=== PATIENT | male | born 1940 | race Caucasian/White ===

== ENCOUNTER → 2017-07-14 10:45 | Outpatient (CLI) | payer MEDICARE, OTHER, SELFPAY ==
--- NOTE | 2017-07-19 18:49 | LEAS_ITS ---
Arterial Study - Arterial Study Arterial Study: This is a 76-year-old male with a history of diabetes mellitus and coronary artery disease. The patient is suspected of having peripheral arterial occlusive disease, and is brought to the noninvasive vascular laboratory at this time for the purpose of bilateral noninvasive lower extremity arterial assessment. Doppler signal assessment was used to evaluate the pulses at ankle level bilaterally. On the right, the posterior tibial and dorsalis pedis pulses were triphasic. On the left, the posterior tibial and dorsalis pedis pulses were biphasic. Segmental limb pressures were obtained bilaterally. The right low thigh pressure and the right calf pressure were not obtained. The right ankle pressure, as determined by posterior tibial and dorsalis pedis pulses, could not be obtained due to the noncompressibility of the vasculature. The right digital pressure was measured at 126 mmHg. The left low thigh pressure was measured at 210 mmHg. The left calf pressure was measured at 205 mmHg. The left ankle pressure, as determined by posterior tibial pulse, was measured at 101 mmHg. The left ankle pressure, as determined by dorsalis pedis pulse, was measured at 116 mmHg. The left digital pressure was measured at 75 mmHg. Pulse-volume recordings were obtained bilaterally and segmentally. Waveform amplitudes appeared to be satisfactory at all levels bilaterally, but for the left ankle and left digital levels, which were diminished. The resting right ankle-brachial index could not be determined due to the noncompressibility of the vasculature. The resting left ankle-brachial index was calculated to be 0.77. Digital-brachial indices were calculated bilaterally. The right digital- brachial index was calculated to be 0.84. The left digital-brachial index was calculated to be 0.50. Impression: Based upon the findings of this resting noninvasive lower extremity arterial study, there is evidence of arterial calcification at ankle level in the right lower extremity. This precludes determination of an ankle-brachial index in the right lower extremity. However, triphasic waveforms are noted at ankle level in the right lower extremity, and the right digital-brachial index is normal. These findings are suggestive of relatively normal arterial flow in the right lower extremity. In the left lower extremity, biphasic waveforms were noted at ankle level, and the resting left ankle-brachial index and the left digital-brachial index are moderately diminished. 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 Clinical correlation is advised.
== END ==
PROVIDERS: Family Provider Family Medicine; PCP Family Medicine; Visit Provider Family Medicine
DX: I73.9 Peripheral vascular disease, unspecified (principal)
CPT/HCPCS: 93923

== ENCOUNTER 2017-09-02 16:15 | Emergency (ER) | payer MEDICARE, OTHER, SELFPAY ==
[2017-09-02 16:15] VITALS: BP 152/86; PULSE 109; RESP 16; TEMP 37.2; O2SAT 93; BMI 31.7
--- NOTE | 2017-09-02 16:31 | CT_ITS ---
STUDY: CT BRAIN WITHOUT CONTRAST REASON FOR EXAM: Male, 76 years old. Trauma. RADIATION DOSAGE (If Supplied By Facility): CTDIvol = ( 60.81 ) mGy, DLP = ( 1135.50 ) mGycm TECHNIQUE: Transaxial CT imaging of the brain was performed without administration of intravenous contrast material. Individualized dose optimization techniques were used for this CT. COMPARISON: 12/12/2016 FINDINGS: There is a stable partially calcified mass in the right cerebellopontine angle which likely represents a meningioma. There is no acute bleed or infarct. There are stable chronic ischemic and atrophic changes. The ventricles are normal in configuration. There is no hydrocephalus. The visualized paranasal sinuses are clear. The mastoid air cells are well aerated. There is no skull fracture. There is soft tissue swelling overlying the forehead. CT/Brain/Head without Contrast IMPRESSION: Stable chronic ischemic and atrophic changes. No acute intracranial abnormality. Stable partially calcified mass in the right cerebellopontine angle which likely represents a meningioma. Soft tissue swelling overlying the forehead. Electronically Signed: Leonard Harmon, at 17:05 EDT Tel , Service support ,
--- NOTE | 2017-09-02 16:31 | RAD_ITS ---
STUDY: X-RAY - LEFT WRIST REASON FOR EXAM: Male, 76 years old. Fall TECHNIQUE: 3 view(s) of the wrist were obtained. COMPARISON: None. FINDINGS: There is an impacted fracture of the distal radius. There is a lucency in the ulnar styloid which likely represents a nondisplaced fracture. There are moderate to severe degenerative changes in the carpal bones. There are no radiodense foreign bodies. RAD/Wrist min 3 Views IMPRESSION: Impacted fracture of the distal radius. Lucency in the ulnar styloid which likely represents a nondisplaced fracture. Degenerative change. Electronically Signed: Leonard Harmon, at 16:59 EDT Tel , Service support ,
--- NOTE | 2017-09-02 17:29 | ED.DCSUM_ITS ---
- ER Visit Summary Date of Service: 09/02/17 Chief Complaint: Fall History of Present Illness: The patient is a [address] Funes. He reports that he was laying down to put a call in on a bird feeder and lost his balance and fell forward. He tried to catch himself. He did hit his head. No loss of consciousness. No pain. He is right-hand dominant. He reports his left wrist pain that is 10 out of 10 with movement 8 out of 10 at rest. He denies any paresthesias. Is unsure when his last tetanus was. Physical Examination: Vitals: Stable. Afebrile. Head: Her centimeter hematoma to the left side of his forehead with a central abrasion. There is no laceration. Neck: No vertebral tenderness. Full ROM without difficulty. Cleared by NEXUS criteria. Back: No vertebral tenderness. General: A&O x 3. NAD. Cardiovascular exam: Regular rate and rhythm, no murmur, rub or gallop. Respiratory exam: Chest nontender. No crepitus. Clear to auscultation bilaterally. No wheezes or stridor. Abdominal exam: Soft, nontender, nondistended, normal bowel sounds. No pain in RUQ or LUQ specifically. No peritoneal signs. Extremity: Moderate tenderness palpation of the distal left radius. There is an obvious deformity. He is neurovascular intact distally.. Test Results: CT brain shows no acute disease. Does show a partially calcified mass in the right cerebellarpontine angle which is likely meningioma. Left wrist x-ray shows an impacted distal radius fracture with intra-articular extension. Emergency Department Course and Treatment: Patient was treated with oxycodone p.o. He had his tetanus updated. He was placed in an AP Ortho-Glass splint. Treatment Plan: Patient be discharged instructions from Dr. Ramirez in 1 week for another exam. Return to the emergency department for any worsening symptoms. Disposition: To home in improved and stable condition. Impression: 1. Fall. 2. Left distal radius fracture. 3. Left forearm AP splint, fabricated. This note was generated with [employer] software. It may contain incorrect words, spelling, and punctuation that were not noted in review of the chart prior to signing ED Disposition - Plan for ED Patient: Disposition: Home or Assisted Living Chief Complaint: Fall Instructions: ED Fx Colles Wrist No Redu Requ Prescriptions: Oxycodone HCl/Acetaminophen [Percocet 5/325] 1 tablet PO Q6H PRN PRN 5 Days #20 tablet PRN Reason: Pain Docusate Sodium [Colace] 100 mg PO DAILY #20 capsule Referrals: Leonard Ramirez MD [STAFF PHYSICIAN] - 1 Week
[2017-09-02] MEDS: Diphth,Pertuss(Acell),Tet Vac 0.5 ML Vial IM (17:40)
[2017-09-02] MEDS: oxyCODONE 5 MG Tablet PO (17:40)
[2017-09-02 18:14] VITALS: BP 148/82; PULSE 92; RESP 16; O2SAT 93
== END 2017-09-02 18:15 | disposition home or self-care (01) ==
PROVIDERS: Emergency Provider Emergency Medicine; Family Provider Family Medicine; PCP Family Medicine
DX: S52.572A Other intraarticular fracture of lower end of left radius, initial encounter for closed fracture (principal); S00.83XA Contusion of other part of head, initial encounter; E11.9 Type 2 diabetes mellitus without complications; I73.9 Peripheral vascular disease, unspecified; G62.9 Polyneuropathy, unspecified; Z79.82 Long term (current) use of aspirin; Z79.84 Long term (current) use of oral hypoglycemic drugs; Z79.899 Other long term (current) drug therapy; W17.89XA Other fall from one level to another, initial encounter; Y93.89 Activity, other specified; Y92.007 Garden or yard of unspecified non-institutional (private) residence as the place of occurrence of the external cause; Y99.8 Other external cause status
CPT/HCPCS: 29125; 70450; 73110; 90715; 99282

== ENCOUNTER → 2017-09-29 13:16 | Outpatient (CLI) | payer MEDICARE, OTHER, SELFPAY ==
[2017-09-29 16:18] LABS: PSA,Total- Diagnostic 1.77 ng/mL (0.0-4.0)
== END ==
PROVIDERS: Family Provider Family Medicine; PCP Family Medicine; Visit Provider Urology
DX: R97.20 Elevated prostate specific antigen [PSA] (principal)
CPT/HCPCS: 36415; 84153

== ENCOUNTER → 2017-10-27 07:51 | Outpatient (CLI) | payer MEDICARE, OTHER, SELFPAY ==
[2017-10-27 10:37] LABS: Hemoglobin A1c 8.2 % (4.2-6.3)
[2017-10-27 11:09] LABS: Microalbumin:Creatinine Ratio 345.7 mg/g CRE (<30 mg/g CRE)
[2017-10-27 11:10] LABS: ALB/GLOB Ratio 1.1 RATIO (0.9-2.4); AST(SGOT) 23 U/L (15-37); Alanine Aminotransfer ALT/SGPT 45 U/L (16-61); Albumin, Serum 3.9 g/dL (3.2-5.0); Alkaline Phosphatase 86 U/L (45-117); Anion Gap 12 (5-15); BUN 23 mg/dL (7-18); BUN/Creat Ratio 20.7 RATIO (10-20); Bilirubin, Direct 0.22 mg/dL (0.00-0.30); Calcium,Total 9.2 mg/dL (8.5-10.1); Chloride 105 mmol/L (98-107); Cholesterol 109 mg/dL (200); Creatinine, Serum 1.11 mg/dL (0.70-1.30); EST Glomerular Filtration Rate 69 mL/min (>60); Est Glom Filt Rate - Afr Amer 83 mL/min (>60); Globulin 3.6 g/dL (2.2-4.2); Glucose 110 mg/dL (74-106); High Density Lipoprotein 40 mg/dL; Potassium 3.9 mmol/L (3.5-5.1); Protein, Total 7.5 g/dL (6.4-8.2); Sodium Level 141 mmol/L (136-145); Triglycerides 51 mg/dL; Very Low Density Lipoprotein 10 mg/dL (5-40)
[2017-10-28 14:04] LABS: Hep C Antibodies 0.1 s/co ratio (0.0-0.9)
== END ==
PROVIDERS: Family Provider Family Medicine; PCP Family Medicine; Visit Provider Nurse Practitioner Family
DX: E11.40 Type 2 diabetes mellitus with diabetic neuropathy, unspecified (principal); E78.5 Hyperlipidemia, unspecified; R53.83 Other fatigue; Z79.899 Other long term (current) drug therapy
CPT/HCPCS: 36415; 80053; 80061; 82043; 82248; 82570; 83036; 86803

== ENCOUNTER 2017-12-07 18:23 | Inpatient (IN) | payer MEDICARE, OTHER, SELFPAY ==
[2017-12-07] VITALS (7 sets, daily range): BP systolic 112–157; BP diastolic 77–109; PULSE 94–116; RESP 20–26; TEMP 36.3–36.7; O2SAT 87–98; BMI 29.8; BMI 32.8
--- NOTE | 2017-12-07 18:45 | ED.VISSUMM ---
- ER Visit Summary Date of Service: 12/07/17 Chief Complaint: Cough History of Present Illness: The patient is a [address] Ayoub, Dr. Phillips, and Dr. Funes. He reports he has a cough began approximately 2 weeks ago. Is nonproductive. He has had chills without fever. Reports he has had shortness of breath over the same timeframe, but it is gotten much worse the past 2 days. States that his shortness of breath is severe at this time. He denies any chest pain or abdominal pain. He has been nauseated and having the dry heaves. He has vomited once. No blood in his emesis. His last bowel was today. No melena or hematochezia. No other complaints. Physical Examination: Vitals: 97.3, 112/77, 116, 24, 87% on room air which is hypoxic General: Well-nourished and well-developed. Head: Normocephalic atraumatic. Neck: Supple, no lymphadenopathy. No JVD. Nontender. Cardiovascular: Tachycardic irregular rhythm with a 2 out of 6 systolic murmur. Respiratory: No respiratory distress. Rhonchi at the left base. Abdominal: Soft, nontender, nondistended, normal bowel sounds. No guarding, rebound, or peritoneal signs. Back: Nontender. Extremities: Nontender, 1+ pitting edema over his lower extremities bilaterally. Skin: Normal color, no rash. Neurologic: Alert and oriented ?3. Cranial nerves II through XII are intact. Normal strength and sensation. Psych: Normal affect. Test Results: EKG is sinus tach at 108 with PACs, PVCs, right bundle branch block. Chem-7 is more for chloride 109, BUN 25, glucose 190. Initial troponin 0 0.041. CBC is marked for an H&H 12.0, 38.7. Segment neutrophils 81 lymphs lites of 9. Lactic acid is 3.8. Chest x-ray read by the radiologist is mild pulmonary valve venous congestion. I do not feel that this explains patient's degree of hypoxia therefore a CTA of the chest was performed. It showed no PE. However, he did have groundglass opacity in the left upper lobe with which is consistent with an interstitial pneumonia. Does have small pleural effusions. Emergency Department Course and Treatment: Patient had an IV placed. He was given Cardizem IV. Patient's blood pressure remained stable while in the emergency department. He was given Levaquin and Zosyn IV. Treatment Plan: Patient was discussed with Dr. Read. He will be admitted to the hospital for further evaluation and treatment. Disposition: Admitted in serious condition. Impression: 1. Atrial fibrillation with RVR. 2. Pneumonia, community-acquired. 3. Severe sepsis. 4. Critical care time 30 minutes. This note was generated with [email or web address] dictation software. It may contain incorrect words, spelling, and punctuation that were not noted in review of the chart prior to signing ED Disposition - Plan for ED Patient: Chief Complaint: Shortness of Breath
[2017-12-07] MEDS: 0.9% Normal Saline 1,000 ML 150 ML IV (18:58)
[2017-12-07] MEDS: dilTIAZem 25 MG/5 ML Vial 20 MG IV BOLUS (18:58)
[2017-12-07 19:12] LABS: Absolute Lymphocyte Count 0.59 X10^3/ul (0.83-4.51); Absolute Neutrophil Count 5.1 X10^3/uL (2.0-7.7); Basophil# 0.02 X10^3/uL; Basophil% 0.3 % (0-1); Eosinophil# 0.06 X10^3/uL; Eosinophils% 0.9 % (0-5); Hematocrit 38.7 % (40-54); Lymphocyte # 0.59 X10^3/ul (4.0); Lymphocyte % 9.3 % (19-41); Mean Corpuscular Hgb 27.6 pg (27.0-32.0); Mean Platelet Vol. 10.2 fl (6.2-12.0); Monocyte# 0.49 X10^3/uL; Monocyte% 7.8 % (0-10); Neutrophil # 5.12 X10^3/uL (2.7-7.7); Neutrophil % 81.1 % (47-70); Platelet Count 202 K/mm3 (150-450); RBC Distribution Width CV 16.4 % (11.6-14.6); RBC Distribution Width SD 53.1 fl (35.1-43.9); Red Blood Count 4.35 M/mm3 (4.6-6.2); White Blood Count 6.3 K/mm3 (4.4-11.0)
[2017-12-07 19:14] LABS: Differential Indicated SCAN CRITERIA MET; POSITIVE COUNT NO; POSITIVE DIFFERENTIAL YES; POSITIVE MORPHOLOGY NO
[2017-12-07 19:33] LABS: BUN 25 mg/dL (7-18); Estimated Creatinine Clearance 48.96 ml/min; Glucose 190 mg/dL (74-106)
[2017-12-07 19:34] LABS: Anion Gap 13 (5-15); BUN/Creat Ratio 20.8 RATIO (10-20); Calcium,Total 9.1 mg/dL (8.5-10.1); Chloride 109 mmol/L (98-107); EST Glomerular Filtration Rate 63 mL/min (>60); Est Glom Filt Rate - Afr Amer 76 mL/min (>60); Sodium Level 143 mmol/L (136-145)
[2017-12-07 19:38] LABS: Platelet Estimate ADEQUATE (ADEQ)
[2017-12-07 19:39] LABS: Red Cell Morphology NORM C+C NORMAL (NORM C&C)
[2017-12-07 19:43] LABS: Lactic Acid 3.8 mmol/L (0.4-2.0)
--- NOTE | 2017-12-07 19:52 | ED.RN ---
lactic of 3.8 reported to . verbalized understanding
--- NOTE | 2017-12-07 21:12 | PCM.HP.STD ---
Problem List (1) Severe sepsis Status: Acute (2) Pneumonia Status: Acute Qualifiers: Pneumonia type: due to unspecified organism Laterality: left Lung location: upper lobe of lung Qualified Code(s): J18.1 - Lobar pneumonia, unspecified organism (3) Sick sinus syndrome Status: Chronic (4) CLEMENT (obstructive sleep apnea) Status: Chronic (5) Congestive heart failure, unspecified Status: Chronic Qualifiers: Heart failure type: unspecified Heart failure chronicity: unspecified Qualified Code(s): I50.9 - Heart failure, unspecified (6) Carotid artery stenosis Status: Chronic Qualifiers: Laterality: unspecified laterality Qualified Code(s): I65.29 - Occlusion and stenosis of unspecified carotid artery (7) Chronic atrial fibrillation Status: Chronic (8) Atherosclerotic heart disease of robinson coronary artery without angina pectoris Status: Chronic Qualifiers: [place] vs. transplanted heart: unspecified whether robinson or transplanted heart Qualified Code(s): I25.10 - Atherosclerotic heart disease of robinson coronary artery without angina pectoris (9) History of maze procedure Status: Chronic Comment: mitral valve repair and MAZE procedure 01/24/[address] Tolliver @ [facility] (10) Duodenal ulcer Status: Chronic (11) Hyperlipidemia Status: Chronic Qualifiers: Hyperlipidemia type: pure hypercholesterolemia Qualified Code(s): E78.00 - Pure hypercholesterolemia, unspecified; E78.0 - Pure hypercholesterolemia (12) Status post placement of cardiac pacemaker Status: Chronic Comment: Permanent pacemaker placement 02/02/16 @ [facility] (13) Status post mitral valve repair Status: Chronic Comment: mitral valve repair and MAZE procedure 01/24/[address] Tolliver @ [facility] (14) Status post aortic valve replacement with bioprosthetic valve Status: Chronic Comment: Aortic Valve Replacement w/ 23-mm Jay-Aragon pericardial valve (15) DM2 (diabetes mellitus, type 2) Status: Chronic Qualifiers: Diabetes mellitus senior living insulin use: without senior living use Diabetes mellitus complication status: with unspecified complications Qualified Code(s): E11.8 - Type 2 diabetes mellitus with unspecified complications History of Present Illness Date of Admission: 12/07/17 Chief Complaint: Cough, Dyspnea, Weakness The patient is a 77 y/o M w/ PMHx: PAF s/p MAZE, Diabetes mellitus type II, GERD w/ Hx duodenal Ulcer, 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 CHF history, PAD/Carotid Disease, CLEMENT, HTN, HLD, s/p pacemaker status, Osteoarthritis, Anxiety and Depression who presents to the [facility] ED on 12/07/17 with history of ongoing progressively worsening dyspnea, not markedly productive cough, debilitating weakness x 2 weeks but worsened over the last 2 days. and patient note that he was seen this past year by Dr. Phillips and treated for fungal infection but improved following. In the ED work-up included T 97.3, heart rate 116, BP 112/77, respiratory rate 24 with 87% on room air--> 95% on 2 L nasal cannula, CBC with WBC 6.3, hemoglobin 12, platelet 202, BMP with chloride 109, BUN/creatinine 25/1.20, glucose 190, lactic acid 3.8, troponin 0 0.041, chest x-ray with cardiac enlargement and mild congestion, CTPA with no evidence of acute PE, mild mediastinal adenopathy, groundglass opacity left upper lobe suspicious for pneumonia, small pleural effusions, mild ascites. In the ED patient administered Cardizem 20 mg IV ?1 bolus, normal saline 1 L, Levaquin, Rocephin IV. Past Medical History Past Medical History (Chronic Problems): Chronic Problems (Last Updated 09/16/17 @ 19:52 by Gilma Phelps) Sick sinus syndrome (Chronic) CLEMENT (obstructive sleep apnea) (Chronic) Congestive heart failure, unspecified (Chronic) Other secondary pulmonary hypertension (Chronic) Nonrheumatic mitral valve regurgitation (Chronic) Nonrheumatic aortic (valve) stenosis (Chronic) Nonrheumatic aortic (valve) insufficiency (Chronic) Carotid artery stenosis (Chronic) Chronic atrial fibrillation (Chronic) Atherosclerotic heart disease of robinson coronary artery without angina pectoris (Chronic) History of maze procedure (Chronic) mitral valve repair and MAZE procedure 01/24/[address] Tolliver @ [facility] UGIB (upper gastrointestinal bleed) (Chronic) Duodenal ulcer (Chronic) Physical debility (Chronic) Supratherapeutic INR (Chronic) Hypokalemia (Chronic) Pancytopenia (Chronic) Symptomatic anemia (Chronic) Sepsis (Chronic) Hyperlipidemia (Chronic) Status post placement of cardiac pacemaker (Chronic) Permanent pacemaker placement 02/02/16 @ [facility] Status post mitral valve repair (Chronic) mitral valve repair and MAZE procedure 01/24/[address] Tolliver @ [facility] 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) Aortic Valve Replacement w/ 23-mm Jay-Aragon pericardial valve Atrial fibrillation (Chronic) DM2 (diabetes mellitus, type 2) (Chronic) Medical History: Medical History (Last Updated 09/16/17 @ 19:52 by Gilma Phelps) Sick sinus syndrome (Chronic) I49.5 CLEMENT (obstructive sleep apnea) (Chronic) G47.33 Congestive heart failure, unspecified (Chronic) I50.9 Other secondary pulmonary hypertension (Chronic) I27.29 Nonrheumatic mitral valve regurgitation (Chronic) I34.0 Nonrheumatic aortic (valve) stenosis (Chronic) I35.0 Nonrheumatic aortic (valve) insufficiency (Chronic) I35.1 Carotid artery stenosis (Chronic) I65.29 Chronic atrial fibrillation (Chronic) I48.2 Atherosclerotic heart disease of robinson coronary artery without angina pectoris (Chronic) I25.10 Hyperlipidemia (Chronic) E78.5 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) Z95.3 Aortic Valve Replacement w/ 23-mm Jay-Aragon pericardial valve DM2 (diabetes mellitus, type 2) (Chronic) E11.9 Hypothyroidism E03.9 Allergies No Known Allergies Allergy (Verified 12/07/17 18:24) Home Medications: Ambulatory Orders Medication Instructions Recorded Glimepiride [Amaryl] 4 mg PO DAILY@0800 #30 tab 02/25/17 Metformin HCl [Glucophage] 500 mg PO BIDCM #30 tab 02/25/17 Pioglitazone [Actos] 30 mg PO DAILY@0800 #30 tab 02/25/17 aspirin 81 mg tablet,delayed 81 mg PO QDAY 07/24/17 release sertraline 100 mg tablet 100 mg PO QDAY 30 Days #30 tab 07/24/17 Cilostazol [Pletal] 100 mg PO DAILY 12/07/17 Surgical History: Surgical History (Last Reviewed 07/24/17 @ 09:26 by Abhishek Ayoub MD) History of maze procedure (Chronic) Z98.890 mitral valve repair and MAZE procedure 01/24/[address] Tolliver @ [facility] Status post placement of cardiac pacemaker (Chronic) Z95.0 Permanent pacemaker placement 02/02/16 @ [facility] Status post mitral valve repair (Chronic) Z98.890 mitral valve repair and MAZE procedure 01/24/[address] 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 Psychiatric History: No pertinent psych hx Lives: Spouse/ Significant Other Smoking Status: Former smoker Tobacco Use: Non-smoker Alcohol: None Drugs: None - *Family History Maternal Family History: Family History (Last Reviewed 07/24/17 @ 09:26 by Abhishek Ayoub MD) Mother Myocardial infarction CAD (coronary artery disease) Hypertension Sister Hypertension CVA (cerebral vascular accident) Son Diabetes History Items: Heart Disease, Hypertension Paternal Family History: Family History (Last Reviewed 07/24/17 @ 09:26 by Abhishek Ayoub MD) Mother Myocardial infarction CAD (coronary artery disease) Hypertension Sister Hypertension CVA (cerebral vascular accident) Son Diabetes History Items: No pertinent history Sibling Family History: Family History (Last Reviewed 07/24/17 @ 09:26 by Abhishek Ayoub MD) Mother Myocardial infarction CAD (coronary artery disease) Hypertension Sister Hypertension CVA (cerebral vascular accident) Son Diabetes History Items: Hypertension, Stroke Offspring Family History: Family History (Last Reviewed 07/24/17 @ 09:26 by Abhishek Ayoub MD) Mother Myocardial infarction CAD (coronary artery disease) Hypertension Sister Hypertension CVA (cerebral vascular accident) Son Diabetes History Items: Diabetes Review of Systems Constitutional: Reports: Anorexia, Malaise, Weakness, Fatigue. Denies: Chills, Fever, Weight Change HEENT: Denies: Head Aches, Sinus Congestion, Sinus Drainage Cardiovascular: Denies: Chest Pain, Palpitations Respiratory: Reports: Cough, Shortness of Breath, Shortness of breath at rest, Shortness of breath upon exertion, Wheezing. Denies: Sputum production Gastrointestinal: Denies: Abdominal Pain, Nausea, Vomiting Genitourinary: Denies: Dysuria Musculoskeletal: Reports: Back Pain. Denies: Joint Pain, Joint Tenderness Skin: Denies: Rash, Wounds Neurological: Denies: Numbness, Tingling, Focal weakness Psychiatric: Reports: Anxiety, Depression. Denies: Homicidal Ideations, Suicidal Ideations Hematologic/ Lymphatic: Reports: Anemia, Easy Bruising, Easy Bleeding VTE Information - Inpt Only VTE Present on Admission: No VTE Mechan Device Prophylaxis: SCD's VTE Pharm Prophylaxis ordered?: Yes Patient Problems: Active and Suspected Problems (Last Updated 09/16/17 @ 19:52 by Gilma Phelps) Severe sepsis (Acute) Pneumonia (Acute) Subjective: Seated upright in the ED bed, fatigued appearing, increased respiratory rate, accessory muscle usage, intermittent desaturations noted. Objective: Physical Examination: General: awake, alert, oriented x 3 and cooperative, seated upright in the ED bed, increased work of breathing, accessory muscle usage, intermittent desaturations, fatigued appearing. Skin: normal color, turgor, no icterus, cyanosis. HEENT: AT/NC, EOMI, PERRLA, dry MM, no carotid bruits or JVD noted. Lungs: Severely diffusely diminished breath sounds, greater bases, occasional expiratory wheeze, rales, increased work of breathing, accessory muscle usage. Heart: Tachycardic with regular rhythm; no gallop, rub audible, SM. Abdomen: soft, NTTP, ND, normal BS, no HSM. Extremities: no cyanosis, clubbing, BL ankle edema. Neurological: patient awake, alert, oriented x 3; cognitive function intact; pupils equally reactive to light and accomodation; cranial nerves II-XII grossly normal, moving all 4 extremities, no focal deficits, strength severely globally decreased secondary to acute presentation. Psychiatric: affect appears fatigued, no acute evidence of depressive or anxiety feelings. - Physical Exam Vital Signs Temp Pulse Resp BP Pulse Ox 97.3 F L 97 26 H 150/100 H 95 12/07/17 18:23 12/07/17 20:19 12/07/17 20:19 12/07/17 20:19 12/07/17 20:19 Oxygen Flow Rate (L/min) 2 Oxygen Delivery Method Nasal Cannula Weight: 190 lb 11.198 oz Body Mass Index (BMI) 29.8 Finger Stick Blood Glucose 235 Laboratory Tests Past 24 Hrs 12/07/17 12/07/17 12/07/17 18:45 18:45 18:45 WBC 6.3 RBC 4.35 L Hgb 12.0 L Hct 38.7 L MCV 89.0 MCH 27.6 MCHC 31.0 L RDW 16.4 H RDW Differential 53.1 H Plt Count 202 MPV 10.2 Immature Gran % (Auto) 0.600 Neut % (Auto) 81.1 H Lymph % (Auto) 9.3 L [place] % (Auto) 7.8 Eos % (Auto) 0.9 Baso % (Auto) 0.3 Absolute Neuts (auto) 5.1 Absolute Lymphs (auto) 0.59 L Total Counted Not Reportable Differential Comment SEE COMMENT Platelet Estimate ADEQUATE RBC Morphology NORM C+C Sodium 143 Potassium 4.0 Chloride 109 H Carbon Dioxide 21.0 Anion Gap 13 BUN 25 H Creatinine 1.20 Estim Creat Clear Calc 48.96 Est GFR (MDRD) Af Amer 76 Est GFR (MDRD) Non-Af 63 BUN/Creatinine Ratio 20.8 H Glucose 190 H Lactic Acid 3.8 H Calcium 9.1 Troponin I 0.041 Assessment/Plan All Active Problems (Last Updated 09/16/17 @ 19:52 by Gilma Phelps) Severe sepsis (Acute) Pneumonia (Acute) Aortic stenosis, severe (Resolved) The patient is a 77 y/o M w/ PMHx: PAF s/p MAZE, Diabetes mellitus type II, GERD w/ Hx duodenal Ulcer, 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 CHF history, PAD/Carotid Disease, CLEMENT, HTN, HLD, s/p pacemaker status, Osteoarthritis, Anxiety and Depression who presents to the [facility] ED on 12/07/17 with history of ongoing progressively worsening dyspnea, not markedly productive cough, debilitating weakness x 2 weeks but worsened over the last 2 days. (1) Severe Sepsis secondary to Acute Hypoxic Respiratory Failure secondary to Community Acquired Pneumonia, Possible Gram Negative Organism: ED work-up included T 97.3, heart rate 116, BP 112/77, respiratory rate 24 with 87% on room air--> 95% on 2 L nasal cannula, CBC with WBC 6.3, hemoglobin 12, platelet 202, BMP with chloride 109, BUN/creatinine 25/1.20, glucose 190, lactic acid 3.8, troponin 0 0.041, chest x-ray with cardiac enlargement and mild congestion, CTPA with no evidence of acute PE, mild mediastinal adenopathy, groundglass opacity left upper lobe suspicious for pneumonia, small pleural effusions, mild ascites. Notable increased work of breathing, accessory muscle usage and hypoxia as noted upon presentation to the ED. Will admit to PCU given his severity, maintain on oxygen with wean as tolerated to room air, continue ATC duonebs, PRN albuterol, maintained on IV Levaquin and Rocephin given severity, HOB, IS parameters w/ pending sputum cultures and urine antigens as well as viral respiratory panel. Bld cx x 2 obtained in the ED. Lactic acid repeat trending per facility protocol. PT, OT, CM for discharge planning. ABG pending. (2) Valvular Heart Disease s/p MV Repair and AVR w/ bovine bioprosthetic valve, 11/15/16 ECHO w/ moderate concentric LVH, EF 65%, moderately dilated RV, severely enlarged LA, severe enlarged RA, moderate diffuse MV thickening, moderate MV stenosis, moderately severe TV insufficiency, moderate pulmonary hypertension, RVSP 49 mmHg. (3) ? CHF history: Not previously noted, not in recent 07/2017 Cardiology office visit, maintain on regimen asa, pletal, not on statin or BB nor ACEI. (4) PAF s/p MAZE: Sinus tachycardia with PAC, PVC w/ administration cardizem bolus in the ED with improvement. 11/15/16 ECHO w/ moderate concentric LVH, EF 65%, moderately dilated RV, severely enlarged LA, severe enlarged RA, moderate diffuse MV thickening, moderate MV stenosis, moderately severe TV insufficiency, moderate pulmonary hypertension, RVSP 49 mmHg. Maintained on asa, pletal as noted. (5) Diabetes mellitus type II: Hold oral home regimen, ADA diet, accu checks w/ ISS. (6) GERD w/ Hx duodenal Ulcer: Famotidine. (7) PAD/Carotid Disease: Maintain on home asa, pletal. (8) Anxiety and Depression: Maintain on home sertraline regimen. (9) CLEMENT: CPAP q HS. (10) Hx Sick Sinus Syndrome: s/p pacemaker placement. (11) DVT prophylaxis: SCDs, lovenox. (12) CODE status: Patient does have living will in place. is HCPOA and present during discussions. Discussed CODE status at length including difference between FULL code, DNR-CCA and DNR-CC status. Following discussions about the differences in these status, confirmed with and patient DNR-CCA, no intubation status. Advanced Care Planning Face to Face Time: 18 minutes. Code Visit Inpatient E&M: 35998 Init Hosp L3 Procedures: 63683 Advncd Care Plan 30 Min
[2017-12-07] MEDS: levoFLOXacin IV 750 MG/150 ML BAG 150 MG IV (21:28)
--- NOTE | 2017-12-07 21:55 | NURSING ---
Called [facility] ED charge nurse, tita to send patient to the floor.
[2017-12-07 22:55] LABS: Reflex Lactate? Y
[2017-12-07] MEDS: 0.9% Normal Saline 1,000 ML 125 ML IV (23:45)
[2017-12-07 23:57] LABS: Magnesium 2.1 mg/dL (1.6-2.6)
[2017-12-08] VITALS (19 sets, daily range): BP systolic 115–142; BP diastolic 71–98; PULSE 96–139; RESP 12–34; TEMP 36.1–37.1; O2SAT 88–98
[2017-12-08] LABS: Lactic Acid 2.2 mmol/L (0.4-2.0)
[2017-12-08] MEDS: Famotidine 20 MG Tablet PO ×3 (00:05→22:06)
[2017-12-08] MEDS: guaiFENesin 1,200 MG Tablet 1200 MG PO ×3 (00:10→22:06)
[2017-12-08 00:11] LABS: Bedside Glucose 119 mg/dL (70-110)
[2017-12-08 01:01] LABS: Allen Test POS; Base Excess -4 mmol/L (-2 to +2); Bicarbonate 19.1 mmol/L (22-26); Blood Gas Specimen Type ART; EPAP 10; FI02 30; PO2 102 mmHG (75-100); RR 28; SITE R Radial; SO2 98 % (95-99); Time Given 45; Total Carbon Dioxide 20 mmol/L; pCO2 25.7 mmHg (35-45); pH 7.48 (7.35-7.45)
[2017-12-08] MEDS: 0.9% Normal Saline 1,000 ML 125 ML IV (03:43)
[2017-12-08 05:54] LABS: Lactic Acid 1.4 mmol/L (0.4-2.0)
[2017-12-08] MEDS: Ipratropium/Albuterol Sulfate 3 ML AMPUL.NEB INHALATION ×4 (07:41→19:07)
[2017-12-08 07:46] LABS: Bedside Glucose 93 mg/dL (70-110)
--- NOTE | 2017-12-08 07:47 | NURSING ---
Per Eliana RN pt's blood sugar in the 50's at 0700. Eliana RN gave patient 2 orange juices and peanut butter crackers. This nurse rechecked blood sugar at 0715 and it was 66. Blood sugar recheck at 0740 was 93. Pt. was asymptomatic.
[2017-12-08] MEDS: Ceftriaxone 1 GM/50 ML BAG IV (09:15)
[2017-12-08] MEDS: Enoxaparin 40 MG/0.4 ML Syringe SC (09:30)
[2017-12-08] MEDS: Aspirin E.C. 81 MG Tablet PO (09:30)
[2017-12-08] MEDS: Sertraline 100 MG Tablet PO (09:30)
[2017-12-08] MEDS: Cilostazol 50 MG Tablet 100 MG PO (09:30)
[2017-12-08] MEDS: levoFLOXacin IV 750 MG/150 ML BAG 100 MG IV (10:13)
[2017-12-08] MEDS: Insulin Lispro 100 UNIT/ML INSULN.PEN SC ×2 (11:24→22:06)
[2017-12-08 11:36] LABS: Bedside Glucose 224 mg/dL (70-110)
--- NOTE | 2017-12-08 12:51 | PCM.PN.HOSP ---
Patient Problems: Active and Suspected Problems (Last Updated 09/16/17 @ 19:52 by Gilma Phelps) Severe sepsis (Acute) Pneumonia (Acute) Subjective: Breathing better. Coughing with some productive phlegm, unknown color. Vitals/I&O's: Vital Signs Temp Pulse Resp BP Pulse Ox 36.8 C 108 H 18 115/71 94 12/08/17 09:40 12/08/17 11:08 12/08/17 09:40 12/08/17 09:40 12/08/17 09:40 Oxygen Flow Rate (L/min) 2 Oxygen Delivery Method Nasal Cannula Weight: 95 kg Body Mass Index (BMI) 32.8 Intake and Output for Last 24 Hours 12/06/17 12/07/17 12/08/17 23:59 23:59 23:59 Intake Total 65 65 2905 / 2905 Balance 65 2905 / 2905 General: Alert, Cooperative, No apparent distress HEENT: Atraumatic, Normocephalic Oral: Moist Mucosa, No Gingival or Mucosal Lesions/ Ulcerations Neck: No Nodes, Thyroid Normal Size and Texture Lungs: No rhonchi, No wheeze, Diminished Cardiovascular: Regular rate, Regular Rhythm, Normal S1, Normal S2, No murmurs Abdomen: Bowel Sounds Present, Soft, Non Tender, Non-Distended, No Hepato-splenomegaly Extremities: No edema, No Calf Tenderness Skin: No rashes, No breakdown Psych/Mental Status: Normal Affect, Appropriate Microbiology Past 72 Hours 12/07/17 23:34 Mucosa - Nasopharyngeal Respiratory Panel (PCR) - Final 12/08/17 07:53 Urine, Clean Catch Streptococcus pneumoniae Antigen (M - Final 12/08/17 07:53 Urine, Clean Catch Legionella Antigen - Final Laboratory Results 12/07/17 23:25: Lactic Acid 2.2 H 12/07/17 23:25: Magnesium 2.1, Troponin I 0.048 H 12/08/17 00:02: POC Glucose 119 H 12/08/17 00:56: Specimen Type ART, Sample Site R Radial, pH 7.48 H, Bicarbonate Actual 19.1 L, POC Total CO2 20, Base Excess -4 L, O2 Saturation 98, O2 % 30, ABG pCO2 25.7 L, ABG pO2 102 H, Jayson Test POS, Respiration Rate 28, O2 Delivery Device Bi / C PAP, EPAP 10, Blood Gas Notified Whom TORIE GUERRERO, Blood Gas Notified Time 45 12/08/17 01:44: Troponin I 0.056 H 12/08/17 05:18: Troponin I 0.050 H 12/08/17 05:18: Lactic Acid 1.4 12/08/17 07:41: POC Glucose 93 12/08/17 11:21: POC Glucose 224 H Current Medications Acetaminophen (Tylenol) 650 mg PO Q4H PRN PRN PRN Reason: FEVER Acetaminophen (Tylenol) 650 mg PO Q6H PRN PRN PRN Reason: Mild Pain (scale 0-3)/T>100.7 Al Hydroxide/Mg Hydroxide (Mylanta Ii) 30 ml PO Q6H PRN PRN PRN Reason: Gastric burning Albuterol Sulfate (Ventolin Aerosols) 2.5 mg INHALATION Q2H PRN PRN PRN Reason: SHORTNESS OF BREATH Albuterol/Ipratropium (Duoneb) 3 ml INHALATION Q4HWA.RT [facility] Last Admin: 12/08/17 07:41 Dose: 3 ml Aspirin (Ecotrin) 81 mg PO DAILYCM [facility] Last Admin: 12/08/17 09:30 Dose: 81 mg Cilostazol (Pletal) 100 mg PO DAILY [facility] Last Admin: 12/08/17 09:30 Dose: 100 mg Enoxaparin Sodium (Lovenox) 40 mg SC DAILY@1000 [facility] Last Admin: 12/08/17 09:30 Dose: 40 mg Famotidine (Pepcid) 20 mg PO BID [facility] Last Admin: 12/08/17 09:30 Dose: 20 mg Guaifenesin (Mucinex) 1,200 mg PO BID [facility] Last Admin: 12/08/17 09:30 Dose: 1,200 mg Sodium Chloride () 1,000 mls @ 125 mls/hr IV .Q8H [facility] Last Admin: 12/08/17 03:43 Dose: 125 mls/hr Ceftriaxone Sodium (Rocephin) 1 gm in 50 mls @ 100 mls/hr IV Q12 [facility] Last Admin: 12/08/17 09:15 Dose: 100 mls/hr Levofloxacin (Levaquin Iv) 750 mg in 150 mls @ 100 mls/hr IV Q24 [facility] Last Admin: 12/08/17 10:13 Dose: 100 mls/hr Insulin Human Lispro (Humalog Kwikpen (Bkc)) 0 unit SC ACHS SILVA PRN Reason: Protocol Last Admin: 12/08/17 11:24 Dose: 2 u Magnesium Hydroxide (Milk Of Magnesia) 30 ml PO DAILY PRN PRN Reason: Constipation Ondansetron HCl (Zofran) 4 mg IV Q8H PRN PRN PRN Reason: NAUSEA Promethazine HCl (Phenergan) 12.5 mg IV Q6H PRN PRN PRN Reason: NAUSEA/VOMITING Sertraline HCl (Zoloft) 100 mg PO DAILY [facility] Last Admin: 12/08/17 09:30 Dose: 100 mg Sodium Chloride () 5 - 30 ml IV UD PRN PRN Reason: SALINE FLUSH Medical Necessity - Tobacco Use Smoking Status: Former smoker Tobacco Use: Non-smoker Assessment/Plan All Active Problems (Last Updated 09/16/17 @ 19:52 by Gilma Phelps) Severe sepsis (Acute) Pneumonia (Acute) Aortic stenosis, severe (Resolved) 1. Acute hypoxic and hypercapnic respiratory failure Secondary to possible pneumonia, pleural effusions, sleep apnea. Wean oxygen as tolerated Pulmonary toilet Pulmonary consult 2. Suspected pneumococcal pneumonia Continue with Levaquin. DC Rocephin Strep and Legionella antigens were negative 3. Severe sepsis Present on admission Secondary to pneumonia Of the possibilities could be related with the hypoxia as to the etiology of lactic acidosis 4. Pleural effusions Bibasilar Check echocardiogram 5. Paroxysmal atrial fibrillation Stable at this time On aspirin 6. DVT prophylaxis with Lovenox Discussed with family at bedside Code Visit Inpatient E&M: 15852 Subs Hosp L2
--- NOTE | 2017-12-08 13:00 | PN_ITS ---
Patient Problems: Active and Suspected Problems (Last Updated 09/16/17 @ 19:52 by Gilma Phelps) Severe sepsis (Acute) Pneumonia (Acute) Subjective: Breathing better. Coughing with some productive phlegm, unknown color. Vitals/I&O's: Vital Signs Temp Pulse Resp BP Pulse Ox 36.8 C 108 H 18 115/71 94 12/08/17 09:40 12/08/17 11:08 12/08/17 09:40 12/08/17 09:40 12/08/17 09:40 Oxygen Flow Rate (L/min) 2 Oxygen Delivery Method Nasal Cannula Weight: 95 kg Body Mass Index (BMI) 32.8 Intake and Output for Last 24 Hours 12/06/17 12/07/17 12/08/17 23:59 23:59 23:59 Intake Total 65 65 2905 / 2905 Balance 65 2905 / 2905 General: Alert, Cooperative, No apparent distress HEENT: Atraumatic, Normocephalic Oral: Moist Mucosa, No Gingival or Mucosal Lesions/ Ulcerations Neck: No Nodes, Thyroid Normal Size and Texture Lungs: No rhonchi, No wheeze, Diminished Cardiovascular: Regular rate, Regular Rhythm, Normal S1, Normal S2, No murmurs Abdomen: Bowel Sounds Present, Soft, Non Tender, Non-Distended, No Hepato- splenomegaly Extremities: No edema, No Calf Tenderness Skin: No rashes, No breakdown Psych/Mental Status: Normal Affect, Appropriate Microbiology Past 72 Hours 12/07/17 23:34 Mucosa - Nasopharyngeal Respiratory Panel (PCR) - Final 12/08/17 07:53 Urine, Clean Catch Streptococcus pneumoniae Antigen (M - Final 12/08/17 07:53 Urine, Clean Catch Legionella Antigen - Final Laboratory Results 12/07/17 23:25: Lactic Acid 2.2 H 12/07/17 23:25: Magnesium 2.1, Troponin I 0.048 H 12/08/17 00:02: POC Glucose 119 H 12/08/17 00:56: Specimen Type ART, Sample Site R Radial, pH 7.48 H, Bicarbonate Actual 19.1 L, POC Total CO2 20, Base Excess -4 L, O2 Saturation 98, O2 % 30, ABG pCO2 25.7 L, ABG pO2 102 H, Jayson Test POS, Respiration Rate 28, O2 Delivery Device Bi / C PAP, EPAP 10, Blood Gas Notified Whom TORIE GUERRERO, Blood Gas Notified Time 45 12/08/17 01:44: Troponin I 0.056 H 12/08/17 05:18: Troponin I 0.050 H 12/08/17 05:18: Lactic Acid 1.4 12/08/17 07:41: POC Glucose 93 12/08/17 11:21: POC Glucose 224 H Current Medications Acetaminophen (Tylenol) 650 mg PO Q4H PRN PRN PRN Reason: FEVER Acetaminophen (Tylenol) 650 mg PO Q6H PRN PRN PRN Reason: Mild Pain (scale 0-3)/T>100.7 Al Hydroxide/Mg Hydroxide (Mylanta Ii) 30 ml PO Q6H PRN PRN PRN Reason: Gastric burning Albuterol Sulfate (Ventolin Aerosols) 2.5 mg INHALATION Q2H PRN PRN PRN Reason: SHORTNESS OF BREATH Albuterol/Ipratropium (Duoneb) 3 ml INHALATION Q4HWA.RT [facility] Last Admin: 12/08/17 07:41 Dose: 3 ml Aspirin (Ecotrin) 81 mg PO DAILYCM [facility] Last Admin: 12/08/17 09:30 Dose: 81 mg Cilostazol (Pletal) 100 mg PO DAILY [facility] Last Admin: 12/08/17 09:30 Dose: 100 mg Enoxaparin Sodium (Lovenox) 40 mg SC DAILY@1000 [facility] Last Admin: 12/08/17 09:30 Dose: 40 mg Famotidine (Pepcid) 20 mg PO BID [facility] Last Admin: 12/08/17 09:30 Dose: 20 mg Guaifenesin (Mucinex) 1,200 mg PO BID [facility] Last Admin: 12/08/17 09:30 Dose: 1,200 mg Sodium Chloride () 1,000 mls @ 125 mls/hr IV .Q8H [facility] Last Admin: 12/08/17 03:43 Dose: 125 mls/hr Ceftriaxone Sodium (Rocephin) 1 gm in 50 mls @ 100 mls/hr IV Q12 [facility] Last Admin: 12/08/17 09:15 Dose: 100 mls/hr Levofloxacin (Levaquin Iv) 750 mg in 150 mls @ 100 mls/hr IV Q24 [facility] Last Admin: 12/08/17 10:13 Dose: 100 mls/hr Insulin Human Lispro (Humalog Kwikpen (Bkc)) 0 unit SC ACHS SILVA PRN Reason: Protocol Last Admin: 12/08/17 11:24 Dose: 2 u Magnesium Hydroxide (Milk Of Magnesia) 30 ml PO DAILY PRN PRN Reason: Constipation Ondansetron HCl (Zofran) 4 mg IV Q8H PRN PRN PRN Reason: NAUSEA Promethazine HCl (Phenergan) 12.5 mg IV Q6H PRN PRN PRN Reason: NAUSEA/VOMITING Sertraline HCl (Zoloft) 100 mg PO DAILY [facility] Last Admin: 12/08/17 09:30 Dose: 100 mg Sodium Chloride () 5 - 30 ml IV UD PRN PRN Reason: SALINE FLUSH Medical Necessity - Tobacco Use Smoking Status: Former smoker Tobacco Use: Non-smoker Assessment/Plan All Active Problems (Last Updated 09/16/17 @ 19:52 by Gilma Phelps) Severe sepsis (Acute) Pneumonia (Acute) Aortic stenosis, severe (Resolved) 1. Acute hypoxic and hypercapnic respiratory failure * Secondary to possible pneumonia, pleural effusions, sleep apnea. * Wean oxygen as tolerated * Pulmonary toilet * Pulmonary consult 2. Suspected pneumococcal pneumonia * Continue with Levaquin. DC Rocephin * Strep and Legionella antigens were negative 3. Severe sepsis * Present on admission * Secondary to pneumonia * Of the possibilities could be related with the hypoxia as to the etiology of lactic acidosis 4. Pleural effusions * Bibasilar * Check echocardiogram 5. Paroxysmal atrial fibrillation * Stable at this time * On aspirin 6. DVT prophylaxis with Lovenox Discussed with family at bedside Code Visit Inpatient E&M: [id number] Subs Hosp L2
[2017-12-08 16:36] LABS: Bedside Glucose 110 mg/dL (70-110)
[2017-12-08 23:10] LABS: Bedside Glucose 177 mg/dL (70-110)
[2017-12-09] VITALS (16 sets, daily range): BP systolic 129–150; BP diastolic 75–99; PULSE 99–109; RESP 12–26; TEMP 36.4–36.9; O2SAT 92–99
[2017-12-09 06:55] LABS: Bedside Glucose 67 mg/dL (70-110)
[2017-12-09] MEDS: Ipratropium/Albuterol Sulfate 3 ML AMPUL.NEB INHALATION ×4 (06:55→19:45)
[2017-12-09 07:23] LABS: Absolute Lymphocyte Count 0.52 X10^3/ul (0.83-4.51); Absolute Neutrophil Count 3.8 X10^3/uL (2.0-7.7); Basophil# 0.01 X10^3/uL; Basophil% 0.2 % (0-1); Eosinophil# 0.09 X10^3/uL; Eosinophils% 1.8 % (0-5); Hematocrit 33.7 % (40-54); Hemoglobin 10.6 g/dl (13.0-16.5); Lymphocyte # 0.52 X10^3/ul (4.0); Lymphocyte % 10.6 % (19-41); Mean Corp Hgb Conc 31.5 g/gl (32-36); Mean Corpuscular Hgb 28.3 pg (27.0-32.0); Mean Corpuscular Volume 90.1 fL (80-94); Mean Platelet Vol. 10.5 fl (6.2-12.0); Monocyte# 0.49 X10^3/uL; Neutrophil # 3.77 X10^3/uL (2.7-7.7); Neutrophil % 76.8 % (47-70); Platelet Count 150 K/mm3 (150-450); RBC Distribution Width CV 16.4 % (11.6-14.6); RBC Distribution Width SD 52.2 fl (35.1-43.9); Red Blood Count 3.74 M/mm3 (4.6-6.2); White Blood Count 4.9 K/mm3 (4.4-11.0)
[2017-12-09 07:24] LABS: POSITIVE COUNT NO; POSITIVE DIFFERENTIAL YES; POSITIVE MORPHOLOGY NO
[2017-12-09 07:25] LABS: Differential Indicated SCAN CRITERIA MET
[2017-12-09 07:34] LABS: Anion Gap 11 (5-15); BUN 25 mg/dL (7-18); Calcium,Total 8.2 mg/dL (8.5-10.1); Chloride 107 mmol/L (98-107); EST Glomerular Filtration Rate 77 mL/min (>60); Est Glom Filt Rate - Afr Amer 94 mL/min (>60); Estimated Creatinine Clearance 56.71 ml/min; Glucose 62 mg/dL (74-106); Sodium Level 143 mmol/L (136-145)
[2017-12-09 07:40] LABS: Bedside Glucose 100 mg/dL (70-110)
[2017-12-09] MEDS: levoFLOXacin IV 750 MG/150 ML BAG 100 MG IV (10:11)
[2017-12-09] MEDS: guaiFENesin 1,200 MG Tablet 1200 MG PO ×2 (10:12→22:13)
[2017-12-09] MEDS: Famotidine 20 MG Tablet PO ×2 (10:12→22:13)
[2017-12-09] MEDS: Enoxaparin 40 MG/0.4 ML Syringe SC (10:12)
[2017-12-09] MEDS: Cilostazol 50 MG Tablet 100 MG PO (10:12)
[2017-12-09] MEDS: Sertraline 100 MG Tablet PO (10:12)
[2017-12-09] MEDS: Aspirin E.C. 81 MG Tablet PO (10:12)
[2017-12-09] MEDS: 0.9% NaCl Peripheral Flush Adult/Peds IV (11:12)
[2017-12-09] MEDS: Insulin Lispro 100 UNIT/ML INSULN.PEN SC ×3 (11:12→22:12)
[2017-12-09 11:21] LABS: Bedside Glucose 150 mg/dL (70-110)
--- NOTE | 2017-12-09 11:22 | PCM.PN.HOSP ---
Patient Problems: Active and Suspected Problems (Last Updated 09/16/17 @ 19:52 by Gilma Phelps) Severe sepsis (Acute) Pneumonia (Acute) Subjective: coughing, non productive. Vitals/I&O's: Vital Signs Temp Pulse Resp BP Pulse Ox 36.9 C 99 20 H 129/75 H 95 12/09/17 10:00 12/09/17 10:00 12/09/17 10:00 12/09/17 10:00 12/09/17 10:00 Oxygen Flow Rate (L/min) 2 Oxygen Delivery Method Nasal Cannula Weight: 97.1 kg Body Mass Index (BMI) 32.8 Intake and Output for Last 24 Hours 12/07/17 12/08/17 12/09/17 23:59 23:59 23:59 Intake Total 3760 / 3760 457.8 / 457.8 Balance 3760 / 3760 457.8 / 457.8 General: Alert, No apparent distress HEENT: Atraumatic, Normocephalic Neck: No Nodes, Thyroid Normal Size and Texture Lungs: Diminished, - - bibasilar crackles. Cardiovascular: Regular rate, Regular Rhythm, Normal S1, Normal S2, No murmurs Abdomen: Bowel Sounds Present, Soft, Non Tender, Non-Distended, No Hepato-splenomegaly Extremities: No edema, No Calf Tenderness Skin: No rashes, No breakdown Psych/Mental Status: Normal Affect, Appropriate Microbiology Past 72 Hours 12/08/17 07:53 Sputum, Expectorated/Coughed Respiratory Culture - Preliminary 12/07/17 23:34 Mucosa - Nasopharyngeal Respiratory Panel (PCR) - Final 12/08/17 07:53 Urine, Clean Catch Streptococcus pneumoniae Antigen (M - Final 12/08/17 07:53 Urine, Clean Catch Legionella Antigen - Final Laboratory Results 12/08/17 11:21: POC Glucose 224 H 12/08/17 16:33: POC Glucose 110 12/08/17 22:05: POC Glucose 177 H 12/09/17 06:14: WBC 4.9, RBC 3.74 L, Hgb 10.6 L, Hct 33.7 L, MCV 90.1, MCH 28.3, MCHC 31.5 L, RDW 16.4 H, RDW Differential 52.2 H, Plt Count 150, MPV 10.5, Immature Gran % (Auto) 0.600, Neut % (Auto) 76.8 H, Lymph % (Auto) 10.6 L, [place] % (Auto) 10.0, Eos % (Auto) 1.8, Baso % (Auto) 0.2, Absolute Neuts (auto) 3.8, Absolute Lymphs (auto) 0.52 L, Total Counted Pending, Differential Comment COMMENT 12/09/17 06:14: Sodium 143, Potassium 4.0, Chloride 107, Carbon Dioxide 25.0, Anion Gap 11, BUN 25 H, Creatinine 1.00, Estim Creat Clear Calc 56.71, Est GFR (MDRD) Af Amer 94, Est GFR (MDRD) Non-Af 77, BUN/Creatinine Ratio 25.0 H, Glucose 62 L, Calcium 8.2 L 12/09/17 06:49: POC Glucose 67 L 12/09/17 07:34: POC Glucose 100 12/09/17 11:07: POC Glucose 150 H Current Medications Acetaminophen (Tylenol) 650 mg PO Q4H PRN PRN PRN Reason: FEVER Acetaminophen (Tylenol) 650 mg PO Q6H PRN PRN PRN Reason: Mild Pain (scale 0-3)/T>100.7 Al Hydroxide/Mg Hydroxide (Mylanta Ii) 30 ml PO Q6H PRN PRN PRN Reason: Gastric burning Albuterol Sulfate (Ventolin Aerosols) 2.5 mg INHALATION Q2H PRN PRN PRN Reason: SHORTNESS OF BREATH Albuterol/Ipratropium (Duoneb) 3 ml INHALATION Q4HWA.RT [facility] Last Admin: 12/09/17 10:26 Dose: 3 ml [facility] ([facility]) [facility] Last Admin: 12/09/17 10:12 Dose: 81 mg Cilostazol (Pletal) 100 mg PO DAILY [facility] Last Admin: 12/09/17 10:12 Dose: 100 mg Enoxaparin Sodium (Lovenox) 40 mg SC DAILY@1000 [facility] Last Admin: 12/09/17 10:12 Dose: 40 mg Famotidine (Pepcid) 20 mg PO BID [facility] Last Admin: 12/09/17 10:12 Dose: 20 mg Guaifenesin (Mucinex) 1,200 mg PO BID [facility] Last Admin: 12/09/17 10:12 Dose: 1,200 mg Levofloxacin (Levaquin Iv) 750 mg in 150 mls @ 100 mls/hr IV Q24 [facility] Last Admin: 12/09/17 10:11 Dose: 100 mls/hr Insulin Human Lispro (Humalog Kwikpen (Bkc)) 0 unit SC ACHS SILVA PRN Reason: Protocol Last Admin: 12/09/17 11:12 Dose: 1 u Magnesium Hydroxide (Milk Of Magnesia) 30 ml PO DAILY PRN PRN Reason: Constipation Methylprednisolone (Solu-Medrol) 40 mg IV Q8 [facility] Last Admin: 12/09/17 11:12 Dose: 40 mg Ondansetron HCl (Zofran) 4 mg IV Q8H PRN PRN PRN Reason: NAUSEA Promethazine HCl (Phenergan) 12.5 mg IV Q6H PRN PRN PRN Reason: NAUSEA/VOMITING Sertraline HCl (Zoloft) 100 mg PO DAILY [facility] Last Admin: 12/09/17 10:12 Dose: 100 mg Sodium Chloride () 5 - 30 ml IV UD PRN PRN Reason: SALINE FLUSH Last Admin: 12/09/17 11:12 Dose: 10 ml Medical Necessity - Tobacco Use Smoking Status: Former smoker Tobacco Use: Non-smoker Assessment/Plan All Active Problems (Last Updated 09/16/17 @ 19:52 by Gilma Phelps) Severe sepsis (Acute) Pneumonia (Acute) Aortic stenosis, severe (Resolved) 1. Acute hypoxic and hypercapnic respiratory failure Secondary to possible pneumonia, pleural effusions, sleep apnea. Wean oxygen as tolerated Pulmonary toilet Pulmonary consult started on methylprednisolone 2. Suspected pneumococcal pneumonia Continue with Levaquin. DC Rocephin Strep and Legionella antigens were negative sputum culture negative so far. 3. Severe sepsis Present on admission Secondary to pneumonia Of the possibilities could be related with the hypoxia as to the etiology of lactic acidosis 4. Pleural effusions Bibasilar Check echocardiogram 5. Paroxysmal atrial fibrillation Stable at this time On aspirin 6. DVT prophylaxis with Lovenox Discussed with at bedside Code Visit Inpatient E&M: [id number] [facility] Hosp L2
--- NOTE | 2017-12-09 11:46 | PCM.CONS.GEN ---
Problem List (1) Severe sepsis Status: Acute (2) Pneumonia Status: Acute Qualifiers: Pneumonia type: due to unspecified organism Laterality: left Lung location: upper lobe of lung Qualified Code(s): J18.1 - Lobar pneumonia, unspecified organism (3) Sick sinus syndrome Status: Chronic (4) CLEMENT (obstructive sleep apnea) Status: Chronic (5) Other secondary pulmonary hypertension Status: Chronic (6) Nonrheumatic mitral valve regurgitation Status: Chronic (7) Nonrheumatic aortic (valve) stenosis Status: Chronic (8) Nonrheumatic aortic (valve) insufficiency Status: Chronic (9) Carotid artery stenosis Status: Chronic Qualifiers: Laterality: unspecified laterality Qualified Code(s): I65.29 - Occlusion and stenosis of unspecified carotid artery (10) Chronic atrial fibrillation Status: Chronic (11) Atherosclerotic heart disease of [place] coronary artery without angina pectoris Status: Chronic Qualifiers: [place] vs. transplanted heart: unspecified whether [place] or transplanted heart Qualified Code(s): I25.10 - Atherosclerotic heart disease of [place] coronary artery without angina pectoris (12) History of maze procedure Status: Chronic Comment: mitral valve repair and MAZE procedure 01/24/[address] Tolliver @ [facility] (13) Physical debility Status: Chronic (14) Hypokalemia Status: Chronic (15) Pancytopenia Status: Chronic (16) Status post mitral valve repair Status: Chronic Comment: mitral valve repair and MAZE procedure 01/24/[address] 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 Patient had reported shortness of breath over the previous 3 weeks, but had significant worsening over the 2 days prior to admission. On presentation to the emergency room, patient was noted to be 87% on room air with an elevated lactate at 3.8 and mild congestion on chest x-ray. CT angiogram showed no evidence of PE, but groundglass opacity of the left upper lobe suspicious for pneumonia, bilateral pleural effusions and mild ascites. Patient was found to be in A. fib with RVR and was given Cardizem, normal saline and antibiotics. Patient admitted to the general medical floor for further evaluation. While on the floor, patient did require BiPAP overnight. Patient did report subjective improvement in overall condition, but was requiring supplemental oxygen to maintain appropriate saturations. Patient reports cough without production. No fevers have been noted overnight, but patient did have some hypoglycemia this morning that was treated empirically. Patient did have a similar type presentation in November 2016 and recovered well without the need for supplemental oxygen. Patient did have pulmonary function test completed at her office in December 2016 showing no large airways obstructive ventilatory defect, but lung volumes at the lower limit of normal. (FVC 91%, FEV1 101%, TLC 88%, DLCO 77%). Unfortunately, patient was lost to follow-up and has not been seen since. Patient does have an extensive heart history and states that he follows with Dr. Ayoub. Patient denies any recent dietary indiscretions. Patient reports he has been compliant with his therapy as ordered. Review of systems otherwise negative ?10 systems. Past Medical History Past Medical History (Chronic Problems): Chronic Problems (Last Updated 09/16/17 @ 19:52 by Gilma Phelps) Sick sinus syndrome (Chronic) CLEMENT (obstructive sleep apnea) (Chronic) Congestive heart failure, unspecified (Chronic) Other secondary pulmonary hypertension (Chronic) Nonrheumatic mitral valve regurgitation (Chronic) Nonrheumatic aortic (valve) stenosis (Chronic) Nonrheumatic aortic (valve) insufficiency (Chronic) Carotid artery stenosis (Chronic) Chronic atrial fibrillation (Chronic) Atherosclerotic heart disease of [place] coronary artery without angina pectoris (Chronic) History of maze procedure (Chronic) mitral valve repair and MAZE procedure 01/24/[address] Tolliver @ [facility] UGIB (upper gastrointestinal bleed) (Chronic) Duodenal ulcer (Chronic) Physical debility (Chronic) Supratherapeutic INR (Chronic) Hypokalemia (Chronic) Pancytopenia (Chronic) Symptomatic anemia (Chronic) Sepsis (Chronic) Hyperlipidemia (Chronic) Status post placement of cardiac pacemaker (Chronic) Permanent pacemaker placement 02/02/16 @ [facility] Status post mitral valve repair (Chronic) mitral valve repair and MAZE procedure 01/24/[address] Tolliver @ [facility] 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) Aortic Valve Replacement w/ 23-mm Jay-Aragon pericardial valve Atrial fibrillation (Chronic) DM2 (diabetes mellitus, type 2) (Chronic) Medical History: Medical History (Last Updated 09/16/17 @ 19:52 by Gilma Phelps) Sick sinus syndrome (Chronic) I49.5 CLEMENT (obstructive sleep apnea) (Chronic) G47.33 Congestive heart failure, unspecified (Chronic) I50.9 Other secondary pulmonary hypertension (Chronic) I27.29 Nonrheumatic mitral valve regurgitation (Chronic) I34.0 Nonrheumatic aortic (valve) stenosis (Chronic) I35.0 Nonrheumatic aortic (valve) insufficiency (Chronic) I35.1 Carotid artery stenosis (Chronic) I65.29 Chronic atrial fibrillation (Chronic) I48.2 Atherosclerotic heart disease of [place] coronary artery without angina pectoris (Chronic) I25.10 Hyperlipidemia (Chronic) E78.5 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) Z95.3 Aortic Valve Replacement w/ 23-mm Jay-Aragon pericardial valve DM2 (diabetes mellitus, type 2) (Chronic) E11.9 Hypothyroidism E03.9 Allergies No Known Allergies Allergy (Verified 12/07/17 18:24) Home Medications: Ambulatory Orders Medication Instructions Recorded Glimepiride [Amaryl] 4 mg PO DAILY@0800 #30 tab 02/25/17 Metformin HCl [Glucophage] 500 mg PO BIDCM #30 tab 02/25/17 Pioglitazone [Actos] 30 mg PO DAILY@0800 #30 tab 02/25/17 aspirin 81 mg tablet,delayed 81 mg PO QDAY 07/24/17 release sertraline 100 mg tablet 100 mg PO QDAY 30 Days #30 tab 07/24/17 Cilostazol [Pletal] 100 mg PO DAILY 12/07/17 Surgical History: Surgical History (Last Reviewed 07/24/17 @ 09:26 by Abhishek Ayoub MD) History of maze procedure (Chronic) Z98.890 mitral valve repair and MAZE procedure 01/24/[address] Tolliver @ [facility] Status post placement of cardiac pacemaker (Chronic) Z95.0 Permanent pacemaker placement 02/02/16 @ [facility] Status post mitral valve repair (Chronic) Z98.890 mitral valve repair and MAZE procedure 01/24/[address] 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 Psychiatric History: No pertinent psych hx Lives: Spouse/ Significant Other Smoking Status: Former smoker Tobacco Use: Non-smoker Alcohol: None Drugs: None - *Family History Maternal Family History: Family History (Last Reviewed 07/24/17 @ 09:26 by Abhishek Ayoub MD) Mother Myocardial infarction CAD (coronary artery disease) Hypertension Sister Hypertension CVA (cerebral vascular accident) Son Diabetes History Items: Heart Disease, Hypertension Paternal Family History: Family History (Last Reviewed 07/24/17 @ 09:26 by Abhishek Ayoub MD) Mother Myocardial infarction CAD (coronary artery disease) Hypertension Sister Hypertension CVA (cerebral vascular accident) Son Diabetes History Items: No pertinent history Sibling Family History: Family History (Last Reviewed 07/24/17 @ 09:26 by Abhishek Ayoub MD) Mother Myocardial infarction CAD (coronary artery disease) Hypertension Sister Hypertension CVA (cerebral vascular accident) Son Diabetes History Items: Hypertension, Stroke Offspring Family History: Family History (Last Reviewed 07/24/17 @ 09:26 by Abhishek Ayoub MD) Mother Myocardial infarction CAD (coronary artery disease) Hypertension Sister Hypertension CVA (cerebral vascular accident) Son Diabetes History Items: Diabetes Review of Systems Comment: See HPI, otherwise negative ?10 systems. Patient Problems: Active and Suspected Problems (Last Updated 09/16/17 @ 19:52 by Gilma Phelps) Severe sepsis (Acute) Pneumonia (Acute) Objective: All imaging was personally reviewed. CT scan of the chest shows bilateral pleural effusions with groundglass opacities, particularly of the left upper lobe. Pulmonary function test was described in HPI. - Physical Exam General: Alert, Oriented x3, Cooperative, No apparent distress, - - Speaking in full sentences. HEENT: Atraumatic, PERRLA, EOMI, Normocephalic, - - No scleral icterus or injection noted. Oral: Moist Mucosa, No Gingival or Mucosal Lesions/ Ulcerations Neck: Supple, No JVD, No Nodes, Trachea Midline Lungs: No rhonchi, Rales - Left upper lobe, Wheezes - Sporadic, - - Increased AP diameter. Cardiovascular: Normal S1, Normal S2, No murmurs, Irregular Rate, No rub noted, No Gallop Abdomen: Bowel Sounds Present, Soft, Non Tender, Non-Distended, Obese Extremities: No clubbing, No cyanosis, Edema Skin: No rashes, No breakdown Musculoskeletal: No Tenderness to Palpation of Joints or Extremities Lymphatic: No Cervical, Supraclavicular, or Inguinal Adenopathy Neurological: Cranial nerves II-XII grossly intact, Neuro grossly intact, Motor Exam 5/5 strength throughout Psych/Mental Status: Alert and oriented to time, place, person, mood and affect Vital Signs Temp Pulse Resp BP Pulse Ox 36.9 C 108 H 20 H 129/75 H 95 12/09/17 10:00 12/09/17 11:04 12/09/17 10:00 12/09/17 10:00 12/09/17 10:00 Oxygen Flow Rate (L/min) 2 Oxygen Delivery Method Nasal Cannula Weight: 97.1 kg Body Mass Index (BMI) 32.8 Intake and Output for Last 24 Hours 12/07/17 12/08/17 12/09/17 23:59 23:59 23:59 Intake Total 65 / 65 3760 / 3760 457.8 / 457.8 Balance 65 / 65 3760 / 3760 457.8 / 457.8 Microbiology Past 72 Hours 12/08/17 07:53 Respiratory Culture - Preliminary Sputum, Expectorated/Coughed 12/07/17 23:34 Respiratory Panel (PCR) - Final Mucosa - Nasopharyngeal 12/08/17 07:53 Streptococcus pneumoniae Antigen (M - Final Urine, Clean Catch 12/08/17 07:53 Legionella Antigen - Final Urine, Clean Catch Laboratory Tests Past 24 Hrs 12/09/17 12/09/17 06:14 06:14 WBC 4.9 RBC 3.74 L Hgb 10.6 L Hct 33.7 L MCV 90.1 MCH 28.3 MCHC 31.5 L RDW 16.4 H RDW Differential 52.2 H Plt Count 150 MPV 10.5 Immature Gran % (Auto) 0.600 Neut % (Auto) 76.8 H Lymph % (Auto) 10.6 L [place] % (Auto) 10.0 Eos % (Auto) 1.8 Baso % (Auto) 0.2 Absolute Neuts (auto) 3.8 Absolute Lymphs (auto) 0.52 L Total Counted Pending Differential Comment COMMENT Sodium 143 Potassium 4.0 Chloride 107 Carbon Dioxide 25.0 Anion Gap 11 BUN 25 H Creatinine 1.00 Estim Creat Clear Calc 56.71 Est GFR (MDRD) Af Amer 94 Est GFR (MDRD) Non-Af 77 BUN/Creatinine Ratio 25.0 H Glucose 62 L Calcium 8.2 L POC Glucose 12/09/17 12/09/17 12/09/17 11:07 07:34 06:49 POC Glucose 150 H 100 67 L 12/08/17 12/08/17 22:05 16:33 POC Glucose 177 H 110 Assessment/Plan All Active Problems (Last Updated 09/16/17 @ 19:52 by Gilma Phelps) Severe sepsis (Acute) Pneumonia (Acute) Aortic stenosis, severe (Resolved) RECOMMENDATIONS: 1. Initiate steroid therapy empirically 2. Continue with antibiotics and bronchodilators 3. Wean oxygen as tolerated 4. Will need outpatient repeat CT scan to ensure resolution 5. Cannot exclude the need for bronchoscopy as an outpatient IMPRESSIONS: 1. Acute combined respiratory failure Likely multifactorial. Patient does have groundglass opacities noted of the left upper lobe. No environmental exposures are reported. This can be seen in hypersensitivity pneumonitis. Patient may also have acute pneumonia. Agree with antibiotics for 24-48 hours. Patient will also be complicated by significant cardiac history. Continue with pulmonary toileting. Patient will need a walking oximetry prior to discharge. Continue with BiPAP rescue as necessary during the day. 2. Lactic acidosis secondary to hypoxemia Patient with significant improvement following supplemental oxygen therapy. Patient does have an echocardiogram pending at this time. Patient did have some lower blood sugars this morning, but incremented appropriately. 3. Bilateral pleural effusion secondary to acute on chronic congestive heart failure/paroxysmal A. fib Patient to have an echocardiogram later today for quantification and clarification of heart function. Patient does have a history of aortic valve and mitral valve disease. Clinical suspicion for secondary pulmonary hypertension. Continue to wean oxygen as tolerated. Would not be opposed to mild diuretic therapy, but defer to hospitalist. Rate is relatively controlled at this time. 4. Diabetes mellitus type 2/hyperlipidemia/hypothyroidism/carotid artery stenosis/history of CVA/sick sinus syndrome/advanced age Complicates care, management, recovery and prognosis. Okay to continue with baseline medications. May require supplemental insulin therapy given the need for steroids. Code Visit Inpatient E&M: 79514 Init Hosp L3
--- NOTE | 2017-12-09 11:54 | CON.PCM_ITS ---
Problem List (1) Severe sepsis Status: Acute (2) Pneumonia Status: Acute Qualifiers: Pneumonia type: due to unspecified organism Laterality: left Lung location: upper lobe of lung Qualified Code(s): J18.1 - Lobar pneumonia, unspecified organism (3) Sick sinus syndrome Status: Chronic (4) CLEMENT (obstructive sleep apnea) Status: Chronic (5) Other secondary pulmonary hypertension Status: Chronic (6) Nonrheumatic mitral valve regurgitation Status: Chronic (7) Nonrheumatic aortic (valve) stenosis Status: Chronic (8) Nonrheumatic aortic (valve) insufficiency Status: Chronic (9) Carotid artery stenosis Status: Chronic Qualifiers: Laterality: unspecified laterality Qualified Code(s): I65.29 - Occlusion and stenosis of unspecified carotid artery (10) Chronic atrial fibrillation Status: Chronic (11) Atherosclerotic heart disease of [place] coronary artery without angina pectoris Status: Chronic Qualifiers: [place] vs. transplanted heart: unspecified whether [place] or transplanted heart Qualified Code(s): I25.10 - Atherosclerotic heart disease of [place] coronary artery without angina pectoris (12) History of maze procedure Status: Chronic Comment: mitral valve repair and MAZE procedure 01/24/[address] Tolliver @ [facility] (13) Physical debility Status: Chronic (14) Hypokalemia Status: Chronic (15) Pancytopenia Status: Chronic (16) Status post mitral valve repair Status: Chronic Comment: mitral valve repair and MAZE procedure 01/24/[address] 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 on December 07, 2017 secondary to progressive shortness of breath. Patient had reported shortness of breath over the previous 3 weeks, but had significant worsening over the 2 days prior to admission. On presentation to the emergency room, patient was noted to be 87% on room air with an elevated lactate at 3.8 and mild congestion on chest x-ray. CT angiogram showed no evidence of PE, but groundglass opacity of the left upper lobe suspicious for pneumonia, bilateral pleural effusions and mild ascites. Patient was found to be in A. fib with RVR and was given Cardizem, normal saline and antibiotics. Patient admitted to the general medical floor for further evaluation. While on the floor, patient did require BiPAP overnight. Patient did report subjective improvement in overall condition, but was requiring supplemental oxygen to maintain appropriate saturations. Patient reports cough without production. No fevers have been noted overnight, but patient did have some hypoglycemia this morning that was treated empirically. Patient did have a similar type presentation in November 2016 and recovered well without the need for supplemental oxygen. Patient did have pulmonary function test completed at her office in December 2016 showing no large airways obstructive ventilatory defect, but lung volumes at the lower limit of normal. (FVC 91%, FEV1 101%, TLC 88%, DLCO 77%). Unfortunately, patient was lost to follow-up and has not been seen since. Patient does have an extensive heart history and states that he follows with Dr. Ayoub. Patient denies any recent dietary indiscretions. Patient reports he has been compliant with his therapy as ordered. Review of systems otherwise negative ?10 systems. Past Medical History Past Medical History (Chronic Problems): Chronic Problems (Last Updated 09/16/17 @ 19:52 by Gilma Phelps) Sick sinus syndrome (Chronic) CLEMNET (obstructive sleep apnea) (Chronic) Congestive heart failure, unspecified (Chronic) Other secondary pulmonary hypertension (Chronic) Nonrheumatic mitral valve regurgitation (Chronic) Nonrheumatic aortic (valve) stenosis (Chronic) Nonrheumatic aortic (valve) insufficiency (Chronic) Carotid artery stenosis (Chronic) Chronic atrial fibrillation (Chronic) Atherosclerotic heart disease of [place] coronary artery without angina pectoris (Chronic) History of maze procedure (Chronic) mitral valve repair and MAZE procedure 01/24/[address] Tolliver @ [facility] UGIB (upper gastrointestinal bleed) (Chronic) Duodenal ulcer (Chronic) Physical debility (Chronic) Supratherapeutic INR (Chronic) Hypokalemia (Chronic) Pancytopenia (Chronic) Symptomatic anemia (Chronic) Sepsis (Chronic) Hyperlipidemia (Chronic) Status post placement of cardiac pacemaker (Chronic) Permanent pacemaker placement 02/02/16 @ [facility] Status post mitral valve repair (Chronic) mitral valve repair and MAZE procedure 01/24/[address] Tolliver @ [facility] 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) Aortic Valve Replacement w/ 23-mm Jay-Aragon pericardial valve Atrial fibrillation (Chronic) DM2 (diabetes mellitus, type 2) (Chronic) Medical History: Medical History (Last Updated 09/16/17 @ 19:52 by Gilma Phelps) Sick sinus syndrome (Chronic) I49.5 CLEMENT (obstructive sleep apnea) (Chronic) G47.33 Congestive heart failure, unspecified (Chronic) I50.9 Other secondary pulmonary hypertension (Chronic) I27.29 Nonrheumatic mitral valve regurgitation (Chronic) I34.0 Nonrheumatic aortic (valve) stenosis (Chronic) I35.0 Nonrheumatic aortic (valve) insufficiency (Chronic) I35.1 Carotid artery stenosis (Chronic) I65.29 Chronic atrial fibrillation (Chronic) I48.2 Atherosclerotic heart disease of [place] coronary artery without angina pectoris (Chronic) I25.10 Hyperlipidemia (Chronic) E78.5 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) Z95.3 Aortic Valve Replacement w/ 23-mm Jay-Aragon pericardial valve DM2 (diabetes mellitus, type 2) (Chronic) E11.9 Hypothyroidism E03.9 Allergies No Known Allergies Allergy (Verified 12/07/17 18:24) Home Medications: Ambulatory Orders Medication Instructions Recorded Glimepiride [Amaryl] 4 mg PO DAILY@0800 #30 tab 02/25/17 Metformin HCl [Glucophage] 500 mg PO BIDCM #30 tab 02/25/17 Pioglitazone [Actos] 30 mg PO DAILY@0800 #30 tab 02/25/17 aspirin 81 mg tablet,delayed 81 mg PO QDAY 07/24/17 release sertraline 100 mg tablet 100 mg PO QDAY 30 Days #30 tab 07/24/17 Cilostazol [Pletal] 100 mg PO DAILY 12/07/17 Surgical History: Surgical History (Last Reviewed 07/24/17 @ 09:26 by Abhishek Ayoub MD) History of maze procedure (Chronic) Z98.890 mitral valve repair and MAZE procedure 01/24/[address] Tolliver @ [facility] Status post placement of cardiac pacemaker (Chronic) Z95.0 Permanent pacemaker placement 02/02/16 @ [facility] Status post mitral valve repair (Chronic) Z98.890 mitral valve repair and MAZE procedure 01/24/[address] 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 Psychiatric History: No pertinent psych hx Lives: Spouse/ Significant Other Smoking Status: Former smoker Tobacco Use: Non-smoker Alcohol: None Drugs: None - *Family History Maternal Family History: Family History (Last Reviewed 07/24/17 @ 09:26 by Abhishek Ayoub MD) Mother Myocardial infarction CAD (coronary artery disease) Hypertension Sister Hypertension CVA (cerebral vascular accident) Son Diabetes History Items: Heart Disease, Hypertension Paternal Family History: Family History (Last Reviewed 07/24/17 @ 09:26 by Abhishek Ayoub MD) Mother Myocardial infarction CAD (coronary artery disease) Hypertension Sister Hypertension CVA (cerebral vascular accident) Son Diabetes History Items: No pertinent history Sibling Family History: Family History (Last Reviewed 07/24/17 @ 09:26 by Abhishek Ayoub MD) Mother Myocardial infarction CAD (coronary artery disease) Hypertension Sister Hypertension CVA (cerebral vascular accident) Son Diabetes History Items: Hypertension, Stroke Offspring Family History: Family History (Last Reviewed 07/24/17 @ 09:26 by Abhishek Ayoub MD) Mother Myocardial infarction CAD (coronary artery disease) Hypertension Sister Hypertension CVA (cerebral vascular accident) Son Diabetes History Items: Diabetes Review of Systems Comment: See HPI, otherwise negative ?10 systems. Patient Problems: Active and Suspected Problems (Last Updated 09/16/17 @ 19:52 by Gilma Phelps) Severe sepsis (Acute) Pneumonia (Acute) Objective: All imaging was personally reviewed. CT scan of the chest shows bilateral pleural effusions with groundglass opacities, particularly of the left upper lobe. Pulmonary function test was described in HPI. - Physical Exam General: Alert, Oriented x3, Cooperative, No apparent distress, - - Speaking in full sentences. HEENT: Atraumatic, PERRLA, EOMI, Normocephalic, - - No scleral icterus or injection noted. Oral: Moist Mucosa, No Gingival or Mucosal Lesions/ Ulcerations Neck: Supple, No JVD, No Nodes, Trachea Midline Lungs: No rhonchi, Rales - Left upper lobe, Wheezes - Sporadic, - - Increased AP diameter. Cardiovascular: Normal S1, Normal S2, No murmurs, Irregular Rate, No rub noted, No Gallop Abdomen: Bowel Sounds Present, Soft, Non Tender, Non-Distended, Obese Extremities: No clubbing, No cyanosis, Edema Skin: No rashes, No breakdown Musculoskeletal: No Tenderness to Palpation of Joints or Extremities Lymphatic: No Cervical, Supraclavicular, or Inguinal Adenopathy Neurological: Cranial nerves II-XII grossly intact, Neuro grossly intact, Motor Exam 5/5 strength throughout Psych/Mental Status: Alert and oriented to time, place, person, mood and affect Vital Signs Temp Pulse Resp BP Pulse Ox 36.9 C 108 H 20 H 129/75 H 95 12/09/17 10:00 12/09/17 11:04 12/09/17 10:00 12/09/17 10:00 12/09/17 10:00 Oxygen Flow Rate (L/min) 2 Oxygen Delivery Method Nasal Cannula Weight: 97.1 kg Body Mass Index (BMI) 32.8 Intake and Output for Last 24 Hours 12/07/17 12/08/17 12/09/17 23:59 23:59 23:59 Intake Total 65 / 65 3760 / 3760 457.8 / 457.8 Balance 65 / 65 3760 / 3760 457.8 / 457.8 Microbiology Past 72 Hours 12/08/17 07:53 Respiratory Culture - Preliminary Sputum, Expectorated/Coughed 12/07/17 23:34 Respiratory Panel (PCR) - Final Mucosa - Nasopharyngeal 12/08/17 07:53 Streptococcus pneumoniae Antigen (M - Final Urine, Clean Catch 12/08/17 07:53 Legionella Antigen - Final Urine, Clean Catch Laboratory Tests Past 24 Hrs 12/09/17 12/09/17 06:14 06:14 WBC 4.9 RBC 3.74 L Hgb 10.6 L Hct 33.7 L MCV 90.1 MCH 28.3 MCHC 31.5 L RDW 16.4 H RDW Differential 52.2 H Plt Count 150 MPV 10.5 Immature Gran % (Auto) 0.600 Neut % (Auto) 76.8 H Lymph % (Auto) 10.6 L [place] % (Auto) 10.0 Eos % (Auto) 1.8 Baso % (Auto) 0.2 Absolute Neuts (auto) 3.8 Absolute Lymphs (auto) 0.52 L Total Counted Pending Differential Comment COMMENT Sodium 143 Potassium 4.0 Chloride 107 Carbon Dioxide 25.0 Anion Gap 11 BUN 25 H Creatinine 1.00 Estim Creat Clear Calc 56.71 Est GFR (MDRD) Af Amer 94 Est GFR (MDRD) Non-Af 77 BUN/Creatinine Ratio 25.0 H Glucose 62 L Calcium 8.2 L POC Glucose 12/09/17 12/09/17 12/09/17 11:07 07:34 06:49 POC Glucose 150 H 100 67 L 12/08/17 12/08/17 22:05 16:33 POC Glucose 177 H 110 Assessment/Plan All Active Problems (Last Updated 09/16/17 @ 19:52 by Gilma Phelps) Severe sepsis (Acute) Pneumonia (Acute) Aortic stenosis, severe (Resolved) RECOMMENDATIONS: 1. Initiate steroid therapy empirically 2. Continue with antibiotics and bronchodilators 3. Wean oxygen as tolerated 4. Will need outpatient repeat CT scan to ensure resolution 5. Cannot exclude the need for bronchoscopy as an outpatient IMPRESSIONS: 1. Acute combined respiratory failure Likely multifactorial. Patient does have groundglass opacities noted of the left upper lobe. No environmental exposures are reported. This can be seen in hypersensitivity pneumonitis. Patient may also have acute pneumonia. Agree with antibiotics for 24-48 hours. Patient will also be complicated by significant cardiac history. Continue with pulmonary toileting. Patient will need a walking oximetry prior to discharge. Continue with BiPAP rescue as necessary during the day. 2. Lactic acidosis secondary to hypoxemia Patient with significant improvement following supplemental oxygen therapy. Patient does have an echocardiogram pending at this time. Patient did have some lower blood sugars this morning, but incremented appropriately. 3. Bilateral pleural effusion secondary to acute on chronic congestive heart failure/paroxysmal A. fib Patient to have an echocardiogram later today for quantification and clarification of heart function. Patient does have a history of aortic valve and mitral valve disease. Clinical suspicion for secondary pulmonary hypertension. Continue to wean oxygen as tolerated. Would not be opposed to mild diuretic therapy, but defer to hospitalist. Rate is relatively controlled at this time. 4. Diabetes mellitus type 2/hyperlipidemia/hypothyroidism/carotid artery stenosis/history of CVA/sick sinus syndrome/advanced age Complicates care, management, recovery and prognosis. Okay to continue with baseline medications. May require supplemental insulin therapy given the need for steroids. Code Visit Inpatient E&M: 42393 Init Hosp L3
[2017-12-09 16:21] LABS: Bedside Glucose 290 mg/dL (70-110)
[2017-12-09] MEDS: Furosemide 40 MG Tablet PO (17:35)
[2017-12-09 22:21] LABS: Bedside Glucose 268 mg/dL (70-110)
[2017-12-10] VITALS (20 sets, daily range): BP systolic 118–158; BP diastolic 77–117; PULSE 74–114; RESP 12–24; TEMP 36–36.9; O2SAT 92–96
--- NOTE | 2017-12-10 00:51 | NURSING ---
At this time (0015) this RN is taking over patient care
[2017-12-10] MEDS: 0.9% NaCl Peripheral Flush Adult/Peds IV (05:45)
[2017-12-10 06:56] LABS: Bedside Glucose 240 mg/dL (70-110)
[2017-12-10 07:02] LABS: Anion Gap 10 (5-15); BUN 24 mg/dL (7-18); BUN/Creat Ratio 25.7 RATIO (10-20); Calcium,Total 8.5 mg/dL (8.5-10.1); Chloride 104 mmol/L (98-107); Creatinine, Serum 0.93 mg/dL (0.70-1.30); EST Glomerular Filtration Rate 84 mL/min (>60); Est Glom Filt Rate - Afr Amer 101 mL/min (>60); Estimated Creatinine Clearance 60.98 ml/min; Glucose 240 mg/dL (74-106); Potassium 4.7 mmol/L (3.5-5.1); Sodium Level 138 mmol/L (136-145)
[2017-12-10] MEDS: Ipratropium/Albuterol Sulfate 3 ML AMPUL.NEB INHALATION ×4 (07:06→18:57)
[2017-12-10 07:35] LABS: Bedside Glucose 58 mg/dL (70-110)
[2017-12-10 07:35] LABS: Bedside Glucose 66 mg/dL (70-110)
[2017-12-10] MEDS: Insulin Lispro 100 UNIT/ML INSULN.PEN SC ×4 (08:24→22:10)
--- NOTE | 2017-12-10 08:27 | PCM.PROGNOTE ---
Patient Problems: Active and Suspected Problems (Last Updated 09/16/17 @ 19:52 by Gilma Phelps) Severe sepsis (Acute) Pneumonia (Acute) Subjective: Patient feels subjectively improved compared to previous. No fever was reported overnight. Patient did use his CPAP with sleep and has been on 2 L nasal cannula during the day. Patient's blood sugars have trended up. - Physical Exam General: Alert, Oriented x3, Cooperative, No apparent distress, - - Speaking in full sentences. HEENT: Atraumatic, PERRLA, EOMI, Normocephalic, - - No scleral icterus or injection noted. Oral: Moist Mucosa, No Gingival or Mucosal Lesions/ Ulcerations Neck: Supple, No JVD, No Nodes, Trachea Midline Lungs: No rhonchi, No rales, Diminished, Wheezes - Improved from previous, - - Symmetric expansion. Cardiovascular: Normal S1, Normal S2, No murmurs, Irregular Rate, No rub noted, No Gallop Abdomen: Bowel Sounds Present, Soft, Non Tender, Non-Distended Extremities: No clubbing, No cyanosis, Capillary Refill Less than 3 Seconds, Edema - 1-2+ lower extremity Skin: No rashes, No breakdown Musculoskeletal: No Tenderness to Palpation of Joints or Extremities Lymphatic: No Cervical, Supraclavicular, or Inguinal Adenopathy Neurological: Cranial nerves II-XII grossly intact, Neuro grossly intact, Motor Exam 5/5 strength throughout Psych/Mental Status: Alert and oriented to time, place, person, mood and affect Vital Signs Temp Pulse Resp BP Pulse Ox 36.9 C 99 18 158/117 H 92 12/10/17 03:53 12/10/17 07:06 12/10/17 07:06 12/10/17 03:53 12/10/17 07:06 Oxygen Flow Rate (L/min) 2 Oxygen Delivery Method Nasal Cannula Weight: 97.3 kg Body Mass Index (BMI) 32.8 Intake and Output for Last 24 Hours 12/08/17 12/09/17 12/10/17 23:59 23:59 23:59 Intake Total 3760 / 3760 789.3 / 789.3 Output Total 500 / 500 Balance 3760 / 3760 289.3 / 289.3 Microbiology Past 72 Hours 12/08/17 07:53 Gram Stain - Final Sputum, Expectorated/Coughed Respiratory Culture - Final 12/07/17 23:34 Respiratory Panel (PCR) - Final Mucosa - Nasopharyngeal 12/08/17 07:53 Streptococcus pneumoniae Antigen (M - Final Urine, Clean Catch 12/08/17 07:53 Legionella Antigen - Final Urine, Clean Catch Laboratory Tests Past 24 Hrs 12/09/17 12/10/17 06:14 05:50 Total Counted Not Reportable Differential Comment COMMENT Sodium 138 Potassium 4.7 Chloride 104 Carbon Dioxide 24.0 Anion Gap 10 BUN 24 H Creatinine 0.93 Estim Creat Clear Calc 60.98 Est GFR (MDRD) Af Amer 101 Est GFR (MDRD) Non-Af 84 BUN/Creatinine Ratio 25.7 H Glucose 240 H Calcium 8.5 POC Glucose 12/10/17 12/09/17 12/09/17 06:48 22:10 15:58 POC Glucose 240 H 268 H 290 H 12/09/17 12/08/17 12/08/17 11:07 07:14 06:59 POC Glucose 150 H 66 L 58 L Medical Necessity - Tobacco Use Smoking Status: Former smoker Tobacco Use: Non-smoker Assessment/Plan All Active Problems (Last Updated 09/16/17 @ 19:52 by Gilma Phelps) Severe sepsis (Acute) Pneumonia (Acute) Aortic stenosis, severe (Resolved) RECOMMENDATIONS: 1. Transition to prednisone and complete a 5 day burst 2. Continue with antibiotics and bronchodilators 3. Wean oxygen as tolerated 4. Will need outpatient repeat CT scan to ensure resolution 5. Cannot exclude the need for bronchoscopy as an outpatient IMPRESSIONS: 1. Acute combined respiratory failure Likely multifactorial. Patient does have groundglass opacities noted of the left upper lobe. No environmental exposures are reported. This can be seen in hypersensitivity pneumonitis. Patient may also have acute pneumonia. Agree with antibiotics for 24-48 hours. Patient will also be complicated by significant cardiac history. Continue with pulmonary toileting. Patient will need a walking oximetry prior to discharge. Continue CPAP overnight with sleep. Patient will be transition to prednisone therapy to complete a 5 day course. 2. Lactic acidosis secondary to hypoxemia Patient with significant improvement following supplemental oxygen therapy. Patient did have some elevated blood sugars this morning, likely secondary to steroids. Patient will be initiated on Lantus therapy while on prednisone. 3. Bilateral pleural effusion secondary to acute on chronic systolic congestive heart failure/paroxysmal A. fib Cardiogram shows an EF of 40% with elevated RVSP of 45 mmHg. Patient does have a history of aortic valve and mitral valve disease. Clinical suspicion for secondary pulmonary hypertension. Continue to wean oxygen as tolerated. Would not be opposed to mild diuretic therapy, but defer to hospitalist. Rate is relatively controlled at this time. 4. Diabetes mellitus type 2/hyperlipidemia/hypothyroidism/carotid artery stenosis/history of CVA/sick sinus syndrome/advanced age Complicates care, management, recovery and prognosis. Okay to continue with baseline medications. May require supplemental insulin therapy given the need for steroids. Code Visit Inpatient E&M: 01129 Subs Hosp L2
[2017-12-10] MEDS: Aspirin E.C. 81 MG Tablet PO (10:58)
[2017-12-10] MEDS: levoFLOXacin IV 750 MG/150 ML BAG 100 MG IV (10:58)
[2017-12-10] MEDS: Furosemide 40 MG Tablet PO ×2 (10:58→17:59)
[2017-12-10] MEDS: Sertraline 100 MG Tablet PO (10:59)
[2017-12-10] MEDS: Cilostazol 50 MG Tablet 100 MG PO (10:59)
[2017-12-10] MEDS: Enoxaparin 40 MG/0.4 ML Syringe SC (10:59)
[2017-12-10] MEDS: guaiFENesin 1,200 MG Tablet 1200 MG PO ×2 (10:59→22:10)
[2017-12-10] MEDS: Famotidine 20 MG Tablet PO ×2 (10:59→22:10)
[2017-12-10] MEDS: predniSONE 20 MG Tablet 40 MG PO (11:00)
[2017-12-10 11:20] LABS: Bedside Glucose 358 mg/dL (70-110)
--- NOTE | 2017-12-10 14:24 | NURSING ---
Read and Reviewed SN documentation
--- NOTE | 2017-12-10 15:35 | PCM.PN.HOSP ---
Patient Problems: Active and Suspected Problems (Last Updated 09/16/17 @ 19:52 by Gilma Phelps) Severe sepsis (Acute) Pneumonia (Acute) Subjective: breathing better overall. Vitals/I&O's: Vital Signs Temp Pulse Resp BP Pulse Ox 36.0 C L 102 H 24 H 131/79 H 92 12/10/17 13:15 12/10/17 14:55 12/10/17 14:55 12/10/17 13:15 12/10/17 13:26 Oxygen Flow Rate (L/min) 2 Oxygen Delivery Method Room Air Weight: 97.3 kg Body Mass Index (BMI) 32.8 Intake and Output for Last 24 Hours 12/08/17 12/09/17 12/10/17 23:59 23:59 23:59 Intake Total 3760 / 3760 789.3 / 789.3 1407 / 1407 Output Total 500 / 500 525 / 525 Balance 3760 / 3760 289.3 / 289.3 882 / 882 General: Alert, No apparent distress HEENT: Atraumatic, Normocephalic Oral: Moist Mucosa, No Gingival or Mucosal Lesions/ Ulcerations Neck: No Nodes, Thyroid Normal Size and Texture Lungs: Diminished, - - bibasilar crackles. Cardiovascular: Regular rate, Regular Rhythm, Normal S1, Normal S2 Abdomen: Bowel Sounds Present, Soft, Non Tender, Non-Distended, No Hepato-splenomegaly Extremities: No Calf Tenderness, Edema Skin: No rashes, No breakdown Musculoskeletal: No Tenderness to Palpation of Joints or Extremities, No Muscle Wasting Psych/Mental Status: Normal Affect, Appropriate Microbiology Past 72 Hours 12/08/17 07:53 Sputum, Expectorated/Coughed Gram Stain - Final 12/08/17 07:53 Sputum, Expectorated/Coughed Respiratory Culture - Final 12/07/17 23:34 Mucosa - Nasopharyngeal Respiratory Panel (PCR) - Final 12/08/17 07:53 Urine, Clean Catch Streptococcus pneumoniae Antigen (M - Final 12/08/17 07:53 Urine, Clean Catch Legionella Antigen - Final Laboratory Results 12/08/17 06:59: POC Glucose 58 L 12/08/17 07:14: POC Glucose 66 L 12/09/17 15:58: POC Glucose 290 H 12/09/17 22:10: POC Glucose 268 H 12/10/17 05:50: Sodium 138, Potassium 4.7, Chloride 104, Carbon Dioxide 24.0, Anion Gap 10, BUN 24 H, Creatinine 0.93, Estim Creat Clear Calc 60.98, Est GFR (MDRD) Af Amer 101, Est GFR (MDRD) Non-Af 84, BUN/Creatinine Ratio 25.7 H, Glucose 240 H, Calcium 8.5 12/10/17 06:48: POC Glucose 240 H 12/10/17 11:17: POC Glucose 358 H Current Medications Acetaminophen (Tylenol) 650 mg PO Q4H PRN PRN PRN Reason: FEVER Acetaminophen (Tylenol) 650 mg PO Q6H PRN PRN PRN Reason: Mild Pain (scale 0-3)/T>100.7 Al Hydroxide/Mg Hydroxide (Mylanta Ii) 30 ml PO Q6H PRN PRN PRN Reason: Gastric burning Albuterol Sulfate (Ventolin Aerosols) 2.5 mg INHALATION Q2H PRN PRN PRN Reason: SHORTNESS OF BREATH Albuterol/Ipratropium (Duoneb) 3 ml INHALATION Q4HWA.RT [facility] Last Admin: 12/10/17 14:54 Dose: 3 ml Aspirin (Ecotrin) 81 mg PO DAILYCM [facility] Last Admin: 12/10/17 10:58 Dose: 81 mg Cilostazol (Pletal) 100 mg PO DAILY [facility] Last Admin: 12/10/17 10:59 Dose: 100 mg Enoxaparin Sodium (Lovenox) 40 mg SC DAILY@1000 [facility] Last Admin: 12/10/17 10:59 Dose: 40 mg Famotidine (Pepcid) 20 mg PO BID [facility] Last Admin: 12/10/17 10:59 Dose: 20 mg Furosemide (Lasix) 40 mg PO BID@1000,1800 [facility] Last Admin: 12/10/17 10:58 Dose: 40 mg Guaifenesin (Mucinex) 1,200 mg PO BID [facility] Last Admin: 12/10/17 10:59 Dose: 1,200 mg Levofloxacin (Levaquin Iv) 750 mg in 150 mls @ 100 mls/hr IV Q24 [facility] Last Admin: 12/10/17 10:58 Dose: 100 mls/hr Insulin Glargine (Lantus (Bkc)) 10 units SC DAILY [facility] Last Admin: 12/10/17 12:27 Dose: 10 u Insulin Human Lispro (Humalog Kwikpen (Bkc)) 0 unit SC ACHS [facility] PRN Reason: Protocol Last Admin: 12/10/17 11:17 Dose: 6 u Magnesium Hydroxide (Milk Of Magnesia) 30 ml PO DAILY PRN PRN Reason: Constipation Ondansetron HCl (Zofran) 4 mg IV Q8H PRN PRN PRN Reason: NAUSEA Prednisone () 40 mg PO DAILY@0800 [facility] Stop: 12/13/17 08:01 Last Admin: 12/10/17 11:00 Dose: 40 mg Promethazine HCl (Phenergan) 12.5 mg IV Q6H PRN PRN PRN Reason: NAUSEA/VOMITING Sertraline HCl (Zoloft) 100 mg PO DAILY [facility] Last Admin: 12/10/17 10:59 Dose: 100 mg Sodium Chloride () 5 - 30 ml IV UD PRN PRN Reason: SALINE FLUSH Last Admin: 12/10/17 05:45 Dose: 10 ml Medical Necessity - Tobacco Use Smoking Status: Former smoker Tobacco Use: Non-smoker Assessment/Plan All Active Problems (Last Updated 09/16/17 @ 19:52 by Gilma Phelps) Severe sepsis (Acute) Pneumonia (Acute) Aortic stenosis, severe (Resolved) 1. Acute hypoxic and hypercapnic respiratory failure Secondary to possible pneumonia, pleural effusions, sleep apnea and CHF Wean oxygen as tolerated Pulmonary toilet Pulmonary consult transitioned to prednisone 2. Suspected pneumococcal pneumonia Continue with Levaquin. DC Rocephin Strep and Legionella antigens were negative sputum culture negative so far. outpt CT eval for resolution. 3. Severe sepsis Present on admission Secondary to pneumonia Of the possibilities could be related with the hypoxia as to the etiology of lactic acidosis 4. Acute HFrEF EF 40%, down from 50% from 2016 continue IV lasix add ACEi follow up with Dr. Ayoub 5. Pleural effusions Bibasilar Likely due to CHF follow up CXR as outpt to eval for resolution 6. Paroxysmal atrial fibrillation Stable at this time On aspirin 7. DVT prophylaxis with Lovenox Discussed with at bedside Code Visit Inpatient E&M: 72366 Subs Hosp L2
[2017-12-10] MEDS: Lisinopril 10 MG Tablet PO (16:12)
[2017-12-10 18:11] LABS: Bedside Glucose 382 mg/dL (70-110)
[2017-12-10 22:20] LABS: Bedside Glucose 370 mg/dL (70-110)
[2017-12-11] VITALS (10 sets, daily range): BP systolic 117–145; BP diastolic 77–86; PULSE 85–107; RESP 12–20; TEMP 36.4–36.8; O2SAT 93–99
[2017-12-11] MEDS: Ipratropium/Albuterol Sulfate 3 ML AMPUL.NEB INHALATION ×2 (06:35→11:03)
[2017-12-11 06:42] LABS: Anion Gap 10 (5-15); BUN 25 mg/dL (7-18); BUN/Creat Ratio 27.8 RATIO (10-20); Calcium,Total 8.2 mg/dL (8.5-10.1); Chloride 104 mmol/L (98-107); EST Glomerular Filtration Rate 87 mL/min (>60); Est Glom Filt Rate - Afr Amer 106 mL/min (>60); Estimated Creatinine Clearance 63.01 ml/min; Glucose 182 mg/dL (74-106); Potassium 3.7 mmol/L (3.5-5.1); Sodium Level 138 mmol/L (136-145)
[2017-12-11 06:44] LABS: Absolute Lymphocyte Count 0.54 X10^3/ul (0.83-4.51); Absolute Neutrophil Count 5.4 X10^3/uL (2.0-7.7); Eosinophil# 0.01 X10^3/uL; Eosinophils% 0.2 % (0-5); Hematocrit 34.1 % (40-54); Lymphocyte # 0.54 X10^3/ul (4.0); Lymphocyte % 8.4 % (19-41); Mean Corp Hgb Conc 32.3 g/gl (32-36); Mean Corpuscular Hgb 28.5 pg (27.0-32.0); Mean Corpuscular Volume 88.3 fL (80-94); Monocyte# 0.47 X10^3/uL; Monocyte% 7.3 % (0-10); Neutrophil # 5.37 X10^3/uL (2.7-7.7); Neutrophil % 83.6 % (47-70); Platelet Count 158 K/mm3 (150-450); RBC Distribution Width SD 50.2 fl (35.1-43.9); Red Blood Count 3.86 M/mm3 (4.6-6.2); White Blood Count 6.4 K/mm3 (4.4-11.0)
[2017-12-11 06:49] LABS: Differential Indicated SCAN CRITERIA MET; POSITIVE COUNT NO; POSITIVE DIFFERENTIAL YES; POSITIVE MORPHOLOGY NO
[2017-12-11 07:00] LABS: Bedside Glucose 159 mg/dL (70-110)
[2017-12-11] MEDS: Aspirin E.C. 81 MG Tablet PO (07:59)
[2017-12-11] MEDS: Insulin Lispro 100 UNIT/ML INSULN.PEN SC ×2 (07:59→11:15)
[2017-12-11] MEDS: predniSONE 20 MG Tablet 40 MG PO (07:59)
[2017-12-11 08:10] LABS: Differential Comment SCANNED
[2017-12-11] MEDS: Lisinopril 10 MG Tablet PO (10:09)
[2017-12-11] MEDS: Famotidine 20 MG Tablet PO (10:09)
[2017-12-11] MEDS: Sertraline 100 MG Tablet PO (10:10)
[2017-12-11] MEDS: guaiFENesin 1,200 MG Tablet 1200 MG PO (10:10)
[2017-12-11] MEDS: Furosemide 40 MG Tablet PO (10:10)
[2017-12-11] MEDS: Cilostazol 50 MG Tablet 100 MG PO (10:10)
[2017-12-11] MEDS: Enoxaparin 40 MG/0.4 ML Syringe SC (10:11)
[2017-12-11] MEDS: levoFLOXacin IV 750 MG/150 ML BAG 100 MG IV (10:12)
--- NOTE | 2017-12-11 11:50 | PN_ITS ---
Patient Problems: Active and Suspected Problems (Last Updated 09/16/17 @ 19:52 by Gilma Phelps) Severe sepsis (Acute) Pneumonia (Acute) Subjective: Patient feels subjectively improved compared to previous. Patient reports little to no coughing. Patient was able to be weaned to room air this morning. Blood sugars have been high, but no fevers were noted overnight. Patient does report ability to ambulate to the bathroom without difficulty on room air. - Physical Exam General: Alert, Oriented x3, Cooperative, No apparent distress, - - Speaking in full sentences. HEENT: Atraumatic, PERRLA, EOMI, Normocephalic, - - No scleral icterus or injection noted. Oral: Moist Mucosa, No Gingival or Mucosal Lesions/ Ulcerations Neck: Supple, No JVD, No Nodes, Trachea Midline Lungs: No rhonchi, No wheeze, No rales, Diminished, - - Symmetric expansion. No dullness to percussion. Cardiovascular: Regular rate, Regular Rhythm, Normal S1, Normal S2, No murmurs, No rub noted, No Gallop Abdomen: Bowel Sounds Present, Soft, Non Tender, Non-Distended, Obese Extremities: No clubbing, No cyanosis, Capillary Refill Less than 3 Seconds, Edema - 2+ lower extremity Skin: No rashes, - - No change compared to previous Musculoskeletal: No Tenderness to Palpation of Joints or Extremities Lymphatic: No Cervical, Supraclavicular, or Inguinal Adenopathy Neurological: Cranial nerves II-XII grossly intact, Neuro grossly intact, Motor Exam 5/5 strength throughout Psych/Mental Status: Alert and oriented to time, place, person, mood and affect Vital Signs Temp Pulse Resp BP Pulse Ox 36.8 C 98 16 117/77 93 12/11/17 10:10 12/11/17 11:03 12/11/17 11:03 12/11/17 10:10 12/11/17 10:10 Oxygen Flow Rate (L/min) 2 Oxygen Delivery Method Room Air Weight: 97.8 kg Body Mass Index (BMI) 32.8 Intake and Output for Last 24 Hours 12/09/17 12/10/17 12/11/17 23:59 23:59 23:59 Intake Total 789.3 / 789.3 1407 / 1407 120 / 120 Output Total 500 / 500 1325 / 1325 500 / 500 Balance 289.3 / 289.3 82 / 82 -380 / -380 Microbiology Past 72 Hours 12/08/17 07:53 Gram Stain - Final Sputum, Expectorated/Coughed Respiratory Culture - Final 12/07/17 23:34 Respiratory Panel (PCR) - Final Mucosa - Nasopharyngeal 12/08/17 07:53 Streptococcus pneumoniae Antigen (M - Final Urine, Clean Catch 12/08/17 07:53 Legionella Antigen - Final Urine, Clean Catch Laboratory Tests Past 24 Hrs 12/11/17 12/11/17 05:40 05:40 WBC 6.4 RBC 3.86 L Hgb 11.0 L Hct 34.1 L MCV 88.3 MCH 28.5 MCHC 32.3 RDW 16.0 H RDW Differential 50.2 H Plt Count 158 MPV 11.0 Immature Gran % (Auto) 0.500 Neut % (Auto) 83.6 H Lymph % (Auto) 8.4 L [place] % (Auto) 7.3 Eos % (Auto) 0.2 Baso % (Auto) 0.0 Absolute Neuts (auto) 5.4 Absolute Lymphs (auto) 0.54 L Total Counted Not Reportable Differential Comment SCANNED Sodium 138 Potassium 3.7 Chloride 104 Carbon Dioxide 24.0 Anion Gap 10 BUN 25 H Creatinine 0.90 Estim Creat Clear Calc 63.01 Est GFR (MDRD) Af Amer 106 Est GFR (MDRD) Non-Af 87 BUN/Creatinine Ratio 27.8 H Glucose 182 H Calcium 8.2 L POC Glucose 12/11/17 12/10/17 12/10/17 06:57 22:08 17:56 POC Glucose 159 H 370 H 382 H Medical Necessity - Tobacco Use Smoking Status: Former smoker Tobacco Use: Non-smoker Assessment/Plan All Active Problems (Last Updated 09/16/17 @ 19:52 by Gilma Phelps) Severe sepsis (Acute) Pneumonia (Acute) Aortic stenosis, severe (Resolved) RECOMMENDATIONS: 1. Complete a 5 day burst of prednisone 2. Okay to transition to Levaquin p.o. and complete a seven-day course 3. Wean oxygen as tolerated 4. Will need outpatient repeat CT scan to ensure resolution 5. Cannot exclude the need for bronchoscopy as an outpatient 6. Okay to discharge if able to tolerate room air ambulation 7. 2-week follow-up with nurse practitioner in our office IMPRESSIONS: 1. Acute combined respiratory failure Likely multifactorial. Patient does have groundglass opacities noted of the left upper lobe. No environmental exposures are reported. This can be seen in hypersensitivity pneumonitis. Patient may also have acute pneumonia. Patient appears to be improving on current therapy. Will complete a 5-day burst of prednisone therapy for an asthma exacerbation. Patient can continue with Levaquin by mouth to complete a 7-day course. If patient is able to ambulate on room air without significant desaturation, patient can be discharged with follow-up in our office in 2 weeks. 2. Lactic acidosis secondary to hypoxemia Patient with significant improvement following supplemental oxygen therapy. Patient did have some elevated blood sugars this morning, likely secondary to steroids. Patient will be initiated on Lantus therapy while on prednisone. Patient may require discharge on subcutaneous insulin for the remaining prednisone course. 3. Bilateral pleural effusion secondary to acute on chronic systolic congestive heart failure/paroxysmal A. fib Cardiogram shows an EF of 40% with elevated RVSP of 45 mmHg. Patient does have a history of aortic valve and mitral valve disease. Clinical suspicion for secondary pulmonary hypertension. Continue to wean oxygen as tolerated. Would not be opposed to mild diuretic therapy, but defer to hospitalist. Rate is relatively controlled at this time. 4. Diabetes mellitus type 2/hyperlipidemia/hypothyroidism/carotid artery stenosis/history of CVA/sick sinus syndrome/advanced age Complicates care, management, recovery and prognosis. Okay to continue with baseline medications. May require supplemental insulin therapy given the need for steroids. Code Visit Inpatient E&M: 83647 Subs Hosp L2
--- NOTE | 2017-12-11 13:24 | PCM.PN.HOSP ---
Patient Problems: Active and Suspected Problems (Last Updated 09/16/17 @ 19:52 by Gilma Phelps) Severe sepsis (Acute) Pneumonia (Acute) Heart failure with reduced ejection fraction (Acute) Subjective: breathing better. Vitals/I&O's: Vital Signs Temp Pulse Resp BP Pulse Ox 36.8 C 98 16 117/77 93 12/11/17 10:10 12/11/17 11:03 12/11/17 11:03 12/11/17 10:10 12/11/17 12:57 Oxygen Flow Rate (L/min) 2 Oxygen Delivery Method Room Air Weight: 97.8 kg Body Mass Index (BMI) 32.8 Intake and Output for Last 24 Hours 12/09/17 12/10/17 12/11/17 23:59 23:59 23:59 Intake Total 789.3 / 789.3 1407 / 1407 752 / 752 Output Total 500 / 500 1325 / 1325 1800 / 1800 Balance 289.3 / 289.3 82 / 82 -1048 / -1048 General: Alert, No apparent distress HEENT: Atraumatic, Normocephalic Neck: No Nodes, Thyroid Normal Size and Texture Lungs: Clear to auscultation, Normal air movement, No rhonchi, No wheeze Cardiovascular: Regular rate, Regular Rhythm, Normal S1, Normal S2, No murmurs Abdomen: Bowel Sounds Present, Soft, Non Tender, Non-Distended, No Hepato-splenomegaly Extremities: No Calf Tenderness, Edema - 2+ Microbiology Past 72 Hours 12/08/17 07:53 Sputum, Expectorated/Coughed Gram Stain - Final 12/08/17 07:53 Sputum, Expectorated/Coughed Respiratory Culture - Final 12/07/17 23:34 Mucosa - Nasopharyngeal Respiratory Panel (PCR) - Final Laboratory Results 12/10/17 17:56: POC Glucose 382 H 12/10/17 22:08: POC Glucose 370 H 12/11/17 05:40: WBC 6.4, RBC 3.86 L, Hgb 11.0 L, Hct 34.1 L, MCV 88.3, MCH 28.5, MCHC 32.3, RDW 16.0 H, RDW Differential 50.2 H, Plt Count 158, MPV 11.0, Immature Gran % (Auto) 0.500, Neut % (Auto) 83.6 H, Lymph % (Auto) 8.4 L, [place] % (Auto) 7.3, Eos % (Auto) 0.2, Baso % (Auto) 0.0, Absolute Neuts (auto) 5.4, Absolute Lymphs (auto) 0.54 L, Total Counted Not Reportable, Differential Comment SCANNED 12/11/17 05:40: Sodium 138, Potassium 3.7, Chloride 104, Carbon Dioxide 24.0, Anion Gap 10, BUN 25 H, Creatinine 0.90, Estim Creat Clear Calc 63.01, Est GFR (MDRD) Af Amer 106, Est GFR (MDRD) Non-Af 87, BUN/Creatinine Ratio 27.8 H, Glucose 182 H, Calcium 8.2 L 12/11/17 06:57: POC Glucose 159 H Current Medications Acetaminophen (Tylenol) 650 mg PO Q4H PRN PRN PRN Reason: FEVER Acetaminophen (Tylenol) 650 mg PO Q6H PRN PRN PRN Reason: Mild Pain (scale 0-3)/T>100.7 Al Hydroxide/Mg Hydroxide (Mylanta Ii) 30 ml PO Q6H PRN PRN PRN Reason: Gastric burning Albuterol Sulfate (Ventolin Aerosols) 2.5 mg INHALATION Q2H PRN PRN PRN Reason: SHORTNESS OF BREATH Albuterol/Ipratropium (Duoneb) 3 ml INHALATION Q4HWA.RT [facility] Last Admin: 12/11/17 11:03 Dose: 3 ml [facility] Last Admin: 12/11/17 07:59 Dose: 81 mg Cilostazol (Pletal) 100 mg PO DAILY [facility] Last Admin: 12/11/17 10:10 Dose: 100 mg Enoxaparin Sodium (Lovenox) 40 mg SC DAILY@1000 [facility] Last Admin: 12/11/17 10:11 Dose: 40 mg Famotidine (Pepcid) 20 mg PO BID [facility] Last Admin: 12/11/17 10:09 Dose: 20 mg Furosemide (Lasix) 40 mg PO BID@1000,1800 [facility] Last Admin: 12/11/17 10:10 Dose: 40 mg Guaifenesin (Mucinex) 1,200 mg PO BID [facility] Last Admin: 12/11/17 10:10 Dose: 1,200 mg Levofloxacin (Levaquin Iv) 750 mg in 150 mls @ 100 mls/hr IV Q24 [facility] Last Admin: 12/11/17 10:12 Dose: 100 mls/hr Insulin Glargine (Lantus (Bk)) 10 units SC DAILY [facility] Last Admin: 12/11/17 10:11 Dose: 10 u Insulin Human Lispro (Humalog Kwikpen (Bk)) 0 unit SC ACHS [facility] PRN Reason: Protocol Last Admin: 12/11/17 11:15 Dose: 3 u Lisinopril (Zestril) 10 mg PO DAILY [facility] Last Admin: 12/11/17 10:09 Dose: 10 mg Magnesium Hydroxide (Milk Of Magnesia) 30 ml PO DAILY PRN PRN Reason: Constipation Ondansetron HCl (Zofran) 4 mg IV Q8H PRN PRN PRN Reason: NAUSEA Prednisone () 40 mg PO DAILY@0800 [facility] Stop: 12/13/17 08:01 Last Admin: 12/11/17 07:59 Dose: 40 mg Promethazine HCl (Phenergan) 12.5 mg IV Q6H PRN PRN PRN Reason: NAUSEA/VOMITING Sertraline HCl (Zoloft) 100 mg PO DAILY [facility] Last Admin: 12/11/17 10:10 Dose: 100 mg Sodium Chloride () 5 - 30 ml IV UD PRN PRN Reason: SALINE FLUSH Last Admin: 12/10/17 05:45 Dose: 10 ml Medical Necessity - Tobacco Use Smoking Status: Former smoker Tobacco Use: Non-smoker Assessment/Plan All Active Problems (Last Updated 09/16/17 @ 19:52 by Gilma Phelps) Severe sepsis (Acute) Pneumonia (Acute) Heart failure with reduced ejection fraction (Acute) Aortic stenosis, severe (Resolved) 1. Acute hypoxic and hypercapnic respiratory failure improved Secondary to possible pneumonia, pleural effusions, sleep apnea and CHF Wean oxygen as tolerated Pulmonary toilet Pulmonary consult transitioned to prednisone 2. Suspected pneumococcal pneumonia Continue with Levaquin. DC Rocephin Strep and Legionella antigens were negative sputum culture negative so far. outpt CT eval for resolution. 3. Severe sepsis Present on admission Secondary to pneumonia Of the possibilities could be related with the hypoxia as to the etiology of lactic acidosis 4. Acute HFrEF EF 40%, down from 50% from 2016 change lasix to PO continue ACEi start coreg follow up with Dr. Ayoub 5. Pleural effusions Bibasilar Likely due to CHF follow up as outpt to eval for resolution 6. Paroxysmal atrial fibrillation Stable at this time On aspirin 7. DVT prophylaxis with Lovenox DC home Discussed with at bedside
--- NOTE | 2017-12-11 13:32 | PCM.DC ---
- Discharge Diagnoses Current Active Problems: Current Active and Chronic Problems (Last Updated 09/16/17 @ 19:52 by Gilma Phelps) Severe sepsis (Acute) Pneumonia (Acute) Heart failure with reduced ejection fraction (Acute) You will use the following diet at home:: Calorie/Carbohydrate Controlled (specify 1200, 1400, etc) - 1800 kcal/day, Fluid restricted (specify 2000 mls, 1500 mls) - 1500 cc/day Your food should be the consistency of: Regular Your liquids should be the consistency of: Regular/Thin Discharge Activity: Return to Normal Activity Call your doctor if you observe: Fever of 101 or Higher, Shortness of breath Additional Instructions: Daily weights. Notify physician if greater than 2 pounds in 1 day, or 3 pounds in 1 week. Allergies/Adverse Reactions: Allergies No Known Allergies Allergy (Verified 12/07/17 18:24) Medications to take at Discharge Glimepiride [Amaryl] 4 mg PO DAILY@0800 #30 tab 02/25/17 Metformin HCl [Glucophage] 500 mg PO BIDCM #30 tab 02/25/17 Pioglitazone [Actos] 30 mg PO DAILY@0800 #30 tab 02/25/17 aspirin 81 mg tablet,delayed release 81 mg PO QDAY 07/24/17 sertraline 100 mg tablet 100 mg PO QDAY 30 Days #30 tab 07/24/17 Cilostazol [Pletal] 100 mg PO DAILY 12/07/17 Albuterol Inhaler [Ventolin Hfa] 1 - 2 puff INHALATION Q4H PRN PRN #1 inhaler 12/11/17 Carvedilol [Coreg] 6.25 mg PO BID #60 tab 12/11/17 Furosemide [Lasix] 40 mg PO BID@1000,1800 #60 tab 12/11/17 Guaifenesin [Mucinex] 1,200 mg PO BID #10 tab 12/11/17 Lisinopril [Zestril] 10 mg PO DAILY #30 tab 12/11/17 Potassium Chloride [K-Dur] 10 meq PO DAILY #30 tab 12/11/17 Prednisone 4 tab PO DAILY #8 tab 12/11/17 levoFLOXacin tablet [Levaquin tablet] 750 mg PO DAILY #3 tab 12/11/17 The following prescriptions were given: Albuterol Inhaler [Ventolin Hfa] 1 - 2 puff INHALATION Q4H PRN PRN #1 inhaler PRN Reason: Shortness Of Breath Furosemide [Lasix] 40 mg PO BID@1000,1800 #60 tab levoFLOXacin tablet [Levaquin tablet] 750 mg PO DAILY #3 tab Lisinopril [Zestril] 10 mg PO DAILY #30 tab Potassium Chloride [K-Dur] 10 meq PO DAILY #30 tab Prednisone 4 tab PO DAILY #8 tab Carvedilol [Coreg] 6.25 mg PO BID #60 tab Guaifenesin [Mucinex] 1,200 mg PO BID #10 tab Orders to be completed after discharge: Basic Metabolic Profile (BMP) Location: Laboratory Primary Care Physician: Lei Funes DO [Primary Care Provider] - Test Results: Test results from this visit will be discussed in further detail at your follow-up appointment, if applicable. Please Follow Up With: Lei Funes DO Please Follow Up With: Abhishek Ayoub MD When: 12/17/17 Please Follow Up With: Daniel Phillips MD When: 2 weeks Proposed Discharge Date: 12/11/17
--- NOTE | 2017-12-11 13:35 | PCM.DC.SUM ---
Discharge Date and Diagnosis - Problem List Patient Problems: Active and Suspected Problems (Last Updated 09/16/17 @ 19:52 by Gilma Phelps) Heart failure with reduced ejection fraction (Acute) Severe sepsis (Acute) Pneumonia (Acute) Date of Admission: 12/07/17 Date of Discharge: 12/11/17 - Primary Discharge Diagnosis Active and Suspected Problems (Last Updated 09/16/17 @ 19:52 by Gilma Phelps) Heart failure with reduced ejection fraction (Acute) Severe sepsis (Acute) Pneumonia (Acute) - Secondary Discharge Diagnosis Chronic Problems (Last Updated 09/16/17 @ 19:52 by Gilma Phelps) Sick sinus syndrome (Chronic) CLEMENT (obstructive sleep apnea) (Chronic) Congestive heart failure, unspecified (Chronic) Other secondary pulmonary hypertension (Chronic) Nonrheumatic mitral valve regurgitation (Chronic) Nonrheumatic aortic (valve) stenosis (Chronic) Nonrheumatic aortic (valve) insufficiency (Chronic) Carotid artery stenosis (Chronic) Chronic atrial fibrillation (Chronic) 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 Tolliver @ [facility] UGIB (upper gastrointestinal bleed) (Chronic) Duodenal ulcer (Chronic) Physical debility (Chronic) Supratherapeutic INR (Chronic) Hypokalemia (Chronic) Pancytopenia (Chronic) Symptomatic anemia (Chronic) Sepsis (Chronic) Hyperlipidemia (Chronic) Status post placement of cardiac pacemaker (Chronic) Permanent pacemaker placement 02/02/16 @ [facility] Status post mitral valve repair (Chronic) mitral valve repair and MAZE procedure 01/24/[address] 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 Cardiac enlargement. Electronically Signed: Carmencita Le MD at 19:20 EDT Tel , Service support , Chest CTA 12/07/17 19:47 IMPRESSION: 1. No evidence of pulmonary embolus. 2. Mild mediastinal adenopathy, mildly increased. 3. Groundglass opacity in the left upper lobe. This may represent infection, interstitial pneumonia, less likely malignancy. Follow-up is advised. 4. Small pleural effusions. 5. Mild ascites. Electronically Signed: Carmencita Le MD at 20:52 EDT Tel , Service support , Operations: None Procedures: None Summary of Care Provided: The patient is a 77 year old M presents with shortness of breath. 1. Acute hypoxic and hypercapnic respiratory failure improved Secondary to possible pneumonia, pleural effusions, sleep apnea and CHF Wean oxygen as tolerated Pulmonary toilet Pulmonary consult transitioned to prednisone 2. Suspected pneumococcal pneumonia Continue with Levaquin. DC Rocephin Strep and Legionella antigens were negative sputum culture negative so far. outpt CT eval for resolution. 3. Severe sepsis Present on admission Secondary to pneumonia Of the possibilities could be related with the hypoxia as to the etiology of lactic acidosis 4. Acute HFrEF EF 40%, down from 50% from 2016 change lasix to PO continue ACEi start coreg follow up with Dr. Ayoub 5. Pleural effusions Bibasilar Likely due to CHF follow up as outpt to eval for resolution 6. Paroxysmal atrial fibrillation Stable at this time On aspirin [] Discharge Diet: 1800 Calorie Control Diet, 6 Cup Fluid Restriction, 2000 mg Sodium Diet Discharge Activity: Return to Normal Activity Call your doctor if you observe: Fever of 101 or Higher, Shortness of breath Home Medications: Medications to take at Discharge Glimepiride [Amaryl] 4 mg PO DAILY@0800 #30 tab 02/25/17 Metformin HCl [Glucophage] 500 mg PO BIDCM #30 tab 02/25/17 Pioglitazone [Actos] 30 mg PO DAILY@0800 #30 tab 02/25/17 aspirin 81 mg tablet,delayed release 81 mg PO QDAY 07/24/17 sertraline 100 mg tablet 100 mg PO QDAY 30 Days #30 tab 07/24/17 Cilostazol [Pletal] 100 mg PO DAILY 12/07/17 Albuterol Inhaler [Ventolin Hfa] 1 - 2 puff INHALATION Q4H PRN PRN #1 inhaler 12/11/17 Carvedilol [Coreg] 6.25 mg PO BID #60 tab 12/11/17 Furosemide [Lasix] 40 mg PO BID@1000,1800 #60 tab 12/11/17 Guaifenesin [Mucinex] 1,200 mg PO BID #10 tab 12/11/17 Lisinopril [Zestril] 10 mg PO DAILY #30 tab 12/11/17 Potassium Chloride [K-Dur] 10 meq PO DAILY #30 tab 12/11/17 Prednisone 4 tab PO DAILY #8 tab 12/11/17 levoFLOXacin tablet [Levaquin tablet] 750 mg PO DAILY #3 tab 12/11/17 Following Prescrptions Were Given to Patient: Albuterol Inhaler [Ventolin Hfa] 1 - 2 puff INHALATION Q4H PRN PRN #1 inhaler PRN Reason: Shortness Of Breath Furosemide [Lasix] 40 mg PO BID@1000,1800 #60 tab levoFLOXacin tablet [Levaquin tablet] 750 mg PO DAILY #3 tab Lisinopril [Zestril] 10 mg PO DAILY #30 tab Potassium Chloride [K-Dur] 10 meq PO DAILY #30 tab Prednisone 4 tab PO DAILY #8 tab Carvedilol [Coreg] 6.25 mg PO BID #60 tab Guaifenesin [Mucinex] 1,200 mg PO BID #10 tab Other Amb Orders: Basic Metabolic Profile (BMP) Location: Laboratory Primary Care Physician: Lei Funes DO [Primary Care Provider] - Please Follow Up With: Lei Funes DO Please Follow Up With: Abhishek Ayoub MD When: 12/17/17 Please Follow Up With: Daniel Phillips MD When: 2 weeks Disposition: Home Minutes spent on discharge:: 35 Patient Condition:: Fair Medical Necessity - Tobacco Use Smoking Status: Former smoker Tobacco Use: Non-smoker Meaningful Use Info Meaningful Use Diagnoses (Choose all that apply): CHF - CHF CLAUDIA/ARB ordered at discharge?: Yes Documented LVEF (%): 45 Code Visit Inpatient E&M: 27665 Disch Hosp
--- NOTE | 2017-12-11 13:39 | DS.PCM_ITS ---
Discharge Date and Diagnosis - Problem List Patient Problems: Active and Suspected Problems (Last Updated 09/16/17 @ 19:52 by Gilma Phelps) Heart failure with reduced ejection fraction (Acute) Severe sepsis (Acute) Pneumonia (Acute) Date of Admission: 12/07/17 Date of Discharge: 12/11/17 - Primary Discharge Diagnosis Active and Suspected Problems (Last Updated 09/16/17 @ 19:52 by Gilma Phelps) Heart failure with reduced ejection fraction (Acute) Severe sepsis (Acute) Pneumonia (Acute) - Secondary Discharge Diagnosis Chronic Problems (Last Updated 09/16/17 @ 19:52 by Gilma Phelps) Sick sinus syndrome (Chronic) CLEMENT (obstructive sleep apnea) (Chronic) Congestive heart failure, unspecified (Chronic) Other secondary pulmonary hypertension (Chronic) Nonrheumatic mitral valve regurgitation (Chronic) Nonrheumatic aortic (valve) stenosis (Chronic) Nonrheumatic aortic (valve) insufficiency (Chronic) Carotid artery stenosis (Chronic) Chronic atrial fibrillation (Chronic) 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 Tolliver @ [facility] UGIB (upper gastrointestinal bleed) (Chronic) Duodenal ulcer (Chronic) Physical debility (Chronic) Supratherapeutic INR (Chronic) Hypokalemia (Chronic) Pancytopenia (Chronic) Symptomatic anemia (Chronic) Sepsis (Chronic) Hyperlipidemia (Chronic) Status post placement of cardiac pacemaker (Chronic) Permanent pacemaker placement 02/02/16 @ [facility] Status post mitral valve repair (Chronic) mitral valve repair and MAZE procedure 01/24/[address] 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 Cardiac enlargement. Electronically Signed: Carmencita Le MD at 19:20 EDT Tel , Service support , Chest CTA 12/07/17 19:47 IMPRESSION: 1. No evidence of pulmonary embolus. 2. Mild mediastinal adenopathy, mildly increased. 3. Groundglass opacity in the left upper lobe. This may represent infection, interstitial pneumonia, less likely malignancy. Follow-up is advised. 4. Small pleural effusions. 5. Mild ascites. Electronically Signed: Carmencita Le MD at 20:52 EDT Tel , Service support , Operations: None Procedures: None Summary of Care Provided: The patient is a 77 year old M presents with shortness of breath. 1. Acute hypoxic and hypercapnic respiratory failure * improved * Secondary to possible pneumonia, pleural effusions, sleep apnea and CHF * Wean oxygen as tolerated * Pulmonary toilet * Pulmonary consult * transitioned to prednisone 2. Suspected pneumococcal pneumonia * Continue with Levaquin. DC Rocephin * Strep and Legionella antigens were negative * sputum culture negative so far. * outpt CT eval for resolution. 3. Severe sepsis * Present on admission * Secondary to pneumonia * Of the possibilities could be related with the hypoxia as to the etiology of lactic acidosis 4. Acute HFrEF * EF 40%, down from 50% from 2016 * change lasix to PO * continue ACEi * start coreg * follow up with Dr. Ayoub 5. Pleural effusions * Bibasilar * Likely due to CHF * follow up as outpt to eval for resolution 6. Paroxysmal atrial fibrillation * Stable at this time * On aspirin [] Discharge Diet: 1800 Calorie Control Diet, 6 Cup Fluid Restriction, 2000 mg Sodium Diet Discharge Activity: Return to Normal Activity Call your doctor if you observe: Fever of 101 or Higher, Shortness of breath Home Medications: Medications to take at Discharge Glimepiride [Amaryl] 4 mg PO DAILY@0800 #30 tab 02/25/17 Metformin HCl [Glucophage] 500 mg PO BIDCM #30 tab 02/25/17 Pioglitazone [Actos] 30 mg PO DAILY@0800 #30 tab 02/25/17 aspirin 81 mg tablet,delayed release 81 mg PO QDAY 07/24/17 sertraline 100 mg tablet 100 mg PO QDAY 30 Days #30 tab 07/24/17 Cilostazol [Pletal] 100 mg PO DAILY 12/07/17 Albuterol Inhaler [Ventolin Hfa] 1 - 2 puff INHALATION Q4H PRN PRN #1 inhaler Carvedilol [Coreg] 6.25 mg PO BID #60 tab 12/11/17 Furosemide [Lasix] 40 mg PO BID@1000,1800 #60 tab 12/11/17 Guaifenesin [Mucinex] 1,200 mg PO BID #10 tab 12/11/17 Lisinopril [Zestril] 10 mg PO DAILY #30 tab 12/11/17 Potassium Chloride [K-Dur] 10 meq PO DAILY #30 tab 12/11/17 Prednisone 4 tab PO DAILY #8 tab 12/11/17 levoFLOXacin tablet [Levaquin tablet] 750 mg PO DAILY #3 tab 12/11/17 Following Prescrptions Were Given to Patient: Albuterol Inhaler [Ventolin Hfa] 1 - 2 puff INHALATION Q4H PRN PRN #1 inhaler PRN Reason: Shortness Of Breath Furosemide [Lasix] 40 mg PO BID@1000,1800 #60 tab levoFLOXacin tablet [Levaquin tablet] 750 mg PO DAILY #3 tab Lisinopril [Zestril] 10 mg PO DAILY #30 tab Potassium Chloride [K-Dur] 10 meq PO DAILY #30 tab Prednisone 4 tab PO DAILY #8 tab Carvedilol [Coreg] 6.25 mg PO BID #60 tab Guaifenesin [Mucinex] 1,200 mg PO BID #10 tab Other Amb Orders: Basic Metabolic Profile (BMP) Location: Laboratory Primary Care Physician: Lei Funes DO [Primary Care Provider] - Please Follow Up With: Lei Funes DO Please Follow Up With: Abhishek Ayoub MD When: 12/17/17 Please Follow Up With: Daniel Phillips MD When: 2 weeks Disposition: Home Minutes spent on discharge:: 35 Patient Condition:: Fair Medical Necessity - Tobacco Use Smoking Status: Former smoker Tobacco Use: Non-smoker Meaningful Use Info Meaningful Use Diagnoses (Choose all that apply): CHF - CHF CLAUDIA/ARB ordered at discharge?: Yes Documented LVEF (%): 45 Code Visit Inpatient E&M: 67649 Disch Hosp
--- NOTE | 2017-12-11 14:11 | CASEMGMT ---
This RN MARISELA to room check in with pt/family prior to discharge and per pt/family, pt has no homegoing needs at this time. Pt/family aware that if they feel pt needs anything once home that they can call pt's PCP for outpt or C therapy, voice understanding. Pt/family voice no further questions/concerns/needs at this time. [place] WILLEM ANTONIO
[2017-12-11 15:58] LABS: International Normalized Ratio 1.6; Prothrombin Time (Protime)PT. 18.7 SECONDS (11.7-14.9)
[2017-12-12 00:45] LABS: Bedside Glucose 238 mg/dL (70-110)
--- NOTE | 2017-12-12 14:47 | CASEMGMT ---
RN CM DC PHONE CALL Discharge Date 12/11/17 LACE 13/STRATA 3 Disposition: Home Intro role of CM to via phone. She stated pt is doing well, no questions re: dc instructions, medications or f/u. No concerns voiced. stated nurses were very thorough in reviewing dc instructions with both of them prior to dc. Fabricio MCDONOUGHN RN ACM
== END 2017-12-11 16:19 | disposition home or self-care (01) | DRG 871 ==
LOC: ED 19:31 → PCU 22:06
PROVIDERS: Admitting Provider Family Medicine; Emergency Provider Emergency Medicine; Family Provider Family Medicine; PCP Family Medicine
DX: A41.9 Sepsis, unspecified organism (principal); J96.01 Acute respiratory failure with hypoxia; I50.21 Acute systolic (congestive) heart failure; J18.9 Pneumonia, unspecified organism; I48.1 Persistent atrial fibrillation; J91.8 Pleural effusion in other conditions classified elsewhere; R65.20 Severe sepsis without septic shock; Z95.3 Presence of xenogenic heart valve; Z79.84 Long term (current) use of oral hypoglycemic drugs; K21.9 Gastro-esophageal reflux disease without esophagitis; G47.33 Obstructive sleep apnea (adult) (pediatric); I27.29 Other secondary pulmonary hypertension; I25.10 Atherosclerotic heart disease of native coronary artery without angina pectoris; E78.5 Hyperlipidemia, unspecified; Z95.0 Presence of cardiac pacemaker; Z87.891 Personal history of nicotine dependence; E11.9 Type 2 diabetes mellitus without complications
CPT/HCPCS: 36415; 36600; 71046; 71275; 80048; 82803; 82962; 83605; 83735; 84484; 85025; 85610; 87040; 87070; 87205; 87449; 87633; 93005; 93306; 94002; 94003; 94640; 94667; 94668; 97110; 97116; 97162; 97166; 97530; 99282; J7030; Q9967; A4216; J0696

== ENCOUNTER → 2017-12-17 09:28 | Outpatient (CLI) | payer MEDICARE, OTHER, SELFPAY ==
[2017-12-17 10:12] LABS: Absolute Lymphocyte Count 0.57 X10^3/ul (0.83-4.51); Absolute Neutrophil Count 5.9 X10^3/uL (2.0-7.7); Basophil# 0.02 X10^3/uL; Basophil% 0.3 % (0-1); Eosinophil# 0.05 X10^3/uL; Eosinophils% 0.7 % (0-5); Hematocrit 39.4 % (40-54); Hemoglobin 12.2 g/dl (13.0-16.5); Lymphocyte # 0.57 X10^3/ul (4.0); Mean Corpuscular Hgb 27.1 pg (27.0-32.0); Mean Corpuscular Volume 87.6 fL (80-94); Mean Platelet Vol. 10.6 fl (6.2-12.0); Monocyte# 0.51 X10^3/uL; Monocyte% 7.2 % (0-10); Neutrophil # 5.93 X10^3/uL (2.7-7.7); Neutrophil % 83.5 % (47-70); Platelet Count 193 K/mm3 (150-450); RBC Distribution Width CV 16.2 % (11.6-14.6); RBC Distribution Width SD 51.6 fl (35.1-43.9); White Blood Count 7.1 K/mm3 (4.4-11.0)
[2017-12-17 10:13] LABS: Differential Indicated SCAN CRITERIA MET; POSITIVE COUNT NO; POSITIVE DIFFERENTIAL YES; POSITIVE MORPHOLOGY NO
[2017-12-17 10:16] LABS: International Normalized Ratio 1.5; Prothrombin Time (Protime)PT. 17.8 SECONDS (11.7-14.9)
== END ==
PROVIDERS: Family Provider Family Medicine; PCP Family Medicine; Visit Provider Nurse Practitioner Family
DX: I50.20 Unspecified systolic (congestive) heart failure (principal)
CPT/HCPCS: 36415; 85025; 85610

== ENCOUNTER → 2017-12-24 11:04 | Outpatient (CLI) | payer MEDICARE, OTHER, SELFPAY ==
[2017-12-24 12:14] LABS: International Normalized Ratio 1.5; Prothrombin Time (Protime)PT. 17.7 SECONDS (11.7-14.9)
== END ==
PROVIDERS: Family Provider Family Medicine; PCP Family Medicine; Visit Provider Internal Medicine Cardiovascular Disease
DX: I48.2 Chronic atrial fibrillation (principal); Z79.01 Long term (current) use of anticoagulants
CPT/HCPCS: 36415; 85610

== ENCOUNTER → 2017-12-30 07:42 | Outpatient (CLI) | payer MEDICARE, OTHER, SELFPAY ==
--- NOTE | 2017-12-30 07:44 | AAVD_ITS ---
Reason For Study: Atherosclerosis Aorta Measurements Aorta Doppler Measurements Proximal aorta measures2.01 x 2.03cm. in cross- Peak systolic flow velocities within the proximal sectional axis. aorta measure 72 cm/sec. Proximal aorta measures2.06cm. in longitudinal Peak systolic flow velocities within the mid axis. aorta measure 75.7 cm/sec. Mid aorta measures1.99 x 1.93cm. in cross- Peak systolic flow velocities within the distal sectional axis. aorta measure 79.3 cm/sec. Mid aorta measures1.95cm. in longitudinal axis. Distal aorta measures1.68 x 1.63cm. in cross- sectional axis. Distal aorta measures1.65cm. in longitudinal axis. Left Iliac Artery Left iliac artery measures 1.11 cm. in the longitudinal axis. Left iliac artery measures 0.98 x 0.91 cm. in the cross-sectional axis. Peak systolic velocity in the left iliac artery measures 125 cm/sec. Right Iliac Artery Right iliac artery measures 0.95 cm. in the longitudinal axis. Right iliac artery measures 0.92 x 0.94 cm. in the cross-sectional axis. Peak systolic velocity in the right iliac artery measures 119 cm/sec. Procedure Aorta IVC Iliac vasculature or bypass grafts [id number]. Exam performed in department. Interpretation Summary 1. No aortoiliac stenosis. Ordering Physician: Deven Ramirez Referring Physician: Lei Funes Performed By: Anum Fuchs RVT and Student
--- NOTE | 2017-12-30 07:45 | ADUL_ITS ---
Reason For Study: Atherosclerosis w claudication Left Velocities Ext Iliac Artery, dist = 74.7 cm./sec. Common Femoral Artery, prox = 101.0 cm./sec. Supf. Femoral Artery, prox = 53.9 cm./sec. Supf. Femoral Artery, mid = 55.7 cm./sec. Supf. Femoral Artery, dist = 44.0 cm./sec. Profunda Femoral Artery = 49.8 cm./sec. Popliteal Artery, proximal, = 436.0 cm./sec. Popliteal Artery, mid = 34.2 cm./sec. Popliteal Artery, distal = 23.6 cm./sec. Post. Tibial Artery, prox = 37.7 cm./sec. Post Tibial Artery, mid = 24.0 cm./sec. Peroneal Artery, prox = 41.2 cm./sec. Peroneal Artery, mid = 40.9 cm./sec. Peroneal Artery,dist. = 38.9 cm./sec. Ant.Tibial Artery, prox = 40.1 cm./sec. Ant Tibial Artery, mid = 39.7 cm./sec. Ant. Tibial Artery, distal = 52.2 cm./sec. Procedure Exam performed in department. Interpretation Summary 1. Severe stenosis with left popliteal stenosis. Ordering Physician: Deven Ramirez Referring Physician: Lei Funes Performed By: Anum Fuchs RVT
--- NOTE | 2017-12-31 08:39 | LEAS ---
Arterial Study - Arterial Study Arterial Study: Date scan 12/30/2017 Trip and position of the bladder Interpretation: Right lower extremity with fairly normal flow down at the right lower extremity mostly of a biphasic waveform of the PT with an CHU 1.17 the DP near triphasic but noncompressible. Digit brachial index 0.68. Next Left lower extremity with monophasic waveform noted at the ankle the knee by 0.66 at the PT 0.82 with a DP. Digital brachial index 0.35. Impression: 1. Right lower extremity with no evidence of significant arterial occlusive disease at rest with an CHU of 1.17. 2. Left lower extremity with moderate arterial occlusive disease with an CHU of 0.82 with a DP that may be falsely elevated. PT at 0.66. 3. Small vessel disease left lower extremity with TBI 0.35
== END ==
PROVIDERS: Family Provider Family Medicine; PCP Family Medicine; Visit Provider Surgery Vascular Surgery
DX: I70.213 Atherosclerosis of native arteries of extremities with intermittent claudication, bilateral legs (principal); I74.09 Other arterial embolism and thrombosis of abdominal aorta; E11.9 Type 2 diabetes mellitus without complications; Z85.46 Personal history of malignant neoplasm of prostate
CPT/HCPCS: 93922; 93926; 93978

== ENCOUNTER → 2018-01-01 14:16 | Outpatient (CLI) | payer MEDICARE, OTHER, SELFPAY ==
[2018-01-01 16:04] LABS: International Normalized Ratio 1.5; Prothrombin Time (Protime)PT. 17.8 SECONDS (11.7-14.9)
== END ==
PROVIDERS: Family Provider Family Medicine; PCP Family Medicine; Referring Provider Internal Medicine Cardiovascular Disease; Visit Provider Internal Medicine Cardiovascular Disease
DX: I48.0 Paroxysmal atrial fibrillation (principal); Z79.01 Long term (current) use of anticoagulants
CPT/HCPCS: 36415; 85610

== ENCOUNTER → 2018-01-05 08:42 | Outpatient (CLI) | payer MEDICARE, OTHER, SELFPAY ==
[2018-01-05 09:42] VITALS: PULSE 103; PULSE 104; PULSE 107; PULSE 90; PULSE 91; PULSE 94; PULSE 96; O2SAT 89; O2SAT 90; O2SAT 91; O2SAT 92
--- NOTE | 2018-01-05 15:05 | PCM.PSN.6M ---
PSN 6 Minute Walk Test - 6 Minute Walk Test 6 Minute Walk Test: 6 Minute Walk Test PSN:6-Minute Walk Test Start: 01/05/18 09:42 Freq: Status: Active Protocol: [id number] Document 01/05/18 09:42 MIHAI (Rec: 01/05/18 09:47 MIHAI [id number]) 6 Minute Walk Test Date Performed 01/05/18 Time Performed 09:00 Height 5 ft 7.5 in Weight: 87.997 kg Weight in Pounds 194.[address]: Daniel Phillips Assistive device used: None Pre-test Oxygen Delivery Method Room Air Pulse Ox (%) 91 Pulse Rate (60-100 beats/min) 90 Dyspnea Anjel Scale (0-10) 0 Exertion Anjel Scale (6-20) 6 1st minute Oxygen Delivery Method Room Air Pulse Ox (%) 91 Pulse Rate (60-100 beats/min) 91 2nd minute Oxygen Delivery Method Room Air Pulse Ox (%) 90 Pulse Rate (60-100 beats/min) 96 3rd minute Oxygen Delivery Method Room Air Pulse Ox (%) 90 Pulse Rate (60-100 beats/min) 103 H 4th minute Oxygen Delivery Method Room Air Pulse Ox (%) 90 Pulse Rate (60-100 beats/min) 104 H 5th minute Oxygen Delivery Method Room Air Pulse Ox (%) 89 Pulse Rate (60-100 beats/min) 104 H 6th minute Oxygen Delivery Method Room Air Pulse Ox (%) 90 Pulse Rate (60-100 beats/min) 107 H Dyspnea Anjel Scale (0-10) 0 Exertion Anjel Scale (6-20) 12 Post-test Oxygen Delivery Method Room Air Pulse Ox (%) 92 Pulse Rate (60-100 beats/min) 94 Full Laps Walked 10 Partial Lap, Number of Tiles Walked 40 Total Distance Walked (ft) 630 - Interpretation Interpretation: The patient was able to ambulate 630 feet over the course of 6 minutes on room air with no assistive devices or breaks. The patient was noted to have a lower baseline saturation of 91%, but lowest documented saturation with ambulation was 89%. Patient did have mild tachycardia associated with ambulation. These findings are consistent with a respiratory limitation exercise tolerance. - Recommendations Recommendations: Supplemental oxygen is indicated at this time. However, patient will need to be followed closely given level of desaturation.
== END ==
PROVIDERS: Family Provider Family Medicine; PCP Family Medicine; Visit Provider Nurse Practitioner Acute Care
DX: R06.02 Shortness of breath (principal)
CPT/HCPCS: 94618

== ENCOUNTER 2018-01-07 07:58 | Inpatient (IN) | payer MEDICARE, OTHER, SELFPAY ==
[2018-01-07 08:01] VITALS: BP 111/63; PULSE 86; RESP 18; TEMP 36.6; O2SAT 94; BMI 29.0
--- NOTE | 2018-01-07 08:16 | CT_ITS ---
STUDY: CT CHEST WITHOUT CONTRAST REASON FOR EXAM: Male, 77 years old. Fall with left rib pain RADIATION DOSAGE (If Supplied By Facility): CTDIvol = ( 16.30 ) mGy, DLP = ( 288.49 ) mGycm TECHNIQUE: Transaxial imaging was performed without the administration of intravenous contrast material. Individualized dose optimization techniques were used for this CT. COMPARISON: 12/07/17 and 03/01/2015 FINDINGS: Lungs are adequately inflated without acute airspace disease. No pneumothorax. There is a spiculated soft tissue nodule in the inferior aspect of the right middle lobe measuring 10 x 7 mm. There is no demonstrated pleural abnormality. Moderate to severe cardiomegaly is noted. Left chest wall pacing device. Decreased size of mediastinal lymphadenopathy as compared to the exam from December. Normal hilar regions. Normal unenhanced pulmonary arteries. There is atherosclerotic calcification of the aortic arch with tortuosity and elongation of the aortic arch and descending thoracic aorta. Barely visible nondisplaced left-sided lateral fourth, fifth, sixth rib fractures. No other rib fractures are noted. No evidence of thoracic spine compression fracture. There is no demonstrated abnormality of the visualized upper abdomen. CT/Chest without Contrast IMPRESSION: 1. Nondisplaced and subtle left-sided lateral fourth, fifth, sixth rib fractures. No pneumothorax. 2. Lungs are adequately inflated and clear 3. Spiculated soft tissue nodule in the right middle lobe. This appears somewhat more spiculated than the exam in 2015. Malignancy is not fully excluded; consider PET/CT to further evaluate. 4. Decreased mediastinal lymphadenopathy Electronically Signed: Jasiel Olvera DO at 9:30 EDT Tel , Service support ,
--- NOTE | 2018-01-07 08:16 | RAD_ITS ---
STUDY: X-RAY - PELVIS AND LEFT HIP REASON FOR EXAM: Male, 77 years old. Left hip pain after fall TECHNIQUE: Radiological exam, hip, unilateral, with pelvis when performed; 2 or 3 views. COMPARISON: None. FINDINGS: Mildly comminuted medial left pubic ramus fracture. No significant displacement. No evidence of left femoral neck fracture. RAD/HIP, UNI W/ Pelvis 2-3 Views IMPRESSION: Left-sided pubic ramus fracture. No evidence of femoral neck fracture. Electronically Signed: Jasiel Olvera DO at 9:31 EDT Tel , Service support ,
--- NOTE | 2018-01-07 08:16 | CT_ITS ---
STUDY: CT BRAIN WITHOUT CONTRAST REASON FOR EXAM: Male, 77 years old. Fall last night with head and rib pain RADIATION DOSAGE (If Supplied By Facility): CTDIvol = ( 44.99 ) mGy, DLP = ( 815.79 ) mGycm TECHNIQUE: Transaxial CT imaging of the brain was performed without administration of intravenous contrast material. Individualized dose optimization techniques were used for this CT. COMPARISON: 09/02/2017 FINDINGS: Normal soft tissue structures. Normal calvarium. There is mild cerebral atrophy with widening of the extra-axial spaces and ventricular dilatation. There are areas of decreased attenuation within the white matter tracts of the supratentorial brain, consistent with microvascular disease changes. Normal basal ganglia and thalami. Normal brainstem. There is mild cerebellar atrophy. There is no intracranial hemorrhage. There are no findings of an acute ischemic infarction. Normal visualized paranasal sinuses. 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 Electronically Signed: Jasiel Olvera DO at 9:21 EDT Tel , Service support ,
--- NOTE | 2018-01-07 08:33 | ED.VISSUMM ---
- ER Visit Summary Date of Service: 01/07/18 Chief Complaint: [Fall] History of Present Illness: The patient is a 77 M [presents the emergency department with complaint of a fall that occurred approximately 7:30 PM last evening. Patient apparently was taking his trash out to the curb when he turned and tripped over the curb falling to the ground on the concrete. Patient does not believe he struck his head. There is no loss of consciousness. Patient had a hard time getting up in 1 of the neighbors came over to let the know that the patient had fallen in the street. Another individual stopped and help get the patient up on his feet and he was able to carefully walk into the house. Patient now complaining of pain in his left ribs as well as the left hip with ambulation. Patient having a hard time bearing weight on the left hip. Patient denies any chest pain or shortness of breath. He denies any neck pain. He denies any paresthesias. Patient is on Coumadin due to history of A. fib.] Physical Examination: [HEENT-PERRLA, EOMI. Cranial nerves II through XII grossly intact. TMs clear. Mucous membranes moist. No adenopathy. C-spine tenderness on palpation and he has normal active range of motion is painless. Cardiovascular-regular rate and rhythm without murmur or ectopy Lungs-clear to auscultation, chest wall stable without crepitus or subcu emphysema. Patient does have tenderness palpation over the left anterior chest wall and to the mid axillary line. Abdomen-normoactive bowel sounds, soft, nontender, no rebound or rigidity, no peritoneal signs. Back exam-patient has no tenderness over the thoracic or lumbar spine. Extremities-intact ?4, normal range of motion, normal pulses, atraumatic. There is no obvious external rotation or shortening of the left lower extremity. Patient has mild discomfort on palpation of the left hip. Patient has some discomfort with logrolling. He is neurovascular intact distally. There is no ecchymosis or bruising noted over the hip.] Test Results: [EKG obtained arrival showed a sinus rhythm with a ventricular rate of 75 bpm with a right bundle branch block and wide QRS criteria. CBC with differential showed a white count of 5.9, hemoglobin 10.9, hematocrit 38, platelets 189. Chemistries unremarkable. INR was 1.4. Troponin was less than 0.015. CT scan of the brain showed chronic involutional changes. CT of the chest showed left fifth, sixth, and seventh rib fractures. X-rays of the left hip and pelvis showed a fracture of the superior pubic ramus but no definitive hip fracture.] Emergency Department Course and Treatment: [Patient refused pain medication in the emergency department] Treatment Plan: [Admit] Disposition: Admit for pain control and possible physical therapy and rehab [] Impression: [Mechanical fall Left superior pubic ramus fracture Left rib fractures Coumadin coagulopathy] This note was generated with [employer] dictation software. It may contain incorrect words, spelling, and punctuation that were not noted in review of the chart prior to signing ED Disposition - Plan for ED Patient: Disposition: Acute Care Hospital [facility] Chief Complaint: Fall Referrals: Lei Funes DO [Primary Care Provider] -
--- NOTE | 2018-01-07 08:36 | ED.DCSUM_ITS ---
- ER Visit Summary Date of Service: 01/07/18 Chief Complaint: [Fall] History of Present Illness: The patient is a 77 M [presents the emergency department with complaint of a fall that occurred approximately 7:30 PM last evening. Patient apparently was taking his trash out to the curb when he turned and tripped over the curb falling to the ground on the concrete. Patient does not believe he struck his head. There is no loss of consciousness. Patient had a hard time getting up in 1 of the neighbors came over to let the know that the patient had fallen in the street. Another individual stopped and help get the patient up on his feet and he was able to carefully walk into the house. Patient now complaining of pain in his left ribs as well as the left hip with ambulation. Patient having a hard time bearing weight on the left hip. Patient denies any chest pain or shortness of breath. He denies any neck pain. He denies any paresthesias. Patient is on Coumadin due to history of A. fib.] Physical Examination: [HEENT-PERRLA, EOMI. Cranial nerves II through XII gr ossly intact. TMs clear. Mucous membranes moist. No adenopathy. C-spine tenderness on palpation and he has normal active range of motion is painless. Cardiovascular-regular rate and rhythm without murmur or ectopy Lungs-clear to auscultation, chest wall stable without crepitus or subcu emphysema. Patient does have tenderness palpation over the left anterior chest wall and to the mid axillary line. Abdomen-normoactive bowel sounds, soft, nontender, no rebound or rigidity, no peritoneal signs. Back exam-patient has no tenderness over the thoracic or lumbar spine. Extremities-intact ?4, normal range of motion, normal pulses, atraumatic. There is no obvious external rotation or shortening of the left lower extremity. Patient has mild discomfort on palpation of the left hip. Patient has some discomfort with logrolling. He is neurovascular intact distally. There is no ecchymosis or bruising noted over the hip.] Test Results: [EKG obtained arrival showed a sinus rhythm with a ventricular rate of 75 bpm with a right bundle branch block and wide QRS criteria. CBC with differential showed a white count of 5.9, hemoglobin 10.9, hematocrit 38, platelets 189. Chemistries unremarkable. INR was 1.4. Troponin was less than 0.015. CT scan of the brain showed chronic involutional changes. CT of the chest showed left fifth, sixth, and seventh rib fractures. X-rays of the left hip and pelvis showed a fracture of the superior pubic ramus but no definitive hip fracture.] Emergency Department Course and Treatment: [Patient refused pain medication in the emergency department] Treatment Plan: [Admit] Disposition: Admit for pain control and possible physical therapy and rehab [] Impression: [Mechanical fall Left superior pubic ramus fracture Left rib fractures Coumadin coagulopathy] This note was generated with [employer] dictation software. It may contain incorrect words, spelling, and punctuation that were not noted in review of the chart prior to signing ED Disposition - Plan for ED Patient: Disposition: Acute Care Hospital [facility] Chief Complaint: Fall Referrals: Lei Funes DO [Primary Care Provider] -
[2018-01-07 08:42] LABS: International Normalized Ratio 1.4; Prothrombin Time (Protime)PT. 17.4 SECONDS (11.7-14.9)
--- NOTE | 2018-01-07 08:55 | EKG12_ITS ---
Test Reason : FALL Blood Pressure : / mmHG Vent. Rate : 075 BPM Atrial Rate : 081 BPM P-R Int : 000 ms QRS Dur : 128 ms QT Int : 484 ms P-R-T Axes : 000 -24 074 degrees QTc Int : 540 ms Junctional rhythm Right bundle branch block Minimal voltage criteria for LVH, may be normal variant Abnormal ECG Confirmed by TERRY GUERRERO, KAMRAN ([id number]), food editor IZZY SNYDER ([id number]) on 01/14/2018 3:34:37 PM Referred By: Brissa Santoro Confirmed By:KAMRAN STEWART MD
[2018-01-07 09:07] LABS: Absolute Lymphocyte Count 0.64 X10^3/ul (0.83-4.51); Absolute Neutrophil Count 4.4 X10^3/uL (2.0-7.7); Basophil# 0.01 X10^3/uL; Basophil% 0.2 % (0-1); Eosinophil# 0.06 X10^3/uL; Hematocrit 34.2 % (40-54); Hemoglobin 10.9 g/dl (13.0-16.5); Lymphocyte # 0.64 X10^3/ul (4.0); Lymphocyte % 10.9 % (19-41); Mean Corp Hgb Conc 31.9 g/gl (32-36); Mean Corpuscular Hgb 27.7 pg (27.0-32.0); Mean Corpuscular Volume 86.8 fL (80-94); Mean Platelet Vol. 10.2 fl (6.2-12.0); Monocyte# 0.69 X10^3/uL; Monocyte% 11.8 % (0-10); Neutrophil # 4.44 X10^3/uL (2.7-7.7); Neutrophil % 75.9 % (47-70); POSITIVE COUNT NO; POSITIVE DIFFERENTIAL NO; POSITIVE MORPHOLOGY NO; Platelet Count 189 K/mm3 (150-450); RBC Distribution Width CV 16.8 % (11.6-14.6); RBC Distribution Width SD 53.5 fl (35.1-43.9); Red Blood Count 3.94 M/mm3 (4.6-6.2); White Blood Count 5.9 K/mm3 (4.4-11.0)
[2018-01-07 09:26] LABS: Anion Gap 9 (5-15); BUN 24 mg/dL (7-18); BUN/Creat Ratio 20.3 RATIO (10-20); Chloride 104 mmol/L (98-107); Creatinine, Serum 1.18 mg/dL (0.70-1.30); EST Glomerular Filtration Rate 64 mL/min (>60); Est Glom Filt Rate - Afr Amer 77 mL/min (>60); Estimated Creatinine Clearance 49.79 ml/min; Glucose 184 mg/dL (74-106); Potassium 4.5 mmol/L (3.5-5.1); Sodium Level 136 mmol/L (136-145)
[2018-01-07 10:05] VITALS: BP 139/76; PULSE 81; RESP 16; O2SAT 96
[2018-01-07 10:50] VITALS: BP 123/67; PULSE 85; RESP 18; TEMP 36.5; O2SAT 93
[2018-01-07 10:51] VITALS: BMI 28.9
[2018-01-07 11:05] VITALS: BMI 28.9
--- NOTE | 2018-01-07 12:12 | PCM.HP.STD ---
History of Present Illness Date of Admission: 01/07/18 Chief Complaint: Patient had fall on left side of chest and hip. The patient is a 77 year old M with multiple comorbidities including recent admission in December 2017 for acute hypoxic and hypercarbic respiratory failure secondary to pneumonia and acute heart failure with reduced ejection fraction was brought into ER after he fell down yesterday night when he tripped and fell on the concrete while trying to pull trash can. Patient denies loss of consciousness or hitting her head. Patient complain of pain over left chest and left hip. EKG shows normal sinus rhythm with wide QRS with right bundle branch block. Patient has left subclavicular pacemaker. In ED, chest CT scan was done and shows nondisplaced and short of left-sided lateral fourth fifth and sixth rib fractures. No pneumothorax. Lungs are adequately inflated and clear. There was also mention of a spiculated soft tissue nodule in the right middle lobe and appears more spiculated than previous 2015. Left hip/pelvis x-ray shows fracture of superior ramus of left pelvis CT head does not show acute change. Patient is on Coumadin for A. fib and INR is 1.4. [] Past Medical History Past Medical History (Chronic Problems): Chronic Problems (Last Reviewed 12/22/17 @ 16:05 by Brissa Santoro NP-C) Paroxysmal atrial fibrillation (Chronic) S/P MAZE procedure in 2016; Sick sinus syndrome (Chronic) CLEMENT (obstructive sleep apnea) (Chronic) Congestive heart failure, unspecified (Chronic) Other secondary pulmonary hypertension (Chronic) Nonrheumatic mitral valve regurgitation (Chronic) Nonrheumatic aortic (valve) stenosis (Chronic) Nonrheumatic aortic (valve) insufficiency (Chronic) Carotid artery stenosis (Chronic) Chronic atrial fibrillation (Chronic) Atherosclerotic heart disease of [place] coronary artery without angina pectoris (Chronic) History of maze procedure (Chronic) mitral valve repair and MAZE procedure 01/24/[address] Tolliver @ [facility] UGIB (upper gastrointestinal bleed) (Chronic) Duodenal ulcer (Chronic) Physical debility (Chronic) Supratherapeutic INR (Chronic) Hypokalemia (Chronic) Pancytopenia (Chronic) Symptomatic anemia (Chronic) Sepsis (Chronic) Hyperlipidemia (Chronic) Status post placement of cardiac pacemaker (Chronic) Permanent pacemaker placement 02/02/16 @ [facility] Status post mitral valve repair (Chronic) mitral valve repair and MAZE procedure 01/24/[address] 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) Aortic Valve Replacement w/ 23-mm Jay-Aragon pericardial valve Atrial fibrillation (Chronic) DM2 (diabetes mellitus, type 2) (Chronic) Medical History: Medical History (Last Reviewed 12/22/17 @ 16:05 by Brissa Santoro, WEB SERVICES MANAGER-C) Sick sinus syndrome (Chronic) I49.5 CLEMENT (obstructive sleep apnea) (Chronic) G47.33 Congestive heart failure, unspecified (Chronic) I50.9 Other secondary pulmonary hypertension (Chronic) I27.29 Nonrheumatic mitral valve regurgitation (Chronic) I34.0 Nonrheumatic aortic (valve) stenosis (Chronic) I35.0 Nonrheumatic aortic (valve) insufficiency (Chronic) I35.1 Carotid artery stenosis (Chronic) I65.29 Chronic atrial fibrillation (Chronic) I48.2 Atherosclerotic heart disease of [place] coronary artery without angina pectoris (Chronic) I25.10 Hyperlipidemia (Chronic) E78.5 DM2 (diabetes mellitus, type 2) (Chronic) E11.9 Hypothyroidism E03.9 Allergies No Known Allergies Allergy (Verified 01/07/18 07:59) Home Medications: Ambulatory Orders Medication Instructions Recorded aspirin 81 mg tablet,delayed 81 mg PO QDAY 07/24/17 release sertraline 100 mg tablet 100 mg PO QDAY 30 Days #30 tab 07/24/17 Cilostazol [Pletal] 100 mg PO DAILY 12/07/17 Albuterol Inhaler [Ventolin Hfa] 1 - 2 puff INHALATION Q4H PRN PRN 12/11/17 #1 inhaler furosemide 40 mg tablet 40 mg PO DAILY 12/22/17 Carvedilol [Coreg] 6.25 mg PO BID 01/07/18 Glimepiride [Amaryl] 4 mg PO DAILY@0800 01/07/18 Lisinopril [Zestril] 10 mg PO DAILY 01/07/18 Metformin HCl [Glucophage] 500 mg PO BIDCM 01/07/18 Pioglitazone [Actos] 30 mg PO DAILY@0800 01/07/18 Potassium Chloride [K-Dur] 10 meq PO DAILY 01/07/18 Warfarin [Coumadin (PBKC)] 7.5 mg PO WETHFR 01/07/18 Warfarin [Coumadin] 5 mg PO SUMOTUSA 01/07/18 Surgical History: Surgical History (Last Reviewed 12/22/17 @ 16:05 by ALEX Huber) History of maze procedure (Chronic) Z98.890 mitral valve repair and MAZE procedure 01/24/[address] Tolliver @ [facility] Status post placement of cardiac pacemaker (Chronic) Z95.0 Permanent pacemaker placement 02/02/16 @ [facility] Status post mitral valve repair (Chronic) Z98.890 mitral valve repair and MAZE procedure 01/24/[address] 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 Psychiatric History: No pertinent psych hx Smoking Status: Former smoker - *Family History Maternal Family History: Family History (Last Reviewed 12/22/17 @ 16:05 by ALEX Huber) Mother Myocardial infarction CAD (coronary artery disease) Hypertension Sister Hypertension CVA (cerebral vascular accident) Son Diabetes History Items: Heart Disease, Hypertension Paternal Family History: Family History (Last Reviewed 12/22/17 @ 16:05 by ALEX Huber) Mother Myocardial infarction CAD (coronary artery disease) Hypertension Sister Hypertension CVA (cerebral vascular accident) Son Diabetes History Items: No pertinent history Sibling Family History: Family History (Last Reviewed 12/22/17 @ 16:05 by ALEX Huber) Mother Myocardial infarction CAD (coronary artery disease) Hypertension Sister Hypertension CVA (cerebral vascular accident) Son Diabetes History Items: Hypertension, Stroke Offspring Family History: Family History (Last Reviewed 12/22/17 @ 16:05 by ALEX Huber) Mother Myocardial infarction CAD (coronary artery disease) Hypertension Sister Hypertension CVA (cerebral vascular accident) Son Diabetes History Items: Diabetes Review of Systems Constitutional: Denies: Chills, Fever, Weight Change HEENT: Denies: Head Aches, Sinus Congestion, Sinus Drainage Cardiovascular: Reports: Chest Pain. Denies: Palpitations Respiratory: Reports: Shortness of breath upon exertion. Denies: Cough, Shortness of breath at rest, Sputum production Gastrointestinal: Denies: Abdominal Pain, Nausea, Vomiting Genitourinary: Denies: Dysuria Musculoskeletal: Reports: Joint Pain, Joint Tenderness Skin: Denies: Rash, Wounds Neurological: Denies: Numbness, Tingling, Focal weakness Psychiatric: Denies: Anxiety, Depression, Homicidal Ideations, Suicidal Ideations Hematologic/ Lymphatic: Denies: Easy Bruising, Easy Bleeding VTE Information - Inpt Only VTE Present on Admission: No VTE Mechan Device Prophylaxis: None VTE Pharm Prophylaxis ordered?: Yes - Physical Exam General: Alert, Oriented x3, Cooperative HEENT: Atraumatic, PERRLA, EOMI, Normocephalic Neck: Supple, No JVD, Negative Carotid Bruits Lungs: Clear to auscultation, Normal air movement Cardiovascular: Regular rate, Normal S1, Normal S2, No murmurs, - - Left subclavicular pacemaker Abdomen: Bowel Sounds Present, Soft, Non Tender Extremities: Capillary Refill Less than 3 Seconds, Edema Skin: No rashes, No breakdown Musculoskeletal: Arthritic Changes, Tenderness - Tenderness over left lateral rib cage. No subcutaneous emphysema palpated. Neurological: Cranial nerves II-XII grossly intact, Neuro grossly intact Psych/Mental Status: Normal Affect, Appropriate Vital Signs Temp Pulse Resp BP Pulse Ox 97.7 F L 85 18 123/67 H 93 01/07/18 10:50 01/07/18 10:50 01/07/18 10:50 01/07/18 10:50 01/07/18 10:50 Oxygen Delivery Method Room Air Weight: 184 lb 8 oz Body Mass Index (BMI) 28.9 Finger Stick Blood Glucose 235 Laboratory Tests Past 24 Hrs 01/07/18 01/07/18 01/07/18 08:20 08:40 08:40 WBC 5.9 RBC 3.94 L Hgb 10.9 L Hct 34.2 L MCV 86.8 MCH 27.7 MCHC 31.9 L RDW 16.8 H RDW Differential 53.5 H Plt Count 189 MPV 10.2 Immature Gran % (Auto) 0.200 Neut % (Auto) 75.9 H Lymph % (Auto) 10.9 L [place] % (Auto) 11.8 H Eos % (Auto) 1.0 Baso % (Auto) 0.2 Absolute Neuts (auto) 4.4 Absolute Lymphs (auto) 0.64 L Total Counted Not Reportable PT 17.4 H INR 1.4 Sodium 136 Potassium 4.5 Chloride 104 Carbon Dioxide 23.0 Anion Gap 9 BUN 24 H Creatinine 1.18 Estim Creat Clear Calc 49.79 Est GFR (MDRD) Af Amer 77 Est GFR (MDRD) Non-Af 64 BUN/Creatinine Ratio 20.3 H Glucose 184 H Calcium 9.0 Troponin I < 0.015 Assessment/Plan All Active Problems (Last Reviewed 12/22/17 @ 16:05 by Brissa Santoro, PAULETTE-C) Shortness of breath (Acute) senior care (current) use of anticoagulants (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 Patient denies loss of consciousness or hitting her head. Patient complain of pain over left chest and left hip. EKG shows normal sinus rhythm with wide QRS with right bundle branch block. Patient has left subclavicular pacemaker. In ED, chest CT scan was done and shows nondisplaced and short of left-sided lateral fourth fifth and sixth rib fractures. No pneumothorax. Lungs are adequately inflated and clear. There was also mention of a spiculated soft tissue nodule in the right middle lobe and appears more spiculated than previous 2015. Left hip/pelvis x-ray shows fracture of superior ramus of left pelvis CT head does not show acute change. Patient is on Coumadin for A. fib and INR is 1.4. 1. Left sided lateral fourth, fifth and sixth rib fractures: Patient is being admitted to regular MedSurg floor. Incentive spirometry. Pain control. We will repeat chest x-ray PA and lateral tomorrow. 2. Left pubic superior ramus fracture: Left pelvis/hip x-ray also reported as no hip fracture but hard to determine on imaging. Discussed with the orthopedic surgeon, Dr. Eb Kemp and he suggested MRI left pelvis and hip but could not be done as patient has pacemaker and difficulty in laying down with ribs fracture. CT left pelvis and left hip without contrast ordered. If it is pubic fracture, Dr. Kemp said he does not have to see while inpatient but if hip fracture he will see him. PT and OT ordered. Pain control. 3. Recent admission with acute combined hypoxic and hypercarbic respiratory leave secondary to pneumonia and acute heart failure with reduced ejection fraction:: Patient had recent echo which shows EF 40% with moderate concentric LVH, mild global left ventricular systolic dysfunction which was tolerated from previous EF 50% in 2016. Patient also has moderately dilated right ventricle, LA severely enlarged, right atrium severely enlarged. Mild to moderate MS with mild MR. Moderate pulmonary hypertension, RVSP 45 mmHg with severe 3+ TR we will continue his cardiac medications. 4. Cardiac conditions: Coronary atherosclerosis, paroxysmal A. 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 We will continue Coumadin and monitor INR daily. 5. Diabetes mellitus type 2: Accu-Chek before meals and at bedtime cover with NovoLog sliding scale. 6. Other comorbidities include history of duodenal ulcer, dyslipidemia, and obstructive sleep apnea: Positive pressure ventilation is contraindicated and therefore Do not put on CPAP. Home medication consideration. Multiple comorbidities complicates the present care and expect difficult and delay recovery DVT prophylaxis: On Coumadin Laboratory Results 01/07/18 08:20: PT 17.4 H, INR 1.4 01/07/18 08:40: WBC 5.9, RBC 3.94 L, Hgb 10.9 L, Hct 34.2 L, MCV 86.8, MCH 27.7, MCHC 31.9 L, RDW 16.8 H, RDW Differential 53.5 H, Plt Count 189, MPV 10.2, Immature Gran % (Auto) 0.200, Neut % (Auto) 75.9 H, Lymph % (Auto) 10.9 L, [place] % (Auto) 11.8 H, Eos % (Auto) 1.0, Baso % (Auto) 0.2, Absolute Neuts (auto) 4.4, Absolute Lymphs (auto) 0.64 L, Total Counted Not Reportable 01/07/18 08:40: Sodium 136, Potassium 4.5, Chloride 104, Carbon Dioxide 23.0, Anion Gap 9, BUN 24 H, Creatinine 1.18, Estim Creat Clear Calc 49.79, Est GFR (MDRD) Af Amer 77, Est GFR (MDRD) Non-Af 64, BUN/Creatinine Ratio 20.3 H, Glucose 184 H, Calcium 9.0, Troponin I < 0.015 Clinical Impression(s) from Imaging Studies Brain CT 01/07/18 08:16 IMPRESSION: Chronic involutional changes of the brain. Chest CT 01/07/18 08:16 IMPRESSION: 1. Nondisplaced and subtle left-sided lateral fourth, fifth, sixth rib fractures. No pneumothorax. 2. Lungs are adequately inflated and clear 3. Spiculated soft tissue nodule in the right middle lobe. This appears somewhat more spiculated than the exam in 2015. Malignancy is not fully excluded; consider PET/CT to further evaluate. 4. Decreased mediastinal lymphadenopathy Hip/Pelvis X-Ray 01/07/18 08:16 IMPRESSION: Left-sided pubic ramus fracture. No evidence of femoral neck fracture. Code Visit Inpatient E&M: 10169 Subs Hosp L3
[2018-01-07] MEDS: oxyCODONE 5 MG Tablet PO ×2 (12:52→22:16)
[2018-01-07] MEDS: 0.9% Normal Saline 1,000 ML 75 ML IV (12:53)
--- NOTE | 2018-01-07 13:27 | CT_ITS ---
STUDY: CT PELVIS WITHOUT CONTRAST REASON FOR EXAM: Male, 77 years old. Left hip fracture. RADIATION DOSAGE (If Supplied By Facility): CTDIvol = ( 24.54 ) mGy, DLP = ( 1410.48 ) mGycm TECHNIQUE: Transaxial imaging of the pelvis was performed with oral contrast, and without intravenous administration of contrast material. Individualized dose optimization techniques were used for this CT. COMPARISON: Radiographs of the same day which showed left pubic rami fractures.. FINDINGS: Comminuted fractures are seen of the distal left superior pubic ramus extending into the right side of the pubis. Comminuted fractures are seen of the left inferior pubic ramus. No other acute fractures are seen. No dislocations. Intact symphysis pubis. 2 cm cyst seen in the right head of the femur. Normal urinary bladder. Normal visualized small intestine. Normal visualized colon. There is no pelvic fluid. There is no pelvic mass lesion or lymphadenopathy. There is enlargement of the prostate gland. There are radiotherapy seeds in the prostate. There is diffuse atherosclerotic calcification of the pelvic arteries with elongation and tortuosity. Normal abdominal wall. CT/Pelvis without IV Contrast IMPRESSION: Comminuted fractures are seen of the distal left superior pubic ramus extending into the right side of the pubis. Comminuted fractures are seen of the left inferior pubic ramus. No other acute abnormalities. Electronically Signed: Oscar Diaz MD at 16:04 EDT , Service support ,
--- NOTE | 2018-01-07 13:27 | CT_ITS ---
Exam: CT of the left lower extremity. HISTORY: Fracture. Fall. COMPARISON: CT of the pelvis from the same day. Radiographs of the same day which already diagnosed left pubic rami fractures. FINDINGS: The CT scan confirms the previously seen fractures of the left superior pubic rami extending into and involving the left side of the pubis. There is also nondisplaced fracture of the distal inferior pubic ramus, and additional comminuted mildly displaced and angulated fractures of the more proximal left inferior pubic ramus. Normal appearance of the acetabulum and visualized left femur. Soft tissue images show minimal hemorrhage related to the pubic rami fractures. Radiotherapy seeds are seen in the prostate. CT/Extremity Lower without Contra IMPRESSION: Confirmation of fractures of the superior and inferior left pubic rami. Electronically Signed: Oscar Diaz MD at 15:50 EDT , Service support ,
[2018-01-07] MEDS: Polyethylene Glycol 3350 17 GM PACKET PO (13:32)
--- NOTE | 2018-01-07 15:17 | CASEMGMT ---
WILLEM ANTONIO Assessment: Visited with pt and pt's at the beside. Pt alert and willing to participate. Pt's assisted with questions as well. Demographics and insurance confirmed. Pt states he has been independent with ADLs prior to admission. Was ambulating without assistive devices and driving. Pt lives in a one story story home with one entry step from the garage. Laundry and all needs are available on the main level. relays that their bathroom was recently renovated to include a walk in shower, higher toilet (also have an elevated seat), and grab bars. Pt's is able to drive pt to appointments as needed. Pt's son Momo also lives close by and can assist as needed. Pt reports he had been doing well at home since his previous admission. [facility] will and HPOA: Pt's will bring these in to be scanned. CT imaging pending at this time. Plan of care yet to be determined based on imaging findings. WILLEM ANTONIO will continue to follow for determination of DC needs. Romi Rider RN
[2018-01-07 15:48] VITALS: BP 120/72; PULSE 89; RESP 18; TEMP 37.4; O2SAT 91
--- NOTE | 2018-01-07 17:15 | CHAPLAIN ---
Type of Pastoral Visit _x__ Initial Visit ___ Follow-up Visit ___ On-call Visit ___ General Patient Visit ___ Spiritual Assessment ___ Family Conference ___ Bereavement ___ Rapid Response ___ Code Blue ___ Other (describe below) Pastoral Care Referral From _x__ Patient ___ Family ___ Nurse ___ Physician ___ Campground Manager ___ Licensing Specialist ___ Other (describe below) Sacrament/Intervention _x__ Active listening ___ Anointing ___ Mu-Ism ___ Bereavement ___ Communion ___ Verna exploration ___ ___ Life review _x__ Prayer ___ Reconciliation ___ Sacrament of Sick ___ Supportive presence ___ Wedding ___ Other (describe below) Pastoral Comments
[2018-01-07 17:28] VITALS: BP 138/69; PULSE 98; RESP 18; TEMP 36.9; O2SAT 92
[2018-01-07] MEDS: Heparin Injection (Vial) 5,000 UNIT/ML VIAL 5000 UNIT SC (22:07)
[2018-01-07] MEDS: Acetaminophen 325 MG Tablet 650 MG PO (22:17)
[2018-01-07 23:25] VITALS: BP 133/77; PULSE 97; RESP 18; TEMP 36.6; O2SAT 94
[2018-01-08] MEDS: oxyCODONE 5 MG Tablet PO ×4 (04:53→21:55)
[2018-01-08] MEDS: 0.9% Normal Saline 1,000 ML 75 ML IV ×2 (04:55→15:56)
[2018-01-08 05:19] LABS: Absolute Lymphocyte Count 0.72 X10^3/ul (0.83-4.51); Absolute Neutrophil Count 2.8 X10^3/uL (2.0-7.7); Basophil# 0.02 X10^3/uL; Basophil% 0.5 % (0-1); Eosinophil# 0.07 X10^3/uL; Eosinophils% 1.6 % (0-5); Hematocrit 32.3 % (40-54); Hemoglobin 10.5 g/dl (13.0-16.5); Lymphocyte # 0.72 X10^3/ul (4.0); Lymphocyte % 16.7 % (19-41); Mean Corp Hgb Conc 32.5 g/gl (32-36); Mean Corpuscular Hgb 28.5 pg (27.0-32.0); Mean Corpuscular Volume 87.5 fL (80-94); Mean Platelet Vol. 10.1 fl (6.2-12.0); Monocyte# 0.64 X10^3/uL; Monocyte% 14.8 % (0-10); Neutrophil # 2.84 X10^3/uL (2.7-7.7); Neutrophil % 65.7 % (47-70); Platelet Count 153 K/mm3 (150-450); RBC Distribution Width CV 16.8 % (11.6-14.6); RBC Distribution Width SD 52.6 fl (35.1-43.9); Red Blood Count 3.69 M/mm3 (4.6-6.2); White Blood Count 4.3 K/mm3 (4.4-11.0)
[2018-01-08 05:25] VITALS: BP 135/80; PULSE 92; RESP 16; TEMP 37; O2SAT 94
[2018-01-08 05:31] LABS: Anion Gap 8 (5-15); BUN 22 mg/dL (7-18); BUN/Creat Ratio 23.1 RATIO (10-20); Calcium,Total 8.8 mg/dL (8.5-10.1); Chloride 104 mmol/L (98-107); Creatinine, Serum 0.95 mg/dL (0.70-1.30); EST Glomerular Filtration Rate 82 mL/min (>60); Est Glom Filt Rate - Afr Amer 99 mL/min (>60); Estimated Creatinine Clearance 61.85 ml/min; Glucose 99 mg/dL (74-106); Potassium 4.4 mmol/L (3.5-5.1); Sodium Level 138 mmol/L (136-145)
[2018-01-08 05:36] LABS: POSITIVE COUNT NO; POSITIVE DIFFERENTIAL NO; POSITIVE MORPHOLOGY NO
[2018-01-08 07:21] VITALS: O2SAT 94
[2018-01-08 09:01] VITALS: BP 114/65; PULSE 103; RESP 18; TEMP 36.9; O2SAT 96
[2018-01-08] MEDS: Heparin Injection (Vial) 5,000 UNIT/ML VIAL 5000 UNIT SC ×2 (09:05→21:54)
[2018-01-08] MEDS: Polyethylene Glycol 3350 17 GM PACKET PO (09:05)
--- NOTE | 2018-01-08 09:23 | PCA ---
Pt brought this secretary administrative assistant copies of pt living will and power of insurance defense attorney paperwork. Placed copies on pt chart.
--- NOTE | 2018-01-08 10:28 | RAD_ITS ---
STUDY: X-RAY CHEST REASON FOR EXAM: Male, 77 years old. Fall with left rib fracture, rule out pneumothorax TECHNIQUE: PA and lateral views of the chest. COMPARISON: December 07, 2017 FINDINGS: No evidence of pneumothorax. Lungs are adequately inflated without acute airspace disease. Stable mild chronic interstitial changes are noted. There is no demonstrated pleural abnormality. Sternal cerclage wires are present from a prior sternotomy. Stable cardiomegaly. Stable left chest wall pacing device. Normal mediastinum and jerrica. Normal visualized pulmonary arteries. Normal visualized aortic arch and descending thoracic aorta. Normal visualized thoracic spine. No definite evidence of rib fracture on today's exam There is no demonstrated abnormality of the visualized soft tissue structures of the upper abdomen. RAD/Chest PA and Lateral IMPRESSION: No pneumothorax. No acute cardiopulmonary disease. Stable chronic findings Electronically Signed: Jasiel Olvera DO at 12:10 EDT Tel , Service support ,
--- NOTE | 2018-01-08 14:18 | CASEMGMT ---
Social Work Note SW in to confirm discharge plans. Pt's present in room. Pt and pt's agreeable to SNF at discharge and agreeable to referral being sent to [facility]. SW explained referral process and Medicare requirements for SNF. Pt would need to be at [facility] until Friday to meet three midnight requirements for SNF pending medically necessary. Pt and pt's state understanding. SW faxed referral to Jessica at [facility]. Plan: [facility] pending acceptance and three midnight stay if medically necessary Sarah Oconnell TECHNICIAN TERMINAL AND REPEATER, PHOTOGRAPHER
[2018-01-08 15:50] VITALS: BP 140/92; PULSE 103; RESP 18; TEMP 36.9; O2SAT 98
--- NOTE | 2018-01-08 15:52 | PCM.PN.HOSP ---
Subjective: Patient denies tachypnea, shortness of breath or respiratory distress. Mild pain at left lateral chest. CT pelvis and lower extremity reviewed. Imaging findings discussed with the patient. No fever. Pulse ox 98% on room air. Vitals/I&O's: Vital Signs Temp Pulse Resp BP Pulse Ox 98.4 F 103 H 18 140/92 H 98 01/08/18 15:50 01/08/18 15:50 01/08/18 15:50 01/08/18 15:50 01/08/18 15:50 Oxygen Delivery Method Room Air Weight: 184 lb 8 oz Body Mass Index (BMI) 28.9 Finger Stick Blood Glucose 235 Intake and Output for Last 24 Hours 01/06/18 01/07/18 01/08/18 23:59 23:59 23:59 Intake Total 2247 / 2247 Output Total 550 / 550 Balance 1697 / 1697 General: Alert, Oriented x3, Cooperative HEENT: Atraumatic, PERRLA, EOMI, Normocephalic Neck: Supple, No JVD, Negative Carotid Bruits Lungs: No rhonchi, No wheeze, No rales, Diminished - Bilaterally Cardiovascular: Regular rate, Regular Rhythm, Normal S1, Normal S2, No murmurs Abdomen: Bowel Sounds Present, Soft, Non Tender, Non-Distended Extremities: No edema, Capillary Refill Less than 3 Seconds Skin: No rashes, No breakdown Musculoskeletal: Arthritic Changes - Mainly at hip joints. Patient had right TKR, Tenderness - Mild deep tenderness present at the left pubic ramus. Neurological: Cranial nerves II-XII grossly intact Psych/Mental Status: Normal Affect, Appropriate Laboratory Results 01/08/18 04:55: WBC 4.3 L, RBC 3.69 L, Hgb 10.5 L, Hct 32.3 L, MCV 87.5, MCH 28.5, MCHC 32.5, RDW 16.8 H, RDW Differential 52.6 H, Plt Count 153, MPV 10.1, Immature Gran % (Auto) 0.700, Neut % (Auto) 65.7, Lymph % (Auto) 16.7 L, Mills % (Auto) 14.8 H, Eos % (Auto) 1.6, Baso % (Auto) 0.5, Absolute Neuts (auto) 2.8, Absolute Lymphs (auto) 0.72 L, Total Counted Not Reportable 01/08/18 04:55: Sodium 138, Potassium 4.4, Chloride 104, Carbon Dioxide 26.0, Anion Gap 8, BUN 22 H, Creatinine 0.95, Estim Creat Clear Calc 61.85, Est GFR (MDRD) Af Amer 99, Est GFR (MDRD) Non-Af 82, BUN/Creatinine Ratio 23.1 H, Glucose 99, Calcium 8.8 Current Medications Acetaminophen (Tylenol) 650 mg PO Q6H PRN PRN PRN Reason: Mild Pain (scale 0-3)/T>100.7 Last Admin: 01/07/18 22:17 Dose: 650 mg Al Hydroxide/Mg Hydroxide (Mylanta Ii) 30 ml PO Q6H PRN PRN PRN Reason: Gastric burning Bisacodyl (Dulcolax) 10 mg RECTAL DAILY PRN PRN PRN Reason: Constipation Docusate Sodium (Colace) 200 mg PO BID PRN PRN PRN Reason: Constipation Heparin Sodium (Porcine) (Heparin Na) 5,000 unit SC Q12 [facility] Last Admin: 01/08/18 09:05 Dose: 5,000 unit Sodium Chloride () 1,000 mls @ 75 mls/hr IV .[id number] [facility] Last Admin: 01/08/18 04:55 Dose: 75 mls/hr Morphine Sulfate () 2 - 4 mg IV Q4H PRN PRN PRN Reason: Severe Pain (pain scale 6-10) Morphine Sulfate () 2 - 4 mg IV Q4H PRN PRN PRN Reason: Severe Pain (pain scale 6-10) Ondansetron HCl (Zofran) 4 mg IV Q6H PRN PRN PRN Reason: NAUSEA Oxycodone HCl (Oxyir) 5 mg PO Q4H PRN PRN PRN Reason: Moderate Pain (pain scale 4-5) Last Admin: 01/08/18 10:52 Dose: 5 mg Polyethylene Glycol (Miralax) 17 gm PO DAILY [facility] Last Admin: 01/08/18 09:05 Dose: 17 gm Promethazine HCl (Phenergan) 12.5 mg IV Q6H PRN PRN PRN Reason: NAUSEA/VOMITING Sodium Chloride () 5 - 30 ml IV UD PRN PRN Reason: SALINE FLUSH Medical Necessity - Tobacco Use Smoking Status: Former smoker Assessment/Plan All Active Problems (Last Reviewed 12/22/17 @ 16:05 by ALEX Huber) Shortness of breath (Acute) detention (current) use of anticoagulants (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 Patient denies loss of consciousness or hitting her head. Patient complain of pain over left chest and left hip. EKG shows normal sinus rhythm with wide QRS with right bundle branch block. Patient has left subclavicular pacemaker. In ED, chest CT scan was done and shows nondisplaced and short of left-sided lateral fourth fifth and sixth rib fractures. No pneumothorax. Lungs are adequately inflated and clear. There was also mention of a spiculated soft tissue nodule in the right middle lobe and appears more spiculated than previous 2015. Left hip/pelvis x-ray shows fracture of superior ramus of left pelvis CT head does not show acute change. Patient is on Coumadin for A. fib and INR is 1.4. 1. Left sided lateral fourth, fifth and sixth rib fractures: Patient is being admitted to regular MedSurg floor. Incentive spirometry. Pain control. We will repeat chest x-ray PA and lateral was done on 01/08 and shows no pneumothorax, no acute cardiopulmonary disease. 2. Left pubic superior ramus and inferior ramus comminuted fracture extending into the right side of the pubis: Left pelvis/hip x-ray also reported as no hip fracture but hard to determine on imaging. Discussed with the orthopedic surgeon, Dr. Eb Kemp and he suggested MRI left pelvis and hip but could not be done as patient has pacemaker and difficulty in laying down with ribs fracture. CT left pelvis and left hip without contrast was done and reported as comminuted fracture in distal left superior pubic ramus extending into the right side of the pubis. Comminuted fracture of the left inferior pubic ramus. No other fractures seen. Intact symphysis pubis. No dislocation. PT and OT ordered. Pain control. Patient will need SNF placement. Follow-up with orthopedic surgeon, Dr. Eb Kemp as an outpatient. 3. Recent admission with acute combined hypoxic and hypercarbic respiratory leave secondary to pneumonia and acute heart failure with reduced ejection fraction:: Patient had recent echo which shows EF 40% with moderate concentric LVH, mild global left ventricular systolic dysfunction which was tolerated from previous EF 50% in 2016. Patient also has moderately dilated right ventricle, LA severely enlarged, right atrium severely enlarged. Mild to moderate MS with mild MR. Moderate pulmonary hypertension, RVSP 45 mmHg with severe 3+ TR we will continue his cardiac medications. 4. Cardiac conditions: Coronary atherosclerosis, paroxysmal A. 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 We will continue Coumadin and monitor INR daily. 5. Diabetes mellitus type 2: Accu-Chek before meals and at bedtime cover with NovoLog sliding scale. 6. Other comorbidities include history of duodenal ulcer, dyslipidemia, and obstructive sleep apnea: Positive pressure ventilation is contraindicated and therefore Do not put on CPAP. Home medication consideration. Multiple comorbidities complicates the present care and expect difficult and delay recovery DVT prophylaxis: On Coumadin. PT/INR today and adjust dose of Coumadin accordingly Home medication reconciliation done. Laboratory Results 01/07/18 08:20: PT 17.4 H, INR 1.4 01/07/18 08:40: WBC 5.9, RBC 3.94 L, Hgb 10.9 L, Hct 34.2 L, MCV 86.8, MCH 27.7, MCHC 31.9 L, RDW 16.8 H, RDW Differential 53.5 H, Plt Count 189, MPV 10.2, Immature Gran % (Auto) 0.200, Neut % (Auto) 75.9 H, Lymph % (Auto) 10.9 L, Mills % (Auto) 11.8 H, Eos % (Auto) 1.0, Baso % (Auto) 0.2, Absolute Neuts (auto) 4.4, Absolute Lymphs (auto) 0.64 L, Total Counted Not Reportable 01/07/18 08:40: Sodium 136, Potassium 4.5, Chloride 104, Carbon Dioxide 23.0, Anion Gap 9, BUN 24 H, Creatinine 1.18, Estim Creat Clear Calc 49.79, Est GFR (MDRD) Af Amer 77, Est GFR (MDRD) Non-Af 64, BUN/Creatinine Ratio 20.3 H, Glucose 184 H, Calcium 9.0, Troponin I < 0.015 Clinical Impression(s) from Imaging Studies Brain CT 01/07/18 08:16 IMPRESSION: Chronic involutional changes of the brain. Chest CT 01/07/18 08:16 IMPRESSION: 1. Nondisplaced and subtle left-sided lateral fourth, fifth, sixth rib fractures. No pneumothorax. 2. Lungs are adequately inflated and clear 3. Spiculated soft tissue nodule in the right middle lobe. This appears somewhat more spiculated than the exam in 2015. Malignancy is not fully excluded; consider PET/CT to further evaluate. 4. Decreased mediastinal lymphadenopathy Hip/Pelvis X-Ray 01/07/18 08:16 IMPRESSION: Left-sided pubic ramus fracture. No evidence of femoral neck fracture. Lower Extremity CT 01/07/18 13:27 IMPRESSION: Confirmation of fractures of the superior and inferior left pubic rami. Pelvis CT 01/07/18 13:27 IMPRESSION: Comminuted fractures are seen of the distal left superior pubic ramus extending into the right side of the pubis. Comminuted fractures are seen of the left inferior pubic ramus. No other acute abnormalities. Chest X-Ray 01/08/18 10:28 IMPRESSION: No pneumothorax. No acute cardiopulmonary disease. Stable chronic findings Code Visit Inpatient E&M: 57684 Subs Hosp L3
--- NOTE | 2018-01-08 16:18 | CASEMGMT ---
Social Work Note SW received call from Jessica at [facility] stating she is able to accept pt. Plan: [facility] Friday Sarah Oconnell INSECTICIDE SPRAYER, PLANT SUPERVISOR
[2018-01-08 18:23] LABS: International Normalized Ratio 1.4; Prothrombin Time (Protime)PT. 17.1 SECONDS (11.7-14.9)
[2018-01-08 21:45] VITALS: BP 143/90; PULSE 105; RESP 18; TEMP 37.4; O2SAT 94
[2018-01-08] MEDS: Acetaminophen 325 MG Tablet 650 MG PO (21:55)
[2018-01-08] MEDS: Carvedilol 6.25 MG Tablet PO (21:56)
[2018-01-09 03:00] VITALS: BP 118/75; PULSE 88; RESP 18; RESP 20; TEMP 36.9; O2SAT 95
[2018-01-09] MEDS: Acetaminophen 325 MG Tablet 650 MG PO ×2 (05:10→12:59)
[2018-01-09] MEDS: 0.9% Normal Saline 1,000 ML 75 ML IV ×2 (05:10→17:47)
[2018-01-09] MEDS: oxyCODONE 5 MG Tablet PO (05:10)
[2018-01-09 07:16] VITALS: BP 127/70; PULSE 84; RESP 22; TEMP 36.8; O2SAT 92
[2018-01-09 07:59] LABS: International Normalized Ratio 1.3; Prothrombin Time (Protime)PT. 16.6 SECONDS (11.7-14.9)
[2018-01-09] MEDS: Aspirin E.C. 81 MG Tablet PO (08:26)
[2018-01-09] MEDS: Cilostazol 50 MG Tablet 100 MG PO ×2 (08:26→16:08)
[2018-01-09] MEDS: Glimepiride 4 MG Tablet PO (08:26)
[2018-01-09] MEDS: Furosemide 40 MG Tablet PO (08:27)
[2018-01-09] MEDS: Polyethylene Glycol 3350 17 GM PACKET PO (08:27)
[2018-01-09] MEDS: Sertraline 100 MG Tablet PO (08:28)
[2018-01-09 09:52] VITALS: BP 117/69; PULSE 92; RESP 18; TEMP 37; O2SAT 92
[2018-01-09] MEDS: Heparin Injection (Vial) 5,000 UNIT/ML VIAL 5000 UNIT SC ×2 (10:02→21:29)
[2018-01-09] MEDS: Carvedilol 6.25 MG Tablet PO ×2 (10:02→21:29)
[2018-01-09] MEDS: Lisinopril 10 MG Tablet PO (10:02)
--- NOTE | 2018-01-09 11:22 | CASEMGMT ---
Social Work Note Per physician pt will be medically stable for discharge to [facility] tomorrow 01/10/2018. SW in to update pt and pt's Jessi present in room. Pt gave this worker permission to speak to his guest. SW informed pt and Jessi that [facility] has accepted and pt will be medically stable for discharge tomorrow. Jessi states that she will be out of town in the morning and their son Momo will be meeting pt at [facility] once pt discharges. Jessi states that Momo doesn't feel comfortable providing transportation for pt and is requesting for transportation to be set up in the morning. Jessi states that she prefer pt to be transported via cot. SW explained that typically transportation won't be set up until the doctor has completed discharge paperwork. SW explained that this worker can speak to physician and see if transportation can be arranged for tomorrow. SW spoke with Physician who states he will have discharge paperwork completed for pt tomorrow morning by transportation time. SW set up transportation through [facility] via cot for 10:00am on Friday01/10/2018 to [facility]. SW updated pt and pt's Jessi on this. Jessi states that she will call pt's son Momo to update him on transportation time. Jessi provided Momo's number [phone]. Transportation form on chart. Green sheet on chart. Physician updated on transportation time tomorrow. [facility] completed in [place]. Original on pt's chart. Plan: Pt to discharge to [facility] tomorrow with [facility] transporting at 10:00am. Sarah Oconnell VETERANS SERVICE OFFICER, AGENTS' RECORDS CLERK
[2018-01-09 12:49] VITALS: BP 127/81; PULSE 91; RESP 22; TEMP 36.4; O2SAT 94
--- NOTE | 2018-01-09 15:02 | PCM.PN.HOSP ---
Subjective: Patient denies shortness of breath, left-sided chest pain or pubic pain. Vitals/I&O's: Vital Signs Temp Pulse Resp BP Pulse Ox 97.6 F L 91 22 H 127/81 H 94 01/09/18 12:49 01/09/18 12:49 01/09/18 12:49 01/09/18 12:49 01/09/18 12:49 Oxygen Flow Rate (L/min) 2 Oxygen Delivery Method Room Air Weight: 184 lb 8 oz Body Mass Index (BMI) 28.9 Finger Stick Blood Glucose 235 Intake and Output for Last 24 Hours 01/07/18 01/08/18 01/09/18 23:59 23:59 23:59 Intake Total 3402 / 3402 909 / 909 Output Total 1300 / 1300 300 / 300 Balance 2102 / 2102 609 / 609 General: Alert, Oriented x3, Cooperative HEENT: Atraumatic, PERRLA, EOMI, Normocephalic Neck: Supple, No JVD, Negative Carotid Bruits Lungs: Clear to auscultation, No rhonchi, No wheeze, No rales, Diminished - On left side Cardiovascular: Regular rate, Regular Rhythm, Normal S1, Normal S2, No murmurs Abdomen: Bowel Sounds Present, Soft, Non Tender, Non-Distended Extremities: No edema, Capillary Refill Less than 3 Seconds Skin: No rashes, No breakdown Musculoskeletal: No Tenderness to Palpation of Joints or Extremities Neurological: Cranial nerves II-XII grossly intact Psych/Mental Status: Normal Affect, Appropriate Laboratory Results 01/08/18 17:31: PT 17.1 H, INR 1.4 01/09/18 07:18: PT 16.6 H, INR 1.3 Current Medications Acetaminophen (Tylenol) 650 mg PO Q6H PRN PRN PRN Reason: Mild Pain (scale 0-3)/T>100.7 Last Admin: 01/09/18 12:59 Dose: 650 mg Al Hydroxide/Mg Hydroxide (Mylanta Ii) 30 ml PO Q6H PRN PRN PRN Reason: Gastric burning Albuterol Sulfate (Ventolin Aerosols) 2.5 mg INHALATION Q4H PRN PRN PRN Reason: SHORTNESS OF BREATH [facility] ([facility]) [facility] Last Admin: 01/09/18 08:26 Dose: 81 mg Bisacodyl (Dulcolax) 10 mg RECTAL DAILY PRN PRN PRN Reason: Constipation Carvedilol (Coreg) 6.25 mg PO BID [facility] Last Admin: 01/09/18 10:02 Dose: 6.25 mg Cilostazol (Pletal) 100 mg PO BIDAC [facility] Last Admin: 01/09/18 08:26 Dose: 100 mg Docusate Sodium (Colace) 200 mg PO BID PRN PRN PRN Reason: Constipation Furosemide (Lasix) 40 mg PO DAILY [facility] Last Admin: 01/09/18 08:27 Dose: 40 mg Glimepiride (Amaryl) 4 mg PO DAILY@0800 [facility] Last Admin: 01/09/18 08:26 Dose: 4 mg Heparin Sodium (Porcine) (Heparin Na) 5,000 unit SC Q12 [facility] Last Admin: 01/09/18 10:02 Dose: 5,000 unit Sodium Chloride () 1,000 mls @ 75 mls/hr IV .[id number] [facility] Last Admin: 01/09/18 05:10 Dose: 75 mls/hr Lisinopril (Zestril) 10 mg PO DAILY [facility] Last Admin: 01/09/18 10:02 Dose: 10 mg Morphine Sulfate () 2 - 4 mg IV Q4H PRN PRN PRN Reason: Severe Pain (pain scale 6-10) Morphine Sulfate () 2 - 4 mg IV Q4H PRN PRN PRN Reason: Severe Pain (pain scale 6-10) Ondansetron HCl (Zofran) 4 mg IV Q6H PRN PRN PRN Reason: NAUSEA Oxycodone HCl (Oxyir) 5 mg PO Q4H PRN PRN PRN Reason: Moderate Pain (pain scale 4-5) Last Admin: 01/09/18 05:10 Dose: 5 mg Polyethylene Glycol (Miralax) 17 gm PO DAILY [facility] Last Admin: 01/09/18 08:27 Dose: 17 gm Potassium Chloride (K-Dur) 10 meq PO DAILY [facility] Last Admin: 01/09/18 08:26 Dose: 10 meq Promethazine HCl (Phenergan) 12.5 mg IV Q6H PRN PRN PRN Reason: NAUSEA/VOMITING Sertraline HCl (Zoloft) 100 mg PO DAILY [facility] Last Admin: 10/05/18 08:28 Dose: 100 mg Sodium Chloride () 5 - 30 ml IV UD PRN PRN Reason: SALINE FLUSH Warfarin Sodium (Coumadin (Pbkc)) 5 mg PO SuMoTuSa@1700 SILVA; Protocol Warfarin Sodium (Coumadin (Pbkc)) 7.5 mg PO WeThFr@1700 [facility] Medical Necessity - Tobacco Use Smoking Status: Former smoker Assessment/Plan All Active Problems (Last Reviewed 12/22/17 @ 16:05 by Brissa Santoro NP-C) 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 Patient denies loss of consciousness or hitting her head. Patient complain of pain over left chest and left hip. EKG shows normal sinus rhythm with wide QRS with right bundle branch block. Patient has left subclavicular pacemaker. In ED, chest CT scan was done and shows nondisplaced and short of left-sided lateral fourth fifth and sixth rib fractures. No pneumothorax. Lungs are adequately inflated and clear. There was also mention of a spiculated soft tissue nodule in the right middle lobe and appears more spiculated than previous 2015. Left hip/pelvis x-ray shows fracture of superior ramus of left pelvis CT head does not show acute change. Patient is on Coumadin for A. fib and INR is 1.4. 1. Left sided lateral fourth, fifth and sixth rib fractures: Patient is being admitted to regular MedSurg floor. Incentive spirometry. Pain control. Repeat chest x-ray PA and lateral was done on 01/08 and shows no pneumothorax, no acute cardiopulmonary disease. 2. Left pubic superior ramus and inferior ramus comminuted fracture extending into the right side of the pubis: Left pelvis/hip x-ray also reported as no hip fracture but hard to determine on x-ray imaging. Discussed with the orthopedic surgeon, Dr. Eb Kemp and he suggested MRI left pelvis and hip but could not be done as patient has pacemaker and difficulty in laying down with ribs fracture. CT left pelvis and left hip without contrast was done and reported as comminuted fracture in distal left superior pubic ramus extending into the right side of the pubis. Comminuted fracture of the left inferior pubic ramus. No other fractures seen. Intact symphysis pubis. No dislocation. PT and OT ordered. Pain control. Patient will need SNF placement. Follow-up with orthopedic surgeon, Dr. Eb Kemp as an outpatient. 3. Recent admission with acute combined hypoxic and hypercarbic respiratory leave secondary to pneumonia and acute heart failure with reduced ejection fraction:: Patient had recent echo which shows EF 40% with moderate concentric LVH, mild global left ventricular systolic dysfunction which was tolerated from previous EF 50% in 2016. Patient also has moderately dilated right ventricle, LA severely enlarged, right atrium severely enlarged. Mild to moderate MS with mild MR. Moderate pulmonary hypertension, RVSP 45 mmHg with severe 3+ TR we will continue his cardiac medications. 4. Cardiac conditions: Coronary atherosclerosis, paroxysmal A. 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 We will continue Coumadin and INR 1.3. 5. Diabetes mellitus type 2: Accu-Chek before meals and at bedtime cover with NovoLog sliding scale. 6. Other comorbidities include history of duodenal ulcer, dyslipidemia, and obstructive sleep apnea: Positive pressure ventilation is contraindicated and therefore Do not put on CPAP. Home medication consideration. Multiple comorbidities complicates the present care and expect difficult and delay recovery DVT prophylaxis: On Coumadin. PT/INR today and adjust dose of Coumadin accordingly Home medication reconciliation done. Laboratory Results 01/08/18 17:31: PT 17.1 H, INR 1.4 01/09/18 07:18: PT 16.6 H, INR 1.3 Clinical Impression(s) from Imaging Studies Brain CT 01/07/18 08:16 IMPRESSION: Chronic involutional changes of the brain. Chest CT 01/07/18 08:16 IMPRESSION: 1. Nondisplaced and subtle left-sided lateral fourth, fifth, sixth rib fractures. No pneumothorax. 2. Lungs are adequately inflated and clear 3. Spiculated soft tissue nodule in the right middle lobe. This appears somewhat more spiculated than the exam in 2015. Malignancy is not fully excluded; consider PET/CT to further evaluate. 4. Decreased mediastinal lymphadenopathy Hip/Pelvis X-Ray 01/07/18 08:16 IMPRESSION: Left-sided pubic ramus fracture. No evidence of femoral neck fracture. Lower Extremity CT 01/07/18 13:27 IMPRESSION: Confirmation of fractures of the superior and inferior left pubic rami. Pelvis CT 01/07/18 13:27 IMPRESSION: Comminuted fractures are seen of the distal left superior pubic ramus extending into the right side of the pubis. Comminuted fractures are seen of the left inferior pubic ramus. No other acute abnormalities. Chest X-Ray 01/08/18 10:28 IMPRESSION: No pneumothorax. No acute cardiopulmonary disease. Stable chronic findings Code Visit Inpatient E&M: 10119 Subs Hosp L3
--- NOTE | 2018-01-09 15:16 | PN_ITS ---
Subjective: Patient denies shortness of breath, left-sided chest pain or pubic pain. Vitals/I&O's: Vital Signs Temp Pulse Resp BP Pulse Ox 97.6 F L 91 22 H 127/81 H 94 01/09/18 12:49 01/09/18 12:49 01/09/18 12:49 01/09/18 12:49 01/09/18 12:49 Oxygen Flow Rate (L/min) 2 Oxygen Delivery Method Room Air Weight: 184 lb 8 oz Body Mass Index (BMI) 28.9 Finger Stick Blood Glucose 235 Intake and Output for Last 24 Hours 01/07/18 01/08/18 01/09/18 23:59 23:59 23:59 Intake Total 3402 / 3402 909 / 909 Output Total 1300 / 1300 300 / 300 Balance 2102 / 2102 609 / 609 General: Alert, Oriented x3, Cooperative HEENT: Atraumatic, PERRLA, EOMI, Normocephalic Neck: Supple, No JVD, Negative Carotid Bruits Lungs: Clear to auscultation, No rhonchi, No wheeze, No rales, Diminished - On left side Cardiovascular: Regular rate, Regular Rhythm, Normal S1, Normal S2, No murmurs Abdomen: Bowel Sounds Present, Soft, Non Tender, Non-Distended Extremities: No edema, Capillary Refill Less than 3 Seconds Skin: No rashes, No breakdown Musculoskeletal: No Tenderness to Palpation of Joints or Extremities Neurological: Cranial nerves II-XII grossly intact Psych/Mental Status: Normal Affect, Appropriate Laboratory Results 01/08/18 17:31: PT 17.1 H, INR 1.4 01/09/18 07:18: PT 16.6 H, INR 1.3 Current Medications Acetaminophen (Tylenol) 650 mg PO Q6H PRN PRN PRN Reason: Mild Pain (scale 0-3)/T>100.7 Last Admin: 01/09/18 12:59 Dose: 650 mg Al Hydroxide/Mg Hydroxide (Mylanta Ii) 30 ml PO Q6H PRN PRN PRN Reason: Gastric burning Albuterol Sulfate (Ventolin Aerosols) 2.5 mg INHALATION Q4H PRN PRN PRN Reason: SHORTNESS OF BREATH [facility]) [facility] Last Admin: 01/09/18 08:26 Dose: 81 mg Bisacodyl (Dulcolax) 10 mg RECTAL DAILY PRN PRN PRN Reason: Constipation Carvedilol (Coreg) 6.25 mg PO BID [facility] Last Admin: 01/09/18 10:02 Dose: 6.25 mg Cilostazol (Pletal) 100 mg PO BIDAC [facility] Last Admin: 01/09/18 08:26 Dose: 100 mg Docusate Sodium (Colace) 200 mg PO BID PRN PRN PRN Reason: Constipation Furosemide (Lasix) 40 mg PO DAILY [facility] Last Admin: 01/09/18 08:27 Dose: 40 mg Glimepiride (Amaryl) 4 mg PO DAILY@0800 [facility] Last Admin: 01/09/18 08:26 Dose: 4 mg Heparin Sodium (Porcine) (Heparin Na) 5,000 unit SC Q12 [facility] Last Admin: 01/09/18 10:02 Dose: 5,000 unit Sodium Chloride () 1,000 mls @ 75 mls/hr IV .[id number] [facility] Last Admin: 01/09/18 05:10 Dose: 75 mls/hr Lisinopril (Zestril) 10 mg PO DAILY [facility] Last Admin: 01/09/18 10:02 Dose: 10 mg Morphine Sulfate () 2 - 4 mg IV Q4H PRN PRN PRN Reason: Severe Pain (pain scale 6-10) Morphine Sulfate () 2 - 4 mg IV Q4H PRN PRN PRN Reason: Severe Pain (pain scale 6-10) Ondansetron HCl (Zofran) 4 mg IV Q6H PRN PRN PRN Reason: NAUSEA Oxycodone HCl (Oxyir) 5 mg PO Q4H PRN PRN PRN Reason: Moderate Pain (pain scale 4-5) Last Admin: 01/09/18 05:10 Dose: 5 mg Polyethylene Glycol (Miralax) 17 gm PO DAILY [facility] Last Admin: 01/09/18 08:27 Dose: 17 gm Potassium Chloride (K-Dur) 10 meq PO DAILY [facility] Last Admin: 01/09/18 08:26 Dose: 10 meq Promethazine HCl (Phenergan) 12.5 mg IV Q6H PRN PRN PRN Reason: NAUSEA/VOMITING Sertraline HCl (Zoloft) 100 mg PO DAILY [facility] Last Admin: 10/05/18 08:28 Dose: 100 mg Sodium Chloride () 5 - 30 ml IV UD PRN PRN Reason: SALINE FLUSH Warfarin Sodium (Coumadin (Pbkc)) 5 mg PO SuMoTuSa@1700 SILVA; Protocol Warfarin Sodium (Coumadin (Pbkc)) 7.5 mg PO WeThFr@1700 [facility] Medical Necessity - Tobacco Use Smoking Status: Former smoker Assessment/Plan All Active Problems (Last Reviewed 12/22/17 @ 16:05 by Brissa Santoro NP-C) 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 Patient denies loss of consciousness or hitting her head. Patient complain of pain over left chest and left hip. EKG shows normal sinus rhythm with wide QRS with right bundle branch block. Patient has left subclavicular pacemaker. In ED, chest CT scan was done and shows nondisplaced and short of left-sided lateral fourth fifth and sixth rib fractures. No pneumothorax. Lungs are adequately inflated and clear. There was also mention of a spiculated soft tissue nodule in the right middle lobe and appears more spiculated than previous 2015. Left hip/pelvis x-ray shows fracture of superior ramus of left pelvis CT head does not show acute change. Patient is on Coumadin for A. fib and INR is 1.4. 1. Left sided lateral fourth, fifth and sixth rib fractures: Patient is being admitted to regular MedSurg floor. Incentive spirometry. Pain control. Repeat chest x-ray PA and lateral was done on 01/08 and shows no pneumothorax, no acute cardiopulmonary disease. 2. Left pubic superior ramus and inferior ramus comminuted fracture extending into the right side of the pubis: Left pelvis/hip x-ray also reported as no hip fracture but hard to determine on x-ray imaging. Discussed with the orthopedic surgeon, Dr. Eb Kemp and he suggested MRI left pelvis and hip but could not be done as patient has pacemaker and difficulty in laying down with ribs fracture. CT left pelvis and left hip without contrast was done and reported as comminuted fracture in distal left superior pubic ramus extending into the right side of the pubis. Comminuted fracture of the left inferior pubic ramus. No other fractures seen. Intact symphysis pubis. No dislocation. PT and OT ordered. Pain control. Patient will need SNF placement. Follow-up with orthopedic surgeon, Dr. Eb Kemp as an outpatient. 3. Recent admission with acute combined hypoxic and hypercarbic respiratory leave secondary to pneumonia and acute heart failure with reduced ejection fraction:: Patient had recent echo which shows EF 40% with moderate concentric LVH, mild global left ventricular systolic dysfunction which was tolerated from previous EF 50% in 2016. Patient also has moderately dilated right ventricle, LA severely enlarged, right atrium severely enlarged. Mild to moderate MS with mild MR. Moderate pulmonary hypertension, RVSP 45 mmHg with severe 3+ TR we will continue his cardiac medications. 4. Cardiac conditions: Coronary atherosclerosis, paroxysmal A. 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 We will continue Coumadin and INR 1.3. 5. Diabetes mellitus type 2: Accu-Chek before meals and at bedtime cover with NovoLog sliding scale. 6. Other comorbidities include history of duodenal ulcer, dyslipidemia, and obstructive sleep apnea: Positive pressure ventilation is contraindicated and therefore Do not put on CPAP. Home medication consideration. Multiple comorbidities complicates the present care and expect difficult and delay recovery DVT prophylaxis: On Coumadin. PT/INR today and adjust dose of Coumadin accordingly Home medication reconciliation done. Laboratory Results 01/08/18 17:31: PT 17.1 H, INR 1.4 01/09/18 07:18: PT 16.6 H, INR 1.3 Clinical Impression(s) from Imaging Studies Brain CT 01/07/18 08:16 IMPRESSION: Chronic involutional changes of the brain. Chest CT 01/07/18 08:16 IMPRESSION: 1. Nondisplaced and subtle left-sided lateral fourth, fifth, sixth rib fractures. No pneumothorax. 2. Lungs are adequately inflated and clear 3. Spiculated soft tissue nodule in the right middle lobe. This appears somewhat more spiculated than the exam in 2015. Malignancy is not fully excluded; consider PET/CT to further evaluate. 4. Decreased mediastinal lymphadenopathy Hip/Pelvis X-Ray 01/07/18 08:16 IMPRESSION: Left-sided pubic ramus fracture. No evidence of femoral neck fracture. Lower Extremity CT 01/07/18 13:27 IMPRESSION: Confirmation of fractures of the superior and inferior left pubic rami. Pelvis CT 01/07/18 13:27 IMPRESSION: Comminuted fractures are seen of the distal left superior pubic ramus extending into the right side of the pubis. Comminuted fractures are seen of the left inferior pubic ramus. No other acute abnormalities. Chest X-Ray 01/08/18 10:28 IMPRESSION: No pneumothorax. No acute cardiopulmonary disease. Stable chronic findings Code Visit Inpatient E&M: 77545 Subs Hosp L3
[2018-01-09 16:16] LABS: Bedside Glucose 319 mg/dL (70-110)
[2018-01-09 17:15] VITALS: BP 139/72; PULSE 94; RESP 16; TEMP 36.4; O2SAT 95
[2018-01-09] MEDS: Insulin Lispro 100 UNIT/ML INSULN.PEN 8 UNIT SC (18:28)
[2018-01-09 21:23] VITALS: BP 141/81; PULSE 102; RESP 16; TEMP 37.1; O2SAT 92
[2018-01-09] MEDS: Insulin Lispro 100 UNIT/ML INSULN.PEN SQ (21:29)
[2018-01-09 22:25] LABS: Bedside Glucose 262 mg/dL (70-110)
[2018-01-10] MEDS: oxyCODONE 5 MG Tablet PO (02:39)
[2018-01-10 02:47] VITALS: BP 112/71; PULSE 89; RESP 16; TEMP 37.1; O2SAT 95
[2018-01-10] MEDS: 0.9% Normal Saline 1,000 ML 75 ML IV (05:39)
[2018-01-10] MEDS: Acetaminophen 325 MG Tablet 650 MG PO (05:44)
[2018-01-10 06:45] LABS: Bedside Glucose 84 mg/dL (70-110)
[2018-01-10 07:05] VITALS: O2SAT 92
[2018-01-10] MEDS: Glimepiride 4 MG Tablet PO (07:54)
[2018-01-10] MEDS: Cilostazol 50 MG Tablet 100 MG PO (07:54)
[2018-01-10] MEDS: Aspirin E.C. 81 MG Tablet PO (07:55)
[2018-01-10 08:05] LABS: International Normalized Ratio 1.3
[2018-01-10 08:08] LABS: Absolute Lymphocyte Count 0.62 X10^3/ul (0.83-4.51); Absolute Neutrophil Count 3.6 X10^3/uL (2.0-7.7); Basophil# 0.01 X10^3/uL; Basophil% 0.2 % (0-1); Eosinophil# 0.06 X10^3/uL; Eosinophils% 1.3 % (0-5); Hemoglobin 10.1 g/dl (13.0-16.5); Lymphocyte # 0.62 X10^3/ul (4.0); Mean Corp Hgb Conc 32.6 g/gl (32-36); Mean Corpuscular Hgb 28.2 pg (27.0-32.0); Mean Corpuscular Volume 86.6 fL (80-94); Mean Platelet Vol. 10.8 fl (6.2-12.0); Monocyte# 0.46 X10^3/uL; Monocyte% 9.6 % (0-10); Neutrophil # 3.61 X10^3/uL (2.7-7.7); Neutrophil % 75.5 % (47-70); Platelet Count 165 K/mm3 (150-450); RBC Distribution Width CV 16.6 % (11.6-14.6); RBC Distribution Width SD 51.1 fl (35.1-43.9); Red Blood Count 3.58 M/mm3 (4.6-6.2); White Blood Count 4.8 K/mm3 (4.4-11.0)
[2018-01-10 08:27] LABS: POSITIVE COUNT NO; POSITIVE DIFFERENTIAL NO; POSITIVE MORPHOLOGY NO
--- NOTE | 2018-01-10 09:10 | PCM.TXEXTCAR ---
- Diet 01/07/18 12:22 Diet: Cardiac/Low Cholesterol Type of Dietary Supplement:: Ensure Complete Is pt able to select menu?: Yes - Routine Orders/Code Status Suppository Type: Dulcolax 10mg Suppository Frequency: Daily PRN Routine Lab Work: CBC - Weekly, BMP - Weekly on diuretics and lisinopril, INR - daily until INR therapeutic. Adjust the dose of Coumadin with PCP. - Therapies Extremity Affected:: Bilateral Lower Physical Therapy: Eval and Treat Occupational Therapy: Eval and Treat Speech Therapy: Eval and Treat - Allergies/Procedures Done in Hospital Allergies/Adverse Reactions: Allergies No Known Allergies Allergy (Verified 01/07/18 07:59) - Type of Care/Length of Stay Estimated LOS: Convalescent Care Less Than 30 days Type of Care Needed: Skilled Rehab Potential: Good Prognosis: Good - Additional Orders/Day of Discharge Day of Discharge: 01/10/18 - Follow Up Care Primary Care Physician: Lei Funes DO [Primary Care Provider] - Please follow up with your Primary Care Physician in: in 1-2 weeks Please Follow Up With: Eb Kemp MD When: in 2 Weeks for pubic bones fracture
--- NOTE | 2018-01-10 09:10 | DS.PCM_ITS ---
Discharge Date and Diagnosis Date of Admission: 01/07/18 Date of Discharge: 01/10/18 - Primary Discharge Diagnosis 1. Left sided lateral fourth, fifth and sixth rib fractures; no pneumothorax: 2. Left pubic superior ramus and inferior ramus comminuted fracture extending into the right side of the pubis; due to fall complicated with underlying osteoporosis. - Secondary Discharge Diagnosis Chronic Problems (Last Reviewed 12/22/17 @ 16:05 by Brissa Santoro NP-C) Paroxysmal atrial fibrillation (Chronic) S/P MAZE procedure in 2016; Sick sinus syndrome (Chronic) CLEMENT (obstructive sleep apnea) (Chronic) Congestive heart failure, unspecified (Chronic) Other secondary pulmonary hypertension (Chronic) Nonrheumatic mitral valve regurgitation (Chronic) Nonrheumatic aortic (valve) stenosis (Chronic) Nonrheumatic aortic (valve) insufficiency (Chronic) Carotid artery stenosis (Chronic) Chronic atrial fibrillation (Chronic) Atherosclerotic heart disease of [place] coronary artery without angina pectoris (Chronic) History of maze procedure (Chronic) mitral valve repair and MAZE procedure 01/24/[address] Tolliver @ [facility] UGIB (upper gastrointestinal bleed) (Chronic) Duodenal ulcer (Chronic) Physical debility (Chronic) Supratherapeutic INR (Chronic) Hypokalemia (Chronic) Pancytopenia (Chronic) Symptomatic anemia (Chronic) Sepsis (Chronic) Hyperlipidemia (Chronic) Status post placement of cardiac pacemaker (Chronic) Permanent pacemaker placement 02/02/16 @ [facility] Status post mitral valve repair (Chronic) mitral valve repair and MAZE procedure 01/24/[address] Tolliver @ [facility] 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) Aortic Valve Replacement w/ 23-mm Jay-Aragon pericardial valve Atrial fibrillation (Chronic) DM2 (diabetes mellitus, type 2) (Chronic) Hospital Course and Treatment Operations: None Summary of Care Provided: [] The patient is a 77 year old M with multiple comorbidities including heart failure with reduced ejection fraction was brought into ER after he fell down yesterday night when he tripped and fell on the concrete while trying to pull trash can. Patient denies loss of consciousness or hitting her head. Patient complain of pain over left chest and left hip. EKG shows normal sinus rhythm with wide QRS with right bundle branch block. Patient has left subclavicular pacemaker. In ED, chest CT scan was done and shows nondisplaced and short of left-sided lateral fourth fifth and sixth rib fractures. No pneumothorax. Lungs are adequately inflated and clear. There was also mention of a spiculated soft tissue nodule in the right middle lobe and appears more spiculated than previous 2015. Left hip/pelvis x-ray shows fracture of superior ramus of left pelvis CT head does not show acute change. Patient is on Coumadin for A. fib and INR is 1.4. [facility] Patient was seen and examined today. No chest pain/shortness of breath. No fever or chills. Patient sitting on the recliner. General: Alert, Oriented x3, Cooperative HEENT: Atraumatic, PERRLA, EOMI, Normocephalic Neck: Supple, No JVD, Negative Carotid Bruits Lungs: Clear to auscultation, No rhonchi, No wheeze, No rales, air entry equal bilaterally. No superficial tenderness on ribs, on left side. Cardiovascular: Regular rate, Regular Rhythm, Normal S1, Normal S2, No murmurs Abdomen: Bowel Sounds Present, Soft, Non Tender, Non-Distended Extremities: No edema, Capillary Refill Less than 3 Seconds Skin: No rashes, No breakdown Musculoskeletal: No Tenderness to Palpation of Joints or Extremities Neurological: Cranial nerves II-XII grossly intact Psych/Mental Status: Normal Affect, Appropriate 1. Left sided lateral fourth, fifth and sixth rib fractures; no pneumothorax: [facility]. Incentive spirometry. Pain control. Repeat chest x-ray PA and lateral was done on 01/08 and shows no pneumothorax, no acute cardiopulmonary disease. Can continue CPAP at night. 2. Left pubic superior ramus and inferior ramus comminuted fracture extending into the right side of the pubis: Left pelvis/hip x-ray also reported as no hip fracture but hard to determine on x-ray imaging. Discussed with the orthopedic surgeon, Dr. Eb Kemp and he suggested MRI left pelvis and hip but could not be done as patient has pacemaker and difficulty in laying down with ribs fracture. CT left pelvis and left hip without contrast was done and reported as comminuted fracture in distal left superior pubic ramus extending into the right side of the pubis. Comminuted fracture of the left inferior pubic ramus. No other fractures seen. Intact symphysis pubis. No dislocation. PT and OT was evaluated. Pain control. Follow-up with orthopedic surgeon, Dr. Eb Kemp as an outpatient. 3. Recent admission with acute combined hypoxic and hypercarbic respiratory leave secondary to pneumonia and acute heart failure with reduced ejection fraction:: Patient had recent echo which shows EF 40% with moderate concentric LVH, mild global left ventricular systolic dysfunction which was tolerated from previous EF 50% in 2016. Patient also has moderately dilated right ventricle, LA severely enlarged, right atrium severely enlarged. Mild to moderate MS with mild MR. Moderate pulmonary hypertension, RVSP 45 mmHg with severe 3+ TR. continue his cardiac medications. 4. Cardiac conditions: Coronary atherosclerosis, paroxysmal A. 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 PT/INR continue to be low even on 10 mg Coumadin. Again increased to 7.5 mg daily. Follow-up INR daily. Follow with PCP to adjust the dose of Coumadin accordingly. 5. Diabetes mellitus type 2: Accu-Chek before meals and at bedtime cover with NovoLog sliding scale. On glimepiride 4 mg daily. If blood sugar remains high in the evening or dinnertime can put on glimepiride 2 mg with dinner. 6. Other comorbidities include history of duodenal ulcer, dyslipidemia, and obstructive sleep apnea: Positive pressure ventilation is contraindicated and therefore Discharge medication reconciliation done. Discharge follow-up instructions completed. Patient is being discharged to SNF Discharge medications discussed with the patient. Follow-up labs discussed with the patient. Total time spent, exact 35 minutes on discharge meds reconciliation, examination, review of imaging and blood test and discussion with the patient on follow-up instructions. Home Medications: Medications to take at Discharge aspirin 81 mg tablet,delayed release 81 mg PO QDAY 07/24/17 sertraline 100 mg tablet 100 mg PO QDAY 30 Days #30 tab 07/24/17 Cilostazol [Pletal] 100 mg PO BID 12/07/17 Albuterol Inhaler [Ventolin Hfa] 1 - 2 puff INHALATION Q4H PRN PRN #1 inhaler 12/11/17 furosemide 40 mg tablet 40 mg PO DAILY 12/22/17 Carvedilol [Coreg] 6.25 mg PO BID 01/07/18 Glimepiride [Amaryl] 4 mg PO DAILY@0800 01/07/18 Lisinopril [Zestril] 10 mg PO DAILY 01/07/18 Metformin HCl [Glucophage] 500 mg PO BIDCM 01/07/18 Pioglitazone [Actos] 30 mg PO DAILY@0800 01/07/18 Potassium Chloride [K-Dur] 10 meq PO DAILY 01/07/18 Warfarin [Coumadin] 7.5 mg PO WETHFR 01/07/18 Acetaminophen [Tylenol Tablet] 650 mg PO Q6H PRN PRN tablet 01/09/18 Docusate Sodium [Colace] 200 mg PO BID PRN PRN capsule 01/09/18 Polyethylene Glycol 3350 [Miralax] 17 gm PO DAILY PRN PRN packet 01/09/18 traMADol [Ultram] 50 mg PO Q6H PRN PRN #7 tab 01/09/18 Insulin Lispro [Humalog KwikPen] See Protocol SQ ACHS insuln.pen 01/10/18 Warfarin [Coumadin] 7.5 mg PO [place]OT[place] #0 01/10/18 Following Prescrptions Were Given to Patient: traMADol [Ultram] 50 mg PO Q6H PRN PRN #7 tab PRN Reason: Severe Pain (-01/14) Other Amb Orders: Prothrombin Time w/INR Time Frame: 01/11/18, Location: Laboratory Primary Care Physician: Lei Funes DO [Primary Care Provider] - Please follow up with your Primary Care Physician in: in 1-2 weeks Please Follow Up With: Eb Kemp MD When: in 2 Weeks for pubic bones fracture Medical Necessity - Tobacco Use Smoking Status: Former smoker Meaningful Use Info Meaningful Use Diagnoses (Choose all that apply): None applicable Code Visit Inpatient E&M: 90308 Disch Hosp
--- NOTE | 2018-01-10 09:14 | PCA ---
This departmental secretary faxed transfer to extended care form, RX's and updated med list to [facility] ([phone])
[2018-01-10] MEDS: Lisinopril 10 MG Tablet PO (09:16)
[2018-01-10] MEDS: Polyethylene Glycol 3350 17 GM PACKET PO (09:17)
[2018-01-10] MEDS: Carvedilol 6.25 MG Tablet PO (09:17)
[2018-01-10] MEDS: Furosemide 40 MG Tablet PO (09:17)
[2018-01-10] MEDS: Heparin Injection (Vial) 5,000 UNIT/ML VIAL 5000 UNIT SC (09:17)
[2018-01-10] MEDS: Sertraline 100 MG Tablet PO (09:18)
[2018-01-10 09:45] VITALS: BP 121/71; PULSE 90; RESP 18; TEMP 37.2; O2SAT 98
[2018-01-10 09:57] LABS: Hemoglobin A1c 7.5 % (4.2-6.3)
--- NOTE | 2018-01-10 10:07 | CASEMGMT ---
Social Work Note WILLEM Marcos updated this worker that pt's son is going to transport pt to [facility]. SW placed a call to [facility] and cancelled transportation. Sarah Oconnell SLUDGE FILTRATION ATTENDANT, SUPERVISOR RECEIVING AND PROCESSING
[2018-01-10 10:25] VITALS: BP 128/70; PULSE 70; RESP 18; TEMP 36.8; O2SAT 98
== END 2018-01-10 10:26 | disposition skilled nursing facility (03) | DRG 184 ==
LOC: ED 08:36 → MS3 10:24
PROVIDERS: Admitting Provider Internal Medicine; Emergency Provider Emergency Medicine; Family Provider Family Medicine; PCP Family Medicine; Visit Provider Internal Medicine
DX: S22.42XA Multiple fractures of ribs, left side, initial encounter for closed fracture (principal); S32.512A Fracture of superior rim of left pubis, initial encounter for closed fracture; I50.22 Chronic systolic (congestive) heart failure; S32.592A Other specified fracture of left pubis, initial encounter for closed fracture; W10.1XXA Fall (on)(from) sidewalk curb, initial encounter; Y92.018 Other place in single-family (private) house as the place of occurrence of the external cause; E11.9 Type 2 diabetes mellitus without complications; I25.10 Atherosclerotic heart disease of native coronary artery without angina pectoris; I48.0 Paroxysmal atrial fibrillation; E78.5 Hyperlipidemia, unspecified; G47.33 Obstructive sleep apnea (adult) (pediatric); M81.0 Age-related osteoporosis without current pathological fracture; Z95.3 Presence of xenogenic heart valve; I27.20 Pulmonary hypertension, unspecified; Z87.891 Personal history of nicotine dependence; I45.10 Unspecified right bundle-branch block; Z95.0 Presence of cardiac pacemaker; Z79.01 Long term (current) use of anticoagulants; Z79.84 Long term (current) use of oral hypoglycemic drugs; Z87.11 Personal history of peptic ulcer disease
CPT/HCPCS: 36415; 70450; 71046; 71250; 72192; 73502; 73700; 80048; 82962; 83036; 84484; 85025; 85610; 93005; 94618; 97110; 97162; 97165; 97530; 99282; J7030; A4216

== ENCOUNTER → 2018-01-22 15:53 | Outpatient (CLI) | payer MEDICARE, OTHER, SELFPAY ==
[2018-01-22 17:29] LABS: International Normalized Ratio 1.9; Prothrombin Time (Protime)PT. 21.9 SECONDS (11.7-14.9)
== END ==
PROVIDERS: Family Provider Family Medicine; PCP Family Medicine; Referring Provider Internal Medicine Cardiovascular Disease; Visit Provider Internal Medicine Cardiovascular Disease
DX: I25.10 Atherosclerotic heart disease of native coronary artery without angina pectoris (principal); Z95.3 Presence of xenogenic heart valve; Z95.0 Presence of cardiac pacemaker; Z98.890 Other specified postprocedural states
CPT/HCPCS: 36415; 85610

== ENCOUNTER → 2018-01-29 13:08 | Outpatient (CLI) | payer MEDICARE, OTHER, SELFPAY ==
[2018-01-29 14:25] LABS: International Normalized Ratio 1.7; Prothrombin Time (Protime)PT. 19.7 SECONDS (11.7-14.9)
== END ==
PROVIDERS: Internal Medicine; Family Provider Family Medicine; PCP Family Medicine; Referring Provider Internal Medicine Cardiovascular Disease; Visit Provider Internal Medicine Cardiovascular Disease
DX: I48.0 Paroxysmal atrial fibrillation (principal); Z79.01 Long term (current) use of anticoagulants
CPT/HCPCS: 36415; 85610

== ENCOUNTER → 2018-02-02 11:48 | Outpatient (CLI) | payer MEDICARE, OTHER, SELFPAY ==
--- NOTE | 2018-02-02 12:33 | CT_ITS ---
STUDY: CT CHEST WITH CONTRAST REASON FOR EXAM: Male, 77 years old. Mediastinal adenopathy. Follow-up pneumonia. RADIATION DOSAGE (If Supplied By Facility): CTDIvol = ( 11.62 ) mGy, DLP = ( 608.74 ) mGycm TECHNIQUE: Transaxial imaging was performed following intravenous administration of 100cc ml of Isovue 300 contrast material. Individualized dose optimization techniques were used for this CT. COMPARISON: November 15, 2016, December 07, 2017 and January 07, 2018. FINDINGS: Within the right middle lobe there is a stable 8.1 x 9 mm pulmonary nodule that contains punctate calcifications. There is stable minimal dependent atelectasis within the lower lobes. There is no new focal consolidation. There are calcifications of the coronary arteries. Sternal cerclage wires are present from a prior sternotomy. There is an atrial appendage clip in place. There is stable cardiomegaly. There are stable prominent mediastinal and hilar lymph nodes that are likely reactive. Normal enhanced pulmonary arteries. There is atherosclerotic calcification of the aortic arch and descending thoracic aorta. There are multi-level degenerative changes of the thoracic spine. There are healing left lateral rib fractures. There is no demonstrated abnormality of the visualized upper abdomen. CT/Chest WITH Contrast IMPRESSION: Stable prominent mediastinal and hilar lymph nodes, likely reactive. Stable right middle lobe nodule November 2016. Minimal stable dependent atelectasis within the lower lobes. Atherosclerosis. Electronically Signed: Lili Lopez MD at 18:53 EDT Tel , Service support ,
[2018-02-02 12:57] LABS: Creatinine, Serum 1.23 mg/dL (0.70-1.30); EST Glomerular Filtration Rate 61 mL/min (>60); Est Glom Filt Rate - Afr Amer 74 mL/min (>60)
== END ==
PROVIDERS: Family Provider Family Medicine; PCP Family Medicine; Referring Provider Nurse Practitioner Acute Care; Visit Provider Nurse Practitioner Acute Care
DX: J18.1 Lobar pneumonia, unspecified organism (principal)
CPT/HCPCS: 36415; 71260; 82565; Q9967

== ENCOUNTER → 2018-02-04 07:45 | Outpatient (CLI) | payer MEDICARE, OTHER, SELFPAY ==
--- NOTE | 2018-02-04 15:10 | PFTCOMP_ITS ---
COMPLETE PULMONARY FUNCTION TEST INTERPRETATION Brief HPI: Patient is a 77 year old male, currently under the care of myself, who presents to [facility] for complete pulmonary function tests secondary to diagnosis of dyspnea. Respiratory therapist reports good effort and reproducible results. Interpretation: Forced expiration spirometry shows no large airways obstructive ventilatory defect with an FEV1 of 85% predicted. There is no significant bronchodilator response by strict ATS criteria. Spirograms are of good quality and plateau slowly, indicating slowly emptying areas of the lungs. The respiratory flow volume loop shows decreased expiratory flow rates at high lung volumes consistent with small airways obstruction. Lung volumes by body plethysmography show a decreased total lung capacity at 4.5 L, 77% predicted. All other lung volumes are within normal limits. Diffusion capacity by carbon monoxide is at the lower limit of normal at 64% predicted. The airway resistance is normal. No previous pulmonary function tests were available for review. Impression: Mild restrictive ventilatory defect with subtle changes consistent with small airways disease. No previous studies available for review.
== END ==
PROVIDERS: Family Provider Family Medicine; PCP Family Medicine; Visit Provider Nurse Practitioner Acute Care
DX: R06.02 Shortness of breath (principal)
CPT/HCPCS: 94060; 94726; 94729

== ENCOUNTER → 2018-02-16 08:46 | Outpatient (CLI) | payer MEDICARE, OTHER, SELFPAY ==
[2018-02-16 10:39] LABS: International Normalized Ratio 1.6; Prothrombin Time (Protime)PT. 18.9 SECONDS (11.7-14.9)
== END ==
PROVIDERS: Family Provider Family Medicine; PCP Family Medicine; Referring Provider Internal Medicine Cardiovascular Disease; Visit Provider Internal Medicine Cardiovascular Disease
DX: I48.0 Paroxysmal atrial fibrillation (principal); Z79.01 Long term (current) use of anticoagulants
CPT/HCPCS: 36415; 85610

== ENCOUNTER → 2018-02-20 10:19 | Outpatient (CLI) | payer MEDICARE, OTHER, SELFPAY ==
--- NOTE | 2018-02-20 10:30 | RAD_ITS ---
STUDY: X-RAY CHEST REASON FOR EXAM: Male, 77 years old. Cough x1 day TECHNIQUE: PA and lateral views of the chest. COMPARISON: 01/08/2018 FINDINGS: Stable appearance of a left subclavian pacemaker There are interstitial fibrotic changes of the lungs. There is no demonstrated pleural abnormality. Sternal cerclage wires are present from a prior sternotomy. Normal mediastinum and jerrica. Normal visualized pulmonary arteries. There is atherosclerotic calcification of the aortic arch with tortuosity. There are diffuse degenerative changes of the visualized thoracic spine. Normal visualized ribs, clavicles, and shoulders. There is no demonstrated abnormality of the visualized soft tissue structures of the upper abdomen. RAD/Chest PA and Lateral IMPRESSION: Chronic interstitial changes, no acute pulmonary process Electronically Signed: Jean Carlos Quiles MD at 9:08 EST , Service support ,
== END ==
PROVIDERS: Family Provider Family Medicine; PCP Family Medicine; Referring Provider Family Medicine; Visit Provider Family Medicine
DX: R05 Cough (principal)
CPT/HCPCS: 71046

== ENCOUNTER → 2018-02-23 08:32 | Outpatient (CLI) | payer MEDICARE, OTHER, SELFPAY ==
[2018-02-23 10:30] LABS: Prothrombin Time (Protime)PT. 22.3 SECONDS (11.7-14.9)
== END ==
PROVIDERS: Family Provider Family Medicine; PCP Family Medicine; Referring Provider Internal Medicine Cardiovascular Disease; Visit Provider Internal Medicine Cardiovascular Disease
DX: I48.0 Paroxysmal atrial fibrillation (principal); Z79.01 Long term (current) use of anticoagulants
CPT/HCPCS: 36415; 85610

== ENCOUNTER 2018-03-09 08:01 | Outpatient (RCR) | payer MEDICARE, OTHER, SELFPAY ==
[2018-03-05 10:42] VITALS: BMI 28.5
[2018-03-09 10:17] LABS: International Normalized Ratio 1.9
--- OUTSIDE RECORDS SUMMARY | 2018-05-02 07:51 | XMS RPT_ITS ---
:1940 Author Organization [place] Support Name Relationship Address Phone R Unavailable Unavailable Unavailable BENNETT, JESSI Unavailable [address] + [place] [address] BENNETT, MOMO Unavailable Unavailable + R Unavailable Unavailable Unavailable BENNETT, JESSI Unavailable [address] + [place] [address] BENNETT, MOMO Unavailable Unavailable + [place] [address] R Unavailable Unavailable Unavailable BENNETT, JESSI Unavailable [address] + [place] [address] BENNETT, MOMO Unavailable Unavailable + [place] [address] R Unavailable Unavailable Unavailable BENNETT, JESSI Unavailable [address] + [place] [address] BENNETT, MOMO Unavailable Unavailable + [place] [address] R Unavailable Unavailable Unavailable BENNETT, JESSI Unavailable [address] + [place] [address] BENNETT, MOMO Unavailable Unavailable + [place] [address] R Unavailable Unavailable Unavailable BENNETT, JESSI Unavailable [address] + [place] [address] BENNETT, MOMO Unavailable Unavailable + [place] [address] R Unavailable Unavailable Unavailable BENNETT, JESSI Unavailable [address] + [place] [address] BENNETT, MOMO Unavailable Unavailable + [place] [address] R Unavailable Unavailable Unavailable BENNETT, JESSI Unavailable [address] + [place] [address] BENNETT, MOMO Unavailable Unavailable + [place] [address] R Unavailable Unavailable Unavailable BENNETT, JESSI Unavailable [address] + [place] [address] BENNETT, MOMO Unavailable Unavailable + [place] [address] R Unavailable Unavailable Unavailable BENNETT, JESSI Unavailable [address] + [place] [address] BENNETT, MOMO Unavailable Unavailable + [place] [address] R Unavailable Unavailable Unavailable BENNETT, JESSI Unavailable [address] + [place] [address] BENNETT, MOMO Unavailable Unavailable + [place] [address] R Unavailable Unavailable Unavailable BENNETT, JESSI Unavailable [address] + [place] [address] BENNETT, MOMO Unavailable Unavailable + [place] [address] R Unavailable Unavailable Unavailable Bennett, Jessi Unavailable [address] + [place] [address] Bennett, Momo Unavailable Unavailable + [place] [address] R Unavailable Unavailable Unavailable BENNETT, JESSI Unavailable [address] + [place] [address] BENNETT, MOMO Unavailable Unavailable + [place] [address] R Unavailable Unavailable Unavailable Bennett, Jessi Unavailable [address] + [place] [address] Bennett, Momo Unavailable Unavailable + [place] [address] R Unavailable Unavailable Unavailable BENNETT, JESSI Unavailable [address] + [place] [address] BENNETT, MOMO Unavailable Unavailable + [place] [address] R Unavailable Unavailable Unavailable BENNETT, JESSI Unavailable [address] + [place] [address] BENNETT, MOMO Unavailable Unavailable + [place] [address] R Unavailable Unavailable Unavailable BENNETT, JESSI Unavailable [address] + [place] [address] BENNETT, MOMO Unavailable Unavailable + [place] [address] R Unavailable Unavailable Unavailable BENNETT, JESSI Unavailable [address] + [place] [address] BENNETT, MOMO Unavailable Unavailable + [place] [address] R Unavailable Unavailable Unavailable BENNETT, JESSI Unavailable [address] + [place] [address] BENNETT, MOMO Unavailable Unavailable + [place] [address] R Unavailable Unavailable Unavailable BENNETT, JESSI Unavailable [address] + [place] [address] BENNETT, MOMO Unavailable Unavailable + [place] [address] R Unavailable Unavailable Unavailable BENNETT, JESSI Unavailable [address] + [place] [address] BENNETT, MOMO Unavailable Unavailable + [place] [address] R Unavailable Unavailable Unavailable BENNETT, JESSI Unavailable [address] + [place] [address] BENNETT, MOMO Unavailable Unavailable + [place] [address] R Unavailable Unavailable Unavailable BENNETT, JESSI Unavailable [address] + [place] [address] BENNETT, MOMO Unavailable Unavailable + [place] [address] R Unavailable Unavailable Unavailable BENNETT, JESSI Unavailable [address] + [place] [address] BENNETT, MOMO Unavailable Unavailable + [place] [address] R Unavailable Unavailable Unavailable BENNETT, JESSI Unavailable [address] + [place] [address] BENNETT, MOMO Unavailable . + [place] [address] R Unavailable Unavailable Unavailable BENNETT, JESSI Unavailable [address] + [place] [address] BENNETT, MOMO Unavailable Unavailable + [place] [address] R Unavailable Unavailable Unavailable BENNETT, JESSI Unavailable [address] + [place] [address] BENNETT, MOMO Unavailable . + [place] [address] R Unavailable Unavailable Unavailable BENNETT, JESSI Unavailable [address] + [place] [address] BENNETT, MOMO Unavailable Unavailable + [place] [address] R Unavailable Unavailable Unavailable BENNETT, JESSI Unavailable [address] + [place] [address] BENNETT, MOMO Unavailable . + [place] [address] R Unavailable Unavailable Unavailable BENNETT, JESSI Unavailable [address] + [place] [address] BENNETT, OMMO Unavailable . + [place] [address] R Unavailable Unavailable Unavailable BENNETT, JESSI Unavailable [address] + [place] [address] BENNETT, MOMO Unavailable Unavailable + [place] [address] R Unavailable Unavailable Unavailable BENNETT, JESSI Unavailable [address] + [place] [address] BENNETT, MOMO Unavailable Unavailable + [place] [address] R Unavailable Unavailable Unavailable BENNETT, JESSI Unavailable [address] + [place] [address] BENNETT, MOMO Unavailable Unavailable + [place] [address] R Unavailable Unavailable Unavailable BENNETT, JESSI Unavailable [address] + [place] [address] BENNETT, MOMO Unavailable Unavailable + [place] [address] R Unavailable Unavailable Unavailable BENNETT, JESSI Unavailable [address] + [place] [address] BENNETT, MOMO Unavailable Unavailable + [place] [address] R Unavailable Unavailable Unavailable BENNETT, JESSI Unavailable [address] + [place] [address] BENNETT, MOMO Unavailable . + [place] [address] R Unavailable Unavailable Unavailable BENNETT, JESSI Unavailable [address] + [place] [address] BENNETT, MOMO Unavailable . + [place] [address] R Unavailable Unavailable Unavailable R Unavailable Unavailable Unavailable R Unavailable Unavailable Unavailable R Unavailable Unavailable Unavailable R Unavailable Unavailable Unavailable R Unavailable Unavailable Unavailable Care Team Providers Name Role Phone Gilma Phelps Attending Unavailable Daniel Phillips Attending Unavailable Brissa Santoro Referring Unavailable AnitraAbhishek tomas Attending Unavailable Anitra, Abhishek Referring Unavailable Marin, Lei Primary Care Unavailable Roof, Danial H Attending Unavailable Roof, Danial H Referring Unavailable Marin, Lei Primary Care Unavailable Marin, Lei Attending Unavailable Marin, Lei Referring Unavailable Marin, Lei Primary Care Unavailable Anitra, Dolton Attending Unavailable Marin, Lei Referring Unavailable Marin, Lei Primary Care Unavailable Marin, Lei Primary Care Unavailable Haile Quiles Attending Unavailable Gilma Phelps Attending Unavailable Marin, Lei Referring Unavailable AdelsoSedrick Attending Unavailable Marin, Lei Primary Care Unavailable AdelsoSedrick Referring Unavailable Roof, Danial H Attending Unavailable Roof, Danial H Referring Unavailable Marin, Lei Primary Care Unavailable Marin, Lei Primary Care Unavailable White, Rica Admitting Unavailable Julypperi, [place] Attending Unavailable Alan, Daniel Consulting Unavailable White, Rica Attending Unavailable Marin, Lei Primary Care Unavailable White, Rica Admitting Unavailable Jopperi, [place] Attending Unavailable Marin, Lei Primary Care Unavailable Jopperi, [place] Consulting Unavailable White, Rica Admitting Unavailable Jopperi, [place] Attending Unavailable Marin, Eli Primary Care Unavailable Alan, Daniel Consulting Unavailable Jopperi, [place] Consulting Unavailable White, Rica Admitting Unavailable Jopperi, [place] Attending Unavailable Marin, Lei Primary Care Unavailable Alan, Daniel Consulting Unavailable Jopperi, [place] Consulting Unavailable White, Rica Admitting Unavailable Jopperi, [place] Attending Unavailable Marin, Lei Primary Care Unavailable Alan, Daniel Consulting Unavailable Jopperi, [place] Consulting Unavailable Roof, Danial H Attending Unavailable Marin, Lei Referring Unavailable Marin, Lei Primary Care Unavailable Roof, Danial H Attending Unavailable Roof, Danial H Referring Unavailable Marin, Lei Primary Care Unavailable SantoroBrissa Attending Unavailable Marin, Lei Referring Unavailable Marin, Lei Primary Care Unavailable Anitra, Dolton Attending Unavailable Marin, Lei Primary Care Unavailable Alan, Danile Attending Unavailable White, Rica Referring Unavailable Alan, Daniel Attending Unavailable White, Rica Referring Unavailable Deven Ramirez Attending Unavailable RamirezDeven garcia Referring Unavailable Marin, Lei Primary Care Unavailable SantoroBrissa Attending Unavailable Santoro, Brissa Referring Unavailable Marin, Lei Primary Care Unavailable Santoro, Brissa Attending Unavailable Santoro, Brissa Referring Unavailable Marin, Lei Primary Care Unavailable Anitra, Dolton Attending Unavailable Anitra, Abhishek Referring Unavailable Marin, Lei Primary Care Unavailable Marin, Lei Primary Care Unavailable Joseph, Carlos Admitting Unavailable Joseph, Carlos Attending Unavailable Snyder, Eb Consulting Unavailable Marcos Tucker Attending Unavailable White, Rica Referring Unavailable Joseph, Carlos Admitting Unavailable Joseph, Carlos Attending Unavailable Marin, Lei Primary Care Unavailable Snyder, Eb Consulting Unavailable Joseph, Carlos Consulting Unavailable Joseph, Carlos Admitting Unavailable Joseph, Carlos Attending Unavailable Marin, Lei Primary Care Unavailable Snyder, Eb Consulting Unavailable Joseph, Carlos Consulting Unavailable Joseph, Carlos Admitting Unavailable Joseph, Carlos Attending Unavailable Marin, Lei Primary Care Unavailable Snyder, Eb Consulting Unavailable Joseph, Carlos Consulting Unavailable Joseph, Carlos Admitting Unavailable Joseph, Carlos Attending Unavailable Marin, Lei Primary Care Unavailable Snyder, Eb Consulting Unavailable Joseph, Carlos Consulting Unavailable Justo Danial Attending Unavailable Danial Snyder Attending Unavailable Anitra, Abhishek Attending Unavailable Marin, Lei Referring Unavailable Anitra, Abhishek Attending Unavailable Anitra, Dolton Referring Unavailable Marin, Lei Primary Care Unavailable SantoroBrissa Attending Unavailable Santoro, Brissa Referring Unavailable Marin, Lei Primary Care Unavailable Anitra, Dolton Attending Unavailable Anitra, Dolton Referring Unavailable Marin, Lei Primary Care Unavailable Carlos Ruiz Consulting Unavailable Daniel Phillips Attending Unavailable Brissa Santoro Referring Unavailable Anitra, Dolton Attending Unavailable Anitra, Abhishek Referring Unavailable Marin, Lei Primary Care Unavailable Marin, Lei Attending Unavailable Marin, Lei Referring Unavailable Marin, Lei Primary Care Unavailable Anitra, Abhishek Attending Unavailable Anitra, Dolton Referring Unavailable Marin, Lei Primary Care Unavailable Yesi Lo.Sussy. Attending Unavailable Marin, Lei Referring Unavailable Anitra, Abhishek Attending Unavailable Anitra, Abhishek Referring Unavailable Marin, Lei Primary Care Unavailable PROBLEMS PROBLEMS DATE TYPE CONDITION / CODE ATTENDING STATUS SOURCE 03/09/2018 Unknown I48.0 - Paroxysmal Anitra, Dolton Active [place] atrial fibrillation / Community I48.0(ICD-10) Hospital Repository 03/10/2018 Unknown G47.33 - Obstructive Gurjit Love, Active [place] sleep apnea (adult) D.O. Community (pediatric) / Hospital G47.33(ICD-10) Repository 03/10/2018 Unknown I50.9 - Heart Gurjit Love, Active [place] failure, unspecified D.O. Community / I50.9(ICD-10) Hospital Repository 03/10/2018 Unknown R06.02 - Shortness of Gurjit Love, Active [place] breath / D.O. Community R06.02(ICD-10) Hospital Repository 03/10/2018 Unknown R91.1 - Solitary Gurjit Love, Active [place] pulmonary nodule / D.O. 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 Community / Z95.3(ICD-10) Hospital Repository 01/22/2018 Unknown Z98.890 - Other Anitra, Dolton Active [place] specified Community postprocedural states Hospital / Z98.890(ICD-10) Repository 01/22/2018 Unknown E78.00 - Pure Anitra, Dolton Active [place] hypercholesterolemia, Community unspecified / Hospital E78.00(ICD-10) Repository 12/17/2017 Unknown I50.20 - Unspecified Danial Mcdaniel Active [place] systolic (congestive) Community heart failure / Hospital I50.20(ICD-10) Repository 12/25/2017 Unknown E78.5 - Alan, Daniel Active [place] Hyperlipidemia, Community unspecified / Hospital E78.5(ICD-10) Repository 12/25/2017 Unknown J96.01 - Acute Alan, Daniel Active [place] respiratory failure Community with hypoxia / Hospital J96.01(ICD-10) Repository 12/25/2017 Unknown R09.02 - Hypoxemia / Alan, Daniel Active [place] R09.02(ICD-10) [facility] Repository 12/25/2017 Unknown E87.2 - Acidosis / Alan, Daniel Active [place] E87.2(ICD-10) [facility] Repository 12/25/2017 Unknown I50.21 - Acute Alan, Daniel Active [place] systolic (congestive) [facility] heart failure / Hospital I50.21(ICD-10) Repository 12/25/2017 Unknown J91.8 - Pleural Alan, Daniel Active [place] effusion in other Community conditions classified Hospital elsewhere / Repository J91.8(ICD-10) 12/25/2017 Unknown E11.9 - Type 2 Alan, Daniel Active [place] diabetes mellitus Community without complications Hospital / E11.9(ICD-10) Repository 12/25/2017 Unknown E03.9 - Alan, Daniel Active [place] Hypothyroidism, Community unspecified / Hospital E03.9(ICD-10) Repository 09/02/2017 Unknown S62.102A - Fracture Haile Quiles Active [place] of unspecified carpal Community bone, left wrist, Hospital initial encounter for Repository closed fracture / S62.102A(ICD-10) 07/14/2017 Unknown I73.9 - Peripheral MarinLei jaramillo Active [place] vascular disease, Community unspecified / Hospital I73.9(ICD-10) Repository 04/22/2017 Unknown Z95.2 - Presence of Roof, Danial [place] prosthetic heart [facility] valve / Z95.2(ICD-10) Hospital Repository 04/22/2017 Unknown I34.0 - Nonrheumatic Roof, Danial Kaiser Active [place] mitral (valve) [facility] insufficiency / Hospital I34.0(ICD-10) Repository 04/22/2017 Unknown I35.0 - Nonrheumatic Roof, Danial Kaiser Active [place] aortic (valve) [facility] stenosis / Hospital I35.0(ICD-10) Repository 04/22/2017 Unknown I35.1 - Nonrheumatic Roof, Danial Kaiser Active [place] aortic (valve) [facility] insufficiency / Hospital I35.1(ICD-10) Repository 04/22/2017 Unknown I48.2 - Chronic Roof, Danial [place] atrial fibrillation / [facility] I48.2(ICD-10) Hospital Repository PROCEDURES PROCEDURES No Procedure Records FoundRESULTS RESULTS PROTHROMBIN TIME W/INR Collected: 03/23/2018 Status: F Source: [place] 9:14 AM [facility] REPOSITORY TYPE CODE TESTS RESULT OUT OF RANGE REFERENCE UNITS LAB L300.4150 11.7-14.9 SECONDS High PROTIME 23.2 LAB L300.4200 Normal INR 2.1 Performed By: #### L300.3900 #### [facility] [place], [address] PACEMAKER CHECK Observed: 03/19/2018 Status: F Source: [place] 11:15 AM [facility] REPOSITORY [facility] [address] [place] [address] [address] [place] [address] Pacemaker Check Date of Service: 03/19/18 1010 MR#: [id number] Acct: [id number] Name: MIKALA WILSON Rep #: [id number] : 1940 From: Gilma Phelps Age/Sex: 77/M [place] [facility] [place]: Signed Billing Codes PM Device Codes: PM Dev Prog Eval, Dual 03/19/18 1011 <Electronically signed by Gilma Phelps > Date Gilma Phelps 03/19/18 1115<Electronically signed by Abhishek Ayoub MD> Benjy Signature: Date (if applicable) Abhishek Ayoub MD CC: PROTHROMBIN TIME W/INR Collected: 03/09/2018 Status: F Source: [place] 8:08 AM [facility] REPOSITORY TYPE CODE TESTS RESULT OUT OF RANGE REFERENCE UNITS LAB L300.4150 11.7-14.9 SECONDS High PROTIME 22.0 LAB L300.4200 Normal INR 1.9 Performed By: #### L300.3900 #### [facility] [address] [place], [place], [address] PULMONARY VISIT REPORT Observed: 03/05/2018 Status: F Source: [place] 11:27 AM [facility] REPOSITORY [facility] [address] [place] [address] OFFICE VISIT Date of Service: 03/05/18 MR#: [id number] Acct: [id number] Name: MIKALA WILSON Rep #: [id number] : 1940 Provider: Gurjit Love D.O. Age/Sex: 77/M Location: [facility] [place].[facility] Status: Signed Assessment AND Plan 1. Shortness of breath R06.02 Plan The patient shortness of breath has significantly improved following optimization of his cardiac regimen and in light of recent weight loss. The patient's pulmonary function testing only showed evidence of a mild restrictive ventilatory impairment. Patient does not currently utilize any inhalers at his baseline. He is oxygenating well at today's office visit. He reports no significant shortness of breath at this time. 2. CLEMENT (obstructive sleep apnea) G47.33 Plan The patient reports compliance with the use of nocturnal CPAP therapy. He appears to be benefiting clinically from its use. This will be continued without change. Plan to obtain a compliance report to be reviewed at the patient's next office visit. 3. CHF (congestive heart failure) I50.9 Plan Continue current medical management and follow-up with cardiology as scheduled. 4. Lung nodule R91.1 Plan The patient's most recent CT chest revealed a stable appearing right middle lobe lung nodule, which is grossly unchanged in appearance since 2017. We will continue to monitor accordingly. Plan Detail Follow Up 6 Months (CSM) HPI HPI Comments Details: The patient is a 77-year-old male who presents to the clinic today for a routine scheduled follow-up office visit. His is present at today's office visit. The patient initially presented to our office in December 2017 in follow-up from a hospitalization. A CT chest obtained during the patient's hospitalization in December 2017 revealed mild mediastinal adenopathy, a groundglass opacity in the left upper lobe and a pulmonary nodule right middle lobe. There was no evidence for PE. Surface echocardiogram completed at that time revealed ejection fraction of 40% with an elevated RVSP of 45 mmHg. He does have a known history of obstructive sleep apnea, for which he utilizes nocturnal CPAP therapy. Pulmonary function testing completed at the beginning of February 2018 revealed evidence of a mild restrictive ventilatory impairment with subtle findings of possible small airways disease. A 6-minute walk test was also completed at that time and revealed a enrrique oxygen saturation of 89% with ambulation. Repeat CT chest with contrast dated February 02, 2018 revealed evidence of a right middle lobe pulmonary nodule measuring 8.1 x 9 mm. There was evidence of both mediastinal and hilar lymph nodes. Today, the patient denies any significant shortness of breath, chest tightness or wheezing. He does not currently utilize any inhalers at his baseline. He is oxygenating well at today's office visit. He states that he has lost some weight after instituting some dietary modifications. He is now watching what he eats and is becoming more active. He states that he has been compliant with the use of nocturnal CPAP therapy and denies any issues related to its use. He denies fevers, chills or night sweats. He additionally denies the presence of chest pain, dizziness or lightheadedness. 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 Accompanied by: Is patient in pain?: No Allergies No Known Allergies Allergy (Verified 03/05/18 10:42) Medications aspirin 81 mg tablet,delayed release 81 mg PO QDAY 07/24/17 [History Confirmed 03/05/18] Cilostazol [Pletal] 100 mg PO BID 12/07/17 [History Confirmed 03/05/18] Albuterol Inhaler [Ventolin Hfa] 1 - 2 puff INHALATION Q4H PRN PRN #1 inhaler 12/11/17 [Rx Confirmed 03/05/18] Potassium Chloride [K-Dur] 10 meq PO DAILY 01/07/18 [History Confirmed 03/05/18] Warfarin [Coumadin] 7.5 mg PO WETHFR 01/07/18 [History Confirmed 03/05/18] glimepiride 4 mg tablet 2 mg PO DAILY@0800 tab 01/22/18 [History Confirmed 03/05/18] lisinopril 5 mg tablet 5 mg PO DAILY #90 tab 01/22/18 [Rx Confirmed 03/05/18] metformin 500 mg tablet 1,000 mg PO BIDCM tab 01/22/18 [History Confirmed 03/05/18] furosemide 40 mg tablet 40 mg PO DAILY #90 tab 02/03/18 [Rx Confirmed 03/05/18] warfarin 5 mg tablet 7.5 mg PO SUMOTUSA #90 tab 02/03/18 [Rx Confirmed 03/05/18] carvedilol 6.25 mg tablet 6.25 mg PO BID #180 tab 02/16/18 [Rx Confirmed 03/05/18] pioglitazone 30 mg tablet 45 mg PO DAILY@0800 tab 03/05/18 [History Confirmed 03/05/18] sertraline 100 mg tablet 50 mg PO QDAY 30 Days #15 tab 03/05/18 [History Confirmed 03/05/18] [facility] Medical History Sick sinus syndrome (Chronic) Chronic systolic (congestive) heart failure (Chronic) Paroxysmal atrial fibrillation (Chronic) Other secondary pulmonary hypertension (Chronic) Nonrheumatic mitral valve regurgitation (Chronic) Nonrheumatic aortic (valve) stenosis (Chronic) Nonrheumatic aortic (valve) insufficiency (Chronic) Carotid artery stenosis (Chronic) Atherosclerotic heart disease of [place] coronary artery without angina pectoris (Chronic) Hyperlipidemia (Chronic) Anemia (Chronic) Duodenal ulcer (Chronic) Fracture of right pubis (Chronic) GI bleed (Chronic) Hypothyroidism (Chronic) Obstructive sleep apnea (Chronic) Osteoporosis (Chronic) Pancytopenia (Chronic) Rib fracture (Chronic) Type 2 diabetes mellitus (Chronic) Surgical History History of maze procedure (Chronic) Status post placement of cardiac pacemaker (Chronic) Status post mitral valve repair (Chronic) 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) H/O left knee surgery (Chronic) Hx gamma knife procedure (Chronic) Family History Mother Myocardial infarction CAD (coronary artery disease) Hypertension Sister Hypertension CVA (cerebral vascular accident) Son Diabetes Social History Smoking Status: Former smoker alcohol intake: former substance use type: does not use caffeine: Yes Type: coffee what type of physical activity do you participate in: none seatbelt use: always do you feel safe at home: Yes Review of Systems Const CONSTITUTIONAL: Negative anorexia, body ache, chills, daytime sleepiness, fever(s), night sweats, oral thrush, stops breathing during sleep, weight loss, sleeping in chair, fatigue, weight loss, weight gain, frequent colds, seasonal allergies, other, headache(s) or orthopnea EETM Ear Nose Throat Mouth: Positive hearing normal; negative hard of hearing, hoarseness, dry mouth in morning, change in vision, itchy eyes, eye pain, swallowing Difficulty, ear pain, nose bleed, headache(s), mouth pain, nasal congestion, nasal discharge, post nasal drip, sinus pain, sinus pressure, sore throat or other Cardio Cardiovascular: Positive murmur; negative chest pain, chest pain at rest, chest pain with activity, irregular heart rhythm, edema, shortness of breath when lying down, palpitations or other Resp Respiratory: Positive as per HPI, cough cough: Positive non- productive and inhalers; negative shortness of breath, pain with cough, wheezing, chest congestion, chest tightness, pain on inspiration, increase use of rescue inhalers, snoring, apnea or other Gastro Gastrointestional: Negative bloody stools, change in appetite, difficulty swallowing, reflux, hematemesis, melena stool, loose stool, constipation or other Genitourinary: Negative blood in urine, nocturia, pain with urination or other Musc Musculoskeletal: Negative body pain, back pain, neck pain or other Skin/Breast Skin/Breast: Negative dry skin, itching, rash, unusual bruising, breast lump or other Neuro Neurological: Negative restless legs, confusion, weakness or other Psych Psychocological: Negative abnormal sleep pattern, anxiety, thoughts of hurting self/others, hopelessness or other Lymph Lymphatic: Negative easy bleeding, easy bruising, swollen lymph nodes or other Exam Const Constitutional: Positive conversant, cooperative, in no acute respiratory distress, well developed, well nourished and good hygiene Head Head: Positive normocephalic and atraumatic; negative cyanosis of lips/distal nose Eyes Eye: Positive clear conjunctiva; negative nystagmus or scleral abnormality Ears Ear: Positive hearing normal and external ears normal; negative hard of hearing Nose Nose: Positive external nose normal; negative epistaxis Mouth Mouth: Positive oral mucosae normal and posterior oropharynx is adequate; negative no lesions or post nasal drip Mallampati Score: II: Mallampati Score Neck Neck: Positive normal visual inspection and trachea midline; negative lymphadenopathy Chest Wall Chest: Positive symmetric chest movement Normal AP diameter. Resp lung sounds: Positive clear to auscultation and good air exchange; negative wheezes, rhonchi or rales Cardio Cardiac: Positive regular rate, regular rhythm, S1 normal, S2 normal and murmur; negative rub or gallop GI GI: Positive normal bowel sounds Soft without distention Genitourinary: Positive deferred Musc Musculoskeletal: Positive steady gait Skin Pulmonary Skin Exam: Positive intact; negative lesion, ulcers, dermal atrophy or rash Pulses Pulse: Yes Pedal pulses present: Extremities Extremities: No clubbing, No cyanosis, No edema Neuro Neurologic: Yes conversant, Yes no focal neuro deficits, Yes cooperative Lymph Lymphatic: No lymphadenopathy Psych Appearance: Positive grossly normal Mental Status: Positive mental status grossly normal Mood: Positive congruent mood Affect: Positive normal affect Coding Level of Care Code Off vis,est,level 3 Diagnoses Shortness of breath R06.02 CLEMENT (obstructive sleep apnea) G47.33 CHF (congestive heart failure) I50.9 Lung nodule R91.1 03/05/18 1127 <Electronically signed by Gurjit Love DO> Date Gurjit Marmolejo Signature: Date (if applicable) CC: Lei Funes DO 6 MINUTE WALK TEST Observed: 02/24/2018 Status: F Source: [place] 12:39 PM [facility] RE[facility]IT[facility] Pulmonary Services/Neurology [address] [place] [address] MR#: [id number] Acct: [id number] Name: MIKALA WILSON Rep #: [id number] : 1940 77 From: Daniel Phillips MD Referring Dr: Brissa Santoro NP Date: Ordering Dr: Sex: M C Location: PSN PSN 6 Minute Walk Test - 6 Minute Walk Test 6 Minute Walk Test: 6 Minute Walk Test PSN:6-Minute Walk Test Start: 01/05/18 09:42 Freq: Status: Active Protocol: RESP.6MINW Document 01/05/18 09:42 SFENTON (Rec: 01/05/18 09:47 SFENTON [id number]) 6 Minute Walk Test Date Performed 01/05/18 Time Performed 09:00 Height 5 ft 7.5 in Weight: 87.997 kg Weight in Pounds 194.[address]: Daniel Phillips Assistive device used: None Pre-test Oxygen Delivery Method Room Air Pulse Ox (%) 91 Pulse Rate (60-100 beats/min) 90 Dyspnea Anjel Scale (0-10) 0 Exertion Anjel Scale (6-20) 6 1st minute Oxygen Delivery Method Room Air Pulse Ox (%) 91 Pulse Rate (60-100 beats/min) 91 2nd minute Oxygen Delivery Method Room Air Pulse Ox (%) 90 Pulse Rate (60-100 beats/min) 96 3rd minute Oxygen Delivery Method Room Air Pulse Ox (%) 90 Pulse Rate (60-100 beats/min) 103 H 4th minute Oxygen Delivery Method Room Air Pulse Ox (%) 90 Pulse Rate (60-100 beats/min) 104 H 5th minute Oxygen Delivery Method Room Air Pulse Ox (%) 89 Pulse Rate (60-100 beats/min) 104 H 6th minute Oxygen Delivery Method Room Air Pulse Ox (%) 90 Pulse Rate (60-100 beats/min) 107 H Dyspnea Anjel Scale (0-10) 0 Exertion Anjel Scale (6-20) 12 Post-test Oxygen Delivery Method Room Air Pulse Ox (%) 92 Pulse Rate (60-100 beats/min) 94 Full Laps Walked 10 Partial Lap, Number of Tiles Walked 40 Total Distance Walked (ft) 630 - Interpretation Interpretation: The patient was able to ambulate 630 feet over the course of 6 minutes on room air with no assistive devices or breaks. The patient was noted to have a lower baseline saturation of 91%, but lowest documented saturation with ambulation was 89%. Patient did have mild tachycardia associated with ambulation. These findings are consistent with a respiratory limitation exercise tolerance. - Recommendations Recommendations: Supplemental oxygen is indicated at this time. However, patient will need to be followed closely given level of desaturation. 02/24/18 1239 <Electronically signed by Daniel Phillips MD> Date Daniel Phillips MD CC: Date Dictated: 01/05/18 1505 Date Transcribed: 01/05/181504 Geosciences Professor: Daniel Phillips Signed PROTHROMBIN TIME W/INR Collected: 02/23/2018 Status: F Source: [place] 8:36 AM [facility] REPOSITORY TYPE CODE TESTS RESULT OUT OF RANGE REFERENCE UNITS LAB L300.4150 11.7-14.9 SECONDS High PROTIME 22.3 LAB L300.4200 Normal INR 2.0 Performed By: #### L300.3900 #### [facility] Laboratory [address] [facility], [address] CHEST PA AND LATERAL Observed: 02/20/2018 Status: F Source: [place] 3:43 PM [facility] RE[facility] Imaging Services [address] [place] [address] Chest PA and Lateral MR#: [id number] Acct: [id number] Name: ADOLFO WILSONCirilo Kaiser Rep #: [id number] : 1940 M 77 From: Tres Quiles MD PCP: Lei Funes DO Status: REG CLI Study: Chest PA and Lateral Date of Exam: 02/20/18 Exam# [id number] Ordering Dr: Lei Funes DO STUDY: X-RAY CHEST REASON FOR EXAM: Male, 77 years old. Cough x1 day TECHNIQUE: PA and lateral views of the chest. COMPARISON: 01/08/2018 FINDINGS: Stable appearance of a left subclavian pacemaker There are interstitial fibrotic changes of the lungs. There is no demonstrated pleural abnormality. Sternal cerclage wires are present from a prior sternotomy. Normal mediastinum and jerrica. Normal visualized pulmonary arteries. There is atherosclerotic calcification of the aortic arch with tortuosity. There are diffuse degenerative changes of the visualized thoracic spine. Normal visualized ribs, clavicles, and shoulders. There is no demonstrated abnormality of the visualized soft tissue structures of the upper abdomen. RAD/Chest PA and Lateral IMPRESSION: Chronic interstitial changes, no acute pulmonary process Electronically Signed: Jean Carlos Quiles MD at 9:08 EST , Service support , CC: Lei Funes DO Geosciences Professor: Signed PROTHROMBIN TIME W/INR Collected: 02/16/2018 Status: F Source: [place] 8:52 AM [facility] TYPE CODE TESTS RESULT OUT OF RANGE REFERENCE UNITS LAB L300.4150 11.7-14.9 SECONDS High PROTIME 18.9 LAB L300.4200 Normal INR 1.6 Performed By: #### L300.3900 #### [facility] [address] [place] [address]. [place], [address] PULMONARY FUNCTION Observed: 02/05/2018 Status: F Source: [place] REPORT COMP 5:37 AM [facility] RE[facility] Pulmonary Services/Neurology [facility] [place] [address] MR#: [id number] Acct: [id number] Name: MIKALA WILSON Rep #: [id number] : 1940 77 From: Daniel Phillips MD Referring Dr: Brissa Santoro NP Status: REG CLI Ordering Dr: Date: Location: [facility] Sex: M C COMPLETE PULMONARY FUNCTION TEST INTERPRETATION Brief HPI: Patient is a 77 year old male, currently under the care of myself, who presents to [facility] for complete pulmonary function tests secondary to diagnosis of dyspnea. Respiratory therapist reports good effort and reproducible results. Interpretation: Forced expiration spirometry shows no large airways obstructive ventilatory defect with an FEV1 of 85% predicted. There is no significant bronchodilator response by strict ATS criteria. Spirograms are of good quality and plateau slowly, indicating slowly emptying areas of the lungs. The respiratory flow volume loop shows decreased expiratory flow rates at high lung volumes consistent with small airways obstruction. Lung volumes by body plethysmography show a decreased total lung capacity at 4.5 L, 77% predicted. All other lung volumes are within normal limits. Diffusion capacity by carbon monoxide is at the lower limit of normal at 64% predicted. The airway resistance is normal. No previous pulmonary function tests were available for review. Impression: Mild restrictive ventilatory defect with subtle changes consistent with small airways disease. No previous studies available for review. 02/05/18 0537 <Electronically signed by Daniel Phillips MD> Date Daniel Phillips MD CC: Daniel Phillips MD; Brissa Funes DO Date Dictated: 02/04/18 1508 Date Transcribed: 02/04/18 1508 Geosciences Professor: NATALIIA Signed CHEST WITH CONTRAST Observed: 02/02/2018 Status: F Source: [place] 12:33 PM [facility] REPOSITORY [facility] Imaging Services [address] [place] [address] Chest WITH Contrast MR#: [id number] Acct: [id number] Name: IMKALA WILSON Rep #: [id number] : 1940 M 77 From: Lili Lopez MD PCP: Lei Funes DO Status: REG CLI Study: Chest WITH Contrast Date of Exam: 02/02/18 Exam# [id number] Ordering Dr: Brissa Santoro STUDY: CT CHEST WITH CONTRAST REASON FOR EXAM: Male, 77 years old. Mediastinal adenopathy. Follow-up pneumonia. RADIATION DOSAGE (If Supplied By Facility): CTDIvol = ( 11.62 ) mGy, DLP = ( 608.74 ) mGycm TECHNIQUE: Transaxial imaging was performed following intravenous administration of 100cc ml of Isovue 300 contrast material. Individualized dose optimization techniques were used for this CT. COMPARISON: November 15, 2016, December 07, 2017 and January 07, 2018. FINDINGS: Within the right middle lobe there is a stable 8.1 x 9 mm pulmonary nodule that contains punctate calcifications. There is stable minimal dependent atelectasis within the lower lobes. There is no new focal consolidation. There are calcifications of the coronary arteries. Sternal cerclage wires are present from a prior sternotomy. There is an atrial appendage clip in place. There is stable cardiomegaly. There are stable prominent mediastinal and hilar lymph nodes that are likely reactive. Normal enhanced pulmonary arteries. There is atherosclerotic calcification of the aortic arch and descending thoracic aorta. There are multi-level degenerative changes of the thoracic spine. There are healing left lateral rib fractures. There is no demonstrated abnormality of the visualized upper abdomen. CT/Chest WITH Contrast IMPRESSION: Stable prominent mediastinal and hilar lymph nodes, likely reactive. Stable right middle lobe nodule November 2016. Minimal stable dependent atelectasis within the lower lobes. Atherosclerosis. Electronically Signed: Lili Lopze MD at 18:53 EDT Tel , Service support , CC: Brissa Santoro; Lei Funes DO Geosciences Professor: Signed SERUM CREATININE AND Collected: 02/02/2018 Status: F Source: [place] GFR 11:58 AM [facility] RE[facility] TYPE CODE TESTS RESULT OUT OF RANGE REFERENCE UNITS LAB L501.1100 0.70-1.30 mg/dL Normal 1.23 CREAT,SERUM Result Comment: The validity of the calculated GFR AND GFRAA in patients over 70 years has not been determined. Clinical correlation is essential. LAB L501.1110 >60 mL/min Normal EST GFR 61 Result Comment: Non- GFR Calc LAB L501.1115 >60 mL/min Normal EST GFR - AA 74 Result Comment: GFR Calc Performed By: #### L501.1105 #### [facility] [address] [place], [address] PROTHROMBIN TIME W/INR Collected: 01/29/2018 Status: F Source: [place] 1:14 PM [facility] RE[facility]ITORY Order Comment: Send Results To: PCP to adjust dose of coumadin Reason for Laboratory Test On comadin TYPE CODE TESTS RESULT OUT OF RANGE REFERENCE UNITS LAB L300.4150 11.7-14.9 SECONDS High PROTIME 19.7 LAB L300.4200 Normal INR 1.7 Performed By: #### L300.3900 #### [facility] [address] [place], [place], [address] PROTHROMBIN TIME W/INR Collected: 01/22/2018 Status: F Source: [place] 3:59 PM [facility] TYPE CODE TESTS RESULT OUT OF RANGE REFERENCE UNITS LAB L300.4150 11.7-14.9 SECONDS High PROTIME 21.9 LAB L300.4200 Normal INR 1.9 Performed By: #### L300.3900 #### [facility] [address] [place], [address] CARDIOLOGY VISIT Observed: 01/22/2018 Status: F Source: [place] REPORT 3:37 PM [facility] RE[facility] [address] [place], [place] [address] OFFICE VISIT Date of Service: 01/22/18 MR#: [id number] Acct: [id number] Name: MIKALA WILSON Rep #: [id number] : 1940 Provider: Abhishek Ayoub MD Age/Sex: 77/M Location: [facility] Status: Signed HPI HPI Chief Complaint: Follow up Details: MIKALA WILSON, is a 77 M who presents to the office today for a cardiovascular outpatient follow-up. 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 In December 2016 he had an upper GI bleed that required 6 units of PRBCs. Patient presented to [facility] in December 2017 for worsening shortness of breath. His EKG showed sinus tachycardia at a rate of 108 bpm with PACs, PVCs, and right bundle branch block. His chest x-ray showed mild pulmonary venous congestion. His CT scan showed findings consistent with interstitial pneumonia. He underwent an echocardiogram that showed ejection fraction 40%, moderate concentric LVH, mildly dilated right ventricle, severely enlarged left atrium, severely enlarged right atrium, mild to moderate mitral valve stenosis, mild transvalvular insufficiency of mitral valve, moderately severe tricuspid valve insufficiency, stable bioprosthetic aortic valve apparatus, and RVSP of 45 mmHg. He was treated for pneumonia and symptoms improved. Per progress note it appears the patient developed paroxysmal atrial fibrillation, though no 12-lead ECG confirms this. He was started on Coumadin therapy. He was ultimately discharged home. Pt. denies chest, arm, jaw, or neck discomfort. His exercise tolerance is stable. Pt. denies symptoms of CHF, palpitations, lightheadedness, dizziness, near syncope, or syncopal episodes. Pt. denies edema or claudication issues. Pt. denies orthopnea, PND, fever, chills, blood in urine, blood in stool, myalgia, or unexplainable fatigue. Family state his gait is unsteady. He did unfortunately sustain a fall in January of this year and was admitted to the hospital and evaluated. Since then he has been doing well. He was placed on a higher dose of Lasix which he appears to have tolerated he does not have any pedal edema any longer. He is returning today for follow-up visit. His physical exam demonstrates clear lung hoang regular rate and rhythm and no pedal edema. Intake Vital Signs01/22/18 Height 5 ft 8 in 01/22/18 Weight: 191 lb 01/22/18 Body Mass Index (BMI) 29.0 01/22/18 Blood Pressure 122/68 H H 01/22/18 Blood Pressure Location Lt brachial Intake Visit Reasons: DC 10-6 (2-4 wks) Grinder Tender Required: No Accompanied by: Is patient in pain?: No Allergies No Known Allergies Allergy (Verified 01/22/18 15:17) Medications aspirin 81 mg tablet,delayed release 81 mg PO QDAY 07/24/17 [History Confirmed 01/22/18] sertraline 100 mg tablet 100 mg PO QDAY 30 Days #30 tab 07/24/17 [History Confirmed 01/22/18] Cilostazol [Pletal] 100 mg PO BID 12/07/17 [History Confirmed 01/22/18] Albuterol Inhaler [Ventolin Hfa] 1 - 2 puff INHALATION Q4H PRN PRN #1 inhaler 12/11/17 [Rx Confirmed 01/22/18] furosemide 40 mg tablet 40 mg PO DAILY 12/22/17 [History Confirmed 01/22/18] Carvedilol [Coreg] 6.25 mg PO BID 01/07/18 [History Confirmed 01/22/18] Pioglitazone [Actos] 30 mg PO DAILY@0800 01/07/18 [History Confirmed 01/07/18] Potassium Chloride [K-Dur] 10 meq PO DAILY 01/07/18 [History Confirmed 01/22/18] Warfarin [Coumadin] 7.5 mg PO WETHFR 01/07/18 [History Confirmed 01/22/18] Warfarin [Coumadin] 7.5 mg PO SUMOTUSA #0 01/10/18 [Rx Confirmed 01/22/18] glimepiride 4 mg tablet 2 mg PO DAILY@0800 tab 01/22/18 [History Confirmed 01/22/18] lisinopril 5 mg tablet 5 mg PO DAILY #90 tab 01/22/18 [Rx Confirmed 01/22/18] metformin 500 mg tablet 1,000 mg PO BIDCM tab 01/22/18 [History Confirmed 01/22/18] PFSH Medical History Sick sinus syndrome (Chronic) Chronic systolic (congestive) heart failure (Chronic) Paroxysmal atrial fibrillation (Chronic) Other secondary pulmonary hypertension (Chronic) Nonrheumatic mitral valve regurgitation (Chronic) Nonrheumatic aortic (valve) stenosis (Chronic) Nonrheumatic aortic (valve) insufficiency (Chronic) Carotid artery stenosis (Chronic) Atherosclerotic heart disease of [place] coronary artery without angina pectoris (Chronic) Hyperlipidemia (Chronic) Anemia (Chronic) Duodenal ulcer (Chronic) Fracture of right pubis (Chronic) GI bleed (Chronic) Obstructive sleep apnea (Chronic) Osteoporosis (Chronic) Pancytopenia (Chronic) Rib fracture (Chronic) Type 2 diabetes mellitus (Chronic) Hypothyroidism (Chronic) Surgical History History of maze procedure (Chronic) Status post placement of cardiac pacemaker (Chronic) Status post mitral valve repair (Chronic) 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) H/O left knee surgery (Chronic) Hx gamma knife procedure (Chronic) Family History Mother Myocardial infarction CAD (coronary artery disease) Hypertension Sister Hypertension CVA (cerebral vascular accident) Son Diabetes Social History Smoking Status: Former smoker alcohol intake: former substance use type: does not use caffeine: Yes Type: coffee what type of physical activity do you participate in: none seatbelt use: always do you feel safe at home: Yes ROS Const Const: Negative for fatigue, weakness, night sweats, excessive sweating, frequent falls, headache(s) or daytime sleepiness Eyes Eyes: Negative for loss of peripheral vision, transient loss of vision, blind spots, double vision or blurry vision ENT ENT: Negative for headache(s), dizziness, balance problems, Nosebleed/epistaxis, tongue swelling or lip swelling Cardio Chest Pain: No Palpitations: No Edema: None Muscle aches with walking: None Resp Respiratory: Negative for SOB at rest, SOB orthopnea\SOB lying down, Cough, paroxysmal nocturnal dyspnea or SOB with activity GI GI: Negative nausea, vomiting, heartburn, black,tarry stools or bright, red blood in stools : Negative for hematuria Musc Musc: Negative for balance problems, muscle aches/ myalgia, muscle weakness or joint pain Skin Skin: Negative non-healing lesions, unusual bruising or rash Neuro Neuro: Negative for weakness, frequent falls, headache(s), double vision, dizziness, lightheadedness, orthostatic symptoms, blurry vision or lack of coordination Jonh Hematologic/Lymphatic: Negative for easy bruising or easy bleeding Endo Endo: Negative for fatigue, excessive sweating, cold intolerance, heat intolerance, increased thirst/drinking or hair loss Psych Psych: Negative for anxiety or depression Allergy Allergy/Immunology: Negative for throat swelling, Negative for tongue swelling, Negative for hives, Negative for rash, Negative for lip swelling Cardiology Exam Const Appearance: cooperative, healthy appearing, well developed, well groomed and no acute distress Nutritional Appearance: well nourished and average body habitus Orientation: alert, awake and oriented x3 Head Head: normal to inspection, normocephalic and atraumatic Ears: hearing grossly normal bilaterally and external ears normal Nose: external nose normal, nasal mucous membranes and turbinates normal, nares normal, septum normal, no nasal discharge Face and Sinus: face symmetric Mouth: oral mucosae normal, tongue normal, oropharynx normal and moist mucous membranes Teeth and gingiva: dentition normal Throat: posterior oropharynx normal, tonsils normal and uvula midline Eyes General: appearance normal, both eyes and all related structures Eyelids: eyelids normal Conjunctivae: conjunctivae normal Pupils: PERRL, normal by confrontation and accommodation normal EOM: EOM intact bilaterally Neck Neck: normal visual inspection, trachea midline and no JVD JVD: +5 Carotids: normal carotid upstroke and bounding pulses Chest Chest inspection: normal inspection of the chest, symmetric chest movement and normal respiratory effort Auscultation: Bilateral: Clear to Auscultation Cardio Palpation: normal PMI Rhythm: irregular rhythm Heart sounds: S1 normal and S2 normal GI GI: normal to inspection, soft, no hepatosplenomegaly and bowel sounds present Neuro General: alert, awake, oriented x3, no focal sensory deficit, gait normal and moves all extremities Skin Skin: no rashes or lesions noted Extremities Pulses: Normal: Right Femoral Pulse, Left Femoral Pulse, Right Dorsalis Pedis Pulse, Left Dorsalis Pedis Pulse, Right Posterior Tibial Pulse, Left Posterior Tibial Pulse, Right Radial Pulse, Left Radial Pulse Lower Extremity Edema: None: Bilateral Musculoskel Musculoskeletal: No joint tenderness Psych Psychological: normal affect Assessment AND Plan 1. Status post aortic valve replacement with bioprosthetic valve Z95.3 Aortic Valve Replacement w/ 23-mm Jay-Aragon pericardial valve Plan He is status post aortic valve replacement with a bioprosthetic valve. He appears to be doing well with regard to the above. His most recent echocardiogram in December 2017 demonstrated a stable appearing bioprosthetic aortic valve with a max gradient of 13 mmHg and a mean gradient of 8 mmHg. No changes will be made with regard to the above. I will recommend reducing his lisinopril to 5 mg a day. He would also continue his carvedilol. 2. Status post mitral valve repair Z98.890 mitral valve repair and MAZE procedure 01/24/[address] Tolliver @ [facility] Plan He is status post mitral valve repair once again the recent echocardiogram demonstrated an annuloplasty ring present and mild mitral regurgitation. His pulmonary artery systolic pressures however were noted to be elevated with right ventricular systolic pressure estimated to be 45 mmHg. I would recommend that he remain on the Lasix 40 mg a day. 3. Status post placement of cardiac pacemaker Z95.0 Permanent pacemaker placement 02/02/16 @ [facility] Plan He is status post permanent pacemaker implantation. This appears to be functioning quite well his last pacemaker interrogation demonstrated adequate functioning. He has had some mode switch episodes noted. 4. Pure hypercholesterolemia E78.00 Plan He does have a history of hyperlipidemia and remains on lipid- lowering medication for the above no changes will be made with regard to this. 5. Atherosclerosis of [place] coronary artery without angina pectoris, unspecified whether [place] or transplanted heart I25.10 Plan His last catheterization in 2015 demonstrated normal left main coronary artery, left circumflex artery with no significant stenosis, LAD with no high-grade stenosis in a dominant right coronary artery with mid segment moderate disease noted. He will continue with aggressive risk factor modification. Plan Detail Other Medications New: Discontinued: Follow Up 4 Months (r) Coding Level of Care Code Off vis,est,level 4 Diagnoses Status post aortic valve replacement with bioprosthetic valve Z95.3 Status post mitral valve repair Z98.890 Status post placement of cardiac pacemaker Z95.0 Pure hypercholesterolemia E78.00 Hyperlipidemia type: pure hypercholesterolemia Atherosclerosis of cold [place] coronary artery without angina pectoris, unspecified whether [place] or transplanted heart I25.10 [place] vs. transplanted heart: unspecified whether [place] or transplanted heart Coding Level of Care Code Off vis,est,level 4 Diagnoses Status post aortic valve replacement with bioprosthetic valve Z95.3 Status post mitral valve repair Z98.890 Status post placement of cardiac pacemaker Z95.0 Pure hypercholesterolemia E78.00 Hyperlipidemia type: pure hypercholesterolemia Atherosclerosis of [place] coronary artery without angina pectoris, unspecified whether [place] or transplanted heart I25.10 [place] vs. transplanted heart: unspecified whether [place] or transplanted heart 01/22/18 1537 <Electronically signed by Abhishek Ayoub MD> Date Abhishek Ayoub MD Cosigner Signature: Date (if applicable) CC: Lei Funes DO CBC-COMPLETE BLOOD CNT Collected: 01/19/2018 Status: F Source: [place] NO DIFF 6:05 AM [facility] REPOSITORY Order Comment: ROOM 401 TYPE CODE TESTS RESULT OUT OF RANGE REFERENCE UNITS LAB L100.1000 4.4-11.0 K/mm3 Normal WBC 6.4 LAB L100.1200 4.6-6.2 M/mm3 Low RBC 3.36 LAB L100.1300 13.0-16.5 g/dl Low HGB 9.5 LAB L100.1400 40-54 % Low HCT 30.0 LAB L100.1500 80-94 fL Normal MCV 89.3 LAB L100.1600 27.0-32.0 pg Normal MCH 28.3 LAB L100.1700 32-36 g/gl Low MCHC 31.7 LAB L100.1810 11.6-14.6 % High RDW CV 17.3 LAB L100.1820 35.1-43.9 fl High RDW SD 54.5 LAB L100.1900 150-450 K/mm3 Normal PLT 193 LAB L100.2000 6.2-12.0 fl Normal MPV 10.5 Performed By: #### L100.0500 #### [facility] [address] [place], [address] BASIC METABOLIC Collected: 01/19/2018 Status: F Source: [place] PROFILE (BMP) 6:05 AM [facility] REPOSITORY Order Comment: ROOM 401 TYPE CODE TESTS RESULT OUT OF RANGE REFERENCE UNITS LAB L501.0100 74-106 mg/dL Normal GLU 74 Result Comment: Please note revised GLUCOSE reference range effective 2017. LAB L501.1000 7-18 mg/dL High BUN 21 LAB L501.1100 0.70-1.30 mg/dL Normal CREAT,SERUM 0.90 Result Comment: The validity of the calculated GFR AND GFRAA in patients over 70 years has not been determined. Clinical correlation is essential. LAB L501.1110 >60 mL/min Normal EST GFR 87 Result Comment: Non- GFR Calc LAB L501.1115 >60 mL/min Normal EST GFR - AA 105 Result Comment: GFR Calc LAB L501.1300 10-20 RATIO High BUN/CRE 23.3 LAB L501.2200 8.5-10.1 mg/dL CA Normal 8.7 LAB L501.5300 136-145 mmol/L NA Normal 140 LAB L501.5600 3.5-5.1 mmol/L Low K 3.4 LAB L501.5900 98-107 mmol/L CL Normal 106 LAB L501.6100 21.0-32.0 mmol/L Normal CO2 25.0 LAB L501.6200 5-15 Normal GAP 9 Performed By: #### L500.2500 #### [facility] [address] [facility], [address] 12 LEAD ELECTROCARDIOGRAM Observed: 01/14/2018 Status: F Source: [place] 3:34 PM [facility] REPOSITORY [facility] Cardiovascular Services [address] [place] [id number] 12 Lead EKG 01/07/18 0922 MR#: [id number] Acct: [id number] Name: MIKALA WILSON Rep #: [id number] : 1940 77 From: Abhishek Ayoub MD Attending Dr: Carlos Ruiz MD Status: DIS IN Ordering Dr: Attila Pinon DO Date: 01/07/18 Location: 3 Sex: M C Admitted: 01/07/18 Test Reason : FALL Blood Pressure : / mmHG Vent. Rate : 075 BPM Atrial Rate : 081 BPM P-R Int : 000 ms QRS Dur : 128 ms QT Int : 484 ms P-R-T Axes : 000 -24 074 degrees QTc Int : 540 ms Junctional rhythm Right bundle branch block Minimal voltage criteria for LVH, may be normal variant Abnormal ECG Confirmed by ABHISHEK AYOUB MD ([id number]), multimedia editor IZZY SNYDER ([id number]) on 01/14/2018 3:34:37 PM Referred By: Brissa Santoro Confirmed By:ABHISHEK AYOUB MD 01/14/18 1534 Date Abhishek Ayoub MD CC: Lei Funes DO; Carlos Ruiz MD; Attila Pinon DO Signed BASIC METABOLIC Collected: 01/12/2018 Status: F Source: [place] PROFILE (BMP) 4:55 AM [facility] REPOSITORY TYPE CODE TESTS RESULT OUT OF RANGE REFERENCE UNITS LAB L501.0100 74-106 mg/dL Normal GLU 80 Result Comment: Please note revised GLUCOSE reference range effective 2017. LAB L501.1000 7-18 mg/dL High BUN 19 LAB L501.1100 0.70-1.30 mg/dL Normal CREAT,SERUM 0.97 Result Comment: The validity of the calculated GFR AND GFRAA in patients over 70 years has not been determined. Clinical correlation is essential. LAB L501.1110 >60 mL/min Normal EST GFR 80 Result Comment: Non- GFR Calc LAB L501.1115 >60 mL/min Normal EST GFR - AA 96 Result Comment: GFR Calc LAB L501.1300 10-20 RATIO Normal BUN/CRE 19.5 LAB L501.2200 8.5-10.1 mg/dL CA Normal 8.6 LAB L501.5300 136-145 mmol/L NA Normal 138 LAB L501.5600 3.5-5.1 mmol/L K Normal 3.8 LAB L501.5900 98-107 mmol/L CL Normal 104 LAB L501.6100 21.0-32.0 mmol/L Normal CO2 23.0 LAB L501.6200 5-15 Normal GAP 11 Performed By: #### L500.2500 #### [facility] [address] [place], [address] CBC-COMPLETE BLOOD CNT Collected: 01/12/2018 Status: F Source: [place] NO DIFF 4:55 AM [facility] REPOSITORY TYPE CODE TESTS RESULT OUT OF RANGE REFERENCE UNITS LAB L100.1000 4.4-11.0 K/mm3 Low WBC 4.3 LAB L100.1200 4.6-6.2 M/mm3 Low RBC 3.42 LAB L100.1300 13.0-16.5 g/dl Low HGB 9.8 LAB L100.1400 40-54 % Low HCT 30.2 LAB L100.1500 80-94 fL Normal MCV 88.3 LAB L100.1600 27.0-32.0 pg Normal MCH 28.7 LAB L100.1700 32-36 g/gl Normal MCHC 32.5 LAB L100.1810 11.6-14.6 % High RDW CV 17.1 LAB L100.1820 35.1-43.9 fl High RDW SD 53.4 LAB L100.1900 150-450 K/mm3 Normal PLT 169 LAB L100.2000 6.2-12.0 fl Normal MPV 11.1 Performed By: #### L100.0500 #### [facility] [address] [place], [address] DISCHARGE SUMMARY Observed: 01/10/2018 Status: F Source: [place] 12:32 PM [facility] REPOSITORY [facility] Medical Records Department [address] [place] [address] Discharge Summary 01/10/18 0910 MR#: [id number] Acct: [id number] Name: MIKALA WILSON Rep #: [id number] : 1940 77 From: Carlos Ruiz MD PCP: Lei Funes DO Status: DIS IN Y Location: VT3 KL314-3 Discharge Date and Diagnosis Date of Admission: 01/07/18 Date of Discharge: 01/10/18 - Primary Discharge Diagnosis 1. Left sided lateral fourth, fifth and sixth rib fractures; no pneumothorax: 2. Left pubic superior ramus and inferior ramus comminuted fracture extending into the right side of the pubis; due to fall complicated with underlying osteoporosis. - Secondary Discharge Diagnosis Chronic Problems (Last Reviewed 12/22/17 @ 16:05 by Brissa Santoro NP-C) Paroxysmal atrial fibrillation (Chronic) S/P MAZE procedure in 2016; Sick sinus syndrome (Chronic) CLEMENT (obstructive sleep apnea) (Chronic) Congestive heart failure, unspecified (Chronic) Other secondary pulmonary hypertension (Chronic) Nonrheumatic mitral valve regurgitation (Chronic) Nonrheumatic aortic (valve) stenosis (Chronic) Nonrheumatic aortic (valve) insufficiency (Chronic) Carotid artery stenosis (Chronic) Chronic atrial fibrillation (Chronic) Atherosclerotic heart disease of [place] coronary artery without angina pectoris (Chronic) History of maze procedure (Chronic) mitral valve repair and MAZE procedure 01/24/[address] Tolliver @ [facility] UGIB (upper gastrointestinal bleed) (Chronic) Duodenal ulcer (Chronic) Physical debility (Chronic) Supratherapeutic INR (Chronic) Hypokalemia (Chronic) Pancytopenia (Chronic) Symptomatic anemia (Chronic) Sepsis (Chronic) Hyperlipidemia (Chronic) Status post placement of cardiac pacemaker (Chronic) Permanent pacemaker placement 02/02/16 @ [facility] Status post mitral valve repair (Chronic) mitral valve repair and MAZE procedure 01/24/[address] 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 Patient denies loss of consciousness or hitting her head. Patient complain of pain over left chest and left hip. EKG shows normal sinus rhythm with wide QRS with right bundle branch block. Patient has left subclavicular pacemaker. In ED, chest CT scan was done and shows nondisplaced and short of left-sided lateral fourth fifth and sixth rib fractures. No pneumothorax. Lungs are adequately inflated and clear. There was also mention of a spiculated soft tissue nodule in the right middle lobe and appears more spiculated than previous 2015. Left hip/pelvis x-ray shows fracture of superior ramus of left pelvis CT head does not show acute change. Patient is on Coumadin for A. fib and INR is 1.4. Patient was further [facility]. Patient was seen and examined today. No chest pain/shortness of breath. No fever or chills. Patient sitting on the recliner. General: Alert, Oriented x3, Cooperative HEENT: Atraumatic, PERRLA, EOMI, Normocephalic Neck: Supple, No JVD, Negative Carotid Bruits Lungs: Clear to auscultation, No rhonchi, No wheeze, No rales, air entry equal bilaterally. No superficial tenderness on ribs, on left side. Cardiovascular: Regular rate, Regular Rhythm, Normal S1, Normal S2, No murmurs Abdomen: Bowel Sounds Present, Soft, Non Tender, Non-Distended Extremities: No edema, Capillary Refill Less than 3 Seconds Skin: No rashes, No breakdown Musculoskeletal: No Tenderness to Palpation of Joints or Extremities Neurological: Cranial nerves II-XII grossly intact Psych/Mental Status: Normal Affect, Appropriate 1. Left sided lateral fourth, fifth and sixth rib fractures; no pneumothorax: [facility] Incentive spirometry. Pain control. Repeat chest x-ray PA and lateral was done on 01/08 and shows no pneumothorax, no acute cardiopulmonary disease. Can continue CPAP at night. 2. Left pubic superior ramus and inferior ramus comminuted fracture extending into the right side of the pubis: Left pelvis/hip x-ray also reported as no hip fracture but hard to determine on x-ray imaging. Discussed with the orthopedic surgeon, Dr. Eb Snyder and he suggested MRI left pelvis and hip but could not be done as patient has pacemaker and difficulty in laying down with ribs fracture. CT left pelvis and left hip without contrast was done and reported as comminuted fracture in distal left superior pubic ramus extending into the right side of the pubis. Comminuted fracture of the left inferior pubic ramus. No other fractures seen. Intact symphysis pubis. No dislocation. PT and OT was evaluated. Pain control. Follow-up with orthopedic surgeon, Dr. Eb Snyder as an outpatient. 3. Recent admission with acute combined hypoxic and hypercarbic respiratory leave secondary to pneumonia and acute heart failure with reduced ejection fraction:: Patient had recent echo which shows EF 40% with moderate concentric LVH, mild global left ventricular systolic dysfunction which was tolerated from previous EF 50% in 2016. Patient also has moderately dilated right ventricle, LA severely enlarged, right atrium severely enlarged. Mild to moderate MS with mild MR. Moderate pulmonary hypertension, RVSP 45 mmHg with severe 3+ TR. continue his cardiac medications. 4. Cardiac conditions: Coronary atherosclerosis, paroxysmal A. 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 PT/INR continue to be low even on 10 mg Coumadin. Again increased to 7.5 mg daily. Follow-up INR daily. Follow with PCP to adjust the dose of Coumadin accordingly. 5. Diabetes mellitus type 2: Accu-Chek before meals and at bedtime cover with NovoLog sliding scale. On glimepiride 4 mg daily. If blood sugar remains high in the evening or dinnertime can put on glimepiride 2 mg with dinner. 6. Other comorbidities include history of duodenal ulcer, dyslipidemia, and obstructive sleep apnea: Positive pressure ventilation is contraindicated and therefore Discharge medication reconciliation done. Discharge follow- up instructions completed. Patient is being discharged to SNF Discharge medications discussed with the patient. Follow- up labs discussed with the patient. Total time spent, exact 35 minutes on discharge meds reconciliation, examination, review of imaging and blood test and discussion with the patient on follow-up instructions. Home Medications: Medications to take at Discharge aspirin 81 mg tablet,delayed release 81 mg PO QDAY 07/24/17 sertraline 100 mg tablet 100 mg PO QDAY 30 Days #30 tab 07/24/17 Cilostazol [Pletal] 100 mg PO BID 12/07/17 Albuterol Inhaler [Ventolin Hfa] 1 - 2 puff INHALATION Q4H PRN PRN #1 inhaler 12/11/17 furosemide 40 mg tablet 40 mg PO DAILY 12/22/17 Carvedilol [Coreg] 6.25 mg PO BID 01/07/18 Glimepiride [Amaryl] 4 mg PO DAILY@0800 01/07/18 Lisinopril [Zestril] 10 mg PO DAILY 01/07/18 Metformin HCl [Glucophage] 500 mg PO BIDCM 01/07/18 Pioglitazone [Actos] 30 mg PO DAILY@0800 01/07/18 Potassium Chloride [K-Dur] 10 meq PO DAILY 01/07/18 Warfarin [Coumadin] 7.5 mg PO WETHFR 01/07/18 Acetaminophen [Tylenol Tablet] 650 mg PO Q6H PRN PRN tablet 01/09/18 Docusate Sodium [Colace] 200 mg PO BID PRN PRN capsule 01/09/18 Polyethylene Glycol 3350 [Miralax] 17 gm PO DAILY PRN PRN packet 01/09/18 traMADol [Ultram] 50 mg PO Q6H PRN PRN #7 tab 01/09/18 Insulin Lispro [Humalog KwikPen] See Protocol SQ ACHS insuln.pen 01/10/18 Warfarin [Coumadin] 7.5 mg PO SUMOTUSA #0 01/10/18 Following Prescrptions Were Given to Patient: traMADol [Ultram] 50 mg PO Q6H PRN PRN #7 tab PRN Reason: Severe Pain (-01/14) Other Amb Orders: Prothrombin Time w/INR Time Frame: 01/11/18, Location: Laboratory Primary Care Physician: Lei Funes DO [Primary Care Provider] - Please follow up with your Primary Care Physician in: in 1- 2 weeks Please Follow Up With: Eb Snyder MD When: in 2 Weeks for pubic bones fracture Medical Necessity - Tobacco Use Smoking Status: Former smoker Meaningful Use Info Meaningful Use Diagnoses (Choose all that apply): None applicable Code Visit Inpatient E AND M: 85623 Disch Hosp 01/10/18 1232 <Electronically signed by Carlos Ruiz MD> Date Carlos Ruiz MD Cosigner Signature (if applicable): Date CC: Lei Funes DO; Carlos Ruiz MD Signed [facility] Observed: 01/10/2018 Status: F [facility] 9[facility] Medical Records Department [address] [place] [address] Transfer to [facility] Care MR#: [id number] Acct: [id number] Name: MIKALA WILSON Rep #: [id number] : 1940 77 From: Carlos Ruiz MD PCP: Lei Funes DO Status: ADM IN MIKALA WILSON (Patient) (Health Ins. Claim No.) (Day of Discharge to Facility) Certification of patient admission REQUIRED AT TIME OF ADMISSION. I CERTIFY THAT POST-HOSPITAL ECF SERVICES ARE REQUIRED TO BE GIVEN ON AN IN-PATIENT BASIS BECAUSE OF THE ABOVE NAMED PATIENT'S NEED FOR DETENTION CARE ON A CONTINUING BASIS FOR THE CONDITION(S) FOR WHICH HE/SHE WAS RECEIVING IN-PATIENT HOSPITAL SERVICES PRIOR TO HIS/HER TRANSFER TO THE F. 01/10/18 0910 <Electronically signed by Carlos Ruiz MD> Date Carlos Ruiz MD - Diet 01/07/18 12:22 Diet: Cardiac/Low Cholesterol Type of Dietary Supplement:: Ensure Complete Is pt able to select menu?: Yes - Routine Orders/Code Status Suppository Type: Dulcolax 10mg Suppository Frequency: Daily PRN Routine Lab Work: CBC - Weekly, BMP - Weekly on diuretics and lisinopril, INR - daily until INR therapeutic. Adjust the dose of Coumadin with PCP. - Therapies Extremity Affected:: Bilateral Lower Physical Therapy: Eval and Treat Occupational Therapy: Eval and Treat Speech Therapy: Eval and Treat - Allergies/Procedures Done in Hospital Allergies/Adverse Reactions: Allergies No Known Allergies Allergy (Verified 01/07/18 07:59) - Type of Care/Length of Stay Estimated LOS: Convalescent Care Less Than 30 days Type of Care Needed: Skilled Rehab Potential: Good Prognosis: Good - Additional Orders/Day of Discharge Day of Discharge: 01/10/18 - Follow Up Care Primary Care Physician: Lei Funes DO [Primary Care Provider] - Please follow up with your Primary Care Physician in: in 1- 2 weeks Please Follow Up With: Eb Snyder MD When: in 2 Weeks for pubic bones fracture 01/10/18 0910 <Electronically signed by Carlos Ruiz MD> Date Carlos Ruiz MD CC: Lei Funes DO; Eb Snyder MD Signed PROTHROMBIN TIME W/INR Collected: 01/10/2018 Status: F Source: [place] 7:25 AM [facility] REPOSITORY TYPE CODE TESTS RESULT OUT OF RANGE REFERENCE UNITS LAB L300.4150 11.7-14.9 SECONDS High PROTIME 16.0 LAB L300.4200 Normal INR 1.3 Performed By: #### L300.3900 #### [facility] [address] [place], [address] CBC W/DIFF, AUTOMATED Collected: 01/10/2018 Status: F Source: [place] 7:25 AM [facility] REPOSITORY TYPE CODE TESTS RESULT OUT OF RANGE REFERENCE UNITS LAB L100.1000 4.4-11.0 K/mm3 Normal WBC 4.8 LAB L100.1200 4.6-6.2 M/mm3 Low RBC 3.58 LAB L100.1300 13.0-16.5 g/dl Low HGB 10.1 LAB L100.1400 40-54 % Low HCT 31.0 LAB L100.1500 80-94 fL Normal MCV 86.6 LAB L100.1600 27.0-32.0 pg Normal MCH 28.2 LAB L100.1700 32-36 g/gl Normal MCHC 32.6 LAB L100.1810 11.6-14.6 % High RDW CV 16.6 LAB L100.1820 35.1-43.9 fl High RDW SD 51.1 LAB L100.1900 150-450 K/mm3 Normal PLT 165 LAB L100.2000 6.2-12.0 fl Normal MPV 10.8 LAB L100.2100 47-70 % High NEUT% 75.5 LAB L100.2200 19-41 % Low LY% 13.0 LAB L100.2300 0-10 % Normal MONO% 9.6 LAB L100.2400 0-5 % Normal EO% 1.3 LAB L100.2500 0-1 % Normal BASO% 0.2 LAB L100.2550 0.0-0.9 % Normal IM GRAN % 0.400 Result Comment: IG% - Immature Granulocytes (promyelocytes, myelocytes and metamyelocytes) > 1% indicates that a LEFT SHIFT is Present. LAB L100.2620 2.0-7.7 X10 3/uL Normal Absolute Neut 3.6 LAB L100.2720 0.83-4.51 X10 3/ul Low Absolute Lymph 0.62 Performed By: #### L100.0100 #### [facility] [address] [facility] [address] HEMOGLOBIN A1C Collected: 01/10/2018 Status: F Source: [place] 7:25 AM [facility]POS[facility] TYPE CODE TESTS RESULT OUT OF RANGE REFERENCE UNITS LAB L501.9985 4.2-6.3 % High HGB A1C 7.5 Performed By: #### L501.9985 #### [facility] [address] [place], [address] BEDSIDE GLUCOSE Collected: 01/10/2018 Status: F Source: [place] 6:40 AM [facility] REPOSITORY TYPE CODE TESTS RESULT OUT OF RANGE REFERENCE UNITS LAB L501.080 70-110 mg/dL Normal BEDSIDE GLU 84 Result Comment: MANAGEMENT OF PATIENT CARE PER NURSING PROTOCOL Performed By: #### L501.080 #### [facility] Point of Care [address] [place] [address] BEDSIDE GLUCOSE Collected: 01/09/2018 Status: F Source: [place] 9:28 PM [facility] REPOSITORY TYPE CODE TESTS RESULT OUT OF REFERENCE UNITS RANGE LAB L501.080 70-110 mg/dL High BEDSIDE GLU 262 Result Comment: MANAGEMENT OF PATIENT CARE PER NURSING PROTOCOL Performed By: #### L501.080 #### [facility] Point of Care [address] [place] [address] BEDSIDE GLUCOSE Collected: 01/09/2018 Status: F Source: OLMAN 4:04 PM [facility] TYPE CODE TESTS RESULT OUT OF REFERENCE UNITS RANGE LAB L501.080 70-110 mg/dL High BEDSIDE GLU 319 Result Comment: MANAGEMENT OF PATIENT CARE PER NURSING PROTOCOL Performed By: #### L501.080 #### [facility] Point of Care [address] [place] [address] PROTHROMBIN TIME W/INR Collected: 01/09/2018 Status: F Source: [place] 7:18 AM [facility] REPOSITORY TYPE CODE TESTS RESULT OUT OF RANGE REFERENCE UNITS LAB L300.4150 11.7-14.9 SECONDS High PROTIME 16.6 LAB L300.4200 Normal INR 1.3 Performed By: #### L300.3900 #### [facility] [address] [facility] [place], [address] PROTHROMBIN TIME W/INR Collected: 01/08/2018 Status: F Source: [place] 5:31 PM [facility] REPOSITORY TYPE CODE TESTS RESULT OUT OF RANGE REFERENCE UNITS LAB L300.4150 11.7-14.9 SECONDS High PROTIME 17.1 LAB L300.4200 Normal INR 1.4 Performed By: #### L300.3900 #### [facility] [address] [facility] [place], [address] EMERGENCY DEPARTMENT Observed: 01/08/2018 Status: F Source: [place] SUMMARY 4:21 PM [facility] REPOSITORY [facility] Medical Records Department [address] [place] [address] [place] [address] Emergency Department Summary 01/07/18 0833 MR#: [id number] Acct: [id number] Name: MIKALA WILSON Rep #: [id number] : 1940 77 From: Attila Pinon DO PCP: Lei Funes DO Status: ADM IN - ER Visit Summary Date of Service: 01/07/18 Chief Complaint: [Fall] History of Present Illness: The patient is a 77 M [presents the emergency department with complaint of a fall that occurred approximately 7:30 PM last evening. Patient apparently was taking his trash out to the curb when he turned and tripped over the curb falling to the ground on the concrete. Patient does not believe he struck his head. There is no loss of consciousness. Patient had a hard time getting up in 1 of the neighbors came over to let the know that the patient had fallen in the street. Another individual stopped and help get the patient up on his feet and he was able to carefully walk into the house. Patient now complaining of pain in his left ribs as well as the left hip with ambulation. Patient having a hard time bearing weight on the left hip. Patient denies any chest pain or shortness of breath. He denies any neck pain. He denies any paresthesias. Patient is on Coumadin due to history of A. fib.] Physical Examination: [HEENT-PERRLA, EOMI. Cranial nerves II through XII grossly intact. TMs clear. Mucous membranes moist. No adenopathy. C-spine tenderness on palpation and he has normal active range of motion is painless. Cardiovascular-regular rate and rhythm without murmur or ectopy Lungs-clear to auscultation, chest wall stable without crepitus or subcu emphysema. Patient does have tenderness palpation over the left anterior chest wall and to the mid axillary line. Abdomen-normoactive bowel sounds, soft, nontender, no rebound or rigidity, no peritoneal signs. Back exam-patient has no tenderness over the thoracic or lumbar spine. Extremities-intact 4, normal range of motion, normal pulses, atraumatic. There is no obvious external rotation or shortening of the left lower extremity. Patient has mild discomfort on palpation of the left hip. Patient has some discomfort with logrolling. He is neurovascular intact distally. There is no ecchymosis or bruising noted over the hip.] Test Results: [EKG obtained arrival showed a sinus rhythm with a ventricular rate of 75 bpm with a right bundle branch block and wide QRS criteria. CBC with differential showed a white count of 5.9, hemoglobin 10.9, hematocrit 38, platelets 189. Chemistries unremarkable. INR was 1.4. Troponin was less than 0.015. CT scan of the brain showed chronic involutional changes. CT of the chest showed left fifth, sixth, and seventh rib fractures. X-rays of the left hip and pelvis showed a fracture of the superior pubic ramus but no definitive hip fracture.] Emergency Department Course and Treatment: [Patient refused pain medication in the emergency department] Treatment Plan: [Admit] Disposition: Admit for pain control and possible physical therapy and rehab [] Impression: [Mechanical fall Left superior pubic ramus fracture Left rib fractures Coumadin coagulopathy] This note was generated with [employer] dictation software. It may contain incorrect words, spelling, and punctuation that were not noted in review of the chart prior to signing ED Disposition - Plan for ED Patient: Disposition: Acute Care Hospital [facility] Chief Complaint: Fall Referrals: Lei Funes DO [Primary Care Provider] - What to do if you have Problems For any increased pain, shortness of breath, bleeding, nausea or vomiting, chest pain, or any unexpected problems, contact your Primary Care Provider. Call [facility] ([phone]) or report to the closest Emergency Room. Call 911 if necessary. 01/08/18 1621 <Electronically signed by Attila Pinon DO> Date Attila Pinon DO Cosigner Signature (If Indicated): Date CC: Lei Funes DO CHEST PA AND LATERAL Observed: 01/08/2018 Status: F Source: [place] 9:02 AM [facility] Imaging Services [address] [place] [address] Chest PA and Lateral MR#: [id number] Acct: [id number] Name: MIKALA WILSON Rep #: [id number] : 1940 M 77 From: Jasiel Olvera DO PCP: Lei Funes DO Status: ADM IN Study: Chest PA and Lateral Date of Exam: 01/08/18 Exam# [id number] Ordering Dr: Carlos Ruiz MD STUDY: X-RAY CHEST REASON FOR EXAM: Male, 77 years old. Fall with left rib fracture, rule out pneumothorax TECHNIQUE: PA and lateral views of the chest. COMPARISON: December 07, 2017 FINDINGS: No evidence of pneumothorax. Lungs are adequately inflated without acute airspace disease. Stable mild chronic interstitial changes are noted. There is no demonstrated pleural abnormality. Sternal cerclage wires are present from a prior sternotomy. Stable cardiomegaly. Stable left chest wall pacing device. Normal mediastinum and jerrica. Normal visualized pulmonary arteries. Normal visualized aortic arch and descending thoracic aorta. Normal visualized thoracic spine. No definite evidence of rib fracture on today's exam There is no demonstrated abnormality of the visualized soft tissue structures of the upper abdomen. RAD/Chest PA and Lateral IMPRESSION: No pneumothorax. No acute cardiopulmonary disease. Stable chronic findings Electronically Signed: Jasiel Olvera DO at 12:10 EDT Tel , Service support , CC: Lei Funes DO; Carlos Ruiz MD Geosciences Professor: Signed BASIC METABOLIC Collected: 01/08/2018 Status: F Source: [place] PROFILE (BMP) 4:55 AM [facility] TYPE CODE TESTS RESULT OUT OF RANGE REFERENCE UNITS LAB L501.0100 74-106 mg/dL Normal GLU 99 Result Comment: Please note revised GLUCOSE reference range effective 2017. LAB L501.1000 7-18 mg/dL High BUN 22 LAB L501.1100 0.70-1.30 mg/dL Normal CREAT,SERUM 0.95 Result Comment: The validity of the calculated GFR AND GFRAA in patients over 70 years has not been determined. Clinical correlation is essential. LAB L501.1110 >60 mL/min Normal EST GFR 82 Result Comment: Non- GFR Calc LAB L501.1115 >60 mL/min Normal EST GFR - AA 99 Result Comment: GFR Calc LAB L501.1255 ml/min Normal Estimated CRCL 61.85 LAB L501.1300 10-20 RATIO High BUN/CRE 23.1 LAB L501.2200 8.5-10 mg/dL Normal .1 CA 8.8 LAB L501.5300 136-14 mmol/L Normal 5 NA 138 LAB L501.5600 3.5-5. mmol/L Normal 1 K 4.4 LAB L501.5900 98-107 mmol/L Normal CL 104 LAB L501.6100 21.0-3 mmol/L Normal 2.0 CO2 26.0 LAB L501.6200 5-15 Normal GAP 8 Performed By: #### L500.2500 #### [facility] [place], [address] CBC W/DIFF, AUTOMATED Collected: 01/08/2018 Status: F Source: [place] 4:55 AM [facility] TYPE CODE TESTS RESULT OUT OF RANGE REFERENCE UNITS LAB L100.1000 4.4-11.0 K/mm3 Low WBC 4.3 LAB L100.1200 4.6-6.2 M/mm3 Low RBC 3.69 LAB L100.1300 13.0-16.5 g/dl Low HGB 10.5 LAB L100.1400 40-54 % Low HCT 32.3 LAB L100.1500 80-94 fL Normal MCV 87.5 LAB L100.1600 27.0-32.0 pg Normal MCH 28.5 LAB L100.1700 32-36 g/gl Normal MCHC 32.5 LAB L100.1810 11.6-14.6 % High RDW CV 16.8 LAB L100.1820 35.1-43.9 fl High RDW SD 52.6 LAB L100.1900 150-450 K/mm3 Normal PLT 153 LAB L100.2000 6.2-12.0 fl Normal MPV 10.1 LAB L100.2100 47-70 % Normal NEUT% 65.7 LAB L100.2200 19-41 % Low LY% 16.7 LAB L100.2300 0-10 % High MONO% 14.8 LAB L100.2400 0-5 % Normal EO% 1.6 LAB L100.2500 0-1 % Normal BASO% 0.5 LAB L100.2550 0.0-0.9 % Normal IM GRAN % 0.700 Result Comment: IG% - Immature Granulocytes (promyelocytes, myelocytes and metamyelocytes) > 1% indicates that a LEFT SHIFT is Present. LAB L100.2620 2.0-7.7 X10 3/uL Normal Absolute Neut 2.8 LAB L100.2720 0.83-4.51 X10 3/ul Low Absolute Lymph 0.72 Performed By: #### L100.0100 #### [facility] [address] [place], [address] HISTORY AND PHYSICAL Observed: 01/07/2018 Status: F Source: [place] EXAM 5:07 PM [facility] Medical Records Department [address] [place] [address] History and Physical 01/07/18 1212 MR#: [id number] Acct: [id number] Name: MIKALA WILSON Rep #: [id number] : 1940 77 From: Carlos Ruiz MD PCP: Lei Funes DO Status: ADM IN Y Location: [place] [address] ADDENDUM by Carlos Ruiz MD on 01/07/18 at [address] of pelvis and left lower extremity reviewed. Clinical Impression(s) from Imaging Studies Lower Extremity CT 01/07/18 13:27 IMPRESSION: Confirmation of fractures of the superior and inferior left pubic rami. Pelvis CT 01/07/18 13:27 IMPRESSION: Comminuted fractures are seen of the distal left superior pubic ramus extending into the right side of the pubis. Comminuted fractures are seen of the left inferior pubic ramus. No other acute abnormalities. 01/07/18 1707 <Electronically signed by Carlos Ruiz MD> Date Carlos Ruiz MD cc: Lei Funes DO; Carlos Ruiz MD * Signed History of Present Illness Date of Admission: 01/07/18 Chief Complaint: Patient had fall on left side of chest and hip. The patient is a 77 year old M with multiple comorbidities including recent admission in December 2017 for acute hypoxic and hypercarbic respiratory failure secondary to pneumonia and acute heart failure with reduced ejection fraction was brought into ER after he fell down yesterday night when he tripped and fell on the concrete while trying to pull trash can. Patient denies loss of consciousness or hitting her head. Patient complain of pain over left chest and left hip. EKG shows normal sinus rhythm with wide QRS with right bundle branch block. Patient has left subclavicular pacemaker. In ED, chest CT scan was done and shows nondisplaced and short of left-sided lateral fourth fifth and sixth rib fractures. No pneumothorax. Lungs are adequately inflated and clear. There was also mention of a spiculated soft tissue nodule in the right middle lobe and appears more spiculated than previous 2015. Left hip/pelvis x-ray shows fracture of superior ramus of left pelvis CT head does not show acute change. Patient is on Coumadin for A. fib and INR is 1.4. [] Past Medical History Past Medical History (Chronic Problems): Chronic Problems (Last Reviewed 12/22/17 @ 16:05 by Brissa Santoro GASTROENTEROLOGY MANAGER-C) Paroxysmal atrial fibrillation (Chronic) S/P MAZE procedure in 2016; Sick sinus syndrome (Chronic) CLEMENT (obstructive sleep apnea) (Chronic) Congestive heart failure, unspecified (Chronic) Other secondary pulmonary hypertension (Chronic) Nonrheumatic mitral valve regurgitation (Chronic) Nonrheumatic aortic (valve) stenosis (Chronic) Nonrheumatic aortic (valve) insufficiency (Chronic) Carotid artery stenosis (Chronic) Chronic atrial fibrillation (Chronic) Atherosclerotic heart disease of [place] coronary artery without angina pectoris (Chronic) History of maze procedure (Chronic) mitral valve repair and MAZE procedure 01/24/[address] Tolliver @ [facility] UGIB (upper gastrointestinal bleed) (Chronic) Duodenal ulcer (Chronic) Physical debility (Chronic) Supratherapeutic INR (Chronic) Hypokalemia (Chronic) Pancytopenia (Chronic) Symptomatic anemia (Chronic) Sepsis (Chronic) Hyperlipidemia (Chronic) Status post placement of cardiac pacemaker (Chronic) Permanent pacemaker placement 02/02/16 @ [facility] Status post mitral valve repair (Chronic) mitral valve repair and MAZE procedure 01/24/[address] Tolliver @ [facility] 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) Aortic Valve Replacement w/ 23-mm Jay-Aragon pericardial valve Atrial fibrillation (Chronic) DM2 (diabetes mellitus, type 2) (Chronic) Medical History: Medical History (Last Reviewed 12/22/17 @ 16:05 by Brissa Santoro NP-C) Sick sinus syndrome (Chronic) I49.5 CLEMENT (obstructive sleep apnea) (Chronic) G47.33 Congestive heart failure, unspecified (Chronic) I50.9 Other secondary pulmonary hypertension (Chronic) I27.29 Nonrheumatic mitral valve regurgitation (Chronic) I34.0 Nonrheumatic aortic (valve) stenosis (Chronic) I35.0 Nonrheumatic aortic (valve) insufficiency (Chronic) I35.1 Carotid artery stenosis (Chronic) I65.29 Chronic atrial fibrillation (Chronic) I48.2 Atherosclerotic heart disease of [place] coronary artery without angina pectoris (Chronic) I25.10 Hyperlipidemia (Chronic) E78.5 DM2 (diabetes mellitus, type 2) (Chronic) E11.9 Hypothyroidism E03.9 Allergies No Known Allergies Allergy (Verified 01/07/18 07:59) Home Medications: Ambulatory Orders Medication Instructions Recorded aspirin 81 mg tablet,delayed 81 mg PO QDAY 07/24/17 release sertraline 100 mg tablet 100 mg PO QDAY 30 Days #30 tab 07/24/17 Surgical History: Surgical History (Last Reviewed 12/22/17 @ 16:05 by Brissa Santoro GASTROENTEROLOGY MANAGER-C) History of maze procedure (Chronic) Z98.890 mitral valve repair and MAZE procedure 01/24/[address] Tolliver @ [facility] Status post placement of cardiac pacemaker (Chronic) Z95.0 Permanent pacemaker placement 02/02/16 @ [facility] Status post mitral valve repair (Chronic) Z98.890 mitral valve repair and MAZE procedure 01/24/[address] 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 Psychiatric History: No pertinent psych hx Smoking Status: Former smoker - *Family History Maternal Family History: Family History (Last Reviewed 12/22/17 @ 16:05 by Brissa Santoro NP-C) Mother Myocardial infarction CAD (coronary artery disease) Hypertension Sister Hypertension CVA (cerebral vascular accident) Son Diabetes History Items: Heart Disease, Hypertension Paternal Family History: Family History (Last Reviewed 12/22/17 @ 16:05 by ALEX Huber) Mother Myocardial infarction CAD (coronary artery disease) Hypertension Sister Hypertension CVA (cerebral vascular accident) Son Diabetes History Items: No pertinent history Sibling Family History: Family History (Last Reviewed 12/22/17 @ 16:05 by ALEX Huber) Mother Myocardial infarction CAD (coronary artery disease) Hypertension Sister Hypertension CVA (cerebral vascular accident) Son Diabetes History Items: Hypertension, Stroke Offspring Family History: Family History (Last Reviewed 12/22/17 @ 16:05 by ALEX Huber) Mother Myocardial infarction CAD (coronary artery disease) Hypertension Sister Hypertension CVA (cerebral vascular accident) Son Diabetes History Items: Diabetes Review of Systems Constitutional: Denies: Chills, Fever, Weight Change HEENT: Denies: Head Aches, Sinus Congestion, Sinus Drainage Cardiovascular: Reports: Chest Pain. Denies: Palpitations Respiratory: Reports: Shortness of breath upon exertion. Denies: Cough, Shortness of breath at rest, Sputum production Gastrointestinal: Denies: Abdominal Pain, Nausea, Vomiting Genitourinary: Denies: Dysuria Musculoskeletal: Reports: Joint Pain, Joint Tenderness Skin: Denies: Rash, Wounds Neurological: Denies: Numbness, Tingling, Focal weakness Psychiatric: Denies: Anxiety, Depression, Homicidal Ideations, Suicidal Ideations Hematologic/ Lymphatic: Denies: Easy Bruising, Easy Bleeding VTE Information - Inpt Only VTE Present on Admission: No VTE Mechan Device Prophylaxis: None VTE Pharm Prophylaxis ordered?: Yes - Physical Exam General: Alert, Oriented x3, Cooperative HEENT: Atraumatic, PERRLA, EOMI, Normocephalic Neck: Supple, No JVD, Negative Carotid Bruits Lungs: Clear to auscultation, Normal air movement Cardiovascular: Regular rate, Normal S1, Normal S2, No murmurs, - - Left subclavicular pacemaker Abdomen: Bowel Sounds Present, Soft, Non Tender Extremities: Capillary Refill Less than 3 Seconds, Edema Skin: No rashes, No breakdown Musculoskeletal: Arthritic Changes, Tenderness - Tenderness over left lateral rib cage. No subcutaneous emphysema palpated. Neurological: Cranial nerves II-XII grossly intact, Neuro grossly intact Psych/Mental Status: Normal Affect, Appropriate Vital Signs Temp Pulse Resp BP Pulse Ox 97.7 F L 85 18 123/67 H 93 01/07/18 10:50 01/07/18 10:50 01/07/18 10:50 01/07/18 10:50 01/07/18 10:50 Oxygen Delivery Method Room Air Weight: 184 lb 8 oz Body Mass Index (BMI) 28.9 Finger Stick Blood Glucose 235 Laboratory Tests Past 24 Hrs Assessment/Plan All Active Problems (Last Reviewed 12/22/17 @ 16:05 by Brissa Santoro NP-C) Shortness of breath (Acute) retirement (current) use of anticoagulants (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 Patient denies loss of consciousness or hitting her head. Patient complain of pain over left chest and left hip. EKG shows normal sinus rhythm with wide QRS with right bundle branch block. Patient has left subclavicular pacemaker. In ED, chest CT scan was done and shows nondisplaced and short of left-sided lateral fourth fifth and sixth rib fractures. No pneumothorax. Lungs are adequately inflated and clear. There was also mention of a spiculated soft tissue nodule in the right middle lobe and appears more spiculated than previous 2015. Left hip/pelvis x-ray shows fracture of superior ramus of left pelvis CT head does not show acute change. Patient is on Coumadin for A. fib and INR is 1.4. 1. Left sided lateral fourth, fifth and sixth rib fractures: Patient is being admitted to regular MedSurg floor. Incentive spirometry. Pain control. We will repeat chest x-ray PA and lateral tomorrow. 2. Left pubic superior ramus fracture: Left pelvis/hip x- ray also reported as no hip fracture but hard to determine on imaging. Discussed with the orthopedic surgeon, Dr. Eb Snyder and he suggested MRI left pelvis and hip but could not be done as patient has pacemaker and difficulty in laying down with ribs fracture. CT left pelvis and left hip without contrast ordered. If it is pubic fracture, Dr. Snyder said he does not have to see while inpatient but if hip fracture he will see him. PT and OT ordered. Pain control. 3. Recent admission with acute combined hypoxic and hypercarbic respiratory leave secondary to pneumonia and acute heart failure with reduced ejection fraction:: Patient had recent echo which shows EF 40% with moderate concentric LVH, mild global left ventricular systolic dysfunction which was tolerated from previous EF 50% in 2016. Patient also has moderately dilated right ventricle, LA severely enlarged, right atrium severely enlarged. Mild to moderate MS with mild MR. Moderate pulmonary hypertension, RVSP 45 mmHg with severe 3+ TR we will continue his cardiac medications. 4. Cardiac conditions: Coronary atherosclerosis, paroxysmal A. 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 We will continue Coumadin and monitor INR daily. 5. Diabetes mellitus type 2: Accu-Chek before meals and at bedtime cover with NovoLog sliding scale. 6. Other comorbidities include history of duodenal ulcer, dyslipidemia, and obstructive sleep apnea: Positive pressure ventilation is contraindicated and therefore Do not put on CPAP. Home medication consideration. Multiple comorbidities complicates the present care and expect difficult and delay recovery DVT prophylaxis: On Coumadin Laboratory Results 01/07/18 08:20: PT 17.4 H, INR 1.4 01/07/18 08:40: WBC 5.9, RBC 3.94 L, Hgb 10.9 L, Hct 34.2 L, MCV 86.8, MCH 27.7, MCHC 31.9 L, RDW 16.8 H, RDW Differential 53.5 H, Plt Count 189, MPV 10.2, Immature Gran % (Auto) 0.200, Neut % (Auto) 75.9 H, Lymph % (Auto) 10.9 L, [place] % (Auto) 11.8 H, Eos % (Auto) 1.0, Baso % (Auto) 0.2, Absolute Neuts (auto) 4.4, Absolute Lymphs (auto) 0.64 L, Total Counted Not Reportable 01/07/18 08:40: Sodium 136, Potassium 4.5, Chloride 104, Carbon Dioxide 23.0, Anion Gap 9, BUN 24 H, Creatinine 1.18, Estim Creat Clear Calc 49.79, Est GFR (MDRD) Af Amer 77, Est GFR (MDRD) Non-Af 64, BUN/Creatinine Ratio 20.3 H, Glucose 184 H, Calcium 9.0, Troponin I < 0.015 Clinical Impression(s) from Imaging Studies Brain CT 01/07/18 08:16 IMPRESSION: Chronic involutional changes of the brain. Chest CT 01/07/18 08:16 IMPRESSION: 1. Nondisplaced and subtle left-sided lateral fourth, fifth, sixth rib fractures. No pneumothorax. 2. Lungs are adequately inflated and clear 3. Spiculated soft tissue nodule in the right middle lobe. This appears somewhat more spiculated than the exam in 2015. Malignancy is not fully excluded; consider PET/CT to further evaluate. 4. Decreased mediastinal lymphadenopathy Hip/Pelvis X-Ray 01/07/18 08:16 IMPRESSION: Left-sided pubic ramus fracture. No evidence of femoral neck fracture. Code Visit Inpatient E AND M: 95108 Subs Hosp L3 01/07/18 1406 <Electronically signed by Carlos Ruiz MD> Date Carlos Ruiz MD Cosigner Signature: Date (if applicable) CC: Lei Funes DO; Carlos Ruiz MD Signed EXTREMITY LOWER Observed: 01/07/2018 Status: F Source: [place] WITHOUT CONTRA 1:29 PM [facility] Imaging Services [address] [place] [address] Extremity Lower without Contra MR#: [id number] Acct: [id number] Name: MIKALA WILSON Rep #: [id number] : 1940 M 77 From: Oscar Diaz MD PCP: Lei Funes DO Status: ADM IN Study: Extremity Lower without Contra Date of Exam: 01/07/18 Exam# [id number] Ordering Dr: Carlos Ruiz MD Exam: CT of the left lower extremity. HISTORY: Fracture. Fall. COMPARISON: CT of the pelvis from the same day. Radiographs of the same day which already diagnosed left pubic rami fractures. FINDINGS: The CT scan confirms the previously seen fractures of the left superior pubic rami extending into and involving the left side of the pubis. There is also nondisplaced fracture of the distal inferior pubic ramus, and additional comminuted mildly displaced and angulated fractures of the more proximal left inferior pubic ramus. Normal appearance of the acetabulum and visualized left femur. Soft tissue images show minimal hemorrhage related to the pubic rami fractures. Radiotherapy seeds are seen in the prostate. CT/Extremity Lower without Contra IMPRESSION: Confirmation of fractures of the superior and inferior left pubic rami. Electronically Signed: Oscar Diaz MD at 15:50 EDT , Service support , CC: Lei Funes DO; Carlos Ruiz MD Geosciences Professor: Signed PELVIS WITHOUT IV Observed: 01/07/2018 Status: F Source: [place] CONTRAST 1:29 PM [facility] Imaging Services [address] [place] [address] Pelvis without IV Contrast MR#: [id number] Acct: [id number] Name: MIKALA WILSON Rep #: [id number] : 1940 M 77 From: Oscar Diaz MD PCP: Lei Funes DO Status: ADM IN Study: Pelvis without IV Contrast Date of Exam: 01/07/18 Exam# [id number] Ordering Dr: Carlos Ruiz MD STUDY: CT PELVIS WITHOUT CONTRAST REASON FOR EXAM: Male, 77 years old. Left hip fracture. RADIATION DOSAGE (If Supplied By Facility): CTDIvol = ( 24.54 ) mGy, DLP = ( 1410.48 ) mGycm TECHNIQUE: Transaxial imaging of the pelvis was performed with oral contrast, and without intravenous administration of contrast material. Individualized dose optimization techniques were used for this CT. COMPARISON: Radiographs of the same day which showed left pubic rami fractures.. FINDINGS: Comminuted fractures are seen of the distal left superior pubic ramus extending into the right side of the pubis. Comminuted fractures are seen of the left inferior pubic ramus. No other acute fractures are seen. No dislocations. Intact symphysis pubis. 2 cm cyst seen in the right head of the femur. Normal urinary bladder. Normal visualized small intestine. Normal visualized colon. There is no pelvic fluid. There is no pelvic mass lesion or lymphadenopathy. There is enlargement of the prostate gland. There are radiotherapy seeds in the prostate. There is diffuse atherosclerotic calcification of the pelvic arteries with elongation and tortuosity. Normal abdominal wall. CT/Pelvis without IV Contrast IMPRESSION: Comminuted fractures are seen of the distal left superior pubic ramus extending into the right side of the pubis. Comminuted fractures are seen of the left inferior pubic ramus. No other acute abnormalities. Electronically Signed: Oscar Diaz MD at 16:04 EDT , Service support , CC: Lei Funes DO; Carlos Ruiz MD Geosciences Professor: Signed CBC W/DIFF, AUTOMATED Collected: 01/07/2018 Status: F Source: [place] 8:40 AM [facility] TYPE CODE TESTS RESULT OUT OF RANGE REFERENCE UNITS LAB L100.1000 4.4-11.0 K/mm3 Normal WBC 5.9 LAB L100.1200 4.6-6.2 M/mm3 Low RBC 3.94 LAB L100.1300 13.0-16.5 g/dl Low HGB 10.9 LAB L100.1400 40-54 % Low HCT 34.2 LAB L100.1500 80-94 fL Normal MCV 86.8 LAB L100.1600 27.0-32.0 pg Normal MCH 27.7 LAB L100.1700 32-36 g/gl Low MCHC 31.9 LAB L100.1810 11.6-14.6 % High RDW CV 16.8 LAB L100.1820 35.1-43.9 fl High RDW SD 53.5 LAB L100.1900 150-450 K/mm3 Normal PLT 189 LAB L100.2000 6.2-12.0 fl Normal MPV 10.2 LAB L100.2100 47-70 % High NEUT% 75.9 LAB L100.2200 19-41 % Low LY% 10.9 LAB L100.2300 0-10 % High MONO% 11.8 LAB L100.2400 0-5 % Normal EO% 1.0 LAB L100.2500 0-1 % Normal BASO% 0.2 LAB L100.2550 0.0-0.9 % Normal IM GRAN % 0.200 Result Comment: IG% - Immature Granulocytes (promyelocytes, myelocytes and metamyelocytes) > 1% indicates that a LEFT SHIFT is Present. LAB L100.2620 2.0-7.7 X10 3/uL Normal Absolute Neut 4.4 LAB L100.2720 0.83-4.51 X10 3/ul Low Absolute Lymph 0.64 Performed By: #### L100.0100 #### [facility] [address] [place], [place], [address] BASIC METABOLIC Collected: 01/07/2018 Status: F Source: [place] PROFILE (BMP) 8:40 AM [facility] TYPE CODE TESTS RESULT OUT OF RANGE REFERENCE UNITS LAB L501.0100 74-106 mg/dL High GLU 184 Result Comment: Fasting Glucose result greater than or equal to 126 mg/dL suggests DIABETES MELLITUS per A.D.A. criteria. Please note revised GLUCOSE reference range effective 2017. LAB L501.1000 7-18 mg/dL High BUN 24 LAB L501.1100 0.70-1.30 mg/dL Normal CREAT,SERUM 1.18 Result Comment: The validity of the calculated GFR AND GFRAA in patients over 70 years has not been determined. Clinical correlation is essential. LAB L501.1110 >60 mL/min Normal EST GFR 64 Result Comment: Non- GFR Calc LAB L501.1115 >60 mL/min Normal EST GFR - AA 77 Result Comment: GFR Calc LAB L501.1255 ml/min Normal Estimated CRCL 49.79 LAB L501.1300 10-20 RATIO High BUN/CRE 20.3 LAB L501.2200 8.5-10 mg/dL Normal .1 CA 9.0 LAB L501.5300 136-14 mmol/L Normal 5 NA 136 LAB L501.5600 3.5-5. mmol/L Normal 1 K 4.5 LAB L501.5900 98-107 mmol/L Normal CL 104 LAB L501.6100 21.0-3 mmol/L Normal 2.0 CO2 23.0 LAB L501.6200 5-15 Normal GAP 9 Performed By: #### L500.2500, L501.4010 #### [facility] [address] [facility]. [place], [place], [address] TROPONIN-I Collected: 01/07/2018 Status: F Source: [place] 8:40 AM [facility] REPOSITORY TYPE CODE TESTS RESULT OUT OF RANGE REFERENCE UNITS LAB L501.4010 <0.045 ng/mL Normal < 0.015 TROPONIN-I Result Comment: TROPONIN-I EXPECTED VALUES <0.045 Negative 0.045 - 0.590 Consistent with Cardiac Damage > OR = 0.600 Critical Value Not every elevated troponin is indicative of LA. These values should be used with clinical judgement in examining the patient's clinical picture for diagnosis. To establish a diagnosis of LA versus myocardial injury, there must be a demonstrated rise and/or fall in the troponin values, in addition to ischemic symptoms, EKG changes, new regional wall motion abnormality, and/or angiographical evidence. PLEASE NOTE: REFERENCE RANGES EDITED 17 Performed By: #### L500.2500, L501.4010 #### [facility] [address] [place], [place], [address] PROTHROMBIN TIME W/INR Collected: 01/07/2018 Status: F Source: [place] 8:20 AM [facility] REPOSITORY TYPE CODE TESTS RESULT OUT OF RANGE REFERENCE UNITS LAB L300.4150 11.7-14.9 SECONDS High PROTIME 17.4 LAB L300.4200 Normal INR 1.4 Performed By: #### L300.3900 #### [facility] [address] [place], [address] BRAIN/HEAD WITHOUT Observed: 01/07/2018 Status: F Source: [place] CONTRAST 8:17 AM [facility] REPOSITORY [facility] [place] [address] Brain/Head without Contrast MR#: [id number] Acct: [id number] Name: MIKALA WILSON Rep #: [id number] : 1940 M 77 From: Jasiel Olvera DO PCP: Lei Funes DO Status: REG ER Study: Brain/Head without Contrast Date of Exam: 01/07/18 Exam# [id number] Ordering Dr: Attila Pinon DO STUDY: CT BRAIN WITHOUT CONTRAST REASON FOR EXAM: Male, 77 years old. Fall last night with head and rib pain RADIATION DOSAGE (If Supplied By Facility): CTDIvol = ( 44.99 ) mGy, DLP = ( 815.79 ) mGycm TECHNIQUE: Transaxial CT imaging of the brain was performed without administration of intravenous contrast material. Individualized dose optimization techniques were used for this CT. COMPARISON: 09/02/2017 FINDINGS: Normal soft tissue structures. Normal calvarium. There is mild cerebral atrophy with widening of the extra- axial spaces and ventricular dilatation. There are areas of decreased attenuation within the white matter tracts of the supratentorial brain, consistent with microvascular disease changes. Normal basal ganglia and thalami. Normal brainstem. There is mild cerebellar atrophy. There is no intracranial hemorrhage. There are no findings of an acute ischemic infarction. Normal visualized paranasal sinuses. 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 Electronically Signed: Jasiel Olvera DO at 9:21 EDT Tel , Service support , CC: Lei Funes DO; Attila Pinon DO Geosciences Professor: Signed CHEST WITHOUT Observed: 01/07/2018 Status: F Source: [place] CONTRAST 8:17 AM [facility] REPOSITORY [facility] Imaging Services [address] [place] [address] Chest without Contrast MR#: [id number] Acct: [id number] Name: MIKALA WILSON Rep #: [id number] : 1940 M 77 From: Jasiel Olvera DO PCP: Lei Funes DO Status: REG ER Study: Chest without Contrast Date of Exam: 01/07/18 Exam# [id number] Ordering Dr: Attila Pinon DO STUDY: CT CHEST WITHOUT CONTRAST REASON FOR EXAM: Male, 77 years old. Fall with left rib pain RADIATION DOSAGE (If Supplied By Facility): CTDIvol = ( 16.30 ) mGy, DLP = ( 288.49 ) mGycm TECHNIQUE: Transaxial imaging was performed without the administration of intravenous contrast material. Individualized dose optimization techniques were used for this CT. COMPARISON: 12/07/17 and 03/01/2015 FINDINGS: Lungs are adequately inflated without acute airspace disease. No pneumothorax. There is a spiculated soft tissue nodule in the inferior aspect of the right middle lobe measuring 10 x 7 mm. There is no demonstrated pleural abnormality. Moderate to severe cardiomegaly is noted. Left chest wall pacing device. Decreased size of mediastinal lymphadenopathy as compared to the exam from December. Normal hilar regions. Normal unenhanced pulmonary arteries. There is atherosclerotic calcification of the aortic arch with tortuosity and elongation of the aortic arch and descending thoracic aorta. Barely visible nondisplaced left-sided lateral fourth, fifth, sixth rib fractures. No other rib fractures are noted. No evidence of thoracic spine compression fracture. There is no demonstrated abnormality of the visualized upper abdomen. CT/Chest without Contrast IMPRESSION: 1. Nondisplaced and subtle left-sided lateral fourth, fifth, sixth rib fractures. No pneumothorax. 2. Lungs are adequately inflated and clear 3. Spiculated soft tissue nodule in the right middle lobe. This appears somewhat more spiculated than the exam in 2015. Malignancy is not fully excluded; consider PET/CT to further evaluate. 4. Decreased mediastinal lymphadenopathy Electronically Signed: Jasiel Olvera DO at 9:30 EDT Tel , Service support , CC: Lei Funes DO; Attila Pinon DO Geosciences Professor: Signed HIP, UNI W/ PELVIS Observed: 01/07/2018 Status: F Source: [place] 2-3 VIEWS 8:17 AM [facility] REPOSITORY [facility] Imaging Services [address] [place] [address] HIP, UNI W/ Pelvis 2-3 Views MR#: [id number] Acct: [id number] Name: MIKALA WILSON Rep #: [id number] : 1940 77 From: Jasiel Olvera DO PCP: Lei Funes DO Status: REG ER Study: HIP, UNI W/ Pelvis 2-3 Views Date of Exam: 01/07/18 Exam# [id number] Ordering Dr: Attila Pinon DO STUDY: X-RAY - PELVIS AND LEFT HIP REASON FOR EXAM: Male, 77 years old. Left hip pain after fall TECHNIQUE: Radiological exam, hip, unilateral, with pelvis when performed; 2 or 3 views. COMPARISON: None. FINDINGS: Mildly comminuted medial left pubic ramus fracture. No significant displacement. No evidence of left femoral neck fracture. RAD/HIP, UNI W/ Pelvis 2-3 Views IMPRESSION: Left-sided pubic ramus fracture. No evidence of femoral neck fracture. Electronically Signed: Jasile Olvera DO at 9:31 EDT Tel , Service support , CC: Lei Funes DO; Attila Pinon DO Geosciences Professor: Signed PROTHROMBIN TIME W/INR Collected: 01/01/2018 Status: F Source: [place] 2:27 PM [facility] REPOSITORY Order Comment: Send Results To: Abhishek Ayoub Reason for Laboratory Test coumadin monitoring TYPE CODE TESTS RESULT OUT OF RANGE REFERENCE UNITS LAB L300.4150 11.7-14.9 SECONDS High PROTIME 17.8 LAB L300.4200 Normal INR 1.5 Performed By: #### L300.3900 #### [facility] [address], [address] LOWER EXT ARTERIAL Observed: 12/31/2017 Status: F Source: [place] STUDY 8:41 AM [facility] REPOSITORY [facility] Cardiovascular Services [address] [place] [address] 12/31/17 0839 MR#: [id number] Acct: [id number] Name: MIKALA WILSON Rep #: [id number] : 1940 77 From: Deven Ramirez MD Attending Dr: Deven Ramirez MD Status: REG CLI Ordering Dr: Date: 12/31/17 Location: [facility] Sex: M C Admitted: Arterial Study - Arterial Study Arterial Study: Date scan 12/30/2017 Trip and position of the bladder Interpretation: Right lower extremity with fairly normal flow down at the right lower extremity mostly of a biphasic waveform of the PT with an CHU 1.17 the DP near triphasic but noncompressible. Digit brachial index 0.68. Next Left lower extremity with monophasic waveform noted at the ankle the knee by 0.66 at the PT 0.82 with a DP. Digital brachial index 0.35. Impression: 1. Right lower extremity with no evidence of significant arterial occlusive disease at rest with an CHU of 1.17. 2. Left lower extremity with moderate arterial occlusive disease with an CHU of 0.82 with a DP that may be falsely elevated. PT at 0.66. 3. Small vessel disease left lower extremity with TBI 0.35 12/31/17 0841 <Electronically signed by Deven Ramirez MD> Date Deven Ramirez MD CC: Deven Ramirez MD; Lei Funes DO Date Dictated: 12/31/1739 Date Transcribed: 12/31/17838 Geosciences Professor: WILBER Lawrence ABD AORTIC/IVC DUPLEX Observed: 12/31/2017 Status: F Source: [place] SCAN 8:22 AM [facility] REPOSITORY [facility] Cardiovascular Services [address] [place] [address] Abd Aortic/IVC Duplex scan 12/30/17 0754 MR#: [id number] Acct: [id number] Name: MIKALA WILSON Rep #: [id number] : 1940 77 From: Deven Ramirez MD Attending Dr: Deven Ramirez MD Status: REG CLI Ordering Dr: Deven Ramirez MD Date: 12/30/17 Location: [facility] Sex: M C Admitted: Reason For Study: Atherosclerosis Aorta Measurements Aorta Doppler Measurements Proximal aorta measures2.01 x 2.03cm. in cross- Peak systolic flow velocities within the proximal sectional axis. aorta measure 72 cm/sec. Proximal aorta measures2.06cm. in longitudinal Peak systolic flow velocities within the mid axis. aorta measure 75.7 cm/sec. Mid aorta measures1.99 x 1.93cm. in cross- Peak systolic flow velocities within the distal sectional axis. aorta measure 79.3 cm/sec. Mid aorta measures1.95cm. in longitudinal axis. Distal aorta measures1.68 x 1.63cm. in cross- sectional axis. Distal aorta measures1.65cm. in longitudinal axis. Left Iliac Artery Left iliac artery measures 1.11 cm. in the longitudinal axis. Left iliac artery measures 0.98 x 0.91 cm. in the cross-sectional axis. Peak systolic velocity in the left iliac artery measures 125 cm/sec. Right Iliac Artery Right iliac artery measures 0.95 cm. in the longitudinal axis. Right iliac artery measures 0.92 x 0.94 cm. in the cross-sectional axis. Peak systolic velocity in the right iliac artery measures 119 cm/sec. Procedure Aorta IVC Iliac vasculature or bypass grafts 49254. Exam performed in department. Interpretation Summary 1. No aortoiliac stenosis. Ordering Physician: Deven Ramirez Referring Physician: Lei Funes Performed By: Anum Fuchs RVT and Student 12/31/17821 Date Deven Ramirez MD CC: Deven Ramirez MD; Lei Funes DO Date Dictated: 12/30/17 0754 Date Transcribed: 12/31/17821 Geosciences Professor: Signed ARTERIAL DUPLEX US, Observed: 12/31/2017 Status: F Source: [facility] 8:21 AM [facility] REPOSITORY [facility] Cardiovascular Services [address] [place] [address] Art Duplex US Unilat Lower Ext 12/30/17815 MR#: [id number] Acct: [id number] Name: MIKALA WILSON Rep #: [id number] : 1940 77 From: Deven Ramirez MD Attending Dr: Deven Ramirez MD Status: REG CLI Ordering Dr: Deven Ramirez MD Date: 12/30/17 Location: [facility] Sex: M C Admitted: Reason For Study: Atherosclerosis w claudication Left Velocities Ext Iliac Artery, dist = 74.7 cm./sec. Common Femoral Artery, prox = 101.0 cm./sec. Supf. Femoral Artery, prox = 53.9 cm./sec. Supf. Femoral Artery, mid = 55.7 cm./sec. Supf. Femoral Artery, dist = 44.0 cm./sec. Profunda Femoral Artery = 49.8 cm./sec. Popliteal Artery, proximal, = 436.0 cm./sec. Popliteal Artery, mid = 34.2 cm./sec. Popliteal Artery, distal = 23.6 cm./sec. Post. Tibial Artery, prox = 37.7 cm./sec. Post Tibial Artery, mid = 24.0 cm./sec. Peroneal Artery, prox = 41.2 cm./sec. Peroneal Artery, mid = 40.9 cm./sec. Peroneal Artery,dist. = 38.9 cm./sec. Ant.Tibial Artery, prox = 40.1 cm./sec. Ant Tibial Artery, mid = 39.7 cm./sec. Ant. Tibial Artery, distal = 52.2 cm./sec. Procedure Exam performed in department. Interpretation Summary 1. Severe stenosis with left popliteal stenosis. Ordering Physician: Deven Ramirez Referring Physician: Lei Funes Performed By: Anum Fuchs RVT 12/31/17819 Date Deven Ramirez MD CC: Deven Ramirez MD; Lei Funes DO Date Dictated: 12/30/17815 Date Transcribed: 12/31/17819 Geosciences Professor: Signed PROTHROMBIN TIME W/INR Collected: 12/24/2017 Status: F Source: [place] 11:09 AM [facility] REPOSITORY Order Comment: Comments: STANDING ORDER Comments: STANDING ORDER TYPE CODE TESTS RESULT OUT OF RANGE REFERENCE UNITS LAB L300.4150 11.7-14.9 SECONDS High PROTIME 17.7 LAB L300.4200 Normal INR 1.5 Performed By: #### L300.3900 #### [facility] [address] [place], [address] PULMONARY VISIT REPORT Observed: 12/22/2017 Status: F Source: [place] 4:26 PM [facility] REPOSITORY [facility] [address] [place] [address] OFFICE VISIT Date of Service: 12/22/17 MR#: [id number] Acct: [id number] Name: MIKALA WILSON Rep #: [id number] : 1940 Provider: Brissa Santoro Age/Sex: 77/M Location: [facility] Status: Signed Assessment AND Plan 1. Shortness of breath R06.02 Plan Plan to evaluate for possible exertional hypoxia with a pulmonary stress test. If identified, the patient will be set up with supplemental oxygen. Repeat pulmonary function test, as it has been 1 year since the patient previously completed them. Given that he has had recurrent pneumonia, it is quite possible that he has seen a decline in his pulmonary function. Defer any medication changes, additional inhalers, to Dr. Love at the follow-up visit. Orders Orders: 2. Pneumonia of left upper lobe due to infectious organism J18.[address] of the chest to evaluate mediastinal lymphadenopathy seen during his hospitalization. It is quite possible that it is from the acute illness. Plan to follow-up with Dr. Love in 6 weeks, at which time they can discuss the results of the CT and continue to develop a plan. Ordering creatinine and GFR prior to the CT with contrast to evaluate that the patient's kidney function will tolerate IV contrast. Orders Orders: 3. CLEMENT (obstructive sleep apnea) G47.33 Plan Patient is using and benefiting from Pap therapy. No indication for titration study at this time. Continue to encourage weight loss. Contact the office for any new or worsening symptoms in the meantime. Follow-up in 6 weeks. Plan Detail Other Medications New: Discontinued: Follow Up 2 Months (DMB) [facility] Hospital FU: Chief Complaint: Shortness of breath on exertion HPI Comments Details: This is a 77 year old M, currently under the care of Lei Funes DO, here to follow up after a recent hospitalization at [facility], from December 07 - December 11, 2017 for sepsis secondary to pneumonia, acute heart failure with reduced ejection fraction. The hospital stay was relatively uncomplicated. 12 pages of hospital documentation was reviewed, and found to be significant for CT of the chest that was completed on December 07 showing mild mediastinal adenopathy, mildly increased. Negative for PE. Groundglass opacity in the left upper lobe which may represent infection, interstitial pneumonia or less likely malignancy. Small pleural effusions and mild ascites noted. Echocardiogram showed an EF of 40% with an elevated RVSP of 45 mmHg. Upon discharge, the patient completed a 5 day course of prednisone and a 7 day course of Levaquin. He is also being treated with 40 mg of Lasix twice daily (this has been reduced to 40 mg once daily) as well as Mucinex extra strength twice daily. Today, he presents the office ambulatory and currently in room air. He is accompanied by his . He reports that he has returned to baseline, with regards to his respiratory status. He only experiences shortness of breath on exertion, denies any conversational dyspnea or dyspnea at rest. He denies any cough, sputum production or hemoptysis. He has not experienced any fever, chills or body aches. He denies any wheezing, chest tightness, chest pain or palpitations. He reports that his lower extremity edema has improved. He is compliant with CPAP. He denies any episodes of nocturia. He does report feeling rested in the morning. His denies that he snores through the mask. He denies any difficulties with mask leak or dry mouth in the morning. Intake Vital Signs12/22/17 Height 5 ft 7 in 12/22/17 Weight: 187 lb Intake Visit Reasons: Hospital FU [facility] Vendor: [employer] Accompanied by: Family / Other Allergies No Known Allergies Allergy (Verified 12/22/17 10:09) Medications Glimepiride [Amaryl] 4 mg PO DAILY@0800 #30 tab 02/25/17 [Rx Confirmed 12/22/17] Metformin HCl [Glucophage] 500 mg PO BIDCM #30 tab 02/25/17 [Rx Confirmed 12/22/17] Pioglitazone [Actos] 30 mg PO DAILY@0800 #30 tab 02/25/17 [Rx Confirmed 12/22/17] aspirin 81 mg tablet,delayed release 81 mg PO QDAY 07/24/17 [History Confirmed 12/22/17] sertraline 100 mg tablet 100 mg PO QDAY 30 Days #30 tab 07/24/17 [History Confirmed 12/22/17] Cilostazol [Pletal] 100 mg PO DAILY 12/07/17 [History Confirmed 12/22/17] Albuterol Inhaler [Ventolin Hfa] 1 - 2 puff INHALATION Q4H PRN PRN #1 inhaler 12/11/17 [Rx Confirmed 12/22/17] Carvedilol [Coreg] 6.25 mg PO BID #60 tab 12/11/17 [Rx Confirmed 12/22/17] Lisinopril [Zestril] 10 mg PO DAILY #30 tab 12/11/17 [Rx Confirmed 12/22/17] Potassium Chloride [K-Dur] 10 meq PO DAILY #30 tab 12/11/17 [Rx Confirmed 12/22/17] Warfarin [Coumadin] 5 mg PO DAILY #30 tab 12/11/17 [Rx Confirmed 12/22/17] furosemide 40 mg tablet 40 mg PO DAILY 12/22/17 [History Confirmed 12/22/17] PFSH Medical History Sick sinus syndrome (Chronic) CLEMENT (obstructive sleep apnea) (Chronic) Congestive heart failure, unspecified (Chronic) Other secondary pulmonary hypertension (Chronic) Nonrheumatic mitral valve regurgitation (Chronic) Nonrheumatic aortic (valve) stenosis (Chronic) Nonrheumatic aortic (valve) insufficiency (Chronic) Carotid artery stenosis (Chronic) Chronic atrial fibrillation (Chronic) Atherosclerotic heart disease of [place] coronary artery without angina pectoris (Chronic) Hyperlipidemia (Chronic) 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) DM2 (diabetes mellitus, type 2) (Chronic) Hypothyroidism (Chronic) Surgical History History of maze procedure (Chronic) Status post placement of cardiac pacemaker (Chronic) Status post mitral valve repair (Chronic) H/O left knee surgery (Chronic) Hx gamma knife procedure (Chronic) Family History Mother Myocardial infarction CAD (coronary artery disease) Hypertension Sister Hypertension CVA (cerebral vascular accident) Son Diabetes Social History Smoking Status: Former smoker alcohol intake: former substance use type: does not use caffeine: Yes Type: coffee what type of physical activity do you participate in: none seatbelt use: always do you feel safe at home: Yes Review of Systems Const CONSTITUTIONAL: Positive fatigue; negative anorexia, body ache, chills, daytime sleepiness, fever(s), night sweats, oral thrush, stops breathing during sleep, weight loss, sleeping in chair, weight loss, weight gain, frequent colds, seasonal allergies, other, orthopnea or headache(s) EETM Ear Nose Throat Mouth: Positive hard of hearing; negative hearing normal, hoarseness, dry mouth in morning, change in vision, itchy eyes, eye pain, swallowing Difficulty, ear pain, nose bleed, headache(s), mouth pain, nasal congestion, nasal discharge, post nasal drip, sinus pain, sinus pressure, sore throat or other Cardio Cardiovascular: Positive murmur; negative chest pain, chest pain at rest, chest pain with activity, irregular heart rhythm, edema, shortness of breath when lying down, palpitations or other Resp Respiratory: Positive as per HPI; negative shortness of breath, pain with cough, wheezing, chest congestion, cough, chest tightness, pain on inspiration, inhalers, increase use of rescue inhalers, snoring, apnea or other Gastro Gastrointestional: Negative bloody stools, change in appetite, difficulty swallowing, reflux, hematemesis, melena stool, loose stool, constipation or other Genitourinary: Negative blood in urine, nocturia, pain with urination or other Musc Musculoskeletal: Negative body pain, back pain, neck pain or other Skin/Breast Skin/Breast: Negative dry skin, itching, rash, unusual bruising, breast lump or other Neuro Neurological: Negative restless legs, confusion, weakness or other Psych Psychocological: Negative abnormal sleep pattern, anxiety, thoughts of hurting self/others, hopelessness or other Lymph Lymphatic: Negative easy bleeding, easy bruising, swollen lymph nodes or other Exam Const Constitutional: Positive conversant, cooperative, in no acute respiratory distress, healthy appearing, well developed, well nourished and good hygiene Head Head: Positive normocephalic and atraumatic; negative cyanosis of lips/distal nose Eyes Eye: Positive clear conjunctiva; negative nystagmus or scleral abnormality Ears Ear: Positive hard of hearing and external ears normal; negative hearing normal Nose Nose: Positive external nose normal and no nasal discharge; negative epistaxis Mouth Mouth: Positive oral mucosae normal, no lesions, dentures and crowded posterior oropharynx; negative post nasal drip, malodorous breath or oral thrush present Mallampati Score: III: Mallampati Score Neck Neck: Positive normal visual inspection, full ROM and trachea midline; negative lymphadenopathy, JVD or tender Chest Wall Chest: Positive normal inspection of the chest and symmetric chest movement Resp lung sounds: Positive clear to auscultation, diminished, normal expiratory time and normal respiratory effort; negative wheezes, rhonchi, rales, dullness to percussion or wheeze present on forced exhalation Cardio Cardiac: Positive murmur murmur: Positive systolic and RUSB, regular rate and regular rhythm GI GI: Positive normal to inspection; negative distended Genitourinary: Positive deferred Musc Musculoskeletal: Positive steady gait, ROM normal and using an assistive device for ambulation; negative kyphosis or scoliosis Skin Pulmonary Skin Exam: Positive intact; negative rash, lesion or ulcers Pulses Pulse: Yes pulses normal x4 extremities Extremities Extremities: Yes capillary refill normal, No clubbing, No cyanosis, No edema Neuro Neurologic: Yes conversant, Yes no focal neuro deficits, Yes normal concentration, Yes understands questions, Yes cooperative, Yes normal cognition, Yes normal coordination Lymph Lymphatic: No lymphadenopathy, No tenderness, No cervical adenopathy Psych Appearance: Positive grossly normal, eye contact and well kempt Mental Status: Positive mental status grossly normal Mood: Positive congruent mood Affect: Positive normal affect Coding Level of Care Code Off vis,est,level 4 Diagnoses Shortness of breath R06.02 Pneumonia of left upper lobe due to infectious organism J18.1 Laterality: left Lung location: upper lobe of lung Pneumonia type: due to unspecified organism CLEMENT (obstructive sleep apnea) G47.33 12/22/17 1626 <Electronically signed by Brissa LEIGHC> Date Brissa LEIGHC Cosigner Signature: Date (if applicable) CC: Lei Funes DO CARDIOLOGY VISIT Observed: 12/18/2017 Status: F Source: [place] REPORT 10:25 AM [facility] REPOSITORY [facility] [address] [place] [address] OFFICE VISIT Date of Service: 12/17/17 MR#: [id number] Acct: [id number] Name: MIKALA WILSON Rep #: [id number] : 1940 Provider: PAULETTE Mcdaniel Age/Sex: 77/M Location: [facility] Status: Signed HPI HPI Details: MIKALA WILSON, is a 77 M who presents to the office today for a cardiovascular outpatient follow-up. 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 In December 2016 he had an upper GI bleed that required 6 units of PRBCs. Patient presented to [facility] in December 2017 for worsening shortness of breath. His EKG showed sinus tachycardia at a rate of 108 bpm with PACs, PVCs, and right bundle branch block. His chest x-ray showed mild pulmonary venous congestion. His CT scan showed findings consistent with interstitial pneumonia. He underwent an echocardiogram that showed ejection fraction 40%, moderate concentric LVH, mildly dilated right ventricle, severely enlarged left atrium, severely enlarged right atrium, mild to moderate mitral valve stenosis, mild transvalvular insufficiency of mitral valve, moderately severe tricuspid valve insufficiency, stable bioprosthetic aortic valve apparatus, and RVSP of 45 mmHg. He was treated for pneumonia and symptoms improved. Per progress note it appears the patient developed paroxysmal atrial fibrillation, though no 12-lead ECG confirms this. He was started on Coumadin therapy. He was ultimately discharged home. Pt. denies chest, arm, jaw, or neck discomfort. His exercise tolerance is stable. Pt. denies symptoms of CHF, palpitations, lightheadedness, dizziness, near syncope, or syncopal episodes. Pt. denies edema or claudication issues. Pt. denies orthopnea, PND, fever, chills, blood in urine, blood in stool, myalgia, or unexplainable fatigue. Family state his gait is unsteady. Intake Vital Signs12/17/17 Height 5 ft 7 in 12/17/17 Weight: 187 lb 12/17/17 Body Mass Index (BMI) 29.2 12/17/17 Blood Pressure 78/40 12/17/17 Respiratory Rate 22 12/17/17 Pulse Rate 94 Intake Visit Reasons: S/P [facility] Allergies No Known Allergies Allergy (Verified 12/17/17 08:34) Medications Glimepiride [Amaryl] 4 mg PO DAILY@0800 #30 tab 02/25/17 [Rx Confirmed 12/07/17] Metformin HCl [Glucophage] 500 mg PO BIDCM #30 tab 02/25/17 [Rx Confirmed 12/17/17] Pioglitazone [Actos] 30 mg PO DAILY@0800 #30 tab 02/25/17 [Rx Confirmed 12/17/17] aspirin 81 mg tablet,delayed release 81 mg PO QDAY 07/24/17 [History Confirmed 12/17/17] sertraline 100 mg tablet 100 mg PO QDAY 30 Days #30 tab 07/24/17 [History Confirmed 12/17/17] Cilostazol [Pletal] 100 mg PO DAILY 12/07/17 [History Confirmed 12/17/17] Albuterol Inhaler [Ventolin Hfa] 1 - 2 puff INHALATION Q4H PRN PRN #1 inhaler 12/11/17 [Rx Confirmed 12/17/17] Carvedilol [Coreg] 6.25 mg PO BID #60 tab 12/11/17 [Rx Confirmed 12/17/17] Furosemide [Lasix] 40 mg PO BID@1000,1800 #60 tab 12/11/17 [Rx Confirmed 12/17/17] Lisinopril [Zestril] 10 mg PO DAILY #30 tab 12/11/17 [Rx Confirmed 12/17/17] Potassium Chloride [K-Dur] 10 meq PO DAILY #30 tab 12/11/17 [Rx Confirmed 12/17/17] Warfarin [Coumadin] 5 mg PO DAILY #30 tab 12/11/17 [Rx Confirmed 12/17/17] PFSH Medical History Sick sinus syndrome (Chronic) CLEMENT (obstructive sleep apnea) (Chronic) Congestive heart failure, unspecified (Chronic) Other secondary pulmonary hypertension (Chronic) Nonrheumatic mitral valve regurgitation (Chronic) Nonrheumatic aortic (valve) stenosis (Chronic) Nonrheumatic aortic (valve) insufficiency (Chronic) Carotid artery stenosis (Chronic) Chronic atrial fibrillation (Chronic) Atherosclerotic heart disease of [place] coronary artery without angina pectoris (Chronic) Hyperlipidemia (Chronic) 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) DM2 (diabetes mellitus, type 2) (Chronic) Hypothyroidism (Chronic) Surgical History History of maze procedure (Chronic) Status post placement of cardiac pacemaker (Chronic) Status post mitral valve repair (Chronic) H/O left knee surgery (Chronic) Hx gamma knife procedure (Chronic) Family History Mother Myocardial infarction CAD (coronary artery disease) Hypertension Sister Hypertension CVA (cerebral vascular accident) Son Diabetes Social History Smoking Status: Former smoker alcohol intake: former substance use type: does not use caffeine: Yes Type: coffee what type of physical activity do you participate in: none seatbelt use: always do you feel safe at home: Yes ROS Const Const: Negative for fatigue, weakness, difficulty sleeping, frequent falls, excessive sweating or headache(s) Eyes Eyes: Negative for loss of peripheral vision, transient loss of vision, blurry vision, tunnel vision or double vision ENT ENT: Negative for headache(s), dizziness, Nosebleed/epistaxis or balance problems Cardio Chest Pain: No Palpitations: No Edema: None Muscle aches with walking: None Resp Respiratory: Negative for SOB with activity, SOB at rest, SOB orthopnea\SOB lying down, paroxysmal nocturnal dyspnea or Cough GI GI: Negative nausea, heartburn, black,tarry stools or vomiting : Negative for hematuria Musc Musc: Negative for balance problems, muscle aches/ myalgia, muscle weakness or joint pain Skin Skin: Negative non-healing lesions, unusual bruising or rash Neuro Neuro: Negative for weakness, frequent falls, headache(s), blurry vision, double vision, dizziness, lightheadedness, orthostatic symptoms, near syncope, syncope or lack of coordination Jonh Hematologic/Lymphatic: Negative for easy bruising or easy bleeding Endo Endo: Negative for fatigue, excessive sweating or increased thirst/drinking Psych Psych: Negative for anxiety or depression Allergy Allergy/Immunology: Negative for hives, Negative for rash Cardiology Exam Const Appearance: cooperative, healthy appearing, well developed, well groomed and no acute distress Nutritional Appearance: well nourished and average body habitus Orientation: alert, awake and oriented x3 Head Head: normal to inspection, normocephalic and atraumatic Ears: hearing grossly normal bilaterally and external ears normal Nose: external nose normal, nares normal Face and Sinus: face symmetric Mouth: oral mucosae normal, tongue normal and moist mucous membranes Eyes General: appearance normal, both eyes and all related structures Eyelids: eyelids normal Conjunctivae: conjunctivae normal Pupils: PERRL and normal by confrontation EOM: EOM intact bilaterally Neck Neck: normal visual inspection, trachea midline and no JVD JVD: +5 Carotids: normal carotid upstroke and bounding pulses Chest Chest inspection: normal inspection of the chest, symmetric chest movement and normal respiratory effort Auscultation: Bilateral: Diminished Base Cardio Palpation: normal PMI Rate: regular rate Rhythm: regular rhythm Heart sounds: S1 normal, S2 normal and normal, physiologic split S2; negative rub, gallop or murmur GI GI: normal to inspection and soft Neuro General: alert, awake, oriented x3, no focal sensory deficit, moves all extremities and other (slow gait) Skin Skin: no rashes or lesions noted Extremities Pulses: Diminished: Right Posterior Tibial Pulse, Left Posterior Tibial Pulse, Right Radial Pulse, Left Radial Pulse Upper Extremity: White/pale nail beds Lower Extremity Edema: None: Bilateral Musculoskel Musculoskeletal: No joint tenderness Psych Psychological: normal affect Supplemental Info Echocardiogram from December 2017 showed mild global left ventricular systolic dysfunction, estimated ejection fraction 40%, moderate concentric LVH, mildly dilated right ventricle, severely enlarged left atrium, severely enlarged right atrium, angioplasty ring is noted in the mitral position, mild to moderate mitral valve stenosis, mild transvalvular insufficiency mitral valve, moderately severe tricuspid valve insufficiency, stable appearing bioprosthetic aortic valve apparatus, trivial pulmonic valve insufficiency, RVSP of 45 mmHg, and unable to assess diastolic dysfunction. Pacemaker check from September 2017 showed 125 MS episodes, 0.4% and 6 VHR episodes since 03/18/17. Longest MS episode 08/20/17 for approx 3 hrs 41 mins, last VHR episode 09/08/17 for approx 4 secs. AV dissociated with ventricular rate 200 bpm. MS episode markers show what appears to be SVT vs ST with 1:1 conduction. Left pectoral pocket/incision w/o s/s of infection or erosion. Presenting rhythm shows Sinus Tachycardia @106 bpm. CULTURE MANAGER=0.6%. Battery longevity approx 13.5 yrs. Lead impedances, sensing and pace/sense thresholds remain stable. No parameter changes. Right and left heart catheterization from November 2015 showed borderline left ventricular systolic function, normal left main coronary artery, LCx with no significant stenosis, LAD with no high-grade stenosis, RCA which is dominant with mild proximal and mid segment and moderate mid segment disease, mild aortic stenosis by peak to peak gradient, mild mitral stenosis, moderately severe mitral regurgitation, and upper normal pulmonary pressures. Assessment AND Plan 1. 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 He will continue current medications and we will continue to monitor. He will continue with antibiotic prophylaxis. 2. Status post mitral valve repair Z98.890 mitral valve repair and MAZE procedure 01/24/[address] Tolliver @ [facility] [place] His echocardiogram in December 2017 showed mild to moderate mitral valve stenosis and mild transvalvular insufficiency mitral valve. He will continue current medications and we will continue to monitor. 3. Paroxysmal atrial fibrillation I48.0 S/P MAZE procedure in 2015; [place] His echocardiogram in December 2017 showed severely enlarged left atrium and severely enlarged right atrium. Patient's media monitor strips during his recent hospitalization showed episodes of paroxysmal atrial fibrillation. His Coumadin was reinitiated. His heart rate is well-controlled, but on the upper limits. He will continue with his current beta-travis and Coumadin therapy. 4. Acute systolic heart failure I50.21 [place] His most recent echocardiogram in December 2017 showed ejection fraction of 40%. His echocardiograms in the past had showed a normal ejection fraction. His shortness of breath and lower extremity edema is greatly improved. Due to hypotension his diuretic and CLAUDIA inhibitor is being adjusted. We will consider repeating his echocardiogram once he is recovered from his illness to see for any improvement. 5. Hypotension, unspecified hypotension type I95.9 Plan - [place] Patient denies any symptoms with low blood pressure. He will decrease his lisinopril to 5 mg p.o. daily and his Lasix to 40 mg p.o. daily. His Coreg is not being adjusted at this time due to rate being on the upper limits. He has a follow-up appointment with primary care physician tomorrow and with hat ironer next week in which his BP will be rechecked. We will see the patient back in approximately 4 weeks to evaluate symptoms and blood pressure. He will also undergo a CBC to evaluate for any progressing anemic component since reinitiating Coumadin therapy. 6. Status post placement of cardiac pacemaker Z95.0 Permanent pacemaker placement 02/02/16 @ [facility] Plan - [place] Arroyo Patient's pacemaker/ICD appears to be functioning appropriately. We will continue to monitor this with routine/scheduled follow-ups. Plan Detail Other Orders Orders: Other Medications Discontinued: levofloxacin Discontinued Reason: Discontinued by PCP/o750 mg PO DAILY [facility] ther physicians prednisone Discontinued Reason: Discontinued by PCP/oth4 tabs PO DAILY K[facility] er physicians Additional Comments - [place] Discussed the above patient with Dr. Ayoub, he agrees with the plan of care. Thank you for allowing us to participate in the patients plan of care, if you have any questions please do not hesitate to call. This note was generated using a voice recognition system and there may be incorrect words, spelling or punctuation that were not noted when reviewing the office note prior to saving. Follow Up 4 Weeks ([facility]) Coding Level of Care Code Off vis,est,level 4 Diagnoses Status post aortic valve replacement with bioprosthetic valve Z95.3 Status post mitral valve repair Z98.890 Paroxysmal atrial fibrillation I48.0 Acute systolic heart failure I50.21 Heart failure chronicity: acute Hypotension, unspecified hypotension type I95.9 Hypotension type: unspecified hypotension type Status post placement of cardiac pacemaker Z95.0 Coding Level of Care Code Off vis,est,level 4 Diagnoses Status post aortic valve replacement with bioprosthetic valve Z95.3 Status post mitral valve repair Z98.890 Paroxysmal atrial fibrillation I48.0 Acute systolic heart failure I50.21 Heart failure chronicity: acute Hypotension, unspecified hypotension type I95.9 Hypotension type: unspecified hypotension type Status post placement of cardiac pacemaker Z95.0 12/17/17 0952 <Electronically signed by Danial Mcdaniel GASTROENTEROLOGY MANAGER-C> Date Danial Mcdaniel GASTROENTEROLOGY MANAGER-C 12/18/17 1025<Electronically signed by Abhishek Ayoub MD> Cosigner Signature: Date (if applicable) Abhishek Ayoub MD CC: Lei Funes DO CBC W/DIFF, AUTOMATED Collected: 12/17/2017 Status: F Source: [place] 9:33 AM [facility] REPOSITORY TYPE CODE TESTS RESULT OUT OF RANGE REFERENCE UNITS LAB L100.1000 4.4-11.0 K/mm3 Normal WBC 7.1 LAB L100.1200 4.6-6.2 M/mm3 Low RBC 4.50 LAB L100.1300 13.0-16.5 g/dl Low HGB 12.2 LAB L100.1400 40-54 % Low HCT 39.4 LAB L100.1500 80-94 fL Normal MCV 87.6 LAB L100.1600 27.0-32.0 pg Normal MCH 27.1 LAB L100.1700 32-36 g/gl Low MCHC 31.0 LAB L100.1810 11.6-14.6 % High RDW CV 16.2 LAB L100.1820 35.1-43.9 fl High RDW SD 51.6 LAB L100.1900 150-450 K/mm3 Normal PLT 193 LAB L100.2000 6.2-12.0 fl Normal MPV 10.6 LAB L100.2100 47-70 % High NEUT% 83.5 LAB L100.2200 19-41 % Low LY% 8.0 LAB L100.2300 0-10 % Normal MONO% 7.2 LAB L100.2400 0-5 % Normal EO% 0.7 LAB L100.2500 0-1 % Normal BASO% 0.3 LAB L100.2550 0.0-0.9 % Normal IM GRAN % 0.300 Result Comment: IG% - Immature Granulocytes (promyelocytes, myelocytes and metamyelocytes) > 1% indicates that a LEFT SHIFT is Present. LAB L100.2620 2.0-7.7 X10 3/uL Normal Absolute Neut 5.9 LAB L100.2720 0.83-4.51 X10 3/ul Low Absolute Lymph 0.57 LAB L100.4500 Normal SMEAR COMMENT COMMENT Result Comment: SLIDE SCANNED - LYMPHOPENIA NOTED. Performed By: #### L100.0100 #### [facility] [place], [place], [address] PROTHROMBIN TIME W/INR Collected: 12/17/2017 Status: F Source: [place] 9:32 AM [facility] REPOSITORY Order Comment: Send Results To: Abhishek Ayoub Reason for Laboratory Test coumadin monitoring TYPE CODE TESTS RESULT OUT OF RANGE REFERENCE UNITS LAB L300.4150 11.7-14.9 SECONDS High PROTIME 17.8 LAB L300.4200 Normal INR 1.5 Performed By: #### L300.3900 #### [facility] [address] [place], [place], [address] PROTHROMBIN TIME W/INR Collected: 12/11/2017 Status: F Source: [place] 3:10 PM [facility] REPOSITORY TYPE CODE TESTS RESULT OUT OF RANGE REFERENCE UNITS LAB L300.4150 11.7-14.9 SECONDS High PROTIME 18.7 LAB L300.4200 Normal INR 1.6 Performed By: #### L300.3900 #### [facility] [place], [address] DISCHARGE SUMMARY Observed: 12/11/2017 Status: F Source: [place] 2:54 PM [facility] REPOSITORY [facility] Medical Records Department [address] [place] [id number] Discharge Summary 12/11/17 1335 MR#: [id number] Acct: [id number] Name: MIKALA WILSON Rep #: [id number] : 1940 77 From: Usman Matos DO PCP: Lei Funes DO Status: ADM IN Y Location: [place] [address] ADDENDUM by Usman Matos DO on 12/11/17 at 1453 Code Visit Correction: Patient with persistent atrial fibrillation. Patient had been on Coumadin in the past for about 20 years for atrial fibrillation and then he had a valvular replacement and then his atrial for ablation had resolved and was subsequently taken off of Coumadin. But the patient has maintained atrial fibrillation while he has been here. As this may be correlated with valvular abnormality, patient will resume Coumadin. Patient's states that Dr. Ayoub was managing his INR previously. 12/11/17 1454 <Electronically signed by Usman Matos DO> Date Usman Matos DO cc: Daniel Phillips MD; Abhishek Ayoub MD; Usman Matos DO; Lei Funes DO * Signed Discharge Date and Diagnosis - Problem List Patient Problems: Active and Suspected Problems (Last Updated 09/16/17 @ 19:52 by Gilma Phelps) Heart failure with reduced ejection fraction (Acute) Severe sepsis (Acute) Pneumonia (Acute) Date of Admission: 12/07/17 Date of Discharge: 12/11/17 - Primary Discharge Diagnosis Active and Suspected Problems (Last Updated 09/16/17 @ 19:52 by Gilma Phelps) Heart failure with reduced ejection fraction (Acute) Severe sepsis (Acute) Pneumonia (Acute) - Secondary Discharge Diagnosis Chronic Problems (Last Updated 09/16/17 @ 19:52 by Gilma Phelps) Sick sinus syndrome (Chronic) CLEMENT (obstructive sleep apnea) (Chronic) Congestive heart failure, unspecified (Chronic) Other secondary pulmonary hypertension (Chronic) Nonrheumatic mitral valve regurgitation (Chronic) Nonrheumatic aortic (valve) stenosis (Chronic) Nonrheumatic aortic (valve) insufficiency (Chronic) Carotid artery stenosis (Chronic) Chronic atrial fibrillation (Chronic) Atherosclerotic heart disease of [place] coronary artery without angina pectoris (Chronic) History of maze procedure (Chronic) mitral valve repair and MAZE procedure 01/24/[address] Tolliver @ [facility] UGIB (upper gastrointestinal bleed) (Chronic) Duodenal ulcer (Chronic) Physical debility (Chronic) Supratherapeutic INR (Chronic) Hypokalemia (Chronic) Pancytopenia (Chronic) Symptomatic anemia (Chronic) Sepsis (Chronic) Hyperlipidemia (Chronic) Status post placement of cardiac pacemaker (Chronic) Permanent pacemaker placement 02/02/16 @ [facility] Status post mitral valve repair (Chronic) mitral valve repair and MAZE procedure 01/24/[address] Tolliver @ [facility] 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) Aortic Valve Replacement w/ 23-mm Jay-Aragon pericardial valve Atrial fibrillation (Chronic) DM2 (diabetes mellitus, type 2) (Chronic) Hospital Course and Treatment Imaging Results: Clinical Impression(s) from Imaging Studies Chest X-Ray 12/07/17 18:54 IMPRESSION: Mild pulmonary venous congestion. Cardiac enlargement. Electronically Signed: Carmencita Le MD at 19:20 EDT Tel , Service support , Chest CTA 12/07/17 19:47 IMPRESSION: 1. No evidence of pulmonary embolus. 2. Mild mediastinal adenopathy, mildly increased. 3. Groundglass opacity in the left upper lobe. This may represent infection, interstitial pneumonia, less likely malignancy. Follow-up is advised. 4. Small pleural effusions. 5. Mild ascites. Electronically Signed: Carmencita Le MD at 20:52 EDT Tel , Service support , Operations: None Procedures: None Summary of Care Provided: The patient is a 77 year old M presents with shortness of breath. 1. Acute hypoxic and hypercapnic respiratory failure * improved * Secondary to possible pneumonia, pleural effusions, sleep apnea and CHF * Wean oxygen as tolerated * Pulmonary toilet * Pulmonary consult * transitioned to prednisone 2. Suspected pneumococcal pneumonia * Continue with Levaquin. DC Rocephin * Strep and Legionella antigens were negative * sputum culture negative so far. * outpt CT eval for resolution. 3. Severe sepsis * Present on admission * Secondary to pneumonia * Of the possibilities could be related with the hypoxia as to the etiology of lactic acidosis 4. Acute HFrEF * EF 40%, down from 50% from 2016 * change lasix to PO * continue ACEi * start coreg * follow up with Dr. Ayoub 5. Pleural effusions * Bibasilar * Likely due to CHF * follow up as outpt to eval for resolution 6. Paroxysmal atrial fibrillation * Stable at this time * On aspirin [] Discharge Diet: 1800 Calorie Control Diet, 6 Cup Fluid Restriction, 2000 mg Sodium Diet Discharge Activity: Return to Normal Activity Call your doctor if you observe: Fever of 101 or Higher, Shortness of breath Home Medications: Medications to take at Discharge Glimepiride [Amaryl] 4 mg PO DAILY@0800 #30 tab 02/25/17 Metformin HCl [Glucophage] 500 mg PO BIDCM #30 tab 02/25/17 Pioglitazone [Actos] 30 mg PO DAILY@0800 #30 tab 02/25/17 aspirin 81 mg tablet,delayed release 81 mg PO QDAY 07/24/17 sertraline 100 mg tablet 100 mg PO QDAY 30 Days #30 tab 07/24/17 Cilostazol [Pletal] 100 mg PO DAILY 12/07/17 Albuterol Inhaler [Ventolin Hfa] 1 - 2 puff INHALATION Q4H PRN PRN #1 inhaler 12/11/17 Carvedilol [Coreg] 6.25 mg PO BID #60 tab 12/11/17 Furosemide [Lasix] 40 mg PO BID@1000,1800 #60 tab 12/11/17 Guaifenesin [Mucinex] 1,200 mg PO BID #10 tab 12/11/17 Lisinopril [Zestril] 10 mg PO DAILY #30 tab 12/11/17 Potassium Chloride [K-Dur] 10 meq PO DAILY #30 tab 12/11/17 Prednisone 4 tab PO DAILY #8 tab 12/11/17 levoFLOXacin tablet [Levaquin tablet] 750 mg PO DAILY #3 tab 12/11/17 Following Prescrptions Were Given to Patient: Albuterol Inhaler [Ventolin Hfa] 1 - 2 puff INHALATION Q4H PRN PRN #1 inhaler PRN Reason: Shortness Of Breath Furosemide [Lasix] 40 mg PO BID@1000,1800 #60 tab levoFLOXacin tablet [Levaquin tablet] 750 mg PO DAILY #3 tab Lisinopril [Zestril] 10 mg PO DAILY #30 tab Potassium Chloride [K-Dur] 10 meq PO DAILY #30 tab Prednisone 4 tab PO DAILY #8 tab Carvedilol [Coreg] 6.25 mg PO BID #60 tab Guaifenesin [Mucinex] 1,200 mg PO BID #10 tab Other Amb Orders: Basic Metabolic Profile (BMP) Location: Laboratory Primary Care Physician: Lei Funes DO [Primary Care Provider] - Please Follow Up With: Lei Funes DO Please Follow Up With: Abhishek Ayoub MD When: 12/17/17 Please Follow Up With: Daniel Phillips MD When: 2 weeks Disposition: Home Minutes spent on discharge:: 35 Patient Condition:: Fair Medical Necessity - Tobacco Use Smoking Status: Former smoker Tobacco Use: Non-smoker Meaningful Use Info Meaningful Use Diagnoses (Choose all that apply): CHF - CHF CLAUDIA/ARB ordered at discharge?: Yes Documented LVEF (%): 45 Code Visit Inpatient E AND M: 45098 Disch Hosp 12/11/17 1341 <Electronically signed by Usman Matos DO> Date Usman Matos DO Cosigner Signature (if applicable): Date CC: Daniel Phillips MD; Abhishek Ayoub MD; Usman Matos DO; Lei Funes DO Signed DISCHARGE INSTRUCTION Observed: 12/11/2017 Status: F Source: [place] 1:35 PM [facility] REPOSITORY [facility] Medical Records Department [address] [place] [address] Instructions for Home/Discharge Instructions 12/11/17 1332 MR#: [id number] Acct: [id number] Name: MIKALA WILSON Rep #: [id number] : 1940 77 From: Usman Matos DO PCP: Lei Funes DO Status: ADM IN - Discharge Diagnoses Current Active Problems: Current Active and Chronic Problems (Last Updated 09/16/17 @ 19:52 by Gilma Phelps) Severe sepsis (Acute) Pneumonia (Acute) Heart failure with reduced ejection fraction (Acute) You will use the following diet at home:: Calorie/Carbohydrate Controlled (specify 1200, 1400, etc) - 1800 kcal/day, Fluid restricted (specify 2000 mls, 1500 mls) - 1500 cc/day Your food should be the consistency of: Regular Your liquids should be the consistency of: Regular/Thin Discharge Activity: Return to Normal Activity Call your doctor if you observe: Fever of 101 or Higher, Shortness of breath Additional Instructions: Daily weights. Notify physician if greater than 2 pounds in 1 day, or 3 pounds in 1 week. Allergies/Adverse Reactions: Allergies No Known Allergies Allergy (Verified 12/07/17 18:24) Medications to take at Discharge Glimepiride [Amaryl] 4 mg PO DAILY@0800 #30 tab 02/25/17 Metformin HCl [Glucophage] 500 mg PO BIDCM #30 tab 02/25/17 Pioglitazone [Actos] 30 mg PO DAILY@0800 #30 tab 02/25/17 aspirin 81 mg tablet,delayed release 81 mg PO QDAY 07/24/17 sertraline 100 mg tablet 100 mg PO QDAY 30 Days #30 tab 07/24/17 Cilostazol [Pletal] 100 mg PO DAILY 12/07/17 Albuterol Inhaler [Ventolin Hfa] 1 - 2 puff INHALATION Q4H PRN PRN #1 inhaler 12/11/17 Carvedilol [Coreg] 6.25 mg PO BID #60 tab 12/11/17 Furosemide [Lasix] 40 mg PO BID@1000,1800 #60 tab 12/11/17 Guaifenesin [Mucinex] 1,200 mg PO BID #10 tab 12/11/17 Lisinopril [Zestril] 10 mg PO DAILY #30 tab 12/11/17 Potassium Chloride [K-Dur] 10 meq PO DAILY #30 tab 12/11/17 Prednisone 4 tab PO DAILY #8 tab 12/11/17 levoFLOXacin tablet [Levaquin tablet] 750 mg PO DAILY #3 tab 12/11/17 The following prescriptions were given: Albuterol Inhaler [Ventolin Hfa] 1 - 2 puff INHALATION Q4H PRN PRN #1 inhaler PRN Reason: Shortness Of Breath Furosemide [Lasix] 40 mg PO BID@1000,1800 #60 tab levoFLOXacin tablet [Levaquin tablet] 750 mg PO DAILY #3 tab Lisinopril [Zestril] 10 mg PO DAILY #30 tab Potassium Chloride [K-Dur] 10 meq PO DAILY #30 tab Prednisone 4 tab PO DAILY #8 tab Carvedilol [Coreg] 6.25 mg PO BID #60 tab Guaifenesin [Mucinex] 1,200 mg PO BID #10 tab Orders to be completed after discharge: Basic Metabolic Profile (BMP) Location: Laboratory Primary Care Physician: Lei Funes DO [Primary Care Provider] - Test Results: Test results from this visit will be discussed in further detail at your follow-up appointment, if applicable. Please Follow Up With: Lei Funes DO Please Follow Up With: Abhishek Ayoub MD When: 12/17/17 Please Follow Up With: Daniel Phillips MD When: 2 weeks Proposed Discharge Date: 12/11/17 12/11/17 1335 <Electronically signed by Usman Matos DO> Date Usman Matos DO CC: Daniel Phillips MD; Lei Funes DO BEDSIDE GLUCOSE Collected: 12/11/2017 Status: F Source: [place] 11:13 AM [facility] REPOSITORY TYPE CODE TESTS RESULT OUT OF REFERENCE UNITS RANGE LAB L501.080 70-110 mg/dL High BEDSIDE GLU 238 Result Comment: MANAGEMENT OF PATIENT CARE PER NURSING PROTOCOL Performed By: #### L501.080 #### [facility] Laboratory Point of [place] [address] BEDSIDE GLUCOSE Collected: 12/11/2017 Status: F Source: [place] 6:57 AM [facility] REPOSITORY TYPE CODE TESTS RESULT OUT OF REFERENCE UNITS RANGE LAB L501.080 70-110 mg/dL High BEDSIDE GLU 159 Result Comment: MANAGEMENT OF PATIENT CARE PER NURSING PROTOCOL Performed By: #### L501.080 #### [facility] Laboratory Point of Care [address] [place] [address] BASIC METABOLIC Collected: 12/11/2017 Status: F Source: [place] PROFILE (BMP) 5:40 AM [facility] REPOSITORY TYPE CODE TESTS RESULT OUT OF RANGE REFERENCE UNITS LAB L501.0100 74-106 mg/dL High GLU 182 Result Comment: Fasting Glucose result greater than or equal to 126 mg/dL suggests DIABETES MELLITUS per A.D.A. criteria. Please note revised GLUCOSE reference range effective 2017. LAB L501.1000 7-18 mg/dL High BUN 25 LAB L501.1100 0.70-1.30 mg/dL Normal CREAT,SERUM 0.90 Result Comment: The validity of the calculated GFR AND GFRAA in patients over 70 years has not been determined. Clinical correlation is essential. LAB L501.1110 >60 mL/min Normal EST GFR 87 Result Comment: Non- GFR Calc LAB L501.1115 >60 mL/min Normal EST GFR - AA 106 Result Comment: GFR Calc LAB L501.1255 ml/min Normal Estimated CRCL 63.01 LAB L501.1300 10-20 RATIO High BUN/CRE 27.8 LAB L501.2200 8.5-10 mg/dL Low .1 CA 8.2 LAB L501.5300 136-14 mmol/L Normal 5 NA 138 LAB L501.5600 3.5-5. mmol/L Normal 1 K 3.7 LAB L501.5900 98-107 mmol/L Normal CL 104 LAB L501.6100 21.0-3 mmol/L Normal 2.0 CO2 24.0 LAB L501.6200 5-15 Normal GAP 10 Performed By: #### L500.2500 #### [facility] [address] [place], [place], [address] CBC W/DIFF, AUTOMATED Collected: 12/11/2017 Status: F Source: [place] 5:40 AM [facility] REPOSITORY TYPE CODE TESTS RESULT OUT OF RANGE REFERENCE UNITS LAB L100.1000 4.4-11.0 K/mm3 Normal WBC 6.4 LAB L100.1200 4.6-6.2 M/mm3 Low RBC 3.86 LAB L100.1300 13.0-16.5 g/dl Low HGB 11.0 LAB L100.1400 40-54 % Low HCT 34.1 LAB L100.1500 80-94 fL Normal MCV 88.3 LAB L100.1600 27.0-32.0 pg Normal MCH 28.5 LAB L100.1700 32-36 g/gl Normal MCHC 32.3 LAB L100.1810 11.6-14.6 % High RDW CV 16.0 LAB L100.1820 35.1-43.9 fl High RDW SD 50.2 LAB L100.1900 150-450 K/mm3 Normal PLT 158 LAB L100.2000 6.2-12.0 fl Normal MPV 11.0 LAB L100.2100 47-70 % High NEUT% 83.6 LAB L100.2200 19-41 % Low LY% 8.4 LAB L100.2300 0-10 % Normal MONO% 7.3 LAB L100.2400 0-5 % Normal EO% 0.2 LAB L100.2500 0-1 % Normal BASO% 0.0 LAB L100.2550 0.0-0.9 % Normal IM GRAN % 0.500 Result Comment: IG% - Immature Granulocytes (promyelocytes, myelocytes and metamyelocytes) > 1% indicates that a LEFT SHIFT is Present. LAB L100.2620 2.0-7.7 X10 3/uL Normal Absolute Neut 5.4 LAB L100.2720 0.83-4.51 X10 3/ul Low Absolute Lymph 0.54 LAB L100.4500 Normal SMEAR COMMENT SCANNED Performed By: #### L100.0100 #### [facility] [address] [place], [place], [id number] BEDSIDE GLUCOSE Collected: 12/10/2017 Status: F Source: [place] 10:08 PM [facility] REPOSITORY TYPE CODE TESTS RESULT OUT OF REFERENCE UNITS RANGE LAB L501.080 70-110 mg/dL High BEDSIDE GLU 370 Result Comment: MANAGEMENT OF PATIENT CARE PER NURSING PROTOCOL Performed By: #### L501.080 #### [facility] Point of Care [address] [place] [address] BEDSIDE GLUCOSE Collected: 12/10/2017 Status: F Source: [place] 5:56 PM [facility] REPOSITORY TYPE CODE TESTS RESULT OUT OF REFERENCE UNITS RANGE LAB L501.080 70-110 mg/dL High BEDSIDE GLU 382 Result Comment: MANAGEMENT OF PATIENT CARE PER NURSING PROTOCOL Performed By: #### L501.080 #### [facility] Point of Care [address] [place] [address] BEDSIDE GLUCOSE Collected: 12/10/2017 Status: F Source: [place] 11:17 AM [facility] REPOSITORY TYPE CODE TESTS RESULT OUT OF REFERENCE UNITS RANGE LAB L501.080 70-110 mg/dL High BEDSIDE GLU 358 Result Comment: MANAGEMENT OF PATIENT CARE PER NURSING PROTOCOL Performed By: #### L501.080 #### [facility] Point of Care [address] [place] [address] BEDSIDE GLUCOSE Collected: 12/10/2017 Status: F Source: [place] 6:48 AM [facility] REPOSITORY TYPE CODE TESTS RESULT OUT OF REFERENCE UNITS RANGE LAB L501.080 70-110 mg/dL High BEDSIDE GLU 240 Result Comment: MANAGEMENT OF PATIENT CARE PER NURSING PROTOCOL Performed By: #### L501.080 #### [facility] Point of Care [address] [place] [address] BASIC METABOLIC Collected: 12/10/2017 Status: F Source: [place] PROFILE (BMP) 5:50 AM [facility] REPOSITORY TYPE CODE TESTS RESULT OUT OF RANGE REFERENCE UNITS LAB L501.0100 74-106 mg/dL High GLU 240 Result Comment: Glucose result greater than or equal to 200 mg/dL suggests DIABETES MELLITUS per A.D.A. criteria. Please note revised GLUCOSE reference range effective 2017. LAB L501.1000 7-18 mg/dL High BUN 24 LAB L501.1100 0.70-1.30 mg/dL Normal CREAT,SERUM 0.93 Result Comment: The validity of the calculated GFR AND GFRAA in patients over 70 years has not been determined. Clinical correlation is essential. LAB L501.1110 >60 mL/min Normal EST GFR 84 Result Comment: Non- GFR Calc LAB L501.1115 >60 mL/min Normal EST GFR - AA 101 Result Comment: GFR Calc LAB L501.1255 ml/min Normal Estimated CRCL 60.98 LAB L501.1300 10-20 RATIO High BUN/CRE 25.7 LAB L501.2200 8.5-10 mg/dL Normal .1 CA 8.5 LAB L501.5300 136-14 mmol/L Normal 5 NA 138 LAB L501.5600 3.5-5. mmol/L Normal 1 K 4.7 LAB L501.5900 98-107 mmol/L Normal CL 104 LAB L501.6100 21.0-3 mmol/L Normal 2.0 CO2 24.0 LAB L501.6200 5-15 Normal GAP 10 Performed By: #### L500.2500 #### [facility] [address] [facility] [place], [address] CONSULTATION Observed: 12/10/2017 Status: F Source: [place] 5:29 AM [facility] REPOSITORY [facility] Medical Records Department [address] [place] [address] Consultation 12/09/17 1146 MR#: [id number] Acct: [id number] Name: MIKALA WILSON Rep #: [id number] : 1940 77 From: Daniel Phillips MD PCP: Lei Funes DO Status: ADM IN Location: [place] [address] Problem List (1) Severe sepsis Status: Acute (2) Pneumonia Status: Acute Qualifiers: Pneumonia type: due to unspecified organism Laterality: left Lung location: upper lobe of lung Qualified Code(s): J18.1 - Lobar pneumonia, unspecified organism (3) Sick sinus syndrome Status: Chronic (4) CLEMENT (obstructive sleep apnea) Status: Chronic (5) Other secondary pulmonary hypertension Status: Chronic (6) Nonrheumatic mitral valve regurgitation Status: Chronic (7) Nonrheumatic aortic (valve) stenosis Status: Chronic (8) Nonrheumatic aortic (valve) insufficiency Status: Chronic (9) Carotid artery stenosis Status: Chronic Qualifiers: Laterality: unspecified laterality Qualified Code(s): I65.29 - Occlusion and stenosis of unspecified carotid artery (10) Chronic atrial fibrillation Status: Chronic (11) Atherosclerotic heart disease of [place] coronary artery without angina pectoris Status: Chronic Qualifiers: [place] vs. transplanted heart: unspecified whether [place] or transplanted heart Qualified Code(s): I25.10 - Atherosclerotic heart disease of [place] coronary artery without angina pectoris (12) History of maze procedure Status: Chronic Comment: mitral valve repair and MAZE procedure 01/24/[address] Tolliver @ [facility] (13) Physical debility Status: Chronic (14) Hypokalemia Status: Chronic (15) Pancytopenia Status: Chronic (16) Status post mitral valve repair Status: Chronic Comment: mitral valve repair and MAZE procedure 01/24/[address] Tolliver @ [facility] (17) Status post aortic valve replacement with bioprosthetic valve Status: Chronic Comment: Aortic Valve Replacement w/ 23- mm Jay-Aragon pericardial valve (18) DM2 (diabetes mellitus, type 2) Status: Chronic Qualifiers: Diabetes mellitus long-term insulin use: without exterminator helper termite use Diabetes mellitus complication status: with unspecified complications Qualified Code(s): E11.8 - Type 2 diabetes mellitus with unspecified complications Reason for Consult Date of Consultation: 12/09/17 Reason for Consultation: Pneumonia History of Present Illness: The patient is a 77 year old M, with past medical history listed below, who presented to [facility] on December 07, 2017 secondary to progressive shortness of breath. Patient had reported shortness of breath over the previous 3 weeks, but had significant worsening over the 2 days prior to admission. On presentation to the emergency room, patient was noted to be 87% on room air with an elevated lactate at 3.8 and mild congestion on chest x-ray. CT angiogram showed no evidence of PE, but groundglass opacity of the left upper lobe suspicious for pneumonia, bilateral pleural effusions and mild ascites. Patient was found to be in A. fib with RVR and was given Cardizem, normal saline and antibiotics. Patient admitted to the general medical floor for further evaluation. While on the floor, patient did require BiPAP overnight. Patient did report subjective improvement in overall condition, but was requiring supplemental oxygen to maintain appropriate saturations. Patient reports cough without production. No fevers have been noted overnight, but patient did have some hypoglycemia this morning that was treated empirically. Patient did have a similar type presentation in November 2016 and recovered well without the need for supplemental oxygen. Patient did have pulmonary function test completed at her office in December 2016 showing no large airways obstructive ventilatory defect, but lung volumes at the lower limit of normal. (FVC 91%, FEV1 101%, TLC 88%, DLCO 77%). Unfortunately, patient was lost to follow-up and has not been seen since. Patient does have an extensive heart history and states that he follows with Dr. Ayoub. Patient denies any recent dietary indiscretions. Patient reports he has been compliant with his therapy as ordered. Review of systems otherwise negative 10 systems. Past Medical History Past Medical History (Chronic Problems): Chronic Problems (Last Updated 09/16/17 @ 19:52 by Gilma Phelps) Sick sinus syndrome (Chronic) CLEMENT (obstructive sleep apnea) (Chronic) Congestive heart failure, unspecified (Chronic) Other secondary pulmonary hypertension (Chronic) Nonrheumatic mitral valve regurgitation (Chronic) Nonrheumatic aortic (valve) stenosis (Chronic) Nonrheumatic aortic (valve) insufficiency (Chronic) Carotid artery stenosis (Chronic) Chronic atrial fibrillation (Chronic) Atherosclerotic heart disease of [place] coronary artery without angina pectoris (Chronic) History of maze procedure (Chronic) mitral valve repair and MAZE procedure 01/24/[address] Tollvier @ [facility] UGIB (upper gastrointestinal bleed) (Chronic) Duodenal ulcer (Chronic) Physical debility (Chronic) Supratherapeutic INR (Chronic) Hypokalemia (Chronic) Pancytopenia (Chronic) Symptomatic anemia (Chronic) Sepsis (Chronic) Hyperlipidemia (Chronic) Status post placement of cardiac pacemaker (Chronic) Permanent pacemaker placement 02/02/16 @ [facility] Status post mitral valve repair (Chronic) mitral valve repair and MAZE procedure 01/24/[address] Tolliver @ [facility] 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) Aortic Valve Replacement w/ 23-mm Jay-Aragon pericardial valve Atrial fibrillation (Chronic) DM2 (diabetes mellitus, type 2) (Chronic) Medical History: Medical History (Last Updated 09/16/17 @ 19:52 by Gilma Phelps) Sick sinus syndrome (Chronic) I49.5 CLEMENT (obstructive sleep apnea) (Chronic) G47.33 Congestive heart failure, unspecified (Chronic) I50.9 Other secondary pulmonary hypertension (Chronic) I27.29 Nonrheumatic mitral valve regurgitation (Chronic) I34.0 Nonrheumatic aortic (valve) stenosis (Chronic) I35.0 Nonrheumatic aortic (valve) insufficiency (Chronic) I35.1 Carotid artery stenosis (Chronic) I65.29 Chronic atrial fibrillation (Chronic) I48.2 Atherosclerotic heart disease of [place] coronary artery without angina pectoris (Chronic) I25.10 Hyperlipidemia (Chronic) E78.5 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) Z95.3 Aortic Valve Replacement w/ 23-mm Jay-Aragon pericardial valve DM2 (diabetes mellitus, type 2) (Chronic) E11.9 Hypothyroidism E03.9 Allergies No Known Allergies Allergy (Verified 12/07/17 18:24) Home Medications: Ambulatory Orders Medication Instructions Recorded Glimepiride [Amaryl] 4 mg PO DAILY@0800 #30 tab 02/25/17 Metformin HCl [Glucophage] 500 mg PO BIDCM #30 tab 02/25/17 Pioglitazone [Actos] 30 mg PO DAILY@0800 #30 tab 02/25/17 Surgical History: Surgical History (Last Reviewed 07/24/17 @ 09:26 by Abhishek Ayoub MD) History of maze procedure (Chronic) Z98.890 mitral valve repair and MAZE procedure 01/24/[address] Tolliver @ [facility] Status post placement of cardiac pacemaker (Chronic) Z95.0 Permanent pacemaker placement 02/02/16 @ [facility] Status post mitral valve repair (Chronic) Z98.890 mitral valve repair and MAZE procedure 01/24/[address] 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 Psychiatric History: No pertinent psych hx Lives: Spouse/ Significant Other Smoking Status: Former smoker Tobacco Use: Non-smoker Alcohol: None Drugs: None - *Family History Maternal Family History: Family History (Last Reviewed 07/24/17 @ 09:26 by Abhishek Ayoub MD) Mother Myocardial infarction CAD (coronary artery disease) Hypertension Sister Hypertension CVA (cerebral vascular accident) Son Diabetes History Items: Heart Disease, Hypertension Paternal Family History: Family History (Last Reviewed 07/24/17 @ 09:26 by Abhishek Ayoub MD) Mother Myocardial infarction CAD (coronary artery disease) Hypertension Sister Hypertension CVA (cerebral vascular accident) Son Diabetes History Items: No pertinent history Sibling Family History: Family History (Last Reviewed 07/24/17 @ 09:26 by Abhishek Ayoub MD) Mother Myocardial infarction CAD (coronary artery disease) Hypertension Sister Hypertension CVA (cerebral vascular accident) Son Diabetes History Items: Hypertension, Stroke Offspring Family History: Family History (Last Reviewed 07/24/17 @ 09:26 by Abhishek Ayoub MD) Mother Myocardial infarction CAD (coronary artery disease) Hypertension Sister Hypertension CVA (cerebral vascular accident) Son Diabetes History Items: Diabetes Review of Systems Comment: See HPI, otherwise negative 10 systems. Patient Problems: Active and Suspected Problems (Last Updated 09/16/17 @ 19:52 by Gilma Phelps) Severe sepsis (Acute) Pneumonia (Acute) Objective: All imaging was personally reviewed. CT scan of the chest shows bilateral pleural effusions with groundglass opacities, particularly of the left upper lobe. Pulmonary function test was described in HPI. - Physical Exam General: Alert, Oriented x3, Cooperative, No apparent distress, - - Speaking in full sentences. HEENT: Atraumatic, PERRLA, EOMI, Normocephalic, - - No scleral icterus or injection noted. Oral: Moist Mucosa, No Gingival or Mucosal Lesions/ Ulcerations Neck: Supple, No JVD, No Nodes, Trachea Midline Lungs: No rhonchi, Rales - Left upper lobe, Wheezes - Sporadic, - - Increased AP diameter. Cardiovascular: Normal S1, Normal S2, No murmurs, Irregular Rate, No rub noted, No Gallop Abdomen: Bowel Sounds Present, Soft, Non Tender, Non-Distended, Obese Extremities: No clubbing, No cyanosis, Edema Skin: No rashes, No breakdown Musculoskeletal: No Tenderness to Palpation of Joints or Extremities Lymphatic: No Cervical, Supraclavicular, or Inguinal Adenopathy Neurological: Cranial nerves II-XII grossly intact, Neuro grossly intact, Motor Exam 5/5 strength throughout Psych/Mental Status: Alert and oriented to time, place, person, mood and affect Vital Signs Temp Pulse Resp BP Pulse Ox 36.9 C 108 H 20 H 129/75 H 95 12/09/17 10:00 12/09/17 11:04 12/09/17 10:00 12/09/17 10:00 12/09/17 10:00 Oxygen Flow Rate (L/min) 2 Oxygen Delivery Method Nasal Cannula Weight: 97.1 kg Body Mass Index (BMI) 32.8 Intake and Output for Last 24 Hours Intake Total 65 65 3760 / 3760 457.8 / 457.8 Balance 65 65 3760 / 3760 457.8 / 457.8 Microbiology Past 72 Hours 12/08/17 07:53 Respiratory Culture - Preliminary Sputum, Expectorated/Coughed 12/07/17 23:34 Respiratory Panel (PCR) - Final Laboratory Tests Past 24 Hrs WBC 4.9 RBC 3.74 L Hgb 10.6 L Hct 33.7 L MCV 90.1 MCH 28.3 MCHC 31.5 L RDW 16.4 H RDW Differential 52.2 H POC Glucose POC Glucose 150 H 100 67 L POC Glucose 177 H 110 Assessment/Plan All Active Problems (Last Updated 09/16/17 @ 19:52 by Gilma Phelps) Severe sepsis (Acute) Pneumonia (Acute) Aortic stenosis, severe (Resolved) RECOMMENDATIONS: 1. Initiate steroid therapy empirically 2. Continue with antibiotics and bronchodilators 3. Wean oxygen as tolerated 4. Will need outpatient repeat CT scan to ensure resolution 5. Cannot exclude the need for bronchoscopy as an outpatient IMPRESSIONS: 1. Acute combined respiratory failure Likely multifactorial. Patient does have groundglass opacities noted of the left upper lobe. No environmental exposures are reported. This can be seen in hypersensitivity pneumonitis. Patient may also have acute pneumonia. Agree with antibiotics for 24-48 hours. Patient will also be complicated by significant cardiac history. Continue with pulmonary toileting. Patient will need a walking oximetry prior to discharge. Continue with BiPAP rescue as necessary during the day. 2. Lactic acidosis secondary to hypoxemia Patient with significant improvement following supplemental oxygen therapy. Patient does have an echocardiogram pending at this time. Patient did have some lower blood sugars this morning, but incremented appropriately. 3. Bilateral pleural effusion secondary to acute on chronic congestive heart failure/paroxysmal A. fib Patient to have an echocardiogram later today for quantification and clarification of heart function. Patient does have a history of aortic valve and mitral valve disease. Clinical suspicion for secondary pulmonary hypertension. Continue to wean oxygen as tolerated. Would not be opposed to mild diuretic therapy, but defer to hospitalist. Rate is relatively controlled at this time. 4. Diabetes mellitus type 2/hyperlipidemia/hypothyroidism/carotid artery stenosis/history of CVA/sick sinus syndrome/advanced age Complicates care, management, recovery and prognosis. Okay to continue with baseline medications. May require supplemental insulin therapy given the need for steroids. Code Visit Inpatient E AND M: 02363 Init Hosp L3 12/10/17 0529 <Electronically signed by Daniel Phillips MD> Date Daniel Phillips MD Cosigner Signature (if applicable): Date CC: Daniel Phillips MD; Lei Funes DO Signed BEDSIDE GLUCOSE Collected: 12/09/2017 Status: F Source: [place] 10:10 PM [facility] REPOSITORY TYPE CODE TESTS RESULT OUT OF REFERENCE UNITS RANGE LAB L501.080 70-110 mg/dL High BEDSIDE GLU 268 Result Comment: MANAGEMENT OF PATIENT CARE PER NURSING PROTOCOL Performed By: #### L501.080 #### [facility] Laboratory Point of Care [address] [place] [address] BEDSIDE GLUCOSE Collected: 12/09/2017 Status: F Source: [place] 3:58 PM [facility] REPOSITORY TYPE CODE TESTS RESULT OUT OF REFERENCE UNITS RANGE LAB L501.080 70-110 mg/dL High BEDSIDE GLU 290 Result Comment: MANAGEMENT OF PATIENT CARE PER NURSING PROTOCOL Performed By: #### L501.080 #### [facility] Point of Care [address] [place] [address] ECHOCARDIOGRAM COMPLETE Observed: 12/09/2017 Status: F Source: [place] 3:38 PM [facility] REPOSITORY [facility] Cardiovascular Services [address] [place] [address] Echo Complete 12/09/17 0932 MR#: [id number] Acct: [id number] Name: MIKALA WILSON Rep #: [id number] : 1940 77 From: Marcos Tucker MD Attending Dr: Usman Matos DO Status: ADM IN Ordering Dr: Rica Read Date: 12/08/17 Location: [facility] Sex: M C Admitted: 12/07/17 Version 2 Reason For Study: ARRHYTHMIA Procedure This was a 2D Doppler, Color Flow transthoracic echocardiogram. The exam was of fair technical quality due to body habitus. The study was technically difficult. Exam performed in department. Left Ventricle Normal LV size. Moderate concentric left ventricular hypertrophy. Mild global left ventricular systolic dysfunction. The estimated ejection fraction is 40 %. Unable to assess diastolic dysfunction. Right Ventricle Moderately dilated right ventricle. ICD or pacer leads identified within the right ventricle. Normal systolic function. Atria The left atrium is severely enlarged. The right atrium is severely enlarged. ICD or pacer leads identified within the right atrium. No doppler evidence for ASD. Mitral Valve Mild diffuse mitral valve thickening. Mild focal mitral valve calcification of the posterior leaflet. Mild-Moderate mitral valve stenosis. An annuloplasty ring is noted in the mitral position. MIld (1+) transvalvular insufficiency of the mitral valve. Tricuspid Valve Normal tricuspid valve. Moderately severe (3+) tricuspid valve insufficiency. Right ventricular systolic pressure estimated to be 45 mmHg. Aortic Valve Stable appearing bioprosthetic aortic valve apparatus. Pulmonic Valve The pulmonic valve is not well visualized. Trivial pulmonic valve insufficiency. Great Vessels Normal sized aortic root. Pericardium/Pleural No pericardial effusion. MMode/2D Measurements AND Calculations LVIDd: 4.7 cm IVSd: 1.7 cm LVOT diam: 2.1 cm LVIDs: 4.1 cm LVPWd: 1.5 cm LVOT area: 3.5 cm2 RVDd: 6.6 cm FS: 12.7 % Ao root diam: 3.4 cm LAV(MOD-bp): 111.2 ml LA A4 area: 30.6 cm2 LAV(MOD-bp) Indexed: 53.4 ml/m2 LAV(MOD-sp2): 122.6 ml LAV(MOD-sp4): 102.4 ml RA A4 area: 34.0 cm2 Doppler Measurements AND Calculations MV V2 max: 194.1 cm/sec Ao V2 max: 182.0 cm/sec LV V1 max: 113.1 cm/sec MV max P.2 mmHg Ao max P.4 mmHg LV V1 max P.3 mmHg MV V2 mean: 100.9 cm/sec Ao V2 mean: 135.9 cm/sec LV V1 mean P.0 mmHg MV mean P.3 mmHg Ao mean P.0 mmHg LV V1 mean: 80.0 cm/sec MV V2 VTI: 34.6 cm Ao V2 VTI: 30.7 cm LV V1 VTI: 17.8 cm MVA(VTI): 1.8 cm2 GREGG(I,D): 2.0 cm2 GREGG(V,D): 2.1 cm2 SV(LVOT): 61.7 ml PA V2 max: 76.1 cm/sec PI end-d jimy: 118.0 cm/sec TR max jimy: 271.5 cm/sec TR max P.5 mmHg Interpretation Summary The study was technically difficult. Mild global left ventricular systolic dysfunction. The estimated ejection fraction is 40 %. Moderate concentric left ventricular hypertrophy. Moderately dilated right ventricle. The left atrium is severely enlarged. The right atrium is severely enlarged. An annuloplasty ring is noted in the mitral position. Mild-Moderate mitral valve stenosis. MIld (1+) transvalvular insufficiency of the mitral valve. Moderately severe (3+) tricuspid valve insufficiency. Stable appearing bioprosthetic aortic valve apparatus. Trivial pulmonic valve insufficiency. Right ventricular systolic pressure estimated to be 45 mmHg. Unable to assess diastolic dysfunction. Ordering Physician: Rica Read Referring Physician: Lei Funes Performed By: Leticia Matos, RDCS, RVT 12/09/17 1538 Date Marcos Tucker MD CC: Rica Read; Usman Matos DO; Lei Funes DO Date Dictated: 12/09/17 0932 Date Transcribed: 12/09/171537 Geosciences Professor: Signed 12 LEAD ELECTROCARDIOGRAM Observed: 12/09/2017 Status: F Source: [place] 1:15 PM [facility] REPOSITORY [facility] Cardiovascular Services [address] [place] [address] 12 Lead EKG 12/07/17 1850 MR#: [id number] Acct: [id number] Name: ADOLFO WILSONCirilo Kaiser Rep #: [id number] : 1940 77 From: Jesse Luque MD Attending Dr: Usman Matos DO Status: ADM IN Ordering Dr: Haile Quiles MD Date: 12/07/17 Location: [facility] Sex: M C Admitted: 12/07/17 Test Reason : SOB Blood Pressure : / mmHG Vent. Rate : 108 BPM Atrial Rate : 108 BPM P-R Int : 152 ms QRS Dur : 124 ms QT Int : 406 ms P-R-T Axes : 000 -26 076 degrees QTc Int : 544 ms Sinus tachycardia with Premature supraventricular complexes and with occasional Premature ventricular complexes Right bundle branch block Abnormal ECG Confirmed by JESSE LUQUE ([id number]), multimedia editor IZZY SNYDER ([id number]) on 12/09/2017 1:15:24 PM Referred By: DARA Confirmed By:JESSE LUQUE 12/09/17 1316 Date Jesse Luque MD CC: Usman Matos DO; Lei Funes DO; Haile Quiles MD Signed BEDSIDE GLUCOSE Collected: 12/09/2017 Status: F Source: OLMAN 11:07 AM [facility] REPOSITORY TYPE CODE TESTS RESULT OUT OF REFERENCE UNITS RANGE LAB L501.080 70-110 mg/dL High BEDSIDE GLU 150 Result Comment: MANAGEMENT OF PATIENT CARE PER NURSING PROTOCOL Performed By: #### L501.080 #### [facility] Point of Care [address] [place], [place] [id number] BEDSIDE GLUCOSE Collected: 12/09/2017 Status: F Source: OLMAN 7:34 AM [facility] REPOSITORY TYPE CODE TESTS RESULT OUT OF RANGE REFERENCE UNITS LAB L501.080 70-110 mg/dL Normal BEDSIDE GLU 100 Result Comment: MANAGEMENT OF PATIENT CARE PER NURSING PROTOCOL Performed By: #### L501.080 #### [facility] Point of Care [address] [place] [address] BEDSIDE GLUCOSE Collected: 12/09/2017 Status: F Source: OLMAN 6:49 AM [facility] REPOSITORY TYPE CODE TESTS RESULT OUT OF REFERENCE UNITS RANGE LAB L501.080 70-110 mg/dL Low BEDSIDE GLU 67 Result Comment: MANAGEMENT OF PATIENT CARE PER NURSING PROTOCOL Performed By: #### L501.080 #### [facility] Point [place] [address] CBC W/DIFF, AUTOMATED Collected: 12/09/2017 Status: F Source: OLMAN 6:14 AM [facility] REPOSITORY TYPE CODE TESTS RESULT OUT OF RANGE REFERENCE UNITS LAB L100.1000 4.4-11.0 K/mm3 Normal WBC 4.9 LAB L100.1200 4.6-6.2 M/mm3 Low RBC 3.74 LAB L100.1300 13.0-16.5 g/dl Low HGB 10.6 LAB L100.1400 40-54 % Low HCT 33.7 LAB L100.1500 80-94 fL Normal MCV 90.1 LAB L100.1600 27.0-32.0 pg Normal MCH 28.3 LAB L100.1700 32-36 g/gl Low MCHC 31.5 LAB L100.1810 11.6-14.6 % High RDW CV 16.4 LAB L100.1820 35.1-43.9 fl High RDW SD 52.2 LAB L100.1900 150-450 K/mm3 Normal PLT 150 LAB L100.2000 6.2-12.0 fl Normal MPV 10.5 LAB L100.2100 47-70 % High NEUT% 76.8 LAB L100.2200 19-41 % Low LY% 10.6 LAB L100.2300 0-10 % Normal MONO% 10.0 LAB L100.2400 0-5 % Normal EO% 1.8 LAB L100.2500 0-1 % Normal BASO% 0.2 LAB L100.2550 0.0-0.9 % Normal IM GRAN % 0.600 Result Comment: IG% - Immature Granulocytes (promyelocytes, myelocytes and metamyelocytes) > 1% indicates that a LEFT SHIFT is Present. LAB L100.2620 2.0-7.7 X10 3/uL Normal Absolute Neut 3.8 LAB L100.2720 0.83-4.51 X10 3/ul Low Absolute Lymph 0.52 LAB L100.4500 Normal SMEAR COMMENT COMMENT Result Comment: SLIDE SCANNED - LYMPHOPENIA. Performed By: #### L100.0100 #### [facility] [address] [place], [address] BASIC METABOLIC Collected: 12/09/2017 Status: F Source: [place] PROFILE (BMP) 6:14 AM [facility] REPOSITORY TYPE CODE TESTS RESULT OUT OF RANGE REFERENCE UNITS LAB L501.0100 74-106 mg/dL Low GLU 62 Result Comment: Please note revised GLUCOSE reference range effective 2017. LAB L501.1000 7-18 mg/dL High BUN 25 LAB L501.1100 0.70-1.30 mg/dL Normal CREAT,SERUM 1.00 Result Comment: The validity of the calculated GFR AND GFRAA in patients over 70 years has not been determined. Clinical correlation is essential. LAB L501.1110 >60 mL/min Normal EST GFR 77 Result Comment: Non- GFR Calc LAB L501.1115 >60 mL/min Normal EST GFR - AA 94 Result Comment: GFR Calc LAB L501.1255 ml/min Normal Estimated CRCL 56.71 LAB L501.1300 10-20 RATIO High BUN/CRE 25.0 LAB L501.2200 8.5-10 mg/dL Low .1 CA 8.2 LAB L501.5300 136-14 mmol/L Normal 5 NA 143 LAB L501.5600 3.5-5. mmol/L Normal 1 K 4.0 LAB L501.5900 98-107 mmol/L Normal CL 107 LAB L501.6100 21.0-3 mmol/L Normal 2.0 CO2 25.0 LAB L501.6200 5-15 Normal GAP 11 Performed By: #### L500.2500 #### [facility] [address] [place], [address] BEDSIDE GLUCOSE Collected: 12/08/2017 Status: F Source: OLMAN 10:05 PM [facility] RE[facility] TYPE CODE TESTS RESULT OUT OF REFERENCE UNITS RANGE LAB L501.080 70-110 mg/dL High BEDSIDE GLU 177 Result Comment: MANAGEMENT OF PATIENT CARE PER NURSING PROTOCOL Performed By: #### L501.080 #### [facility] Point of Care [address] [place] [address] BEDSIDE GLUCOSE Collected: 12/08/2017 Status: F Source: OLMAN 4:33 PM [facility] RE[facility] TYPE CODE TESTS RESULT OUT OF RANGE REFERENCE UNITS LAB L501.080 70-110 mg/dL Normal BEDSIDE GLU 110 Result Comment: MANAGEMENT OF PATIENT CARE PER NURSING PROTOCOL Performed By: #### L501.080 #### [facility] Point of Care [address] [place], [place] [id number] BEDSIDE GLUCOSE Collected: 12/08/2017 Status: F Source: OLMAN 11:21 AM [facility] TYPE CODE TESTS RESULT OUT OF REFERENCE UNITS RANGE LAB L501.080 70-110 mg/dL High BEDSIDE GLU 224 Result Comment: MANAGEMENT OF PATIENT CARE PER NURSING PROTOCOL Performed By: #### L501.080 #### [facility] Point of Care [address] [place] [address]. [place], [place] [address] Observed: 12/08/2017 Status: F Source: [place] LEGIONELLA ANTIGEN 7:53 AM [facility] URINE REPOSITORY Send Results To: PCU Has pt arrived? Y Specimen Source: URINE, CLEAN CATCH Legionella, UR Legionella Antigen result interpretation: Negative Presumptive negative for Legionella pneumophila serogroup 1 antigen in urine, suggesting no recent or current infection. Legionella Ag, Urine Negative (See interpretation below) Performed By: #### M300.4500 #### [facility] [address] [place] [address]. [place], [place], [address] STREP Observed: 12/08/2017 Status: F Source: [place]MAN PNEUMONIAE ANTIG(UR,CSF) 7:53 AM [facility] REPOSITORY Send Results To: PCU Has pt arrived? Y S pneumo Ag URINE INTERPRETATION Negative Urine Presumptive negative for pneumococcal pneumonia, suggesting no current or recent pneumococcal infection. Infection due to S pneumoniae cannot be ruled out since the antigen present in the sample may be below the detection limit of the test. Strep pneumo Test Negative URINE (See interpretation below) Performed By: #### M300.4600 #### [facility] [address] [place] [address]. [place], [place], [address] Observed: 12/08/2017 Status: F Source: OLMAN CULTURE, SPUTUM 7:53 AM [facility] REPOSITORY Send Results To: PCU Has pt arrived? Y Gram Stain * This is an amended result. * A prior result that was reported as final has been changed. 12/09/17 1345 by BRIAN Previously reported as: FINAL Acceptable Specimen? Yes (<25 Epithelial cells per/lpf) Gram Stain 2+ White Blood Cells Rare Epithelial cells 1+ Gram positive cocci in clusters Resp. Culture Mixed normal respiratory dolores. No Haemophilus, Streptococcus pneumoniae, beta-hemolytic Streptococcus or Staphylococcus aureus isolated. Performed By: #### M100.0800 #### [facility] [address] [place], [address] ([phone] BEDSIDE GLUCOSE Collected: 12/08/2017 Status: F Source: OLMAN 7:41 AM [facility] RE[facility]ITORY TYPE CODE TESTS RESULT OUT OF RANGE REFERENCE UNITS LAB L501.080 70-110 mg/dL Normal BEDSIDE GLU 93 Result Comment: MANAGEMENT OF PATIENT CARE PER NURSING PROTOCOL Performed By: #### L501.080 #### [facility] Point of Care [address] [place] [address] BEDSIDE GLUCOSE Collected: 12/08/2017 Status: F Source: OLMAN 7:14 AM [facility] RE[facility] TYPE CODE TESTS RESULT OUT OF REFERENCE UNITS RANGE LAB L501.080 70-110 mg/dL Low BEDSIDE GLU 66 Result Comment: MANAGEMENT OF PATIENT CARE PER NURSING PROTOCOL Performed By: #### L501.080 #### [facility] Point of Care [address] [place] [address] BEDSIDE GLUCOSE Collected: 12/08/2017 Status: F Source: OLMAN 6:59 AM [facility] TYPE CODE TESTS RESULT OUT OF REFERENCE UNITS RANGE LAB L501.080 70-110 mg/dL Low BEDSIDE GLU 58 Result Comment: MANAGEMENT OF PATIENT CARE PER NURSING PROTOCOL Performed By: #### L501.080 #### [facility] Point of Care [address] [place] [address] LACTIC ACID Collected: 12/08/2017 Status: F Source: GORDON 5:18 AM [facility] REPOSITORY Order Comment: Yes/No query for Sepsis Lactate Rule Y TYPE CODE TESTS RESULT OUT OF RANGE REFERENCE UNITS LAB L503.6005 0.4-2.0 mmol/L Normal LACTIC ACID 1.4 Performed By: #### L503.6005 #### [facility] [address] [place], [address] TROPONIN-I Collected: 12/08/2017 Status: F Source: GORDON 5:18 AM [facility] REPOSITORY Order Comment: 'TROP' Serial specimen #1, #2 or #3: 3 TYPE CODE TESTS RESULT OUT OF RANGE REFERENCE UNITS LAB L501.4010 <0.045 ng/mL High 0.050 TROPONIN-I Result Comment: TROPONIN-I EXPECTED VALUES <0.045 Negative 0.045 - 0.590 Consistent with Cardiac Damage > OR = 0.600 Critical Value Not every elevated troponin is indicative of LA. These values should be used with clinical judgement in examining the patient's clinical picture for diagnosis. To establish a diagnosis of LA versus myocardial injury, there must be a demonstrated rise and/or fall in the troponin values, in addition to ischemic symptoms, EKG changes, new regional wall motion abnormality, and/or angiographical evidence. PLEASE NOTE: REFERENCE RANGES EDITED 17 Performed By: #### L501.4010 #### [facility] [place], [address] TROPONIN-I Collected: 12/08/2017 Status: F Source: [place]ORDON 1:44 AM [facility] REPOSITORY Order Comment: 'TROP' Serial specimen #1, #2 or #3: 2 TYPE CODE TESTS RESULT OUT OF RANGE REFERENCE UNITS LAB L501.4010 <0.045 ng/mL High 0.056 TROPONIN-I Result Comment: TROPONIN-I EXPECTED VALUES <0.045 Negative 0.045 - 0.590 Consistent with Cardiac Damage > OR = 0.600 Critical Value Not every elevated troponin is indicative of LA. These values should be used with clinical judgement in examining the patient's clinical picture for diagnosis. To establish a diagnosis of LA versus myocardial injury, there must be a demonstrated rise and/or fall in the troponin values, in addition to ischemic symptoms, EKG changes, new regional wall motion abnormality, and/or angiographical evidence. PLEASE NOTE: REFERENCE RANGES EDITED 17 Performed By: #### L501.4010 #### [facility] [address] [place], [address] BLOOD GASES BY CPS Collected: 12/08/2017 Status: F Source: GORD[place] 12:56 AM [facility] REPOSITORY TYPE CODE TESTS RESULT OUT OF RANGE REFERENCE UNITS LAB L9000.9990 Normal BLD GAS TYPE ART LAB L9001.1000 Normal SITE R Radial LAB L9001.1010 Normal ALMAS TEST POS LAB L9001.1050 O2 Normal Delivery Dev Bi / C PAP LAB L9001.1070 RR Normal 28 LAB L9001.1074 Normal FI02 30 LAB L9001.1090 Normal EPAP 10 LAB L9001.1104 Normal Results To HOSP MD LAB L9001.1105 Normal Time Given 45 LAB L9001.1110 7.35-7.45 High pH - I-STAT 7.48 LAB L9001.1210 35-45 mmHg Low pCO2 - ISTAT 25.7 LAB L9001.1310 75-100 mmHG High PO2 I-STAT 102 LAB L9001.2300 22-26 mmol/L Low HCO3 ISTAT 19.1 LAB L9001.2400 -2 to +2 mmol/L Low BE ISTAT -4 LAB L9001.2415 mmol/L Normal TOTAL CO2 20 ISTAT LAB L9001.2425 95-99 % Normal SO2 ISTAT 98 Performed By: #### L9000.0800 #### [facility] Point of Care [address] [place] [address] EMERGENCY DEPARTMENT Observed: 12/08/2017 Status: F Source: G[place] SUMMARY 12:24 AM [facility] REPOSITORY [facility] Medical Records Department [address] [place] [address] Emergency Department Summary 12/07/17 1845 MR#: [id number] Acct: [id number] Name: MIKALA WILSON Rep #: [id number] : 1940 77 From: Haile Quiles MD PCP: Lei Funes DO Status: ADM IN - ER Visit Summary Date of Service: 12/07/17 Chief Complaint: Cough History of Present Illness: The patient is a [address] Ayoub, Dr. Phillips, and Dr. Funes. He reports he has a cough began approximately 2 weeks ago. Is nonproductive. He has had chills without fever. Reports he has had shortness of breath over the same timeframe, but it is gotten much worse the past 2 days. States that his shortness of breath is severe at this time. He denies any chest pain or abdominal pain. He has been nauseated and having the dry heaves. He has vomited once. No blood in his emesis. His last bowel was today. No melena or hematochezia. No other complaints. Physical Examination: Vitals: 97.3, 112/77, 116, 24, 87% on room air which is hypoxic General: Well-nourished and well-developed. Head: Normocephalic atraumatic. Neck: Supple, no lymphadenopathy. No JVD. Nontender. Cardiovascular: Tachycardic irregular rhythm with a 2 out of 6 systolic murmur. Respiratory: No respiratory distress. Rhonchi at the left base. Abdominal: Soft, nontender, nondistended, normal bowel sounds. No guarding, rebound, or peritoneal signs. Back: Nontender. Extremities: Nontender, 1+ pitting edema over his lower extremities bilaterally. Skin: Normal color, no rash. Neurologic: Alert and oriented 3. Cranial nerves II through XII are intact. Normal strength and sensation. Psych: Normal affect. Test Results: EKG is sinus tach at 108 with PACs, PVCs, right bundle branch block. Chem-7 is more for chloride 109, BUN 25, glucose 190. Initial troponin 0 0.041. CBC is marked for an H AND H 12.0, 38.7. Segment neutrophils 81 lymphs lites of 9. Lactic acid is 3.8. Chest x-ray read by the radiologist is mild pulmonary valve venous congestion. I do not feel that this explains patient's degree of hypoxia therefore a CTA of the chest was performed. It showed no PE. However, he did have groundglass opacity in the left upper lobe with which is consistent with an interstitial pneumonia. Does have small pleural effusions. Emergency Department Course and Treatment: Patient had an IV placed. He was given Cardizem IV. Patient's blood pressure remained stable while in the emergency department. He was given Levaquin and Zosyn IV. Treatment Plan: Patient was discussed with Dr. Read. He will be admitted to the hospital for further evaluation and treatment. Disposition: Admitted in serious condition. Impression: 1. Atrial fibrillation with RVR. 2. Pneumonia, community-acquired. 3. Severe sepsis. 4. Critical care time 30 minutes. This note was generated with [employer] software. It may contain incorrect words, spelling, and punctuation that were not noted in review of the chart prior to signing ED Disposition - Plan for ED Patient: Chief Complaint: Shortness of Breath What to do if you have Problems For any increased pain, shortness of breath, bleeding, nausea or vomiting, chest pain, or any unexpected problems, contact your Primary Care Provider. Call [facility] ([phone]) or report to the closest Emergency Room. Call 911 if necessary. 12/08/17 0024 <Electronically signed by Haile Quiles MD> Date Haile Quiles MD Cosigner Signature (If Indicated): Date CC: Lei Funes DO BEDSIDE GLUCOSE Collected: 12/08/2017 Status: F Source: OLMAN 12:02 AM [facility] REPOSITORY TYPE CODE TESTS RESULT OUT OF REFERENCE UNITS RANGE LAB L501.080 70-110 mg/dL High BEDSIDE GLU 119 Result Comment: MANAGEMENT OF PATIENT CARE PER NURSING PROTOCOL Performed By: #### L501.080 #### [facility] Point of Care [address] [address] Observed: 12/07/2017 Status: F Source: [place] RESPIRATORY PANEL 11:34 PM [facility] MOLECULAR REPOSITORY RP PANEL ADENOVIRUS Not Detected HUMAN METAPHNEUMO Not Detected INFLUENZA A Not Detected INFLUENZA A (SUBTYPE H1) Not Detected INFLUENZA A (SUBTYPE H3) Not Detected INFLUENZA B Not Detected PARAINFLUENZA 1 Not Detected PARAINFLUENZA 2 Not Detected PARAINFLUENZA 3 Not Detected PARAINFLUENZA 4 Not Detected RHINOVIRUS Not Detected RSV A Not Detected RSV B Not Detected NAAT METHOD Testing was performed using nucleic acid amplification Performed By: #### M100.638 #### [facility] [address] [place], [address] TROPONIN-I Collected: 12/07/2017 Status: F Source: [place] 11:25 PM [facility] REPOSITORY Order Comment: 'TROP' Serial specimen #1, #2 or #3: 1 TYPE CODE TESTS RESULT OUT OF RANGE REFERENCE UNITS LAB L501.4010 <0.045 ng/mL High 0.048 TROPONIN-I Result Comment: TROPONIN-I EXPECTED VALUES <0.045 Negative 0.045 - 0.590 Consistent with Cardiac Damage > OR = 0.600 Critical Value Not every elevated troponin is indicative of LA. These values should be used with clinical judgement in examining the patient's clinical picture for diagnosis. To establish a diagnosis of LA versus myocardial injury, there must be a demonstrated rise and/or fall in the troponin values, in addition to ischemic symptoms, EKG changes, new regional wall motion abnormality, and/or angiographical evidence. PLEASE NOTE: REFERENCE RANGES EDITED 17 Performed By: #### L501.4010, L501.5200 #### [facility] [address] [place], [address] MAGNESIUM Collected: 12/07/2017 Status: F Source: [place] 11:25 PM [facility] RE[facility]ORY Order Comment: 'TROP' Serial specimen #1, #2 or #3: 1 TYPE CODE TESTS RESULT OUT OF RANGE REFERENCE UNITS LAB L501.5200 1.6-2.6 mg/dL Normal MG 2.1 Performed By: #### L501.4010, L501.5200 #### [facility] [address] [place], [address] LACTIC ACID Collected: 12/07/2017 Status: F Source: [place] 11:25 PM [facility] TYPE CODE TESTS RESULT OUT OF REFERENCE UNITS RANGE LAB L503.6005 0.4-2.0 mmol/L High LACTIC ACID 2.2 Result Comment: Critical Result(s) Called at: 23:59:08 12/07/2017 by: MIKE ALONZO to [facility] PCU Performed By: #### L503.6005 #### [facility] [address] [facility] [place], [address] HISTORY AND PHYSICAL Observed: 12/07/2017 Status: F Source: [place] EXAM 9:50 PM [facility] REPOSITORY [facility] Medical Records Department [address] [place] [address] History and Physical 12/07/172111 MR#: [id number] Acct: [id number] Name: MIKALA WILSON Rep #: [id number] : 1940 77 From: Rica Read PCP: Lei Funes DO Status: REG ER Y Location: ED Problem List (1) Severe sepsis Status: Acute (2) Pneumonia Status: Acute Qualifiers: Pneumonia type: due to unspecified organism Laterality: left Lung location: upper lobe of lung Qualified Code(s): J18.1 - Lobar pneumonia, unspecified organism (3) Sick sinus syndrome Status: Chronic (4) CLEMENT (obstructive sleep apnea) Status: Chronic (5) Congestive heart failure, unspecified Status: Chronic Qualifiers: Heart failure type: unspecified Heart failure chronicity: unspecified Qualified Code(s): I50.9 - Heart failure, unspecified (6) Carotid artery stenosis Status: Chronic Qualifiers: Laterality: unspecified laterality Qualified Code(s): I65.29 - Occlusion and stenosis of unspecified carotid artery (7) Chronic atrial fibrillation Status: Chronic (8) Atherosclerotic heart disease of [place] coronary artery without angina pectoris Status: Chronic Qualifiers: [place] vs. transplanted heart: unspecified whether [place] or transplanted heart Qualified Code(s): I25.10 - Atherosclerotic heart disease of [place] coronary artery without angina pectoris (9) History of maze procedure Status: Chronic Comment: mitral valve repair and MAZE procedure 01/24/[address] Tolliver @ [facility] (10) Duodenal ulcer Status: Chronic (11) Hyperlipidemia Status: Chronic Qualifiers: Hyperlipidemia type: pure hypercholesterolemia Qualified Code(s): E78.00 - Pure hypercholesterolemia, unspecified; E78.0 - Pure hypercholesterolemia (12) Status post placement of cardiac pacemaker Status: Chronic Comment: Permanent pacemaker placement 02/02/16 @ [facility] (13) Status post mitral valve repair Status: Chronic Comment: mitral valve repair and MAZE procedure 01/24/[address] 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 CHF history, PAD/Carotid Disease, CLEMENT, HTN, HLD, s/p pacemaker status, Osteoarthritis, Anxiety and Depression who presents to the [facility] ED on 12/07/17 with history of ongoing progressively worsening dyspnea, not markedly productive cough, debilitating weakness x 2 weeks but worsened over the last 2 days. and patient note that he was seen this past year by Dr. Phillips and treated for fungal infection but improved following. In the ED work- up included T 97.3, heart rate 116, BP 112/77, respiratory rate 24 with 87% on room air--> 95% on 2 L nasal cannula, CBC with WBC 6.3, hemoglobin 12, platelet 202, BMP with chloride 109, BUN/creatinine 25/1.20, glucose 190, lactic acid 3.8, troponin 0 0.041, chest x-ray with cardiac enlargement and mild congestion, CTPA with no evidence of acute PE, mild mediastinal adenopathy, groundglass opacity left upper lobe suspicious for pneumonia, small pleural effusions, mild ascites. In the ED patient administered Cardizem 20 mg IV 1 bolus, normal saline 1 L, Levaquin, Rocephin IV. Past Medical History Past Medical History (Chronic Problems): Chronic Problems (Last Updated 09/16/17 @ 19:52 by Gilma Phelps) Sick sinus syndrome (Chronic) CLEMENT (obstructive sleep apnea) (Chronic) Congestive heart failure, unspecified (Chronic) Other secondary pulmonary hypertension (Chronic) Nonrheumatic mitral valve regurgitation (Chronic) Nonrheumatic aortic (valve) stenosis (Chronic) Nonrheumatic aortic (valve) insufficiency (Chronic) Carotid artery stenosis (Chronic) Chronic atrial fibrillation (Chronic) Atherosclerotic heart disease of [place] coronary artery without angina pectoris (Chronic) History of maze procedure (Chronic) mitral valve repair and MAZE procedure 01/24/[address] Tolliver @ [facility] UGIB (upper gastrointestinal bleed) (Chronic) Duodenal ulcer (Chronic) Physical debility (Chronic) Supratherapeutic INR (Chronic) Hypokalemia (Chronic) Pancytopenia (Chronic) Symptomatic anemia (Chronic) Sepsis (Chronic) Hyperlipidemia (Chronic) Status post placement of cardiac pacemaker (Chronic) Permanent pacemaker placement 02/02/16 @ [facility] Status post mitral valve repair (Chronic) mitral valve repair and MAZE procedure 01/24/[address] Tolliver @ [facility] 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) Aortic Valve Replacement w/ 23-mm Jay-Aragon pericardial valve Atrial fibrillation (Chronic) DM2 (diabetes mellitus, type 2) (Chronic) Medical History: Medical History (Last Updated 09/16/17 @ 19:52 by Gilma Phelps) Sick sinus syndrome (Chronic) I49.5 CLEMENT (obstructive sleep apnea) (Chronic) G47.33 Congestive heart failure, unspecified (Chronic) I50.9 Other secondary pulmonary hypertension (Chronic) I27.29 Nonrheumatic mitral valve regurgitation (Chronic) I34.0 Nonrheumatic aortic (valve) stenosis (Chronic) I35.0 Nonrheumatic aortic (valve) insufficiency (Chronic) I35.1 Carotid artery stenosis (Chronic) I65.29 Chronic atrial fibrillation (Chronic) I48.2 Atherosclerotic heart disease of [place] coronary artery without angina pectoris (Chronic) I25.10 Hyperlipidemia (Chronic) E78.5 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) Z95.3 Aortic Valve Replacement w/ 23-mm Jay-Aragon pericardial valve DM2 (diabetes mellitus, type 2) (Chronic) E11.9 Hypothyroidism E03.9 Allergies No Known Allergies Allergy (Verified 12/07/17 18:24) Home Medications: Ambulatory Orders Medication Instructions Recorded Glimepiride [Amaryl] 4 mg PO DAILY@0800 #30 tab 02/25/17 Metformin HCl [Glucophage] 500 mg PO BIDCM #30 tab 02/25/17 Pioglitazone [Actos] 30 mg PO DAILY@0800 #30 tab 02/25/17 Surgical History: Surgical History (Last Reviewed 07/24/17 @ 09:26 by Abhishek Ayoub MD) History of maze procedure (Chronic) Z98.890 mitral valve repair and MAZE procedure 01/24/[address] Tolliver @ [facility] Status post placement of cardiac pacemaker (Chronic) Z95.0 Permanent pacemaker placement 02/02/16 @ [facility] Status post mitral valve repair (Chronic) Z98.890 mitral valve repair and MAZE procedure 01/24/[address] 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 Psychiatric History: No pertinent psych hx Lives: Spouse/ Significant Other Smoking Status: Former smoker Tobacco Use: Non-smoker Alcohol: None Drugs: None - *Family History Maternal Family History: Family History (Last Reviewed 07/24/17 @ 09:26 by Abhishek Ayoub MD) Mother Myocardial infarction CAD (coronary artery disease) Hypertension Sister Hypertension CVA (cerebral vascular accident) Son Diabetes History Items: Heart Disease, Hypertension Paternal Family History: Family History (Last Reviewed 07/24/17 @ 09:26 by Abhishek Ayoub MD) Mother Myocardial infarction CAD (coronary artery disease) Hypertension Sister Hypertension CVA (cerebral vascular accident) Son Diabetes History Items: No pertinent history Sibling Family History: Family History (Last Reviewed 07/24/17 @ 09:26 by Abhishek Ayoub MD) Mother Myocardial infarction CAD (coronary artery disease) Hypertension Sister Hypertension CVA (cerebral vascular accident) Son Diabetes History Items: Hypertension, Stroke Offspring Family History: Family History (Last Reviewed 07/24/17 @ 09:26 by Abhishek Ayoub MD) Mother Myocardial infarction CAD (coronary artery disease) Hypertension Sister Hypertension CVA (cerebral vascular accident) Son Diabetes History Items: Diabetes Review of Systems Constitutional: Reports: Anorexia, Malaise, Weakness, Fatigue. Denies: Chills, Fever, Weight Change HEENT: Denies: Head Aches, Sinus Congestion, Sinus Drainage Cardiovascular: Denies: Chest Pain, Palpitations Respiratory: Reports: Cough, Shortness of Breath, Shortness of breath at rest, Shortness of breath upon exertion, Wheezing. Denies: Sputum production Gastrointestinal: Denies: Abdominal Pain, Nausea, Vomiting Genitourinary: Denies: Dysuria Musculoskeletal: Reports: Back Pain. Denies: Joint Pain, Joint Tenderness Skin: Denies: Rash, Wounds Neurological: Denies: Numbness, Tingling, Focal weakness Psychiatric: Reports: Anxiety, Depression. Denies: Homicidal Ideations, Suicidal Ideations Hematologic/ Lymphatic: Reports: Anemia, Easy Bruising, Easy Bleeding VTE Information - Inpt Only VTE Present on Admission: No VTE Mechan Device Prophylaxis: SCD's VTE Pharm Prophylaxis ordered?: Yes Patient Problems: Active and Suspected Problems (Last Updated 09/16/17 @ 19:52 by Gilma Phelps) Severe sepsis (Acute) Pneumonia (Acute) Subjective: Seated upright in the ED bed, fatigued appearing, increased respiratory rate, accessory muscle usage, intermittent desaturations noted. Objective: Physical Examination: General: awake, alert, oriented x 3 and cooperative, seated upright in the ED bed, increased work of breathing, accessory muscle usage, intermittent desaturations, fatigued appearing. Skin: normal color, turgor, no icterus, cyanosis. HEENT: AT/NC, EOMI, PERRLA, dry MM, no carotid bruits or JVD noted. Lungs: Severely diffusely diminished breath sounds, greater bases, occasional expiratory wheeze, rales, increased work of breathing, accessory muscle usage. Heart: Tachycardic with regular rhythm; no gallop, rub audible, SM. Abdomen: soft, NTTP, ND, normal BS, no HSM. Extremities: no cyanosis, clubbing, BL ankle edema. Neurological: patient awake, alert, oriented x 3; cognitive function intact; pupils equally reactive to light and accomodation; cranial nerves II-XII grossly normal, moving all 4 extremities, no focal deficits, strength severely globally decreased secondary to acute presentation. Psychiatric: affect appears fatigued, no acute evidence of depressive or anxiety feelings. - Physical Exam Vital Signs Temp Pulse Resp BP Pulse Ox 97.3 F L 97 26 H 150/100 H 95 12/07/17 18:23 12/07/17 20:19 12/07/17 20:19 12/07/17 20:19 12/07/17 20:19 Oxygen Flow Rate (L/min) 2 Oxygen Delivery Method Nasal Cannula Weight: 190 lb 11.198 oz Body Mass Index (BMI) 29.8 Finger Stick Blood Glucose 235 Laboratory Tests Past 24 Hrs WBC 6.3 RBC 4.35 L Hgb 12.0 L Hct 38.7 L MCV 89.0 MCH 27.6 Assessment/Plan All Active Problems (Last Updated 09/16/17 @ 19:52 by Gilma Phelps) Severe sepsis (Acute) Pneumonia (Acute) Aortic stenosis, severe (Resolved) The patient is a 77 y/o M w/ PMHx: PAF s/p MAZE, Diabetes mellitus type II, GERD w/ Hx duodenal Ulcer, 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 CHF history, PAD/Carotid Disease, CLEMENT, HTN, HLD, s/p pacemaker status, Osteoarthritis, Anxiety and Depression who presents to the [facility] ED on 12/07/17 with history of ongoing progressively worsening dyspnea, not markedly productive cough, debilitating weakness x 2 weeks but worsened over the last 2 days. (1) Severe Sepsis secondary to Acute Hypoxic Respiratory Failure secondary to Community Acquired Pneumonia, Possible Gram Negative Organism: ED work- up included T 97.3, heart rate 116, BP 112/77, respiratory rate 24 with 87% on room air--> 95% on 2 L nasal cannula, CBC with WBC 6.3, hemoglobin 12, platelet 202, BMP with chloride 109, BUN/creatinine 25/1.20, glucose 190, lactic acid 3.8, troponin 0 0.041, chest x-ray with cardiac enlargement and mild congestion, CTPA with no evidence of acute PE, mild mediastinal adenopathy, groundglass opacity left upper lobe suspicious for pneumonia, small pleural effusions, mild ascites. Notable increased work of breathing, accessory muscle usage and hypoxia as noted upon presentation to the ED. Will admit to PCU given his severity, maintain on oxygen with wean as tolerated to room air, continue ATC duonebs, PRN albuterol, maintained on IV Levaquin and Rocephin given severity, HOB, IS parameters w/ pending sputum cultures and urine antigens as well as viral respiratory panel. Bld cx x 2 obtained in the ED. Lactic acid repeat trending per facility protocol. PT, OT, CM for discharge planning. ABG pending. (2) Valvular Heart Disease s/p MV Repair and AVR w/ bovine bioprosthetic valve, 11/15/16 ECHO w/ moderate concentric LVH, EF 65%, moderately dilated RV, severely enlarged LA, severe enlarged RA, moderate diffuse MV thickening, moderate MV stenosis, moderately severe TV insufficiency, moderate pulmonary hypertension, RVSP 49 mmHg. (3) ? CHF history: Not previously noted, not in recent 07/2017 Cardiology office visit, maintain on regimen asa, pletal, not on statin or BB nor ACEI. (4) PAF s/p MAZE: Sinus tachycardia with PAC, PVC w/ administration cardizem bolus in the ED with improvement. 11/15/16 ECHO w/ moderate concentric LVH, EF 65%, moderately dilated RV, severely enlarged LA, severe enlarged RA, moderate diffuse MV thickening, moderate MV stenosis, moderately severe TV insufficiency, moderate pulmonary hypertension, RVSP 49 mmHg. Maintained on asa, pletal as noted. (5) Diabetes mellitus type II: Hold oral home regimen, ADA diet, accu checks w/ ISS. (6) GERD w/ Hx duodenal Ulcer: Famotidine. (7) PAD/Carotid Disease: Maintain on home asa, pletal. (8) Anxiety and Depression: Maintain on home sertraline regimen. (9) CLEMENT: CPAP q HS. (10) Hx Sick Sinus Syndrome: s/p pacemaker placement. (11) DVT prophylaxis: SCDs, lovenox. (12) CODE status: Patient does have living will in place. is HCPOA and present during discussions. Discussed CODE status at length including difference between FULL code, DNR-CCA and DNR-CC status. Following discussions about the differences in these status, confirmed with and patient DNR-CCA, no intubation status. Advanced Care Planning Face to Face Time: 18 minutes. Code Visit Inpatient E AND M: 98786 Init Hosp L3 Procedures: 98953 Advncd Care Plan 30 Min 12/07/17 2150 <Electronically signed by Rica Read > Date Rica Read Cosigner Signature: Date (if applicable) CC: Rica Read; Lei Funes DO Signed CTA CHEST W/WO Observed: 12/07/2017 Status: F Source: [place] CONTRAST 7:47 PM [facility] REPOSITORY [facility] Imaging Services [address] [place] [address] CTA Chest W/WO Contrast MR#: [id number] Acct: [id number] Name: MIKALA WILSON Rep #: [id number] : 1940 M 77 From: Carmencita Le MD PCP: Lei Funes DO Status: REG ER Study: CTA Chest W/WO Contrast Date of Exam: 12/07/17 Exam# [id number] Ordering Dr: Haile Quiles MD STUDY: CTA CHEST REASON FOR EXAM: Male, 77 years old. PE, dyspnea. RADIATION DOSAGE (If Supplied By Facility): CTDIvol = ( 18.93 ) mGy, DLP = ( 629.88 ) mGycm TECHNIQUE: The examination was performed with the intravenous administration of 100 ml of Isovue 370 contrast material. Post-processing of the angiographic images was performed, with multiplanar reformation and 3D reconstruction. Individualized dose optimization techniques were used for this CT. COMPARISON: Noncontrast CT chest 11/15/2016. FINDINGS: The heart is mildly enlarged. Mitral and aortic valves are noted. Pacemaker is present. The aorta is normal in caliber. There is mild mediastinal adenopathy. This appears mildly increased compared to the prior study. There is no evidence of pulmonary embolus. Pulmonary arteries are unremarkable. Trace bilateral pleural effusions are present. Groundglass opacity is noted in the left upper lobe. This is new compared to the prior study. Differential considerations include: Infection, particularly opportunistic; idiopathic interstitial pneumonia; sarcoidosis, less likely malignancy. There is mild free fluid in the upper abdomen. Visualized abdomen is otherwise unremarkable. There is no osseous abnormality. CT/CTA Chest W/WO Contrast IMPRESSION: 1. No evidence of pulmonary embolus. 2. Mild mediastinal adenopathy, mildly increased. 3. Groundglass opacity in the left upper lobe. This may represent infection, interstitial pneumonia, less likely malignancy. Follow-up is advised. 4. Small pleural effusions. 5. Mild ascites. Electronically Signed: Carmencita Le MD at 20:52 EDT Tel , Service support , CC: Lei Funes DO; Haile Quiles MD Geosciences Professor: Signed CBC W/DIFF, AUTOMATED Collected: 12/07/2017 Status: F Source: [place] 6:45 PM [facility] REPOSITORY TYPE CODE TESTS RESULT OUT OF RANGE REFERENCE UNITS LAB L100.1000 4.4-11.0 K/mm3 Normal WBC 6.3 LAB L100.1200 4.6-6.2 M/mm3 Low RBC 4.35 LAB L100.1300 13.0-16.5 g/dl Low HGB 12.0 LAB L100.1400 40-54 % Low HCT 38.7 LAB L100.1500 80-94 fL Normal MCV 89.0 LAB L100.1600 27.0-32.0 pg Normal MCH 27.6 LAB L100.1700 32-36 g/gl Low MCHC 31.0 LAB L100.1810 11.6-14.6 % High RDW CV 16.4 LAB L100.1820 35.1-43.9 fl High RDW SD 53.1 LAB L100.1900 150-450 K/mm3 Normal PLT 202 LAB L100.2000 6.2-12.0 fl Normal MPV 10.2 LAB L100.2100 47-70 % High NEUT% 81.1 LAB L100.2200 19-41 % Low LY% 9.3 LAB L100.2300 0-10 % Normal MONO% 7.8 LAB L100.2400 0-5 % Normal EO% 0.9 LAB L100.2500 0-1 % Normal BASO% 0.3 LAB L100.2550 0.0-0.9 % Normal IM GRAN % 0.600 Result Comment: IG% - Immature Granulocytes (promyelocytes, myelocytes and metamyelocytes) > 1% indicates that a LEFT SHIFT is Present. LAB L100.2620 2.0-7.7 X10 3/uL Normal Absolute Neut 5.1 LAB L100.2720 0.83-4.51 X10 3/ul Low Absolute Lymph 0.59 LAB L100.4500 Normal SMEAR COMMENT SEE COMMENT Result Comment: LYMPHOPENIA NOTED LAB L100.5500 ADEQ Normal PLT ADEQUATE EST LAB L100.7000 NORM C AND NORMAL C Normal RED NORM C+C CELL MORPH Performed By: #### L100.0100 #### [facility] [address] [place], [address] BASIC METABOLIC Collected: 12/07/2017 Status: F Source: [place] PROFILE ([facility]) 6:45 PM [facility] REPOSIT[facility] TYPE CODE TESTS RESULT OUT OF RANGE REFERENCE UNITS LAB L501.0100 74-106 mg/dL High GLU 190 Result Comment: Fasting Glucose result greater than or equal to 126 mg/dL suggests DIABETES MELLITUS per A.D.A. criteria. Please note revised GLUCOSE reference range effective 2017. LAB L501.1000 7-18 mg/dL High BUN 25 LAB L501.1100 0.70-1.30 mg/dL Normal CREAT,SERUM 1.20 Result Comment: The validity of the calculated GFR AND GFRAA in patients over 70 years has not been determined. Clinical correlation is essential. LAB L501.1110 >60 mL/min Normal EST GFR 63 Result Comment: Non- GFR Calc LAB L501.1115 >60 mL/min Normal EST GFR - AA 76 Result Comment: GFR Calc LAB L501.1255 ml/min Normal Estimated CRCL 48.96 LAB L501.1300 10-20 RATIO High BUN/CRE 20.8 LAB L501.2200 8.5-10 mg/dL Normal .1 CA 9.1 LAB L501.5300 136-14 mmol/L Normal 5 NA 143 LAB L501.5600 3.5-5. mmol/L Normal 1 K 4.0 LAB L501.5900 98-107 mmol/L High CL 109 LAB L501.6100 21.0-3 mmol/L Normal 2.0 CO2 21.0 LAB L501.6200 5-15 Normal GAP 13 Performed By: #### L500.2500, L501.4010 #### [facility] [address] [place], [place], [address] TROPONIN-I Collected: 12/07/2017 Status: F Source: [place] 6:45 PM [facility] REPOSITORY TYPE CODE TESTS RESULT OUT OF RANGE REFERENCE UNITS LAB L501.4010 <0.045 ng/mL Normal 0.041 TROPONIN-I Result Comment: TROPONIN-I EXPECTED VALUES <0.045 Negative 0.045 - 0.590 Consistent with Cardiac Damage > OR = 0.600 Critical Value Not every elevated troponin is indicative of LA. These values should be used with clinical judgement in examining the patient's clinical picture for diagnosis. To establish a diagnosis of LA versus myocardial injury, there must be a demonstrated rise and/or fall in the troponin values, in addition to ischemic symptoms, EKG changes, new regional wall motion abnormality, and/or angiographical evidence. PLEASE NOTE: REFERENCE RANGES EDITED 17 Performed By: #### L500.2500, L501.4010 #### [facility] [address] [facility] [facility] [facility] [place], [place], [address] LACTIC ACID Collected: 12/07/2017 Status: F Source: [place] 6:45 PM [facility] REPOSITORY Order Comment: Yes/No query for Sepsis Lactate Rule Y TYPE CODE TESTS RESULT OUT OF REFERENCE UNITS RANGE LAB L503.6005 0.4-2.0 mmol/L High LACTIC ACID 3.8 Result Comment: Critical Result(s) Called Roberto ACOSTA at: 19:42:21 12/07/2017 by: LILLIAM CALLAHAN Performed By: #### L503.6005 #### [facility] [address] [facility], [address] Observed: 12/07/2017 Status: F Source: [place] CULTURE, BLOOD (WB) 6:45 PM [facility] RE[facility]ITORY BC No growth in 5 days. Performed By: #### M200.1000 #### [facility] [address] [place], [address] CHEST PA AND LATERAL Observed: 12/07/2017 Status: F Source: [place] 6:41 PM [facility] REPOSITORY [facility] Imaging Services [address] [place] [address] Chest PA and Lateral MR#: [id number] Acct: [id number] Name: MIKALA WILSON Rep #: [id number] : 1940 M 77 From: Carmencita Le MD PCP: Lei Funes DO Status: REG ER Study: Chest PA and Lateral Date of Exam: 12/07/17 Exam# [id number] Ordering Dr: Haile Quiles MD STUDY: X-RAY CHEST REASON FOR EXAM: Male, 77 years old. SOB. TECHNIQUE: PA and lateral. COMPARISON: 12/11/2016. FINDINGS: The heart is mild to moderately enlarged. Mitral and aortic valve replacements are noted. Sternotomy wires are present. Dual lead cardiac pacemaker is noted on the left. There is atherosclerotic calcification of the aortic arch. Trace pleural effusion is noted on the right. There is mild pulmonary venous congestion. Degenerative changes of the left shoulder are noted. Soft tissues and bony structures are otherwise unremarkable. RAD/Chest PA and Lateral IMPRESSION: Mild pulmonary venous congestion. Cardiac enlargement. Electronically Signed: Carmencita Le MD at 19:20 EDT Tel , Service support , CC: Lei Funes DO; Haile Quiles MD Geosciences Professor: Signed Observed: 12/07/2017 Status: F Source: [place] CULTURE, BLOOD (WB) 6:28 PM [facility] RE[facility] BC No growth in 5 days. Performed By: #### M200.1000 #### [facility] [address] [place], [address] HEMOGLOBIN A1C Collected: 10/27/2017 Status: F Source: [place] 8:01 AM [facility] RE[facility] Order Comment: DR FUNES ORDERED A1C HECAB [facility] ORDERED LIPID LIVER TYPE CODE TESTS RESULT OUT OF RANGE REFERENCE UNITS LAB L501.9985 4.2-6.3 % High HGB A1C 8.2 Performed By: #### L501.9985 #### [facility] [address] [place], [address] MICROALB:CREAT Collected: 10/27/2017 Status: F Source: [place] RATIO,RANDOM UR 8:01 AM [facility] RE[facility] Order Comment: DR FUNES ORDERED A1C HECAB [facility] ORDERED LIPID LIVER TYPE CODE TESTS RESULT OUT OF RANGE REFERENCE UNITS LAB L501.1200 NO RANGE EST. mg/dL Normal UR CREAT 138.00 LAB L502.0500 NO RANGE EST. mg/L Normal 477.0 MICROALBUMIN ,UR LAB L502.0600 <30 mg/g CRE mg/g CRE High 345.7 MALB:CREAT Performed By: #### L502.0250 #### [facility] [address] [facility], [address] COMPREHENSIVE METABOLIC Collected: 10/27/2017 Status: F Source: [place] PROFIL 8:01 AM [facility] REPOSIT[facility] Order Comment: DR FUNES ORDERED A1C HECAB [facility] ORDERED LIPID LIVER TYPE CODE TESTS RESULT OUT OF RANGE REFERENCE UNITS LAB L501.0100 74-106 mg/dL High GLU 110 Result Comment: Fasting Glucose result from 100 to 125 mg/dL suggests IMPAIRED HOMEOSTASIS per A.D.A. criteria. Please note revised GLUCOSE reference range effective 2017. LAB L501.1000 7-18 mg/dL High BUN 23 LAB L501.1100 0.70-1.30 mg/dL Normal CREAT,SERUM 1.11 Result Comment: The validity of the calculated GFR AND GFRAA in patients over 70 years has not been determined. Clinical correlation is essential. LAB L501.1110 >60 mL/min Normal EST GFR 69 Result Comment: Non- GFR Calc LAB L501.1115 >60 mL/min Normal EST GFR - AA 83 Result Comment: GFR Calc LAB L501.1300 10-20 RATIO High BUN/CRE 20.7 LAB L501.1500 6.4-8.2 g/dL T Normal PROT 7.5 LAB L501.1800 3.2-5.0 g/dL Normal ALB 3.9 LAB L501.1950 2.2-4.2 g/dL Normal GLOB 3.6 LAB L501.2000 0.9-2.4 RATIO Normal A/G 1.1 LAB L501.2200 8.5-10.1 mg/dL CA Normal 9.2 LAB L501.4100 15-37 U/L Normal AST 23 LAB L501.4305 45-117 U/L Normal ALK P 86 LAB L501.4405 16-61 U/L Normal ALT 45 LAB L501.4600 0.20-1.00 mg/dL T Normal BILI 0.60 LAB L501.5300 136-145 mmol/L NA Normal 141 LAB L501.5600 3.5-5.1 mmol/L K Normal 3.9 LAB L501.5900 98-107 mmol/L CL Normal 105 LAB L501.6100 21.0-32.0 mmol/L Normal CO2 24.0 LAB L501.6200 5-15 Normal GAP 12 Performed By: #### L500.4050, L500.4100, L501.4700 #### [facility] [address] [place], [address] LIPID PROFILE Collected: 10/27/2017 Status: F Source: [place] 8:01 AM [facility] REPOSIT[facility] Order Comment: DR FUNES ORDERED A1C HECAB MIACRE [facility] ORDERED LIPID LIVER TYPE CODE TESTS RESULT OUT OF RANGE REFERENCE UNITS LAB L501.4900 200 mg/dL Normal CHOL 109 Result Comment: <200 mg/dL Desirable 200-240 mg/dL Borderline >240 mg/dL High Risk LAB L501.5000 mg/dL Normal TRIG 51 Result Comment: The drugs N-Acetylcysteine and Metamizole may falsely depress this assay. Serum Triglycerides Reference Interval Normal <150 mg/dL Borderline high 150 - 199 mg/dL High 200 - 499 mg/dL Very High > or = 500 mg/dL LAB L501.6400 mg/dL Normal HDL 40 Result Comment: The drugs N-Acetylcysteine and Metamizole may falsely depress this assay. Reference Range HDL <40 mg/dL Low HDL Cholesterol HDL >or= 60 mg/dL High HDL Cholesterol LAB L501.6500 0-130 mg/dL Normal LDL 59 LAB L501.6600 5-40 mg/dL Normal VLDL 10 Performed By: #### L500.4050, L500.4100, L501.4700 #### [facility] [address] [facility] [place], [place], [address] BILIRUBIN, DIRECT Collected: 10/27/2017 Status: F Source: [place] 8:01 [facility] REPOSITORY Order Comment: DR FUNES ORDERED A1C HECAB [facility] ORDERED LIPID LIVER TYPE CODE TESTS RESULT OUT OF RANGE REFERENCE UNITS LAB L501.4700 0.00-0.30 mg/dL Normal D BILI 0.22 Performed By: #### L500.4050, L500.4100, L501.4700 #### [facility] [address] [facility] [place], [place], [id number] HEPATITIS C ANTIBODIES Collected: 10/27/2017 Status: F Source: [place] 8:01 [facility] REPOSITORY Order Comment: DR FUNES ORDERED A1C HECAB [facility] ORDERED LIPID LIVER TYPE CODE TESTS RESULT OUT OF RANGE REFERENCE UNITS LAB L3100.0650 0.0-0.9 s/co ratio Normal HEP C AB 0.1 Result Comment: Negative: < 0.8 Indeterminate: 0.8 - 0.9 Positive: > 0.9 The CDC recommends that a positive HCV antibody result be followed up with a HCV Nucleic Acid Amplification test (830365). Performed at: [address] [id number] Messenger Floorperson: Jj Espinoza PhD, Phone: [phone] Performed By: #### L3100.0625 #### [facility] (refer to report for specific site) refer to report for address and phone number PSA,TOTAL- DIAGNOSTIC Collected: 09/29/2017 Status: F Source: [place] 1:27 PM [facility] RE[facility] TYPE CODE TESTS RESULT OUT OF RANGE REFERENCE UNITS LAB L501.9940 0.0-4.0 ng/mL PSA, Normal DIAGNOSTIC 1.77 Result Comment: This test was performed using the TPSA assay method for the [employer]achIt chemistry system. Values obtained with different assay methods cannot be used interchangably. When changing PSA assays in the course of monitoring a patient, additional sequential testing should be carried out to confirm baseline values. Performed By: #### L501.9940 #### [facility] [place], [address] PACEMAKER CHECK Observed: 09/17/2017 Status: F Source: [place] 8:23 AM [facility] [address] [place] [address] Pacemaker Check Date of Service: 09/16/17 1439 MR#: [id number] Acct: [id number] Name: MIKALA WILSON Rep #: [id number] : 1940 From: Gilma Phelps Age/Sex: 76/M [place] [facility] [place]: Signed Comments Summary Comments: Dual Chamber Pacemaker Evaluation: See attached scanned contract programmer report. Interrogation shows 125 MS episodes, 0.4% and 6 VHR episodes since 03/18/17. Longest MS episode 08/20/17 for approx 3 hrs 41 mins, last VHR episode 09/08/17 for approx 4 secs. See attached markers/e-grams. AV dissociated with ventricular rate 200 bpm. MS episode markers show what appears to be SVT vs ST with 1:1 conduction. Left pectoral pocket/incision w/o s/s of infection or erosion. Presenting rhythm shows Sinus Tachycardia @106 bpm. CULTURE MANAGER=0.6%. Battery longevity approx 13.5 yrs. Lead impedances, sensing and pace/sense thresholds remain stable. No parameter changes made. Counters cleared. Next f/u appt scheduled for in 6 mos. Device Device Date Interviewed: 09/16/17 Follow-up Location: in office Interview Reason: routine follow up Business Analytics Director: [employer] Name: Junie L Model: [id number] Serial #: [id number] Implant Date: 02/02/16 Year(s): 1 Implant Physician: IGNACIA Patient Characteristics Atrial Indication: Paroxysmal atrial fibrillation AV/Node Indication: Complete heart block (intermittent) Underlying rhythm: Sinus rhythm Pacemaker Dependent: No Device Characteristics Device: Dual Chamber Type: Pacemaker Remote Follow-Up: No Device Physical Exam Yes Incision well healed Leads Lead #1 Business Analytics Director Lead 1: Medtronic Model Lead 1: 5076 Serial# Lead 1: [id number] Date Implanted Lead 1: 02/02/16 Position Lead 1: RA Lead #2 Business Analytics Director Lead 2: Medtronic Model Lead 2: 5076 Serial# Lead 2: [id number] Date Implanted Lead 2: 02/02/16 Position Lead 2: RV Ash Settings Ash Settings Pacemaker Mode AAIR+ Output/Sensing V/PW (ms) adaptive 1.5//0.4 adaptive 2.0/0.4 Sensitivity RA RV LV Comments: Billing Codes PM Device Codes: PM Dev Prog Eval, Dual Assessment AND Plan Problems 1. Status post placement of cardiac pacemaker Z95.0 Permanent pacemaker placement 02/02/16 @ [facility] 2. Paroxysmal atrial fibrillation I48.0 3. Atherosclerotic heart disease of [place] coronary artery without angina pectoris I25.10 4. Congestive heart failure, unspecified I50.9 09/16/17 1953 <Electronically signed by Gilma Phelps > Date Gilma Phelps 09/17/17 0823<Electronically signed by Abhishek Ayoub MD> Benjy Signature: Date (if applicable) Abhishek Ayoub MD CC: EMERGENCY DEPARTMENT Observed: 09/03/2017 Status: F Source: [place] SUMMARY 12:59 AM [facility] Medical Records Department [address] [place] [address] Emergency Department Summary 09/02/17 1726 MR#: [id number] Acct: [id number] Name: MIKALA WILSON Rep #: [id number] : 1940 76 From: Haile Quiles MD PCP: Lei Funes DO Status: DEP ER - ER Visit Summary Date of Service: 09/02/17 Chief Complaint: Fall History of Present Illness: The patient is a [address] Funes. He reports that he was laying down to put a call in on a bird feeder and lost his balance and fell forward. He tried to catch himself. He did hit his head. No loss of consciousness. No pain. He is right-hand dominant. He reports his left wrist pain that is 10 out of 10 with movement 8 out of 10 at rest. He denies any paresthesias. Is unsure when his last tetanus was. Physical Examination: Vitals: Stable. Afebrile. Head: Her centimeter hematoma to the left side of his forehead with a central abrasion. There is no laceration. Neck: No vertebral tenderness. Full ROM without difficulty. Cleared by NEXUS criteria. Back: No vertebral tenderness. General: A AND O x 3. NAD. Cardiovascular exam: Regular rate and rhythm, no murmur, rub or gallop. Respiratory exam: Chest nontender. No crepitus. Clear to auscultation bilaterally. No wheezes or stridor. Abdominal exam: Soft, nontender, nondistended, normal bowel sounds. No pain in RUQ or LUQ specifically. No peritoneal signs. Extremity: Moderate tenderness palpation of the distal left radius. There is an obvious deformity. He is neurovascular intact distally.. Test Results: CT brain shows no acute disease. Does show a partially calcified mass in the right cerebellarpontine angle which is likely meningioma. Left wrist x-ray shows an impacted distal radius fracture with intra-articular extension. Emergency Department Course and Treatment: Patient was treated with oxycodone p.o. He had his tetanus updated. He was placed in an AP Ortho-Glass splint. Treatment Plan: Patient be discharged instructions from Dr. Ramirez in 1 week for another exam. Return to the emergency department for any worsening symptoms. Disposition: To home in improved and stable condition. Impression: 1. Fall. 2. Left distal radius fracture. 3. Left forearm AP splint, fabricated. This note was generated with [employer] Elements dictation software. It may contain incorrect words, spelling, and punctuation that were not noted in review of the chart prior to signing ED Disposition - Plan for ED Patient: Disposition: Home or Assisted Living Chief Complaint: Fall Instructions: ED Fx Colles Wrist No Redu Requ Prescriptions: Oxycodone HCl/Acetaminophen [Percocet 5/325] 1 tablet PO Q6H PRN PRN 5 Days #20 tablet PRN Reason: Pain Docusate Sodium [Colace] 100 mg PO DAILY #20 capsule Referrals: Leonard Ramirez MD [STAFF PHYSICIAN] - 1 Week What to do if you have Problems For any increased pain, shortness of breath, bleeding, nausea or vomiting, chest pain, or any unexpected problems, contact your Primary Care Provider. Call [facility] ([phone]) or report to the closest Emergency Room. Call 911 if necessary. 09/03/17 0059 <Electronically signed by Haile Quiles MD> Date Haile Quiles MD Cosigner Signature (If Indicated): Date CC: Lei Funes DO WRIST MIN 3 VIEWS Observed: 09/02/2017 Status: F Source: [place] 4:32 PM [facility] Imaging Services [address] [place] [address] Wrist min 3 Views MR#: [id number] Acct: [id number] Name: MIKALA WILSON Rep #: [id number] : 1940 M 76 From: Leonard Harmon MD PCP: Lei Funes DO Status: PRE ER Study: Wrist min 3 Views Date of Exam: 09/02/17 Exam# [id number] Ordering Dr: Jesse Foy DO STUDY: X-RAY - LEFT WRIST REASON FOR EXAM: Male, 76 years old. Fall TECHNIQUE: 3 view(s) of the wrist were obtained. COMPARISON: None. FINDINGS: There is an impacted fracture of the distal radius. There is a lucency in the ulnar styloid which likely represents a nondisplaced fracture. There are moderate to severe degenerative changes in the carpal bones. There are no radiodense foreign bodies. RAD/Wrist min 3 Views IMPRESSION: Impacted fracture of the distal radius. Lucency in the ulnar styloid which likely represents a nondisplaced fracture. Degenerative change. Electronically Signed: Leonard Harmon, at 16:59 EDT Tel , Service support , CC: Jesse Foy DO; Lei Funes DO Geosciences Professor: Signed BRAIN/HEAD WITHOUT Observed: 09/02/2017 Status: F Source: [place] CONTRAST 4:32 PM [facility] Imaging Services [address] [place] [address] Brain/Head without Contrast MR#: [id number] Acct: [id number] Name: MIKALA WILSON Rep #: [id number] : 1940 76 From: Leonard Harmon MD PCP: Lei Funes DO Status: PRE ER Study: Brain/Head without Contrast Date of Exam: 09/02/17 Exam# [id number] Ordering Dr: Jesse Foy DO STUDY: CT BRAIN WITHOUT CONTRAST REASON FOR EXAM: Male, 76 years old. Trauma. RADIATION DOSAGE (If Supplied By Facility): CTDIvol = ( 60.81 ) mGy, DLP = ( 1135.50 ) mGycm TECHNIQUE: Transaxial CT imaging of the brain was performed without administration of intravenous contrast material. Individualized dose optimization techniques were used for this CT. COMPARISON: 12/12/2016 FINDINGS: There is a stable partially calcified mass in the right cerebellopontine angle which likely represents a meningioma. There is no acute bleed or infarct. There are stable chronic ischemic and atrophic changes. The ventricles are normal in configuration. There is no hydrocephalus. The visualized paranasal sinuses are clear. The mastoid air cells are well aerated. There is no skull fracture. There is soft tissue swelling overlying the forehead. CT/Brain/Head without Contrast IMPRESSION: Stable chronic ischemic and atrophic changes. No acute intracranial abnormality. Stable partially calcified mass in the right cerebellopontine angle which likely represents a meningioma. Soft tissue swelling overlying the forehead. Electronically Signed: Leonard Faustino, at 17:05 EDT Tel , Service support , CC: Jesse Foy DO; Lei Funes DO Geosciences Professor: Signed CARDIOLOGY VISIT Observed: 07/29/2017 Status: F Source: [place] REPORT 12:04 PM [facility] [address] [place] [address] OFFICE VISIT Date of Service: 07/24/17 MR#: [id number] Acct: [id number] Name: MIKALA WILSON Rep #: [id number] : 1940 Provider: Abhishek Ayoub MD Age/Sex: 76/M [place] [facility] Status: Signed HPI HPI Chief Complaint: Follow-up visit. Details: MIKALA WILSON, is a 76 M who presents to the office today for a follow-up visit. He is a gentleman with a history of atrial fibrillation and aortic valve disease who underwent right and left heart catheterization November 2015 demonstrating borderline left ventricular systolic function no significant obstructive coronary disease but severe aortic stenosis who underwent aortic valve replacement with a 23 mm Jay Aragon pericardial valve. He also had mitral valve repair and atrial fibrillation was treated with a maze procedure. 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 Since then he has done well denying any chest pain or shortness breath or paroxysmal nocturnal dyspnea or pedal edema he has not had any neck arm or jaw discomfort suggest angina no dizziness or diaphoresis no near syncope or syncope. He tells me that he has been having some leg cramps when he walks. Otherwise he has had no cardiac problems. His physical exam today demonstrates clear lung hoang regular rate and rhythm and no pedal edema. 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 Required: No Accompanied by: None Is patient in pain?: No Allergies No Known Allergies Allergy (Verified 07/24/17 08:59) Medications Glimepiride [Amaryl] 4 mg PO DAILY@0800 #30 tab 02/25/17 [Rx Confirmed 07/24/17] Metformin HCl [Glucophage] 500 mg PO BIDCM #30 tab 02/25/17 [Rx Confirmed 07/24/17] Pioglitazone [Actos] 30 mg PO DAILY@0800 #30 tab 02/25/17 [Rx Confirmed 07/24/17] aspirin 81 mg tablet,delayed release 81 mg PO QDAY 07/24/17 [History Confirmed 07/24/17] sertraline 100 mg tablet 100 mg PO QDAY 30 Days #30 tab 07/24/17 [History Confirmed 07/24/17] Ejection fraction %: 55 to 59 (55% per echo 03/04/2016 at [facility] Medical History CLEMENT (obstructive sleep apnea) (Chronic) Congestive heart failure, unspecified (Chronic) Other secondary pulmonary hypertension (Chronic) Nonrheumatic mitral valve regurgitation (Chronic) Nonrheumatic aortic (valve) stenosis (Chronic) Nonrheumatic aortic (valve) insufficiency (Chronic) Carotid artery stenosis (Chronic) Chronic atrial fibrillation (Chronic) Atherosclerotic heart disease of [place] coronary artery without angina pectoris (Chronic) Hyperlipidemia (Chronic) 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) DM2 (diabetes mellitus, type 2) (Chronic) Hypothyroidism (Chronic) Surgical History History of maze procedure (Chronic) Status post placement of cardiac pacemaker (Chronic) Status post mitral valve repair (Chronic) H/O left knee surgery (Chronic) Hx gamma knife procedure (Chronic) Family History Mother Myocardial infarction CAD (coronary artery disease) Hypertension Sister Hypertension CVA (cerebral vascular accident) Son Diabetes Social History Smoking Status: Former smoker alcohol intake: former substance use type: does not use caffeine: Yes Type: coffee what type of physical activity do you participate in: none seatbelt use: always do you feel safe at home: Yes ROS Const Const: Negative for body ache, fever(s), chills, night sweats, daytime sleepiness, difficulty sleeping, weight gain, weight loss, increased appetite, poor appetite, anorexia, other, frequent falls, headache(s), weakness, fatigue or excessive sweating Eyes Eyes: Negative for blind spots, loss of peripheral vision, transient loss of vision, change in vision, floaters, tunnel vision, other, blurry vision or double vision ENT ENT: Negative for hearing loss, tinnitus, Nosebleed/epistaxis, post nasal drip, bleeding gums, hoarseness, neck pain, dry mouth, other, dizziness, headache(s), tongue swelling or lip swelling Cardio Chest Pain: No Palpitations: No Edema: None Muscle aches with walking: Left Resp Respiratory: Negative for SOB with activity, SOB at rest, SOB orthopnea\SOB lying down, Cough, Coughing up blood/hemoptysis, chest congestion, pain on inspiration, snoring, stridor, wheezing, crackles, paroxysmal nocturnal dyspnea or other GI GI: Negative nausea, vomiting, heartburn, constipation, belching, bloating, cramping, vomiting blood/hematemesis, bright, red blood in stools, black,tarry stools, loose stools, Difficulty Swallowing or other : Negative for hematuria, frequent nighttime urination/ nocturia, erectile dysfunction or abnormal vaginal bleeding Skin Skin: Negative redness, non-healing lesions, unusual bruising, skin ulcer, wounds, jaundice, other or rash Neuro Neuro: Negative for dizziness, lightheadedness, near syncope, syncope, orthostatic symptoms, frequent falls, headache(s), weakness, confusion, memory loss, restless legs, blurry vision, double vision, vertigo, seizures, lack of coordination or other Jonh Hematologic/Lymphatic: Negative for easy bleeding, easy bruising, enlarged lymph nodes or other Endo Endo: Negative for fatigue, cold intolerance, heat intolerance, excessive sweating, flushing, increased thirst/drinking, increased hunger, hair loss, hair growth or other Psych Psych: Negative for anxiety, depression, thoughts of harming anyone, thoughts of harming yourself, visual hallucinations, panic attacks or audible hallucinations Allergy Allergy/Immunology: Negative for throat swelling, Negative for tongue swelling, Negative for hives, Negative for rash, Negative for lip swelling Cardiology Exam Const Appearance: cooperative, healthy appearing, well developed, well groomed and no acute distress Nutritional Appearance: well nourished and average body habitus Orientation: alert, awake and oriented x3 Head Head: normal to inspection, normocephalic and atraumatic Ears: hearing grossly normal bilaterally and external ears normal Nose: external nose normal, nasal mucous membranes and turbinates normal, nares normal, septum normal, no nasal discharge Face and Sinus: face symmetric Mouth: oral mucosae normal, tongue normal, oropharynx normal and moist mucous membranes Teeth and gingiva: dentition normal Throat: posterior oropharynx normal, tonsils normal and uvula midline Eyes General: appearance normal, both eyes and all related structures Eyelids: eyelids normal Conjunctivae: conjunctivae normal Pupils: PERRL, normal by confrontation and accommodation normal EOM: EOM intact bilaterally Neck Neck: normal visual inspection, trachea midline and no JVD JVD: +5 Carotids: normal carotid upstroke and bounding pulses Chest Chest inspection: normal inspection of the chest, symmetric chest movement and normal respiratory effort Auscultation: Bilateral: Clear to Auscultation Cardio Palpation: normal PMI Rate: regular rate Rhythm: regular rhythm Heart sounds: S1 normal, S2 normal and normal, physiologic split S2; negative rub, gallop or murmur GI GI: normal to inspection, soft, no hepatosplenomegaly and bowel sounds present Neuro General: alert, awake, oriented x3, no focal sensory deficit, gait normal and moves all extremities Skin Skin: no rashes or lesions noted Extremities Pulses: Normal: Right Femoral Pulse, Left Femoral Pulse, Right Dorsalis Pedis Pulse, Left Dorsalis Pedis Pulse, Right Posterior Tibial Pulse, Left Posterior Tibial Pulse, Right Radial Pulse, Left Radial Pulse Lower Extremity Edema: None: Bilateral Musculoskel Musculoskeletal: No joint tenderness Psych Psychological: normal affect Assessment AND Plan 1. Status post aortic valve replacement with bioprosthetic valve Z95.3 Aortic Valve Replacement w/ 23-mm Jay-Aragon pericardial valve Plan He continues to do well status post aortic valve replacement. We will continue to follow him with antibiotic prophylaxis but at this time he does not appear that he needs any other therapy. His last echocardiogram had demonstrated preserved ejection fraction with a stable bioprosthetic aortic valve. 2. Status post mitral valve repair Z98.890 mitral valve repair and MAZE procedure 01/24/[address] Tolliver @ [facility] Plan He is status post mitral valve repair. His last echocardiogram had demonstrated a mean transmitral valve gradient of 9 mmHg. There was moderate mitral valve stenosis noted. At his next visit this will be repeated. 3. Status post placement of cardiac pacemaker Z95.0 Permanent pacemaker placement 02/02/16 @ [facility] Plan He is status post permanent pacemaker implantation. He continues to follow-up here in our pacemaker clinic. His last interrogation demonstrated adequate lead and battery impedances. We will continue to monitor him for any mode switches. 4. Paroxysmal atrial fibrillation I48.0 Plan He appears to be maintaining sinus rhythm now status post maze procedure. We will continue to follow him closely and if there are any episodes of paroxysmal atrial fibrillation he may need to go back on anticoagulation. You however do remember that he had had a GI bleed and they had decided not to proceed with any Coumadin therapy. 5. Hyperlipidemia, unspecified hyperlipidemia type E78.5 Plan His most recent lipid profile demonstrated total cholesterol 164 HDL 47 LDL of 95. He will continue with aggressive risk factor modification. Thank you for allowing me to participate in the care of your patient. Please don't hesitate to call if any issues arise Plan Detail Other Medications Discontinued: Coding Level of Care Code Off vis,est,level 4 Diagnoses Status post aortic valve replacement with bioprosthetic valve Z95.3 Status post mitral valve repair Z98.890 Status post placement of cardiac pacemaker Z95.0 Paroxysmal atrial fibrillation I48.0 Atrial fibrillation type: paroxysmal Hyperlipidemia, unspecified hyperlipidemia type E78.5 Hyperlipidemia type: unspecified Coding Level of Care Code Off vis,est,level 4 Diagnoses Status post aortic valve replacement with bioprosthetic valve Z95.3 Status post mitral valve repair Z98.890 Status post placement of cardiac pacemaker Z95.0 Paroxysmal atrial fibrillation I48.0 Atrial fibrillation type: paroxysmal Hyperlipidemia, unspecified hyperlipidemia type E78.5 Hyperlipidemia type: unspecified 07/29/17 1204 <Electronically signed by Abhishek Ayoub MD> Date Abhishek Ayoub MD Cosigner Signature: Date (if applicable) CC: Lei Funes DO LOWER EXT ARTERIAL Observed: 07/19/2017 Status: F Source: [facility] 6:49 PM [facility] Cardiovascular Services [address] [place] [address] 07/19/17 1845 MR#: [id number] Acct: [id number] Name: MIKALA WILSON Rep #: [id number] : 1940 76 From: Tyler Frausto MD Attending Dr: Lei Funes DO Status: REG CLI Ordering Dr: Date: 07/19/17 Location: [facility] Sex: M C Admitted: Arterial Study - Arterial Study Arterial Study: This is a 76-year-old male with a history of diabetes mellitus and coronary artery disease. The patient is suspected of having peripheral arterial occlusive disease, and is brought to the noninvasive vascular laboratory at this time for the purpose of bilateral noninvasive lower extremity arterial assessment. Doppler signal assessment was used to evaluate the pulses at ankle level bilaterally. On the right, the posterior tibial and dorsalis pedis pulses were triphasic. On the left, the posterior tibial and dorsalis pedis pulses were biphasic. Segmental limb pressures were obtained bilaterally. The right low thigh pressure and the right calf pressure were not obtained. The right ankle pressure, as determined by posterior tibial and dorsalis pedis pulses, could not be obtained due to the noncompressibility of the vasculature. The right digital pressure was measured at 126 mmHg. The left low thigh pressure was measured at 210 mmHg. The left calf pressure was measured at 205 mmHg. The left ankle pressure, as determined by posterior tibial pulse, was measured at 101 mmHg. The left ankle pressure, as determined by dorsalis pedis pulse, was measured at 116 mmHg. The left digital pressure was measured at 75 mmHg. Pulse-volume recordings were obtained bilaterally and segmentally. Waveform amplitudes appeared to be satisfactory at all levels bilaterally, but for the left ankle and left digital levels, which were diminished. The resting right ankle-brachial index could not be determined due to the noncompressibility of the vasculature. The resting left ankle-brachial index was calculated to be 0.77. Digital-brachial indices were calculated bilaterally. The right digital-brachial index was calculated to be 0.84. The left digital-brachial index was calculated to be 0.50. Impression: Based upon the findings of this resting noninvasive lower extremity arterial study, there is evidence of arterial calcification at ankle level in the right lower extremity. This precludes determination of an ankle-brachial index in the right lower extremity. However, triphasic waveforms are noted at ankle level in the right lower extremity, and the right digital-brachial index is normal. These findings are suggestive of relatively normal arterial flow in the right lower extremity. In the left lower extremity, biphasic waveforms were noted at ankle level, and the resting left ankle-brachial index and the left digital-brachial index are moderately diminished. 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 Clinical correlation is advised. 07/19/171848 <Electronically signed by Tyler Frausto MD> Date Tyler Frausto MD CC: Lei Funes DO Date Dictated: 07/19/171844 Date Transcribed: 07/19/171844 Geosciences Professor: EVELINA Lawrence LIVER PROFILE Collected: 04/22/2017 Status: F Source: [place] 8:51 AM [facility] Order Comment: Order Date: 01/20/17 Order Info: [id number] - *Hepatic Function Panel Order Info: [id number] - *Lipid Profile CC PCP Comments: 12 hours fasting, may have water. TYPE CODE TESTS RESULT OUT OF RANGE REFERENCE UNITS LAB L501.1500 6.4-8.2 g/dL Normal T PROT 7.7 LAB L501.1800 3.4-5.0 g/dL Normal ALB 4.3 Result Comment: Please note revised Albumin AND Globulin reference range effective 2017. LAB L501.1950 2.2-4.2 g/dL Normal GLOB 3.4 LAB L501.4100 15-37 U/L Normal AST 17 LAB L501.4305 45-117 U/L Normal ALK P 98 LAB L501.4405 12-78 U/L Normal ALT 32 LAB L501.4600 0.20-1.00 mg/dL Normal T BILI 0.50 LAB L501.4700 0.00-0.30 mg/dL Normal D BILI 0.15 Performed By: #### L500.3400 #### [facility] [address] [place], [place], [address] LIPID PROFILE Collected: 04/22/2017 Status: F Source: [place] 8:51 AM [facility] REPOSITORY Order Comment: Order Date: 01/20/17 Order Info: 0788-1 - *Hepatic Function Panel Order Info: 09808-3 - *Lipid Profile CC PCP Comments: 12 hours fasting, may have water. TYPE CODE TESTS RESULT OUT OF RANGE REFERENCE UNITS LAB L501.4900 200 mg/dL Normal CHOL 164 Result Comment: <200 mg/dL Desirable 200-240 mg/dL Borderline >240 mg/dL High Risk LAB L501.5000 mg/dL Normal TRIG 111 Result Comment: The drugs N-Acetylcysteine and Metamizole may falsely depress this assay. Serum Triglycerides Reference Interval Normal <150 mg/dL Borderline high 150 - 199 mg/dL High 200 - 499 mg/dL Very High > or = 500 mg/dL LAB L501.6400 mg/dL Normal HDL 47 Result Comment: The drugs N-Acetylcysteine and Metamizole may falsely depress this assay. Reference Range HDL <40 mg/dL Low HDL Cholesterol HDL >or= 60 mg/dL High HDL Cholesterol LAB L501.6500 0-130 mg/dL Normal LDL 95 LAB L501.6600 5-40 mg/dL Normal VLDL 22 Performed By: #### L500.4100 #### [facility] [address], [address] ALLERGIES ALLERGIES DATE TYPE / CODE NAME / CODE REACTION SEVERITY SOURCE 03/05/2018 Drug No Known Unknown [facility] Allergy/4160 Allergies/F00 Hospital [address]74(SNOMED 5024852(RXNOR Repository CT) M) ENCOUNTERS ENCOUNTERS ADMIT/DISCHARGE ACCOUNT ADMITTING ENCOUNTER LOCATION SOURCE NUMBER CLASS 03/23/2018 [id number] Ambulatory [place] 4 [facility] ing:MTLAB Repository 03/19/2018 [id number] Ambulatory BMSBuilding:B [place] 6 [facility] Repository 03/09/2018 [id number] Ambulatory [place] 0 [facility] ing:MTLAB Repository 03/05/2018/ [id number] Ambulatory BMSBuilding:B [place] 8 6 [facility] Repository 02/23/2018 [id number] Ambulatory [place] 4 [facility] ing:MTLAB Repository 02/20/2018 [id number] Ambulatory [place] 7 [facility] ing:MTRAD Repository 02/16/2018 [id number] Ambulatory [place] 9 [facility] ing:MTLAB Repository 02/04/2018 [id number] Ambulatory [place] 6 [facility] ing:PSN Repository 02/04/2018 [id number] Ambulatory BMSBuilding:W [place] 9 [facility] Repository 02/02/2018 [id number] Ambulatory [place] 6 [facility] ing:CT Repository 01/29/2018 [id number] Ambulatory [place] 7 [facility] ing:MTLAB Repository 01/22/2018 [id number] Ambulatory [place] 7 [facility] ing:LAB Repository 01/22/2018/ [id number] Ambulatory BMSBuilding:B [place] 8 4 [facility] Repository 01/19/2018 [id number] Ambulatory [place] 0 [facility] ing:OLS.[facility] Repository C 01/12/2018 [id number] Ambulatory [place] 5 [facility] ing:OLS.[facility] Repository C 01/07/2018/ [id number] Joseph, Inpatient [place] 8 3 [place] Encounter [facility] ing:KW2Lcah: Repository OV694Gek: 1 01/07/2018 [id number] Joseph, Ambulatory BMSBuilding:B [place] 7 [place].[facility] Repository 01/07/2018 [id number] [facility], Ambulatory BMSBuilding:B [place] 2 [place] [facility] Repository 01/07/2018 [id number] [facility], Ambulatory BMSBuilding:B [place] 0 [place] Repository 01/07/2018 [id number] [facility], Ambulatory BMSBuilding:B [place] 2 [place] [facility] Repository 01/05/2018 [id number] Ambulatory BMSBuilding:W [place] 4 [facility] Repository 01/05/2018 [id number] Ambulatory [place] 3 [facility] ing:PSN Repository 01/01/2018 [id number] Ambulatory [place] 3 [facility] ing:MTLAB Repository 12/30/2017 [id number] Ambulatory [place] 3 [facility] ing:CVS Repository 12/24/2017 [id number] Ambulatory [place] 2 [facility] ing:MTLAB Repository 12/22/2017/ [id number] Ambulatory BMSBuilding:B [place] 8 1 [facility] Repository 12/17/2017 [id number] Ambulatory [place] 6 [facility] ing:LAB Repository 12/17/2017/ [id number] Ambulatory BMSBuilding:B [place] 8 3 [facility] Repository 12/07/2017/ [id number] [place], [place] Inpatient [place] 8 8 Encounter [facility] ing:PCURoom: Repository YAM164Dyk: 1 12/07/2017 [id number] [place], [place] Ambulatory BMSBuilding:B [place] 1 [facility] Repository 12/07/2017 [id number] [place] Ambulatory BMSBuilding:B [place] 1 [facility] Repository 12/07/2017 [id number] Ambulatory BMSBuilding:B [place] 2 [facility] Repository 12/07/2017 [id number] Ambulatory BMSBuilding:B [place] 9 [facility] Repository 12/07/2017/ [id number] Ambulatory BMSBuilding:W [place] 8 5 [facility] Repository 12/07/2017/ [id number] Ambulatory BMSBuilding:W [place] 8 9 [facility] Repository 12/07/2017/ [id number] Ambulatory BMSBuilding:W [place] 8 1 [facility] Repository 12/07/2017 [id number] Ambulatory BMSBuilding:B [place] 0 [facility] Repository 10/27/2017 [id number] Ambulatory [place] 8 [facility] ing:MTLAB Repository 09/29/2017 [id number] Ambulatory [place] 6 [facility] ing:LAB.FUTUR Repository E 09/16/2017/ [id number] Ambulatory BMSBuilding:B [place] 8 6 [facility] Repository 09/02/2017/ [id number] Emergency [place] 8 9 [facility] ing:ED Repository 07/24/2017/ [id number] Ambulatory BMSBuilding:B [place] 8 6 [facility] Repository 07/14/2017 [id number] Ambulatory [place] 1 [facility] ing:CVS Repository 04/22/2017 [id number] Ambulatory [place] 2 [facility] ing:MTLAB Repository PAYERS PAYERS ENCOUNTER GUARANTOR PAYER SUBSCRIBER SOURCE 03/23/2018 MIKALA WILSON2244 Primary MIKALA LEMUS Insurance:MEDICARE SIGLERDOB: [place] PART [place] [id number] Hospital [address]Git: (330) Number: Repository [phone] (HP) [id number] Date:2018-03-23 03/23/2018 Secondary MIKALA H [place] Insurance:PHYSICIAN SIGLERDOB: Community MUTUAL INS COPolicy [id number] Hospital Number: Repository [id number] Date:5629-24-42HD [address] [address]EQ: 03/23/2018 Tertiary NOT GIVENUNK [place] Insurance:SELF PAY [facility] Hospital Number: Effective Repository Date:2018-03-23 03/19/2018 MIKALA SIGLERDUPLICATE Primary MIKALA SIGLERDOB: [place] PATIENT RECORDTel: Insurance:MEDICARE [id number] Community () PART A [facility] Hospital Number: Repository [id number] Date:2018-03-19 03/19/2018 Secondary MIKALA SIGLERDOB: [place] Insurance:PHYSICIAN [id number] [facility] Hospital Number: Repository [id number] Date:2236-31-79MZ [address] [address]OK: 03/19/2018 Tertiary NOT GIVENUNK [place] Insurance:SELF PAY [facility] Hospital Number: Effective Repository Date:2018-03-19 03/09/2018 MIKALA Kaiser [id number] Primary MIKAAL [place] Insurance:MEDICARE SIGLERDOB: [place] PART A olicy [id number] Hospital [address]Xsj: (330) Number: Repository [phone] () [id number] Date:2018-03-09 03/09/2018 Secondary MIKALA H [place] Insurance:PHYSICIAN SIGLERDOB: [facility] MUTUAL INS COPolicy [id number] Hospital Number: Repository [id number] Date:6970-78-08GC[address] [address]ZN: 03/09/2018 Tertiary NOT GIVENUNK [place] Insurance:SELF PAY [facility] Hospital Number: Effective Repository Date:2018-03-09 03/05/2018 MIKALA H [id number] Primary MIKALA H [place] Insurance:MEDICARE SIGLERDOB: [place] PART [place] olicy [id number] Hospital [address]Cos: (330) Number: Repository [phone] () [id number] Date:2018-01-30 03/05/2018 Secondary MIAKLA H [place] Insurance:PHYSICIAN SIGLERDOB: Community MUTUAL INS COPolicy [id number] Hospital Number: Repository [id number] Date:9112-79-27JI [address] [address]DK: 03/05/2018 Tertiary NOT GIVENUNK [place] Insurance:SELF PAY [facility] Hospital Number: Effective Repository Date:2018-01-30 02/23/2018 MIKALA H [id number] Primary MIKALA H [place] Insurance:MEDICARE SIGLERDOB: [place] PART [place] olicy [id number] Hospital 423[address]Wey: (330) Number: Repository [phone] () [id number] Date:2018-02-23 02/23/2018 Secondary MIKALA H [place] Insurance:PHYSICIAN SIGLERDOB: Community MUTUAL INS COPolicy [id number] Hospital Number: Repository [id number] Date:3343-66-52FF [address] [address]XM: 02/23/2018 Tertiary NOT GIVENUNK [place] Insurance:SELF PAY [facility] Hospital Number: Effective Repository Date:2018-02-23 02/20/2018 MIKALA H [id number] Primary MIKALA H [place] Insurance:MEDICARE SIGLERDOB: [place] PART [place] olicy [id number] Hospital [address]Cmj: (330) Number: Repository [phone] () [id number] Date:2018-02-20 02/20/2018 Secondary MIKALA H [place] Insurance:PHYSICIAN SIGLERDOB: Community MUTUAL INS COPolicy [id number] Hospital Number: Repository [id number] Date:3269-84-25SQ [address] [address]JD: 02/20/2018 Tertiary NOT GIVENUNK [place] Insurance:SELF PAY [facility] Hospital Number: Effective Repository Date:2018-02-20 02/16/2018 MIKALA [id number] Primary MIKALACirilo [place] Insurance:MEDICARE [place]DOB[place] [id number] Hospital [address]Czq: (330) Number: Repository [phone] () [id number] Date:2018-02-16 02/16/2018 Secondary MIKALA Job [place] Insurance:PHYSICIAN SIGLERDOB: Community MUTUAL INS COPolicy [id number] Hospital Number: Repository [id number] Date:2981-66-89IN [address] [address]CT: 02/16/2018 Tertiary NOT GIVENUNK [place] Insurance:SELF PAY [facility] Hospital Number: Effective Repository Date:2018-02-16 02/04/2018 MIKALA MEIER4 Primary MIKALA [place] [place] Insurance:MEDICARE SIGLERDOB: [place] [id number] Hospital [address]Vpz: (330) Number: Repository [phone] () [id number] Date:2017-12-22 02/04/2018 Secondary MIKALA Job [place] Insurance:PHYSICIAN SIGLERDOB: Community MUTUAL INS COPolicy [id number] Hospital Number: Repository [id number] Date:7740-65-46SL [address] [address]FR: 02/04/2018 Tertiary NOT GIVENUNK [place] Insurance:SELF PAY [facility] Hospital Number: Effective Repository Date:2017-12-22 02/04/2018 MIKALA MEIER4 Primary MIKALACirilo [place] [place] Insurance:MEDICARE SIGLERDOB: [place] [id number] Hospital [address]Ylj: (330) Number: Repository [phone] () [id number] Date:2017-12-22 02/04/2018 Secondary MIKALA H [place] Insurance:PHYSICIAN SIGLERDOB: Community MUTUAL INS COPolicy [id number] Hospital Number: Repository [id number] Date:6564-01-58QM [address] [address]YR: 02/04/2018 Tertiary NOT GIVENUNK [place] Insurance:SELF PAY [facility] Hospital Number: Effective Repository Date:2018-02-04 02/02/2018 MIKALA [id number] Primary MIKALA Job [place] Insurance:MEDICARE SIGLERDOB: [place] olicy [id number] Hospital [address]Cbr: (330) Number: Repository [phone] () [id number] Date:2017-12-23 02/02/2018 Secondary MIKALA H [place] Insurance:PHYSICIAN SIGLERDOB: Community MUTUAL INS COPolicy [id number] Hospital Number: Repository [id number] Date:0557-68-21ZR [address] [address]UF: 02/02/2018 Tertiary NOT GIVENUNK [place] Insurance:SELF PAY [facility] Hospital Number: Effective Repository Date:2017-12-23 01/29/2018 MIKALA Job [id number] Primary MIKALA Job [place] Insurance:MEDICARE SIGLERDOB: [place] o[place]y [id number] Hospital [address]Hcm: (330) Number: Repository [phone] () [id number] Date:2018-01-29 01/29/2018 Secondary MIKALA H [place] Insurance:PHYSICIAN SIGLERDOB: Community MUTUAL INS COPolicy [id number] Hospital Number: Repository [id number] Date:3618-09-66WU [address] [address]IV: 01/29/2018 Tertiary NOT GIVENUNK [place] Insurance:SELF PAY [facility] Hospital Number: Effective Repository Date:2018-01-29 01/22/2018 MIKALA H [id number] Primary MIKALA H [place] Insurance:MEDICARE SIGLERDOB: [place] PART A olic [id number] Hospital 418[address]Cym: (330) Number: Repository [phone] () [id number] Date:2018-01-22 01/22/2018 Secondary MIKALA Kaiser [place] Insurance:PHYSICIAN SIGLERDOB: Community MUTUAL INS COPolicy [id number] Hospital Number: Repository [id number] Date:0817-98-23UX[address] [address]YS: 01/22/2018 Tertiary NOT GIVENUNK [place] Insurance:SELF PAY [facility] Number: Effective Repository Date:2018-01-22 01/22/2018 MIKALA [id number] Primary MIKALA Thur[place] [address] [place] Insurance:MEDICARE SIGLERDOB: [place] PART A [facility] [id number] Hospital [address]Hjo: (330) Number: Repository [phone] () [id number] Date:2017-12-17 01/22/2018 Secondary MIKALA [facility] [place] Insurance:PHYSICIAN SIGLERDOB: [facility] MUTUAL INS COPolicy [id number] Hospital Number: Repository [id number] Date:0144-88-29MW [address] [address]ZX: 01/22/2018 Tertiary NOT GIVENUNK [place] Insurance:SELF PAY [facility] Number: Effective Repository Date:2018-01-12 01/19/2018 MIKALA Kaiser [id number] Primary NOT GIVENUNK [place] Insurance:SELF PAY [facility] [address]Vio: (330) Number: Effective Repository [phone] () Date:2018-01-19 01/12/2018 MIKALA [id number] Primary NOT GIVENUNK [place] Insurance:SELF PAY [facility] [address]Sps: (330) Number: Effective Repository [phone] () Date:2018-01-12 01/07/2018 MIKALA GUYLER2244 Primary MIKALA Thur[place] [place] Insurance:MEDICARE SIGLERDOB: [place] olic[place] [id number] Hospital [address]Ucj: (330) Number: Repository [phone] () [id number] Date:2018-01-07 01/07/2018 Secondary MIKALA [facility] [place] Insurance:PHYSICIAN SIGLERDOB: Community MUTUAL INS COPolicy [id number] Hospital Number: Repository [id number] Date:8721-59-51WO [address] [address]LY: 01/07/2018 Tertiary NOT GIVENUNK [place] Insurance:SELF PAY [facility] Hospital Number: Effective Repository Date:2018-01-07 01/07/2018 MIKALA Kaiser [id number] Primary MIKALA [place] [address] [place] Insurance:MEDICARE SIGLERDOB: [place] PART A [facility] [id number] Hospital [address]Yfq: (330) Number: Repository [phone] () [id number] Date:2018-01-07 01/07/2018 Secondary MIKALA H [place] Insurance:PHYSICIAN SIGLERDOB: [facility] MUTUAL INS COPolicy [id number] Hospital Number: Repository [id number] Date:6348-93-66JG [address] [address]WH: 01/07/2018 Tertiary NOT GIVENUNK [place] Insurance:SELF PAY [facility] Hospital Number: Effective Repository Date:2018-01-07 01/07/2018 MIKALA Kaiser [id number] Primary MIKALA [place] [address] [place] Insurance:MEDICARE SIGLERDOB: [place] olic [id number] Hospital [address]Gtm: (330) Number: Repository [phone] () [id number] Date:2018-01-07 01/07/2018 Secondary MIKALA Job [place] Insurance:PHYSICIAN SIGLERDOB: Community MUTUAL INS COPolicy [id number] Hospital Number: Repository [id number] Date:3775-65-12EA [address] [address]BN: 01/07/2018 Tertiary NOT GIVENUNK [place] Insurance:SELF PAY [facility] Number: Effective Repository Date:2018-01-07 01/07/2018 MIKALA GUYLER2244 Primary MIKALACirilo [place] Insurance:MEDICARE SIGLERDOB: [place] A [facility] [id number] Hospital 28[address]Yql: (330) Number: Repository [phone] () [id number] Date:2018-01-07 01/07/2018 Secondary MIKALA Job [place] Insurance:PHYSICIAN SIGLERDOB: Community MUTUAL INS [facility] [id number] Hospital Number: Repository [id number] Date:4285-01-74OS [address] [address]JP: 01/07/2018 Tertiary NOT GIVENUNK [place] Insurance:SELF PAY [facility] Hospital Number: Effective Repository Date:2018-01-07 01/07/2018 MIKALA Kaiser [id number] Primary MIKALA Job [place] Insurance:MEDICARE SIGLERDOB: [place] [facility] [id number] Hospital 244[address]Eeg: (330) Number: Repository [phone] () [id number] Date:2018-01-07 01/07/2018 Secondary MIKALA H [place] Insurance:PHYSICIAN SIGLERDOB: Community [facility] [id number] Hospital Number: Repository [id number] Date:5065-35-28ET [address] [address]GK: 01/07/2018 Tertiary NOT GIVENUNK [place] Insurance:SELF PAY [facility] Hospital Number: Effective Repository Date:2018-01-07 01/05/2018 MIKALA SIGLERDUPLICATE Primary MIKALA SIGLERDOB: [place] PATIENT RECORDTel: Insurance:MEDICARE [id number] Community () PART A [facility] Hospital Number: Repository [id number] Date:2017-12-22 01/05/2018 Secondary MIKALA SIGLERDOB: [place] Insurance:PHYSICIAN [id number] Community MUTUAL INS COPolicy Hospital Number: Repository [id number] Date:9389-12-63DW [address] [address]HM: 01/05/2018 Tertiary NOT GIVENUNK [place] Insurance:SELF PAY [facility] Hospital Number: Effective Repository Date:2018-01-05 01/05/2018 MIKALA GUYLER2244 Primary MIKALA Job [place] Insurance:MEDICARE SIGLERDOB: [place] [id number] Hospital [address]Hsr: (330) Number: Repository [phone] () [id number] Date:2017-12-22 01/05/2018 Secondary MIKALA H [place] Insurance:PHYSICIAN SIGLERDOB: [facility] MUTUAL INS COPolicy [id number] Hospital Number: Repository [id number] Date:3526-88-28VR [address] [address]QB: 01/05/2018 Tertiary NOT GIVENUNK [place] Insurance:SELF PAY [facility] Hospital Number: Effective Repository Date:2017-12-22 01/01/2018 MIKALA GUYLER2244 Primary MIKALA Job [place] Insurance:MEDICARE SIGLERDOB: [place] [id number] Hospital 16[address]Fhc: (330) Number: Repository [phone] () [id number] Date:2018-01-01 01/01/2018 Secondary MIKALA H [place] Insurance:PHYSICIAN SIGLERDOB: Community MUTUAL INS COPolicy [id number] Hospital Number: Repository [id number] Date:7242-21-33YS[address] [address]AX: 01/01/2018 Tertiary NOT GIVENUNK [place] Insurance:SELF PAY [facility] Hospital Number: Effective Repository Date:2018-01-01 12/30/2017 MIKALA H [id number] Primary MIKALA H [place] Insurance:MEDICARE SIGLERDOB: [place] PART [place] olicy [id number] Hospital 364[address]Fau: (330) Number: Repository [phone] () [id number] Date:2017-12-12 12/30/2017 Secondary MIKALA H [place] Insurance:PHYSICIAN SIGLERDOB: Community MUTUAL INS COPolicy [id number] Hospital Number: Repository [id number] Date:3886-21-68QB [address] [address]NI: 12/30/2017 Tertiary NOT GIVENUNK [place] Insurance:SELF PAY [facility] Hospital Number: Effective Repository Date:2017-12-12 12/24/2017 MIKALA Kaiser [id number] Primary MIKALA [place] [place] Insurance:MEDICARE SIGLERDOB: [place] olic [id number] Hospital 248[address]Zyz: (330) Number: Repository [phone] () [id number] Date:2017-12-24 12/24/2017 Secondary MIKALA H [place] Insurance:PHYSICIAN SIGLERDOB: Community MUTUAL INS COPolicy [id number] Hospital Number: Repository [id number] Date:7614-67-61UW[address] [address]WF: 12/24/2017 Tertiary NOT GIVENUNK [place] Insurance:SELF PAY [facility] Hospital Number: Effective Repository Date:2017-12-24 12/22/2017 MIKALA Kaiser [id number] Primary MIKALA Job [place] Insurance:MEDICARE SIGLERDOB: [place] [id number] Hospital [address]Cyt: (330) Number: Repository [phone] () [id number] Date:2017-12-11 12/22/2017 Secondary MIKALA H [place] Insurance:PHYSICIAN SIGLERDOB: Community MUTUAL INS COPolicy [id number] Hospital Number: Repository [id number] Date:7230-96-97TQ [address] [address]ML: 12/22/2017 Tertiary NOT GIVENUNK [place] Insurance:SELF PAY [facility] Hospital Number: Effective Repository Date:2017-12-11 12/17/2017 MIKALA [id number] Primary MIKALA H [place] Insurance:MEDICARE SIGLERDOB: [place] [id number] Hospital [address]Ndf: (330) Number: Repository [phone] () [id number] Date:2017-12-17 12/17/2017 Secondary MIKALA Job [place] Insurance:PHYSICIAN SIGLERDOB: Community MUTUAL INS COPolicy [id number] Hospital Number: Repository [id number] Date:3739-94-47AV [address] [address]CO: 12/17/2017 Tertiary NOT GIVENUNK [place] Insurance:SELF PAY [facility] Hospital Number: Effective Repository Date:2017-12-17 12/17/2017 MIKALA MEIER4 Primary MIKALA [place] Insurance:MEDICARE SIGLERDOB[place] [id number] Hospital [address]Vsm: (330) Number: Repository [phone] () [id number] Date:2017-12-11 12/17/2017 Secondary MIKALA Job [place] Insurance:PHYSICIAN SIGLERDOB: Community MUTUAL INS COPolicy [id number] Hospital Number: Repository [id number] Date:3756-23-29WQ [address] [address]CB: 12/17/2017 Tertiary NOT GIVENUNK [place] Insurance:SELF PAY [facility] Number: Effective Repository Date:2017-12-17 12/07/2017 MIKALA WILSON2244 Primary MIKALA H [place] Insurance:MEDICARE SIGLERDOB: [place] [id number] Hospital 388[address]Iis: (330) Number: Repository [phone] () [id number] Date:2017-12-07 12/07/2017 Secondary MIKALA Job [place] Insurance:PHYSICIAN SIGLERDOB: Community MUTUAL INS COPolicy [id number] Hospital Number: Repository [id number] Date:8795-27-04CN [address] [address]KV: 12/07/2017 Tertiary NOT GIVENUNK [place] Insurance:SELF PAY [facility] Hospital Number: Effective Repository Date:2017-12-07 12/07/2017 MIKALA [id number] Primary MIKALA Job [place] Insurance:MEDICARE SIGLERDOB: [place] [id number] Hospital [address]Scn: (330) Number: Repository [phone] () [id number] Date:2017-12-07 12/07/2017 Secondary MIKALA H [place] Insurance:PHYSICIAN SIGLERDOB: Community MUTUAL INS COPolicy [id number] Hospital Number: Repository [id number] Date:5275-74-95WL [address] [address]QT: 12/07/2017 Tertiary NOT GIVENUNK [place] Insurance:SELF PAY [facility] Number: Effective Repository Date:2017-12-07 12/07/2017 MIKALA [id number] Primary MIKALA Job Thurman ABDIAS RUN Insurance:MEDICARE SIGLERDOB: [place] [id number] [address]Euo: (330) Number: Repository [phone] () [id number] Date:2017-12-07 12/07/2017 Secondary MIKALA H [place] Insurance:PHYSICIAN SIGLERDOB: Community MUTUAL INS COP[employer]icy [id number] Hospital Number: Repository [id number] Date:9564-12-67DS [address] [address]GK: 12/07/2017 Tertiary NOT GIVENUNK [place] Insurance:SELF PAY [facility] Hospital Number: Effective Repository Date:2017-12-07 12/07/2017 MIKALA Job [id number] Primary MIKALA H [place] ABDIAS RUN Insurance:MEDICARE SIGLERDOB: [place] [id number] Hospital [address]Pga: (330) Number: Repository [phone] () [id number] Date:2017-12-07 12/07/2017 Secondary MIKALA Job [place] Insurance:PHYSICIAN SIGLERDOB: Community MUTUAL INS COPolicy [id number] Hospital Number: Repository [id number] Date:3019-54-29LU [address] [address]YR: 12/07/2017 Tertiary NOT GIVENUNK [place] Insurance:SELF PAY [facility] Number: Effective Repository Date:2017-12-07 12/07/2017 MIKALA [id number] Primary MIKALA Thurman ABDIAS RUN Insurance:MEDICARE SIGLERDOB: [place] [id number] Hospital [address]Coy: (330) Number: Repository [phone] () [id number] Date:2017-12-07 12/07/2017 Secondary MIKALA Job [place] Insurance:PHYSICIAN SIGLERDOB: Community M[employer]UAL INS [employer]icy [id number] Hospital Number: Repository [id number] Date:[id number] [address]CC: 12/07/2017 Tertiary NOT GIVENUNK [place] Insurance:SELF PAY [facility] Number: Effective Repository Date:2017-12-07 12/07/2017 MIKALA Kaiser [id number] Primary MIKALA Job Thurman ABDIAS [place] Insurance:MEDICARE SIGLERDOB: [place] [id number] [facility] [address]Dot: (330) Number: Repository [phone] () [id number] Date:2017-12-07 12/07/2017 Secondary MIKALA H [place] Insurance:PHYSICIAN SIGLERDOB: Community MUTUAL INS COP[employer]icy [id number] Hospital Number: Repository [id number] Date:9824-50-68OI[address] [address]VB: 12/07/2017 Tertiary NOT GIVENUNK [place] Insurance:SELF PAY [facility] Number: Effective Repository Date:2017-12-07 12/07/2017 MKIALA [id number] Primary MIKALACirilo Thurman ABDIAS RUN Insurance:MEDICARE SIGLERDOB: Community [facility] [id number] Hospital [address]Lxa: (330) Number: Repository [phone] () [id number] Date:2017-12-07 12/07/2017 Secondary MIKALA Job [place] Insurance:PHYSICIAN SIGLERDOB: Community MUTUAL INS COP[employer]icy [id number] Hospital Number: Repository [id number] Date:[id number] [address]XH: 12/07/2017 Tertiary NOT GIVENUNK [place] Insurance:SELF PAY [facility] Number: Effective Repository Date:2017-12-07 12/07/2017 MIKALA [id number] Primary MIKALA Thurman ABDI[place] RUN Insurance:MEDICARE SIGLERDOB[place] [id number] Hospital [address]Oii: (330) Number: Repository [phone] () [id number] Date:2017-12-07 12/07/2017 Secondary MIKALA Job [place] Insurance:PHYSICIAN SIGLERDOB: Community M[employer]UAL INS [employer]icy [id number] Hospital Number: Repository [id number] Date:[id number] [address]NM: 12/07/2017 Tertiary NOT GIVENUNK [place] Insurance:SELF PAY [facility] Number: Effective Repository Date:2017-12-07 12/07/2017 MIKALA [id number] Primary MIKALA Job [place] A[place]IAS [place] Insurance:MEDICARE SIGLERDOB[place] [id number] Hospital [address]Dcb: (330) Number: Repository [phone] () [id number] Date:2017-12-07 12/07/2017 Secondary MIKALA Job [place] Insurance:PHYSICIAN SIGLERDOB: Community MUTUAL INS COPolicy [id number] Hospital Number: Repository [id number] Date:0902-47-62SS [address] [address]OG: 12/07/2017 Tertiary NOT GIVENUNK [place] Insurance:SELF PAY [facility] Hospital Number: Effective Repository Date:2017-12-07 10/27/2017 MIKALA Kaiser [id number] Primary MIKALA Job [place] A[place] Insurance:MEDICARE SIGLERDOB: [place] [id number] Hospital [address]Bjm: (330) Number: Repository [phone] () [id number] Date:2017-10-27 10/27/2017 Secondary MIKALA H [place] Insurance:PHYSICIAN SIGLERDOB: Community MUTUAL INS COP[employer]icy [id number] Hospital Number: Repository [id number] Date:9779-97-13PB[address] [address]ZU: 10/27/2017 Tertiary NOT GIVENUNK [place] Insurance:SELF PAY [facility] Hospital Number: Effective Repository Date:2017-10-27 09/29/2017 MIKALA SIGBEARDUPLICATE Primary MIKALA SIGLERDOB: [place] PATIENT RECORDTel: Insurance:MEDICARE [id number] Community () PART A [facility] Hospital Number: Repository [id number] Date:2017-09-23 09/29/2017 Secondary MIKALA SIGLERDOB: [place] Insurance:PHYSICIAN [id number] [facility] MUTUAL INS [employer]icy Hospital Number: Repository [id number] Date:7914-60-25FO[address] [address]LX: 09/29/2017 Tertiary NOT GIVENUNK [place] Insurance:SELF PAY [facility] Hospital Number: Effective Repository Date:2017-09-23 09/16/2017 MIKALA H [id number] Primary MIKALA H [place] ABDIAS RUN Insurance:MEDICARE SIGLERDOB: [place] [facility] [id number] Hospital [address]Msk: (330) Number: Repository [phone] () [id number] Date:2017-09-16 09/16/2017 Secondary MIKALA H [place] Insurance:PHYSICIAN SIGLERDOB: Community M[employer]UAL INS [employer]icy [id number] Hospital Number: Repository [id number] Date:0032-75-34ZG[address] [address]AB: 09/16/2017 Tertiary NOT GIVENUNK [place] Insurance:SELF PAY [facility] Hospital Number: Effective Repository Date:2017-09-16 09/02/2017 MIKALA [id number] Primary MIKALA Job [place] ABDIAS RUN Insurance:MEDICARE SIGLERDOB: [place] [id number] Hospital [address]Agh: (330) Number: Repository [phone] () [id number] Date:2017-09-02 09/02/2017 Secondary MIKALA H [place] Insurance:PHYSICIAN SIGLERDOB: Community M[employer]UAL INS COP[employer]icy [id number] Hospital Number: Repository [id number] Date:[id number] [address]WQ: 09/02/2017 Tertiary NOT GIVENUNK [place] Insurance:SELF PAY [facility] Hospital Number: Effective Repository Date:2017-09-02 07/24/2017 MIKALA [id number] Primary MIKALA Job [place] ABDI[place] Insurance:MEDICARE SIGLERDOB: [place] [id number] Hospital [address]Sff: (330) Number: Repository [phone] () [id number] Date:2017-03-16 07/24/2017 Secondary MIKALA H [place] Insurance:PHYSICIAN SIGLERDOB: Community MUTUAL INS COPolicy [id number] Hospital Number: Repository [id number] Date:4085-04-75QV[address] [address]FN: 07/24/2017 Tertiary NOT GIVENUNK [place] Insurance:SELF PAY [facility] Number: Effective Repository Date:2017-07-24 07/14/2017 MIKALA [id number] Primary MIKALA Thurman ABDIAS RUN Insurance:MEDICARE SIGLERDOB: [place] [facility] [id number] Hospital [address]Blo: (330) Number: Repository [phone] () [id number] Date:2017-07-04 07/14/2017 Secondary MIAKLA H [place] Insurance:PHYSICIAN SIGLERDOB: Community MUTUAL INS COPolicy [id number] Hospital Number: Repository [id number] Date:0770-62-47PL [address] [place] [address]ZO: 07/14/2017 Tertiary NOT GIVENUNK [place] Insurance:SELF PAY [facility] Number: Effective Repository Date:2017-07-04 04/22/2017 MIKALA [id number] Primary MIKALA Thurman ABDIAS RUN Insurance:MEDICARE SIGLERDOB: [place] [facility] [id number] Hospital [address]Brs: (330) Number: Repository [phone] () [id number] Date:2017-04-22 04/22/2017 Secondary MIKALA H [place] Insurance:PHYSICIAN SIGLERDOB: Community M[employer]UAL INS COP[employer]icy [id number] Hospital Number: Repository [id number] Date:2019-77-36[address] [place] [address]JB: 04/22/2017 Tertiary NOT GIVENUNK [place] Insurance:SELF PAY [facility] Hospital Number: Effective Repository Date:2017-04-22
== END 2018-03-09 09:00 | disposition home or self-care (01) ==
LOC: MTLAB 08:01
PROVIDERS: Family Provider Family Medicine; PCP Family Medicine; Referring Provider Internal Medicine Cardiovascular Disease; Visit Provider Internal Medicine Cardiovascular Disease
DX: I48.0 Paroxysmal atrial fibrillation (principal); Z79.01 Long term (current) use of anticoagulants
CPT/HCPCS: 36415; 85610

== ENCOUNTER 2018-03-23 09:04 | Outpatient (RCR) | payer MEDICARE, OTHER, SELFPAY ==
[2018-03-05 10:42] VITALS: BMI 28.5
[2018-03-23 10:35] LABS: International Normalized Ratio 2.1; Prothrombin Time (Protime)PT. 23.2 SECONDS (11.7-14.9)
--- OUTSIDE RECORDS SUMMARY | 2018-06-24 20:47 | XMS RPT_ITS ---
:1940 Author Organization [place] Support Name Relationship Address Phone R Unavailable Unavailable Unavailable BENNETT, JESSI Unavailable [address] + [place] [address] BENNETT MOMO Unavailable Unavailable + R Unavailable Unavailable Unavailable BENNETT, JESSI Unavailable [address] + [place] [address] BENNETT MOMO Unavailable Unavailable + R Unavailable Unavailable Unavailable BENNETT, JESSI Unavailable [address] + [place] [address] BENNETT, MOMO Unavailable Unavailable + R Unavailable Unavailable Unavailable BENNETT, JESSI Unavailable [address] + [place] [address] BENNETT, MOMO Unavailable Unavailable + R Unavailable Unavailable Unavailable BENNETT, JESSI Unavailable [address] + [place] [address] BENNETT MOMO Unavailable Unavailable + [place] [address] R Unavailable Unavailable Unavailable BENNETT, JESSI Unavailable [address] + [place] [address] BENNETT, MOMO Unavailable Unavailable + [place] [address] R Unavailable Unavailable Unavailable BENNETT, JESSI Unavailable [address] + [place] [address] BENNETT, MOMO Unavailable Unavailable + [place] [address] R Unavailable Unavailable Unavailable BENNETT, JESSI Unavailable [address] + [place] [address] BENNETT, MOMO Unavailable Unavailable + [place] [address] R Unavailable Unavailable Unavailable BENNETT, JESSI Unavailable [address] + [place] [address] BENNETT, MOMO Unavailable Unavailable + [place] [address] R Unavailable Unavailable Unavailable BENNETT, JESSI Unavailable [address] + [place] [address] BENNETT, MOMO Unavailable Unavailable + [place] [address] R Unavailable Unavailable Unavailable BENNETT, JESSI Unavailable [address] + [place] [address] BENNETT, MOMO Unavailable Unavailable + [place] [address] R Unavailable Unavailable Unavailable BENNETT, JESSI Unavailable [address] + [place] [address] BENNETT, MOMO Unavailable Unavailable + [place] [address] R Unavailable Unavailable Unavailable BENNETT, JESSI Unavailable [address] + [place] [address] BENNETT, MOMO Unavailable Unavailable + [place] [address] R Unavailable Unavailable Unavailable BENNETT, JESSI Unavailable [address] + [place] [address] BENNETT, MOMO Unavailable Unavailable + [place] [address] R Unavailable Unavailable Unavailable Bennett, Jessi Unavailable [address] + [place] [address] Bennett, Momo Unavailable Unavailable + [place] [address] R Unavailable Unavailable Unavailable BENNETT, JESSI Unavailable [address] + [place] [address] BENNETT, MOMO Unavailable Unavailable + [place] [address] R Unavailable Unavailable Unavailable Bennett, Jessi Unavailable [address] + [place] [address] Bennett, Momo Unavailable Unavailable + [place] [address] R Unavailable Unavailable Unavailable BENNETT, JESSI Unavailable [address] + [place] [address] BENNETT, MOMO Unavailable Unavailable + [place] [address] R Unavailable Unavailable Unavailable BENNETT, JESSI Unavailable [address] + [place] [address] BENNETT, MOMO Unavailable Unavailable + [place] [address] R Unavailable Unavailable Unavailable BENNETT, JESSI Unavailable [address] + [place] [address] BENNETT, MOMO Unavailable Unavailable + [place] [address] R Unavailable Unavailable Unavailable BENNETT, JESSI Unavailable [address] + [place] [address] BENNETT, MOMO Unavailable Unavailable + [place] [address] R Unavailable Unavailable Unavailable BENNETT, JESSI Unavailable [address] + [place] [address] BENNETT, MOMO Unavailable Unavailable + [place] [address] R Unavailable Unavailable Unavailable BENNETT, JESSI Unavailable [address] + [place] [address] BENNETT, MOMO Unavailable Unavailable + [place] [address] R Unavailable Unavailable Unavailable BENNETT, JESSI Unavailable [address] + [place] [address] BENNETT, MOMO Unavailable Unavailable + [place] [address] R Unavailable Unavailable Unavailable BENNETT, JESSI Unavailable [address] + [place] [address] BENNETT, MOMO Unavailable Unavailable + [place] [address] R Unavailable Unavailable Unavailable BENNETT, JESSI Unavailable [address] + [place] [address] BENNETT, MOMO Unavailable Unavailable + [place] [address] R Unavailable Unavailable Unavailable BENNETT, JESSI Unavailable [address] + [place] [address] BENNETT, MOMO Unavailable Unavailable + [place] [address] R Unavailable Unavailable Unavailable BENNETT, JESSI Unavailable [address] + [place] [address] BENNETT, MOMO Unavailable . + [place] [address] R Unavailable Unavailable Unavailable BENNETT, JESSI Unavailable [address] + [place] [address] BENNETT, MOMO Unavailable Unavailable + [place] [address] R Unavailable Unavailable Unavailable BENNETT, JESSI Unavailable [address] + [place] [address] BENNETT, MOMO Unavailable . + [place] [address] R Unavailable Unavailable Unavailable BENNETT, JESSI Unavailable [address] + [place] [address] BENNETT, MOMO Unavailable Unavailable + [place] [address] R Unavailable Unavailable Unavailable BENNETT, JESSI Unavailable [address] + [place] [address] BENNETT, MOMO Unavailable . + [place] [address] R Unavailable Unavailable Unavailable BENNETT, JESSI Unavailable [address] + [place] [address] BENNETT, MOMO Unavailable . + [place] [address] R Unavailable Unavailable Unavailable BENNETT, JESSI Unavailable [address] + [place] [address] BENNETT, MOMO Unavailable Unavailable + [place] [address] R Unavailable Unavailable Unavailable BENNETT, JESSI Unavailable [address] + [place] [address] BENNETT, MOMO Unavailable Unavailable + [place] [address] R Unavailable Unavailable Unavailable BENNETT, JESSI Unavailable [address] + [place] [address] BENNETT, MOMO Unavailable Unavailable + [place] [address] R Unavailable Unavailable Unavailable BENNETT, JESSI Unavailable [address] + [place] [address] BENNETT, MOMO Unavailable Unavailable + [place] [address] R Unavailable Unavailable Unavailable BENNETT, JESSI Unavailable [address] + [place] [address] BENNETT, MOMO Unavailable Unavailable + [place] [address] R Unavailable Unavailable Unavailable BENNETT, JESSI Unavailable [address] + [place] [address] BENNETT, MOMO Unavailable . + [place] [address] R Unavailable Unavailable Unavailable BENNETT, JESSI Unavailable [address] + [place] [address] BENNETT, MOMO Unavailable . + [place] [address] R Unavailable Unavailable Unavailable R Unavailable Unavailable Unavailable R Unavailable Unavailable Unavailable R Unavailable Unavailable Unavailable R Unavailable Unavailable Unavailable Care Team Providers Name Role Phone Gilma Phelps Attending Unavailable Daniel Phillips Attending Unavailable Brissa Santoro Referring Unavailable Marin, Lei Attending Unavailable Marin, Lei Referring Unavailable Marin, Lei Primary Care Unavailable Anitra, Boligee Attending Unavailable Marin, Lei Referring Unavailable Marin, Lei Primary Care Unavailable Anitra, Boligee Attending Unavailable Anitra, [place] Referring Unavailable Marin, Lei Primary Care Unavailable Anitra, [place]ig[place] Attending Unavailable Anitra, [place] Referring Unavailable Marin, Lei Primary Care Unavailable Marin, Lei Primary Care Unavailable Haile Quiles Attending Unavailable Gilma Phelps Attending Unavailable Marin, Lei Referring Unavailable AdelsoSedrick Attending Unavailable Marin, Lei Primary Care Unavailable AdelsoSedrick Referring Unavailable RoofDanial H Attending Unavailable RoofDanial H Referring Unavailable Marin, Lei Primary Care Unavailable Marin, Lei Primary Care Unavailable Rica Read Admitting Unavailable [place]man Matos Attending Unavailable Daniel Phillips Consulting Unavailable White, Rica Attending Unavailable Marin, Lei Primary Care Unavailable White, Rica Admitting Unavailable Jopperi, [place] Attending Unavailable Marin, Lei Primary Care Unavailable Jopperi, [place] Consulting Unavailable White, Rica Admitting Unavailable Jopperi, [place] Attending Unavailable Marin, Lei Primary Care Unavailable Alan, Daniel Consulting Unavailable Jopperi, Umsan Consulting Unavailable White, Rica Admitting Unavailable Jopperi, [...] Referring Unavailable Marin, Lei Primary Care Unavailable Brissa Santoro Attending Unavailable Marin, Lei Referring Unavailable Marin, Lei Primary Care Unavailable AnitraEricAbhishek Attending Unavailable Marin, Lei Primary Care Unavailable Alan, Daniel Attending Unavailable White, Rica Referring Unavailable Alan, Daniel Attending Unavailable White, Rica Referring Unavailable Deven Ramirez Attending Unavailable RamirezDeven garcia Referring Unavailable Marin, Lei Primary Care Unavailable Santoro, Brissa Attending Unavailable Santoro, Brissa Referring Unavailable Marin, Lei Primary Care Unavailable SantoroBrissa Attending Unavailable Santoro, Brissa Referring Unavailable Marin, Lei Primary Care Unavailable AnitraAbhishek tomas Attending Unavailable Anitra, Abhishek Referring Unavailable Marin, Lei Primary Care Unavailable Marin, Lei Primary Care Unavailable Joseph, Carlos Admitting Unavailable Joseph, Carlos Attending Unavailable Eb Kemp Consulting Unavailable Marcos Tucker Attending Unavailable White, Rica Referring Unavailable Joseph, Carlos Admitting Unavailable Joseph, Carlos Attending Unavailable Marin, Lei Primary Care Unavailable Kemp, Eb Consulting Unavailable Joseph, Carlos Consulting Unavailable Joseph, Carlos Admitting Unavailable Joseph, Carlos Attending Unavailable Marin, Lei Primary Care Unavailable Kemp, Eb Consulting Unavailable Joseph, Carlos Consulting Unavailable Joseph, Carlos Admitting Unavailable Joseph, Carlos Attending Unavailable Marin, Lei Primary Care Unavailable Kemp, Eb Consulting Unavailable Joseph, Carlos Consulting Unavailable Joseph, Carlos Admitting Unavailable Joseph, Carlos Attending Unavailable Marin, Lei Primary Care Unavailable Eb Kemp Consulting Unavailable Joseph, Carlos Consulting Unavailable Danial Kemp Attending Unavailable Danial Kemp Attending Unavailable Anitra, Abhishek Attending Unavailable Marin, Lei Referring Unavailable Anitra, Abhishek Attending Unavailable Anitra, Bolig[place] Referring Unavailable Marin, Lei Primary Care Unavailable Brissa Santoro Attending Unavailable Santoro, Brissa Referring Unavailable Marin, Lei Primary Care Unavailable Anitra, Abhishek Attending Unavailable Anitra, Abhishek Referring Unavailable Marin, Eli Primary Care Unavailable Joseph, Carlos Consulting Unavailable Daniel Phillips Attending Unavailable Santoro, Brissa Referring Unavailable Anitra, Bolig[place] Attending Unavailable Anitra, [place] Referring Unavailable Marin, Lei Primary Care Unavailable Marin, Lei Attending Unavailable Marin, Lei Primary Care Unavailable Marin, Lei Attending Unavailable Marin, Lei Referring Unavailable Marin, Lei Primary Care Unavailable Anitra, Abhishek Attending Unavailable Anitra, Bolig[place] Referring Unavailable Marin, Lei Primary Care Unavailable Gurjit Love D.O. 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, Repository unspecified / E11.40(ICD-10) 04/21/2018 Unknown I10 - Essential Lei Funes Active [place] (primary) Community hypertension / Hospital I10(ICD-10) Repository 04/21/2018 Unknown D64.9 - Anemia, Lei Funes Active [place] unspecified / Community D64.9(ICD-10) Hospital Repository 04/06/2018 Unknown I48.0 - Paroxysmal Anitra, Abhishek Active [place] atrial fibrillation / Community I48.0(ICD-10) Hospital Repository 04/06/2018 Unknown Z79.01 - FDC Anitra, Abhishek Active [place] (current) use of Community anticoagulants / Hospital Z79.01(ICD-10) Repository 04/01/2018 Unknown I49.5 - Sick sinus Gilma Phelps Active [place] syndrome / Community I49.5(ICD-10) Hospital Repository 04/01/2018 Unknown I50.22 - Chronic Gilma Phelps Active [place] systolic (congestive) Community heart failure / Hospital I50.22(ICD-10) Repository 04/01/2018 Unknown Z95.0 - 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 Community / I50.9(ICD-10) Hospital Repository 03/10/2018 Unknown R06.02 - Shortness of Gurjit Love, Active [place] breath / D.O. Community R06.02(ICD-10) Hospital Repository 03/10/2018 Unknown G47.33 - Obstructive Gurjit Love, Active [place] sleep apnea (adult) D.O. Community (pediatric) / Hospital G47.33(ICD-10) Repository 03/10/2018 Unknown R91.1 - Solitary Gurjit Love, Active [place] pulmonary nodule / D.O. 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 Community / Z95.3(ICD-10) Hospital Repository 01/22/2018 Unknown Z98.890 - Other Anitra, Abhishek Active [place] specified Community postprocedural states Hospital / Z98.890(ICD-10) Repository 01/22/2018 Unknown E78.00 - Pure Anitra, Boligee Active [place] hypercholesterolemia, Community unspecified / Hospital E78.00(ICD-10) Repository 12/17/2017 Unknown I50.20 - Unspecified Danial Mcdaniel H Active [place] systolic (congestive) [facility] heart failure / Hospital I50.20(ICD-10) Repository 12/25/2017 Unknown J96.01 - Acute Alan, Daniel Active [place] respiratory failure Community with hypoxia / Hospital J96.01(ICD-10) Repository 12/25/2017 Unknown R09.02 - Hypoxemia / Alan, Daniel Active [place] R09.02(ICD-10) [facility] Hospital Repository 12/25/2017 Unknown E87.2 - Acidosis / Alan, Daniel Active [place] E87.2(ICD-10) [facility] Hospital Repository 12/25/2017 Unknown I50.21 - Acute Alan, Daniel Active [place] systolic (congestive) Community heart failure / Hospital I50.21(ICD-10) Repository 12/25/2017 Unknown J91.8 - Pleural Alan, Daniel Active [place] effusion in other Community conditions classified Hospital elsewhere / Repository J91.8(ICD-10) 12/25/2017 Unknown E11.9 - Type 2 Alan, Daniel Active [place] diabetes mellitus Community without complications Hospital / E11.9(ICD-10) Repository 12/25/2017 Unknown E03.9 - Alan, Daniel Active [place] Hypothyroidism, Community unspecified / Hospital E03.9(ICD-10) Repository 09/02/2017 Unknown S62.102A - Fracture Haile Quiles Active [place] of unspecified carpal Community bone, left wrist, Hospital initial encounter for Repository closed fracture / S62.102A(ICD-10) 07/14/2017 Unknown I73.9 - Peripheral Lei Funes Active [place] vascular disease, Community unspecified / Hospital I73.9(ICD-10) Repository PROCEDURES PROCEDURES No Procedure Records FoundRESULTS RESULTS MICROALB:CREAT Collected: 04/22/2018 Status: F Source: [place] RATIO,RANDOM UR 9:16 AM [facility] REPOSITORY TYPE CODE TESTS RESULT OUT OF RANGE REFERENCE UNITS LAB L501.1200 NO RANGE EST. mg/dL Normal UR CREAT 102.00 LAB L502.0500 NO RANGE EST. mg/L Normal 42.1 MICROALBUMIN ,UR LAB L502.0600 <30 mg/g CRE mg/g CRE High 41.3 MALB:CREAT Performed By: #### L502.0250 #### [facility] [place], [address] CBC W/DIFF, AUTOMATED Collected: 04/21/2018 Status: C Source: [place] 10:42 AM [facility] REPOSITORY Order Comment: DANIAL MCDANIEL ORDERED LIVER AND LIPID ONLY AND ORDERED LIPID,AKANKSHA,CMP,B12,A1C,CBCD,FE WILL COME BACK TO LEAVE URINE SAMPLE TYPE CODE TESTS RESULT OUT OF RANGE REFERENCE UNITS LAB L100.1000 4.4-11.0 K/mm3 Low WBC 4.0 LAB L100.1200 4.6-6.2 M/mm3 Low RBC 3.37 LAB L100.1300 13.0-16.5 g/dl Low HGB 9.0 LAB L100.1400 40-54 % Low HCT 29.5 LAB L100.1500 80-94 fL Normal MCV 87.5 LAB L100.1600 27.0-32.0 pg Low MCH 26.7 LAB L100.1700 32-36 g/gl Low MCHC 30.5 LAB L100.1810 11.6-14.6 % High RDW CV 15.0 LAB L100.1820 35.1-43.9 fl High RDW SD 46.8 LAB L100.1900 150-450 K/mm3 Normal PLT 221 LAB L100.2000 6.2-12.0 fl Normal MPV 10.4 LAB L100.2100 47-70 % High NEUT% 73.7 LAB L100.2200 19-41 % Low LY% 14.1 LAB L100.2300 0-10 % High MONO% 10.1 LAB L100.2400 0-5 % Normal EO% 1.3 LAB L100.2500 0-1 % Normal BASO% 0.5 LAB L100.2550 0.0-0.9 % Normal IM GRAN % 0.300 Result Comment: IG% - Immature Granulocytes (promyelocytes, myelocytes and metamyelocytes) > 1% indicates that a LEFT SHIFT is Present. LAB L100.2620 2.0-7.7 X10 3/uL Normal Absolute Neut 2.9 LAB L100.2720 0.83-4.51 X10 3/ul Low Absolute Lymph 0.56 LAB L100.9900 Normal PATH REV Reviewed Result Comment: Normocytic anemia. Clinical correlation necessary. Miguel De La Vega M.D. 04/22/18 AMENDED REPORT 04/22/18 1137 PATH REV previously reported as: May foll Performed By: #### L100.0100 #### [facility] [address], [address] HEMOGLOBIN A1C Collected: 04/21/2018 Status: F Source: [place] 10:42 AM [facility] REPOSITORY Order Comment: DANIAL MCDANIEL ORDERED LIVER AND LIPID ONLY AND ORDERED LIPID,AKANKSHA,CMP,B12,A1C,CBCD,FE WILL COME BACK TO LEAVE URINE SAMPLE TYPE CODE TESTS RESULT OUT OF RANGE REFERENCE UNITS LAB L501.9985 4.2-6.3 % High HGB A1C 6.6 Performed By: #### L501.9985 #### [facility] [address] [place], [address] VITAMIN B12 Collected: 04/21/2018 Status: F Source: [place] 10:42 AM [facility] REPOSITORY Order Comment: DANIAL MCDANIEL ORDERED LIVER AND LIPID ONLY AND ORDERED LIPID,AKANKSHA,CMP,B12,A1C,CBCD,FE WILL COME BACK TO LEAVE URINE SAMPLE TYPE CODE TESTS RESULT OUT OF RANGE REFERENCE UNITS LAB L503.0105 211-911 pg/mL Normal Vitamin B12 469 Performed By: #### L503.0105 #### [facility] [address] [place], [address] COMPREHENSIVE METABOLIC Collected: 04/21/2018 Status: F Source: [facility] 10:39 AM [facility] REPOSITORY Order Comment: DANIAL MCDANIEL ORDERED LIVER AND LIPID ONLY AND ORDERED LIPID,AKANKSHA,CMP,B12,A1C,CBCD,FE..., WILL COME BACK TO LEAVE URINE SAMPLE TYPE CODE TESTS RESULT OUT OF RANGE REFERENCE UNITS LAB L501.0100 74-106 mg/dL Normal GLU 92 Result Comment: Please note revised GLUCOSE reference range effective 2017. LAB L501.1000 7-18 mg/dL High BUN 36 LAB L501.1100 0.70-1.30 mg/dL Normal CREAT,SERUM 1.20 Result Comment: The validity of the calculated GFR AND GFRAA in patients over 70 years has not been determined. Clinical correlation is essential. LAB L501.1110 >60 mL/min Normal EST GFR 63 Result Comment: Non- GFR Calc LAB L501.1115 >60 mL/min Normal EST GFR - AA 76 Result Comment: GFR Calc LAB L501.1300 10-20 RATIO High BUN/CRE 30.0 LAB L501.1500 6.4-8.2 g/dL T Normal PROT 7.7 LAB L501.1800 3.2-5.0 g/dL Normal ALB 4.0 LAB L501.1950 2.2-4.2 g/dL Normal GLOB 3.7 LAB L501.2000 0.9-2.4 RATIO Normal A/G 1.1 LAB L501.2200 8.5-10.1 mg/dL CA Normal 8.8 LAB L501.4100 15-37 U/L Normal AST 16 LAB L501.4305 45-117 U/L Normal ALK P 79 LAB L501.4405 16-61 U/L Normal ALT 25 LAB L501.4600 0.20-1.00 mg/dL T Normal BILI 0.40 LAB L501.5300 136-145 mmol/L NA Normal 137 LAB L501.5600 3.5-5.1 mmol/L K Normal 4.7 LAB L501.5900 98-107 mmol/L CL Normal 105 LAB L501.6100 21.0-32.0 mmol/L Normal CO2 25.0 LAB L501.6200 5-15 Normal GAP 7 Performed By: #### L500.4050, L500.4100, L501.4700, L503.6150, L503.6550 #### [facility] [address] [place], [place], [address] LIPID PROFILE Collected: 04/21/2018 Status: F Source: [place] 10:39 AM [facility] REPOSITORY Order Comment: DANIAL MCDANIEL ORDERED LIVER AND LIPID ONLY AND ORDERED LIPID,AKANKSHA,CMP,B12,A1C,CBCD,FE..., WILL COME BACK TO LEAVE URINE SAMPLE TYPE CODE TESTS RESULT OUT OF RANGE REFERENCE UNITS LAB L501.4900 200 mg/dL Normal CHOL 176 Result Comment: <200 mg/dL Desirable 200-240 mg/dL Borderline >240 mg/dL High Risk LAB L501.5000 mg/dL Normal TRIG 119 Result Comment: The drugs N-Acetylcysteine and Metamizole may falsely depress this assay. Serum Triglycerides Reference Interval Normal <150 mg/dL Borderline high 150 - 199 mg/dL High 200 - 499 mg/dL Very High > or = 500 mg/dL LAB L501.6400 mg/dL Normal HDL 45 Result Comment: The drugs N-Acetylcysteine and Metamizole may falsely depress this assay. Reference Range HDL <40 mg/dL Low HDL Cholesterol HDL >or= 60 mg/dL High HDL Cholesterol LAB L501.6500 0-130 mg/dL Normal LDL 107 LAB L501.6600 5-40 mg/dL Normal VLDL 24 Performed By: #### L500.4050, L500.4100, L501.4700, L503.6150, L503.6550 #### [facility] [address] [place], [place], [address] BILIRUBIN, DIRECT Collected: 04/21/2018 Status: F Source: [place] 10:39 AM [facility] REPOSITORY Order Comment: DANIAL MCDANIEL ORDERED LIVER AND LIPID ONLY AND ORDERED LIPID,AKANKSHA,CMP,B12,A1C,CBCD,FE..., WILL COME BACK TO LEAVE URINE SAMPLE TYPE CODE TESTS RESULT OUT OF RANGE REFERENCE UNITS LAB L501.4700 0.00-0.30 mg/dL Normal D BILI 0.10 Performed By: #### L500.4050, L500.4100, L501.4700, L503.6150, L503.6550 #### [facility] [address] [place], [address] IRON Collected: 04/21/2018 Status: F Source: [place] 10:39 AM [facility] REPOSITORY Order Comment: DANIAL MCDANIEL ORDERED LIVER AND LIPID ONLY AND ORDERED LIPID,AKANKSHA,CMP,B12,A1C,CBCD,FE..., WILL COME BACK TO LEAVE URINE SAMPLE TYPE CODE TESTS RESULT OUT OF RANGE REFERENCE UNITS LAB L503.6150 65-175 ug/dL Low IRON 39 Performed By: #### L500.4050, L500.4100, L501.4700, L503.6150, L503.6550 #### [facility] [address] [facility] [address] FERRITIN Collected: 04/21/2018 Status: F Source: [place] 10:39 AM [facility] REPOSITORY Order Comment: DANIAL MCDANIEL ORDERED LIVER AND LIPID ONLY AND ORDERED LIPID,AKANKSHA,CMP,B12,A1C,CBCD,FE..., WILL COME BACK TO LEAVE URINE SAMPLE TYPE CODE TESTS RESULT OUT OF REFERENCE UNITS RANGE LAB L503.6550 26-388 ng/mL Low FERRITIN 23 Performed By: #### L500.4050, L500.4100, L501.4700, L503.6150, L503.6550 #### [facility] [address] [place], [address] PROTHROMBIN TIME W/INR Collected: 04/10/2018 Status: F Source: [place] 8:52 AM [facility] REPOSITORY Order Comment: Comments: STANDING ORDER Comments: STANDING ORDER TYPE CODE TESTS RESULT OUT OF RANGE REFERENCE UNITS LAB L300.4150 11.7-14.9 SECONDS High PROTIME 23.8 LAB L300.4200 Normal INR 2.1 Performed By: #### L300.3900 #### [facility] [address] [place], [address] PROTHROMBIN TIME W/INR Collected: 03/23/2018 Status: F Source: [place] 9:14 AM [facility] REPOSITORY TYPE CODE TESTS RESULT OUT OF RANGE REFERENCE UNITS LAB L300.4150 11.7-14.9 SECONDS High PROTIME 23.2 LAB L300.4200 Normal INR 2.1 Performed By: #### L300.3900 #### [facility] [address] [place], [address] PACEMAKER CHECK Observed: 03/19/2018 Status: F Source: [place] 11:15 AM [facility] REPOSITORY [facility] [address] [place] [address] Pacemaker Check Date of Service: 03/19/18 1010 MR#: [id number] Acct: [id number] Name: MIKALA WILSON Rep #: [id number] : 1940 From: Gilma Phelps Age/Sex: 77/M [place] [facility] [place]: Signed Billing Codes PM Device Codes: PM Ty Aguilar 03/19/18 1011 <Electronically signed by Gilma Phelps > Date Gilma Phelps 03/19/18 1115<Electronically signed by Abhishek Ayoub MD> Cosigner Signature: Date (if applicable) Abhishek Ayoub MD CC: PROTHROMBIN TIME W/INR Collected: 03/09/2018 Status: F Source: [place] 8:08 AM [facility] REPOSITORY TYPE CODE TESTS RESULT OUT OF RANGE REFERENCE UNITS LAB L300.4150 11.7-14.9 SECONDS High PROTIME 22.0 LAB L300.4200 Normal INR 1.9 Performed By: #### L300.3900 #### [facility] Laboratory [facility] [place], [address] PULMONARY VISIT REPORT Observed: 03/05/2018 Status: F Source: [place] 11:27 AM [facility] REPOSITORY Pulmonary Medicine of [address] [place] [address] OFFICE VISIT Date of Service: 03/05/18 MR#: [id number] Acct: [id number] Name: MIKALA WILSON Rep #: [id number] : 1940 Provider: Gurjit Love D.O. Age/Sex: 77/M [facility] Status: Signed Assessment AND Plan 1. 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 Accompanied by: Is patient in [...] Days #15 tab 03/05/18 [History Confirmed 03/05/18] PFSH Medical History Sick sinus syndrome (Chronic) Chronic systolic (congestive) heart failure (Chronic) Paroxysmal atrial fibrillation (Chronic) Other secondary pulmonary hypertension (Chronic) Nonrheumatic mitral valve regurgitation (Chronic) Nonrheumatic aortic (valve) stenosis (Chronic) Nonrheumatic aortic (valve) insufficiency (Chronic) Carotid artery stenosis (Chronic) Atherosclerotic heart disease of [place] coronary artery without angina pectoris (Chronic) Hyperlipidemia [...] signed by Gurjit Love DO> Date Gurjit Love DO Cosigner Signature: Date (if applicable) CC: Lei Funes DO 6 MINUTE WALK TEST Observed: 02/24/2018 Status: F Source: [place] 12:39 PM [facility] REPOSITORY [facility] Pulmonary Services/Neurology [address] [place] [address] MR#: [id number] Acct: [id number] Name: MIKALA WILSON Rep #: [id number] : 1940 77 From: Daniel Phillips MD Referring Dr: Brissa Santoro NP Date: Ordering Dr: Merlene: Ana Laura Vega Location: PSN PSN 6 Minute Walk Test - 6 Minute Walk Test 6 Minute Walk Test: 6 Minute Walk Test PSN:6-Minute Walk Test Start: 01/05/18 09:42 Freq: Status: Active Protocol: RESP.6MINW Document 01/05/18 09:42 SFOTFON (Rec: 01/05/18 09:47 SFENTON [id number]) 6 Minute Walk Test Date Performed 01/05/18 [...] CC: Date Dictated: 01/05/18 1505 Date Transcribed: 01/05/18 1505 Communications Department Chairperson: Daniel Phillips Signed PROTHROMBIN TIME W/INR Collected: 02/23/2018 Status: F Source: [place] 8:36 AM [facility] REPOSITORY TYPE CODE TESTS RESULT OUT OF RANGE REFERENCE UNITS LAB L300.4150 11.7-14.9 SECONDS High PROTIME 22.3 LAB L300.4200 Normal INR 2.0 Performed By: #### L300.3900 #### [facility] Laboratory [address] [place], [address] CHEST PA AND LATERAL Observed: 02/20/2018 Status: F Source: [place] 3:43 PM [facility] REPOSITORY [facility] Imaging Services [address] [place] [address] Chest PA and Lateral MR#: [id number] Acct: [id number] Name: MIKALA WILSON Rep #: [id number] : 1940 M 77 From: Tres Quiles MD PCP: Lei Funes DO Status: REG CLI Study: Chest PA and Lateral Date of Exam: 02/20/18 Exam# [id number] Ordering Dr: Lei Funes DO STUDY: X-RAY [...] Service support , CC: Lei Funes DO Communications Department Chairperson: Signed PROTHROMBIN TIME W/INR Collected: 02/16/2018 Status: F Source: [place] 8:52 AM [facility] REPOSITORY TYPE CODE TESTS RESULT OUT OF RANGE REFERENCE UNITS LAB L300.4150 11.7-14.9 SECONDS High PROTIME 18.9 LAB L300.4200 Normal INR 1.6 Performed By: #### L300.3900 #### [facility] Laboratory [address] [place], [address] PULMONARY FUNCTION Observed: 02/05/2018 Status: F Source: [place] REPORT COMP 5:37 AM [facility] REPOSITORY [facility] Pulmonary Services/Neurology [address] [place] [address] MR#: [id number] Acct: [id number] Name: MIKALA WILSON Rep #: [id number] : 1940 77 From: Daniel Phillips MD Referring Dr: Brissa Santoro NP Status: REG CLI Ordering Dr: Date: Location: PSN Sex: M C COMPLETE PULMONARY FUNCTION TEST INTERPRETATION Brief HPI: Patient is a 77 year old male, currently under the care of myself, who presents to [facility] for complete pulmonary function tests secondary to [...] Date Dictated: 02/04/18 1508 Date Transcribed: 02/04/18 150 Communications Department Chairperson: NATALIIA Signed CHEST WITH CONTRAST Observed: 02/02/2018 Status: F Source: [place] 12:33 PM [facility] Imaging Services [address] [place] [address] Chest WITH Contrast MR#: [id number] Acct: [id number] Name: MIKALA WILSON Rep #: [id number] : 1940 M 77 From: Lili Lopez MD PCP: Lei Funes DO Status: REG CLI Study: Chest WITH Contrast Date of Exam: 02/02/18 Exam# [id number] Ordering Dr: Brissa Santoro HEALTH CLUB MANAGER-C STUDY: CT CHEST WITH CONTRAST REASON FOR [...] the lower lobes. Atherosclerosis. Electronically Signed: Lili Lopez MD at 18:53 EDT Tel , Service support , CC: Brissa Santoro; Lei Funes DO Communications Department Chairperson: Signed SERUM CREATININE AND Collected: 02/02/2018 Status: F Source: [place] GFR 11:58 AM [facility] REPOSITORY TYPE CODE TESTS RESULT OUT OF [...] GFR Calc Performed By: #### L501.1105 #### [facility] Laboratory [address] [place], [address] PROTHROMBIN TIME W/INR Collected: 01/29/2018 Status: F Source: [place] 1:14 PM [facility] REPOSITORY Order Comment: Send Results To: PCP to adjust dose of coumadin Reason for Laboratory Test On comadin TYPE CODE TESTS RESULT OUT OF RANGE REFERENCE UNITS LAB L300.4150 11.7-14.9 SECONDS High PROTIME 19.7 LAB L300.4200 Normal INR 1.7 Performed By: #### L300.3900 #### [facility] Laboratory [address] [place], [address] PROTHROMBIN TIME W/INR Collected: 01/22/2018 Status: F Source: [place] 3:59 PM [facility] REPOSITORY TYPE CODE TESTS RESULT OUT OF RANGE REFERENCE UNITS LAB L300.4150 11.7-14.9 SECONDS High PROTIME 21.9 LAB L300.4200 Normal INR 1.9 Performed By: #### L300.3900 #### [facility] Laboratory [address] [place], [address] CARDIOLOGY VISIT Observed: 01/22/2018 Status: F Source: [place] REPORT 3:37 PM [facility] REPOSITORY [facility] [address] [place] [address] OFFICE VISIT Date of Service: 01/22/18 MR#: [id number] Acct: [id number] Name: MIKALA WILSON Rep #: [id number] : 1940 Provider: Abhishek Ayoub MD Age/Sex: 77/M Location: [facility] [place] Status: Signed [...] 6 units of PRBCs. Patient presented to [facility] in December 2017 for worsening shortness of [...] Intake Visit Reasons: DC 10-6 (2-4 wks) Field Application Engineer Required: No Accompanied by: Is patient in [...] PO BIDCM tab 01/22/18 [History Confirmed 01/22/18] [facility] Medical History Sick sinus syndrome (Chronic) Chronic systolic (congestive) heart failure (Chronic) Paroxysmal atrial fibrillation (Chronic) Other secondary pulmonary hypertension (Chronic) Nonrheumatic mitral valve regurgitation (Chronic) Nonrheumatic aortic (valve) stenosis (Chronic) Nonrheumatic aortic (valve) insufficiency (Chronic) Carotid artery stenosis (Chronic) Atherosclerotic heart disease of [place] coronary artery without angina pectoris (Chronic) Hyperlipidemia [...] MAZE procedure 01/24/[address] Tolliver @ [facility] Plan He is status post mitral valve [...] pacemaker Z95.0 Permanent pacemaker placement 02/02/16 @ [facility] Plan He is status post permanent pacemaker implantation. This appears to be functioning quite well his last pacemaker interrogation demonstrated adequate functioning. He has had some mode switch episodes noted. 4. Pure hypercholesterolemia E78.00 Plan He does have a history of hyperlipidemia and remains on lipid- lowering medication for the above no changes will be made with regard to this. 5. Atherosclerosis of [place] coronary artery without angina pectoris, unspecified whether [place] or transplanted heart I25.10 Plan His last catheterization in 2015 demonstrated normal left main coronary artery, left circumflex artery with no significant stenosis, LAD with no high-grade stenosis in a dominant right coronary artery with mid segment moderate disease noted. He will continue with aggressive risk factor modification. 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 transplanted heart: unspecified whether [place] or transplanted heart 01/22/18 1537 <Electronically signed by Abhishek Ayoub MD> Date Abhishek Ayoub MD Cosigner Signature: Date (if applicable) CC: Lei Funes DO CBC-COMPLETE BLOOD CNT Collected: 01/19/2018 Status: F Source: [place] NO DIFF 6:05 AM [facility] REPOSITORY Order Comment: ROOM 401 TYPE CODE [...] MPV 10.5 Performed By: #### L100.0500 #### [facility] Laboratory [address] [place], [address] BASIC METABOLIC Collected: 01/19/2018 Status: F Source: [place] PROFILE (BMP) 6:05 AM [facility] REPOSITORY Order Comment: ROOM 401 TYPE CODE [...] GAP 9 Performed By: #### L500.2500 #### [facility] Laboratory [address] [place], [address] 12 LEAD ELECTROCARDIOGRAM Observed: 01/14/2018 Status: F Source: [place] 3:34 PM [facility] REPOSITORY [facility] Cardiovascular [place] [address] 12 Lead EKG 01/07/18 0922 MR#: [id number] Acct: [id number] Name: BENNETTMIKALA H Rep #: [id number] : 1940 77 From: Abhishek Ayoub MD Attending Dr: Carlos Ruiz MD Status: DIS IN Ordering Dr: Attila Pinon DO Date: 01/07/18 Location: [facility]3 Sex: M C Admitted: 01/07/18 Test Reason [...] ECG Confirmed by ABHISHEK AYOUB MD ([id number]), newspaper editor managing IZZY KEMP ([id number]) on 01/14/2018 3:34:37 PM Referred By: Brissa Santoro Confirmed By:ABHISHEK AYOUB MD 01/14/18 1534 Date Abhishek Ayoub MD CC: Lei Funes DO; Carlos Ruiz MD; Attila Pinon DO Signed BASIC METABOLIC Collected: 01/12/2018 Status: F Source: [place] PROFILE (BMP) 4:55 AM [facility] REPOSITORY TYPE CODE TESTS RESULT OUT OF [...] GAP 11 Performed By: #### L500.2500 #### [facility] Laboratory [address] [place], [address] CBC-COMPLETE BLOOD CNT Collected: 01/12/2018 Status: F Source: [place] NO DIFF 4:55 AM [facility] REPOSITORY TYPE CODE TESTS RESULT OUT OF [...] MPV 11.1 Performed By: #### L100.0500 #### [facility] Laboratory [address] [place], [address] DISCHARGE SUMMARY Observed: 01/10/2018 Status: F Source: [place] 12:32 PM [facility] REPOSITORY [facility] Medical Records Department [address] [place] [address] Discharge Summary 01/10/18 0910 MR#: [id number] Acct: [id number] Name: MIKALA WILSON Rep #: [id number] : 1940 77 From: Carlos Ruiz MD PCP: Lei Funes DO Status: DIS IN Y Location: [place] [id number] Discharge Date and Diagnosis Date of Admission: [...] atrial fibrillation (Chronic) Atherosclerotic heart disease of [place] coronary artery without angina pectoris (Chronic) History [...] 1.4. Patient was further admitted on regular MedSur floor. Patient was seen and examined today. [...] pneumothorax: Patient is being admitted to regular Medr floor. Incentive spirometry. Pain control. Repeat chest [...] Discussed with the orthopedic surgeon, Dr. Eb Kemp and he suggested MRI left pelvis and [...] control. Follow-up with orthopedic surgeon, Dr. Eb Kemp as an outpatient. 3. Recent admission with [...] 2 weeks Please Follow Up With: Eb Kemp MD When: in 2 Weeks for pubic bones fracture Medical Necessity - Tobacco Use Smoking Status: Former smoker Meaningful Use Info Meaningful Use Diagnoses (Choose all that apply): None applicable Code Visit Inpatient E AND M: 33399 Disch Hosp 01/10/18 1232 <Electronically signed by Carlos Ruiz MD> Date Carlos Ruiz MD Cosigner Signature (if applicable): Date CC: Lei Funes DO; Carlos Ruiz MD Signed TRANSFER TO [facility] Observed: 01/10/2018 Status: F Source: [facility] 9:10 AM [facility] REPOSITORY [facility] Medical Records Department [address] [place] [address] Transfer to Extended Care MR#: [id number] Acct: [id number] Name: MIKALA WILSON Rep #: [id number] : 1940 77 From: Carlos Ruiz MD PCP: Lei Funes DO Status: ADM IN MIKALA WILSON (Patient) (Health Ins. Claim No.) (Day of Discharge to Facility) Certification of patient admission REQUIRED AT TIME OF ADMISSION. I CERTIFY THAT POST-HOSPITAL ECF SERVICES ARE REQUIRED TO BE GIVEN ON AN IN-PATIENT BASIS BECAUSE OF THE ABOVE NAMED PATIENT'S NEED FOR HALF-WAY CARE ON A CONTINUING BASIS FOR THE [...] 2 weeks Please Follow Up With: Eb Kemp MD When: in 2 Weeks for pubic bones fracture 01/10/18 0910 <Electronically signed by Carlos Ruiz MD> Date Carlos Ruiz MD CC: Lei Funes DO; Eb Kemp MD Signed PROTHROMBIN TIME W/INR Collected: 01/10/2018 Status: F Source: [place] 7:25 AM [facility] REPOSITORY TYPE CODE TESTS RESULT OUT OF RANGE REFERENCE UNITS LAB L300.4150 11.7-14.9 SECONDS High PROTIME 16.0 LAB L300.4200 Normal INR 1.3 Performed By: #### L300.3900 #### [facility] Laboratory [facility] [address] [place], [place], [address] CBC W/DIFF, AUTOMATED Collected: 01/10/2018 Status: F Source: [place] 7:25 AM [facility] REPOSITORY TYPE CODE TESTS RESULT OUT OF [...] Lymph 0.62 Performed By: #### L100.0100 #### [facility] Laboratory [address] [place], [address] HEMOGLOBIN A1C Collected: 01/10/2018 Status: F Source: [place] 7:25 AM [facility] REPOSITORY TYPE CODE TESTS RESULT OUT OF RANGE REFERENCE UNITS LAB L501.9985 4.2-6.3 % High HGB A1C 7.5 Performed By: #### L501.9985 #### [facility] Laboratory [address] [place], [address] BEDSIDE GLUCOSE Collected: 01/10/2018 Status: F Source: [place] 6:40 AM [facility] REPOSITORY TYPE CODE TESTS RESULT OUT OF RANGE REFERENCE UNITS LAB L501.080 70-110 mg/dL Normal BEDSIDE GLU 84 Result Comment: MANAGEMENT OF PATIENT CARE PER NURSING PROTOCOL Performed By: #### L501.080 #### [facility] Laboratory Point of Care [address] [facility] [place] [address] BEDSIDE GLUCOSE Collected: 01/09/2018 Status: F Source: [place] 9:28 PM [facility] REPOSITORY TYPE CODE TESTS RESULT OUT OF REFERENCE UNITS RANGE LAB L501.080 70-110 mg/dL High BEDSIDE GLU 262 Result Comment: MANAGEMENT OF PATIENT CARE PER NURSING PROTOCOL Performed By: #### L501.080 #### [facility] Laboratory Point of Care [address] [place] [address] BEDSIDE GLUCOSE Collected: 01/09/2018 Status: F Source: [place] 4:04 PM [facility] REPOSITORY TYPE CODE TESTS RESULT OUT OF REFERENCE UNITS RANGE LAB L501.080 70-110 mg/dL High BEDSIDE GLU 319 Result Comment: MANAGEMENT OF PATIENT CARE PER NURSING PROTOCOL Performed By: #### L501.080 #### [facility] Laboratory Point of Care [address] [place] [address] PROTHROMBIN TIME W/INR Collected: 01/09/2018 Status: F Source: [place] 7:18 AM [facility] REPOSITORY TYPE CODE TESTS RESULT OUT OF RANGE REFERENCE UNITS LAB L300.4150 11.7-14.9 SECONDS High PROTIME 16.6 LAB L300.4200 Normal INR 1.3 Performed By: #### L300.3900 #### [facility] Laboratory [address] [place], [address] PROTHROMBIN TIME W/INR Collected: 01/08/2018 Status: F Source: [place] 5:31 PM [facility] REPOSITORY TYPE CODE TESTS RESULT OUT OF RANGE REFERENCE UNITS LAB L300.4150 11.7-14.9 SECONDS High PROTIME 17.1 LAB L300.4200 Normal INR 1.4 Performed By: #### L300.3900 #### [facility] Laboratory [address] [place], [address] EMERGENCY DEPARTMENT Observed: 01/08/2018 Status: F Source: [place] SUMMARY 4:21 PM [facility] REPOSITORY [facility] Medical Records Department [address] [place] [address] Emergency Department Summary 01/07/18 0833 MR#: [id number] Acct: [id number] Name: MIKALA WILSON Rep #: [id number] : 1940 77 From: Attila Pinon DO [...] Coumadin coagulopathy] This note was generated with [employer] software. It may contain incorrect words, spelling, and punctuation that were not noted in review of the chart prior to signing ED Disposition - Plan for ED Patient: Disposition: Acute Care Hospital [facility] Chief Complaint: Fall Referrals: Lei Funes DO [Primary Care Provider] - What to do if you have Problems For any increased pain, shortness of breath, bleeding, nausea or vomiting, chest pain, or any unexpected problems, contact your Primary Care Provider. Call [facility] ([phone]) or report to the closest Emergency Room. Call 911 if necessary. 01/08/18 1621 <Electronically signed by Attila Pinon DO> Date Attila Pinon DO Cosigner Signature (If Indicated): Date CC: Lei Funes DO CHEST PA AND LATERAL Observed: 01/08/2018 Status: F Source: [place] 9:02 AM [facility] REPOSITORY [facility] Imaging Services [place] [address] Chest PA and Lateral MR#: [id number] Acct: [id number] Name: MIKALA WILSON Rep #: [id number] : 1940 M 77 From: Jasiel Olvera DO PCP: Lei Funes DO Status: ADM IN Study: Chest PA and Lateral Date of Exam: 01/08/18 Exam# [id number] Ordering Dr: Carlos Ruiz MD STUDY: X-RAY [...] CC: Lei Funes DO; Carlos Ruiz MD Communications Department Chairperson: Signed BASIC METABOLIC Collected: 01/08/2018 Status: F Source: [place] PROFILE (BMP) 4:55 AM [facility] REPOSITORY TYPE CODE TESTS RESULT OUT OF [...] GAP 8 Performed By: #### L500.2500 #### [facility] Laboratory [address] [place], [address] CBC W/DIFF, AUTOMATED Collected: 01/08/2018 Status: F Source: [place] 4:55 AM [facility] REPOSITORY TYPE CODE TESTS RESULT OUT OF [...] Lymph 0.72 Performed By: #### L100.0100 #### [facility] Laboratory [address] [place], [address] HISTORY AND PHYSICAL Observed: 01/07/2018 Status: F Source: [place] EXAM 5:07 PM [facility] REPOSITORY [facility] Medical Records Department [address] [place] [address] History and Physical 01/07/18 1212 MR#: [id number] Acct: [id number] Name: MIKALA WILSON Rep #: [id number] : 1940 77 From: Carlos Ruiz MD PCP: Lei Funes DO Status: ADM IN Y Location: [place] [address] ADDENDUM by Carlos Ruiz MD on 01/07/18 [...] atrial fibrillation (Chronic) Atherosclerotic heart disease of [place] coronary artery without angina pectoris (Chronic) History [...] (Last Reviewed 12/22/17 @ 16:05 by Brissa Santoro, HEALTH CLUB MANAGER-C) Sick sinus syndrome (Chronic) I49.5 CLEMENT (obstructive sleep apnea) (Chronic) G47.33 Congestive heart failure, unspecified (Chronic) I50.9 Other secondary pulmonary hypertension (Chronic) I27.29 Nonrheumatic mitral valve regurgitation (Chronic) I34.0 Nonrheumatic aortic (valve) stenosis (Chronic) I35.0 Nonrheumatic aortic (valve) insufficiency (Chronic) I35.1 Carotid artery stenosis (Chronic) I65.29 Chronic atrial fibrillation (Chronic) I48.2 Atherosclerotic heart disease of [place] coronary artery without angina pectoris (Chronic) I25.10 [...] (Last Reviewed 12/22/17 @ 16:05 by Brissa Santoro, HEALTH CLUB MANAGER-C) History of maze procedure (Chronic) Z98.890 [...] Brissa Santoro NP-C) Shortness of breath (Acute) FDC (current) use of anticoagulants (Acute) Heart failure [...] Discussed with the orthopedic surgeon, Dr. Eb Kemp and he suggested MRI left pelvis and hip but could not be done as patient has pacemaker and difficulty in laying down with ribs fracture. CT left pelvis and left hip without contrast ordered. If it is pubic fracture, Dr. Kemp said he does not have to see [...] 75.9 H, Lymph % (Auto) 10.9 L, [place] % (Auto) 11.8 H, Eos % (Auto) [...] fracture. Code Visit Inpatient E AND M: 58153 Subs Hosp L3 01/07/18 1406 <Electronically signed by Carlos Ruiz MD> Date Carlos Ruiz MD Cosigner Signature: Date (if applicable) CC: Lei Funes DO; Carlos Ruiz MD Signed EXTREMITY LOWER Observed: 01/07/2018 Status: F Source: [place] WITHOUT CONTRA 1:29 PM [facility] REPOSITORY [facility] Imaging Services [address] [place] [address] Extremity Lower without Contra MR#: [id number] Acct: [id number] Name: MIKALA WILSON Rep #: [id number] : 1940 M 77 From: Oscar Diaz MD PCP: Lei Funes DO Status: ADM IN Study: Extremity Lower without Contra Date of Exam: 01/07/18 Exam# [id number] Ordering Dr: Carlos Ruiz MD Exam: CT [...] CC: Lei Funes DO; Carlos Ruiz MD Communications Department Chairperson: Signed PELVIS WITHOUT IV Observed: 01/07/2018 Status: F Source: [place] CONTRAST 1:29 PM [facility] REPOSITORY [facility] Imaging Services [address] [place] [address] Pelvis without IV Contrast MR#: [id number] Acct: [id number] Name: MIKALA WILSON Rep #: [id number] : 1940 M 77 From: Oscar Diaz MD PCP: Lei Funes DO Status: ADM IN Study: Pelvis without IV Contrast Date of Exam: 01/07/18 Exam# [id number] Ordering Dr: Carlos Ruiz MD STUDY: CT [...] EDT , Service support , CC: Lei Ruiz MD Communications Department Chairperson: Signed CBC W/DIFF, AUTOMATED Collected: 01/07/2018 Status: F Source: [place] 8:40 AM [facility] REPOSITORY TYPE CODE TESTS RESULT OUT OF [...] Lymph 0.64 Performed By: #### L100.0100 #### [facility] Laboratory [address] [place] [address]. [place], [place], [address] BASIC METABOLIC Collected: 01/07/2018 Status: F Source: [place] PROFILE (BMP) 8:40 AM [facility] REPOSITORY TYPE CODE TESTS RESULT OUT OF [...] 9 Performed By: #### L500.2500, L501.4010 #### [facility] Laboratory [address] [facility]. [place], [place], [address] TROPONIN-I Collected: 01/07/2018 Status: F Source: [place] 8:40 AM [facility] REPOSITORY TYPE CODE TESTS RESULT OUT OF RANGE REFERENCE UNITS LAB L501.4010 <0.045 ng/mL Normal < 0.015 TROPONIN-I Result Comment: TROPONIN-I EXPECTED VALUES <0.045 Negative 0.045 - 0.590 Consistent with Cardiac Damage > OR = 0.600 Critical Value Not every elevated troponin is indicative of TN. These values should be used with clinical judgement in examining the patient's clinical picture for diagnosis. To establish a diagnosis of TN versus myocardial injury, there must be a demonstrated rise and/or fall in the troponin values, in addition to ischemic symptoms, EKG changes, new regional wall motion abnormality, and/or angiographical evidence. PLEASE NOTE: REFERENCE RANGES EDITED 17 Performed By: #### L500.2500, L501.4010 #### [facility] Laboratory [address] [facility] [place], [address] PROTHROMBIN TIME W/INR Collected: 01/07/2018 Status: F Source: [place] 8:20 AM [facility] REPOSITORY TYPE CODE TESTS RESULT OUT OF RANGE REFERENCE UNITS LAB L300.4150 11.7-14.9 SECONDS High PROTIME 17.4 LAB L300.4200 Normal INR 1.4 Performed By: #### L300.3900 #### [facility] Laboratory [address] [place], [address] BRAIN/HEAD WITHOUT Observed: 01/07/2018 Status: F Source: [place] CONTRAST 8:17 AM [facility] REPOSITORY [facility] Imaging Services [address] [place] [address] Brain/Head without Contrast MR#: [id number] Acct: [id number] Name: MIKALA WILSON Rep #: [id number] : 1940 M 77 From: Jasiel Olvera DO PCP: Lei Funes DO Status: REG ER Study: Brain/Head without Contrast Date of Exam: 01/07/18 Exam# [id number] Ordering Dr: Attila Pinon DO STUDY: CT [...] CC: Lei Funes DO; Attila Pinon DO Communications Department Chairperson: Signed CHEST WITHOUT Observed: 01/07/2018 Status: F Source: [place] CONTRAST 8:17 AM [facility] REPOSITORY [facility] Imaging Services [address] [facility] [place] [address] Chest without Contrast MR#: [id number] Acct: [id number] Name: MIKALA WILSON Rep #: [id number] : 1940 M 77 From: Jasiel Olvera DO PCP: Lei Funes DO Status: REG ER Study: Chest without Contrast Date of Exam: 01/07/18 Exam# [id number] Ordering Dr: Attila Pinon DO STUDY: CT [...] CC: Lei Funes DO; Attila Pinon DO Communications Department Chairperson: Signed HIP, UNI W/ PELVIS Observed: 01/07/2018 Status: F Source: [place] 2-3 VIEWS 8:17 AM [facility] REPOSITORY [facility] Imaging Services [address] [place] [address] HIP, UNI W/ Pelvis 2-3 Views MR#: [id number] Acct: [id number] Name: MIKALA WILSON Rep #: [id number] : 1940 M 77 From: Jasiel Olvera DO PCP: Lei Funes DO Status: REG ER Study: HIP, UNI W/ Pelvis 2-3 Views Date of Exam: 01/07/18 Exam# [id number] Ordering Dr: Attila Pinon DO STUDY: X-RAY [...] evidence of femoral neck fracture. Electronically Signed: Jasiel Olvera DO at 9:31 EDT Tel , Service support , CC: Lei Funes DO; Attila Pinon DO Communications Department Chairperson: Signed PROTHROMBIN TIME W/INR Collected: 01/01/2018 Status: F Source: [place] 2:27 PM [facility] REPOSITORY Order Comment: Send Results To: Abhishek Ayoub Reason for Laboratory Test coumadin monitoring TYPE CODE TESTS RESULT OUT OF RANGE REFERENCE UNITS LAB L300.4150 11.7-14.9 SECONDS High PROTIME 17.8 LAB L300.4200 Normal INR 1.5 Performed By: #### L300.3900 #### [facility] Laboratory [address] [facility] [place], [address] LOWER EXT ARTERIAL Observed: 12/31/2017 Status: F Source: [facility] 8:41 AM [facility] REPOSITORY [facility] Cardiovascular Services [address] [place] [address] 12/31/17 0839 MR#: [id number] Acct: [id number] Name: MIKALA WILSON Rep #: [id number] : 1940 77 From: Deven Ramirez MD Attending Dr: Deven Ramirez MD Status: REG CLI Ordering Dr: Date: 12/31/17 Location: [facility] Sex: M C Admitted: Arterial Study [...] Ramirez MD; Lei Funes DO Date Dictated: 12/31/17838 Date Transcribed: 12/31/17838 Communications Department Chairperson: WILBER Signed ABD AORTIC/IVC DUPLEX Observed: 12/31/2017 Status: F Source: [place] SCAN 8:22 AM [facility] REPOSITORY [facility] Cardiovascular Services [address] [place] [address] Abd Aortic/IVC Duplex scan 12/30/17 0754 MR#: [id number] Acct: [id number] Name: MIKALA WILSON Rep #: [id number] : 1940 77 From: Deven Ramirez MD Attending Dr: Deven Ramirez MD Status: REG CLI Ordering Dr: Deven Ramirez MD Date: 12/30/17 Location: [facility] Sex: M C Admitted: Reason For Study: [...] Aorta IVC Iliac vasculature or bypass grafts 68047. Exam performed in department. Interpretation Summary 1. No aortoiliac stenosis. Ordering Physician: Deven Ramirez Referring Physician: Lei Funes Performed By: Anum Fuchs RVT and Student 12/31/17821 Date Deven Ramirez MD CC: Deven Ramirez MD; Lei Funes DO Date Dictated: 12/30/17 0754 Date Transcribed: 12/31/17821 Communications Department Chairperson: Signed ARTERIAL DUPLEX US, Observed: 12/31/2017 Status: F Source: [place] LIMITED 8:21 AM [facility] REPOSITORY [facility] Cardiovascular Services [address] [place] [address] Art Duplex US Unilat Lower Ext 12/30/17815 MR#: [id number] Acct: [id number] Name: MIKALA WILSON Rep #: [id number] : 1940 77 From: Deven Ramirez MD [...] Ramirez Referring Physician: Lei Funes Performed By: Anmu Fuchs RVT 12/31/17819 Date Deven Ramirez MD CC: Deven Ramirez MD; Lei Funes DO Date Dictated: 12/30/17815 Date Transcribed: 12/31/17819 Communications Department Chairperson: Signed PROTHROMBIN TIME W/INR Collected: 12/24/2017 Status: F Source: [place] 11:09 AM [facility] REPOSITORY Order Comment: Comments: STANDING ORDER Comments: STANDING ORDER TYPE CODE TESTS RESULT OUT OF RANGE REFERENCE UNITS LAB L300.4150 11.7-14.9 SECONDS High PROTIME 17.7 LAB L300.4200 Normal INR 1.5 Performed By: #### L300.3900 #### [facility] Laboratory [address] [place], [address] PULMONARY VISIT REPORT Observed: 12/22/2017 Status: F Source: [place] 4:26 PM [facility] REPOSITORY [facility] [address] [place] [address] OFFICE VISIT Date of Service: 12/22/17 MR#: [id number] Acct: [id number] Name: MIKALA WILSON Rep #: [id number] : 1940 Provider: Brissa Santoro Age/Sex: 77/M Location: [facility] Status: Signed Assessment AND Plan 1. 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 [place] [address] OFFICE VISIT Date of Service: 12/17/17 MR#: [id number] Acct: [id number] Name: MIKALA WILSON Rep #: [id number] : 1940 Provider: PAULETTE Mcdaniel Age/Sex: 77/M Location: [facility] Status: Signed [...] 6 units of PRBCs. Patient presented to [facility] in December 2017 for worsening shortness of [...] Pulse Rate 94 Intake Visit Reasons: S/P [facility] Allergies No Known Allergies Allergy (Verified 12/17/17 [...] DAILY #30 tab 12/11/17 [Rx Confirmed 12/17/17] PFS Medical History Sick sinus syndrome (Chronic) CLEMENT (obstructive sleep apnea) (Chronic) Congestive heart failure, unspecified (Chronic) Other secondary pulmonary hypertension (Chronic) Nonrheumatic mitral valve regurgitation (Chronic) Nonrheumatic aortic (valve) stenosis (Chronic) Nonrheumatic aortic (valve) insufficiency (Chronic) Carotid artery stenosis (Chronic) Chronic atrial fibrillation (Chronic) Atherosclerotic heart disease of [place] coronary artery without angina pectoris (Chronic) Hyperlipidemia [...] Presenting rhythm shows Sinus Tachycardia @106 bpm. SUPERINTENDENT MARINE=0.6%. Battery longevity approx 13.5 yrs. Lead impedances, [...] MAZE procedure 01/24/[address] Tolliver @ [facility] Plan - ALEX Arroyo His echocardiogram in December 2017 showed mild to moderate mitral valve stenosis and mild transvalvular insufficiency mitral valve. He will continue current medications and we will continue to monitor. 3. Paroxysmal atrial fibrillation I48.0 S/P MAZE procedure in 2015; Plan - ALEX Arroyo His echocardiogram in December 2017 showed severely enlarged left atrium and severely enlarged right atrium. 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 His Coumadin was reinitiated. His heart rate is well-controlled, but on the upper limits. He will continue with his current beta-travis and Coumadin therapy. 4. Acute systolic heart failure I50.21 Plan - ALEX Arroyo His most recent echocardiogram in December 2017 [...] with primary care physician tomorrow and with evs attendant next week in which his BP will be rechecked. We will see the patient back in approximately 4 weeks to evaluate symptoms and blood pressure. He will also undergo a CBC to evaluate for any progressing anemic component since reinitiating Coumadin therapy. 6. 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 We will continue to monitor this with routine/scheduled follow-ups. Plan Detail Other Orders Orders: Other Medications Discontinued: levofloxacin Discontinued Reason: Discontinued by PCP/o750 mg PO DAILY [facility] prednisone Discontinued Reason: Discontinued by PCP/oth4 tabs PO DAILY [facility] Additional Comments - ALEX [...] prior to saving. Follow Up 4 Weeks (JULIAR) Coding Level of Care Code Off vis,est,level [...] Z95.0 12/17/17 0952 <Electronically signed by Danial JOHNSON> Date Danial LEIGHC 12/18/17 1025<Electronically signed by Abhishek Ayoub MD> Cosigner Signature: Date (if applicable) Abhishek Ayoub MD CC: Lei Funes DO CBC W/DIFF, AUTOMATED Collected: 12/17/2017 Status: F Source: [place] 9:33 AM [facility] REPOSITORY TYPE CODE TESTS RESULT OUT OF [...] LYMPHOPENIA NOTED. Performed By: #### L100.0100 #### [facility] Laboratory [address] [facility]. [place], [place], [address] PROTHROMBIN TIME W/INR Collected: 12/17/2017 Status: F Source: [place] 9:32 AM [facility] REPOSITORY Order Comment: Send Results To: Abhishek Ayoub Reason for Laboratory Test coumadin monitoring TYPE CODE TESTS RESULT OUT OF RANGE REFERENCE UNITS LAB L300.4150 11.7-14.9 SECONDS High PROTIME 17.8 LAB L300.4200 Normal INR 1.5 Performed By: #### L300.3900 #### [facility] Laboratory [address] [facility]. [place], [place], [address] PROTHROMBIN TIME W/INR Collected: 12/11/2017 Status: F Source: [place] 3:10 PM [facility] REPOSITORY TYPE CODE TESTS RESULT OUT OF RANGE REFERENCE UNITS LAB L300.4150 11.7-14.9 SECONDS High PROTIME 18.7 LAB L300.4200 Normal INR 1.6 Performed By: #### L300.3900 #### [facility] Laboratory [address], [address] DISCHARGE SUMMARY Observed: 12/11/2017 Status: F Source: [place] 2:54 PM [facility] REPOSITORY [facility] Medical Records Department [address] [address] Discharge Summary 12/11/17 1335 MR#: [id number] Acct: [id number] Name: MIKALA WILSON Rep #: [id number] : 1940 77 From: Usman Matos DO PCP: Lei Funes DO Status: ADM IN Y Location: [place] [id number] ADDENDUM by Usman Matos DO on 12/11/17 [...] Ayoub was managing his INR previously. 12/11/17 3494 <Electronically signed by Usman Matos DO> Date [...] atrial fibrillation (Chronic) Atherosclerotic heart disease of [place] coronary artery without angina pectoris (Chronic) History [...] 45 Code Visit Inpatient E AND M: 83360 Disch Hosp 12/11/17 1341 <Electronically signed by Usman Matos DO> Date Usman Matos DO Cosigner Signature (if applicable): Date CC: Daniel Phillips MD; Abhishek Ayoub MD; Usman Matos DO; Lei Funes DO Signed DISCHARGE INSTRUCTION Observed: 12/11/2017 Status: F Source: [place] 1:35 PM [facility] REPOSITORY [facility] Medical Records Department [address] [place] [address] Instructions for Home/Discharge Instructions 12/11/17 1332 MR#: [id number] Acct: [id number] Name: MIKALA WILSON Rep #: [id number] : 1940 77 From: Usman Matos DO [...] 12/11/2017 Status: F Source: [place] 11:13 AM [facility] REPOSITORY TYPE CODE TESTS RESULT OUT OF REFERENCE UNITS RANGE LAB L501.080 70-110 mg/dL High BEDSIDE GLU 238 Result Comment: MANAGEMENT OF PATIENT CARE PER NURSING PROTOCOL Performed By: #### L501.080 #### [facility] Laboratory Point of Care [address] [place] [address] BEDSIDE GLUCOSE Collected: 12/11/2017 Status: F Source: [place] 6:57 AM [facility] REPOSITORY TYPE CODE TESTS RESULT OUT OF REFERENCE UNITS RANGE LAB L501.080 70-110 mg/dL High BEDSIDE GLU 159 Result Comment: MANAGEMENT OF PATIENT CARE PER NURSING PROTOCOL Performed By: #### L501.080 #### [facility] Laboratory Point of Care [address] [place] [address] BASIC METABOLIC Collected: 12/11/2017 Status: F Source: [place] PROFILE (BMP) 5:40 AM [facility] REPOSITORY TYPE CODE TESTS RESULT OUT OF [...] GAP 10 Performed By: #### L500.2500 #### [facility] Laboratory [address] [place], [address] CBC W/DIFF, AUTOMATED Collected: 12/11/2017 Status: F Source: [place] 5:40 AM [facility] REPOSITORY TYPE CODE TESTS RESULT OUT OF [...] COMMENT SCANNED Performed By: #### L100.0100 #### [facility] Laboratory [address] [place], [address] BEDSIDE GLUCOSE Collected: 12/10/2017 Status: F Source: [place] 10:08 PM [facility] REPOSITORY TYPE CODE TESTS RESULT OUT OF REFERENCE UNITS RANGE LAB L501.080 70-110 mg/dL High BEDSIDE GLU 370 Result Comment: MANAGEMENT OF PATIENT CARE PER NURSING PROTOCOL Performed By: #### L501.080 #### [facility] Laboratory Point of Care [address] [place] [address] BEDSIDE GLUCOSE Collected: 12/10/2017 Status: F Source: [place] 5:56 PM [facility] REPOSITORY TYPE CODE TESTS RESULT OUT OF REFERENCE UNITS RANGE LAB L501.080 70-110 mg/dL High BEDSIDE GLU 382 Result Comment: MANAGEMENT OF PATIENT CARE PER NURSING PROTOCOL Performed By: #### L501.080 #### [facility] Laboratory Point of Care [address] [place] [address] BEDSIDE GLUCOSE Collected: 12/10/2017 Status: F Source: [place] 11:17 AM [facility] REPOSITORY TYPE CODE TESTS RESULT OUT OF REFERENCE UNITS RANGE LAB L501.080 70-110 mg/dL High BEDSIDE GLU 358 Result Comment: MANAGEMENT OF PATIENT CARE PER NURSING PROTOCOL Performed By: #### L501.080 #### [facility] Laboratory Point of Care [address] [place] [address] BEDSIDE GLUCOSE Collected: 12/10/2017 Status: F Source: [place] 6:48 AM [facility] REPOSITORY TYPE CODE TESTS RESULT OUT OF REFERENCE UNITS RANGE LAB L501.080 70-110 mg/dL High BEDSIDE GLU 240 Result Comment: MANAGEMENT OF PATIENT CARE PER NURSING PROTOCOL Performed By: #### L501.080 #### [facility] Laboratory Point of Care [address] [place] [address] BASIC METABOLIC Collected: 12/10/2017 Status: F Source: [place] PROFILE (BMP) 5:50 AM [facility] REPOSITORY TYPE CODE TESTS RESULT OUT OF [...] GAP 10 Performed By: #### L500.2500 #### [facility] Laboratory [address] [facility] [place], [address] CONSULTATION Observed: 12/10/2017 Status: F Source: [place] 5:29 AM [facility] REPOSITORY [facility] Medical Records Department [address] [place] [address] Consultation 12/09/17 1146 MR#: [id number] Acct: [id number] Name: MIKALA WILSON Rep #: [id number] : 1940 77 From: Daniel Phillips MD PCP: Lei Funes DO Status: ADM IN Y [facility] Problem List (1) Severe sepsis Status: Acute [...] Status: Chronic (11) Atherosclerotic heart disease of [place] coronary artery without angina pectoris Status: Chronic Qualifiers: [place] vs. transplanted heart: unspecified whether [place] or transplanted heart Qualified Code(s): I25.10 - Atherosclerotic heart disease of [place] coronary artery without angina pectoris (12) History of maze procedure Status: Chronic Comment: mitral valve repair and MAZE procedure 01/24/[address] Tolliver @ [facility] (13) Physical debility Status: Chronic (14) Hypokalemia Status: Chronic (15) Pancytopenia Status: Chronic (16) Status post mitral valve repair Status: Chronic Comment: mitral valve repair and MAZE procedure 01/24/[address] Tolliver @ [facility] (17) Status post aortic valve replacement with bioprosthetic valve Status: Chronic Comment: Aortic Valve Replacement w/ 23- mm Jay-Aragon pericardial valve (18) DM2 (diabetes mellitus, type 2) Status: Chronic Qualifiers: Diabetes mellitus prison insulin use: without prison use Diabetes mellitus complication status: with unspecified [...] (Last Updated 09/16/17 @ 19:52 by Gilma Phelsp) Sick sinus syndrome (Chronic) CLEMENT (obstructive sleep apnea) (Chronic) Congestive heart failure, unspecified (Chronic) Other secondary pulmonary hypertension (Chronic) Nonrheumatic mitral valve regurgitation (Chronic) Nonrheumatic aortic (valve) stenosis (Chronic) Nonrheumatic aortic (valve) insufficiency (Chronic) Carotid artery stenosis (Chronic) Chronic atrial fibrillation (Chronic) Atherosclerotic heart disease of [place] coronary artery without angina pectoris (Chronic) History [...] fibrillation (Chronic) I48.2 Atherosclerotic heart disease of [place] coronary artery without angina pectoris (Chronic) I25.10 [...] 12/09/17 10:00 12/09/17 11:04 12/09/17 10:00 12/09/17 10:12/09/17 10:00 Oxygen Flow Rate (L/min) 2 Oxygen Delivery Method Nasal Cannula Weight: 97.1 kg Body Mass Index (BMI) 32.8 Intake and Output for Last 24 Hours Intake Total 3760 / 3760 457.8 / 457.8 Balance 3760 / 3760 457.8 / 457.8 Microbiology [...] steroids. Code Visit Inpatient E AND M: 21348 Init Hosp L3 12/10/17 0529 <Electronically signed by Daniel Phillips MD> Date Daniel Phillips MD Cosigner Signature (if applicable): Date CC: Daniel Phillips MD; Lei Funes DO Signed BEDSIDE GLUCOSE Collected: 12/09/2017 Status: F Source: [place] 10:10 PM [facility] REPOSITORY TYPE CODE TESTS RESULT OUT OF REFERENCE UNITS RANGE LAB L501.080 70-110 mg/dL High BEDSIDE GLU 268 Result Comment: MANAGEMENT OF PATIENT CARE PER NURSING PROTOCOL Performed By: #### L501.080 #### [facility] Laboratory Point of Care [address] [place] [address] BEDSIDE GLUCOSE Collected: 12/09/2017 Status: F Source: [place] 3:58 PM [facility] REPOSITORY TYPE CODE TESTS RESULT OUT OF REFERENCE UNITS RANGE LAB L501.080 70-110 mg/dL High BEDSIDE GLU 290 Result Comment: MANAGEMENT OF PATIENT CARE PER NURSING PROTOCOL Performed By: #### L501.080 #### [facility] Laboratory Point of Care [address] [place] [address] ECHOCARDIOGRAM COMPLETE Observed: 12/09/2017 Status: F Source: [place] 3:38 PM [facility] REPOSITORY [facility] Cardiovascular Services [address] [place] [address] Echo Complete 12/09/17 0932 MR#: [id number] Acct: [id number] Name: MIKALA WILSON Rep #: [id number] : 1940 77 From: Marcos Tucker MD Attending Dr: Usman Matos DO Status: ADM IN Ordering Dr: Rica Read Date: 12/08/17 Location: [facility] Sex: M C Admitted: 12/07/17 Version 2 [...] Physician: Lei Funes Performed By: Leticia Matos, ADRIANE, RVT 12/09/17 1538 Date Marcos Tucker MD CC: Rica Read; Usman Matos DO; Lei Funes DO Date Dictated: 12/09/1732 Date Transcribed: 12/09/171537 Communications Department Chairperson: Signed 12 LEAD ELECTROCARDIOGRAM Observed: 12/09/2017 Status: F Source: [place] 1:15 PM [facility] REPOSITORY [facility] Cardiovascular Services [address] [place] [address] 12 Lead EKG 12/07/17 1850 MR#: [id number] Acct: [id number] Name: MIKALA WILSON Rep #: [id number] : 1940 77 From: Jesse Luque MD Attending Dr: Usman Matos DO Status: ADM IN Ordering Dr: Haile Quiles MD Date: 12/07/17 Location: [facility] Sex: M C Admitted: 12/07/17 Test Reason [...] block Abnormal ECG Confirmed by JESSE LUQUE ([id number]), newspaper editor managing IZZY KEMP ([id number]) on 12/09/2017 1:15:24 PM Referred By: DARA Confirmed By:JESSE LUQUE 12/09/17 1315 Date Jesse Luque MD CC: Usman Matos DO; Lei Funes DO; Haile Quiles MD Signed BEDSIDE GLUCOSE Collected: 12/09/2017 Status: F Source: [place] 11:07 AM [facility] REPOSITORY TYPE CODE TESTS RESULT OUT OF REFERENCE UNITS RANGE LAB L501.080 70-110 mg/dL High BEDSIDE GLU 150 Result Comment: MANAGEMENT OF PATIENT CARE PER NURSING PROTOCOL Performed By: #### L501.080 #### [facility] Laboratory Point of Care [address] [place] [address] BEDSIDE GLUCOSE Collected: 12/09/2017 Status: F Source: [place] 7:34 AM [facility] REPOSITORY TYPE CODE TESTS RESULT OUT OF RANGE REFERENCE UNITS LAB L501.080 70-110 mg/dL Normal BEDSIDE GLU 100 Result Comment: MANAGEMENT OF PATIENT CARE PER NURSING PROTOCOL Performed By: #### L501.080 #### [facility] Laboratory Point of Care [address] [place] [address] BEDSIDE GLUCOSE Collected: 12/09/2017 Status: F Source: [place] 6:49 AM [facility] REPOSITORY TYPE CODE TESTS RESULT OUT OF REFERENCE UNITS RANGE LAB L501.080 70-110 mg/dL Low BEDSIDE GLU 67 Result Comment: MANAGEMENT OF PATIENT CARE PER NURSING PROTOCOL Performed By: #### L501.080 #### [facility] Point of Care [address] [place] [address] CBC W/DIFF, AUTOMATED Collected: 12/09/2017 Status: F Source: [place] 6:14 AM [facility] REPOSITORY TYPE CODE TESTS RESULT OUT OF [...] - LYMPHOPENIA. Performed By: #### L100.0100 #### [facility] [address] [facility]. [place], [place], [address] BASIC METABOLIC Collected: 12/09/2017 Status: F Source: [place] PROFILE (BMP) 6:14 AM [facility] REPOSITORY TYPE CODE TESTS RESULT OUT OF [...] GAP 11 Performed By: #### L500.2500 #### [facility] [address] [place], [place], [address] BEDSIDE GLUCOSE Collected: 12/08/2017 Status: F Source: [place] 10:05 PM [facility] REPOSITORY TYPE CODE TESTS RESULT OUT OF REFERENCE UNITS RANGE LAB L501.080 70-110 mg/dL High BEDSIDE GLU 177 Result Comment: MANAGEMENT OF PATIENT CARE PER NURSING PROTOCOL Performed By: #### L501.080 #### [facility] Point of Care [address] [place], [place] [address] BEDSIDE GLUCOSE Collected: 12/08/2017 Status: F Source: [place] 4:33 PM [facility] REPOSITORY TYPE CODE TESTS RESULT OUT OF RANGE REFERENCE UNITS LAB L501.080 70-110 mg/dL Normal BEDSIDE GLU 110 Result Comment: MANAGEMENT OF PATIENT CARE PER NURSING PROTOCOL Performed By: #### L501.080 #### [facility] Point of Care [address] [place], [place] [address] BEDSIDE GLUCOSE Collected: 12/08/2017 Status: F Source: [place] 11:21 AM [facility] REPOSITORY TYPE CODE TESTS RESULT OUT OF REFERENCE UNITS RANGE LAB L501.080 70-110 mg/dL High BEDSIDE GLU 224 Result Comment: MANAGEMENT OF PATIENT CARE PER NURSING PROTOCOL Performed By: #### L501.080 #### [facility] Point of Care [address] [place], [place] [address] Observed: 12/08/2017 Status: F Source: [place] LEGIONELLA ANTIGEN 7:53 AM [facility] URINE REPOSITORY Send Results To: PCU Has pt arrived? Y Specimen Source: URINE, CLEAN CATCH Legionella, UR Legionella Antigen result interpretation: Negative Presumptive negative for Legionella pneumophila serogroup 1 antigen in urine, suggesting no recent or current infection. Legionella Ag, Urine Negative (See interpretation below) Performed By: #### M300.4500 #### [facility] [address] [place], [place], [address] STREP Observed: 12/08/2017 Status: F Source: [place] PNEUMONIAE ANTIG(UR,CSF) 7:53 AM [facility] REPOSITORY Send Results To: PCU Has pt [...] interpretation below) Performed By: #### M300.4600 #### [address], [address] Observed: 12/08/2017 Status: F Source: [place] CULTURE, SPUTUM 7:53 AM [facility] REPOSITORY Send Results To: U Has pt arrived? Y Gram Stain * [...] aureus isolated. Performed By: #### M100.0800 #### [facility] [address] [place] [address]. [place], [place], [address] BEDSIDE GLUCOSE Collected: 12/08/2017 Status: F Source: [place] 7:41 AM [facility] REPOSITORY TYPE CODE TESTS RESULT OUT OF RANGE REFERENCE UNITS LAB L501.080 70-110 mg/dL Normal BEDSIDE GLU 93 Result Comment: MANAGEMENT OF PATIENT CARE PER NURSING PROTOCOL Performed By: #### L501.080 #### [facility] Point of Care [address] [facility]. [place], [place] [address] BEDSIDE GLUCOSE Collected: 12/08/2017 Status: F Source: [place] 7:14 AM [facility] REPOSITORY TYPE CODE TESTS RESULT OUT OF REFERENCE UNITS RANGE LAB L501.080 70-110 mg/dL Low BEDSIDE GLU 66 Result Comment: MANAGEMENT OF PATIENT CARE PER NURSING PROTOCOL Performed By: #### L501.080 #### [facility] Point of Care [address] [facility] [place] [address] BEDSIDE GLUCOSE Collected: 12/08/2017 Status: F Source: [place] 6:59 AM [facility] REPOSITORY TYPE CODE TESTS RESULT OUT OF REFERENCE UNITS RANGE LAB L501.080 70-110 mg/dL Low BEDSIDE GLU 58 Result Comment: MANAGEMENT OF PATIENT CARE PER NURSING PROTOCOL Performed By: #### L501.080 #### [facility] Point of Care [address] [place], [place] [address] LACTIC ACID Collected: 12/08/2017 Status: F Source: [place] 5:18 AM [facility] REPOSITORY Order Comment: Yes/No query for Sepsis Lactate Rule Y TYPE CODE TESTS RESULT OUT OF RANGE REFERENCE UNITS LAB L503.6005 0.4-2.0 mmol/L Normal LACTIC ACID 1.4 Performed By: #### L503.6005 #### [facility] [address] [place], [address] TROPONIN-I Collected: 12/08/2017 Status: F Source: [place] 5:18 AM [facility] REPOSITORY Order Comment: 'TROP' Serial specimen #1, #2 or #3: 3 TYPE CODE TESTS RESULT OUT OF RANGE REFERENCE UNITS LAB L501.4010 <0.045 ng/mL High 0.050 TROPONIN-I Result Comment: TROPONIN-I EXPECTED VALUES <0.045 Negative 0.045 - 0.590 Consistent with Cardiac Damage > OR = 0.600 Critical Value Not every elevated troponin is indicative of TN. These values should be used with clinical judgement in examining the patient's clinical picture for diagnosis. To establish a diagnosis of TN versus myocardial injury, there must be a demonstrated rise and/or fall in the troponin values, in addition to ischemic symptoms, EKG changes, new regional wall motion abnormality, and/or angiographical evidence. PLEASE NOTE: REFERENCE RANGES EDITED 17 Performed By: #### L501.4010 #### [facility] [address] [place], [place], [address] TROPONIN-I Collected: 12/08/2017 Status: F Source: [place] 1:44 AM [facility] REPOSITORY Order Comment: 'TROP' Serial specimen #1, #2 or #3: 2 TYPE CODE TESTS RESULT OUT OF RANGE REFERENCE UNITS LAB L501.4010 <0.045 ng/mL High 0.056 TROPONIN-I Result Comment: TROPONIN-I EXPECTED VALUES <0.045 Negative 0.045 - 0.590 Consistent with Cardiac Damage > OR = 0.600 Critical Value Not every elevated troponin is indicative of TN. These values should be used with clinical judgement in examining the patient's clinical picture for diagnosis. To establish a diagnosis of TN versus myocardial injury, there must be a demonstrated rise and/or fall in the troponin values, in addition to ischemic symptoms, EKG changes, new regional wall motion abnormality, and/or angiographical evidence. PLEASE NOTE: REFERENCE RANGES EDITED 17 Performed By: #### L501.4010 #### [facility] [address] [facility] [address] [place], [place], [address] BLOOD GASES BY CPS Collected: 12/08/2017 Status: F Source: [place] 12:56 AM [facility] REPOSITORY TYPE CODE TESTS RESULT OUT OF [...] ISTAT 98 Performed By: #### L9000.0800 #### [facility] Point of Care [address] [place], [place] [address] EMERGENCY DEPARTMENT Observed: 12/08/2017 Status: F Source: [place] SUMMARY 12:24 AM [facility] REPOSITORY [facility] Medical Records Department [address] [place] [address] Emergency Department Summary 12/07/17 1845 MR#: [id number] Acct: [id number] Name: MIKALA WILSON Rep #: [id number] : 1940 77 From: Haile Quiles MD [...] 30 minutes. This note was generated with [employer] dictation software. It may contain incorrect words, [...] your Primary Care Provider. Call [facility] ([phone]) or report to the closest Emergency Room. Call 911 if necessary. 12/08/17 0024 <Electronically signed by Haile Quiles MD> Date Haile Quiles MD Cosigner Signature (If Indicated): Date CC: Lei Funes DO BEDSIDE GLUCOSE Collected: 12/08/2017 Status: F Source: [place] 12:02 AM [facility] REPOSITORY TYPE CODE TESTS RESULT OUT OF REFERENCE UNITS RANGE LAB L501.080 70-110 mg/dL High BEDSIDE GLU 119 Result Comment: MANAGEMENT OF PATIENT CARE PER NURSING PROTOCOL Performed By: #### L501.080 #### [facility] Point of Care [address] [facility]. [place], [place] [address] Observed: 12/07/2017 Status: F Source: [place] RESPIRATORY PANEL 11:34 PM [facility] MOLECULAR REPOSITORY RP PANEL ADENOVIRUS Not Detected [...] acid amplification Performed By: #### M100.638 #### [facility] [address] [facility]. [place], [place], [address] TROPONIN-I Collected: 12/07/2017 Status: F Source: [place] 11:25 PM [facility] REPOSITORY Order Comment: 'TROP' Serial specimen #1, #2 or #3: 1 TYPE CODE TESTS RESULT OUT OF RANGE REFERENCE UNITS LAB L501.4010 <0.045 ng/mL High 0.048 TROPONIN-I Result Comment: TROPONIN-I EXPECTED VALUES <0.045 Negative 0.045 - 0.590 Consistent with Cardiac Damage > OR = 0.600 Critical Value Not every elevated troponin is indicative of TN. These values should be used with clinical judgement in examining the patient's clinical picture for diagnosis. To establish a diagnosis of TN versus myocardial injury, there must be a demonstrated rise and/or fall in the troponin values, in addition to ischemic symptoms, EKG changes, new regional wall motion abnormality, and/or angiographical evidence. PLEASE NOTE: REFERENCE RANGES EDITED 17 Performed By: #### L501.4010, L501.5200 #### [facility] [address] [facility] [address] [place], [place], [address] MAGNESIUM Collected: 12/07/2017 Status: F Source: [place] 11:25 PM [facility] REPOSITORY Order Comment: 'TROP' Serial specimen #1, #2 or #3: 1 TYPE CODE TESTS RESULT OUT OF RANGE REFERENCE UNITS LAB L501.5200 1.6-2.6 mg/dL Normal MG 2.1 Performed By: #### L501.4010, L501.5200 #### [facility] [address] [place], [address] LACTIC ACID Collected: 12/07/2017 Status: F Source: [place] 11:25 PM [facility] REPOSITORY TYPE CODE TESTS RESULT OUT OF REFERENCE UNITS RANGE LAB L503.6005 0.4-2.0 mmol/L High LACTIC ACID 2.2 Result Comment: Critical Result(s) Called at: 23:59:08 12/07/2017 by: MIKE GOODE RN PCU Performed By: #### L503.6005 #### [facility] [place], [address] HISTORY AND PHYSICAL Observed: 12/07/2017 Status: F Source: [place] EXAM 9:50 PM [facility] REPOSITORY [facility] Medical Records Department [address] [place] [address] History and Physical 12/07/172 MR#: [id number] Acct: [id number] Name: MIKALA WILSON Rep #: [id number] : 1940 77 From: Rica Read PCP: [...] Status: Chronic (8) Atherosclerotic heart disease of [place] coronary artery without angina pectoris Status: Chronic Qualifiers: [place] vs. transplanted heart: unspecified whether [place] or transplanted heart Qualified Code(s): I25.10 - Atherosclerotic heart disease of [place] coronary artery without angina pectoris (9) History of maze procedure Status: Chronic Comment: mitral valve repair and MAZE procedure 01/24/[address] Tolliver @ [facility] (10) Duodenal ulcer Status: Chronic (11) Hyperlipidemia Status: Chronic Qualifiers: Hyperlipidemia type: pure hypercholesterolemia Qualified Code(s): E78.00 - Pure hypercholesterolemia, unspecified; E78.0 - Pure hypercholesterolemia (12) Status post placement of cardiac pacemaker Status: Chronic Comment: Permanent pacemaker placement 02/02/16 @ [facility] (13) Status post mitral valve repair Status: Chronic Comment: mitral valve repair and MAZE procedure 01/24/[address] Tolliver @ [facility] (14) Status post aortic valve replacement with bioprosthetic valve Status: Chronic Comment: Aortic Valve Replacement w/ 23- mm Jay-Aragon pericardial valve (15) DM2 (diabetes mellitus, type 2) Status: Chronic Qualifiers: Diabetes mellitus prison insulin use: without terminal superintendent use Diabetes mellitus complication status: with unspecified [...] Anxiety and Depression who presents to the [facility] ED on 12/07/17 with history of [...] atrial fibrillation (Chronic) Atherosclerotic heart disease of [place] coronary artery without angina pectoris (Chronic) History [...] fibrillation (Chronic) I48.2 Atherosclerotic heart disease of [place] coronary artery without angina pectoris (Chronic) I25.10 [...] Anxiety and Depression who presents to the [facility] ED on 12/07/17 with history of [...] minutes. Code Visit Inpatient E AND M: 13802 Init Hosp L3 Procedures: 94283 Advncd Care Plan 30 Min 12/07/17 2150 <Electronically signed by Rica Read > Date Rica Read Cosigner Signature: Date (if applicable) CC: Rica Read; Lei Funes DO Signed CTA CHEST W/WO Observed: 12/07/2017 Status: F Source: [place] CONTRAST 7:47 PM [facility] REPOSITORY [facility] Imaging Services [address] [place] [address] CTA Chest W/WO Contrast MR#: [id number] Acct: [id number] Name: MIKALA WILSON Rep #: [id number] : 1940 M 77 From: Carmencita Le MD PCP: Lei Funes DO Status: REG ER Study: CTA Chest W/WO Contrast Date of Exam: 12/07/17 Exam# [id number] Ordering Dr: Haile Quiles MD STUDY: CTA [...] CC: Lei Funes DO; Haile Quiles MD Communications Department Chairperson: Signed CBC W/DIFF, AUTOMATED Collected: 12/07/2017 Status: F Source: [place] 6:45 PM [facility] REPOSITORY TYPE CODE TESTS RESULT OUT OF [...] CELL MORPH Performed By: #### L100.0100 #### [facility] [address] [place], [place], [address] BASIC METABOLIC Collected: 12/07/2017 Status: F Source: [place] PROFILE (BMP) 6:45 PM [facility] REPOSITORY TYPE CODE TESTS RESULT OUT OF [...] 13 Performed By: #### L500.2500, L501.4010 #### [facility] [address] [facility]. [place], [place], [address] TROPONIN-I Collected: 12/07/2017 Status: F Source: [place] 6:45 PM [facility] REPOSITORY TYPE CODE TESTS RESULT OUT OF RANGE REFERENCE UNITS LAB L501.4010 <0.045 ng/mL Normal 0.041 TROPONIN-I Result Comment: TROPONIN-I EXPECTED VALUES <0.045 Negative 0.045 - 0.590 Consistent with Cardiac Damage > OR = 0.600 Critical Value Not every elevated troponin is indicative of TN. These values should be used with clinical judgement in examining the patient's clinical picture for diagnosis. To establish a diagnosis of TN versus myocardial injury, there must be a demonstrated rise and/or fall in the troponin values, in addition to ischemic symptoms, EKG changes, new regional wall motion abnormality, and/or angiographical evidence. PLEASE NOTE: REFERENCE RANGES EDITED 17 Performed By: #### L500.2500, L501.4010 #### [facility] [address] [facility]. [place], [place], [address] LACTIC ACID Collected: 12/07/2017 Status: F Source: [place] 6:45 PM [facility] REPOSITORY Order Comment: Yes/No query for Sepsis Lactate Rule Y TYPE CODE TESTS RESULT OUT OF REFERENCE UNITS RANGE LAB L503.6005 0.4-2.0 mmol/L High LACTIC ACID 3.8 Result Comment: Critical Result(s) Called Roberto ACOSTA at: 19:42:21 12/07/2017 by: LILLIAM CALLAHAN Performed By: #### L503.6005 #### [facility] [address] [place], [address] Observed: 12/07/2017 Status: F Source: [place] CULTURE, BLOOD (WB) 6:45 PM [facility] REPOSITORY BC No growth in 5 days. Performed By: #### M200.1000 #### [facility] [address] [place], [place], [address] CHEST PA AND LATERAL Observed: 12/07/2017 Status: F Source: [place] 6:41 PM [facility] REPOSITORY [facility] Imaging Services [address] [place] [address] Chest PA and Lateral MR#: [id number] Acct: [id number] Name: MIKALA WILSON Rep #: [id number] : 1940 M 77 From: Carmencita Le MD PCP: Lei Funes DO Status: REG Study: Chest PA and Lateral Date of Exam: 12/07/17 Exam# [id number] Ordering Dr: Haile Quiles MD STUDY: X-RAY [...] CC: Lei Funes DO; Haile Quiles MD Communications Department Chairperson: Signed Observed: 12/07/2017 Status: F Source: [place] CULTURE, BLOOD (WB) 6:28 PM [facility] REPOSITORY BC No growth in 5 days. Performed By: #### M200.1000 #### [facility] [address] [place], [place], [address] HEMOGLOBIN A1C Collected: 10/27/2017 Status: F Source: [place] 8:01 AM [facility] REPOSITORY Order Comment: DR FUNES ORDERED A1C HECAB MIACRE CMP DANIAL [facility] ORDERED LIPID LIVER TYPE CODE TESTS RESULT OUT OF RANGE REFERENCE UNITS LAB L501.9985 4.2-6.3 % High HGB A1C 8.2 Performed By: #### L501.9985 #### [facility] [address] [place], [place], [address] MICROALB:CREAT Collected: 10/27/2017 Status: F Source: [place] RATIO,RANDOM UR 8:01 AM [facility] REPOSITORY Order Comment: DR FUNES ORDERED A1C HECAB MIACRE CMP DANIAL [facility] ORDERED LIPID LIVER TYPE CODE TESTS RESULT OUT OF RANGE REFERENCE UNITS LAB L501.1200 NO RANGE EST. mg/dL Normal UR CREAT 138.00 LAB L502.0500 NO RANGE EST. mg/L Normal 477.0 MICROALBUMIN ,UR LAB L502.0600 <30 mg/g CRE mg/g CRE High 345.7 MALB:CREAT Performed By: #### L502.0250 #### [facility] [address] [place], [address] COMPREHENSIVE METABOLIC Collected: 10/27/2017 Status: F Source: [place] PROFIL 8:01 AM [facility] REPOSITORY Order Comment: DR FUNES ORDERED A1C HECAB MIACRE CMP [facility] ORDERED LIPID LIVER TYPE CODE TESTS [...] Performed By: #### L500.4050, L500.4100, L501.4700 #### [facility], [address] LIPID PROFILE Collected: 10/27/2017 Status: F Source: [place] 8:01 AM [facility] REPOSITORY Order Comment: DR FUNES ORDERED A1C HECAB MIACRE CMP DANIAL [facility] ORDERED LIPID LIVER TYPE CODE TESTS RESULT [...] Performed By: #### L500.4050, L500.4100, L501.4700 #### [facility] [address] [place], [place], [address] BILIRUBIN, DIRECT Collected: 10/27/2017 Status: F Source: [place] 8:01 [facility] REPOSITORY Order Comment: DR FUNES ORDERED A1C HECAB MIACRE CMP DANIAL [facility] ORDERED LIPID LIVER TYPE CODE TESTS RESULT OUT OF RANGE REFERENCE UNITS LAB L501.4700 0.00-0.30 mg/dL Normal D BILI 0.22 Performed By: #### L500.4050, L500.4100, L501.4700 #### [facility] [address] [place], [place], [address] HEPATITIS C ANTIBODIES Collected: 10/27/2017 Status: F Source: [place] 8:01 [facility] REPOSITORY Order Comment: DR FUNES ORDERED A1C HECAB MIACRE CMP [facility] ORDERED LIPID LIVER TYPE CODE TESTS RESULT OUT OF RANGE REFERENCE UNITS LAB L3100.0650 0.0-0.9 s/co ratio Normal HEP C AB 0.1 Result Comment: Negative: < 0.8 Indeterminate: 0.8 - 0.9 Positive: > 0.9 The CDC recommends that a positive HCV antibody result be followed up with a HCV Nucleic Acid Amplification test (045070). Performed at: [facility] [id number] Food And Beverage Coordinator: Jj Espinoza PhD, Phone: [phone] Performed By: #### L3100.0625 #### [facility] (refer to report for specific site) refer to report for address and phone number PSA,TOTAL- DIAGNOSTIC Collected: 09/29/2017 Status: F Source: [place] 1:27 PM [facility] REPOSITORY TYPE CODE TESTS RESULT OUT OF RANGE REFERENCE UNITS LAB L501.9940 0.0-4.0 ng/mL PSA, Normal DIAGNOSTIC 1.77 Result Comment: This test was performed using the TPSA assay method for the [employer] chemistry system. Values obtained with different assay methods cannot be used interchangably. When changing PSA assays in the course of monitoring a patient, additional sequential testing should be carried out to confirm baseline values. Performed By: #### L501.9940 #### [facility] [address] [place], [address] PACEMAKER CHECK Observed: 09/17/2017 Status: F Source: [place] 8:23 AM [facility] REPOSITORY [facility] [address] [place] [address] Pacemaker Check Date of Service: 09/16/17 1439 MR#: [id number] Acct: [id number] Name: MIKALA WILSON Rep #: [id number] : 1940 From: Gilma Phelps Age/Sex: 76/M [place] [facility] [place] Status: Signed Comments Summary Comments: Dual Chamber Pacemaker Evaluation: See attached scanned principal statistical programmer report. Interrogation shows 125 MS episodes, [...] Presenting rhythm shows Sinus Tachycardia @106 bpm. SUPERINTENDENT MARINE=0.6%. Battery longevity approx 13.5 yrs. Lead impedances, sensing and pace/sense thresholds remain stable. No parameter changes made. Counters cleared. Next f/u appt scheduled for in 6 mos. 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: [employer] Name: Adapta L Model: [id number] Serial #: [id number] Implant Date: 02/02/16 Year(s): 1 Implant Physician: IGNACIA Patient Characteristics Atrial Indication: Paroxysmal atrial fibrillation AV/Node Indication: Complete heart block (intermittent) Underlying rhythm: Sinus rhythm Pacemaker Dependent: No Device Characteristics Device: Dual Chamber Type: Pacemaker Remote Follow-Up: No Device Physical Exam Yes Incision well healed Leads Lead #1 Oil Field Laborer Lead 1: Medtronic Model Lead 1: 5076 Serial# Lead 1: [id number] Date Implanted Lead 1: 02/02/16 Position Lead 1: RA Lead #2 Oil Field Laborer Lead 2: Medtronic Model Lead 2: 5076 Serial# Lead 2: [id number] Date Implanted Lead 2: 02/02/16 Position Lead [...] fibrillation I48.0 3. Atherosclerotic heart disease of [place] coronary artery without angina pectoris I25.10 4. Congestive heart failure, unspecified I50.9 09/16/17 1953 <Electronically signed by Gilma Phelps > Date Gilma Phelps 09/17/17 0823<Electronically signed by Abhishek Ayoub MD> Cosigner Signature: Date (if applicable) Abhishek Ayoub MD CC: EMERGENCY DEPARTMENT Observed: 09/03/2017 Status: F Source: [place] SUMMARY 12:59 AM [facility] REPOSITORY [facility] Medical Records Department [address] [place] [address] Emergency Department Summary 09/02/17 1726 MR#: [id number] Acct: [id number] Name: MIKALA WILSON Rep #: [id number] : 1940 76 From: Haile Quiles MD [...] splint, fabricated. This note was generated with [employer] software. It may contain incorrect words, spelling, [...] your Primary Care Provider. Call [facility] ([phone]) or report to the closest Emergency Room. Call 911 if necessary. 09/03/17 0059 <Electronically signed by Haile Quiles MD> Date Haile Quiles MD Cosigner Signature (If Indicated): Date CC: Lei Funes DO WRIST MIN 3 VIEWS Observed: 09/02/2017 Status: F Source: [place] 4:32 PM [facility] REPOSITORY [facility] Imaging Services [facility] [place] [address] Wrist min 3 Views MR#: [id number] Acct: [id number] Name: MIKALA WILSON Rep #: [id number] : 1940 M 76 From: Leonard Harmon MD PCP: Lei Funes DO Status: PRE ER Study: Wrist min 3 Views Date of Exam: 09/02/17 Exam# [id number] Ordering Dr: Jesse Foy DO STUDY: X-RAY [...] CC: Jesse Foy DO; Lei Funes DO Communications Department Chairperson: Signed BRAIN/HEAD WITHOUT Observed: 09/02/2017 Status: F Source: [place] 4:32 PM [facility] REPOSITORY [facility] Imaging Services [address] [place] [address] 14881 Brain/Head without Contrast MR#: [id number] Acct: [id number] Name: MIKALA WILSON Rep #: [id number] : 1940 M 76 From: Leonard Harmon MD PCP: Lei Funes DO Status: PRE ER Study: Brain/Head without Contrast Date of Exam: 09/02/17 Exam# [id number] Ordering Dr: Jesse Foy DO STUDY: CT [...] CC: Jesse Foy DO; Lei Funes DO Communications Department Chairperson: Signed CARDIOLOGY VISIT Observed: 07/29/2017 Status: F Source: [place] REPORT 12:04 PM [facility] REPOSITORY [facility] [address] [place] [address] OFFICE VISIT Date of Service: 07/24/17 MR#: [id number] Acct: [id number] Name: MIKALA WILSON Rep #: [id number] : 1940 Provider: Abhishek Ayoub MD Age/Sex: 76/M [place] [facility] [place]: Signed [facility] HPI Chief Complaint: Follow-up visit. 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 Accompanied by: None Is patient [...] to 59 (55% per echo 03/04/2016 at [facility] Medical History CLEMENT (obstructive sleep apnea) (Chronic) Congestive heart failure, unspecified (Chronic) Other secondary pulmonary hypertension (Chronic) Nonrheumatic mitral valve regurgitation (Chronic) Nonrheumatic aortic (valve) stenosis (Chronic) Nonrheumatic aortic (valve) insufficiency (Chronic) Carotid artery stenosis (Chronic) Chronic atrial fibrillation (Chronic) Atherosclerotic heart disease of [place] coronary artery without angina pectoris (Chronic) Hyperlipidemia [...] repair and MAZE procedure 01/24/[address] Tolilver @ [facility] Plan He is status post mitral valve repair. His last echocardiogram had demonstrated a mean transmitral valve gradient of 9 mmHg. There was moderate mitral valve stenosis noted. At his next visit this will be repeated. 3. Status post placement of cardiac pacemaker Z95.0 Permanent pacemaker placement 02/02/16 @ [facility] Plan He is status post permanent pacemaker [...] EXT ARTERIAL Observed: 07/19/2017 Status: F Source: [facility] 6:49 PM [facility] REPOSITORY [facility] Cardiovascular Services [address] [place] [address] 07/19/17 1845 MR#: [id number] Acct: [id number] Name: MIKALA WLISON Rep #: [id number] : 1940 76 From: Tyler Frausto MD Attending Dr: Lei Funes DO Status: REG CLI Ordering Dr: Date: 07/19/17 Location: [facility] Sex: M C Admitted: Arterial Study [...] DO Date Dictated: 07/19/171844 Date Transcribed: 07/19/171844 Communications Department Chairperson: EVELINA Signed ALLERGIES ALLERGIES DATE TYPE / CODE NAME / CODE REACTION SEVERITY SOURCE 03/05/2018 Drug No Known Unknown [place] [facility] Allergy/4160 Allergies/F00 Hospital 23886(SNOMED 6677257(RXNOR Repository CT) M) ENCOUNTERS ENCOUNTERS ADMIT/DISCHARGE ACCOUNT ADMITTING ENCOUNTER LOCATION SOURCE NUMBER CLASS 04/21/2018 [id number] Ambulatory [place] 7 [facility] ing:LAB.FUTUR Repository E 04/10/2018 [id number] Ambulatory [place] 1 [facility] ing:MTLAB Repository 03/23/2018/ [id number] Ambulatory [place] 8 4 [facility] ing:MTLAB Repository 03/19/2018 [id number] Ambulatory BMSBuilding:B [place] 6 [facility] Repository 03/09/2018/ [id number] Ambulatory [place] 8 0 [facility] ing:MTLAB Repository 03/05/2018/ [id number] Ambulatory BMSBuilding:B [place] 8 6 [facility] Repository 02/23/2018 [id number] Ambulatory [place] 4 [facility] ing:MTLAB Repository 02/20/2018 [id number] Ambulatory [place] 7 [facility] ing:MTRAD Repository 02/16/2018 [id number] Ambulatory [place] 9 [facility] ing:MTLAB Repository 02/04/2018 [id number] Ambulatory [place] 6 [facility] ing:PSN Repository 02/04/2018 [id number] Ambulatory BMSBuilding:W [place] 9 [facility] Repository 02/02/2018 [id number] Ambulatory [place] 6 [facility] ing:CT Repository 01/29/2018 [id number] Ambulatory [place] 7 [facility] ing:MTLAB Repository 01/22/2018 [id number] Ambulatory [place] 7 [facility] ing:LAB Repository 01/22/2018/ [id number] Ambulatory BMSBuilding:B [place] 8 4 [facility] Repository 01/19/2018 [id number] Ambulatory [place] 0 [facility] ing:OLS.[facility] Repository C 01/12/2018 [id number] Ambulatory [place] 5 [facility] ing:OLS.[facility] Repository C 01/07/2018/ [id number] [place], Inpatient [place] 8 3 [place] Encounter [facility] ing:AP4Etsl: Repository VR054Pwf: 1 01/07/[id number] [facility], Ambulatory BMSBuilding:B [place] 7 [place] Repository 01/07/[id number] [facility], Ambulatory BMSBuilding:B [place] 2 [place] Repository 01/07/[id number] [facility], Ambulatory BMSBuilding:B [place] 0 [place] Repository 01/07/[id number] [facility], Ambulatory BMSBuilding:B [place] 2 [place] Repository 01/05/2018 [id number] Ambulatory BMSBuilding:W [place] 4 [facility] Repository 01/05/2018 [id number] [place]ulatory [place] 3 [facility]N Repository 01/01/2018 [id number] Ambulatory [place] 3 [facility] ing:MTLAB Repository 12/30/2017 [id number] Ambulatory [place] 3 [facility] ing:[facility]S Repository 12/24/2017 [id number] Ambulatory [place] 2 [facility] ing:MTLAB Repository 12/22/2017/ [id number] Ambulatory BMSBuilding:B [place] 8 1 [facility] Repository 12/17/2017 [id number] Ambulatory [place] 6 [facility] ing:LAB Repository 12/17/2017/ [id number] Ambulatory BMSBuilding:B [place] 8 3 [facility] Repository 12/07/2017/ [id number] Rica Read Inpatient [place] 8 8 Encounter [facility] ing:PCURoom: Repository YQC067Hix: 1 12/07/2017 [id number] [place], [place] Ambulatory BMSBuilding:B [place] 1 [facility] Repository 12/07/2017 [id number] [place], [place] Ambulatory BMSBuilding:B [place] 1 [facility] Repository 12/07/2017 [id number] [place], [place] Ambulatory BMSBuilding:B [place] 2 [facility] Repository 12/07/2017 [id number] [place], [place] Ambulatory BMSBuilding:B [place] 9 [facility] Repository 12/07/2017/ [id number] Ambulatory BMSBuilding:W [place] 8 5 [facility] Repository 12/07/2017/ [id number] Ambulatory BMSBuilding:W [place] 8 9 [facility] Repository 12/07/2017/ [id number] Ambulatory BMSBuilding:W [place] 8 1 [facility] Repository 12/07/2017 [id number] Ambulatory BMSBuilding:B [place] 0 [facility] Repository 10/27/2017 [id number] Ambulatory [place] 8 [facility] ing:MTLAB Repository 09/29/2017 [id number] Ambulatory [place] 6 [facility] ing:LAB.FUTUR Repository E 09/16/2017/ [id number] Ambulatory BMSBuilding:B [place] 8 6 [facility] Repository 09/02/2017/ [id number] Emergency [place] 8 9 [facility] ing:ED Repository 07/24/2017/ [id number] Ambulatory BMSBuilding:B [place] 8 6 [facility] Repository 07/14/2017 [id number] Ambulatory [place] 1 [facility] ing:CVS Repository PAYERS PAYERS ENCOUNTER GUARANTOR PAYER SUBSCRIBER SOURCE 04/21/2018 MIKALA BAJWAPLICATE Primary MIKALA VINCENTB: [place] PATIENT RECORDTel: Insurance:MEDICARE [id number] [facility] Hospital Number: Repository [id number] Date:2018-02-17 04/21/2018 Secondary MIKALA SIGLERDOB: [place] Insurance:PHYSICIAN [id number] Number: Repository [id number] Date:4719-23-02[address] [address]QJ: 04/21/2018 Tertiary NOT GIVENUNK [place] Insurance:SELF PAY [facility] Number: Effective Repository Date:2018-02-17 04/10/2018 MIKALA SIGLERDUPLICATE Primary MIKALA SIGLERDOB: [place] PATIENT RECORDTel: Insurance:MEDICARE [id number] Community [facility] Hospital Number: Repository [id number] Date:2018-03-23 04/10/2018 Secondary MIKALA SIGLERDOB: [place] Insurance:PHYSICIAN [id number] Hospital Number: Repository [id number] Date:9759-66-63MN [address] [address]GA: 04/10/2018 Tertiary NOT GIVENUNK [place] Insurance:SELF PAY [facility] Number: Effective Repository Date:2018-04-06 03/23/2018 MIKALA [id number] Primary MIKALA [address] Insurance:MEDICARE SIGLERDOB: [place] [facility] [id number] Hospital [address]Cwj: (330) Number: Repository [phone] () [id number] Date:2018-03-23 03/23/2018 Secondary MIKALA Job [place] Insurance:PHYSICIAN [facility]ERDOB: [facility] [id number] Hospital Number: Repository [id number] Date:6773-82-79CB[address] [address]QY: 03/23/2018 Tertiary NOT GIVENUNK [place] Insurance:SELF PAY [facility] Number: Effective Repository Date:2018-03-23 03/19/2018 MIKALA H [id number] Primary MIKALA H [place] [address] Insurance:MEDICARE SIGLERDOB: [place] PART A BPolicy [id number] Hospital [address]Cdk: (330) Number: Repository [phone] () [id number] Date:2018-03-19 03/19/2018 Secondary MIKALA SIGLERDOB: [place] Insurance:PHYSICIAN [id number] [facility] Number: Repository [id number] Date:9993-11-57GV [address] [address]WW: 03/19/2018 Tertiary NOT GIVENUNK [place] Insurance:SELF PAY [facility] Number: Effective Repository Date:2018-03-19 03/09/2018 MIKALA Kaiser [id number] Primary MIKALA Job [place] [address] Insurance:MEDICARE SIGLERDOB: [place] PART A olicy [id number] Hospital [address]Gbx: (330) Number: Repository [phone] () [id number] Date:2018-03-09 03/09/2018 Secondary MIKALA H [place] Insurance:PHYSICIAN SIGLERDOB: [facility] [id number] Hospital Number: Repository [id number] Date:2636-20-14IZ [address] [address]FL: 03/09/2018 Tertiary NOT GIVENUNK [place] Insurance:SELF PAY [facility] Number: Effective Repository Date:2018-03-09 03/05/2018 MIKALA Job [id number] Primary MIKALA Job [place] [address] Insurance:MEDICARE SIGLERDOB: [place] PART A olicy [id number] Hospital [address]Mub: (330) Number: Repository [phone] () [id number] Date:2018-01-30 03/05/2018 Secondary MIKALA H [place] Insurance:PHYSICIAN SIGLERDOB: [facility] MUTUAL INS COPolicy [id number] Hospital Number: Repository [id number] Date:7766-98-24IB [address] [place] [address]JW: 03/05/2018 Tertiary NOT GIVENUNK [place] Insurance:SELF PAY [facility] Number: Effective Repository Date:2018-01-30 02/23/2018 MIKALA [id number] Primary MIKALA [place]man [address] Insurance:MEDICARE SIGLERDOB: [place] PART A olicy [id number] Hospital [address]Tdk: (330) Number: Repository [phone] () [id number] Date:2018-02-23 02/23/2018 Secondary MIKALA Job [place] Insurance:PHYSICIAN SIGLERDOB: Community MUTUAL INS COPolicy [id number] Hospital Number: Repository [id number] Date:6909-86-07MA [address] [address]VX: 02/23/2018 Tertiary NOT GIVENUNK [place] Insurance:SELF PAY [facility] Number: Effective Repository Date:2018-02-23 02/20/2018 MIKALA [id number] Primary MIKALA Thur[place] [address] Insurance:MEDICARE SIGLERDOB: [place] PART A olicy [id number] Hospital [address]Plw: (330) Number: Repository [phone] () [id number] Date:2018-02-20 02/20/2018 Secondary MIKALA Job [place] Insurance:PHYSICIAN SIGLERDOB: Community MUTUAL INS COPolicy [id number] Hospital Number: Repository [id number] Date:2269-63-85OS [address] [address]ZL: 02/20/2018 Tertiary NOT GIVENUNK [place] Insurance:SELF PAY [facility] Number: Effective Repository Date:2018-02-20 02/16/2018 MIKALA [id number] Primary MIKALA Job [place] [address] Insurance:MEDICARE SIGLERDOB: [place] PART A olic [id number] Hospital [address]Ffd: (330) Number: Repository [phone] () [id number] Date:2018-02-16 02/16/2018 Secondary MIKALA Job [place] Insurance:PHYSICIAN SIGLERDOB: Community [facility] INS [facility] [id number] Hospital Number: Repository [id number] Date:5548-15-61TA [address] [address]NI: 02/16/2018 Tertiary NOT GIVENUNK [place] Insurance:SELF PAY [facility] Number: Effective Repository Date:2018-02-16 02/04/2018 MIKALA Job [id number] Primary MIKALA Job [place] [address] Insurance:MEDICARE SIGLERDOB: [place] [facility] [id number] Hospital [address]Msh: (330) Number: Repository [phone] () [id number] Date:2017-12-22 02/04/2018 Secondary MIKALA H [place] Insurance:PHYSICIAN SIGLERDOB: [facility] [id number] Hospital Number: Repository [id number] Date:2480-35-21QV[address] [address]FU: 02/04/2018 Tertiary NOT GIVENUNK [place] Insurance:SELF PAY [facility] Number: Effective Repository Date:2017-12-22 02/04/2018 MIKALA Job [id number] Primary MIKALA Job [place] [address] Insurance:MEDICARE SIGLERDOB: [place] [facility] [id number] Hospital 250[address]Ztf: (330) Number: Repository [phone] () [id number] Date:2017-12-22 02/04/2018 Secondary MIKALA H [place] Insurance:PHYSICIAN SIGLERDOB: [facility] MUTUAL INS COPolicy [id number] Hospital Number: Repository [id number] Date:6251-65-76FQ [address] [address]KC: 02/04/2018 Tertiary NOT GIVENUNK [place] Insurance:SELF PAY [facility] Number: Effective Repository Date:2018-02-04 02/02/2018 MIKALA Kaiser [id number] Primary MIKALACirilo [place] [address] Insurance:MEDICARE SIGLERDOB: [place] [facility] [id number] Hospital [address]48[address]Xte: (330) Number: Repository [phone] () [id number] Date:2017-12-23 02/02/2018 Secondary MIKALA Job [place] Insurance:PHYSICIAN SIGLERDOB: Community MUTUAL INS COPolicy [id number] Hospital Number: Repository [id number] Date:0690-68-90FL [address] [address]XN: 02/02/2018 Tertiary NOT GIVENUNK [place] Insurance:SELF PAY [facility] Number: Effective Repository Date:2017-12-23 01/29/2018 MIKALA [id number] Primary MIKALA [place] [address] Insurance:MEDICARE SIGLERDOB: [place] [facility] [id number] Hospital [address]Myl: (330) Number: Repository [phone] () [id number] Date:2018-01-29 01/29/2018 Secondary MIKALA H [place] Insurance:PHYSICIAN SIGLERDOB: [facility]UAL INS [facility] [id number] Hospital Number: Repository [id number] Date:2620-12-52OT [address] [address]VT: 01/29/2018 Tertiary NOT GIVENUNK [place] Insurance:SELF PAY [facility] Number: Effective Repository Date:2018-01-29 01/22/2018 MIKALA Kaiser [id number] Primary MIKALA Job [place] [address] Insurance:MEDICARE SIGLERDOB: [place] [facility] [id number] Hospital [address]16[address]Ury: (330) Number: Repository [phone] () [id number] Date:2018-01-22 01/22/2018 Secondary MIKALA H [place] Insurance:PHYSICIAN SIGLERDOB: [facility] MUTUAL INS COPolicy [id number] Hospital Number: Repository [id number] Date:2859-95-71ES [address] [address]HU: 01/22/2018 Tertiary NOT GIVENUNK [place] Insurance:SELF PAY [facility] Number: Effective Repository Date:2018-01-22 01/22/2018 MIKALA [id number] Primary MIKALA H [place] [address] Insurance:MEDICARE SIGLERDOB: [place] PART [place] olic [id number] Hospital 108[address]Fxp: (330) Number: Repository [phone] () [id number] Date:2017-12-17 01/22/2018 Secondary MIKALA H [place] Insurance:PHYSICIAN SIGLERDOB: Community [facility] [id number] Hospital Number: Repository [id number] Date:3057-67-76PU [address] [address]HW: 01/22/2018 Tertiary NOT GIVENUNK [place] Insurance:SELF PAY [facility] Number: Effective Repository Date:2018-01-12 01/19/2018 MIKALA [id number] Primary NOT GIVENUNK [place] [address] Insurance:SELF PAY [facility] [address]Mkf: (330) Number: Effective Repository [phone] () Date:2018-01-19 01/12/2018 MIKALA Job [id number] Primary NOT GIVENUNK [place] [address] Insurance:SELF PAY [facility] [address]32[address]Ics: (330) Number: Effective Repository [phone] () Date:2018-01-12 01/07/2018 MIKALA Job [id number] Primary MIKALA H [place] [address] Insurance:MEDICARE SIGLERDOB: [place] [facility] [id number] Hospital 333[address]Ywk: (330) Number: Repository [phone] () [id number] Date:2018-01-07 01/07/2018 Secondary MIKALA H [place] Insurance:PHYSICIAN SIGLERDOB: Community MUTUAL INS COPolicy [id number] Hospital Number: Repository [id number] Date:8191-42-67LL[address] [address]NW: 01/07/2018 Tertiary NOT GIVENUNK [place] Insurance:SELF PAY [facility] Number: Effective Repository Date:2018-01-07 01/07/2018 MIKALA [id number] Primary MIKALA Job [place] [address] Insurance:MEDICARE SIGLERDOB: [place] olicy [id number] Hospital 536[address]Ihf: (330) Number: Repository [phone] ) [id number] Date:2018-01-07 01/07/2018 Secondary MIKALA H [place] Insurance:PHYSICIAN SIGLERDOB: [facility] MUTUAL INS COPolicy [id number] Hospital Number: Repository [id number] Date:2433-02-10TF[address] [address]IT: 01/07/2018 Tertiary NOT GIVENUNK [place] Insurance:SELF PAY [facility] Number: Effective Repository Date:2018-01-07 01/07/2018 MIKALA Job [id number] Primary MIKALA Job [place] [address] Insurance:MEDICARE SIGLERDOB: [facility] olicy [id number] Hospital 332[address]Qpk: (330) Number: Repository [phone] () [id number] Date:2018-01-07 01/07/2018 Secondary MIKALA H [place] Insurance:PHYSICIAN SIGLERDOB: [facility] MUTUAL INS COPolicy [id number] Hospital Number: Repository [id number] Date:5306-39-41FV[address] [address]LL: 01/07/2018 Tertiary NOT GIVENUNK [place] Insurance:SELF PAY [facility] Number: Effective Repository Date:2018-01-07 01/07/2018 MIKALA H [id number] Primary MIKALA H [place] [address] Insurance:MEDICARE SIGLERDOB: [facility] [facility] [id number] Hospital [address]Dsc: (330) Number: Repository [phone] () [id number] Date:2018-01-07 01/07/2018 Secondary MIKALA Job [place] Insurance:PHYSICIAN SIGLERDOB: Community MUTUAL INS [facility] [id number] Hospital Number: Repository [id number] Date:6365-83-87XK [address] [address]PQ: 01/07/2018 Tertiary NOT GIVENUNK [place] Insurance:SELF PAY [facility] Number: Effective Repository Date:2018-01-07 01/07/2018 MIKALA H [id number] Primary MIKALA H [place] [facility] Insurance:MEDICARE SIGLERDOB: [place] [facility] [place] [facility] [id number] Hospital 225[address]Dcq: (330) Number: Repository [phone] () [id number] Date:2018-01-07 01/07/2018 Secondary MIKALA H [place] Insurance:PHYSICIAN SIGLERDOB: [facility] [id number] Hospital Number: Repository [id number] Date:0140-76-94GH[address] [address]TR: 01/07/2018 Tertiary NOT GIVENUNK [place] Insurance:SELF PAY [facility] Number: Effective Repository Date:2018-01-07 01/05/2018 MIKALA SIGLERDUPLICATE Primary MIKALA SIGLERDOB: [place] PATIENT RECORDTel: Insurance:MEDICARE [id number] Community [facility] Hospital Number: Repository [id number] Date:2017-12-22 01/05/2018 Secondary MIKALA SIGLERDOB: [place] Insurance:PHYSICIAN [id number] Number: Repository [id number] Date:3495-31-34HS[address] [address]KZ: 01/05/2018 Tertiary NOT GIVENUNK [place] Insurance:SELF PAY [facility] Number: Effective Repository Date:2018-01-05 01/05/2018 MIKALA Kaiser [id number] Primary MIKALA [place] [address] Insurance:MEDICARE SIGLERDOB: [place] olic [id number] Hospital 99[address]Ejn: (330) Number: Repository [phone] () [id number] Date:2017-12-22 01/05/2018 Secondary MIKALA Job [place] Insurance:PHYSICIAN SIGLERDOB: Community MUTUAL INS COPolicy [id number] Hospital Number: Repository [id number] Date:9335-14-26DB [address] [place] [address]SB: 01/05/2018 Tertiary NOT GIVENUNK [place] Insurance:SELF PAY [facility] Number: Effective Repository Date:2017-12-22 01/01/2018 MIKALA [id number] Primary MIKALA [place] [address] Insurance:MEDICARE SIGLERDOB: [place] [facility] [id number] [id number]: (330) Number: Repository [phone] () [id number] Date:2018-01-01 01/01/2018 Secondary MIKALA H [place] Insurance:PHYSICIAN SIGLERDOB: [id number] Hospital Number: Repository [id number] Date:2305-55-01QD [address] [address]VE: 01/01/2018 Tertiary NOT GIVENUNK [place] Insurance:SELF PAY [facility] Number: Effective Repository Date:2018-01-01 12/30/2017 MIKALA Kaiser [id number] Primary MKIALA Thurman A[address] Insurance:MEDICARE SIGLERDOB: [place] [facility] [id number] Hospital [address]Sjw: (330) Number: Repository [phone] () [id number] Date:2017-12-12 12/30/2017 Secondary MIKALA Job [place] Insurance:PHYSICIAN SIGLERDOB: Community MUTUAL INS COP[employer]icy [id number] Hospital Number: Repository [id number] Date:3566-28-80[address], [place] [address]CT: 12/30/2017 Tertiary NOT GIVENUNK [place] Insurance:SELF PAY [facility] Number: Effective Repository Date:2017-12-12 12/24/2017 MIKALA [id number] Primary MIKALA Job [place] [place] Insurance:MEDICARE SIGLERDOB: [place] [facility] [id number] Hospital [address]Ivp: (330) Number: Repository [phone] () [id number] Date:2017-12-24 12/24/2017 Secondary MIKALA H [place] Insurance:PHYSICIAN SIGLERDOB: [facility] MUTUAL INS [facility] [id number] Hospital Number: Repository [id number] Date:3651-47-82EF [address] [address]AX: 12/24/2017 Tertiary NOT GIVENUNK [place] Insurance:SELF PAY [facility] Number: Effective Repository Date:2017-12-24 12/22/2017 MIKALA Job [id number] Primary MIKALA Job [place] A[address] [place] Insurance:MEDICARE SIGLERDOB: [place] [facility] [id number] Hospital [address]Mnl: (330) Number: Repository [phone] () [id number] Date:2017-12-11 12/22/2017 Secondary MIKALA H [place] Insurance:PHYSICIAN SIGLERDOB: [facility] [id number] Hospital Number: Repository [id number] Date:6797-10-56CF [address] [address]XM: 12/22/2017 Tertiary NOT GIVENUNK [place] Insurance:SELF PAY [facility] Number: Effective Repository Date:2017-12-11 12/17/2017 MIKALA Job [id number] Primary MIKALA H [place] [address] Insurance:MEDICARE SIGLERDOB: [place] [facility] [id number] Hospital [address]Jch: (330) Number: Repository [phone] () [id number] Date:2017-12-17 12/17/2017 Secondary MIKALA Job [place] Insurance:PHYSICIAN SIGLERDOB: Community [facility] [id number] Hospital Number: Repository [id number] Date:[id number] [address]KK: 12/17/2017 Tertiary NOT GIVENUNK [place] Insurance:SELF PAY [facility] Number: Effective Repository Date:2017-12-17 12/17/2017 MIKALA Job [id number] Primary MIKALA H Ol[place] A[address] [place] Insurance:MEDICARE SIGLERDOB: [place] [facility] [id number] Hospital 614[address]Mpw: (330) Number: Repository [phone] () [id number] Date:2017-12-11 12/17/2017 Secondary MIKALA H [place] Insurance:PHYSICIAN SIGLERDOB: [facility] [id number] Hospital Number: Repository [id number] Date:7504-14-17UZ[address] [address]CQ: 12/17/2017 Tertiary NOT GIVENUNK [place] Insurance:SELF PAY [facility] Number: Effective Repository Date:2017-12-17 12/07/2017 MIKALA Job [id number] Primary MIKALA Job [place] ABDIAS RUN Insurance:MEDICARE SIGLERDOB: [place] [facility] [id number] Hospital 17[address]Bgl: (330) Number: Repository [phone] () [id number] Date:2017-12-07 12/07/2017 Secondary MIKALA H [place] Insurance:PHYSICIAN SIGLERDOB: [facility] [id number] Hospital Number: Repository [id number] Date:[id number] [address]UQ: 12/07/2017 Tertiary NOT GIVENUNK [place] Insurance:SELF PAY [facility] Number: Effective Repository Date:2017-12-07 12/07/2017 MIKALA Kaiser [id number] Primary MIKALACirilo Thurman A[address] Insurance:MEDICARE SIGLERDOB[place] [facility] [id number] Hospital 235[address]Svz: (330) Number: Repository [phone] () [id number] Date:2017-12-07 12/07/2017 Secondary MIKALA Job [place] Insurance:PHYSICIAN SIGLERDOB: Community MUTUAL INS COP[employer] [id number] Hospital Number: Repository [id number] Date:1590-11-56WW [address] [address]XN: 12/07/2017 Tertiary NOT GIVENUNK [place] Insurance:SELF PAY [facility] Number: Effective Repository Date:2017-12-07 12/07/2017 MIKALA [id number] Primary MIKALA Thurman A[address] Insurance:MEDICARE SIGLERDOB: [place] [facility] [id number] Hospital [address]Fix: (330) Number: Repository [phone] () [id number] Date:2017-12-07 12/07/2017 Secondary MIKALA H [place] Insurance:PHYSICIAN SIGLERDOB: [facility] [id number] Hospital Number: Repository [id number] Date:1183-15-20SG [address] [address]SN: 12/07/2017 Tertiary NOT GIVENUNK [place] Insurance:SELF PAY [facility] Number: Effective Repository Date:2017-12-07 12/07/2017 MIKALA Kaiser [id number] Primary MIKALA Job [place] [address] Insurance:MEDICARE SIGLERDOB: [place] [facility] [id number] Hospital 29[address]Fmy: (330) Number: Repository [phone] () [id number] Date:2017-12-07 12/07/2017 Secondary MIKALA H [place] Insurance:PHYSICIAN SIGLERDOB: Community MUTUAL INS COP[employer] [id number] Hospital Number: Repository [id number] Date:1386-99-47ME [address] [address]BE: 12/07/2017 Tertiary NOT GIVENUNK [place] Insurance:SELF PAY [facility] Number: Effective Repository Date:2017-12-07 12/07/2017 MIKALA [id number] Primary MIKALA Job Thur[place] [address] Insurance:MEDICARE SIGLERDOB: [place] [facility] [id number] Hospital 59[address]Pye: (330) Number: Repository [phone] () [id number] Date:2017-12-07 12/07/2017 Secondary MIKALA Job [place] Insurance:PHYSICIAN SIGLERDOB: [facility] M[facility]UAL INS [facility] [id number] Hospital Number: Repository [id number] Date:6756-30-16DV [address] [address]PW: 12/07/2017 Tertiary NOT GIVENUNK [place] Insurance:SELF PAY [facility] Number: Effective Repository Date:2017-12-07 12/07/2017 MIKALA [id number] Primary MIKALA H [place] [address] [place] Insurance:MEDICARE SIGLERDOB: [place] [facility] [id number] Hospital [address]Xth: (330) Number: Repository [phone] () [id number] Date:2017-12-07 12/07/2017 Secondary MIKALA Job [place] Insurance:PHYSICIAN SIGLERDOB: [facility] [id number] Hospital Number: Repository [id number] Date:4312-53-65DG [address] [address]PK: 12/07/2017 Tertiary NOT GIVENUNK [place] Insurance:SELF PAY [facility] Number: Effective Repository Date:2017-12-07 12/07/2017 MIKALA [id number] Primary MIKALA Job [place] [place] Insurance:MEDICARE SIGLERDOB: [place] [facility] [id number] Hospital [address]12[address]Ffo: (330) Number: Repository [phone] () [id number] Date:2017-12-07 12/07/2017 Secondary MIKALA Job [place] Insurance:PHYSICIAN SIGLERDOB: Community [facility] [id number] Hospital Number: Repository [id number] Date:8255-77-01TB[address] [address]WQ: 12/07/2017 Tertiary NOT GIVENUNK [place] Insurance:SELF PAY [facility] Number: Effective Repository Date:2017-12-07 12/07/2017 MIKALA Job [id number] Primary MIKALA Job [place] [place] Insurance:MEDICARE SIGLERDOB: [place] [facility] [id number] Hospital 565[address]Fyg: (330) Number: Repository [phone] () [id number] Date:2017-12-07 12/07/2017 Secondary MIKALA Job [place] Insurance:PHYSICIAN SIGLERDOB: Community M[facility]UAL [facility] [id number] Hospital Number: Repository [id number] Date:3277-70-96HG[address] [address]FZ: 12/07/2017 Tertiary NOT GIVENUNK [place] Insurance:SELF PAY [facility] Number: Effective Repository Date:2017-12-07 12/07/2017 MIKALA Job [id number] Primary MIKALA Job [place] A[address] [place] Insurance:MEDICARE SIGLERDOB: [place] [facility] [id number] Hospital [address]Puu: (330) Number: Repository [phone] () [id number] Date:2017-12-07 12/07/2017 Secondary MIKALA H [place] Insurance:PHYSICIAN SIGLERDOB: Community M[facility]UAL INS [facility] [id number] Hospital Number: Repository [id number] Date:0623-23-21UB [address] [address]RZ: 12/07/2017 Tertiary NOT GIVENUNK [place] Insurance:SELF PAY [facility] Number: Effective Repository Date:2017-12-07 10/27/2017 MIKALA [id number] Primary MIKALA Job [place] A[address] RUN Insurance:MEDICARE SIGLERDOB: [place] [facility] [id number] Hospital 28[address]Dif: (330) Number: Repository [phone] () [id number] Date:2017-10-27 10/27/2017 Secondary MIKALA Job [place] Insurance:PHYSICIAN SIGLERDOB: [facility] [id number] Hospital Number: Repository [id number] Date:4655-81-65UK[address] [address]MK: 10/27/2017 Tertiary NOT GIVENUNK [place] Insurance:SELF PAY [facility] Number: Effective Repository Date:2017-10-27 09/29/2017 MIKALA SIGBERADUPLICATE Primary MIKALA SIGLERDOB: [place] PATIENT RECORDTel: Insurance:MEDICARE [id number] [facility] Hospital Number: Repository [id number] Date:2017-09-23 09/29/2017 Secondary MIKALA SIGLERDOB: [place] Insurance:PHYSICIAN [id number] Number: Repository [id number] Date:5252-83-27QX[address] [address]NI: 09/29/2017 Tertiary NOT GIVENUNK [place] Insurance:SELF PAY [facility] Number: Effective Repository Date:2017-09-23 09/16/2017 MIKALA H [id number] Primary MIKALA Job [place] ABDIAS RUN Insurance:MEDICARE SIGLERDOB: [facility] [place] [facility] [id number] Hospital 40[address]Zxj: (330) Number: Repository [phone] () [id number] Date:2017-09-16 09/16/2017 Secondary MIKALA H [place] Insurance:PHYSICIAN SIGLERDOB: [facility] [id number] Hospital Number: Repository [id number] Date:1069-95-48YP [address] [place] [address]EB: 09/16/2017 Tertiary NOT GIVENUNK [place] Insurance:SELF PAY [facility] Number: Effective Repository Date:2017-09-16 09/02/2017 MIKALA [id number] Primary MIKALACirilo Thurman A[address] [place] Insurance:MEDICARE SIGLERDOB: [place] [id number] Hospital 80[address]Hnp: (330) Number: Repository [phone] () [id number] Date:2017-09-02 09/02/2017 Secondary MIKALA Job [place] Insurance:PHYSICIAN SIGLERDOB: [facility] [id number] Hospital Number: Repository [id number] Date:8954-59-41ZL [address] [address]SO: 09/02/2017 Tertiary NOT GIVENUNK [place] Insurance:SELF PAY [facility] Number: Effective Repository Date:2017-09-02 07/24/2017 MIKALA [id number] Primary MIKALA Thurman [address] [place] Insurance:MEDICARE SIGLERDOB: [place] [facility] [id number] Hospital 720[address]Zuq: (330) Number: Repository [phone] () [id number] Date:2017-03-16 07/24/2017 Secondary MIKALA Job [place] Insurance:PHYSICIAN SIGLERDOB: [facility] MUTUAL INS COP[employer] [id number] Hospital Number: Repository [id number] Date:7730-76-79OD [address] [place] [address]PT: 07/24/2017 Tertiary NOT GIVENUNK [place] Insurance:SELF PAY [facility] Number: Effective Repository Date:2017-07-24 07/14/2017 MIKALA Kaiser [id number] Primary MIKALA Job [place] [address] Insurance:MEDICARE SIGLERDOB: [place] [id number] Hospital 113[address]Mck: (330) Number: Repository [phone] ( [id number] Date:2017-07-04 07/14/2017 Secondary MIKALA Thur[place] Insurance:PHYSICIAN CARLTONB: Community MUTUAL INS COP[employer]icy [id number] [facility] Number: Repository [id number] Date:4661-73-81NQ [place]NE[place]O GALO [address]MO: 07/14/2017 Tertiary NOT GIVENBRIGITTE [place] Insurance:SELF PAY [facility] Number: Effective Repository Date:2017-07-04
== END 2018-03-23 10:00 | disposition home or self-care (01) ==
LOC: MTLAB 09:04
PROVIDERS: Family Provider Family Medicine; PCP Family Medicine; Referring Provider Internal Medicine Cardiovascular Disease; Visit Provider Internal Medicine Cardiovascular Disease
DX: I48.0 Paroxysmal atrial fibrillation (principal); Z79.01 Long term (current) use of anticoagulants
CPT/HCPCS: 36415; 85610

== ENCOUNTER → 2018-04-21 10:36 | Outpatient (CLI) | payer MEDICARE, OTHER, SELFPAY ==
[2018-03-05 10:42] VITALS: BMI 28.5
[2018-04-21 12:35] LABS: Absolute Lymphocyte Count 0.56 X10^3/ul (0.83-4.51); Absolute Neutrophil Count 2.9 X10^3/uL (2.0-7.7); Basophil# 0.02 X10^3/uL; Basophil% 0.5 % (0-1); Eosinophil# 0.05 X10^3/uL; Eosinophils% 1.3 % (0-5); Hematocrit 29.5 % (40-54); Lymphocyte # 0.56 X10^3/ul (4.0); Lymphocyte % 14.1 % (19-41); Mean Corp Hgb Conc 30.5 g/gl (32-36); Mean Corpuscular Hgb 26.7 pg (27.0-32.0); Mean Corpuscular Volume 87.5 fL (80-94); Mean Platelet Vol. 10.4 fl (6.2-12.0); Monocyte% 10.1 % (0-10); Neutrophil # 2.93 X10^3/uL (2.7-7.7); Neutrophil % 73.7 % (47-70); Platelet Count 221 K/mm3 (150-450); RBC Distribution Width SD 46.8 fl (35.1-43.9); Red Blood Count 3.37 M/mm3 (4.6-6.2)
[2018-04-21 12:36] LABS: Differential Indicated SCAN CRITERIA MET; POSITIVE COUNT NO; POSITIVE DIFFERENTIAL YES; POSITIVE MORPHOLOGY NO
[2018-04-21 12:49] LABS: ALB/GLOB Ratio 1.1 RATIO (0.9-2.4); AST(SGOT) 16 U/L (15-37); Alanine Aminotransfer ALT/SGPT 25 U/L (16-61); Alkaline Phosphatase 79 U/L (45-117); Anion Gap 7 (5-15); BUN 36 mg/dL (7-18); Calcium,Total 8.8 mg/dL (8.5-10.1); Chloride 105 mmol/L (98-107); Cholesterol 176 mg/dL (200); EST Glomerular Filtration Rate 63 mL/min (>60); Est Glom Filt Rate - Afr Amer 76 mL/min (>60); Ferritin 23 ng/mL (26-388); Globulin 3.7 g/dL (2.2-4.2); Glucose 92 mg/dL (74-106); High Density Lipoprotein 45 mg/dL; Iron 39 ug/dL (65-175); Potassium 4.7 mmol/L (3.5-5.1); Protein, Total 7.7 g/dL (6.4-8.2); Sodium Level 137 mmol/L (136-145); Triglycerides 119 mg/dL; Very Low Density Lipoprotein 24 mg/dL (5-40)
[2018-04-21 12:51] LABS: Hemoglobin A1c 6.6 % (4.2-6.3)
[2018-04-21 12:54] LABS: Vitamin B12 469 pg/mL (211-911)
[2018-04-22 11:37] LABS: Pathologist Review Reviewed
[2018-04-22 12:14] LABS: Microalbumin,Random Urine 42.1 mg/L (NO RANGE EST.); Microalbumin:Creatinine Ratio 41.3 mg/g CRE (<30 mg/g CRE)
== END ==
PROVIDERS: Nurse Practitioner Family; Family Provider Family Medicine; PCP Family Medicine; Visit Provider Family Medicine
DX: E11.40 Type 2 diabetes mellitus with diabetic neuropathy, unspecified (principal); I10 Essential (primary) hypertension; D64.9 Anemia, unspecified; E78.5 Hyperlipidemia, unspecified
CPT/HCPCS: 36415; 80053; 80061; 82043; 82248; 82570; 82607; 82728; 83036; 83540; 85025

== ENCOUNTER 2018-05-04 09:26 | Outpatient (RCR) | payer MEDICARE, OTHER, SELFPAY ==
[2018-03-05 10:42] VITALS: BMI 28.5
[2018-04-10 10:32] LABS: International Normalized Ratio 2.1; Prothrombin Time (Protime)PT. 23.8 SECONDS (11.7-14.9)
[2018-05-04 12:27] LABS: PSA,Total- Diagnostic 0.58 ng/mL (0.0-4.0)
[2018-05-04 12:36] LABS: International Normalized Ratio 1.9; Prothrombin Time (Protime)PT. 21.9 SECONDS (11.7-14.9)
== END 2018-05-04 11:00 | disposition home or self-care (01) ==
LOC: MTLAB 09:26
PROVIDERS: Family Provider Family Medicine; PCP Family Medicine; Referring Provider Internal Medicine Cardiovascular Disease; Visit Provider Internal Medicine Cardiovascular Disease
DX: I48.0 Paroxysmal atrial fibrillation (principal); Z79.01 Long term (current) use of anticoagulants; Z95.3 Presence of xenogenic heart valve; C61 Malignant neoplasm of prostate
CPT/HCPCS: 36415; 84153; 85610

== ENCOUNTER 2018-06-01 10:19 | Outpatient (RCR) | payer MEDICARE, OTHER, SELFPAY ==
[2018-03-05 10:42] VITALS: BMI 28.5
[2018-05-18 14:22] LABS: International Normalized Ratio 2.3; Prothrombin Time (Protime)PT. 25.5 SECONDS (11.7-14.9)
[2018-06-01 12:39] LABS: International Normalized Ratio 1.8; Prothrombin Time (Protime)PT. 20.8 SECONDS (11.7-14.9)
== END 2018-06-04 15:06 | disposition home or self-care (01) ==
LOC: MTLAB 10:19
PROVIDERS: Family Provider Family Medicine; PCP Family Medicine; Referring Provider Internal Medicine Cardiovascular Disease; Visit Provider Internal Medicine Cardiovascular Disease
DX: I48.0 Paroxysmal atrial fibrillation (principal); Z79.01 Long term (current) use of anticoagulants; Z95.3 Presence of xenogenic heart valve
CPT/HCPCS: 36415; 85610

== ENCOUNTER → 2018-06-05 15:41 | Outpatient (CLI) | payer MEDICARE, OTHER, SELFPAY ==
--- NOTE | 2018-06-05 08:45 | COLBX_PTH ---
PATIENT: [facility]ILSON [facility] U[facility][id number] AGE/SX: 84/M ROOM: RE06/05/[address]: Dr. Jj Henry MD : 1940 BED: DIS: SPEC #: [id number] RECD: 06/05/18 15:32 STATUS: TRACIE RELadi #: [id number] BRISEIDA: 06/05/18 08:[address]: Jj Henry DEPT: SURGICAL PATHOLOGY RECD BY: Jarrod Will ENTERED: 06/08/18 13:50 SP TYPE: COLON BX OTHR DR: Dr. Lei Funes, [facility] Tissues: Right colon Procedures: Surgery Specimen Level IV HEADER OPERATION: Colonoscopy with polypectomy PRE-OP DIAGNOSIS: Iron deficiency anemia TISSUE SUBMITTED: Right colon polyp, rule out adenoma MICROSCOPIC DIAGNOSIS Right colon polyp, biopsy: Tubular adenoma. AM:luda 06/09/18 MICROSCOPIC DESCRIPTION Slides are reviewed. GROSS DESCRIPTION Received in fixative is one container labeled with the patient's name and designated right colon polyp. The specimen consists of a pena-pink polyp measuring 0.5 x 0.3 x 0.3 cm. Also present in the container are two minute fragments of fecal material. The entire specimen is submitted in one cassette. / SJ:rg 06/08/18 TC:5 CPT: 10663
[2018-06-05 15:41] VITALS: BMI 31.3
== END ==
PROVIDERS: Family Provider Family Medicine; PCP Family Medicine; Referring Provider Internal Medicine Gastroenterology; Visit Provider Internal Medicine Gastroenterology
DX: D50.9 Iron deficiency anemia, unspecified (principal)
CPT/HCPCS: 88305

== ENCOUNTER → 2018-06-19 13:42 | Outpatient (CLI) | payer MEDICARE, OTHER, SELFPAY ==
[2018-06-19 12:55] VITALS: BMI 31.4
--- NOTE | 2018-06-19 13:50 | RAD_ITS ---
STUDY: X-RAY CHEST REASON FOR EXAM: Male, 77 years old. Shortness of breath TECHNIQUE: PA and lateral views of the chest. COMPARISON: February 20, 2018 chest x-ray FINDINGS: There is a pacemaker overlying the chest with leads overlying right atrium and ventricle. There is an atrial clip. There is a visualized cardiac valve ring. Interstitial markings are prominent greater in the lung bases and prior. There is no demonstrated pleural abnormality. There is moderate cardiomegaly. Normal mediastinum and jerrica. Normal visualized pulmonary arteries. Normal visualized aortic arch and descending thoracic aorta. Normal visualized thoracic spine. There is an orthopedic tack in the right humeral head. There is no demonstrated abnormality of the visualized soft tissue structures of the upper abdomen. RAD/Chest PA and Lateral IMPRESSION: Moderate cardiomegaly. Findings suspicious for mild pulmonary edema. Pacemaker. Status post cardiac valve repair. Electronically Signed: Rosemarie Plaza MD at 15:25 EDT Tel , Service support ,
[2018-06-19 14:13] VITALS: BP 137/64; PULSE 105; RESP 20; TEMP 36.3; O2SAT 92; BMI 32.4
[2018-06-19] MEDS: Furosemide 40 MG/4 ML Vial 80 MG IV (14:22)
[2018-06-19 14:53] LABS: Absolute Lymphocyte Count 0.52 X10^3/ul (0.83-4.51); Absolute Neutrophil Count 2.8 X10^3/uL (2.0-7.7); Basophil# 0.02 X10^3/uL; Basophil% 0.5 % (0-1); Eosinophil# 0.07 X10^3/uL; Eosinophils% 1.8 % (0-5); Hematocrit 34.5 % (40-54); Hemoglobin 10.7 g/dl (13.0-16.5); Lymphocyte # 0.52 X10^3/ul (4.0); Lymphocyte % 13.6 % (19-41); Mean Corpuscular Volume 93.5 fL (80-94); Mean Platelet Vol. 10.6 fl (6.2-12.0); Monocyte% 10.4 % (0-10); Neutrophil # 2.81 X10^3/uL (2.7-7.7); Neutrophil % 73.4 % (47-70); POSITIVE COUNT NO; POSITIVE DIFFERENTIAL YES; POSITIVE MORPHOLOGY NO; Platelet Count 187 K/mm3 (150-450); RBC Distribution Width CV 18.3 % (11.6-14.6); RBC Distribution Width SD 59.4 fl (35.1-43.9); Red Blood Count 3.69 M/mm3 (4.6-6.2); White Blood Count 3.8 K/mm3 (4.4-11.0)
[2018-06-19 14:54] LABS: Differential Indicated SCAN CRITERIA MET
[2018-06-19 15:20] LABS: Anion Gap 6 (5-15); BUN 32 mg/dL (7-18); BUN/Creat Ratio 24.6 RATIO (10-20); Calcium,Total 8.8 mg/dL (8.5-10.1); Chloride 107 mmol/L (98-107); EST Glomerular Filtration Rate 57 mL/min (>60); Est Glom Filt Rate - Afr Amer 69 mL/min (>60); Glucose 143 mg/dL (74-106); Sodium Level 137 mmol/L (136-145)
[2018-06-19 15:35] LABS: BNP,B-Type NATRIURETIC PEPTIDE 186.2 pg/mL (0-100)
[2018-06-19 15:58] LABS: Anisocytosis RARE; Macrocytosis RARE; Platelet Estimate ADEQUATE (ADEQ)
[2018-06-19 22:43] LABS: Xtra Tube EP Lab EXTRA TUBE
== END ==
PROVIDERS: Family Provider Family Medicine; PCP Family Medicine; Referring Provider Nurse Practitioner Family; Visit Provider Nurse Practitioner Family
DX: R06.02 Shortness of breath (principal); I50.22 Chronic systolic (congestive) heart failure; I25.10 Atherosclerotic heart disease of native coronary artery without angina pectoris; I49.5 Sick sinus syndrome
CPT/HCPCS: 96374; 71046; 80048; 83880; 85025; A4216; J1940

== ENCOUNTER 2018-06-29 09:59 | Outpatient (RCR) | payer MEDICARE, OTHER, SELFPAY ==
[2018-06-05 15:41] VITALS: BMI 31.3
[2018-06-15 10:51] LABS: International Normalized Ratio 2.1; Prothrombin Time (Protime)PT. 23.3 SECONDS (11.7-14.9)
[2018-06-29 12:30] LABS: International Normalized Ratio 2.3; Prothrombin Time (Protime)PT. 25.4 SECONDS (11.7-14.9)
== END 2018-06-29 11:00 | disposition home or self-care (01) ==
LOC: MTLAB 09:59
PROVIDERS: Family Provider Family Medicine; PCP Family Medicine; Referring Provider Internal Medicine Cardiovascular Disease; Visit Provider Internal Medicine Cardiovascular Disease
DX: I48.0 Paroxysmal atrial fibrillation (principal); Z79.01 Long term (current) use of anticoagulants
CPT/HCPCS: 36415; 85610

== ENCOUNTER 2018-07-13 10:21 | Outpatient (RCR) | payer MEDICARE, OTHER, SELFPAY ==
[2018-07-03 14:14] VITALS: BMI 31.3
[2018-07-13 12:41] LABS: International Normalized Ratio 2.2; Prothrombin Time (Protime)PT. 24.1 SECONDS (11.7-14.9)
[2018-07-13 12:49] LABS: Absolute Lymphocyte Count 0.46 X10^3/ul (0.83-4.51); Absolute Neutrophil Count 2.2 X10^3/uL (2.0-7.7); Basophil# 0.02 X10^3/uL; Basophil% 0.6 % (0-1); Eosinophil# 0.06 X10^3/uL; Eosinophils% 1.9 % (0-5); Hematocrit 33.1 % (40-54); Hemoglobin 10.5 g/dl (13.0-16.5); Lymphocyte # 0.46 X10^3/ul (4.0); Lymphocyte % 14.7 % (19-41); Mean Corp Hgb Conc 31.7 g/gl (32-36); Mean Corpuscular Hgb 29.1 pg (27.0-32.0); Mean Corpuscular Volume 91.7 fL (80-94); Mean Platelet Vol. 11.1 fl (6.2-12.0); Monocyte# 0.36 X10^3/uL; Monocyte% 11.5 % (0-10); Neutrophil # 2.21 X10^3/uL (2.7-7.7); Platelet Count 166 K/mm3 (150-450); RBC Distribution Width CV 17.3 % (11.6-14.6); RBC Distribution Width SD 54.9 fl (35.1-43.9); Red Blood Count 3.61 M/mm3 (4.6-6.2); White Blood Count 3.1 K/mm3 (4.4-11.0)
[2018-07-13 12:53] LABS: Differential Indicated SCAN CRITERIA MET; POSITIVE COUNT NO; POSITIVE DIFFERENTIAL YES; POSITIVE MORPHOLOGY NO
[2018-07-13 13:03] LABS: Hemoglobin A1c 6.3 % (4.2-6.3)
[2018-07-13 13:15] LABS: Ferritin 38 ng/mL (26-388); Iron 70 ug/dL (65-175)
== END 2018-08-04 16:00 | disposition home or self-care (01) ==
LOC: MTLAB 10:21
PROVIDERS: Family Provider Family Medicine; PCP Family Medicine; Referring Provider Internal Medicine Cardiovascular Disease; Visit Provider Internal Medicine Cardiovascular Disease
DX: I48.0 Paroxysmal atrial fibrillation (principal); Z79.01 Long term (current) use of anticoagulants; Z95.3 Presence of xenogenic heart valve
CPT/HCPCS: 36415; 82728; 83036; 83540; 83921; 85025; 85610

== ENCOUNTER → 2018-07-15 13:00 | Outpatient (CLI) | payer MEDICARE, OTHER, SELFPAY ==
[2018-06-24 14:26] VITALS: BMI 31.6
[2018-07-03 14:14] VITALS: BMI 31.3
--- NOTE | 2018-07-15 13:02 | ECHOD_ITS ---
Reason For Study: Dyspnea/SOB Procedure This was a 2D Doppler, Color Flow transthoracic echocardiogram. Exam performed in department. Left Ventricle Normal LV size. Severe concentric left ventricular hypertrophy. Left ventricular systolic function is normal. The estimated ejection fraction is 60 %. Stage 3 diastolic dysfunction. No regional wall motion abnormalities noted. Right Ventricle Normal RV size. ICD or pacer leads identified within the right ventricle. Normal systolic function. Atria The left atrium is severely enlarged. The right atrium is moderately enlarged. Mitral Valve Status post mitral valve repair with annuloplasty ring. Tricuspid Valve Normal tricuspid valve. Moderate (2+) tricuspid valve insufficiency. Pulmonary artery systolic pressure is 60 mmHg. Moderate pulmonary hypertension. Aortic Valve Peak aortic valve gradient 39 mmHg. Mean aortic valve gradient 19 mmHg. Mild aortic stenosis. Calculated aortic valve area (continuity equation) is 1.6 cm2. Bioprosthetic aortic valve. Pulmonic Valve Normal pulmonic valve. Mild (1+) eccentric pulmonic valve insufficiency. Great Vessels Normal aortic root. The pulmonary artery is normal size. Normal inferior vena cava. Pericardium/Pleural No pericardial effusion. MMode/2D Measurements & Calculations LVIDd: 4.6 cm IVSd: 1.7 cm LVOT diam: 2.0 cm LVIDs: 3.2 cm LVPWd: 1.6 cm LVOT area: 3.2 cm2 RVDd: 4.9 cm FS: 29.9 % Ao root diam: 3.1 cm LAV(MOD-bp): 171.1 ml LVAd ap4: 20.8 cm2 LAV(MOD-bp) Indexed: 84.6 ml/m2 EDV(MOD-sp4): 51.8 ml LAV(MOD-sp2): 128.0 ml EDV(sp4-el): 51.9 ml LAV(MOD-sp4): 191.0 ml LVAs ap4: 11.1 cm2 ESV(MOD-sp4): 17.1 ml ESV(sp4-el): 16.7 ml EF(MOD-sp4): 67.0 % EF(sp4-el): 67.8 % SV(MOD-sp4): 34.7 ml SV(sp4-el): 35.2 ml LA A4 area: 44.3 cm2 LA dimension(2D): 6.2 cm RA A4 area: 33.0 cm2 Time Measurements MV dec time: 0.09 sec Doppler Measurements & Calculations MV E max thor: 200.9 cm/sec Lat Peak E' Thor: 9.2 cm/sec Med Peak E' Thor: 5.4 cm/sec MV A max thor: 147.5 cm/sec E/E' lat: 21.8 E/E' med: 37.5 MV E/A: 1.4 MV V2 max: 244.1 cm/sec MV P1/2t max thor: 239.8 cm/sec Ao V2 max: 314.6 cm/sec MV max P.8 mmHg MV P1/2t: 72.1 msec Ao max P.6 mmHg MV V2 mean: 166.7 cm/sec Ao V2 mean: 208.1 cm/sec MV mean P.9 mmHg MV dec slope: 974.7 cm/sec2 Ao mean P.7 mmHg MV V2 VTI: 47.6 cm MVA(P1/2t): 3.1 cm2 Ao V2 VTI: 53.5 cm MVA(VTI): 2.0 cm2 GREGG(I,D): 1.8 cm2 GREGG(V,D): 1.6 cm2 LV V1 max: 160.8 cm/sec SV(LVOT): 93.6 ml PA V2 max: 104.8 cm/sec LV V1 max P.3 mmHg LV V1 mean P.6 mmHg LV V1 mean: 111.1 cm/sec LV V1 VTI: 29.3 cm PI end-d thor: 206.0 cm/sec TR max thor: 377.3 cm/sec TR max P.9 mmHg Interpretation Summary Status post mitral valve repair with annuloplasty ring. Normal LV size. Severe concentric left ventricular hypertrophy. Left ventricular systolic function is normal. The estimated ejection fraction is 60 %. Stage 3 diastolic dysfunction. Moderate (2+) tricuspid valve insufficiency. Moderate pulmonary hypertension. Bioprosthetic aortic valve. Calculated aortic valve area (continuity equation) is 1.6 cm2. Ordering Physician: Luis Mcdaniel Referring Physician: Lei Funes Performed By: Kimberly Mcdaniel, ADRIANE, RVT
== END ==
PROVIDERS: Family Provider Family Medicine; PCP Family Medicine; Referring Provider Nurse Practitioner Family; Visit Provider Nurse Practitioner Family
DX: I50.22 Chronic systolic (congestive) heart failure (principal)
CPT/HCPCS: 93306

== ENCOUNTER 2018-08-03 09:21 | Outpatient (RCR) | payer MEDICARE, OTHER, SELFPAY ==
[2018-07-24 08:55] VITALS: BMI 32.4
[2018-08-03 12:33] LABS: International Normalized Ratio 2.2; Prothrombin Time (Protime)PT. 24.6 SECONDS (11.7-14.9)
== END 2018-08-04 16:00 | disposition home or self-care (01) ==
LOC: MTLAB 09:21
PROVIDERS: Family Provider Family Medicine; PCP Family Medicine; Referring Provider Internal Medicine Cardiovascular Disease; Visit Provider Internal Medicine Cardiovascular Disease
DX: I48.0 Paroxysmal atrial fibrillation (principal); Z79.01 Long term (current) use of anticoagulants; Z95.3 Presence of xenogenic heart valve
CPT/HCPCS: 36415; 85610

== ENCOUNTER 2018-08-24 09:08 | Outpatient (RCR) | payer MEDICARE, OTHER, SELFPAY ==
[2018-08-05 13:44] VITALS: BMI 31.6
[2018-08-17 10:23] VITALS: BMI 32.4
[2018-08-24 09:57] LABS: International Normalized Ratio 2.1; Prothrombin Time (Protime)PT. 23.3 SECONDS (11.7-14.9)
== END 2018-08-24 10:00 | disposition home or self-care (01) ==
LOC: MTLAB 09:08
PROVIDERS: Family Provider Family Medicine; PCP Family Medicine; Referring Provider Internal Medicine Cardiovascular Disease; Visit Provider Internal Medicine Cardiovascular Disease
DX: I48.0 Paroxysmal atrial fibrillation (principal); Z79.01 Long term (current) use of anticoagulants; Z95.3 Presence of xenogenic heart valve
CPT/HCPCS: 36415; 85610

== ENCOUNTER → 2018-09-14 10:17 | Outpatient (CLI) | payer MEDICARE, OTHER, SELFPAY ==
[2018-07-24 08:55] VITALS: BMI 32.4
[2018-08-17 10:23] VITALS: BMI 32.4
[2018-09-14 12:23] LABS: Absolute Lymphocyte Count 0.65 X10^3/ul (0.83-4.51); Basophil# 0.02 X10^3/uL; Basophil% 0.5 % (0-1); Eosinophil# 0.06 X10^3/uL; Eosinophils% 1.4 % (0-5); Hematocrit 34.1 % (40-54); Hemoglobin 11.2 g/dl (13.0-16.5); Lymphocyte # 0.65 X10^3/ul (4.0); Lymphocyte % 15.7 % (19-41); Mean Corp Hgb Conc 32.8 g/gl (32-36); Mean Corpuscular Volume 91.4 fL (80-94); Mean Platelet Vol. 10.6 fl (6.2-12.0); Monocyte# 0.43 X10^3/uL; Monocyte% 10.4 % (0-10); Neutrophil # 2.97 X10^3/uL (2.7-7.7); Neutrophil % 71.8 % (47-70); Platelet Count 162 K/mm3 (150-450); RBC Distribution Width CV 15.4 % (11.6-14.6); RBC Distribution Width SD 51.4 fl (35.1-43.9); Red Blood Count 3.73 M/mm3 (4.6-6.2); White Blood Count 4.1 K/mm3 (4.4-11.0)
[2018-09-14 12:28] LABS: POSITIVE COUNT NO; POSITIVE DIFFERENTIAL NO; POSITIVE MORPHOLOGY NO
[2018-09-14 12:39] LABS: Hemoglobin A1c 6.4 % (4.2-6.3)
[2018-09-14 12:47] LABS: ALB/GLOB Ratio 1.1 RATIO (0.9-2.4); AST(SGOT) 16 U/L (15-37); Alanine Aminotransfer ALT/SGPT 26 U/L (16-61); Albumin, Serum 3.9 g/dL (3.2-5.0); Alkaline Phosphatase 68 U/L (45-117); Anion Gap 12 (5-15); BUN 38 mg/dL (7-18); BUN/Creat Ratio 27.9 RATIO (10-20); Calcium,Total 9.1 mg/dL (8.5-10.1); Chloride 105 mmol/L (98-107); Creatinine, Serum 1.36 mg/dL (0.70-1.30); EST Glomerular Filtration Rate 54 mL/min (>60); Est Glom Filt Rate - Afr Amer 65 mL/min (>60); Ferritin 38 ng/mL (26-388); Globulin 3.7 g/dL (2.2-4.2); Glucose 122 mg/dL (74-106); Iron 68 ug/dL (65-175); Potassium 4.8 mmol/L (3.5-5.1); Protein, Total 7.6 g/dL (6.4-8.2); Sodium Level 140 mmol/L (136-145)
== END ==
PROVIDERS: Family Provider Family Medicine; PCP Family Medicine; Referring Provider Family Medicine; Visit Provider Family Medicine
DX: D50.9 Iron deficiency anemia, unspecified (principal); E08.21 Diabetes mellitus due to underlying condition with diabetic nephropathy; I10 Essential (primary) hypertension
CPT/HCPCS: 36415; 80053; 82728; 83036; 83540; 85025

== ENCOUNTER 2018-09-28 11:10 | Outpatient (RCR) | payer MEDICARE, OTHER, SELFPAY ==
[2018-08-17 10:23] VITALS: BMI 32.4
[2018-09-28 12:50] LABS: International Normalized Ratio 2.5; Prothrombin Time (Protime)PT. 26.6 SECONDS (11.7-14.9)
== END 2018-09-28 11:30 | disposition home or self-care (01) ==
LOC: MTLAB 11:10
PROVIDERS: Family Provider Family Medicine; PCP Family Medicine; Referring Provider Internal Medicine Cardiovascular Disease; Visit Provider Internal Medicine Cardiovascular Disease
DX: I48.0 Paroxysmal atrial fibrillation (principal); Z79.01 Long term (current) use of anticoagulants; Z95.3 Presence of xenogenic heart valve
CPT/HCPCS: 36415; 85610

== ENCOUNTER → 2018-09-29 14:55 | Outpatient (CLI) | payer MEDICARE, OTHER, SELFPAY ==
[2018-09-29 12:58] VITALS: BMI 32.7
--- NOTE | 2018-09-29 15:00 | RAD_ITS ---
STUDY: X-RAY CHEST REASON FOR EXAM: Male, 77 years old. Shortness of breath TECHNIQUE: Frontal and lateral views of the chest COMPARISON: 06/19/2018 FINDINGS: The lungs are clear. There are no pleural effusions. There is no pneumothorax. The heart is enlarged, but stable. Again noted are sternotomy wires and a pacemaker. The visualized osseous structures are within normal limits. RAD/Chest PA and Lateral IMPRESSION: No acute thoracic pathology. Electronically Signed: Leonard Harmon, at 15:28 EDT Tel , Service support ,
[2018-09-29 16:13] LABS: Absolute Neutrophil Count 3.2 X10^3/uL (2.0-7.7); Basophil# 0.01 X10^3/uL; Basophil% 0.2 % (0-1); Eosinophil# 0.06 X10^3/uL; Eosinophils% 1.4 % (0-5); Hematocrit 34.3 % (40-54); Hemoglobin 11.4 g/dl (13.0-16.5); Lymphocyte % 13.7 % (19-41); Mean Corp Hgb Conc 33.2 g/gl (32-36); Mean Corpuscular Hgb 30.4 pg (27.0-32.0); Mean Corpuscular Volume 91.5 fL (80-94); Mean Platelet Vol. 10.2 fl (6.2-12.0); Monocyte# 0.53 X10^3/uL; Monocyte% 12.1 % (0-10); Neutrophil # 3.16 X10^3/uL (2.7-7.7); Neutrophil % 72.1 % (47-70); Platelet Count 179 K/mm3 (150-450); RBC Distribution Width CV 15.4 % (11.6-14.6); RBC Distribution Width SD 51.5 fl (35.1-43.9); Red Blood Count 3.75 M/mm3 (4.6-6.2); White Blood Count 4.4 K/mm3 (4.4-11.0)
[2018-09-29 16:17] LABS: Differential Indicated SCAN CRITERIA MET; POSITIVE COUNT NO; POSITIVE DIFFERENTIAL YES; POSITIVE MORPHOLOGY NO
[2018-09-29 16:28] LABS: Ferritin 44 ng/mL (26-388); Iron 101 ug/dL (65-175)
[2018-09-29 17:01] LABS: Anisocytosis 1+; Differential Comment SCANNED; Ovalocyte 1+; Platelet Estimate ADEQUATE (ADEQ); Tear Drop Cell 1+
== END ==
PROVIDERS: Family Provider Family Medicine; PCP Family Medicine; Referring Provider Nurse Practitioner Family; Visit Provider Nurse Practitioner Family
DX: I50.32 Chronic diastolic (congestive) heart failure (principal); D50.9 Iron deficiency anemia, unspecified; R06.09 Other forms of dyspnea
CPT/HCPCS: 36415; 71046; 82728; 83540; 83880; 85025

== ENCOUNTER 2018-10-26 10:13 | Outpatient (RCR) | payer MEDICARE, OTHER, SELFPAY ==
[2018-09-29 12:58] VITALS: BMI 32.7
[2018-10-26 12:27] LABS: Prothrombin Time (Protime)PT. 31.5 SECONDS (11.7-14.9)
[2018-10-26 13:14] LABS: PSA,Total- Diagnostic 0.36 ng/mL (0.0-4.0)
== END 2018-10-26 10:30 | disposition home or self-care (01) ==
LOC: MTLAB 10:13
PROVIDERS: Family Provider Family Medicine; PCP Family Medicine; Referring Provider Internal Medicine Cardiovascular Disease; Visit Provider Internal Medicine Cardiovascular Disease
DX: I48.0 Paroxysmal atrial fibrillation (principal); Z79.01 Long term (current) use of anticoagulants; Z95.3 Presence of xenogenic heart valve; C61 Malignant neoplasm of prostate
CPT/HCPCS: 36415; 84153; 85610

== ENCOUNTER 2018-11-23 09:43 | Inpatient (IN) | payer MEDICARE, OTHER, SELFPAY ==
[2018-09-29 12:58] VITALS: BMI 32.7
[2018-11-23] VITALS (37 sets, daily range): BP systolic 71–132; BP diastolic 40–75; PULSE 79–113; RESP 15–27; TEMP 36.1–37.3; O2SAT 94–100; BMI 32.4; BMI 33.1; BMI 33.2
--- NOTE | 2018-11-23 09:59 | ED.DCSUM_ITS ---
History of Present Illness Chief Complaint: GI Bleed Informant: Patient, Significant Other Onset: Days - Onset November 21 Context: Sudden Onset Timing: Continuous Quality: Black stool Location: Home Current Severity: Severe Maximum Severity: Severe Worsened by: Patient on anticoagulant Relieved by: Nothing Associated Symptoms: Decreased level of conscious, lack of energy, cannot stand Narrative: Patient is an elderly male with multiple medical problems who is not a good informant secondary to critical illness of his illness. He is hypotensive with a systolic pressure of 71 and diastolic pressure 40 he is tachycardic. He appears pale. He requires repeated stimulus. was the informant. Prior similar symptoms: No Recent Illness/Hospitalization: No - Past Medical History (1) Lung nodule Status: Chronic (2) Obesity (BMI 30.0-34.9) Status: Chronic (3) CLEMENT (obstructive sleep apnea) Status: Chronic (4) Chronic diastolic (congestive) heart failure Status: Chronic (5) Non-rheumatic tricuspid valve insufficiency Status: Chronic (6) Chronic atrial fibrillation Status: Chronic Comment: S/P MAZE procedure in 2016; (7) Secondary pulmonary arterial hypertension Status: Chronic (8) Presence of permanent cardiac pacemaker Status: Chronic Comment: Permanent pacemaker placement 02/02/16 (9) Sick sinus syndrome Status: Chronic (10) 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 Tolliver @ [facility] (15) Hyperlipidemia Status: Chronic (16) Status post aortic valve replacement with bioprosthetic valve Status: Chronic Comment: Aortic Valve Replacement w/ 23-mm Jay-Aragon pericardial valve Past Medical History - Allergies and Home Meds Allergies/Adverse Reactions: Allergies No Known Allergies Allergy (Verified 09/29/18 14:18) Primary Care Physician: Lei Funes DO [Primary Care Provider] - Prior records reviewed: Yes - Previously documented Surgical History: - - Left total knee replacement, R shoulder arthroscopic surgery, pacemaker, valve repair/replacement (prosthetic), gamma knife intervention, MAZE procedure. Lives: Spouse/ Significant Other Smoking Status: Former smoker Alcohol: None Drugs: None - Family History Maternal Family History: Family History (Last Reviewed 08/17/18 @ 10:27 by ALEX Huber) Mother Myocardial infarction CAD (coronary artery disease) Hypertension Sister Hypertension CVA (cerebral vascular accident) Son Diabetes Family History: Reports: Heart Disease, Hypertension Paternal Family History: Family History (Last Reviewed 08/17/18 @ 10:27 by ALEX Huber) Mother Myocardial infarction CAD (coronary artery disease) Hypertension Sister Hypertension CVA (cerebral vascular accident) Son Diabetes Family History: Reports: No pertinent history Sibling Family History: Family History (Last Reviewed 08/17/18 @ 10:27 by ALEX Huber) Mother Myocardial infarction CAD (coronary artery disease) Hypertension Sister Hypertension CVA (cerebral vascular accident) Son Diabetes Family History: Reports: Hypertension, Stroke Offspring Family History: Family History (Last Reviewed 08/17/18 @ 10:27 by ALEX Huber) Mother Myocardial infarction CAD (coronary artery disease) Hypertension Sister Hypertension CVA (cerebral vascular accident) Son Diabetes Family History: Reports: Diabetes Review of Systems ROS: Unable to Obtain - is the informant General: Reports: Malaise Gastrointestinal: Reports: Melena Hematologic: Reports: Easy bruising Physical Exam Vital Signs/Narrative: Vital Signs Temp Pulse Resp BP Pulse Ox 11/23/18 09:44 97 F L 113 H 16 71/41 L 96 Inital Vital Signs reviewed: Yes General: Well nourished, Well developed, - - Recent requires repeated verbal stimulus. He stares at times. Head: Normocephalic, Atraumatic Eyes: Perrl, EOMI, Pale conjunctiva. Negative for: Scleral icterus ENT: No rhinorrhea, TM's clear, Dry mucous membranes Neck: Supple, Nontender, No lymphadenopathy, No JVD Cardiovascular: Regular rhythm, No murmurs, Normal S1, Normal S2, Tachycardia Respiratory: No distress, CTA bilaterally Abdomen: Soft, Nontender, Nondistended, Normal bowel sounds, No masses Rectal: - - Stool is black or maroon in color Back: Nontender, Normal Inspection Extremities: Nontender Skin: Pallor Neurological: Cranial nerves II-XII grossly intact, Normal Strength - Lysed weakness. Negative for: Alert, Oriented x3, Normal Gait - Able to stand Psychological: - - Call to determine Diagnostic/Tx/Re-eval Laboratory Results 11/23/18 11/23/18 11/23/18 09:50 09:59 09:59 WBC 8.8 RBC 1.99 L Hgb 6.2 L Hct 19.2 L MCV 96.5 H MCH 31.2 MCHC 32.3 RDW Std Deviation 55.7 H RDW Coeff of Heidi 16.6 H Plt Count 170 MPV 10.3 Immature Gran % (Auto) 2.000 H Neut % (Auto) 80.8 H Lymph % (Auto) 9.2 L [place] % (Auto) 7.7 Eos % (Auto) 0.1 Baso % (Auto) 0.2 Absolute Neuts (auto) 7.1 Absolute Lymphs (auto) 0.81 L Nucleated RBC % 0.3 PT 38.3 H INR 3.9 H* APTT 47.8 H Sodium Potassium Chloride Carbon Dioxide Anion Gap BUN Creatinine Estim Creat Clear Calc Est GFR (MDRD) Af Amer Est GFR (MDRD) Non-Af BUN/Creatinine Ratio Glucose Lactic Acid 5.9 H* Calcium Blood Type Antibody Screen Crossmatch 11/23/18 11/23/18 09:59 09:59 WBC RBC Hgb Hct MCV MCH MCHC RDW Std Deviation RDW Coeff of Heiid Plt Count MPV Immature Gran % (Auto) Neut % (Auto) Lymph % (Auto) [place] % (Auto) Eos % (Auto) Baso % (Auto) Absolute Neuts (auto) Absolute Lymphs (auto) Nucleated RBC % PT INR APTT Sodium 135 L Potassium 5.6 H Chloride 108 H Carbon Dioxide 16.0 L Anion Gap 11 BUN 132 H* Creatinine 2.45 H Estim Creat Clear Calc 23.61 Est GFR (MDRD) Af Amer 33 L Est GFR (MDRD) Non-Af 27 L BUN/Creatinine Ratio 53.9 H Glucose 219 H Lactic Acid Calcium 9.1 Blood Type A POSITIVE Antibody Screen NEGATIVE Crossmatch See Detail Cisco studies confirm hemorrhagic shock. Patient's Coumadin was reversed using IV vitamin K and Kcentra. He is receiving 2 units of uncrossed matched blood. Dr. Campoverde is in the department and plan is to scope. Patient will need consent for EGD and sedation. Sedation to be provided by in. - Medical Decision Making Extra-articular GI bleed complicated by Coumadin. Vitamin K and Kcentra was ordered. Pharmacy was contacted to inform them of the order. Fluid bolus was ordered. He was typed and crossed for 2 units of blood. 2 IVs were established. He will require admission to intensive care unit. Obtain EKG to evaluate for cardiac ischemia since he has history of coronary disease. Basic metabolic panel was obtained to assess renal function and anion gap. Lactate was obtained to confirm that patient has hemorrhagic shock. Once blood is available will transfuse. Clinically his hemoglobin is low. Still erythema creases of the palm to suggest hemoglobin is greater than 6. Is receiving the proper dose of Kcentra and vitamin K. INR return to 3.9. Hemoglobin 6.2. Blood pressures improved to 81 systolic after fluid bolus. Uncrossed matched blood was ordered. The bilingual medical assistant and general surgeon on- call were paged to discuss if patient is appropriate to receive care at [facility] versus tertiary center. Spoke with blood bank. They stated type and screen with take 38 minutes. Since patient is in shock he will receive uncrossed match blood. Case was discussed with Dr. Hermann Campoverde. He will call back regarding availability of Endo nurses and equipment. Will administer IV Protonix. Case discussed with hospitalist. - Critical Care Time Critical care time (excluding procedures): 30-74 minutes - Medical care time excluding billable procedure time 42 minutes, Discussing w/Patient &/or Family/Fish Stringer Assembler, Discussing w/Consultants, Arranging Admission or Transfer, Performing Direct Patient Care at Bedside Procedures Procedure(s): Deep sedation with etomidate. Total time 9 minutes 25 seconds. Patient tolerated without complications. EGD performed by Dr. Campoverde. ED Disposition - Plan for ED Patient: Disposition: Acute Care Hospital [facility] Diagnosis: Nontraumatic hemorrhagic shock, Lower GI bleed requiring more than 4 units of blood in 24 hours, ICU, or surgery, Anemia due to blood loss, acute, Bleeding on Coumadin, Acute kidney injury Referrals: Lei Funes DO [Primary Care Provider] -
--- NOTE | 2018-11-23 10:07 | ED.RN ---
pale, hypotensive and sl tachycardic
[2018-11-23] MEDS: 0.9% Normal Saline 1,000 ML 1000 ML IV ×2 (10:08→10:57)
[2018-11-23 10:11] LABS: Absolute Lymphocyte Count 0.81 X10^3/uL (0.83-4.51); Absolute Neutrophil Count 7.1 X10^3/uL (2.0-7.7); Basophil# 0.02 X10^3/uL; Basophil% 0.2 % (0-1); Eosinophil# 0.01 X10^3/uL; Eosinophils% 0.1 % (0-5); Hematocrit 19.2 % (40-54); Hemoglobin 6.2 g/dL (13.0-16.5); Lymphocyte # 0.81 X10^3/ul (4.0); Lymphocyte % 9.2 % (19-41); Mean Corp Hgb Conc 32.3 g/dL (32-36); Mean Corpuscular Hgb 31.2 pg (27.0-32.0); Mean Corpuscular Volume 96.5 fL (80-94); Mean Platelet Vol. 10.3 fl (6.2-12.0); Monocyte# 0.68 X10^3/uL; Monocyte% 7.7 % (0-10); NRBC Flagged by Analyzer 0.3 % (0-5); Neutrophil # 7.13 X10^3/uL (2.7-7.7); Neutrophil % 80.8 % (47-70); Platelet Count 170 K/mm3 (150-450); RBC Distribution Width CV 16.6 % (11.6-14.6); RBC Distribution Width SD 55.7 fl (35.1-43.9); Red Blood Count 1.99 M/mm3 (4.6-6.2); White Blood Count 8.8 K/mm3 (4.4-11.0)
[2018-11-23 10:17] LABS: International Normalized Ratio 3.9; Prothrombin Time (Protime)PT. 38.3 SECONDS (11.7-14.9)
[2018-11-23 10:18] LABS: Partial Thromboplast Time 47.8 Seconds (24.1-36.2)
[2018-11-23 10:23] LABS: Anion Gap 11 (5-15); BUN 132 mg/dL (7-18); BUN/Creat Ratio 53.9 RATIO (10-20); Calcium,Total 9.1 mg/dL (8.5-10.1); Chloride 108 mmol/L (98-107); Creatinine, Serum 2.45 mg/dL (0.70-1.30); EST Glomerular Filtration Rate 27 mL/min (>60); Est Glom Filt Rate - Afr Amer 33 mL/min (>60); Estimated Creatinine Clearance 23.61 ml/min; Glucose 219 mg/dL (74-106); Potassium 5.6 mmol/L (3.5-5.1); Sodium Level 135 mmol/L (136-145)
--- NOTE | 2018-11-23 10:23 | ED.RN ---
LAB RESULTED BUN 132, INR 3.9. PHYSICIAN NOTIFIED
[2018-11-23] MEDS: HUMAN PROTHROMBIN COMPLX(PCC) 2,500 UNIT in Viaflex Bag 1 BAG 500 UNIT IV (10:26)
[2018-11-23 10:56] LABS: Lactic Acid 5.9 mmol/L (0.4-2.0)
--- NOTE | 2018-11-23 11:10 | CON.PCM_ITS ---
Problem List (1) Upper GI bleed Status: Acute Reason for Consult Date of Consultation: 11/23/18 Reason for Consultation: Upper GI bleed with hemorrhagic shock History of Present Illness: The patient is a 78 year old M presented to the emergency room with weakness and fatigue. On history patient reports that he had bloody vomiting 2 days ago. He is also been having black stools. He does not know how long black stools been g oing on. He does not admit to any abdominal pain. He has a history of severe bleed from a duodenal ulcer 2 years ago. He is not on a PPI. Patient is on Coumadin and Pletal. He was given Kcentra as well as blood in the emergency room. Past Medical History Past Medical History (Chronic Problems): Chronic Problems (Last Reviewed 08/17/18 @ 10:27 by Brissa Santoro BRICK AND TILE MAKING MACHINE OPERATOR-C) Lung nodule (Chronic) Obesity (BMI 30.0-34.9) (Chronic) CLEMENT (obstructive sleep apnea) (Chronic) Chronic diastolic (congestive) heart failure (Chronic) Diastolic dysfunction (Chronic) Non-rheumatic tricuspid valve insufficiency (Chronic) Chronic atrial fibrillation (Chronic) S/P MAZE procedure in 2016; Secondary pulmonary arterial hypertension (Chronic) Presence of permanent cardiac pacemaker (Chronic) Permanent pacemaker placement 02/02/16 Sick sinus syndrome (Chronic) 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 Tolliver @ [facility] Hyperlipidemia (Chronic) Status post mitral valve repair (Chronic) mitral valve repair and MAZE procedure 01/24/[address] Tolliver @ [facility] 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) Aortic Valve Replacement w/ 23-mm Jay-Aragon pericardial valve Medical History: Medical History (Last Reviewed 08/17/18 @ 10:27 by Brissa Santoro BRICK AND TILE MAKING MACHINE OPERATOR-C) Chronic diastolic (congestive) heart failure (Chronic) I50.32 Diastolic dysfunction (Chronic) I51.89 Non-rheumatic tricuspid valve insufficiency (Chronic) I36.1 Chronic atrial fibrillation (Chronic) I48.2 S/P MAZE procedure in 2016; Secondary pulmonary arterial hypertension (Chronic) I27.21 Sick sinus syndrome (Chronic) I49.5 Nonrheumatic mitral valve regurgitation (Chronic) I34.0 Nonrheumatic aortic (valve) stenosis (Chronic) I35.0 Nonrheumatic aortic (valve) insufficiency (Chronic) I35.1 Carotid artery stenosis (Chronic) I65.29 Atherosclerotic heart disease of [place] coronary artery without angina pectoris (Chronic) I25.10 Hyperlipidemia (Chronic) E78.5 Anemia D64.9 Duodenal ulcer K26.9 Fracture of right pubis S32.501A GI bleed K92.2 Hypothyroidism E03.9 Obstructive sleep apnea G47.33 Osteoporosis M81.0 Pancytopenia D61.818 Rib fracture S22.39XA Type 2 diabetes mellitus E11.9 Pneumonia (Resolved) J18.9 Sepsis A41.9 Severe sepsis (Resolved) A41.9, R65.20 Shortness of breath (Resolved) R06.02 Allergies No Known Allergies Allergy (Verified 09/29/18 14:18) Home Medications: Ambulatory Orders Medication Instructions Recorded Cilostazol [Pletal] 100 mg PO BID 12/07/17 Potassium Chloride [K-Dur] 10 meq PO DAILY 01/07/18 glimepiride 4 mg tablet 2 mg PO DAILY@0800 tab 01/22/18 lisinopril 5 mg tablet 5 mg PO DAILY #90 tab 01/22/18 metformin 500 mg tablet 1,000 mg PO BIDCM tab 01/22/18 furosemide 40 mg tablet 40 mg PO DAILY #90 tab 02/03/18 pioglitazone 30 mg tablet 45 mg PO DAILY@0800 tab 03/05/18 warfarin 5 mg tablet 5 mg PO .COMPLEX #180 tab 04/08/18 ferrous sulfate 325 mg (65 mg PO 30 Days #60 tab 05/21/18 iron) tablet carvedilol 12.5 mg tablet 12.5 mg PO BID #180 tab 07/24/18 Surgical History: Surgical History (Last Reviewed 08/17/18 @ 10:27 by ALEX Huber) History of aortic valve replacement with bioprosthetic valve (Resolved) Onset Date: 01/24/16 Z95.3 Aortic Valve Replacement w/ 23-mm Jay-Aragon pericardial valve 01/24/16 H/O mitral valve repair (Resolved) Onset Date: 01/24/16 Z98.890 mitral valve repair and MAZE procedure 01/24/[address] Tolliver @ [facility] Presence of permanent cardiac pacemaker (Chronic) Z95.0 Permanent pacemaker placement 02/02/16 History of maze procedure (Chronic) Onset Date: 01/24/16 Z98.890 mitral valve repair and MAZE procedure 01/24/[address] Tolliver @ [facility] Status post mitral valve repair (Chronic) Z98.890 mitral valve repair and MAZE procedure 01/24/[address] 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 Psychiatric History: No pertinent psych hx Lives: Spouse/ Significant Other Smoking Status: Never smoker Alcohol: None Drugs: None - *Family History Maternal Family History: Family History (Last Reviewed 08/17/18 @ 10:27 by ALEX Huber) Mother Myocardial infarction CAD (coronary artery disease) Hypertension Sister Hypertension CVA (cerebral vascular accident) Son Diabetes History Items: Heart Disease, Hypertension Paternal Family History: Family History (Last Reviewed 08/17/18 @ 10:27 by ALEX Huber) Mother Myocardial infarction CAD (coronary artery disease) Hypertension Sister Hypertension CVA (cerebral vascular accident) Son Diabetes History Items: No pertinent history Sibling Family History: Family History (Last Reviewed 08/17/18 @ 10:27 by ALEX Huber) Mother Myocardial infarction CAD (coronary artery disease) Hypertension Sister Hypertension CVA (cerebral vascular accident) Son Diabetes History Items: Hypertension, Stroke Offspring Family History: Family History (Last Reviewed 08/17/18 @ 10:27 by ALEX Huber) Mother Myocardial infarction CAD (coronary artery disease) Hypertension Sister Hypertension CVA (cerebral vascular accident) Son Diabetes History Items: Diabetes Review of Systems Constitutional: Denies: Anorexia, Chills, Fever Eyes: Denies: Blurred vision HEENT: Reports: Difficulty Hearing Cardiovascular: Denies: Chest Pain Respiratory: Denies: Cough, Shortness of Breath Gastrointestinal: Reports: Nausea, Melena. Denies: Abdominal Pain Genitourinary: Denies: Dysuria Musculoskeletal: Denies: Joint Tenderness Skin: Denies: Dryness, Jaundice Neurological: Denies: Blurred vision Psychiatric: Denies: Anxiety, Depression Hematologic/ Lymphatic: Reports: Anemia, Easy Bleeding Patient Problems: Active and Suspected Problems (Last Reviewed 08/17/18 @ 10:27 by ALEX Huber) Upper GI bleed (Acute) - Physical Exam General: Alert, Cooperative Neck: No JVD Lungs: Normal air movement Cardiovascular: Tachycardic Abdomen: Soft, Non Tender Extremities: No clubbing Skin: No rashes Musculoskeletal: No Muscle Wasting Neurological: Cranial nerves II-XII grossly intact Psych/Mental Status: Normal Affect Vital Signs Temp Pulse Resp BP Pulse Ox 99.1 F 99 16 92/52 L 97 11/23/18 10:53 11/23/18 10:53 11/23/18 10:53 11/23/18 10:53 11/23/18 10:53 Weight: 207 lb Body Mass Index (BMI) 32.4 Finger Stick Blood Glucose 235 Intake and Output for Last 24 Hours 11/21/18 11/22/18 11/23/18 23:59 23:59 23:59 Intake Total 0 / 0 Balance 0 / 0 Laboratory Tests Past 24 Hrs 11/23/18 11/23/18 11/23/18 09:50 09:59 09:59 WBC 8.8 RBC 1.99 L Hgb 6.2 L Hct 19.2 L MCV 96.5 H MCH 31.2 MCHC 32.3 RDW Std Deviation 55.7 H RDW Coeff of Heidi 16.6 H Plt Count 170 MPV 10.3 Immature Gran % (Auto) 2.000 H Neut % (Auto) 80.8 H Lymph % (Auto) 9.2 L [place] % (Auto) 7.7 Eos % (Auto) 0.1 Baso % (Auto) 0.2 Absolute Neuts (auto) 7.1 Absolute Lymphs (auto) 0.81 L Nucleated RBC % 0.3 PT 38.3 H INR 3.9 H* APTT 47.8 H Sodium Potassium Chloride Carbon Dioxide Anion Gap BUN Creatinine Estim Creat Clear Calc Est GFR (MDRD) Af Amer Est GFR (MDRD) Non-Af BUN/Creatinine Ratio Glucose Lactic Acid 5.9 H* Calcium Blood Type Antibody Screen Crossmatch 11/23/18 11/23/18 09:59 09:59 WBC RBC Hgb Hct MCV MCH MCHC RDW Std Deviation RDW Coeff of Heidi Plt Count MPV Immature Gran % (Auto) Neut % (Auto) Lymph % (Auto) [place] % (Auto) Eos % (Auto) Baso % (Auto) Absolute Neuts (auto) Absolute Lymphs (auto) Nucleated RBC % PT INR APTT Sodium 135 L Potassium 5.6 H Chloride 108 H Carbon Dioxide 16.0 L Anion Gap 11 BUN 132 H* Creatinine 2.45 H Estim Creat Clear Calc 23.61 Est GFR (MDRD) Af Amer 33 L Est GFR (MDRD) Non-Af 27 L BUN/Creatinine Ratio 53.9 H Glucose 219 H Lactic Acid Calcium 9.1 Blood Type Pending Antibody Screen Pending Crossmatch See Detail Assessment/Plan All Active Problems (Last Reviewed 08/17/18 @ 10:27 by Brissa Santoro, PAULETTE-C) Upper GI bleed (Acute) History of aortic valve replacement with bioprosthetic valve (Resolved 01/24/16) H/O mitral valve repair (Resolved 01/24/16) Aortic stenosis, severe (Resolved) Hypokalemia (Resolved) Pneumonia (Resolved) Severe sepsis (Resolved) Shortness of breath (Resolved) Supratherapeutic INR (Resolved) 78-year-old male with upper GI bleed 1. Patient has a history of upper GI bleed from duodenal ulcer in 2017. This was treated conservatively and resolved. The patient reports that he has had black stools and he did have an episode of bloody vomit. The patient was in shock when he presented to the emergency room with a pressure in the 70s and tachycardia. He was given Kcentra and blood and vitamin K. Patient is on Pletal and Coumadin. 2. I plan to perform an emergency EGD in the emergency room. If the bleeding has ceased and appears stable he may be admitted to the ICU for observation and treatment. If there is a visible vessel or active bleeding which is uncontrolled he will be transferred for IR intervention. 3. I explained endoscopy in detail to the patient. I explained the risks including but not limited to stroke or heart attack with anesthesia, perforation of the GI tract, bleeding, infection. I explained that any of these could necessitate further emergency surgery. The patient understands and all questions were answered sufficiently. The patient wishes to proceed with procedure. Hermann Campoverde MD Pager: [facility] [address] [place] [address] [address] [place] [address] Office:
--- NOTE | 2018-11-23 11:18 | EKG12_ITS ---
Test Reason : DYSRHYTHMIA Blood Pressure : / mmHG Vent. Rate : 101 BPM Atrial Rate : 101 BPM P-R Int : 160 ms QRS Dur : 132 ms QT Int : 382 ms P-R-T Axes : 000 -22 017 degrees QTc Int : 495 ms Sinus tachycardia with Premature ventricular complexes or Fusion complexes Right bundle branch block Inferior infarct , age undetermined Abnormal ECG Confirmed by TERRY GUERRERO, KAMRAN ([id number]), manuscript editor ART LIRIANO ([id number]) on 11/24/2018 1:42:09 PM Referred By: Rica Read Confirmed By:KAMRAN STEWART MD
--- NOTE | 2018-11-23 11:25 | ED.RN ---
BLOOD TRANSFUSION RATE INCREASED PER DR LAGOS
--- NOTE | 2018-11-23 11:48 | PCM.HP.STD ---
Problem List (1) Upper GI bleed Status: Acute (2) Acute blood loss anemia Status: Acute (3) HTN (hypertension) Status: Chronic Qualifiers: Hypertension type: essential hypertension Qualified Code(s): I10 - Essential (primary) hypertension (4) Obesity (BMI 30.0-34.9) Status: Chronic (5) CLEMENT (obstructive sleep apnea) Status: Chronic (6) Chronic diastolic (congestive) heart failure Status: Chronic (7) Chronic atrial fibrillation Status: Chronic Comment: S/P MAZE procedure in 2016; (8) Secondary pulmonary arterial hypertension Status: Chronic (9) History of aortic valve replacement with bioprosthetic valve Status: Resolved Comment: Aortic Valve Replacement w/ 23-mm Jay-Aragon pericardial valve 01/24/16 (10) H/O mitral valve repair Status: Resolved Comment: mitral valve repair and MAZE procedure 01/24/[address] Tolliver @ [facility] (11) Presence of permanent cardiac pacemaker Status: Chronic Comment: Permanent pacemaker placement 02/02/16 (12) Sick sinus syndrome Status: Chronic (13) Carotid artery stenosis Status: Chronic Qualifiers: Laterality: unspecified laterality Qualified Code(s): I65.29 - Occlusion and stenosis of unspecified carotid artery (14) Atherosclerotic heart disease of [place] coronary artery without angina pectoris Status: Chronic Qualifiers: [place] vs. transplanted heart: [place] heart Qualified Code(s): I25.10 - Atherosclerotic heart disease of [place] coronary artery without angina pectoris (15) History of maze procedure Status: Chronic Comment: mitral valve repair and MAZE procedure 01/24/[address] Tolliver @ [facility] (16) Hyperlipidemia Status: Chronic Qualifiers: Hyperlipidemia type: pure hypercholesterolemia Qualified Code(s): E78.00 - Pure hypercholesterolemia, unspecified (17) Iron deficiency anemia Status: Chronic Qualifiers: Iron deficiency anemia type: unspecified iron deficiency Qualified Code(s): D50.9 - Iron deficiency anemia, unspecified History of Present Illness Date of Admission: 11/23/18 Chief Complaint: GI bleed. The patient is a 78 y/o M w/ PMHx: PAF s/p MAZE anticoagulated chronically with Coumadin, Diabetes mellitus type II, GERD w/ Hx duodenal Ulcer, Valvular Heart Disease s/p MV Repair and AVR w/ bovine bioprosthetic valve, Diastolic CHF, PAD/Carotid Disease, CLEMENT and CPAP nightly, HTN, HLD, history of sick sinus syndrome s/p pacemaker status, Osteoarthritis, Anxiety and Depression, Obesity who presents to the [facility] ED on 11/23/18 with history of onset nausea, emesis, diarrhea starting Friday with at that time black tarry appearing stools with poor oral intake tolerance but no associated abdominal cramping or pain and no recent ill contacts. He denied any fevers or chills, recent antibiotic therapies. He states with this current presentation he has been more fatigued and weak. He notes that initially when diarrhea onset started he had severe diarrhea but over the last 48 hours diarrhea has lessened to 1-3 times. Work-up in the ED included T 98.7, heart rate 113, BP initially 71/41 with improvement to 99/56, respiratory rate 16, 97% on 2 L nasal cannula, CBC with WC 8.8, hemoglobin 6.2, platelet 170 with mild left shift, coags with PT 38.3, INR 3.9, PTT 47.8, BMP with sodium 135, potassium 5.6, chloride 108, carbon dioxide 16, anion gap 11, BUN 132, creatinine 2.45, glucose 219, lactic acid 5.9, 2 unit PRBC ordered and initiated per ED, Kcentra ordered and initiated per ED. In the ED additional medications included etomidate, IV pantoprazole, vitamin K IV, normal saline 2 L. Per ED general surgery immediately contacted given acute presentation with GI bleed, anemia and hypotension on anticoagulants and therapy, EGD performed in the emergency room with no evidence of old blood in the stomach or duodenum with no ulceration with some small noted punctate bleeding in the stomach but no clot or old blood. Past Medical History Past Medical History (Chronic Problems): Chronic Problems (Last Reviewed 08/17/18 @ 10:27 by Brissa Santoro NP-[place]) HTN (hypertension) (Chronic) Iron deficiency anemia (Chronic) Lung nodule (Chronic) Obesity (BMI 30.0-34.9) (Chronic) CLEMENT (obstructive sleep apnea) (Chronic) Chronic diastolic (congestive) heart failure (Chronic) Diastolic dysfunction (Chronic) Non-rheumatic tricuspid valve insufficiency (Chronic) Chronic atrial fibrillation (Chronic) S/P MAZE procedure in 2016; Secondary pulmonary arterial hypertension (Chronic) Presence of permanent cardiac pacemaker (Chronic) Permanent pacemaker placement 02/02/16 Sick sinus syndrome (Chronic) snf (current) use of anticoagulants (Chronic) Nonrheumatic mitral valve regurgitation (Chronic) Nonrheumatic aortic (valve) stenosis (Chronic) Nonrheumatic aortic (valve) insufficiency (Chronic) Carotid artery stenosis (Chronic) Atherosclerotic heart disease of [place] coronary artery without angina pectoris (Chronic) History of maze procedure (Chronic 01/24/16) mitral valve repair and MAZE procedure 01/24/[address] Tolliver @ [facility] Hyperlipidemia (Chronic) Status post mitral valve repair (Chronic) mitral valve repair and MAZE procedure 01/24/[address] Tolliver @ [facility] 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) Aortic Valve Replacement w/ 23-mm Jay-Aragon pericardial valve Medical History: Medical History (Last Reviewed 08/17/18 @ 10:27 by Brissa Santoro NP-C) Chronic diastolic (congestive) heart failure (Chronic) I50.32 Diastolic dysfunction (Chronic) I51.89 Non-rheumatic tricuspid valve insufficiency (Chronic) I36.1 Chronic atrial fibrillation (Chronic) I48.2 S/P MAZE procedure in 2016; Secondary pulmonary arterial hypertension (Chronic) I27.21 Sick sinus syndrome (Chronic) I49.5 Nonrheumatic mitral valve regurgitation (Chronic) I34.0 Nonrheumatic aortic (valve) stenosis (Chronic) I35.0 Nonrheumatic aortic (valve) insufficiency (Chronic) I35.1 Carotid artery stenosis (Chronic) I65.29 Atherosclerotic heart disease of [place] coronary artery without angina pectoris (Chronic) I25.10 Hyperlipidemia (Chronic) E78.5 Anemia D64.9 Duodenal ulcer K26.9 Fracture of right pubis S32.501A GI bleed K92.2 Hypothyroidism E03.9 Obstructive sleep apnea G47.33 Osteoporosis M81.0 Pancytopenia D61.818 Rib fracture S22.39XA Type 2 diabetes mellitus E11.9 Pneumonia (Resolved) J18.9 Sepsis A41.9 Severe sepsis (Resolved) A41.9, R65.20 Shortness of breath (Resolved) R06.02 Allergies No Known Allergies Allergy (Verified 09/29/18 14:18) Home Medications: Ambulatory Orders Medication Instructions Recorded Cilostazol [Pletal] 100 mg PO BID 12/07/17 Potassium Chloride [K-Dur] 10 meq PO DAILY 01/07/18 glimepiride 4 mg tablet 2 mg PO DAILY@0800 tab 01/22/18 lisinopril 5 mg tablet 5 mg PO DAILY #90 tab 01/22/18 metformin 500 mg tablet 1,000 mg PO BIDCM tab 01/22/18 furosemide 40 mg tablet 40 mg PO DAILY #90 tab 02/03/18 pioglitazone 30 mg tablet 45 mg PO DAILY@0800 tab 03/05/18 ferrous sulfate 325 mg (65 mg 1 tab PO DAILY 30 Days #60 tab 05/21/18 iron) tablet carvedilol 12.5 mg tablet 12.5 mg PO BID #180 tab 07/24/18 Aspirin 81 mg PO DAILY 11/23/18 Warfarin [Coumadin] 7.5 mg PO .COMPLEX 11/23/18 Surgical History: Surgical History (Last Reviewed 08/17/18 @ 10:27 by Brissa Santoro NP-C) History of aortic valve replacement with bioprosthetic valve (Resolved) Onset Date: 01/24/16 Z95.3 Aortic Valve Replacement w/ 23-mm Jay-Aragon pericardial valve 01/24/16 H/O mitral valve repair (Resolved) Onset Date: 01/24/16 Z98.890 mitral valve repair and MAZE procedure 01/24/[address] Tolliver @ [facility] Presence of permanent cardiac pacemaker (Chronic) Z95.0 Permanent pacemaker placement 02/02/16 History of maze procedure (Chronic) Onset Date: 01/24/16 Z98.890 mitral valve repair and MAZE procedure 01/24/[address] Tolliver @ [facility] Status post mitral valve repair (Chronic) Z98.890 mitral valve repair and MAZE procedure 01/24/[address] 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 Psychiatric History: No pertinent psych hx Lives: Spouse/ Significant Other Smoking Status: Never smoker Alcohol: None Drugs: None - *Family History Maternal Family History: Family History (Last Reviewed 08/17/18 @ 10:27 by ALEX Huber) Mother Myocardial infarction CAD (coronary artery disease) Hypertension Sister Hypertension CVA (cerebral vascular accident) Son Diabetes History Items: Heart Disease, Hypertension Paternal Family History: Family History (Last Reviewed 08/17/18 @ 10:27 by ALEX Huber) Mother Myocardial infarction CAD (coronary artery disease) Hypertension Sister Hypertension CVA (cerebral vascular accident) Son Diabetes History Items: Heart Disease, Hypertension Sibling Family History: Family History (Last Reviewed 08/17/18 @ 10:27 by ALEX Huber) Mother Myocardial infarction CAD (coronary artery disease) Hypertension Sister Hypertension CVA (cerebral vascular accident) Son Diabetes History Items: Hypertension, Stroke Offspring Family History: Family History (Last Reviewed 08/17/18 @ 10:27 by ALEX Huber) Mother Myocardial infarction CAD (coronary artery disease) Hypertension Sister Hypertension CVA (cerebral vascular accident) Son Diabetes History Items: Diabetes Review of Systems Constitutional: Reports: Malaise, Weakness, Fatigue. Denies: Chills, Fever, Weight Change HEENT: Denies: Head Aches, Sinus Congestion, Sinus Drainage Cardiovascular: Reports: Light Headedness. Denies: Chest Pain, Palpitations Respiratory: Denies: Cough, Shortness of breath at rest, Sputum production Gastrointestinal: Reports: Diarrhea, Hematemesis, Nausea, Melena, Vomiting. Denies: Abdominal Pain Genitourinary: Denies: Dysuria Musculoskeletal: Reports: Joint Pain. Denies: Joint Tenderness Skin: Denies: Rash, Wounds Neurological: Denies: Numbness, Tingling, Focal weakness Psychiatric: Reports: Anxiety, Depression. Denies: Homicidal Ideations, Suicidal Ideations Hematologic/ Lymphatic: Reports: Anemia, Easy Bruising, Easy Bleeding VTE Information - Inpt Only VTE Present on Admission: No VTE Mechan Device Prophylaxis: SCD's VTE Pharm Prophylaxis ordered?: No Reason prophylaxis not ordered:: Medical Contraindication Patient Problems: Active and Suspected Problems (Last Reviewed 08/17/18 @ 10:27 by ALEX Huber) Upper GI bleed (Acute) Acute blood loss anemia (Acute) Subjective: Seated upright in the ED bed, mildly lethargic, recent sedation with endoscopy, currently no acute distress, BP still low normal. Objective: Physical Examination: General: awake, alert, oriented x 3 and cooperative, seated upright in the ED bed, fatigued, recent endoscopy with mild sedation no acute distress. Skin: Pale color, turgor, no icterus, cyanosis. HEENT: AT/NC, EOMI, PERRLA, dry MM, no carotid bruits or JVD noted. Lungs: Diminished breath, greater bases, moderate effort, no rales, rhonchi or wheezing. Heart: Mildly tachycardic with regular rhythm; no gallop, rub audible, SM. Abdomen: soft, obese, NTTP, ND, normal BS, no HSM. Extremities: no cyanosis, clubbing, BL ankle nonpitting edema. Neurological: patient awake, alert, oriented x 3; cognitive function intact; pupils equally reactive to light and accomodation; cranial nerves II-XII grossly normal, moving all 4 extremities, no focal deficits, strength severely globally decreased secondary to acute presentation. Psychiatric: affect appears fatigued, no acute evidence of depressive or anxiety feelings. - Physical Exam Vital Signs Temp Pulse Resp BP Pulse Ox 99.1 F 99 16 92/52 L 97 11/23/18 10:53 11/23/18 10:53 11/23/18 10:53 11/23/18 10:53 11/23/18 10:53 Oxygen Flow Rate (L/min) 2 Oxygen Delivery Method Nasal Cannula Weight: 207 lb Body Mass Index (BMI) 32.4 Finger Stick Blood Glucose 235 Intake and Output for Last 24 Hours 11/21/18 11/22/18 11/23/18 23:59 23:59 23:59 Intake Total 0 / 0 Balance 0 / 0 Laboratory Tests Past 24 Hrs 11/23/18 11/23/18 11/23/18 09:50 09:59 09:59 WBC 8.8 RBC 1.99 L Hgb 6.2 L Hct 19.2 L MCV 96.5 H MCH 31.2 MCHC 32.3 RDW Std Deviation 55.7 H RDW Coeff of Heidi 16.6 H Plt Count 170 MPV 10.3 Immature Gran % (Auto) 2.000 H Neut % (Auto) 80.8 H Lymph % (Auto) 9.2 L Archuleta % (Auto) 7.7 Eos % (Auto) 0.1 Baso % (Auto) 0.2 Absolute Neuts (auto) 7.1 Absolute Lymphs (auto) 0.81 L Nucleated RBC % 0.3 PT 38.3 H INR 3.9 H* APTT 47.8 H Sodium Potassium Chloride Carbon Dioxide Anion Gap BUN Creatinine Estim Creat Clear Calc Est GFR (MDRD) Af Amer Est GFR (MDRD) Non-Af BUN/Creatinine Ratio Glucose Lactic Acid 5.9 H* Calcium Blood Type Antibody Screen Crossmatch 11/23/18 11/23/18 09:59 09:59 WBC RBC Hgb Hct MCV MCH MCHC RDW Std Deviation RDW Coeff of Heidi Plt Count MPV Immature Gran % (Auto) Neut % (Auto) Lymph % (Auto) Archuleta % (Auto) Eos % (Auto) Baso % (Auto) Absolute Neuts (auto) Absolute Lymphs (auto) Nucleated RBC % PT INR APTT Sodium 135 L Potassium 5.6 H Chloride 108 H Carbon Dioxide 16.0 L Anion Gap 11 BUN 132 H* Creatinine 2.45 H Estim Creat Clear Calc 23.61 Est GFR (MDRD) Af Amer 33 L Est GFR (MDRD) Non-Af 27 L BUN/Creatinine Ratio 53.9 H Glucose 219 H Lactic Acid Calcium 9.1 Blood Type A POSITIVE Antibody Screen NEGATIVE Crossmatch See Detail Assessment/Plan All Active Problems (Last Reviewed 08/17/18 @ 10:27 by Brissa Santoro, MILL HELPER-C) Upper GI bleed (Acute) Acute blood loss anemia (Acute) History of aortic valve replacement with bioprosthetic valve (Resolved 01/24/16) H/O mitral valve repair (Resolved 01/24/16) Aortic stenosis, severe (Resolved) Hypokalemia (Resolved) Pneumonia (Resolved) Severe sepsis (Resolved) Shortness of breath (Resolved) Supratherapeutic INR (Resolved) The patient is a 78 y/o M w/ PMHx: PAF s/p MAZE anticoagulated chronically with Coumadin, Diabetes mellitus type II, GERD w/ Hx duodenal Ulcer, Valvular Heart Disease s/p MV Repair and AVR w/ bovine bioprosthetic valve, Diastolic CHF, PAD/Carotid Disease, CLEMENT and CPAP nightly, HTN, HLD, history of sick sinus syndrome s/p pacemaker status, Osteoarthritis, Anxiety and Depression, Obesity who presents to the [facility] ED on 11/23/18 with history of onset nausea, emesis, diarrhea starting Friday with at that time black tarry appearing stools with poor oral intake tolerance but no associated abdominal cramping or pain and no recent ill contacts. He denied any fevers or chills, recent antibiotic therapies. 1. Hemorrhagic shock secondary to acute GI Bleed w/ resultant Acute Blood Loss Anemia, located by chronic anticoagulation with Coumadin with history of chronic iron deficiency anemia: Patient w/ hematemesis as well as dark black tarry stools starting with nausea, emesis and diarrhea over the weekend, admission Hgb 6.2 with last hemoglobin in September 15.4 which appears his baseline. In the ED patient administered vitamin K IV as well as Kcentra, EGD performed in the emergency room with no evidence of old blood in the stomach or duodenum with no ulceration with some small noted punctate bleeding in the stomach but no clot or old blood. Given still hypotensive presentation although stable currently will admit to the ICU, cider press operator aware and consulted, continue fluids as well as 2 unit PRBC administration with serial H+H q 6 hours, maintain on IV PPI. Per general surgery, Dr. Campoverde will allow clears at this time. 2. Lactic acidosis: Admission lactic acid 5.9, secondary to #1 as noted, continue to trend, hydrating as noted, PRBC ministration as noted. 3. Acute kidney injury: Secondary to acute GIB presentation as noted #1. Admission BUN/Cr 132/2.45, prior baseline creatinine noted to be 0.9-1.3. Will hydrate gently given concurrent PRBC administration and underlying history of chronic diastolic CHF, hold nephrotoxic medications and repeat chemistry in AM. If no improvement would plan FeNa and renal ultrasound assessment. 4. Hyperkalemia: Admission potassium 5.6, will repeat BMP given acute interventions, hydration, as noted PRN IV Lasix given PRBC and fluids with history of chronic diastolic CHF, trend. 5. N/V/D, ? Gastroenteritis versus secondary to acute #1: We will continue cautious hydration given concurrent 2 unit PRBC administration as well as underlying chronic diastolic CHF history, no recent antibiotic therapy, will obtain stool culture as well as LF assessment, add C. difficile if further concern, repeat AM CBC. Will not start antibiotics at this time given unclear source pending stool studies as may be viral gastroenteritis. Anti-emetics, pain regimen PRN. 6. Valvular Heart Disease: s/p MV Repair and AVR w/ bovine bioprosthetic valve, 11/15/16 ECHO w/ moderate concentric LVH, EF 65%, moderately dilated RV, severely enlarged LA, severe enlarged RA, moderate diffuse MV thickening, moderate MV stenosis, moderately severe TV insufficiency, moderate pulmonary hypertension, RVSP 49 mmHg. 7. Diastolic CHF: Given acute presentation with hemorrhagic shock holding Coumadin therapy as well as Pletal, holding Coreg, Lasix, lisinopril with as needed IV PRN regimen between PRBC if necessary. 8. PAF s/p MAZE: Given acute presentation, reversal of Coumadin with continued hold as well as hold on hypertensive regimen. 07/15/18 echo with evidence status post mitral valve repair with anoplasty ring, normal LV size, severe concentric LVH, LV systolic function normal, EF 60%, stage III diastolic dysfunction, moderate TBI, moderate pulmonary hypertension, bioprosthetic aortic valve present, calculated aortic valve area 1.6 cm?. 9. Diabetes mellitus type II: Hold oral home regimen, status post endoscopy with clearance per general surgery to start clear liquids, accu checks w/ ISS every 6 hours 1 clear liquids. 10. GERD w/ Hx duodenal Ulcer: As noted recent endoscopy upper with no evidence of recurrent duodenal ulcer. IV PPI. 11. PAD/Carotid Disease: Maintain on home asa, pletal. 12. Anxiety and Depression: Maintain on home sertraline regimen. 13. CLEMENT: CPAP q HS. 14. Hx Sick Sinus Syndrome: s/p pacemaker placement, 09/17/18 pacemaker check directed per cardiology. 15. DVT prophylaxis: SCDs, holding given noted acute presentation #1. Code Visit Inpatient E&M: 80071 Init Hosp L3
--- NOTE | 2018-11-23 12:12 | OP.ENDO_ITS ---
11/23/2018 Lei Funes [address] [place] [address] Re : Upper GI endoscopy procedure for Kathy Guajardo Dear Dr. Funes This procedure was performed on Friday, November 23, 2018. My impressions and recommendations are as follows: Impressions : - Chronic gastritis with hemorrhage. - No specimens collected. Recommendations : - Observe patient in emergency room for ongoing care. - Clear liquid diet. - Use a proton pump inhibitor IV BID. - The patient has taken no previous anticoagulant or antiplatelet agents and therefore does not require instructions for their resumption. My findings are described in the full procedure note, which is enclosed. If I can be of further assistance, please feel free to contact me at Doctor phone number(s): , Work: . Sincerely, Hermann Campoverde MD 11/23/2018 12:11:35 PM This report has been signed electronically.
--- NOTE | 2018-11-23 12:12 | PCM.PN.BLA ---
Progress Note I performed an EGD in the emergency room. Patient had no old blood in his stomach or duodenum. There was no ulceration noted. He did have a few small punctate bleeding in the stomach but no clot or old blood in the stomach contents. At this point I believe that he had an upper GI bleed a few days ago when he was having a bloody vomiting in the melena. This may have stopped and his hemoglobin may still be low. He is responding to boluses and transfusion. I would recommend admitting to the ICU for observation and he can have a clear liquid diet. Continue serial hemoglobin checks and finish the transfusion. IV PPI twice daily. If his stool becomes red in color instead of melanotic I can perform a lower endoscopy. At this point I believe that the site of bleeding was upper GI in nature due to his symptoms. Hermann Campoverde MD Pager: [facility] [address] [place] [address], [address] [place] [address] Office:
--- NOTE | 2018-11-23 12:15 | CASEMGMT ---
RN CM Assessment Introduced role of RN CM to patient, patient Jessi and son Momo at bedside. Patient alert and [place] and has hearing aids- not in during this time. Information obtained from patient jody Barr and patient Jessi. ?Care providers, pharmacy, and demographics verified. Presentation: Black stool, on anticoagulation. +Pale, +Tachycardic, +Hypotensive Admit Dx: GIB Re-Admit: No Barriers/Issues: None PCP: Lei Funes Specialists: Cardio- Dr Ayoub Preferred Pharmacy: [facility] Insurance: [facility], Physician [place] Rx Benefit:?Yes LNOK: Jessi Guajardo, Son Momo Guajardo, Son Bebo Guajardo LW/HPOA: Yes, both on file at [facility]. HPOA- Jessi Guajardo Living Arrangements:?Lives with in a SS home, 3 steps to enter ADL?s: Independent with ambulation and ADLs Transportation: Patient drives, to transport on DC. Denies any transportation issues. DME: CPAP, Glucometer HHC: None SNF: Past at [facility] Goal: Home, does not think will have any needs. Denies any questions/issues or concerns with DC Planning at this time. Aware CM remains available for any emerging needs. DC PLAN: Home with no anticipated needs identified at this time. JOSÉ Larose
--- NOTE | 2018-11-23 13:41 | CON.PCM_ITS ---
Problem List (1) Upper GI bleed Status: Acute (2) HTN (hypertension) Status: Chronic Qualifiers: Hypertension type: essential hypertension Qualified Code(s): I10 - Essential (primary) hypertension (3) Acute blood loss anemia Status: Acute (4) Iron deficiency anemia Status: Chronic Qualifiers: Iron deficiency anemia type: unspecified iron deficiency Qualified Code(s): D50.9 - Iron deficiency anemia, unspecified (5) Obesity (BMI 30.0-34.9) Status: Chronic (6) CLEMENT (obstructive sleep apnea) Status: Chronic (7) Chronic diastolic (congestive) heart failure Status: Chronic (8) Non-rheumatic tricuspid valve insufficiency Status: Chronic (9) Chronic atrial fibrillation Status: Chronic Comment: S/P MAZE procedure in 2016; (10) Secondary pulmonary arterial hypertension Status: Chronic (11) History of aortic valve replacement with bioprosthetic valve Status: Resolved Comment: Aortic Valve Replacement w/ 23-mm Jay-Aragon pericardial valve 01/24/16 (12) H/O mitral valve repair Status: Resolved Comment: mitral valve repair and MAZE procedure 01/24/[address] 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 transplanted heart: [place] heart Qualified Code(s): I25.10 - Atherosclerotic heart disease of [place] coronary artery without angina pectoris (18) History of maze procedure Status: Chronic Comment: mitral valve repair and MAZE procedure 01/24/[address] Tolliver @ [facility] (19) Hyperlipidemia Status: Chronic Qualifiers: Hyperlipidemia type: pure hypercholesterolemia Qualified Code(s): E78.00 - Pure hypercholesterolemia, unspecified Reason for Consult Date of Consultation: 11/23/18 Reason for Consultation: Hemorrhagic shock History of Present Illness: The patient is a 78 year old M, with past medical history listed below, who presented to [facility] on 11/23/2018 secondary to recent onset of nausea, emesis and diarrhea that started 2 days prior to presentation. Patient reportedly had had some black tarry stools and had poor oral intake. Patient did not report any abdominal pain, cramping or recent sick contacts. Patient has had previous similar type of presentations, but has never been noted to have ulcers that the family is aware of. On presentation to the ER, patient was noted to be tachycardic at 113 bpm, hypotensive at 71/41 and 97% on 2 L. Patient's hemoglobin was noted to be 6.2 and INR was elevated at 3.9. Patient did have a potassium of 5.6, bicarbonate of 16, BUN of 132 and creatinine of 2.45. Lactate was elevated at 5.9. Patient was given 2 units of packed red blood cells, Kcentra and vitamin K. Patient did receive Protonix IV and 2 L of normal saline. Neurosurgery was contacted and was able to perform an endoscopy in the emergency room. There was no evidence of old clot or lesion noted in the stomach or duodenum. Patient's blood pressure is significantly improved, but given diastolic heart failure and significant volume resuscitation, patient was transferred to the intensive care unit for further evaluation. Patient reportedly has had choking episodes in the past. Patient has been seen by Dr. Henry as an outpatient and had a scope in May. No strictures were noted. Patient did not have any ulcers at that time. Patient's does report that he has had an increased cough and clearing of the throat in the last month or 2, but was going to wait until they followed up in our office with Dr. Love to discuss it as this did not seem significant enough to make an appointment. Patient denies any recent dysuria. Patient's baseline creatinine is approximately 1.2 and hemoglobin as recent as 09/29/2018 was 11.4. Patient is on Coumadin at baseline secondary to A. fib and bioprosthetic heart valve. Review of systems otherwise negative x10 systems. Past Medical History Past Medical History (Chronic Problems): Chronic Problems (Last Reviewed 08/17/18 @ 10:27 by ALEX Huber) HTN (hypertension) (Chronic) Iron deficiency anemia (Chronic) Lung nodule (Chronic) Obesity (BMI 30.0-34.9) (Chronic) CLEMENT (obstructive sleep apnea) (Chronic) Chronic diastolic (congestive) heart failure (Chronic) Diastolic dysfunction (Chronic) Non-rheumatic tricuspid valve insufficiency (Chronic) Chronic atrial fibrillation (Chronic) S/P MAZE procedure in 2016; Secondary pulmonary arterial hypertension (Chronic) Presence of permanent cardiac pacemaker (Chronic) Permanent pacemaker placement 02/02/16 Sick sinus syndrome (Chronic) [facility] (current) use of anticoagulants (Chronic) Nonrheumatic mitral valve regurgitation (Chronic) Nonrheumatic aortic (valve) stenosis (Chronic) Nonrheumatic aortic (valve) insufficiency (Chronic) Carotid artery stenosis (Chronic) Atherosclerotic heart disease of [place] coronary artery without angina pectoris (Chronic) History of maze procedure (Chronic 01/24/16) mitral valve repair and MAZE procedure 01/24/[address] Tolliver @ [facility] Hyperlipidemia (Chronic) Status post mitral valve repair (Chronic) mitral valve repair and MAZE procedure 01/24/[address] Tolliver @ [facility] 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) Aortic Valve Replacement w/ 23-mm Jay-Aragon pericardial valve Medical History: Medical History (Last Reviewed 08/17/18 @ 10:27 by Brissa Santoro NP-C) Chronic diastolic (congestive) heart failure (Chronic) I50.32 Diastolic dysfunction (Chronic) I51.89 Non-rheumatic tricuspid valve insufficiency (Chronic) I36.1 Chronic atrial fibrillation (Chronic) I48.2 S/P MAZE procedure in 2016; Secondary pulmonary arterial hypertension (Chronic) I27.21 Sick sinus syndrome (Chronic) I49.5 Nonrheumatic mitral valve regurgitation (Chronic) I34.0 Nonrheumatic aortic (valve) stenosis (Chronic) I35.0 Nonrheumatic aortic (valve) insufficiency (Chronic) I35.1 Carotid artery stenosis (Chronic) I65.29 Atherosclerotic heart disease of [place] coronary artery without angina pectoris (Chronic) I25.10 Hyperlipidemia (Chronic) E78.5 Anemia D64.9 Duodenal ulcer K26.9 Fracture of right pubis S32.501A GI bleed K92.2 Hypothyroidism E03.9 Obstructive sleep apnea G47.33 Osteoporosis M81.0 Pancytopenia D61.818 Rib fracture S22.39XA Type 2 diabetes mellitus E11.9 Pneumonia (Resolved) J18.9 Sepsis A41.9 Severe sepsis (Resolved) A41.9, R65.20 Shortness of breath (Resolved) R06.02 Allergies No Known Allergies Allergy (Verified 09/29/18 14:18) Home Medications: Ambulatory Orders Medication Instructions Recorded Cilostazol [Pletal] 100 mg PO BID 12/07/17 Potassium Chloride [K-Dur] 10 meq PO DAILY 01/07/18 glimepiride 4 mg tablet 2 mg PO DAILY@0800 tab 01/22/18 lisinopril 5 mg tablet 5 mg PO DAILY #90 tab 01/22/18 metformin 500 mg tablet 1,000 mg PO BIDCM tab 01/22/18 furosemide 40 mg tablet 40 mg PO DAILY #90 tab 02/03/18 pioglitazone 30 mg tablet 45 mg PO DAILY@0800 tab 03/05/18 ferrous sulfate 325 mg (65 mg 1 tab PO DAILY 30 Days #60 tab 05/21/18 iron) tablet carvedilol 12.5 mg tablet 12.5 mg PO BID #180 tab 07/24/18 Aspirin 81 mg PO DAILY 11/23/18 Warfarin [Coumadin] 7.5 mg PO .COMPLEX 11/23/18 Surgical History: Surgical History (Last Reviewed 08/17/18 @ 10:27 by Brissa Santoro NP-C) History of aortic valve replacement with bioprosthetic valve (Resolved) Onset Date: 01/24/16 Z95.3 Aortic Valve Replacement w/ 23-mm Jay-Aragon pericardial valve 01/24/16 H/O mitral valve repair (Resolved) Onset Date: 01/24/16 Z98.890 mitral valve repair and MAZE procedure 01/24/[address] Tolliver @ [facility] Presence of permanent cardiac pacemaker (Chronic) Z95.0 Permanent pacemaker placement 02/02/16 History of maze procedure (Chronic) Onset Date: 01/24/16 Z98.890 mitral valve repair and MAZE procedure 01/24/[address] Tolliver @ [facility] Status post mitral valve repair (Chronic) Z98.890 mitral valve repair and MAZE procedure 01/24/[address] 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 Psychiatric History: No pertinent psych hx Lives: Spouse/ Significant Other Smoking Status: Former smoker Alcohol: None Drugs: None - *Family History Maternal Family History: Family History (Last Reviewed 08/17/18 @ 10:27 by ALEX Huber) Mother Myocardial infarction CAD (coronary artery disease) Hypertension Sister Hypertension CVA (cerebral vascular accident) Son Diabetes History Items: Heart Disease, Hypertension Paternal Family History: Family History (Last Reviewed 08/17/18 @ 10:27 by ALEX Huber) Mother Myocardial infarction CAD (coronary artery disease) Hypertension Sister Hypertension CVA (cerebral vascular accident) Son Diabetes History Items: Heart Disease, Hypertension Sibling Family History: Family History (Last Reviewed 08/17/18 @ 10:27 by ALEX Huber) Mother Myocardial infarction CAD (coronary artery disease) Hypertension Sister Hypertension CVA (cerebral vascular accident) Son Diabetes History Items: Hypertension, Stroke Offspring Family History: Family History (Last Reviewed 08/17/18 @ 10:27 by ALEX Huber) Mother Myocardial infarction CAD (coronary artery disease) Hypertension Sister Hypertension CVA (cerebral vascular accident) Son Diabetes History Items: Diabetes Review of Systems Comment: See HPI Patient Problems: Active and Suspected Problems (Last Reviewed 08/17/18 @ 10:27 by ALEX Fox) Upper GI bleed (Acute) Acute blood loss anemia (Acute) Objective: Patient's last echocardiogram was in July 2018 showing severe LVH with an EF of 60% in stage III diastolic dysfunction. Severely dilated left atrium, moderately dilated right atrium and a pulmonary artery pressure of 60 mmHg. Bioprosthetic valve with an area of 1.6 cm?. Last pulmonary function test completed 02/04/2018 shows a mild restrictive ventilatory defect with symmetric reduction diffusing capacity and a borderline bronchodilator response (FVC 78%, FEV1 85%, TLC 77%, DLCO 64%). Last CT scan completed 02/02/2018 showed a right middle lobe nodule that was measured at 8.1 x 9 mm with punctate calcifications. Some hilar lymphadenopathy was appreciated. - Physical Exam General: Alert, Oriented x3, Cooperative, No apparent distress, Well developed, Well nourished, - - Obese. No conversational dyspnea. Hearing aids and glasses in place. HEENT: Atraumatic, PERRLA, EOMI, Normocephalic, - - No scleral icterus or injection noted. Normal-appearing conjunctivo-. Oral: No Gingival or Mucosal Lesions/ Ulcerations, Dry Mucosa Neck: Supple, No JVD, No Nodes, Trachea Midline Lungs: No rhonchi, No wheeze, No rales, Diminished, - - Symmetric expansion. No dullness to percussion. Cardiovascular: Normal S1, Normal S2, No murmurs, No rub noted, No Gallop, Tachycardic Abdomen: Bowel Sounds Present, Soft, Non Tender, Non-Distended, Obese Extremities: No clubbing, No cyanosis, Edema - At the ankle-nonpitting Skin: No rashes, No breakdown Musculoskeletal: No Tenderness to Palpation of Joints or Extremities Lymphatic: No Cervical, Supraclavicular, or Inguinal Adenopathy Neurological: Cranial nerves II-XII grossly intact, Neuro grossly intact, Motor Exam 5/5 strength throughout Psych/Mental Status: Alert and oriented to time, place, person, mood and affect Vital Signs Temp Pulse Resp BP Pulse Ox 36.8 C 95 18 99/56 L 100 11/23/18 12:25 11/23/18 12:25 11/23/18 12:25 11/23/18 12:25 11/23/18 12:25 Oxygen Flow Rate (L/min) [3] 6 Oxygen Flow Rate (L/min) [1 ( 6 Initial Baseline)] Oxygen Flow Rate (L/min) 2 Oxygen Delivery Method [3] Room Air Oxygen Delivery Method [1 ( Nasal Cannula Initial Baseline)] Oxygen Delivery Method Nasal Cannula Weight: 96.1 kg Body Mass Index (BMI) 33.1 Finger Stick Blood Glucose 235 Intake and Output for Last 24 Hours 11/21/18 11/22/18 11/23/18 23:59 23:59 23:59 Intake Total 800 / 800 Balance 800 / 800 Laboratory Tests Past 24 Hrs 11/23/18 11/23/18 11/23/18 09:50 09:59 09:59 WBC 8.8 RBC 1.99 L Hgb 6.2 L Hct 19.2 L MCV 96.5 H MCH 31.2 MCHC 32.3 RDW Std Deviation 55.7 H RDW Coeff of Heidi 16.6 H Plt Count 170 MPV 10.3 Immature Gran % (Auto) 2.000 H Neut % (Auto) 80.8 H Lymph % (Auto) 9.2 L [place] % (Auto) 7.7 Eos % (Auto) 0.1 Baso % (Auto) 0.2 Absolute Neuts (auto) 7.1 Absolute Lymphs (auto) 0.81 L Nucleated RBC % 0.3 PT 38.3 H INR 3.9 H* APTT 47.8 H Sodium Potassium Chloride Carbon Dioxide Anion Gap BUN Creatinine Estim Creat Clear Calc Est GFR (MDRD) Af Amer Est GFR (MDRD) Non-Af BUN/Creatinine Ratio Glucose Lactic Acid 5.9 H* Calcium Blood Type Antibody Screen Crossmatch 11/23/18 11/23/18 09:59 09:59 WBC RBC Hgb Hct MCV MCH MCHC RDW Std Deviation RDW Coeff of Heidi Plt Count MPV Immature Gran % (Auto) Neut % (Auto) Lymph % (Auto) [place] % (Auto) Eos % (Auto) Baso % (Auto) Absolute Neuts (auto) Absolute Lymphs (auto) Nucleated RBC % PT INR APTT Sodium 135 L Potassium 5.6 H Chloride 108 H Carbon Dioxide 16.0 L Anion Gap 11 BUN 132 H* Creatinine 2.45 H Estim Creat Clear Calc 23.61 Est GFR (MDRD) Af Amer 33 L Est GFR (MDRD) Non-Af 27 L BUN/Creatinine Ratio 53.9 H Glucose 219 H Lactic Acid Calcium 9.1 Blood Type A POSITIVE Antibody Screen NEGATIVE Crossmatch See Detail Assessment/Plan Active and Suspected Problems (Last Reviewed 08/17/18 @ 10:27 by Brissa Santoro, PAULETTE-C) Upper GI bleed (Acute) Acute blood loss anemia (Acute) RECOMMENDATIONS: 1. Obtain serial H&H 2. Monitor oxygen saturations closely 3. Potential colonoscopy later in the hospitalization 4. Potentially transition from PPI drip to PPI every 12 hours tomorrow IMPRESSIONS: 1. Hemorrhagic shock secondary to acute GI bleed Unclear etiology at this time. Patient did have a slightly elevated INR and received K Centra. Elevated BUN would be suggestive of a protracted course. No ulcer or source of bleeding was noted on EGD. We will hold on anticoagulation for now. Patient will likely have to be followed once anticoagulation is reinitiated. Cannot exclude the need for a capsule study for AVM malformation. Reasonable to continue with PPI drip for now, but this will be switched to every 12 tomorrow. Continue with serial H&H's. Unclear if nausea, vomiting and diarrhea are secondary to GI bleed versus a secondary process. 2. Chronic diastolic CHF/PAF status post Maze procedure/CAD/type II pulmonary hypertension/history of sick sinus status post pacemaker Patient appears to be doing well at this time. Patient does have significant diastolic dysfunction and is receiving significant fluids at this time. Cannot exclude the need for Lasix overnight. Continue to keep saturations 88 to 92%. Elevated heart rate at this time appears to be respo nding well to volume resuscitation. Patient did have an elevated only artery pressure on last echocardiogram. Likely not necessary to repeat echocardiogram during acute hospitalization from my perspective 3. Acute kidney injury Show a significant elevation of BUN and creatinine from baseline. Patient likely has significant elevation of BUN secondary to GI bleed. We will continue with volume resuscitation. Recheck labs tomorrow. Hyperkalemia likely secondary to acidosis related to lactic acid. This will likely normalize as patient is improved from a hemodynamic standpoint. Continue to monitor urine output. 4. Hearing loss/anxiety/depression/CLEMENT/advanced age/diabetes mellitus Complicates care, management, recovery and prognosis. Okay to continue with baseline CPAP therapy. Will need to follow blood sugars closely, but agree with holding home oral regimen. Monitor closely for delirium. Code Visit Inpatient E&M: 56805 Init Hosp L3
[2018-11-23 14:15] LABS: Reflex Lactate? Y
[2018-11-23 16:02] LABS: Hematocrit 21.3 % (40-54); Hemoglobin 7.2 g/dL (13.0-16.5)
[2018-11-23 16:12] LABS: International Normalized Ratio 1.5; Prothrombin Time (Protime)PT. 18.1 SECONDS (11.7-14.9)
[2018-11-23 16:33] LABS: Anion Gap 11 (5-15); BUN 112 mg/dL (7-18); Calcium,Total 8.2 mg/dL (8.5-10.1); Chloride 111 mmol/L (98-107); Creatinine, Serum 1.93 mg/dL (0.70-1.30); EST Glomerular Filtration Rate 36 mL/min (>60); Est Glom Filt Rate - Afr Amer 44 mL/min (>60); Estimated Creatinine Clearance 29.97 ml/min; Glucose 104 mg/dL (74-106); Potassium 4.9 mmol/L (3.5-5.1); Sodium Level 140 mmol/L (136-145)
[2018-11-23 18:25] LABS: Bedside Glucose 51 mg/dL (70-110)
[2018-11-23] MEDS: 0.9% NaCl Peripheral Flush Adult/Peds IV (18:30)
[2018-11-23] MEDS: Ferrous Sulfate 325 MG Tablet PO (18:32)
[2018-11-23 19:05] LABS: Bedside Glucose 96 mg/dL (70-110)
[2018-11-23 20:26] LABS: Bedside Glucose 86 mg/dL (70-110)
--- NOTE | 2018-11-23 20:38 | CPS ---
pt encouraged to bring own cpap machine in from home-
[2018-11-23 22:53] LABS: Hematocrit 23.1 % (40-54); Hemoglobin 7.9 g/dL (13.0-16.5)
[2018-11-23] MEDS: Dext 5%-0.45% NS 1,000 ML 50 ML IV (23:53)
[2018-11-23 23:56] LABS: Bedside Glucose 111 mg/dL (70-110)
[2018-11-23 23:56] LABS: Bedside Glucose 52 mg/dL (70-110)
[2018-11-23 23:56] LABS: Bedside Glucose 66 mg/dL (70-110)
[2018-11-24] VITALS (28 sets, daily range): BP systolic 94–147; BP diastolic 39–83; PULSE 89–110; RESP 12–26; TEMP 36.4–37.1; O2SAT 91–100
[2018-11-24 02:16] LABS: Bedside Glucose 78 mg/dL (70-110)
[2018-11-24 03:26] LABS: Bedside Glucose 72 mg/dL (70-110)
[2018-11-24 03:34] LABS: Absolute Lymphocyte Count 0.54 X10^3/uL (0.83-4.51); Absolute Neutrophil Count 3.9 X10^3/uL (2.0-7.7); Basophil# 0.02 X10^3/uL; Basophil% 0.4 % (0-1); Eosinophil# 0.03 X10^3/uL; Eosinophils% 0.6 % (0-5); Hematocrit 22.9 % (40-54); Hemoglobin 7.7 g/dL (13.0-16.5); Lymphocyte # 0.54 X10^3/ul (4.0); Lymphocyte % 10.3 % (19-41); Mean Corp Hgb Conc 33.6 g/dL (32-36); Mean Corpuscular Hgb 30.4 pg (27.0-32.0); Mean Corpuscular Volume 90.5 fL (80-94); Mean Platelet Vol. 9.7 fl (6.2-12.0); Monocyte% 11.5 % (0-10); NRBC Flagged by Analyzer 0.8 % (0-5); Neutrophil # 3.89 X10^3/uL (2.7-7.7); Neutrophil % 74.3 % (47-70); POSITIVE DIFFERENTIAL YES; Platelet Count 103 K/mm3 (150-450); RBC Distribution Width CV 16.3 % (11.6-14.6); RBC Distribution Width SD 52.6 fl (35.1-43.9); Red Blood Count 2.53 M/mm3 (4.6-6.2); White Blood Count 5.2 K/mm3 (4.4-11.0)
[2018-11-24 03:42] LABS: Differential Indicated SCAN CRITERIA MET; International Normalized Ratio 1.3; Prothrombin Time (Protime)PT. 15.9 SECONDS (11.7-14.9)
[2018-11-24 03:53] LABS: Differential Comment SCANNED
[2018-11-24 03:58] LABS: Anion Gap 8 (5-15); BUN 78 mg/dL (7-18); BUN/Creat Ratio 58.6 RATIO (10-20); Calcium,Total 8.1 mg/dL (8.5-10.1); Chloride 112 mmol/L (98-107); Creatinine, Serum 1.33 mg/dL (0.70-1.30); EST Glomerular Filtration Rate 55 mL/min (>60); Est Glom Filt Rate - Afr Amer 67 mL/min (>60); Estimated Creatinine Clearance 43.49 ml/min; Glucose 80 mg/dL (74-106); Potassium 4.5 mmol/L (3.5-5.1); Sodium Level 142 mmol/L (136-145)
[2018-11-24 05:36] LABS: Bedside Glucose 78 mg/dL (70-110)
[2018-11-24] MEDS: Dext 5%-0.45% NS 1,000 ML 50 ML IV (06:00)
--- NOTE | 2018-11-24 07:11 | PN_ITS ---
Subjective: Patient did okay overnight. Patient did end up requiring 3 units of packed red blood cells. Patient does not appear to be incrementing appropriately, but does not report any signs or symptoms of blood loss such as hematemesis, hemoptysis, melena or hematochezia. Patient has had some issues with some lower blood sugars and required initiation of a D5 drip. Patient tolerated CPAP from our machine. General: Alert, Oriented x3, Cooperative, No apparent distress, Well developed, Well nourished, - - Hard of hearing. HEENT: Atraumatic, PERRLA, EOMI, Normocephalic, - - No scleral icterus or injection noted. Oral: Moist Mucosa, No Gingival or Mucosal Lesions/ Ulcerations Neck: Supple, No JVD, No Nodes, Trachea Midline Lungs: No rhonchi, No wheeze, No rales, Diminished, - - Symmetric expansion. No dullness to percussion. Cardiovascular: Normal S1, Normal S2, No murmurs, Irregular Rate, No rub noted, No Gallop Abdomen: Bowel Sounds Present, Soft, Non Tender, Non-Distended Extremities: No clubbing, No cyanosis, No edema Skin: No rashes, No breakdown Musculoskeletal: No Tenderness to Palpation of Joints or Extremities Lymphatic: No Cervical, Supraclavicular, or Inguinal Adenopathy Neurological: Cranial nerves II-XII grossly intact, Neuro grossly intact, Motor Exam 5/5 strength throughout Psych/Mental Status: Alert and oriented to time, place, person, mood and affect Vital Signs Temp Pulse Resp BP Pulse Ox 36.4 C L 93 20 H 117/56 L 96 11/24/18 05:00 11/24/18 06:00 11/24/18 06:00 11/24/18 06:00 11/24/18 06:00 Oxygen Flow Rate (L/min) [3] 6 Oxygen Flow Rate (L/min) [1 ( 6 Initial Baseline)] Oxygen Flow Rate (L/min) 2 Oxygen Delivery Method [3] Room Air Oxygen Delivery Method [1 ( Nasal Cannula Initial Baseline)] Oxygen Delivery Method Room Air Weight: 97.1 kg Body Mass Index (BMI) 33.1 Finger Stick Blood Glucose 235 Intake and Output for Last 24 Hours 11/22/18 11/23/18 11/24/18 23:59 23:59 23:59 Intake Total 3776 / 3776 318 / 318 Output Total 1200 / 1200 300 / 300 Balance 2576 / 2576 Labs (Last 48 Hours) 11/23/18 11/23/18 11/23/18 09:50 09:59 09:59 WBC 8.8 RBC 1.99 L Hgb 6.2 L Hct 19.2 L MCV 96.5 H MCH 31.2 MCHC 32.3 RDW Std Deviation 55.7 H RDW Coeff of Heidi 16.6 H Plt Count 170 MPV 10.3 Immature Gran % (Auto) 2.000 H Neut % (Auto) 80.8 H Lymph % (Auto) 9.2 L [place] % (Auto) 7.7 Eos % (Auto) 0.1 Baso % (Auto) 0.2 Absolute Neuts (auto) 7.1 Absolute Lymphs (auto) 0.81 L Nucleated RBC % 0.3 Differential Comment PT 38.3 H INR 3.9 H* APTT 47.8 H Sodium Potassium Chloride Carbon Dioxide Anion Gap BUN Creatinine Estim Creat Clear Calc Est GFR (MDRD) Af Amer Est GFR (MDRD) Non-Af BUN/Creatinine Ratio Glucose Lactic Acid 5.9 H* Calcium POC Glucose Blood Type Antibody Screen Crossmatch 11/23/18 11/23/18 11/23/18 09:59 09:59 09:59 WBC RBC Hgb Hct MCV MCH MCHC RDW Std Deviation RDW Coeff of Heidi Plt Count MPV Immature Gran % (Auto) Neut % (Auto) Lymph % (Auto) [place] % (Auto) Eos % (Auto) Baso % (Auto) Absolute Neuts (auto) Absolute Lymphs (auto) Nucleated RBC % Differential Comment PT INR APTT Sodium 135 L Potassium 5.6 H Chloride 108 H Carbon Dioxide 16.0 L Anion Gap 11 BUN 132 H* Creatinine 2.45 H Estim Creat Clear Calc 23.61 Est GFR (MDRD) Af Amer 33 L Est GFR (MDRD) Non-Af 27 L BUN/Creatinine Ratio 53.9 H Glucose 219 H Lactic Acid Calcium 9.1 POC Glucose Blood Type A POSITIVE Antibody Screen NEGATIVE Crossmatch See Detail See Detail 11/23/18 11/23/18 11/23/18 15:45 15:45 15:45 WBC RBC Hgb 7.2 L Hct 21.3 L MCV MCH MCHC RDW Std Deviation RDW Coeff of Heidi Plt Count MPV Immature Gran % (Auto) Neut % (Auto) Lymph % (Auto) [place] % (Auto) Eos % (Auto) Baso % (Auto) Absolute Neuts (auto) Absolute Lymphs (auto) Nucleated RBC % Differential Comment PT 18.1 H INR 1.5 APTT Sodium 140 Potassium 4.9 Chloride 111 H Carbon Dioxide 18.0 L Anion Gap 11 BUN 112 H* Creatinine 1.93 H Estim Creat Clear Calc 29.97 Est GFR (MDRD) Af Amer 44 L Est GFR (MDRD) Non-Af 36 L BUN/Creatinine Ratio 58.0 H Glucose 104 Lactic Acid Calcium 8.2 L POC Glucose Blood Type Antibody Screen Crossmatch 11/23/18 11/23/18 11/23/18 15:45 18:15 18:58 WBC RBC Hgb Hct MCV MCH MCHC RDW Std Deviation RDW Coeff of Heidi Plt Count MPV Immature Gran % (Auto) Neut % (Auto) Lymph % (Auto) [place] % (Auto) Eos % (Auto) Baso % (Auto) Absolute Neuts (auto) Absolute Lymphs (auto) Nucleated RBC % Differential Comment PT INR APTT Sodium Potassium Chloride Carbon Dioxide Anion Gap BUN Creatinine Estim Creat Clear Calc Est GFR (MDRD) Af Amer Est GFR (MDRD) Non-Af BUN/Creatinine Ratio Glucose Lactic Acid 4.0 H* Calcium POC Glucose 51 L 96 Blood Type Antibody Screen Crossmatch 11/23/18 11/23/18 11/23/18 20:21 22:35 23:05 WBC RBC Hgb 7.9 L Hct 23.1 L MCV MCH MCHC RDW Std Deviation RDW Coeff of Heidi Plt Count MPV Immature Gran % (Auto) Neut % (Auto) Lymph % (Auto) [place] % (Auto) Eos % (Auto) Baso % (Auto) Absolute Neuts (auto) Absolute Lymphs (auto) Nucleated RBC % Differential Comment PT INR APTT Sodium Potassium Chloride Carbon Dioxide Anion Gap BUN Creatinine Estim Creat Clear Calc Est GFR (MDRD) Af Amer Est GFR (MDRD) Non-Af BUN/Creatinine Ratio Glucose Lactic Acid Calcium POC Glucose 86 52 L Blood Type Antibody Screen Crossmatch 11/23/18 11/23/18 11/24/18 23:23 23:52 02:12 WBC RBC Hgb Hct MCV MCH MCHC RDW Std Deviation RDW Coeff of Heidi Plt Count MPV Immature Gran % (Auto) Neut % (Auto) Lymph % (Auto) [place] % (Auto) Eos % (Auto) Baso % (Auto) Absolute Neuts (auto) Absolute Lymphs (auto) Nucleated RBC % Differential Comment PT INR APTT Sodium Potassium Chloride Carbon Dioxide Anion Gap BUN Creatinine Estim Creat Clear Calc Est GFR (MDRD) Af Amer Est GFR (MDRD) Non-Af BUN/Creatinine Ratio Glucose Lactic Acid Calcium POC Glucose 66 L 111 H 78 Blood Type Antibody Screen Crossmatch 11/24/18 11/24/18 11/24/18 03:22 03:25 03:25 WBC 5.2 RBC 2.53 L Hgb 7.7 L Hct 22.9 L MCV 90.5 MCH 30.4 MCHC 33.6 RDW Std Deviation 52.6 H RDW Coeff of Heidi 16.3 H Plt Count 103 L MPV 9.7 Immature Gran % (Auto) 2.900 H Neut % (Auto) 74.3 H Lymph % (Auto) 10.3 L [place] % (Auto) 11.5 H Eos % (Auto) 0.6 Baso % (Auto) 0.4 Absolute Neuts (auto) 3.9 Absolute Lymphs (auto) 0.54 L Nucleated RBC % 0.8 Differential Comment SCANNED PT 15.9 H INR 1.3 APTT Sodium Potassium Chloride Carbon Dioxide Anion Gap BUN Creatinine Estim Creat Clear Calc Est GFR (MDRD) Af Amer Est GFR (MDRD) Non-Af BUN/Creatinine Ratio Glucose Lactic Acid Calcium POC Glucose 72 Blood Type Antibody Screen Crossmatch 11/24/18 11/24/18 03:25 05:32 WBC RBC Hgb Hct MCV MCH MCHC RDW Std Deviation RDW Coeff of Heidi Plt Count MPV Immature Gran % (Auto) Neut % (Auto) Lymph % (Auto) [place] % (Auto) Eos % (Auto) Baso % (Auto) Absolute Neuts (auto) Absolute Lymphs (auto) Nucleated RBC % Differential Comment PT INR APTT Sodium 142 Potassium 4.5 Chloride 112 H Carbon Dioxide 22.0 Anion Gap 8 BUN 78 H Creatinine 1.33 H Estim Creat Clear Calc 43.49 Est GFR (MDRD) Af Amer 67 Est GFR (MDRD) Non-Af 55 L BUN/Creatinine Ratio 58.6 H Glucose 80 Lactic Acid Calcium 8.1 L POC Glucose 78 Blood Type Antibody Screen Crossmatch Medical Necessity - Tobacco Use Smoking Status: Former smoker Assessment/Plan All Active Problems (Last Reviewed 08/17/18 @ 10:27 by Brissa Santoro, PAULETTE-C) Upper GI bleed (Acute) Acute blood loss anemia (Acute) History of aortic valve replacement with bioprosthetic valve (Resolved 01/24/16) H/O mitral valve repair (Resolved 01/24/16) Aortic stenosis, severe (Resolved) Hypokalemia (Resolved) Pneumonia (Resolved) Severe sepsis (Resolved) Shortness of breath (Resolved) Supratherapeutic INR (Resolved) RECOMMENDATIONS: 1. Advance diet per surgery recommendations 2. Monitor oxygen saturations closely 3. Continue PPI every 12 4. Likely okay to space out H&H IMPRESSIONS: 1. Hemorrhagic shock secondary to acute GI bleed Unclear etiology at this time. Patient did have a slightly elevated INR and received K Centra. Elevated BUN would be suggestive of a protracted course. No ulcer or source of bleeding was noted on EGD. We will hold on anticoagulation for now. Patient will likely have to be followed once anticoagu lation is reinitiated. Cannot exclude the need for a capsule study for AVM malformation. Patient has received 3 units of packed red blood cells and is not incrementing appropriately indicating possible slow bleed. However, none is notable clinically. Blood pressure is much improved following blood transfusions. 2. Chronic diastolic CHF/PAF status post Maze procedure/CAD/type II pulmonary hypertension/history of sick sinus status post pacemaker Patient appears to be doing well at this time. Patient does have significant diastolic dysfunction and is receiving significant fluids at this time. Cannot exclude the need for Lasix overnight. Continue to keep saturations 88 to 92%. Elevated heart rate at this time appears to be responding well to volume resuscitation. Patient did have an elevated pulmonary artery pressure on last echocardiogram. Likely not necessary to repeat echocardiogram during acute hospitalization from my perspective 3. Acute kidney injury Improving with hemodynamic stability. Patient likely has significant elevation of BUN secondary to GI bleed. We will continue with volume resuscitation. Recheck labs tomorrow. Hyperkalemia likely secondary to acidosis related to lactic acid. This will likely normalize as patient is improved from a hemodynamic standpoint. Continue to monitor urine output. 4. Hearing loss/anxiety/depression/CLEMENT/advanced age/diabetes mellitus Complicates care, management, recovery and prognosis. Okay to continue with baseline CPAP therapy. Will need to follow blood sugars closely, but agree with holding home oral regimen. Monitor closely for delirium. Code Visit Inpatient E&M: 65643 Subs Hosp L3
--- NOTE | 2018-11-24 07:32 | PCM.PROGNOTE ---
Patient Problems: Active and Suspected Problems (Last Reviewed 08/17/18 @ 10:27 by ALEX Huber) Upper GI bleed (Acute) Acute blood loss anemia (Acute) Subjective: Mr. Guajardo is a 78 YOM with a past medical history of PAF (status post maze procedure), chronic anticoagulation with warfarin, diabetes mellitus type 2, GERD, peptic ulcer disease, history of mitral valve repair, bioprosthetic aortic valve replacement, diastolic congestive heart failure, peripheral vascular disease, carotid artery disease, obstructive sleep apnea on CPAP, hypertension, hyperlipidemia, sick sinus syndrome with history of pacemaker implantation, osteoarthritis, anxiety/depression and morbid obesity who presented to the emergency department at [facility] on 11/23/2018 complaining of nausea/emesis/diarrhea that had started on 11/21/2018. The stool appeared black and tarry. Vital signs at presentation to the emergency department were temperature 97 ?F, pulse rate 113, blood pressure 71/41, respiratory rate 16 and he was 96 to 97% saturated on a 2 L nasal cannula. CBC was remarkable for a hemoglobin of 6.2 with an increased MCV at 96.5. White blood cell count and platelets were within normal limits. INR was supratherapeutic at 3.9. Sodium was low at 135, potassium was increased to 5.6, serum bicarb was low at 16, BUN was 132 and the creatinine was 2.45. Creatinine in September 2018 was 1.36. Lactic acid was elevated at 5.9. Kcentra was ordered and initiated by the emergency department. Patient also was placed on IV pantoprazole and given vitamin K. EGD was performed in the emergency department and showed no evidence of old blood in the stomach or duodenum with no ulceration. There was a punctate area of bleeding in the stomach but no clot or old blood. He was admitted to the intensive care unit with a diagnosis of hemorrhagic shock secondary to acute GI bleed. All events of the past 24 hours of been reviewed. Afebrile since admission Hypotension has resolved on the current blood pressure is 104/46 with a heart rate of 98. He is maintaining a appropriate saturation of 95% on room air this morning. All lab was personally reviewed. Hemoglobin today is stable at 7.7. Platelets are low at 103,000. INR is 1.3. The BUN is down to 78 and the creatinine is down to 1.33 which is his baseline. Echocardiogram in July 2018 showed severe concentric left ventricular hypertrophy with an estimated ejection fraction of 60%. There was stage III diastolic dysfunction. Left atrium was severely enlarged and the right atrium was moderately enlarged. The PA systolic was estimated at 60. It was mild aortic stenosis with a calculated valve area of 1.6 cm?. There was a bioprosthetic aortic valve in place and a mitral annuloplasty ring. There was 2+ TR. In December [address] that showed no aortoiliac stenosis. A duplex scan of the left lower extremity in December 2017 showed severe left popliteal stenosis. Denies lightheadedness. No abdominal pain, nausea or vomiting. Denies chest pain, shortness of breath, palpitations. - Physical Exam General: Alert, Oriented x3, Cooperative HEENT: PERRLA, EOMI, - - Hard of hearing, has hearing aids Oral: Moist Mucosa Neck: No JVD, Trachea Midline Lungs: Clear to auscultation, Diminished Cardiovascular: Normal S1, Normal S2, No murmurs, Irregular Rate, No Gallop Abdomen: Bowel Sounds Present, Soft, Non Tender, Non-Distended, - - Bowel sounds are not hyperactive Extremities: No clubbing, No cyanosis, No edema Neurological: - - No focal neurologic deficit Psych/Mental Status: Normal Affect, Appropriate Vital Signs Temp Pulse Resp BP Pulse Ox 97.5 F L 98 20 H 104/46 L 95 11/24/18 05:00 11/24/18 07:18 11/24/18 07:00 11/24/18 07:00 11/24/18 07:23 Oxygen Flow Rate (L/min) [3] 6 Oxygen Flow Rate (L/min) [1 ( 6 Initial Baseline)] Oxygen Flow Rate (L/min) 2 Oxygen Delivery Method [3] Room Air Oxygen Delivery Method [1 ( Nasal Cannula Initial Baseline)] Oxygen Delivery Method Room Air Weight: 214 lb 1.102 oz Body Mass Index (BMI) 33.1 Finger Stick Blood Glucose 235 Intake and Output for Last 24 Hours 11/22/18 11/23/18 11/24/18 23:59 23:59 23:59 Intake Total 3776 / 3776 318 / 318 Output Total 1200 / 1200 300 / 300 Balance 2576 / 2576 Laboratory Tests Past 24 Hrs 11/23/18 11/23/18 11/23/18 09:50 09:59 09:59 WBC 8.8 RBC 1.99 L Hgb 6.2 L Hct 19.2 L MCV 96.5 H MCH 31.2 MCHC 32.3 RDW Std Deviation 55.7 H RDW Coeff of Heidi 16.6 H Plt Count 170 MPV 10.3 Immature Gran % (Auto) 2.000 H Neut % (Auto) 80.8 H Lymph % (Auto) 9.2 L [place] % (Auto) 7.7 Eos % (Auto) 0.1 Baso % (Auto) 0.2 Absolute Neuts (auto) 7.1 Absolute Lymphs (auto) 0.81 L Nucleated RBC % 0.3 Differential Comment PT 38.3 H INR 3.9 H* APTT 47.8 H Sodium Potassium Chloride Carbon Dioxide Anion Gap BUN Creatinine Estim Creat Clear Calc Est GFR (MDRD) Af Amer Est GFR (MDRD) Non-Af BUN/Creatinine Ratio Glucose Lactic Acid 5.9 H* Calcium Blood Type Antibody Screen Crossmatch 11/23/18 11/23/18 11/23/18 09:59 09:59 09:59 WBC RBC Hgb Hct MCV MCH MCHC RDW Std Deviation RDW Coeff of Heidi Plt Count MPV Immature Gran % (Auto) Neut % (Auto) Lymph % (Auto) [place] % (Auto) Eos % (Auto) Baso % (Auto) Absolute Neuts (auto) Absolute Lymphs (auto) Nucleated RBC % Differential Comment PT INR APTT Sodium 135 L Potassium 5.6 H Chloride 108 H Carbon Dioxide 16.0 L Anion Gap 11 BUN 132 H* Creatinine 2.45 H Estim Creat Clear Calc 23.61 Est GFR (MDRD) Af Amer 33 L Est GFR (MDRD) Non-Af 27 L BUN/Creatinine Ratio 53.9 H Glucose 219 H Lactic Acid Calcium 9.1 Blood Type A POSITIVE Antibody Screen NEGATIVE Crossmatch See Detail See Detail 11/23/18 11/23/18 11/23/18 15:45 15:45 15:45 WBC RBC Hgb 7.2 L Hct 21.3 L MCV MCH MCHC RDW Std Deviation RDW Coeff of Heidi Plt Count MPV Immature Gran % (Auto) Neut % (Auto) Lymph % (Auto) [place] % (Auto) Eos % (Auto) Baso % (Auto) Absolute Neuts (auto) Absolute Lymphs (auto) Nucleated RBC % Differential Comment PT 18.1 H INR 1.5 APTT Sodium 140 Potassium 4.9 Chloride 111 H Carbon Dioxide 18.0 L Anion Gap 11 BUN 112 H* Creatinine 1.93 H Estim Creat Clear Calc 29.97 Est GFR (MDRD) Af Amer 44 L Est GFR (MDRD) Non-Af 36 L BUN/Creatinine Ratio 58.0 H Glucose 104 Lactic Acid Calcium 8.2 L Blood Type Antibody Screen Crossmatch 11/23/18 11/23/18 11/24/18 15:45 22:35 03:25 WBC 5.2 RBC 2.53 L Hgb 7.9 L 7.7 L Hct 23.1 L 22.9 L MCV 90.5 MCH 30.4 MCHC 33.6 RDW Std Deviation 52.6 H RDW Coeff of Heidi 16.3 H Plt Count 103 L MPV 9.7 Immature Gran % (Auto) 2.900 H Neut % (Auto) 74.3 H Lymph % (Auto) 10.3 L [place] % (Auto) 11.5 H Eos % (Auto) 0.6 Baso % (Auto) 0.4 Absolute Neuts (auto) 3.9 Absolute Lymphs (auto) 0.54 L Nucleated RBC % 0.8 Differential Comment SCANNED PT INR APTT Sodium Potassium Chloride Carbon Dioxide Anion Gap BUN Creatinine Estim Creat Clear Calc Est GFR (MDRD) Af Amer Est GFR (MDRD) Non-Af BUN/Creatinine Ratio Glucose Lactic Acid 4.0 H* Calcium Blood Type Antibody Screen Crossmatch 11/24/18 11/24/18 03:25 03:25 WBC RBC Hgb Hct MCV MCH MCHC RDW Std Deviation RDW Coeff of Heidi Plt Count MPV Immature Gran % (Auto) Neut % (Auto) Lymph % (Auto) [place] % (Auto) Eos % (Auto) Baso % (Auto) Absolute Neuts (auto) Absolute Lymphs (auto) Nucleated RBC % Differential Comment PT 15.9 H INR 1.3 APTT Sodium 142 Potassium 4.5 Chloride 112 H Carbon Dioxide 22.0 Anion Gap 8 BUN 78 H Creatinine 1.33 H Estim Creat Clear Calc 43.49 Est GFR (MDRD) Af Amer 67 Est GFR (MDRD) Non-Af 55 L BUN/Creatinine Ratio 58.6 H Glucose 80 Lactic Acid Calcium 8.1 L Blood Type Antibody Screen Crossmatch POC Glucose 11/24/18 11/24/18 11/24/18 05:32 03:22 02:12 POC Glucose 78 72 78 11/23/18 11/23/18 11/23/18 23:52 23:23 23:05 POC Glucose 111 H 66 L 52 L 11/23/18 11/23/18 11/23/18 20:21 18:58 18:15 POC Glucose 86 96 51 L Medical Necessity - Tobacco Use Smoking Status: Former smoker Assessment/Plan All Active Problems (Last Reviewed 08/17/18 @ 10:27 by Brissa Santoro, PAULETTE-C) Upper GI bleed (Acute) Acute blood loss anemia (Acute) History of aortic valve replacement with bioprosthetic valve (Resolved 01/24/16) H/O mitral valve repair (Resolved 01/24/16) Aortic stenosis, severe (Resolved) Hypokalemia (Resolved) Pneumonia (Resolved) Severe sepsis (Resolved) Shortness of breath (Resolved) Supratherapeutic INR (Resolved) Impressions 1. Hemorrhagic shock secondary to acute GI bleed-EGD did not reveal source of bleeding. She received Kcentra in the emergency department. 2. Acute renal failure on chronic renal failure stage II?3 3. Acute on chronic anemia secondary to blood loss 4. Chronic anticoagulation with warfarin for atrial fibrillation 5. Chronic atrial fibrillation-status post Maze procedure 6. Diabetes mellitus type 2 7. GERD 8. History of peptic ulcer disease 9. History of mitral valve repair and bioprosthetic aortic valve replacement 10. Chronic diastolic congestive heart failure with a preserved ejection fraction of 60% 11. Stage III diastolic dysfunction 12. Moderate to severe pulmonary hypertension with a PA systolic estimated at 60 13. Mild aortic stenosis with a calculated valve area of 1.6 cm? 14. Supratherapeutic INR-reversed with Kcentra 15. From vascular disease 16. Obstructive sleep apnea on CPAP 17. Hypertension 18. Hyperlipidemia 19. History of sick sinus syndrome with pacemaker implantation 20. Osteoarthritis 21. Anxiety/depression 22. Presbycusis 23. Obesity Transfer to PCU today Check an H&H later today and repeat in the a.m. Recheck lab in the a.m. Continue to hold anticoagulation until such a time when the hemoglobin is stable. We will need to discuss with Dr. Campoverde need for additional endoscopy......he had black tarry stool so I doubt the bleeding originated in the colon. He may have a [place]ul[place]oy lesion or an AVM that bleeds. Iron supplementation for suspected chronic blood loss/chronic anemia related to anticoagulation - will give iron sucrose while he is in the hospital Convert to p.o. pantoprazole 40 mg once daily in the a.m. if the blood count remains stable. DC the IV fluids since he has been started on a diet. Code Visit Inpatient E&M: 31932 Subs Hosp L3
--- NOTE | 2018-11-24 07:45 | PCM.PN.SRG ---
Patient Problems: Active and Suspected Problems (Last Reviewed 08/17/18 @ 10:27 by ALEX Huber) Upper GI bleed (Acute) Acute blood loss anemia (Acute) Subjective: Patient had no bloody bowel movements overnight. He is not complaining of any abdominal pain. No nausea or vomiting. - Physical Exam General: Alert, Oriented x3 Neck: No JVD Lungs: Normal air movement Cardiovascular: Regular rate, Regular Rhythm Abdomen: Soft, Non Tender, Non-Distended Musculoskeletal: No Muscle Wasting Neurological: Cranial nerves II-XII grossly intact Psych/Mental Status: Normal Affect Vital Signs Temp Pulse Resp BP Pulse Ox 97.5 F L 98 20 H 104/46 L 95 11/24/18 05:00 11/24/18 07:18 11/24/18 07:00 11/24/18 07:00 11/24/18 07:23 Oxygen Flow Rate (L/min) [3] 6 Oxygen Flow Rate (L/min) [1 ( 6 Initial Baseline)] Oxygen Flow Rate (L/min) 2 Oxygen Delivery Method [3] Room Air Oxygen Delivery Method [1 ( Nasal Cannula Initial Baseline)] Oxygen Delivery Method Room Air Weight: 214 lb 1.102 oz Body Mass Index (BMI) 33.1 Finger Stick Blood Glucose 235 Intake and Output for Last 24 Hours 11/22/18 11/23/18 11/24/18 23:59 23:59 23:59 Intake Total 3776 / 3776 318 / 318 Output Total 1200 / 1200 300 / 300 Balance 2576 / 2576 Laboratory Tests Past 24 Hrs 11/23/18 11/23/18 11/23/18 09:50 09:59 09:59 WBC 8.8 RBC 1.99 L Hgb 6.2 L Hct 19.2 L MCV 96.5 H MCH 31.2 MCHC 32.3 RDW Std Deviation 55.7 H RDW Coeff of Heidi 16.6 H Plt Count 170 MPV 10.3 Immature Gran % (Auto) 2.000 H Neut % (Auto) 80.8 H Lymph % (Auto) 9.2 L Harlan % (Auto) 7.7 Eos % (Auto) 0.1 Baso % (Auto) 0.2 Absolute Neuts (auto) 7.1 Absolute Lymphs (auto) 0.81 L Nucleated RBC % 0.3 Differential Comment PT 38.3 H INR 3.9 H* APTT 47.8 H Sodium Potassium Chloride Carbon Dioxide Anion Gap BUN Creatinine Estim Creat Clear Calc Est GFR (MDRD) Af Amer Est GFR (MDRD) Non-Af BUN/Creatinine Ratio Glucose Lactic Acid 5.9 H* Calcium Blood Type Antibody Screen Crossmatch 11/23/18 11/23/18 11/23/18 09:59 09:59 09:59 WBC RBC Hgb Hct MCV MCH MCHC RDW Std Deviation RDW Coeff of Heidi Plt Count MPV Immature Gran % (Auto) Neut % (Auto) Lymph % (Auto) Harlan % (Auto) Eos % (Auto) Baso % (Auto) Absolute Neuts (auto) Absolute Lymphs (auto) Nucleated RBC % Differential Comment PT INR APTT Sodium 135 L Potassium 5.6 H Chloride 108 H Carbon Dioxide 16.0 L Anion Gap 11 BUN 132 H* Creatinine 2.45 H Estim Creat Clear Calc 23.61 Est GFR (MDRD) Af Amer 33 L Est GFR (MDRD) Non-Af 27 L BUN/Creatinine Ratio 53.9 H Glucose 219 H Lactic Acid Calcium 9.1 Blood Type A POSITIVE Antibody Screen NEGATIVE Crossmatch See Detail See Detail 11/23/18 11/23/18 11/23/18 15:45 15:45 15:45 WBC RBC Hgb 7.2 L Hct 21.3 L MCV MCH MCHC RDW Std Deviation RDW Coeff of Heidi Plt Count MPV Immature Gran % (Auto) Neut % (Auto) Lymph % (Auto) Harlan % (Auto) Eos % (Auto) Baso % (Auto) Absolute Neuts (auto) Absolute Lymphs (auto) Nucleated RBC % Differential Comment PT 18.1 H INR 1.5 APTT Sodium 140 Potassium 4.9 Chloride 111 H Carbon Dioxide 18.0 L Anion Gap 11 BUN 112 H* Creatinine 1.93 H Estim Creat Clear Calc 29.97 Est GFR (MDRD) Af Amer 44 L Est GFR (MDRD) Non-Af 36 L BUN/Creatinine Ratio 58.0 H Glucose 104 Lactic Acid Calcium 8.2 L Blood Type Antibody Screen Crossmatch 11/23/18 11/23/18 11/24/18 15:45 22:35 03:25 WBC 5.2 RBC 2.53 L Hgb 7.9 L 7.7 L Hct 23.1 L 22.9 L MCV 90.5 MCH 30.4 MCHC 33.6 RDW Std Deviation 52.6 H RDW Coeff of Heidi 16.3 H Plt Count 103 L MPV 9.7 Immature Gran % (Auto) 2.900 H Neut % (Auto) 74.3 H Lymph % (Auto) 10.3 L Harlan % (Auto) 11.5 H Eos % (Auto) 0.6 Baso % (Auto) 0.4 Absolute Neuts (auto) 3.9 Absolute Lymphs (auto) 0.54 L Nucleated RBC % 0.8 Differential Comment SCANNED PT INR APTT Sodium Potassium Chloride Carbon Dioxide Anion Gap BUN Creatinine Estim Creat Clear Calc Est GFR (MDRD) Af Amer Est GFR (MDRD) Non-Af BUN/Creatinine Ratio Glucose Lactic Acid 4.0 H* Calcium Blood Type Antibody Screen Crossmatch 11/24/18 11/24/18 03:25 03:25 WBC RBC Hgb Hct MCV MCH MCHC RDW Std Deviation RDW Coeff of Heidi Plt Count MPV Immature Gran % (Auto) Neut % (Auto) Lymph % (Auto) Harlan % (Auto) Eos % (Auto) Baso % (Auto) Absolute Neuts (auto) Absolute Lymphs (auto) Nucleated RBC % Differential Comment PT 15.9 H INR 1.3 APTT Sodium 142 Potassium 4.5 Chloride 112 H Carbon Dioxide 22.0 Anion Gap 8 BUN 78 H Creatinine 1.33 H Estim Creat Clear Calc 43.49 Est GFR (MDRD) Af Amer 67 Est GFR (MDRD) Non-Af 55 L BUN/Creatinine Ratio 58.6 H Glucose 80 Lactic Acid Calcium 8.1 L Blood Type Antibody Screen Crossmatch POC Glucose 11/24/18 11/24/18 11/24/18 05:32 03:22 02:12 POC Glucose 78 72 78 11/23/18 11/23/18 11/23/18 23:52 23:23 23:05 POC Glucose 111 H 66 L 52 L 11/23/18 11/23/18 11/23/18 20:21 18:58 18:15 POC Glucose 86 96 51 L Medical Necessity - Tobacco Use Smoking Status: Former smoker Assessment/Plan All Active Problems (Last Reviewed 08/17/18 @ 10:27 by LU HuberC) Upper GI bleed (Acute) Acute blood loss anemia (Acute) History of aortic valve replacement with bioprosthetic valve (Resolved 01/24/16) H/O mitral valve repair (Resolved 01/24/16) Aortic stenosis, severe (Resolved) Hypokalemia (Resolved) Pneumonia (Resolved) Severe sepsis (Resolved) Shortness of breath (Resolved) Supratherapeutic INR (Resolved) 78-year-old male with upper GI bleed 1. After transfusions the patient's hemoglobin appears stable. The likely reason that it has not responded adequately is due to hydration. Patient is not having any bloody bowel movements or nausea or vomiting. Continue PPI. From my standpoint is okay to start a diet. Hermann Campoverde MD Pager: [facility] [address] [place] [address], [address] [place] [address] Office:
[2018-11-24] MEDS: Ferrous Sulfate 325 MG Tablet PO ×2 (09:20→16:17)
[2018-11-24 09:32] LABS: AST(SGOT) 18 U/L (15-37); Alanine Aminotransfer ALT/SGPT 21 U/L (16-61); Albumin, Serum 3.1 g/dL (3.2-5.0); Alkaline Phosphatase 42 U/L (45-117); Bilirubin, Direct 0.17 mg/dL (0.00-0.30); Globulin 2.7 g/dL (2.2-4.2); Phosphorus 2.7 mg/dL (2.5-4.9); Protein, Total 5.8 g/dL (6.4-8.2)
[2018-11-24 12:00] LABS: Bedside Glucose 238 mg/dL (70-110)
[2018-11-24] MEDS: Insulin Lispro 100 UNIT/ML INSULN.PEN SC ×3 (12:01→21:41)
--- NOTE | 2018-11-24 14:11 | CHAPLAIN ---
Type of Pastoral Visit _x__ Initial Visit ___ Follow-up Visit ___ On-call Visit ___ General Patient Visit ___ Spiritual Assessment ___ Family Conference ___ Bereavement ___ Rapid Response ___ Code Blue ___ Other (describe below) Pastoral Care Referral From _x__ Patient _x__ Family ___ Nurse ___ Physician ___ Software Application Tester ___ Automobile Relocation Engineer ___ Other (describe below) Sacrament/Intervention _x__ Active listening ___ Anointing ___ Anabaptism ___ Bereavement ___ Communion ___ Verna exploration ___ ___ Life review _x__ Prayer ___ Reconciliation ___ Sacrament of Sick _x__ Supportive presence ___ Wedding ___ Other (describe below) Pastoral Comments
[2018-11-24 16:26] LABS: Bedside Glucose 175 mg/dL (70-110)
[2018-11-24 22:16] LABS: Bedside Glucose 233 mg/dL (70-110)
[2018-11-25] VITALS (18 sets, daily range): BP systolic 111–171; BP diastolic 49–102; PULSE 84–123; RESP 18–20; TEMP 36.3–37.2; O2SAT 91–97
[2018-11-25 05:40] LABS: Hematocrit 24.8 % (40-54); Hemoglobin 7.8 g/dL (13.0-16.5); Mean Corp Hgb Conc 31.5 g/dL (32-36); Mean Corpuscular Hgb 29.8 pg (27.0-32.0); Mean Corpuscular Volume 94.7 fL (80-94); Mean Platelet Vol. 10.2 fl (6.2-12.0); Platelet Count 111 K/mm3 (150-450); RBC Distribution Width CV 17.3 % (11.6-14.6); RBC Distribution Width SD 55.9 fl (35.1-43.9); Red Blood Count 2.62 M/mm3 (4.6-6.2); White Blood Count 4.8 K/mm3 (4.4-11.0)
[2018-11-25 05:53] LABS: Anion Gap 6 (5-15); BUN 36 mg/dL (7-18); BUN/Creat Ratio 30.5 RATIO (10-20); Chloride 112 mmol/L (98-107); Creatinine, Serum 1.18 mg/dL (0.70-1.30); EST Glomerular Filtration Rate 64 mL/min (>60); Est Glom Filt Rate - Afr Amer 77 mL/min (>60); Estimated Creatinine Clearance 49.01 ml/min; Glucose 127 mg/dL (74-106); Magnesium 2.1 mg/dL (1.6-2.6); Phosphorus 1.9 mg/dL (2.5-4.9); Potassium 4.3 mmol/L (3.5-5.1); Sodium Level 142 mmol/L (136-145)
[2018-11-25 06:51] LABS: Bedside Glucose 143 mg/dL (70-110)
--- NOTE | 2018-11-25 08:51 | PN_ITS ---
Patient Problems: Active and Suspected Problems (Last Reviewed 08/17/18 @ 10:27 by ALEX Huber) Upper GI bleed (Acute) Acute blood loss anemia (Acute) Subjective: Patient did well overnight. Patient was able to tolerate his baseline CPAP via home machine. Patient remains on room air. No bleeding complications have been reported. Patient denies any abdominal pain, nausea or vomiting. - Physical Exam General: Alert, Oriented x3, Cooperative, No apparent distress, Well developed, Well nourished, - - No conversational dyspnea. HEENT: Atraumatic, PERRLA, EOMI, Normocephalic, - - No scleral icterus or injection noted Oral: Moist Mucosa, No Gingival or Mucosal Lesions/ Ulcerations Neck: Supple, No JVD, No Nodes, Trachea Midline Lungs: No rhonchi, No wheeze, No rales, Diminished Cardiovascular: Normal S1, Normal S2, No murmurs, Irregular Rate, No rub noted, No Gallop Abdomen: Bowel Sounds Present, Soft, Non Tender, Non-Distended, Obese Extremities: No clubbing, No cyanosis, No edema, Capillary Refill Less than 3 Seconds Skin: No rashes, No breakdown Musculoskeletal: No Tenderness to Palpation of Joints or Extremities Lymphatic: No Cervical, Supraclavicular, or Inguinal Adenopathy Neurological: Cranial nerves II-XII grossly intact, Neuro grossly intact, Motor Exam 5/5 strength throughout Psych/Mental Status: Alert and oriented to time, place, person, mood and affect Vital Signs Temp Pulse Resp BP Pulse Ox 36.3 C L 96 18 125/60 H 94 11/25/18 03:40 11/25/18 03:40 11/25/18 03:40 11/25/18 03:40 11/25/18 03:40 Oxygen Flow Rate (L/min) [3] 6 Oxygen Flow Rate (L/min) [1 ( 6 Initial Baseline)] Oxygen Flow Rate (L/min) 2 Oxygen Delivery Method [3] Room Air Oxygen Delivery Method [1 ( Nasal Cannula Initial Baseline)] Oxygen Delivery Method Room Air Weight: 95.9 kg Body Mass Index (BMI) 33.1 Finger Stick Blood Glucose 235 Intake and Output for Last 24 Hours 11/23/18 11/24/18 11/25/18 23:59 23:59 23:59 Intake Total 3776 / 3776 1548.83 / 1548.83 120 / 120 Output Total 1200 / 1200 1050 / 1050 650 / 650 Balance 2576 / 2576 498.83 / 498.83 -530 / -530 Laboratory Tests Past 24 Hrs 11/24/18 11/24/18 11/25/18 03:25 22:15 05:06 WBC 4.8 RBC 2.62 L Hgb 8.0 L 7.8 L Hct 24.0 L 24.8 L MCV 94.7 H MCH 29.8 MCHC 31.5 L RDW Std Deviation 55.9 H RDW Coeff of Heidi 17.3 H Plt Count 111 L MPV 10.2 Sodium Potassium Chloride Carbon Dioxide Anion Gap BUN Creatinine Estim Creat Clear Calc Est GFR (MDRD) Af Amer Est GFR (MDRD) Non-Af BUN/Creatinine Ratio Glucose Calcium Phosphorus 2.7 Magnesium 2.0 Total Bilirubin 0.70 Direct Bilirubin 0.17 AST 18 ALT 21 Alkaline Phosphatase 42 L Total Protein 5.8 L Albumin 3.1 L Globulin 2.7 11/25/18 05:06 WBC RBC Hgb Hct MCV MCH MCHC RDW Std Deviation RDW Coeff of Heidi Plt Count MPV Sodium 142 Potassium 4.3 Chloride 112 H Carbon Dioxide 24.0 Anion Gap 6 BUN 36 H Creatinine 1.18 Estim Creat Clear Calc 49.01 Est GFR (MDRD) Af Amer 77 Est GFR (MDRD) Non-Af 64 BUN/Creatinine Ratio 30.5 H Glucose 127 H Calcium 8.0 L Phosphorus 1.9 L Magnesium 2.1 Total Bilirubin Direct Bilirubin AST ALT Alkaline Phosphatase Total Protein Albumin Globulin POC Glucose 11/25/18 11/24/18 11/24/18 06:45 21:38 16:15 POC Glucose 143 H 233 H 175 H 11/24/18 11:57 POC Glucose 238 H Medical Necessity - Tobacco Use Smoking Status: Former smoker Assessment/Plan All Active Problems (Last Reviewed 08/17/18 @ 10:27 by Brissa Santoro NP-C) Upper GI bleed (Acute) Acute blood loss anemia (Acute) History of aortic valve replacement with bioprosthetic valve (Resolved 01/24/16) H/O mitral valve repair (Resolved 01/24/16) Aortic stenosis, severe (Resolved) Hypokalemia (Resolved) Pneumonia (Resolved) Severe sepsis (Resolved) Shortness of breath (Resolved) Supratherapeutic INR (Resolved) RECOMMENDATIONS: 1. Continue q. before meals and at bedtime blood sugar evaluations 2. Walking oximetry prior to discharge 3. Likely okay to transition to p.o. PPI 4. Okay to reinitiate anticoagulation from my perspective IMPRESSIONS: 1. Hemorrhagic shock secondary to acute GI bleed Unclear etiology at this time. Patient did have a slightly elevated INR and received K Centra. Initial elevated BUN would be suggestive of a protracted course. No ulcer or source of bleeding was noted on EGD. Hemoglobin has remained stable, so likely okay to reinitiate anticoagulation from my perspective. Patient will likely have to be followed once anticoagulation is reinitiated. Patient has received 3 units of packed red blood cells and is not incrementing appropriately indicating possible slow bleed. However, none is no table clinically. Blood pressure is normalized following blood transfusions. 2. Chronic diastolic CHF/PAF status post Maze procedure/CAD/type II pulmonary hypertension/history of sick sinus status post pacemaker Patient appears to be doing well at this time. Patient does have significant diastolic dysfunction and is receiving significant fluids at this time. Okay to resume baseline diuretic therapy. Continue to keep saturations 88 to 92%. Elevated heart rate at this time appears to be responding well to volume resuscitation. Patient did have an elevated pulmonary artery pressure on last echocardiogram. 3. Acute kidney injury Normalizing. Improving with hemodynamic stability. Patient likely has significant elevation of BUN secondary to GI bleed. We will continue with volume resuscitation. Hyperkalemia likely secondary to acidosis related to lactic acid. 4. Hearing loss/anxiety/depression/CLEMENT/advanced age/diabetes mellitus Complicates care, management, recovery and prognosis. Okay to continue with baseline CPAP therapy. Okay to resume home diabetic medications from my perspective. Code Visit Inpatient E&M: 45321 Subs Hosp L2
[2018-11-25] MEDS: 0.9% NaCl IVPB Med Flush (250 mL) 15 ML IV ×2 (10:00→16:48)
[2018-11-25] MEDS: Ferrous Sulfate 325 MG Tablet PO ×2 (10:04→17:28)
--- NOTE | 2018-11-25 10:30 | CASEMGMT ---
Addendum entered by Bebo Leos 11/25/18 13:02: Script for OP therapy PT/OT obtained from Dr Mcbride and given to pt's . Original Note: WILLEM ANTONIO NOTE: Reviewed PT/OT evals. To room to talk with pt. Introduced self and role of WILLEM ANTONIO. Pt resting quietly in bed. A/O. and son @ bedside. Discussed PT/OT recommendations for further therapy. Discussed HHC vs OP therapy. Son and both state pt would benefit from OP therapy and pt is agreeable. and son state pt has been to [facility] in the past and prefer for pt to go there. Will get OP script from MD and give to pt/family. Ellen SAPP RN, CM
[2018-11-25] MEDS: Insulin Lispro 100 UNIT/ML INSULN.PEN SC ×3 (11:32→22:38)
[2018-11-25 11:51] LABS: Bedside Glucose 260 mg/dL (70-110)
--- NOTE | 2018-11-25 13:27 | CASEMGMT ---
LW/PODede in echart, SW printed and placed in chart. ZO Riley
[2018-11-25] MEDS: Furosemide 40 MG/4 ML Vial IV (15:09)
[2018-11-25] MEDS: Digoxin 250 MCG/ML Ampul IV ×2 (15:09→22:49)
[2018-11-25] MEDS: Carvedilol 6.25 MG Tablet PO (17:29)
[2018-11-25 17:41] LABS: Bedside Glucose 265 mg/dL (70-110)
--- NOTE | 2018-11-25 21:43 | PN_ITS ---
Patient Problems: Active and Suspected Problems (Last Reviewed 08/17/18 @ 10:27 by Brissa Santoro NP-Gary) Upper GI bleed (Acute) Acute blood loss anemia (Acute) Subjective: Afebrile, blood pressure is stable. Heart rate is increased today and telemetry shows atrial fibrillation with rapid ventricular response - has been off Coreg due to hypotension. Previously was mostly paced. He is c/o lightheadedness with standing and GRIFFIN today. Orthostatics are negative HGB is 7.8 today and he denies having any BM's and also denies abd pain, nausea and vomiting. Phosphorus is low at 1.9 and supplementation was ordered. Objective: PHYSICAL EXAM: GENERAL: alert, oriented X 3, Cooperative, NAD, sitting in the recliner, looks a little apprehensive ORAL: moist mucosa, no mucosal lesions NECK: No JVD, supple, trachea midline LUNGS: rales in the R base, symmetric chest expansion, mild conversational dy spnea, no accessory muscle use HEART: irreg irreg with tachycardia, Normal S1 and S2, no rub, no gallop ABDOMEN: soft, NT, ND, BS present and are not hyperactive, no guarding with palpation EXTREMITIES: no edema, no cyanosis, no calf tenderness SKIN: No rashes, no breakdown NEUROLOGIC: no focal neurologic deficits PSYCH: appropriate, normal affect, pleasant - Physical Exam Vital Signs Temp Pulse Resp BP Pulse Ox 98.2 F 104 H 18 149/71 H 94 11/25/18 19:01 11/25/18 19:01 11/25/18 19:01 11/25/18 19:01 11/25/18 19:01 Oxygen Flow Rate (L/min) [3] 6 Oxygen Flow Rate (L/min) [1 ( 6 Initial Baseline)] Oxygen Flow Rate (L/min) 2 Oxygen Delivery Method [3] Room Air Oxygen Delivery Method [1 ( Nasal Cannula Initial Baseline)] Oxygen Delivery Method Room Air Weight: 211 lb 6.773 oz Body Mass Index (BMI) 33.1 Finger Stick Blood Glucose 235 Orthostatic Vital Signs Start: 11/25/18 16:55 Freq: q24h Status: Active Protocol: Activity Type Activity Date Activity User E-Sign Co-Sign Detail Recorded Client Recorded Date Recorded By Document 11/25/18 16:55 [facility] [id number] 11/25/18 17:05 [facility] 11/25/18 16:55 Orthostatic Vitals Standing -Blood Pressure (90/60-120/80 mm Hg) 171/86 H -Extremity Use Right Arm -Pulse Rate (60-100 beats/min) 123 H Sitting -Blood Pressure (90/60-120/80 mm Hg) 138/90 H -Extremity Use Right Arm -Pulse Rate (60-100 beats/min) 113 H Lying -Blood Pressure (90/60-120/80 mm Hg) 144/75 H -Extremity Use Right Arm -Pulse Rate (60-100 beats/min) 108 H Intake and Output for Last 24 Hours 11/23/18 11/24/18 11/25/18 23:59 23:59 23:59 Intake Total 3776 / 3776 1548.83 / 1548.83 1023.00 / 1023.00 Output Total 1200 / 1200 1050 / 1050 2925 / 2925 Balance 2576 / 2576 498.83 / 498.83 -1902.00 / -1902.00 Laboratory Tests Past 24 Hrs 11/23/18 11/24/18 11/25/18 09:59 22:15 05:06 WBC 4.8 RBC 2.62 L Hgb 8.0 L 7.8 L Hct 24.0 L 24.8 L MCV 94.7 H MCH 29.8 MCHC 31.5 L RDW Std Deviation 55.9 H RDW Coeff of Heidi 17.3 H Plt Count 111 L MPV 10.2 Sodium Potassium Chloride Carbon Dioxide Anion Gap BUN Creatinine Estim Creat Clear Calc Est GFR (MDRD) Af Amer Est GFR (MDRD) Non-Af BUN/Creatinine Ratio Glucose Calcium Phosphorus Magnesium Crossmatch See Detail 11/25/18 05:06 WBC RBC Hgb Hct MCV MCH MCHC RDW Std Deviation RDW Coeff of Heidi Plt Count MPV Sodium 142 Potassium 4.3 Chloride 112 H Carbon Dioxide 24.0 Anion Gap 6 BUN 36 H Creatinine 1.18 Estim Creat Clear Calc 49.01 Est GFR (MDRD) Af Amer 77 Est GFR (MDRD) Non-Af 64 BUN/Creatinine Ratio 30.5 H Glucose 127 H Calcium 8.0 L Phosphorus 1.9 L Magnesium 2.1 Crossmatch POC Glucose 11/25/18 11/25/18 11/25/18 17:27 11:31 06:45 POC Glucose 265 H 260 H 143 H 11/24/18 21:38 POC Glucose 233 H Medical Necessity - Tobacco Use Smoking Status: Former smoker Assessment/Plan All Active Problems (Last Reviewed 08/17/18 @ 10:27 by Brissa Santoro, PAULETTE-C) Upper GI bleed (Acute) Acute blood loss anemia (Acute) History of aortic valve replacement with bioprosthetic valve (Resolved 01/24/16) H/O mitral valve repair (Resolved 01/24/16) Aortic stenosis, severe (Resolved) Hypokalemia (Resolved) Pneumonia (Resolved) Severe sepsis (Resolved) Shortness of breath (Resolved) Supratherapeutic INR (Resolved) Impressions 1. Hemorrhagic shock secondary to acute GI bleed-EGD did not reveal source of bleeding. He received Kcentra in the emergency department. Hypotension has resolved and now the BP is actually increased....has been off Coreg. 2. Acute renal failure on chronic renal failure stage II?3-resolved 3. Acute on chronic anemia secondary to acute blOod loss 4. Chronic anticoagulation with warfarin for atrial fibrillation -reversed with Kcentra at admission 5. Chronic atrial fibrillation-status post Maze procedure 6. Diabetes mellitus type 2 7. GERD 8. History of peptic ulcer disease 9. History of mitral valve repair and bioprosthetic aortic valve replacement 10. acute Chronic diastolic congestive heart failure with a preserved ejection fraction of 60% - more likely than not related to IV fluids used for hypertension and AF with RVR 11. Stage III diastolic dysfunction 12. Moderate to severe pulmonary hypertension with a PA systolic estimated at 60 13. Mild aortic stenosis with a calculated valve area of 1.6 cm? 14. Supratherapeutic INR-reversed with Kcentra 15. From vascular disease 16. Obstructive sleep apnea on CPAP 17. Hypertension 18. Hyperlipidemia 19. History of sick sinus syndrome with pacemaker implantation 20. Osteoarthritis 21. Anxiety/depression 22. Presbycusis 23. Obesity 24. Hypokalemia-supplementation has been ordered Lasix 40 mg IV now Type and cross for 2 units of packed red blood cells and transfuse 1 unit today for symptomatic anemia with lightheadedness with standing and dyspnea on exertion Recheck lab in the a.m. Restart Coreg at 6.25 mg twice daily and increase to 12.5 mg as the blood pressure tolerates Digoxin 250 mcg x 1 for rate control When the hemoglobin has been stable for 7 to 10 days will need to restart anticoagulation Code Visit Inpatient E&M: 96899 Subs Hosp L3
[2018-11-25] MEDS: Pantoprazole Sodium 40 MG Tablet PO (22:38)
[2018-11-25] MEDS: 0.9% NaCl Peripheral Flush Adult/Peds IV (22:50)
[2018-11-25 23:11] LABS: Bedside Glucose 270 mg/dL (70-110)
--- NOTE | 2018-11-25 23:45 | NURSING ---
This RN handed over care to new RN
[2018-11-26 02:42] VITALS: PULSE 105
[2018-11-26 03:24] VITALS: BP 119/77; PULSE 98; RESP 16; TEMP 37; O2SAT 95
[2018-11-26 05:50] LABS: Hematocrit 28.5 % (40-54); Hemoglobin 9.4 g/dL (13.0-16.5); Mean Corpuscular Hgb 30.7 pg (27.0-32.0); Mean Corpuscular Volume 93.1 fL (80-94); Mean Platelet Vol. 10.3 fl (6.2-12.0); Platelet Count 123 K/mm3 (150-450); RBC Distribution Width CV 17.2 % (11.6-14.6); RBC Distribution Width SD 53.9 fl (35.1-43.9); Red Blood Count 3.06 M/mm3 (4.6-6.2); White Blood Count 6.3 K/mm3 (4.4-11.0)
[2018-11-26 06:05] LABS: Anion Gap 9 (5-15); BUN 24 mg/dL (7-18); BUN/Creat Ratio 20.9 RATIO (10-20); Calcium,Total 8.5 mg/dL (8.5-10.1); Chloride 110 mmol/L (98-107); Creatinine, Serum 1.15 mg/dL (0.70-1.30); EST Glomerular Filtration Rate 66 mL/min (>60); Est Glom Filt Rate - Afr Amer 79 mL/min (>60); Estimated Creatinine Clearance 50.29 ml/min; Glucose 173 mg/dL (74-106); Phosphorus 2.4 mg/dL (2.5-4.9); Potassium 4.2 mmol/L (3.5-5.1); Sodium Level 142 mmol/L (136-145)
[2018-11-26] MEDS: Insulin Lispro 100 UNIT/ML INSULN.PEN SC ×2 (06:51→11:20)
[2018-11-26 06:55] LABS: Bedside Glucose 176 mg/dL (70-110)
[2018-11-26 07:00] VITALS: PULSE 109
[2018-11-26 07:13] VITALS: O2SAT 96
--- NOTE | 2018-11-26 07:45 | PN_ITS ---
Patient Problems: Active and Suspected Problems (Last Reviewed 08/17/18 @ 10:27 by ALEX Huber) Upper GI bleed (Acute) Acute blood loss anemia (Acute) Subjective: Patient did well overnight. Patient with no complaints this morning. Patient denies any issues with standing this morning. Patient has been reinitiated on Coreg and appears to be tolerating well. Patient denies any signs or symptoms of bleeding. - Physical Exam General: Alert, Oriented x3, Cooperative, No apparent distress, Well developed, Well nourished, - - No conversational dyspnea. Speaking in full sentences. HEENT: Atraumatic, PERRLA, EOMI, Normocephalic, - - No scleral icterus or injection noted. Oral: Moist Mucosa, No Gingival or Mucosal Lesions/ Ulcerations Neck: Supple, No JVD, No Nodes, Trachea Midline Lungs: No rhonchi, No wheeze, Diminished, Rales - Improved with deep inhalation Cardiovascular: Normal S1, Normal S2, No murmurs, Irregular Rate, No rub noted, No Gallop Abdomen: Bowel Sounds Present, Soft, Non Tender, Non-Distended, Obese Extremities: No clubbing, No cyanosis, No edema, Capillary Refill Less than 3 Seconds Skin: No rashes, No breakdown Musculoskeletal: No Tenderness to Palpation of Joints or Extremities Lymphatic: No Cervical, Supraclavicular, or Inguinal Adenopathy Neurological: Cranial nerves II-XII grossly intact, Neuro grossly intact, Motor Exam 5/5 strength throughout Psych/Mental Status: Alert and oriented to time, place, person, mood and affect Vital Signs Temp Pulse Resp BP Pulse Ox 37.0 C 98 16 119/77 95 11/26/18 03:24 11/26/18 03:24 11/26/18 03:24 11/26/18 03:24 11/26/18 03:24 Oxygen Flow Rate (L/min) [3] 6 Oxygen Flow Rate (L/min) [1 ( 6 Initial Baseline)] Oxygen Flow Rate (L/min) 2 Oxygen Delivery Method [3] Room Air Oxygen Delivery Method [1 ( Nasal Cannula Initial Baseline)] Oxygen Delivery Method Room Air Weight: 94.9 kg Body Mass Index (BMI) 33.1 Finger Stick Blood Glucose 235 Orthostatic Vital Signs Start: 11/25/18 16:55 Freq: q24h Status: Active Protocol: Activity Type Activity Date Activity User E-Sign Co-Sign Detail Recorded Client Recorded Date Recorded By Document 11/25/18 16:55 JOSE [id number] 11/25/18 17:05 [facility] 11/25/18 16:55 Orthostatic Vitals Standing -Blood Pressure (90/60-120/80) 171/86 H -Extremity Use Right Arm -Pulse Rate (60-100) 123 H Sitting -Blood Pressure (90/60-120/80) 138/90 H -Extremity Use Right Arm -Pulse Rate (60-100) 113 H Lying -Blood Pressure (90/60-120/80) 144/75 H -Extremity Use Right Arm -Pulse Rate (60-100) 108 H Intake and Output for Last 24 Hours 11/24/18 11/25/18 11/26/18 23:59 23:59 23:59 Intake Total 1548.83 / 1548.83 1283.00 / 1283.00 0 / 0 Output Total 1050 / 1050 3750 / 3750 690 / 690 Balance 498.83 / 498.83 -2467.00 / -2467.00 -690 / -690 Laboratory Tests Past 24 Hrs 11/23/18 11/26/18 11/26/18 09:59 05:10 05:10 WBC 6.3 RBC 3.06 L Hgb 9.4 L Hct 28.5 L MCV 93.1 MCH 30.7 MCHC 33.0 RDW Std Deviation 53.9 H RDW Coeff of Heidi 17.2 H Plt Count 123 L MPV 10.3 Sodium 142 Potassium 4.2 Chloride 110 H Carbon Dioxide 23.0 Anion Gap 9 BUN 24 H Creatinine 1.15 Estim Creat Clear Calc 50.29 Est GFR (MDRD) Af Amer 79 Est GFR (MDRD) Non-Af 66 BUN/Creatinine Ratio 20.9 H Glucose 173 H Calcium 8.5 Phosphorus 2.4 L Crossmatch See Detail POC Glucose 11/26/18 11/25/18 11/25/18 06:49 22:36 17:27 POC Glucose 176 H 270 H 265 H 11/25/18 11:31 POC Glucose 260 H Medical Necessity - Tobacco Use Smoking Status: Former smoker Assessment/Plan All Active Problems (Last Reviewed 08/17/18 @ 10:27 by Brissa Santoro, SLOT OPERATIONS DIRECTOR-C) Upper GI bleed (Acute) Acute blood loss anemia (Acute) History of aortic valve replacement with bioprosthetic valve (Resolved 01/24/16) H/O mitral valve repair (Resolved 01/24/16) Aortic stenosis, severe (Resolved) Hypokalemia (Resolved) Pneumonia (Resolved) Severe sepsis (Resolved) Shortness of breath (Resolved) Supratherapeutic INR (Resolved) RECOMMENDATIONS: 1. Continue q. before meals and at bedtime blood sugar evaluations 2. Walking oximetry prior to discharge 3. Hemodynamically stable on room air. Will sign off from a critical care perspective 4. Okay to reinitiate anticoagulation from my perspective IMPRESSIONS: 1. Hemorrhagic shock secondary to acute GI bleed Unclear etiology at this time. Patient did have a slightly elevated INR and received K Centra. Initial elevated BUN would be suggestive of a protracted course. No ulcer or source of bleeding was noted on EGD. Hemoglobin has remained stable, so likely okay to reinitiate anticoagulation from my perspective. Patient will likely have to be followed once anticoagulation is reinitiated. Patient has received a total of 4 units of packed red blood cells and is not incrementing appropriately indicating possible slow bleed. However, none is notable clinically. Blood pressure is normalized following blood transfusions. 2. Chronic diastolic CHF/PAF status post Maze procedure/CAD/type II pulmonary hypertension/history of sick sinus status post pacemaker Patient appears to be doing well at this time. Patient does have significant diastolic dysfunction and is receiving significant fluids at this time. Okay to resume baseline diuretic therapy. Continue to keep saturations 88 to 92%. Patient has responded well to Lasix and addition of beta-blockers. Continue rate control. Patient does have a pacemaker. 3. Acute kidney injury Normalizing. Improving with hemodynamic stability. Patient likely has significant elevation of BUN secondary to GI bleed. We will continue with volume resuscitation. Hyperkalemia likely secondary to acidosis related to lactic acid and has normalized at this point. 4. Hearing loss/anxiety/depression/CLEMENT/advanced age/diabetes mellitus Complicates care, management, recovery and prognosis. Okay to continue with baseline CPAP therapy. Okay to resume home diabetic medications from my perspective. Code Visit Inpatient E&M: 51800 Subs Hosp L2
--- NOTE | 2018-11-26 07:46 | PN.SURG_ITS ---
Patient Problems: Active and Suspected Problems (Last Reviewed 08/17/18 @ 10:27 by ALEX Huber) Upper GI bleed (Acute) Acute blood loss anemia (Acute) Subjective: Patient reports he is tolerating diet with no abdominal pain. He has not had bowel movement since admission. - Physical Exam General: Alert, Oriented x3 Lungs: Normal air movement Cardiovascular: Regular rate, Regular Rhythm Abdomen: Soft, Non Tender, Non-Distended Vital Signs Temp Pulse Resp BP Pulse Ox 98.6 F 98 16 119/77 95 11/26/18 03:24 11/26/18 03:24 11/26/18 03:24 11/26/18 03:24 11/26/18 03:24 Oxygen Flow Rate (L/min) [3] 6 Oxygen Flow Rate (L/min) [1 ( 6 Initial Baseline)] Oxygen Flow Rate (L/min) 2 Oxygen Delivery Method [3] Room Air Oxygen Delivery Method [1 ( Nasal Cannula Initial Baseline)] Oxygen Delivery Method Room Air Weight: 209 lb 3.499 oz Body Mass Index (BMI) 33.1 Finger Stick Blood Glucose 235 Orthostatic Vital Signs Start: 11/25/18 16:55 Freq: q24h Status: Active Protocol: Activity Type Activity Date Activity User E-Sign Co-Sign Detail Recorded Client Recorded Date Recorded By Document 11/25/18 16:55 [facility] [id number] 11/25/18 17:05 [facility] 11/25/18 16:55 Orthostatic Vitals Standing -Blood Pressure (90/60-120/80) 171/86 H -Extremity Use Right Arm -Pulse Rate (60-100) 123 H Sitting -Blood Pressure (90/60-120/80) 138/90 H -Extremity Use Right Arm -Pulse Rate (60-100) 113 H Lying -Blood Pressure (90/60-120/80) 144/75 H -Extremity Use Right Arm -Pulse Rate (60-100) 108 H Intake and Output for Last 24 Hours 11/24/18 11/25/18 11/26/18 23:59 23:59 23:59 Intake Total 1548.83 / 1548.83 1283.00 / 1283.00 0 / 0 Output Total 1050 / 1050 3750 / 3750 690 / 690 Balance 498.83 / 498.83 -2467.00 / -2467.00 -690 / -690 Laboratory Tests Past 24 Hrs 11/23/18 11/26/18 11/26/18 09:59 05:10 05:10 WBC 6.3 RBC 3.06 L Hgb 9.4 L Hct 28.5 L MCV 93.1 MCH 30.7 MCHC 33.0 RDW Std Deviation 53.9 H RDW Coeff of Heidi 17.2 H Plt Count 123 L MPV 10.3 Sodium 142 Potassium 4.2 Chloride 110 H Carbon Dioxide 23.0 Anion Gap 9 BUN 24 H Creatinine 1.15 Estim Creat Clear Calc 50.29 Est GFR (MDRD) Af Amer 79 Est GFR (MDRD) Non-Af 66 BUN/Creatinine Ratio 20.9 H Glucose 173 H Calcium 8.5 Phosphorus 2.4 L Crossmatch See Detail POC Glucose 11/26/18 11/25/18 11/25/18 06:49 22:36 17:27 POC Glucose 176 H 270 H 265 H 11/25/18 11:31 POC Glucose 260 H Medical Necessity - Tobacco Use Smoking Status: Former smoker Assessment/Plan All Active Problems (Last Reviewed 08/17/18 @ 10:27 by Brissa Santoro NP-C) Upper GI bleed (Acute) Acute blood loss anemia (Acute) History of aortic valve replacement with bioprosthetic valve (Resolved 01/24/16) H/O mitral valve repair (Resolved 01/24/16) Aortic stenosis, severe (Resolved) Hypokalemia (Resolved) Pneumonia (Resolved) Severe sepsis (Resolved) Shortness of breath (Resolved) Supratherapeutic INR (Resolved) 78-year-old male with a GI bleed 1. Patient appears to be doing well. He received blood transfusion yesterday for orthostatic hypotension. His hemoglobin is 9.4 today. He has no signs of ongoing bleeding. He may resume his anticoagulation. I would recommend that he be discharged home on a PPI. I do not believe a repeat endoscopy is warranted at this time. If he begins to rebleed I would repeat the endoscopy. Patient may also need a cathartic as he has not had a bowel movement since admission. Hermann Campoevrde MD Pager: [facility] [address] [place] [address], [address] [place] [address] Office:
[2018-11-26 09:05] VITALS: BP 133/72; PULSE 107; RESP 16; TEMP 37; O2SAT 93
[2018-11-26] MEDS: Ferrous Sulfate 325 MG Tablet PO (09:08)
[2018-11-26] MEDS: Pantoprazole Sodium 40 MG Tablet PO (09:08)
[2018-11-26] MEDS: Carvedilol 6.25 MG Tablet PO (09:08)
--- NOTE | 2018-11-26 10:00 | CASEMGMT ---
Per physician patient and his would like patient to go to [facility] if he does not do better with therapy today. SW spoke with patient and his , introduced self and role at [facility]. They confirmed this would be the plan. SW did give them a list of local SNF's and told them SW will check back with them after therapy sees him. Arabella MARTÍNEZ MSW
[2018-11-26 11:25] LABS: Bedside Glucose 326 mg/dL (70-110)
--- NOTE | 2018-11-26 12:08 | CASEMGMT ---
Patient did much better with therapy today. ANTIONE spoke with patient and his . They said therapy told them they recommend home. She said they already have an order for outpatient therapy with [facility]. ANTIONE told them SW will let physician know that they would like home. ANTIONE notified physician as well as RN. Plan: Home with a previous order for outpatient therapy. Arabella MARTÍNEZ MSW
--- NOTE | 2018-11-26 12:12 | DCINST_ITS ---
- Discharge Diagnoses Current Active Problems: Current Active and Chronic Problems (Last Reviewed 08/17/18 @ 10:27 by ALEX Huber) Upper GI bleed (Acute) HTN (hypertension) (Chronic) Acute blood loss anemia (Acute) Iron deficiency anemia (Chronic) You will use the following diet at home:: Calorie/Carbohydrate Controlled (specify 1200, 1400, etc) - 2000 nidia / day, Cardiac Your food should be the consistency of: Regular Your liquids should be the consistency of: Regular/Thin Discharge Activity: Return to Normal Activity Allergies/Adverse Reactions: Allergies No Known Allergies Allergy (Verified 09/29/18 14:18) Medications to take at Discharge Potassium Chloride [K-Dur] 10 meq PO DAILY 01/07/18 glimepiride 4 mg tablet 2 mg PO DAILY@0800 tab 01/22/18 lisinopril 5 mg tablet 5 mg PO DAILY #90 tab 01/22/18 metformin 500 mg tablet 1,000 mg PO BIDCM tab 01/22/18 furosemide 40 mg tablet 40 mg PO DAILY #90 tab 02/03/18 pioglitazone 30 mg tablet 45 mg PO DAILY@0800 tab 03/05/18 Carvedilol [Coreg (Beta Brandi)] 6.25 mg PO BIDCM tab 11/26/18 Ferrous Sulfate 325 mg PO BIDCM #60 tab 11/26/18 Pantoprazole Sodium [Protonix] 40 mg PO BID #60 tab 11/26/18 The following prescriptions were given: Ferrous Sulfate 325 mg PO BIDCM #60 tab Transmission Status: Pending to [facility] Pantoprazole Sodium [Protonix] 40 mg PO BID #60 tab Transmission Status: Pending to [facility] Primary Care Physician: Lei Funes DO [Primary Care Provider] - Please follow up with your Primary Care Physician in: 2 weeks Test Results: Test results from this visit will be discussed in further detail at your follow- up appointment, if applicable. Please Follow Up With: Deven Ramirez MD When: 2 weeks Please Follow Up With: Hermann Campoverde MD When: 2 weeks
--- NOTE | 2018-11-26 12:15 | DS.PCM_ITS ---
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 Iron deficiency anemia PVD Hx Peptic ulcer disease, GERD Chronic Afib s/p Maze procedure Hx mitral and aortic valve repair Chronic diastolic CHF, pulmonary HTN, aortic stenosis, CLEMENT SSS with pacemaker in place Anx/Depression Obesity Dmt2 - Secondary Discharge Diagnosis Chronic Problems (Last Reviewed 08/17/18 @ 10:27 by ALEX Huber) HTN (hypertension) (Chronic) Iron deficiency anemia (Chronic) Lung nodule (Chronic) Obesity (BMI 30.0-34.9) (Chronic) CLEMENT (obstructive sleep apnea) (Chronic) Chronic diastolic (congestive) heart failure (Chronic) Diastolic dysfunction (Chronic) Non-rheumatic tricuspid valve insufficiency (Chronic) Chronic atrial fibrillation (Chronic) S/P MAZE procedure in 2016; Secondary pulmonary arterial hypertension (Chronic) Presence of permanent cardiac pacemaker (Chronic) Permanent pacemaker placement 02/02/16 Sick sinus syndrome (Chronic) 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 Tolliver @ [facility] Hyperlipidemia (Chronic) Status post mitral valve repair (Chronic) mitral valve repair and MAZE procedure 01/24/[address] Tolliver @ [facility] 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) Aortic Valve Replacement w/ 23-mm Jay-Aragon pericardial valve Hospital Course and Treatment Imaging Results: EGD REPORT: Impressions : - Chronic gastritis with hemorrhage. - No specimens collected. Recommendations : - Observe patient in emergency room for ongoing care. - Clear liquid diet. - Use a proton pump inhibitor IV BID. - The patient has taken no previous anticoagulant or antiplatelet agents and therefore does not require instructions for their resumption. Consults: Nirali - Gen Surgery Alan - Critical Care Operations: None Procedures: Blood transfusion, EGD Summary of Care Provided: Hospital Course: The patient is a 78 year old M with extensive medical hx as above most notably for chronic afib on warfarin, PVD on pletal, hx peptic ulcer disease and GERD, who presented tot he ER with black/dark red stools, recent bloody vomiting, and sycnope at home, brought to the ER by squad who was found to be severely anemic, hypotensive, and with BEBA. He was presumed to have an upper GI bleed. INR was 3.9. He was given Kcentra and 2 units of PRBCs, and IV protonix. Gen surgery was consulted. He was taken for an EGD which was unremarkable. His blood pressure and hgb improved with treatment and he had no further bleeding. He remained orthostatic and was given a third unit of blood. He worked with PT OT and did well after the 3rd unit. He was placed on BID protonix and Iron. He was advised to remain off pletal and warfarin for now. He will need to follow up with his PCP, General surgeon, and vascular surgeon in 2 weeks. He was discharged home in stable condition. He will resume outpatient PTOT at discharge. This patient was seen by Dilip Wright PA-C under the supervision of Doctor Burgos. [] Patient Problems: Active and Suspected Problems (Last Reviewed 08/17/18 @ 10:27 by ALEX Huber) Upper GI bleed (Acute) Acute blood loss anemia (Acute) - Physical Exam General: Alert, Oriented x3, Cooperative HEENT: Atraumatic, PERRLA, EOMI, Normocephalic Neck: Supple, No JVD, Negative Carotid Bruits Lungs: Normal air movement, No rales - RLL Cardiovascular: Regular rate, No murmurs Abdomen: Bowel Sounds Present, Soft, Non Tender, Obese Extremities: No edema, Capillary Refill Less than 3 Seconds Skin: No rashes, No breakdown Musculoskeletal: No Tenderness to Palpation of Joints or Extremities Neurological: Cranial nerves II-XII grossly intact Psych/Mental Status: Normal Affect, Appropriate Vital Signs Temp Pulse Resp BP Pulse Ox 98.6 F 107 H 16 133/72 H 93 11/26/18 09:05 11/26/18 09:05 11/26/18 09:05 11/26/18 09:05 11/26/18 09:05 Oxygen Flow Rate (L/min) [3] 6 Oxygen Flow Rate (L/min) [1 ( 6 Initial Baseline)] Oxygen Flow Rate (L/min) 2 Oxygen Delivery Method [3] Room Air Oxygen Delivery Method [1 ( Nasal Cannula Initial Baseline)] Oxygen Delivery Method Room Air Weight: 209 lb 3.499 oz Body Mass Index (BMI) 33.1 Finger Stick Blood Glucose 235 Orthostatic Vital Signs Start: 11/25/18 16:55 Freq: q24h Status: Active Protocol: Activity Type Activity Date Activity User E-Sign Co-Sign Detail Recorded Client Recorded Date Recorded By Document 11/25/18 16:55 [facility] [id number] 11/25/18 17:05 [facility] 11/25/18 16:55 Orthostatic Vitals Standing -Blood Pressure (90/60-120/80) 171/86 H -Extremity Use Right Arm -Pulse Rate (60-100) 123 H Sitting -Blood Pressure (90/60-120/80) 138/90 H -Extremity Use Right Arm -Pulse Rate (60-100) 113 H Lying -Blood Pressure (90/60-120/80) 144/75 H -Extremity Use Right Arm -Pulse Rate (60-100) 108 H Intake and Output for Last 24 Hours 11/24/18 11/25/18 11/26/18 23:59 23:59 23:59 Intake Total 1548.83 / 1548.83 1283.00 / 1283.00 600 / 600 Output Total 1050 / 1050 3750 / 3750 990 / 990 Balance 498.83 / 498.83 -2467.00 / -2467.00 -390 / -390 Laboratory Tests Past 24 Hrs 11/23/18 11/26/18 11/26/18 09:59 05:10 05:10 WBC 6.3 RBC 3.06 L Hgb 9.4 L Hct 28.5 L MCV 93.1 MCH 30.7 MCHC 33.0 RDW Std Deviation 53.9 H RDW Coeff of Heidi 17.2 H Plt Count 123 L MPV 10.3 Sodium 142 Potassium 4.2 Chloride 110 H Carbon Dioxide 23.0 Anion Gap 9 BUN 24 H Creatinine 1.15 Estim Creat Clear Calc 50.29 Est GFR (MDRD) Af Amer 79 Est GFR (MDRD) Non-Af 66 BUN/Creatinine Ratio 20.9 H Glucose 173 H Calcium 8.5 Phosphorus 2.4 L Crossmatch See Detail POC Glucose 11/26/18 11/26/18 11/25/18 11:17 06:49 22:36 POC Glucose 326 H 176 H 270 H 11/25/18 17:27 POC Glucose 265 H Discharge Diet: Low fat/ Low Cholesterol, 2000 mg Sodium Diet Discharge Activity: Return to Normal Activity Home Medications: Medications to take at Discharge Potassium Chloride [K-Dur] 10 meq PO DAILY 01/07/18 glimepiride 4 mg tablet 2 mg PO DAILY@0800 tab 01/22/18 lisinopril 5 mg tablet 5 mg PO DAILY #90 tab 01/22/18 metformin 500 mg tablet 1,000 mg PO BIDCM tab 01/22/18 furosemide 40 mg tablet 40 mg PO DAILY #90 tab 02/03/18 pioglitazone 30 mg tablet 45 mg PO DAILY@0800 tab 03/05/18 Carvedilol [Coreg (Beta Brandi)] 6.25 mg PO BIDCM tab 11/26/18 Ferrous Sulfate 325 mg PO BIDCM #60 tab 11/26/18 Pantoprazole Sodium [Protonix] 40 mg PO BID #60 tab 11/26/18 Following Prescrptions Were Given to Patient: Ferrous Sulfate 325 mg PO BIDCM #60 tab Transmission Status: Received by [facility] Pantoprazole Sodium [Protonix] 40 mg PO BID #60 tab Transmission Status: Received by [facility]AL[facility] [place] [address] Primary Care Physician: Lei Funes DO [Primary Care Provider] - Please follow up with your Primary Care Physician in: 2 weeks Please Follow Up With: Deven Ramirez MD When: 2 weeks Please Follow Up With: Hermann Campoverde MD When: 2 weeks Disposition: Home Minutes spent on discharge:: 35 Patient Condition:: Stable Medical Necessity - Tobacco Use Smoking Status: Former smoker Meaningful Use Info Meaningful Use Diagnoses (Choose all that apply): None applicable
--- NOTE | 2018-11-27 13:58 | CASEMGMT ---
WILLEM ANTONIO DC PHONE CALL DC DATE: 11/26/18 DC Disposition: Home Diagnosis on Discharge: UGIB LACE/STRATA: 02/07 Intro role of CM to patient's via phone, pt was not available. per , pt is doing well. He came to ER last night due to increased redness, warmth and pain @ previous IV site in L antecubital area. Antibiotics were ordered and states site looks much improved today. No other questions re: instructions, prescriptions or f/u. did not have care improvement instructions. She stated the care @ [facility] was amazing. Fabricio MCDONOUGHN RN ACM
== END 2018-11-26 14:27 | disposition home or self-care (01) | DRG 377 ==
LOC: ED 11:51 → ICU 12:03 → PCU 11-24 18:15
PROVIDERS: Internal Medicine; Surgery; Admitting Provider Family Medicine; Emergency Provider Emergency Medicine; Family Provider Family Medicine; PCP Family Medicine; Referring Provider Family Medicine; Visit Provider Internal Medicine
PROC: 0DJ08ZZ Inspection of Upper Intestinal Tract, Via Natural or Artificial Opening Endoscopic (ICD-10-PCS; CPT 43235; principal; 2018-11-23 11:10)
DX: K29.51 Unspecified chronic gastritis with bleeding (principal); R57.8 Other shock; D62 Acute posthemorrhagic anemia; N17.9 Acute kidney failure, unspecified; I13.0 Hypertensive heart and chronic kidney disease with heart failure and stage 1 through stage 4 chronic kidney disease, or unspecified chronic kidney disease; I50.32 Chronic diastolic (congestive) heart failure; E87.2 Acidosis; E87.1 Hypo-osmolality and hyponatremia; R79.1 Abnormal coagulation profile; T45.515A Adverse effect of anticoagulants, initial encounter; Y92.9 Unspecified place or not applicable; E11.22 Type 2 diabetes mellitus with diabetic chronic kidney disease; N18.2 Chronic kidney disease, stage 2 (mild); E87.5 Hyperkalemia; E87.6 Hypokalemia; E11.51 Type 2 diabetes mellitus with diabetic peripheral angiopathy without gangrene; D50.9 Iron deficiency anemia, unspecified; I48.0 Paroxysmal atrial fibrillation; I49.3 Ventricular premature depolarization; I34.0 Nonrheumatic mitral (valve) insufficiency; I35.0 Nonrheumatic aortic (valve) stenosis; I35.1 Nonrheumatic aortic (valve) insufficiency; I36.1 Nonrheumatic tricuspid (valve) insufficiency; I27.21 Secondary pulmonary arterial hypertension; I49.5 Sick sinus syndrome; I25.10 Atherosclerotic heart disease of native coronary artery without angina pectoris; E03.9 Hypothyroidism, unspecified; E78.5 Hyperlipidemia, unspecified; G47.33 Obstructive sleep apnea (adult) (pediatric); K21.9 Gastro-esophageal reflux disease without esophagitis; F32.9 Major depressive disorder, single episode, unspecified; F41.9 Anxiety disorder, unspecified; M81.0 Age-related osteoporosis without current pathological fracture; E66.9 Obesity, unspecified; Z68.33 Body mass index [BMI] 33.0-33.9, adult; Z79.01 Long term (current) use of anticoagulants; Z79.02 Long term (current) use of antithrombotics/antiplatelets; Z79.82 Long term (current) use of aspirin; Z79.84 Long term (current) use of oral hypoglycemic drugs; Z79.899 Other long term (current) drug therapy; Z87.11 Personal history of peptic ulcer disease; Z87.891 Personal history of nicotine dependence; Z95.0 Presence of cardiac pacemaker; Z95.2 Presence of prosthetic heart valve; Z96.652 Presence of left artificial knee joint
CPT/HCPCS: 36415; 80048; 80076; 82962; 83605; 83735; 84100; 85014; 85018; 85025; 85027; 85610; 85730; 86850; 86900; 86901; 86920; 86922; 93005; 94660; 97162; 97165; 97530; 99285; C9132; J1756; J7030; J7040; J7050; P9016; P9040; A4216; J1940; J3490; J7799

== ENCOUNTER 2018-11-26 21:40 | Emergency (ER) | payer MEDICARE, OTHER, SELFPAY ==
[2018-11-26 21:40] VITALS: BP 120/59; PULSE 112; RESP 22; TEMP 36.9; O2SAT 95; BMI 32.4
--- NOTE | 2018-11-26 22:04 | ED.VISSUMM ---
- ER Visit Summary Date of Service: 11/26/18 Chief Complaint: [Redness to IV site and left arm] History of Present Illness: The patient is a 78 M [presents to the emergency department after being discharged from the hospital today. Patient had been admitted for an upper GI bleed. He had an IV in his left antecubital that was somewhat uncomfortable earlier today as well but he did not mention it. noted that there was swelling and redness to the area at this evening and she brought him back for evaluation. Has had no fevers. Patient has history of coronary artery disease, hypertension, A. fib, CHF, high cholesterol.] Physical Examination: [HEENT-PERRLA, EOMI. Cranial nerves II through XII grossly intact. TMs clear. Mucous membranes moist. No adenopathy. Cardiovascular-regular rate and rhythm without murmur or ectopy Lungs-clear to auscultation, chest wall stable without crepitus or subcu emphysema Abdomen-normoactive bowel sounds, soft, nontender, no rebound or rigidity, no peritoneal signs. Extremities-intact ?4, normal range of motion, normal pulses. Left arm-patient does have induration in the antecubital area along the venous vasculature. Patient does have surrounding erythema and warmth. Patient has tenderness to palpation. Neurovascular intact distally.] Test Results: [None indicated] Emergency Department Course and Treatment: [He was started on Keflex and Bactrim. Suspect patient likely has a thrombophlebitis related to the IV however I am concerned about development of cellulitis as well. Patient does have surrounding erythema and warmth which was outlined in marker.] Treatment Plan: [She will be treated with Keflex and Bactrim and advised to use warm compresses to the area. Patient to follow-up with primary care physician within next 2 to 3 days for repeat exam. Patient to return if fever, increased redness, increased swelling, or conditions worsen anyway.] Disposition: [Discharged home stable condition] Impression: [Thrombophlebitis Cellulitis] This note was generated with [employer] dictation software. It may contain incorrect words, spelling, and punctuation that were not noted in review of the chart prior to signing ED Disposition - Plan for ED Patient: Referrals: Lei Funes DO [Primary Care Provider] -
--- NOTE | 2018-11-26 22:07 | ED.DEP ---
ED Disposition - Plan for ED Patient: Instructions: Cellulitis, THROMBOPHLEBITIS, Superficial Prescriptions: Smz/Tmp Ds [Bactrim Ds] 1 tab PO BID #14 tab Prescription Printed Cephalexin [Keflex] 500 mg PO Q6 #40 cap Prescription Printed Referrals: Lei Funes DO [Primary Care Provider] - 1-2 Days if not improving
[2018-11-26] MEDS: Cephalexin 250 MG Capsule 500 MG PO (22:20)
[2018-11-26] MEDS: Smz/Tmp Ds Tablet 1 TABLET PO (22:20)
== END 2018-11-26 22:23 | disposition home or self-care (01) ==
LOC: ED 22:06
PROVIDERS: Emergency Provider Emergency Medicine; Family Provider Family Medicine; PCP Family Medicine
DX: L03.114 Cellulitis of left upper limb (principal); I80.8 Phlebitis and thrombophlebitis of other sites; I11.0 Hypertensive heart disease with heart failure; I50.9 Heart failure, unspecified; I25.10 Atherosclerotic heart disease of native coronary artery without angina pectoris; I48.91 Unspecified atrial fibrillation; E78.00 Pure hypercholesterolemia, unspecified; Z79.84 Long term (current) use of oral hypoglycemic drugs; Z79.899 Other long term (current) drug therapy; Z87.19 Personal history of other diseases of the digestive system
CPT/HCPCS: 99283

== ENCOUNTER → 2018-12-10 13:09 | Outpatient (CLI) | payer MEDICARE, OTHER, SELFPAY ==
[2018-12-10 13:03] VITALS: BMI 33.1
[2018-12-10 13:40] LABS: Hemoglobin 10.4 g/dL (13.0-16.5)
== END ==
PROVIDERS: Family Provider Family Medicine; PCP Family Medicine; Referring Provider Surgery; Visit Provider Surgery
DX: K92.2 Gastrointestinal hemorrhage, unspecified (principal)
CPT/HCPCS: 36415; 85014; 85018

== ENCOUNTER 2018-12-18 11:47 | Emergency (ER) | payer MEDICARE, OTHER, SELFPAY ==
[2018-12-10 13:03] VITALS: BMI 33.1
[2018-12-18 11:47] VITALS: BP 74/40; PULSE 123; RESP 18; TEMP 36.1; O2SAT 94; BMI 31.6
--- NOTE | 2018-12-18 12:26 | EKG12_ITS ---
Test Reason : Blood Pressure : / mmHG Vent. Rate : 122 BPM Atrial Rate : 122 BPM P-R Int : 000 ms QRS Dur : 122 ms QT Int : 346 ms P-R-T Axes : 000 -28 027 degrees QTc Int : 493 ms Atrial Fibrillation Right bundle branch block Inferior infarct (cited on or before 23-NOV-2018) Abnormal ECG Leftward [place] Confirmed by HAILEY GUERRERO, JEANINE ([id number]), editor index ROB DUMONT ([id number]) on 12/23/2018 2:20:48 PM Referred By: Hermann Campoverde Confirmed By:JEANINE HART MD
--- NOTE | 2018-12-18 12:35 | ED.DCSUM_ITS ---
History of Present Illness Chief Complaint: General Illness Onset: Today Current Severity: Mild Maximum Severity: Mild Narrative: Patient was at rehab and was found to be hypotensive and tachycardic. He was recently admitted for a GI bleed secondary to anticoagulation. Anticoagulation was secondary to A. fib, this was stopped. He feels slightly weak but otherwise does not feel lightheaded, does not feel dizzy, does not have any abdominal pain no recent black or dark stools. No vomiting. He denies abdominal pain. He denies any fever chills urinary symptoms cough or congestion. Past Medical History - Allergies and Home Meds Allergies/Adverse Reactions: Allergies No Known Allergies Allergy (Verified 12/02/18 11:28) Primary Care Physician: Lei Funes DO [Primary Care Provider] - Past Medical History: - - Multiple medical problems including A. fib, diabetes. [facility] Surgical History: noncontributory, - - Left total knee replacement, R shoulder arthroscopic surgery, pacemaker, valve repair/replacement (prosthetic), gamma knife intervention, MAZE procedure. Smoking Status: Former smoker - Family History Maternal Family History: Family History (This Medical Record has been edited. Action required.) Mother Myocardial infarction CAD (coronary artery disease) Hypertension Sister Hypertension CVA (cerebral vascular accident) Son Diabetes Mother Myocardial infarction CAD (coronary artery disease) Hypertension Brother Myocardial infarction CAD (coronary artery disease) Cancer Sister Myocardial infarction CAD (coronary artery disease) CVA (cerebral vascular accident) Hypertension Son Diabetes Family History: Reports: Heart Disease, Hypertension Paternal Family History: Family History (This Medical Record has been edited. Action required.) Mother Myocardial infarction CAD (coronary artery disease) Hypertension Sister Hypertension CVA (cerebral vascular accident) Son Diabetes Mother Myocardial infarction CAD (coronary artery disease) Hypertension Brother Myocardial infarction CAD (coronary artery disease) Cancer Sister Myocardial infarction CAD (coronary artery disease) CVA (cerebral vascular accident) Hypertension Son Diabetes Family History: Reports: Heart Disease, Hypertension Sibling Family History: Family History (This Medical Record has been edited. Action required.) Mother Myocardial infarction CAD (coronary artery disease) Hypertension Sister Hypertension CVA (cerebral vascular accident) Son Diabetes Mother Myocardial infarction CAD (coronary artery disease) Hypertension Brother Myocardial infarction CAD (coronary artery disease) Cancer Sister Myocardial infarction CAD (coronary artery disease) CVA (cerebral vascular accident) Hypertension Son Diabetes Family History: Reports: Hypertension, Stroke Offspring Family History: Family History (This Medical Record has been edited. Action required.) Mother Myocardial infarction CAD (coronary artery disease) Hypertension Sister Hypertension CVA (cerebral vascular accident) Son Diabetes Mother Myocardial infarction CAD (coronary artery disease) Hypertension Brother Myocardial infarction CAD (coronary artery disease) Cancer Sister Myocardial infarction CAD (coronary artery disease) CVA (cerebral vascular accident) Hypertension Son Diabetes Family History: Reports: Diabetes Review of Systems All systems negative except as indicated General: Denies: Fever Eyes: Denies: Visual changes - bilaterally Cardiovascular: Denies: Chest pain, Palpitations Respiratory: Denies: Dyspnea, Cough Gastrointestinal: Denies: Abdominal pain, Nausea Musculoskeletal: Denies: Neck pain, Back pain Skin: Denies: Rash, Abrasions Neurological: Reports: Weakness - Slight weakness no focal weakness.. Denies: Headache Endocrine: Denies: Polydipsia Hematologic: Denies: Easy bruising Allergy: Denies: Uticaria Physical Exam Vital Signs/Narrative: Vital Signs Temp Pulse Resp BP Pulse Ox 12/18/18 11:47 97 F L 123 H 18 74/40 L 94 General: Well nourished, Well developed Head: Normocephalic ENT: Moist mucous membranes Neck: Supple Cardiovascular: - - Slightly irregular tachycardia Respiratory: No distress Abdomen: Soft, Nontender Back: Nontender, Normal Inspection Skin: Normal color Neurological: Alert, Oriented x3 Psychological: Normal affect Diagnostic/Tx/Re-eval - Medical Decision Making Patient has A. fib, this is chronic he is no longer anticoagulated due to his massive GI bleed, he tells me the A. fib is paroxysmal. His A. fib today is somewhat rate control between 104 and 120 he is asymptomatic therefore I will not give him AV timur blocking agents. He has a unchanged hemoglobin he is am bulated. His blood pressure has been normal in the emergency department. I believe he is stable for discharge, if he gets worse he needs to return. ED Disposition - Plan for ED Patient: Disposition: Home or Assisted Living Diagnosis: Atrial fibrillation Instructions: Atrial Fibrillation Referrals: Lei Funes DO [Primary Care Provider] - 3-5 Days
[2018-12-18] MEDS: 0.9% Normal Saline 1,000 ML 1000 ML IV (12:43)
[2018-12-18 12:56] LABS: Absolute Lymphocyte Count 0.59 X10^3/uL (0.83-4.51); Absolute Neutrophil Count 3.4 X10^3/uL (2.0-7.7); Basophil# 0.03 X10^3/uL; Basophil% 0.7 % (0-1); Eosinophil# 0.04 X10^3/uL; Eosinophils% 0.9 % (0-5); Hematocrit 32.4 % (40-54); Lymphocyte # 0.59 X10^3/ul (4.0); Lymphocyte % 13.1 % (19-41); Mean Corp Hgb Conc 30.9 g/dL (32-36); Mean Corpuscular Hgb 29.9 pg (27.0-32.0); Mean Platelet Vol. 10.5 fl (6.2-12.0); Monocyte# 0.39 X10^3/uL; Monocyte% 8.7 % (0-10); NRBC Flagged by Analyzer 0 % (0-5); Neutrophil # 3.41 X10^3/uL (2.7-7.7); Neutrophil % 75.7 % (47-70); POSITIVE DIFFERENTIAL YES; Platelet Count 155 K/mm3 (150-450); RBC Distribution Width CV 17.1 % (11.6-14.6); Red Blood Count 3.34 M/mm3 (4.6-6.2); White Blood Count 4.5 K/mm3 (4.4-11.0)
[2018-12-18 13:00] VITALS: BP 111/68; PULSE 122; RESP 21; O2SAT 92
[2018-12-18 13:02] LABS: Differential Indicated SCAN CRITERIA MET
[2018-12-18 13:05] LABS: International Normalized Ratio 1.2; Prothrombin Time (Protime)PT. 14.7 SECONDS (11.7-14.9)
[2018-12-18 13:07] LABS: AST(SGOT) 12 U/L (15-37); Alanine Aminotransfer ALT/SGPT 21 U/L (16-61); Albumin, Serum 3.5 g/dL (3.2-5.0); Alkaline Phosphatase 70 U/L (45-117); Anion Gap 7 (5-15); BUN 38 mg/dL (7-18); BUN/Creat Ratio 21.2 RATIO (10-20); Calcium,Total 8.9 mg/dL (8.5-10.1); Chloride 108 mmol/L (98-107); Creatinine, Serum 1.79 mg/dL (0.70-1.30); EST Glomerular Filtration Rate 39 mL/min (>60); Est Glom Filt Rate - Afr Amer 48 mL/min (>60); Estimated Creatinine Clearance 32.31 ml/min; Globulin 3.5 g/dL (2.2-4.2); Glucose 149 mg/dL (74-106); Potassium 4.3 mmol/L (3.5-5.1); Sodium Level 139 mmol/L (136-145)
[2018-12-18 13:44] LABS: Platelet Estimate ADEQUATE (ADEQ)
[2018-12-18 13:45] LABS: Anisocytosis 2+; Polychromasia RARE; Red Cell Morphology NORM C+C NORMAL (NORM C&C)
[2018-12-18 14:00] VITALS: BP 113/56; PULSE 121; RESP 16; O2SAT 97
[2018-12-18 15:37] VITALS: BP 113/56; PULSE 121; RESP 16; O2SAT 97
== END 2018-12-18 15:39 | disposition home or self-care (01) ==
PROVIDERS: Emergency Provider Emergency Medicine; Family Provider Family Medicine; PCP Family Medicine
DX: I48.2 Chronic atrial fibrillation (principal); E11.9 Type 2 diabetes mellitus without complications; Z79.84 Long term (current) use of oral hypoglycemic drugs; Z79.899 Other long term (current) drug therapy; Z87.891 Personal history of nicotine dependence; Z96.652 Presence of left artificial knee joint; Z95.0 Presence of cardiac pacemaker
CPT/HCPCS: 80053; 84484; 85025; 85610; 86850; 86900; 86901; 93005; 96360; 96361; 99284; J7030; A4216

== ENCOUNTER → 2019-01-11 10:16 | Outpatient (CLI) | payer MEDICARE, OTHER, SELFPAY ==
[2018-09-29 12:58] VITALS: BMI 32.7
[2018-12-18 11:47] VITALS: BMI 31.6
[2019-01-11 12:39] LABS: Absolute Lymphocyte Count 0.66 X10^3/uL (0.83-4.51); Absolute Neutrophil Count 2.7 X10^3/uL (2.0-7.7); Basophil# 0.03 X10^3/uL; Basophil% 0.8 % (0-1); Eosinophil# 0.07 X10^3/uL; Eosinophils% 1.8 % (0-5); Hematocrit 34.3 % (40-54); Hemoglobin 10.8 g/dL (13.0-16.5); Lymphocyte # 0.66 X10^3/ul (4.0); Lymphocyte % 16.7 % (19-41); Mean Corp Hgb Conc 31.5 g/dL (32-36); Mean Corpuscular Hgb 30.9 pg (27.0-32.0); Mean Corpuscular Volume 98.3 fL (80-94); Mean Platelet Vol. 11.7 fl (6.2-12.0); Monocyte# 0.43 X10^3/uL; Monocyte% 10.9 % (0-10); NRBC Flagged by Analyzer 0 % (0-5); Neutrophil # 2.74 X10^3/uL (2.7-7.7); Platelet Count 148 K/mm3 (150-450); RBC Distribution Width CV 15.9 % (11.6-14.6); RBC Distribution Width SD 56.8 fl (35.1-43.9); Red Blood Count 3.49 M/mm3 (4.6-6.2)
[2019-01-11 12:40] LABS: ALB/GLOB Ratio 1.1 RATIO (0.9-2.4); AST(SGOT) 12 U/L (15-37); Alanine Aminotransfer ALT/SGPT 27 U/L (16-61); Albumin, Serum 3.9 g/dL (3.2-5.0); Alkaline Phosphatase 79 U/L (45-117); Anion Gap 7 (5-15); BUN 30 mg/dL (7-18); BUN/Creat Ratio 21.7 RATIO (10-20); Chloride 106 mmol/L (98-107); Cholesterol 151 mg/dL (200); Creatinine, Serum 1.38 mg/dL (0.70-1.30); EST Glomerular Filtration Rate 53 mL/min (>60); Est Glom Filt Rate - Afr Amer 64 mL/min (>60); Ferritin 27 ng/mL (26-388); Globulin 3.4 g/dL (2.2-4.2); Glucose 228 mg/dL (74-106); High Density Lipoprotein 36 mg/dL; Iron 60 ug/dL (65-175); Potassium 4.4 mmol/L (3.5-5.1); Protein, Total 7.3 g/dL (6.4-8.2); Sodium Level 138 mmol/L (136-145); Triglycerides 157 mg/dL; Very Low Density Lipoprotein 31 mg/dL (5-40)
[2019-01-11 12:41] LABS: Hemoglobin A1c 5.9 % (4.2-6.3)
== END ==
PROVIDERS: Family Provider Family Medicine; PCP Family Medicine; Visit Provider Family Medicine
DX: E11.40 Type 2 diabetes mellitus with diabetic neuropathy, unspecified (principal); I10 Essential (primary) hypertension; D50.9 Iron deficiency anemia, unspecified
CPT/HCPCS: 36415; 80053; 80061; 82728; 83036; 83540; 85025

== ENCOUNTER → 2019-02-05 16:41 | Outpatient (CLI) | payer MEDICARE, OTHER, SELFPAY ==
--- NOTE | 2019-02-05 16:44 | CT_ITS ---
STUDY: CT BRAIN WITH AND WITHOUT CONTRAST REASON FOR EXAM: Male, 78 years old. Benign right brain tumor, confusion RADIATION DOSAGE (If Supplied By Facility): CTDIvol = ( 44.99 ) mGy, DLP = ( 1580.97 ) mGycm TECHNIQUE: Transaxial CT imaging of the brain was performed pre and post contrast administration. The examination was performed with intravenous administration of IV Isovue 370 100. Individualized dose optimization techniques were used for this CT. COMPARISON: 07 January 2018, FINDINGS: Brain parenchyma is intact without focal lesions or abnormal enhancement. There is no acute intracranial hemorrhage, extra parenchymal fluid collections, mass effect, hydrocephalus or herniation. There is moderate chronic white matter ischemic involutional change. 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 The skull is intact. Appearance is similar to prior. CT/Brain/Head W/WO Contrast IMPRESSION: 1. No acute or focal findings. 2. No change since prior. 3. Moderate chronic white matter ischemic change. 4. Right cerebellar pontine involuted meningioma. Electronically Signed: Bao Means, at 17:15 EDT Tel , Service support ,
== END ==
PROVIDERS: Family Provider Family Medicine; PCP Family Medicine; Referring Provider Family Medicine; Visit Provider Family Medicine
DX: D33.2 Benign neoplasm of brain, unspecified (principal); R41.0 Disorientation, unspecified
CPT/HCPCS: 70470; Q9967

== ENCOUNTER → 2019-05-18 13:58 | Outpatient (CLI) | payer MEDICARE, OTHER, SELFPAY ==
[2019-05-18 12:32] VITALS: BMI 34.1
[2019-05-18 15:09] LABS: Absolute Lymphocyte Count 0.79 X10^3/uL (0.83-4.51); Absolute Neutrophil Count 4.1 X10^3/uL (2.0-7.7); Basophil# 0.03 X10^3/uL; Basophil% 0.5 % (0-1); Eosinophil# 0.05 X10^3/uL; Eosinophils% 0.9 % (0-5); Hematocrit 35.1 % (40-54); Hemoglobin 11.1 g/dL (13.0-16.5); Lymphocyte # 0.79 X10^3/ul (4.0); Lymphocyte % 14.2 % (19-41); Mean Corp Hgb Conc 31.6 g/dL (32-36); Mean Corpuscular Hgb 29.1 pg (27.0-32.0); Mean Corpuscular Volume 91.9 fL (80-94); Mean Platelet Vol. 11.4 fl (6.2-12.0); Monocyte# 0.56 X10^3/uL; Monocyte% 10.1 % (0-10); NRBC Flagged by Analyzer 0 % (0-5); Neutrophil # 4.11 X10^3/uL (2.7-7.7); Neutrophil % 73.8 % (47-70); Platelet Count 199 K/mm3 (150-450); RBC Distribution Width CV 16.4 % (11.6-14.6); RBC Distribution Width SD 55.5 fl (35.1-43.9); Red Blood Count 3.82 M/mm3 (4.6-6.2); White Blood Count 5.6 K/mm3 (4.4-11.0)
[2019-05-18 16:10] LABS: BNP,B-Type NATRIURETIC PEPTIDE 122.6 pg/mL (0-100)
[2019-05-18 16:19] LABS: Anion Gap 8 (5-15); BUN 31 mg/dL (7-18); BUN/Creat Ratio 19.1 RATIO (10-20); Calcium,Total 9.6 mg/dL (8.5-10.1); Chloride 104 mmol/L (98-107); Creatinine, Serum 1.62 mg/dL (0.70-1.30); EST Glomerular Filtration Rate 44 mL/min (>60); Est Glom Filt Rate - Afr Amer 53 mL/min (>60); Glucose 194 mg/dL (74-106); Potassium 4.6 mmol/L (3.5-5.1); Sodium Level 136 mmol/L (136-145)
== END ==
PROVIDERS: PCP Family Medicine; Referring Provider Nurse Practitioner Family; Visit Provider Nurse Practitioner Family
DX: I25.10 Atherosclerotic heart disease of native coronary artery without angina pectoris (principal); I50.32 Chronic diastolic (congestive) heart failure; I48.20 Chronic atrial fibrillation, unspecified; I49.5 Sick sinus syndrome; E78.5 Hyperlipidemia, unspecified; R06.09 Other forms of dyspnea; Z95.3 Presence of xenogenic heart valve; Z95.0 Presence of cardiac pacemaker; Z98.890 Other specified postprocedural states
CPT/HCPCS: 36415; 80048; 83880; 85025

== ENCOUNTER → 2019-05-24 08:42 | Outpatient (CLI) | payer MEDICARE, OTHER, SELFPAY ==
[2019-05-20 09:45] VITALS: BMI 34.1
[2019-05-24 09:12] VITALS: PULSE 100; PULSE 102; PULSE 104; PULSE 107; PULSE 110; PULSE 96; O2SAT 91; O2SAT 92; O2SAT 93; O2SAT 94; O2SAT 96; O2SAT 97
--- NOTE | 2019-05-24 16:23 | WT_ITS ---
PSN 6 Minute Walk Test - 6 Minute Walk Test 6 Minute Walk Test: 6 Minute Walk Test PSN:6-Minute Walk Test Start: 05/24/19 09:12 Freq: Status: Active Protocol: RESP.6MINW Document 05/24/19 09:12 [facility] (Rec: 05/24/19 09:18 [facility] [id number]) 6 Minute Walk Test Date Performed 05/24/19 Time Performed 09:00 Height 5 ft 7 in Weight: 97.522 kg Weight in Pounds 215.[address]: Brissa Santoro Assistive device used: None Pre-test Oxygen Delivery Method Room Air Pulse Ox (%) 96 Pulse Rate (60-100 beats/min) 100 Dyspnea Anjel Scale (0-10) 1 1st minute Oxygen Delivery Method Room Air Pulse Ox (%) 92 Pulse Rate (60-100 beats/min) 104 H Dyspnea Anjel Scale (0-10) 1 Number of Rests Taken 0 2nd minute Oxygen Delivery Method Room Air Pulse Ox (%) 91 Pulse Rate (60-100 beats/min) 96 Dyspnea Anjel Scale (0-10) 1 Number of Rests Taken 0 3rd minute Oxygen Delivery Method Room Air Pulse Ox (%) 91 Pulse Rate (60-100 beats/min) 100 Dyspnea Anjel Scale (0-10) 2 Number of Rests Taken 0 4th minute Oxygen Delivery Method Room Air Pulse Ox (%) 93 Pulse Rate (60-100 beats/min) 104 H Dyspnea Anjel Scale (0-10) 2 Number of Rests Taken 0 5th minute Oxygen Delivery Method Room Air Pulse Ox (%) 93 Pulse Rate (60-100 beats/min) 107 H Dyspnea Anjel Scale (0-10) 3 Number of Rests Taken 0 Reported Symptoms Increased Work of Breathing 6th minute Oxygen Delivery Method Room Air Pulse Ox (%) 94 Pulse Rate (60-100 beats/min) 110 H Dyspnea Anjel Scale (0-10) 4 Number of Rests Taken 0 Reported Symptoms Increased Work of Breathing Post-test Oxygen Delivery Method Room Air Pulse Ox (%) 97 Pulse Rate (60-100 beats/min) 102 H Dyspnea Anjel Scale (0-10) 1 Full Laps Walked 6 Partial Lap, Number of Tiles Walked 16 Total Distance Walked (ft) 370 - Interpretation Interpretation: The patient was able to ambulate 370 feet over the course of 6 minutes on room air with the assistance of a cane and no breaks. Patient did have significant desaturation from a baseline of 96% to as low as 91% with significant tachycardia of 110 bpm. These findings are consistent with a respiratory limitation exercise tolerance. - Recommendations Recommendations: No supplemental oxygen is indicated at this time. However, patient will need to be followed closely given level of desaturation.
== END ==
PROVIDERS: PCP Family Medicine; Referring Provider Nurse Practitioner Acute Care; Visit Provider Nurse Practitioner Acute Care
DX: R06.02 Shortness of breath (principal)
CPT/HCPCS: 94618

== ENCOUNTER → 2019-05-25 07:51 | Outpatient (CLI) | payer MEDICARE, OTHER, SELFPAY ==
[2019-05-20 09:45] VITALS: BMI 34.1
--- NOTE | 2019-05-25 16:20 | PFTCOMP ---
COMPLETE PULMONARY FUNCTION TEST INTERPRETATION Brief HPI: Patient is a 78 year old male, currently under the care of Dr. Love, who presents to [facility] for complete pulmonary function tests secondary to diagnosis of dyspnea. Respiratory therapist reports good effort and reproducible results. Interpretation: Forced expiration spirometry shows no large airways obstructive ventilatory defect with an FEV1 of 83% predicted. There is no significant bronchodilator response by strict ATS criteria. Spirograms are of good quality and plateau slowly, indicating slowly emptying areas of the lungs. The respiratory flow volume loop shows decreased expiratory flow rates at high lung volumes consistent with small airways obstruction. Lung volumes by body plethysmography show a normal total lung capacity at 4.87 L, 86% predicted. All other lung volumes are within normal limits. Diffusion capacity by carbon monoxide is decreased at 51% predicted. The airway resistance is normal. No previous pulmonary function tests were available for review. Impression: Isolated reduction in diffusion capacity with some stigmata of small airways disease.
== END ==
PROVIDERS: PCP Family Medicine; Referring Provider Nurse Practitioner Acute Care; Visit Provider Nurse Practitioner Acute Care
DX: R06.02 Shortness of breath (principal)
CPT/HCPCS: 94060; 94726; 94729

== ENCOUNTER → 2019-06-02 07:58 | Outpatient (CLI) | payer MEDICARE, OTHER, SELFPAY ==
[2019-05-20 09:45] VITALS: BMI 34.1
[2019-06-02 09:08] LABS: ALB/GLOB Ratio 0.9 RATIO (0.9-2.4); AST(SGOT) 13 U/L (15-37); Alanine Aminotransfer ALT/SGPT 26 U/L (16-61); Albumin, Serum 3.5 g/dL (3.2-5.0); Alkaline Phosphatase 88 U/L (45-117); Anion Gap 8 (5-15); BUN 26 mg/dL (7-18); BUN/Creat Ratio 16.7 RATIO (10-20); Bilirubin, Direct 0.15 mg/dL (0.00-0.30); Calcium,Total 8.9 mg/dL (8.5-10.1); Chloride 106 mmol/L (98-107); Cholesterol 126 mg/dL (200); Creatinine, Serum 1.56 mg/dL (0.70-1.30); EST Glomerular Filtration Rate 46 mL/min (>60); Est Glom Filt Rate - Afr Amer 56 mL/min (>60); Globulin 4.1 g/dL (2.2-4.2); Glucose 230 mg/dL (74-106); High Density Lipoprotein 35 mg/dL; Potassium 4.8 mmol/L (3.5-5.1); Protein, Total 7.6 g/dL (6.4-8.2); Sodium Level 137 mmol/L (136-145); Triglycerides 139 mg/dL; Very Low Density Lipoprotein 28 mg/dL (5-40)
== END ==
LOC: LAB.FUTURE 07:59 → LAB 08:00
PROVIDERS: Nurse Practitioner Family; PCP Family Medicine; Referring Provider Family Medicine; Visit Provider Family Medicine
DX: R14.0 Abdominal distension (gaseous) (principal); R73.9 Hyperglycemia, unspecified; E78.5 Hyperlipidemia, unspecified
CPT/HCPCS: 36415; 80053; 80061; 82248; 82533

== ENCOUNTER → 2019-06-09 07:42 | Outpatient (CLI) | payer MEDICARE, OTHER, SELFPAY ==
[2019-05-20 09:45] VITALS: BMI 34.1
[2019-06-07 07:44] VITALS: BMI 33.2
--- NOTE | 2019-06-09 07:44 | US_ITS ---
STUDY: PAROTID ULTRASOUND REASON FOR EXAM: Male, 78 years old. SWELLING OF PAROTID GLANDS TECHNIQUE: Sonographic evaluation of the bilateral parotid glands COMPARISON: None. FINDINGS: Both parotid glands are enlarged. Right measures 7.0 x 6.6 x 2.5 cm, left measures 7.3 x 6.4 x 3.0 cm. However, both are homogeneous. There is no hyperemia or evidence to suspect inflammation or obstructed duct. No discrete lesion is identified. US/Head/Neck Soft Tissue IMPRESSION: Bilateral homogeneously enlarged parotid glands. Electronically Signed: Jean Carlos Quiles MD at 17:54 EST , Service support ,
--- NOTE | 2019-06-09 07:44 | US_ITS ---
STUDY: ABDOMINAL ULTRASOUND REASON FOR EXAM: Male, 78 years old. INCREASED ABD GIRTH TECHNIQUE: Transabdominal ultrasound was performed with real-time and static de león scale imaging. TECHNICAL QUALITY: Adequate. COMPARISON: None. FINDINGS: Liver: The liver measures 17.5 cm. There is increased echogenicity consistent with fatty infiltration. The bile ducts are within normal limits. There is hepatic color flow. The direction of portal flow is hepatopetal. There is no demonstrated mass lesion. Portal vein measurement: Gallbladder: Normal distended gallbladder. The gallbladder wall measures 2.9 mm. There is a negative sonographic Fernández''s sign. There is no pericholecystic fluid. There are multiple echogenic structures within the gallbladder, consistent with multiple gallstones. Sludge is seen within the gallbladder lumen. Common Bile Duct (C.B.D.): The common bile duct measures 3.6 mm. Pancreas: Normal size of the head, body and tail of the pancreas. There is increased echogenicity of the pancreas. There is no demonstrated pancreatic mass or cyst. Spleen: Normal size of the spleen. The spleen measures 13.1 cm x 5.3 cm x 5.1 cm. There is a 1.6 cm x 1.5 cm x 1.3 cm hyperechoic nodule within the spleen. Right Kidney: Normal size of the right kidney. The right kidney measures 11.7 cm x 5.6 cm x 4.5 cm. Normal renal cortex. The right cortex measures 1.3 cm. There is a 2.6 cm x 2.5 cm x 2.1 cm cyst. There is no right hydronephrosis. Left Kidney: Normal size of the left kidney. The left kidney measures 11.6 x 5.27 x 5.8 cm. Normal renal cortex. The left cortex measures 1.6 cm. 2 cysts are seen. The larger measures 1.8 cm x 1.1 sign by 1.5 cm. There is no left hydronephrosis. Aorta: Unremarkable. I.V.C.: The IVC is patent. There is no ascites. US/Abdomen Complete IMPRESSION: Mild hepatomegaly with fatty infiltration of the liver. Bilateral renal cysts. Mild splenomegaly. Electronically Signed: Kalyan Grimm, at 13:15 EST , Service support ,
== END ==
PROVIDERS: PCP Family Medicine; Referring Provider Family Medicine; Visit Provider Family Medicine
DX: R22.0 Localized swelling, mass and lump, head (principal); R14.0 Abdominal distension (gaseous); R18.8 Other ascites
CPT/HCPCS: 76536; 76700

== ENCOUNTER → 2019-10-13 10:58 | Outpatient (CLI) | payer MEDICARE, OTHER, SELFPAY ==
[2019-02-16 06:46] VITALS: BMI 33.6
[2019-06-07 07:44] VITALS: BMI 33.2
[2019-10-13 12:53] LABS: Absolute Lymphocyte Count 0.79 X10^3/uL (0.83-4.51); Absolute Neutrophil Count 4.1 X10^3/uL (2.0-7.7); Basophil# 0.03 X10^3/uL; Basophil% 0.5 % (0-1); Eosinophil# 0.06 X10^3/uL; Eosinophils% 1.1 % (0-5); Hematocrit 36.5 % (40-54); Hemoglobin 11.8 g/dL (13.0-16.5); Lymphocyte # 0.79 X10^3/ul (4.0); Lymphocyte % 14.3 % (19-41); Mean Corp Hgb Conc 32.3 g/dL (32-36); Mean Corpuscular Hgb 29.1 pg (27.0-32.0); Mean Corpuscular Volume 90.1 fL (80-94); Mean Platelet Vol. 11.2 fl (6.2-12.0); Monocyte# 0.47 X10^3/uL; Monocyte% 8.5 % (0-10); NRBC Flagged by Analyzer 0 % (0-5); Neutrophil # 4.12 X10^3/uL (2.7-7.7); Neutrophil % 74.7 % (47-70); Platelet Count 175 K/mm3 (150-450); RBC Distribution Width CV 15.4 % (11.6-14.6); RBC Distribution Width SD 50.3 fl (35.1-43.9); Red Blood Count 4.05 M/mm3 (4.6-6.2); White Blood Count 5.5 K/mm3 (4.4-11.0)
[2019-10-13 13:18] LABS: Hemoglobin A1c 8.7 % (3.8-5.6)
[2019-10-13 15:53] LABS: Anion Gap 10 (5-15); BUN 39 mg/dL (7-18); BUN/Creat Ratio 23.6 RATIO (10-20); Calcium,Total 8.9 mg/dL (8.5-10.1); Chloride 101 mmol/L (98-107); Creatinine, Serum 1.65 mg/dL (0.70-1.30); EST Glomerular Filtration Rate 43 mL/min (>60); Est Glom Filt Rate - Afr Amer 52 mL/min (>60); Ferritin 26 ng/mL (26-388); Glucose 204 mg/dL (74-106); Iron 91 ug/dL (65-175); Potassium 5.1 mmol/L (3.5-5.1); Sodium Level 133 mmol/L (136-145)
== END ==
PROVIDERS: PCP Family Medicine; Visit Provider Family Medicine
DX: E11.40 Type 2 diabetes mellitus with diabetic neuropathy, unspecified (principal); E11.22 Type 2 diabetes mellitus with diabetic chronic kidney disease; I12.9 Hypertensive chronic kidney disease with stage 1 through stage 4 chronic kidney disease, or unspecified chronic kidney disease; N18.3 Chronic kidney disease, stage 3 (moderate); D50.9 Iron deficiency anemia, unspecified
CPT/HCPCS: 36415; 80048; 82728; 83036; 83540; 85025

== ENCOUNTER → 2019-11-02 10:11 | Outpatient (CLI) | payer MEDICARE, OTHER, SELFPAY ==
[2019-06-07 07:44] VITALS: BMI 33.2
[2019-11-02 12:23] LABS: PSA,Total- Diagnostic 0.28 ng/mL (0.0-4.0)
== END ==
PROVIDERS: PCP Family Medicine; Visit Provider Urology
DX: C61 Malignant neoplasm of prostate (principal); R97.20 Elevated prostate specific antigen [PSA]
CPT/HCPCS: 36415; 84153

== ENCOUNTER 2019-12-28 10:45 | Emergency (ER) | payer MEDICARE, OTHER, SELFPAY ==
[2019-06-07 07:44] VITALS: BMI 33.2
[2019-12-28 10:46] VITALS: BP 148/69; PULSE 86; RESP 17; TEMP 36.4; O2SAT 99; BMI 31.3
[2019-12-28 11:01] LABS: Bedside Glucose 357 mg/dL (70-110)
--- NOTE | 2019-12-28 11:28 | ED.VISSUMM ---
- ER Visit Summary Date of Service: 12/28/19 Chief Complaint: Hyperglycemia History of Present Illness: The patient is a 79 M who presents with hyperglycemia that was noticed today. Patient checked her sugar this morning was 407. Patient states he ate breakfast and his rechecked him after eating breakfast. She reported that his sugar was 531 at that time. Patient denies any nausea or vomiting. Patient denies any dysuria or hematuria. Patient denies any urinary frequency. Physical Examination: Vital signs are stable. Patient is afebrile. Patient is in no acute distress. Oral mucosa is pink and moist. Neck is supple. Trachea is midline. There is no JVD noted. Heart was regular rate and rhythm. Lungs are clear and equal bilaterally. Abdomen is soft. Bowel sounds are normal. There is no tenderness. There is no rebound or guarding noted. Skin is warm dry. Cranial nerves II through XII are intact. There are no focal motor or sensory deficits noted. Extremities are intact. There is no calf tenderness or edema. Test Results: CBC was essentially within normal limits. Comprehensive metabolic profile showed a mild hyperkalemia of 5.2. Glucose was 329. BUN was 31 and creatinine was 1.61. These were consistent with prior results. Urinalysis does not show any evidence of urinary tract infection. Serum ketones were negative. Emergency Department Course and Treatment: Fingerstick blood sugar here was 357. Patient was given a dose of Humalog here. Patient is feeling better on reevaluation. Patient was instructed to keep an log of his blood sugars. Patient was instructed to follow-up with his primary care physician in 5 to 7 days. Patient was instructed to take his log of blood sugars to his primary care physician appointment. Patient and family understood and were agreeable with the plan. All questions were answered. Disposition: Discharge home Impression: 1. Hyperglycemia This note was generated with [employer] software. It may contain incorrect words, spelling, and punctuation that were not noted in review of the chart prior to signing ED Disposition - Plan for ED Patient: Disposition: Home or Assisted Living Diagnosis: Hyperglycemia Instructions: ED Diabetic Hyperglycemia Referrals: Lei Funes DO [Primary Care Provider] - 5-7 Days
[2019-12-28] MEDS: 0.9% Normal Saline 1,000 ML 1000 ML IV (12:37)
[2019-12-28 12:38] LABS: Absolute Lymphocyte Count 0.42 X10^3/uL (0.83-4.51); Absolute Neutrophil Count 3.1 X10^3/uL (2.0-7.7); Basophil# 0.03 X10^3/uL; Basophil% 0.7 % (0-1); Eosinophil# 0.04 X10^3/uL; Hematocrit 32.8 % (40-54); Hemoglobin 10.7 g/dL (13.0-16.5); Lymphocyte # 0.42 X10^3/ul (4.0); Lymphocyte % 10.4 % (19-41); Mean Corp Hgb Conc 32.6 g/dL (32-36); Mean Corpuscular Hgb 28.6 pg (27.0-32.0); Mean Corpuscular Volume 87.7 fL (80-94); Mean Platelet Vol. 10.7 fl (6.2-12.0); NRBC Flagged by Analyzer 0 % (0-5); Neutrophil % 77.2 % (47-70); POSITIVE DIFFERENTIAL YES; Platelet Count 178 K/mm3 (150-450); RBC Distribution Width CV 14.8 % (11.6-14.6); RBC Distribution Width SD 47.2 fl (35.1-43.9); Red Blood Count 3.74 M/mm3 (4.6-6.2)
[2019-12-28 12:44] LABS: Differential Indicated SCAN CRITERIA MET
[2019-12-28 12:55] LABS: ALB/GLOB Ratio 0.8 RATIO (0.9-2.4); AST(SGOT) 8 U/L (15-37); Alanine Aminotransfer ALT/SGPT 25 U/L (16-61); Albumin, Serum 3.3 g/dL (3.2-5.0); Alkaline Phosphatase 107 U/L (45-117); Anion Gap 8 (5-15); BUN 31 mg/dL (7-18); BUN/Creat Ratio 19.3 RATIO (10-20); Calcium,Total 9.1 mg/dL (8.5-10.1); Chloride 103 mmol/L (98-107); Creatinine, Serum 1.61 mg/dL (0.70-1.30); EST Glomerular Filtration Rate 44 mL/min (>60); Est Glom Filt Rate - Afr Amer 54 mL/min (>60); Estimated Creatinine Clearance 35.35 ml/min; Globulin 3.9 g/dL (2.2-4.2); Glucose 329 mg/dL (74-106); Potassium 5.2 mmol/L (3.5-5.1); Protein, Total 7.2 g/dL (6.4-8.2); Sodium Level 136 mmol/L (136-145)
[2019-12-28 14:22] LABS: Bacteria 0 SEEN /hpf (None Seen); Mucous, Urine 0 SEEN /hpf (<or=2+); Red Blood Cells-Urine 0 SEEN /hpf (0-5); White Blood Cells 0 SEEN /hpf (0-5)
[2019-12-28 14:25] LABS: Color, Urine Yellow (Yellow); Glucose, Dipstick 1000 mg/dl (Normal); Ketone-Dipstick Negative (Negative); Leukocyte Esterase-Dipstick Negative /ul (Negative); Nitrite-Dipstick Negative (Negative); Occult Blood-Urine Negative /ul (Negative); Protein-Dipstick 15 mg/dl (Negative); Specific Gravity, Urine 1.015 (1.002-1.030); Urine Bilirubin Dipstick Negative (Negative); Urine Clarity Sl. Cloudy (Clear); Urine Urobilinogen Normal (Normal)
[2019-12-28 14:33] LABS: Squamous Epithelial Cells - UA 0-5 SEEN /hpf (0-5)
[2019-12-28] MEDS: Insulin Lispro 100 UNIT/ML INSULN.PEN 10 UNIT SC (15:18)
[2019-12-29 12:06] LABS: Pathologist Review Reviewed
== END 2019-12-28 15:31 | disposition home or self-care (01) ==
PROVIDERS: Emergency Provider Emergency Medicine; PCP Family Medicine
DX: E11.65 Type 2 diabetes mellitus with hyperglycemia (principal); E11.40 Type 2 diabetes mellitus with diabetic neuropathy, unspecified; E87.5 Hyperkalemia; Z79.84 Long term (current) use of oral hypoglycemic drugs; Z79.899 Other long term (current) drug therapy
CPT/HCPCS: 80053; 81001; 82009; 82962; 85025; 96360; 96361; 99283; J7030; A4216

== ENCOUNTER → 2020-01-21 09:45 | Outpatient (CLI) | payer MEDICARE, OTHER, SELFPAY ==
[2019-06-07 07:44] VITALS: BMI 33.2
[2019-12-28 10:46] VITALS: BMI 31.3
[2020-01-21 12:23] LABS: Absolute Neutrophil Count 4.3 X10^3/uL (2.0-7.7); Basophil# 0.02 X10^3/uL; Basophil% 0.4 % (0-1); Eosinophil# 0.06 X10^3/uL; Eosinophils% 1.1 % (0-5); Hematocrit 37.7 % (40-54); Hemoglobin 11.8 g/dL (13.0-16.5); Lymphocyte % 14.1 % (19-41); Mean Corp Hgb Conc 31.3 g/dL (32-36); Mean Corpuscular Hgb 27.9 pg (27.0-32.0); Mean Corpuscular Volume 89.1 fL (80-94); Mean Platelet Vol. 11.9 fl (6.2-12.0); Monocyte# 0.49 X10^3/uL; Monocyte% 8.6 % (0-10); NRBC Flagged by Analyzer 0 % (0-5); Neutrophil # 4.28 X10^3/uL (2.7-7.7); Neutrophil % 75.3 % (47-70); Platelet Count 211 K/mm3 (150-450); RBC Distribution Width CV 14.8 % (11.6-14.6); RBC Distribution Width SD 47.8 fl (35.1-43.9); Red Blood Count 4.23 M/mm3 (4.6-6.2); White Blood Count 5.7 K/mm3 (4.4-11.0)
[2020-01-21 12:40] LABS: Anion Gap 8 (5-15); BUN 24 mg/dL (7-18); BUN/Creat Ratio 15.2 RATIO (10-20); Chloride 103 mmol/L (98-107); Creatinine, Serum 1.58 mg/dL (0.70-1.30); EST Glomerular Filtration Rate 45 mL/min (>60); Est Glom Filt Rate - Afr Amer 55 mL/min (>60); Glucose 236 mg/dL (74-106); Potassium 4.2 mmol/L (3.5-5.1); Sodium Level 136 mmol/L (136-145)
[2020-01-21 13:10] LABS: Hemoglobin A1c 9.8 % (3.8-5.6)
== END ==
PROVIDERS: PCP Family Medicine; Visit Provider Family Medicine
DX: E11.40 Type 2 diabetes mellitus with diabetic neuropathy, unspecified (principal); N18.31 Chronic kidney disease, stage 3a; D50.9 Iron deficiency anemia, unspecified
CPT/HCPCS: 36415; 80048; 83036; 85025

== ENCOUNTER → 2020-02-04 12:07 | Outpatient (CLI) | payer MEDICARE, OTHER, SELFPAY ==
[2019-06-07 07:44] VITALS: BMI 33.2
[2020-02-04 12:30] VITALS: PULSE 108; PULSE 116; PULSE 121; PULSE 127; PULSE 130; PULSE 135; PULSE 94; O2SAT 90; O2SAT 91; O2SAT 93; O2SAT 96; O2SAT 97
--- NOTE | 2020-02-04 17:14 | WT_ITS ---
PSN 6 Minute Walk Test - 6 Minute Walk Test 6 Minute Walk Test: 6 Minute Walk Test PSN:6-Minute Walk Test Start: 02/04/20 12:48 Freq: Status: Active Protocol: RESP.6MINW Document 02/04/20 12:30 [facility] (Rec: 02/04/20 12:51 EW [id number]) 6 Minute Walk Test Date Performed 02/04/20 Time Performed 12:30 Height 5 ft 2 in Weight: 90.718 kg Weight in Pounds 200.[address]: Brissa Santoro [employer] Assistive device used: Cane Pre-test Oxygen Delivery Method Room Air Pulse Ox (%) 96 Pulse Rate (60-100 beats/min) 94 Dyspnea Anjel Scale (0-10) 0 Exertion Anjel Scale (6-20) 6 1st minute Oxygen Delivery Method Room Air Pulse Ox (%) 93 Pulse Rate (60-100 beats/min) 116 H 2nd minute Oxygen Delivery Method Room Air Pulse Ox (%) 90 Pulse Rate (60-100 beats/min) 121 H 3rd minute Oxygen Delivery Method Room Air Pulse Ox (%) 90 Pulse Rate (60-100 beats/min) 127 H 4th minute Oxygen Delivery Method Room Air Pulse Ox (%) 90 Pulse Rate (60-100 beats/min) 130 H 5th minute Oxygen Delivery Method Room Air Pulse Ox (%) 91 Pulse Rate (60-100 beats/min) 135 H 6th minute Oxygen Delivery Method Room Air Pulse Ox (%) 90 Pulse Rate (60-100 beats/min) 130 H Post-test Oxygen Delivery Method Room Air Pulse Ox (%) 97 Pulse Rate (60-100 beats/min) 108 H Dyspnea Anjel Scale (0-10) 4 Exertion Anjel Scale (6-20) 16 Full Laps Walked 5 Partial Lap, Number of Tiles Walked 24 Total Distance Walked (ft) 319 - Interpretation Interpretation: The patient was able to travel only 319 feet over the course of 6 minutes on room air with the assistance of a cane. The patient did experience significant desaturation with an oxygen enrrique of 90%. Patient had a peak heart rate of 135 bpm. These findings are consistent with a cardiovascular limitation exercise tolerance. - Recommendations Recommendations: No supplemental oxygen is indicated at this time. However, patient will need to be followed closely given level of desaturation.
== END ==
PROVIDERS: PCP Family Medicine; Referring Provider Nurse Practitioner Acute Care; Visit Provider Nurse Practitioner Acute Care
DX: I27.21 Secondary pulmonary arterial hypertension (principal)
CPT/HCPCS: 94618

== ENCOUNTER → 2020-02-28 20:45 | Outpatient (CLI) | payer MEDICARE, OTHER, SELFPAY ==
[2020-02-16 11:06] VITALS: BMI 30.8
== END ==
PROVIDERS: PCP Family Medicine; Referring Provider Internal Medicine Critical Care Medicine; Visit Provider Internal Medicine Critical Care Medicine
DX: G47.33 Obstructive sleep apnea (adult) (pediatric) (principal)
CPT/HCPCS: 95811

== ENCOUNTER → 2020-04-06 10:47 | Outpatient (CLI) | payer MEDICARE, OTHER, SELFPAY ==
[2020-02-16 11:06] VITALS: BMI 30.8
--- NOTE | 2020-04-06 10:48 | ART_ITS ---
Reason For Study: Atherosclerosis Procedure A bilateral lower extremity continuous wave Doppler with analog waveform analysis and ankle brachial indexes. Left Segmental Pressures Left brachial= 124mmHg. Left posterior tibial artery = 52mmHg. Left dorsalis pedis artery = 98mmHg. Left digit = 49 mmHg. The left dorsalis pedis waveforms are monophasic. The left posterior tibial artery waveforms are monophasic. Right Segmental Pressures Right brachial= 125mmHg. Right posterior tibial artery = 73mmHg. Right dorsalis pedis artery = >254mmHg. Right digit = 49 mmHg. The right dorsalis pedis waveforms are biphasic. The right posterior tibial artery waveforms are biphasic. Indices The right ankle brachial index by the dorsalis pedis is NC. The right ankle brachial index by the posterior tibial artery is 0.58. The right digital-brachial index is 0.39. The left ankle brachial index by the dorsalis pedis is 0.78. The left ankle brachial index by the posterior tibial artery is 0.42. The left digital-brachial index is 0.39. Interpretation Summary Right leg biphasic and CHU noncompressible and 0.58. Left 0.78 and 0.42 and monophasic. 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 Ordering Physician: Deven Ramirez Referring Physician: Lei Funes Performed By: Sarah Maher RVT
== END ==
PROVIDERS: PCP Family Medicine; Referring Provider Surgery Vascular Surgery; Visit Provider Surgery Vascular Surgery
DX: I70.213 Atherosclerosis of native arteries of extremities with intermittent claudication, bilateral legs (principal); I74.09 Other arterial embolism and thrombosis of abdominal aorta
CPT/HCPCS: 93922

== ENCOUNTER 2020-06-08 09:06 | Outpatient (RCR) | payer MEDICARE, OTHER, SELFPAY ==
[2020-05-10 10:51] VITALS: BMI 30.8
[2020-06-08] MEDS: COVID-19 VACC, MRNA(PFIZER)/PF 30 MCG/0.3 ML SYRINGE IM (10:11)
[2020-06-29] MEDS: COVID-19 VACC, MRNA(PFIZER)/PF 30 MCG/0.3 ML SYRINGE IM (10:07)
== END 2020-06-08 23:59 ==
LOC: IMMUN 09:06
PROVIDERS: PCP Family Medicine; Visit Provider Family Medicine
DX: Z23 Encounter for immunization (principal)
CPT/HCPCS: 0001A; 0002A

== ENCOUNTER 2020-06-11 18:23 | Observation (INO) | payer MEDICARE, OTHER, SELFPAY ==
[2020-05-10 10:51] VITALS: BMI 30.8
[2020-06-11] VITALS (7 sets, daily range): BP systolic 120–153; BP diastolic 47–87; PULSE 80–93; RESP 16–24; TEMP 36.4–36.8; O2SAT 92–98; BMI 32.4; BMI 31.3; BMI 31.4
--- NOTE | 2020-06-11 19:06 | RAD_ITS ---
STUDY: X-RAY CHEST REASON FOR EXAM: Male, 79 years old. sob TECHNIQUE: AP portable COMPARISON: 09/29/2018 FINDINGS: The lungs are clear and expanded. There is no demonstrated pleural abnormality. Pacemaker noted on the left with electrodes in satisfactory position. Heart is enlarged. Normal mediastinum and jerrica. Normal visualized pulmonary arteries. Tortuous mildly calcified aortic arch and descending thoracic aorta. Postop change status post median sternotomy and CABG Normal visualized thoracic spine. Normal visualized ribs, clavicles, and shoulders. There is no demonstrated abnormality of the visualized soft tissue structures of the upper abdomen. No significant change since prior exam RAD/Chest 1 View (Portable) IMPRESSION: ASHD. No acute cardiopulmonary pathology Electronically Signed: Grzegorz Heller MD at 20:09 EST , Service support ,
--- NOTE | 2020-06-11 19:06 | CT_ITS ---
STUDY: CT BRAIN WITHOUT CONTRAST REASON FOR EXAM: Male, 79 years old. fall RADIATION DOSAGE (If Supplied By Facility): CTDIvol = ( 44.99 ) mGy, DLP = ( 846.73 ) mGycm TECHNIQUE: Transaxial CT imaging of the brain was performed without administration of intravenous contrast material. Individualized dose optimization techniques were used for this CT. COMPARISON: 02/05/2019 FINDINGS: Normal soft tissue structures. Normal calvarium. Calcification of cavernous carotids and vertebral arteries. Moderate atrophy and advanced periventricular white matter ischemic changes.. Normal basal ganglia and thalami. Normal brainstem. Normal cerebellum. There is no intracranial hemorrhage. There are no findings of an acute ischemic infarction. Postsurgical changes of the orbits. Normal visualized paranasal sinuses. CT/Brain/Head without Contrast IMPRESSION: Moderate atrophy and advanced periventricular white matter ischemic change. No evidence for acute intracranial bleed. Electronically Signed: Grzegorz Heller MD at 19:47 EST , Service support ,
--- NOTE | 2020-06-11 19:07 | EKG12_ITS ---
Test Reason : WEAKNESS Blood Pressure : / mmHG Vent. Rate : 085 BPM Atrial Rate : 096 BPM P-R Int : 000 ms QRS Dur : 138 ms QT Int : 436 ms P-R-T Axes : 000 -32 024 degrees QTc Int : 518 ms Atrial fibrillation Left axis deviation Right bundle branch block Abnormal ECG Confirmed by HAILEY GUERRERO, JEANINE ([id number]), legal editor ART LIRIANO ([id number]) on 06/14/2020 10:57:17 AM Referred By: Confirmed By:JEANINE HART MD
[2020-06-11] MEDS: Ipratropium/Albuterol Sulfate 3 ML AMPUL.NEB INHALATION (19:13)
--- NOTE | 2020-06-11 19:50 | ED.VISSUMM ---
- ER Visit Summary Date of Service: 06/11/20 Chief Complaint: Generalized weakness History of Present Illness: The patient is a 79 M presenting with generalized weakness and falls. Patient states that he has felt generally weak and fatigued. He fell 2 times just prior to arrival. He did not hit his head or lose consciousness. Family states he has also been short of breath over the past 2 days. This is worsened when he tries to walk around or exert himself. He denies chest pain. Denies vision or speech changes. Denies numbness or tingling. Denies headache. Denies other complaints. Physical Examination: Vitals are stable. Patient is afebrile. Alert no acute distress. HEENT exam is unremarkable. Neck is nontender Lungs are diminished, wheezing bilaterally. Heart is regular rate and rhythm. Abdomen is soft nontender nondistended. Extremities are unremarkable. Skin is warm and dry. No focal neurologic deficit. NIH 0 Remainder of exam is unremarkable. Emergency Department Course and Treatment: EKG shows A. fib rate of 85 with no acute ischemic changes. CT head shows moderate atrophy and advanced periventricular white matter ischemic change. No evidence for acute intracranial bleed. Chest xray read by myself and radiology shows ASHD. No acute cardiopulmonary pathology. Covid negative. CBC shows hemoglobin 9.3. Chemistries show glucose 287, BUN 33, creatinine 1.67. Urinalysis unremarkable. Troponin is negative. Patient was given albuterol, Atrovent aerosols with improvement of his wheezing. Due to generalized weakness, frequent falls, discussed with hospitalist for observation Disposition: Observation Impression: Generalized weakness, falls This note was generated with [employer] dictation software. It may contain incorrect words, spelling, and punctuation that were not noted in review of the chart prior to signing ED Disposition - Plan for ED Patient: Referrals: Lei Funes DO [Primary Care Provider] -
[2020-06-11 19:57] LABS: Absolute Neutrophil Count 3.8 X10^3/uL (2.0-7.7); Basophil# 0.04 X10^3/uL; Basophil% 0.8 % (0-1); Eosinophil# 0.06 X10^3/uL; Eosinophils% 1.2 % (0-5); Hemoglobin 9.3 g/dL (13.0-16.5); Lymphocyte % 10.4 % (19-41); Mean Corp Hgb Conc 29.1 g/dL (32-36); Mean Corpuscular Hgb 23.2 pg (27.0-32.0); Mean Corpuscular Volume 79.8 fL (80-94); Mean Platelet Vol. 10.8 fl (6.2-12.0); Monocyte# 0.44 X10^3/uL; Monocyte% 9.1 % (0-10); NRBC Flagged by Analyzer 0 % (0-5); Neutrophil # 3.77 X10^3/uL (2.7-7.7); Neutrophil % 78.1 % (47-70); POSITIVE DIFFERENTIAL YES; Platelet Count 221 K/mm3 (150-450); Red Blood Count 4.01 M/mm3 (4.6-6.2); White Blood Count 4.8 K/mm3 (4.4-11.0)
[2020-06-11 19:59] LABS: Differential Indicated SCAN CRITERIA MET
[2020-06-11 20:12] LABS: ALB/GLOB Ratio 1.1 RATIO (0.9-2.4); AST(SGOT) 8 U/L (15-37); Alanine Aminotransfer ALT/SGPT 19 U/L (16-61); Albumin, Serum 3.8 g/dL (3.2-5.0); Alkaline Phosphatase 95 U/L (45-117); Anion Gap 9 (5-15); BUN 33 mg/dL (7-18); BUN/Creat Ratio 19.8 RATIO (10-20); Calcium,Total 8.9 mg/dL (8.5-10.1); Chloride 106 mmol/L (98-107); Creatinine, Serum 1.67 mg/dL (0.70-1.30); EST Glomerular Filtration Rate 42 mL/min (>60); Est Glom Filt Rate - Afr Amer 51 mL/min (>60); Estimated Creatinine Clearance 34.08 ml/min; Globulin 3.6 g/dL (2.2-4.2); Glucose 287 mg/dL (74-106); Potassium 4.4 mmol/L (3.5-5.1); Protein, Total 7.4 g/dL (6.4-8.2); Sodium Level 138 mmol/L (136-145)
[2020-06-11 20:19] LABS: BNP,B-Type NATRIURETIC PEPTIDE 107.1 pg/mL (0-100)
[2020-06-11 20:21] LABS: Differential Comment SCANNED
[2020-06-11 20:22] LABS: Hypochromasia RARE; Platelet Morphology LARGE
[2020-06-11 20:23] LABS: Anisocytosis RARE
[2020-06-11 20:56] LABS: Bacteria 0 SEEN /hpf (None Seen); Mucous, Urine 0 SEEN /hpf (<or=2+); Red Blood Cells-Urine 0 SEEN /hpf (0-5); Squamous Epithelial Cells - UA 0 SEEN /hpf (0-5); White Blood Cells 0 SEEN /hpf (0-5)
[2020-06-11 20:58] LABS: Color, Urine Yellow (Yellow); Glucose, Dipstick 100 mg/dl (Normal); Ketone-Dipstick Negative (Negative); Leukocyte Esterase-Dipstick Negative /ul (Negative); Nitrite-Dipstick Negative (Negative); Occult Blood-Urine Negative /ul (Negative); Protein-Dipstick 30 mg/dl (Negative); Urine Bilirubin Dipstick Negative (Negative); Urine Clarity Clear (Clear); Urine Urobilinogen Normal (Normal)
--- NOTE | 2020-06-11 22:01 | HP.PCM_ITS ---
Problem List (1) Generalized weakness Status: Acute (2) Obstructive sleep apnea Status: Chronic (3) Lung nodule Status: Chronic (4) Nonrheumatic aortic (valve) stenosis Status: Chronic (5) History of aortic valve replacement with bioprosthetic valve Status: Resolved Comment: Aortic Valve Replacement w/ 23-mm Jay-Aragon pericardial valve 01/24/16 (6) Nonrheumatic mitral valve regurgitation Status: Chronic (7) H/O mitral valve repair Status: Resolved Comment: mitral valve repair and MAZE procedure 01/24/[address] Tolliver @ [facility] (8) Non-rheumatic tricuspid valve insufficiency Status: Chronic (9) Secondary pulmonary arterial hypertension Status: Chronic (10) Chronic diastolic (congestive) heart failure Status: Chronic (11) Presence of permanent cardiac pacemaker Status: Resolved Comment: Permanent pacemaker placement 02/02/16 (12) Sick sinus syndrome Status: Chronic (13) Paroxysmal atrial fibrillation Status: Chronic Comment: Maze procedure 01/2016 (14) Essential (primary) hypertension Status: Chronic (15) Hyperlipidemia Status: Chronic Qualifiers: (16) Iron deficiency anemia Status: Chronic Qualifiers: (17) Carotid stenosis, bilateral Status: Chronic Comment: mild, 20-39% History of Present Illness Date of Admission: 06/11/20 Chief Complaint: Multiple falls The patient is a 79 year old M with a significant history of heart failure preserved ejection fraction; atrial fibrillation status post maze procedure; severe aortic valve disease status post aortic valve replacement; mitral valve disease status post mitral valve repair, 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 Reportedly patient fell and then when he got up he fell again. After the fall he felt weak. His report that in the last 2 days patient has been short of breath. At emergency department patient was wheezing and he was giving breathing treatment. History was taken from as patient is very hard of hearing. Past Medical History Past Medical History (Chronic Problems): Chronic Problems (Last Reviewed 06/12/20 @ 00:[address] Jayjay Clay MD) Obstructive sleep apnea (Chronic) Lung nodule (Chronic) Nonrheumatic aortic (valve) stenosis (Chronic) Nonrheumatic mitral valve regurgitation (Chronic) Non-rheumatic tricuspid valve insufficiency (Chronic) Secondary pulmonary arterial hypertension (Chronic) Chronic diastolic (congestive) heart failure (Chronic) Sick sinus syndrome (Chronic) Paroxysmal atrial fibrillation (Chronic) Maze procedure 01/2016 Essential (primary) hypertension (Chronic) Hyperlipidemia (Chronic) Iron deficiency anemia (Chronic) Carotid stenosis, bilateral (Chronic) mild, 20-39% Medical History: Medical History (Last Reviewed 06/12/20 @ 00:[address] Jayjay Clay MD) Obstructive sleep apnea (Chronic) G47.33 Lung nodule (Chronic) R91.1 Nonrheumatic aortic (valve) stenosis (Chronic) I35.0 Nonrheumatic mitral valve regurgitation (Chronic) I34.0 Non-rheumatic tricuspid valve insufficiency (Chronic) I36.1 Secondary pulmonary arterial hypertension (Chronic) I27.21 Chronic diastolic (congestive) heart failure (Chronic) I50.32 Sick sinus syndrome (Chronic) I49.5 Paroxysmal atrial fibrillation (Chronic) I48.0 Maze procedure 01/2016 Essential (primary) hypertension (Chronic) I10 Hyperlipidemia (Chronic) E78.5 Iron deficiency anemia (Chronic) D50.9 Carotid stenosis, bilateral (Chronic) I65.23 mild, 20-39% Anemia D64.9 Diastolic dysfunction I51.89 Duodenal ulcer K26.9 Epistaxis R04.0 Hypothyroidism E03.9 Nonobstructive atherosclerosis of coronary artery I25.10 Obesity (BMI 30.0-34.9) E66.9 Osteoporosis M81.0 Pancytopenia D61.818 Type 2 diabetes mellitus E11.9 Type 2 diabetes mellitus E11.9 Acute blood loss anemia D62 Fracture of right pubis S32.501A Pneumonia (Resolved) J18.9 Rib fracture S22.39XA Sepsis A41.9 Severe sepsis (Resolved) A41.9, R65.20 Shortness of breath (Resolved) R06.02 Upper GI bleed K92.2 Abnormal electrocardiogram (Inactive) R94.31 Nonrheumatic aortic (valve) insufficiency I35.1 Allergies No Known Allergies Allergy (Verified 06/11/20 18:24) Home Medications: Ambulatory Orders Medication Instructions Recorded pantoprazole 40 mg tablet,delayed 40 mg PO BID tab 03/13/17 release metformin 500 mg tablet 1,000 mg PO BIDCM tab 01/22/18 glimepiride 4 mg tablet 4 mg PO BID tab 02/10/20 insulin NPH isoph U-100 human 100 25 units SC BREAKFAST 02/10/20 unit/mL subcutaneous suspension lisinopril 2.5 mg tablet 2.5 mg PO DAILY #90 tab 02/28/20 furosemide 40 mg tablet 40 mg PO DAILY #90 tab 03/20/20 albuterol sulfate 90 mcg/actuation 2 puff INHALATION Q4H PRN #18 g 05/10/20 aerosol inhaler diltiazem HCl 240 mg capsule,24 240 mg PO DAILY #30 cap 05/31/20 hr,extended release Surgical History: Surgical History (Last Reviewed 06/12/20 @ 00:[address] Jayjay Clay MD) History of aortic valve replacement with bioprosthetic valve (Resolved) Onset Date: 01/24/16 Z95.3 Aortic Valve Replacement w/ 23-mm Jay-Aragon pericardial valve 01/24/16 H/O mitral valve repair (Resolved) Onset Date: 01/24/16 Z98.890 mitral valve repair and MAZE procedure 01/24/[address] Tolliver @ [facility] Presence of permanent cardiac pacemaker (Resolved) Onset Date: 02/02/16 Z95.0 Permanent pacemaker placement 02/02/16 H/O left knee surgery Z98.890 History of cataract surgery Onset Date: 02/2020 Z98.49 History of esophagogastroduodenoscopy (EGD) Onset Date: 11/2018 Z98.890 History of left heart catheterization Onset Date: 11/20/15 Z98.890 History of left knee surgery Onset Date: 1965 Z98.890 History of maze procedure Onset Date: 01/24/16 Z98.890 mitral valve repair and MAZE procedure 01/24/[address] 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 Psychiatric History: No pertinent psych hx Smoking Status: Former smoker Tobacco Use: Non-smoker - *Family History Maternal Family History: Family History (Last Reviewed 06/12/20 @ 00:[address] Jayjay Clay MD) Mother Myocardial infarction CAD (coronary artery disease) Hypertension Sister Hypertension CVA (cerebral vascular accident) Son Diabetes Mother Myocardial infarction CAD (coronary artery disease) Hypertension Brother Myocardial infarction CAD (coronary artery disease) Cancer Sister Myocardial infarction CAD (coronary artery disease) CVA (cerebral vascular accident) Hypertension Son Diabetes History Items: Heart Disease, Hypertension Paternal Family History: Family History (Last Reviewed 06/12/20 @ 00:[address] Jayjay Clay MD) Mother Myocardial infarction CAD (coronary artery disease) Hypertension Sister Hypertension CVA (cerebral vascular accident) Son Diabetes Mother Myocardial infarction CAD (coronary artery disease) Hypertension Brother Myocardial infarction CAD (coronary artery disease) Cancer Sister Myocardial infarction CAD (coronary artery disease) CVA (cerebral vascular accident) Hypertension Son Diabetes History Items: Heart Disease, Hypertension Sibling Family History: Family History (Last Reviewed 06/12/20 @ 00:[address] Jayjay Clay MD) Mother Myocardial infarction CAD (coronary artery disease) Hypertension Sister Hypertension CVA (cerebral vascular accident) Son Diabetes Mother Myocardial infarction CAD (coronary artery disease) Hypertension Brother Myocardial infarction CAD (coronary artery disease) Cancer Sister Myocardial infarction CAD (coronary artery disease) CVA (cerebral vascular accident) Hypertension Son Diabetes History Items: Hypertension, Stroke Offspring Family History: Family History (Last Reviewed 06/12/20 @ 00:[address] Jayjay Clay MD) Mother Myocardial infarction CAD (coronary artery disease) Hypertension Sister Hypertension CVA (cerebral vascular accident) Son Diabetes Mother Myocardial infarction CAD (coronary artery disease) Hypertension Brother Myocardial infarction CAD (coronary artery disease) Cancer Sister Myocardial infarction CAD (coronary artery disease) CVA (cerebral vascular accident) Hypertension Son Diabetes History Items: Diabetes Review of Systems Constitutional: Denies: Chills, Fever, Weight Change HEENT: Denies: Head Aches, Sinus Congestion, Sinus Drainage Cardiovascular: Denies: Chest Pain, Palpitations Respiratory: Reports: Shortness of Breath, Wheezing. Denies: Cough Gastrointestinal: Denies: Abdominal Pain, Nausea, Vomiting Genitourinary: Denies: Dysuria Musculoskeletal: Denies: Joint Pain, Joint Tenderness Skin: Denies: Rash, Wounds Neurological: Denies: Numbness, Tingling, Focal weakness Psychiatric: Denies: Anxiety, Depression, Homicidal Ideations, Suicidal Ideations Hematologic/ Lymphatic: Denies: Easy Bruising, Easy Bleeding VTE Information - Inpt Only VTE Present on Admission: No VTE Mechan Device Prophylaxis: None VTE Pharm Prophylaxis ordered?: Yes Patient Problems: Active and Suspected Problems (Last Reviewed 06/12/20 @ 00:[address] Jayjay Clay MD) Generalized weakness (Acute) - Physical Exam Vitals/I&O's: Vital Signs Temp Pulse Resp BP Pulse Ox 97.8 F 84 16 153/75 H 97 06/11/20 20:59 06/11/20 20:59 06/11/20 20:59 06/11/20 20:59 06/11/20 20:59 Oxygen Delivery Method Room Air Weight: 93.9 kg Body Mass Index (BMI) 32.4 Finger Stick Blood Glucose 357 General: Alert, Oriented x3, Cooperative HEENT: Atraumatic, PERRLA, EOMI, Normocephalic Neck: Supple, No JVD, Negative Carotid Bruits Lungs: Rales - Mild, Wheezes - Mild Cardiovascular: Regular rate, Normal S1, Normal S2 Abdomen: Bowel Sounds Present, Soft, Non Tender Extremities: No edema, Capillary Refill Less than 3 Seconds Skin: No rashes, No breakdown Musculoskeletal: No Tenderness to Palpation of Joints or Extremities Neurological: Cranial nerves II-XII grossly intact Psych/Mental Status: Normal Affect, Appropriate Microbiology Past 72 Hours 06/11/20 19:20 Mucosa - Nasopharyngeal SARS-CoV-2 Antigen (Rapid) - Final Laboratory Results 06/11/20 19:25: WBC 4.8, RBC 4.01 L, Hgb 9.3 L, Hct 32.0 L, MCV 79.8 L, MCH 23.2 L, MCHC 29.1 L, RDW Std Deviation 46.0 H, RDW Coeff of Heidi 16.0 H, Plt Count 221, MPV 10.8, Immature Gran % (Auto) 0.400, Neut % (Auto) 78.1 H, Lymph % (Auto) 10.4 L, [place] % (Auto) 9.1, Eos % (Auto) 1.2, Baso % (Auto) 0.8, Absolute Neuts (auto) 3.8, Absolute Lymphs (auto) 0.50 L, Nucleated RBC % 0, Differential Comment SCANNED, Plt Morphology Comment LARGE, Hypochromasia RARE, Anisocytosis RARE 06/11/20 19:25: Sodium 138, Potassium 4.4, Chloride 106, Carbon Dioxide 23.0, Anion Gap 9, BUN 33 H, Creatinine 1.67 H, Estim Creat Clear Calc 34.08, Est GFR (MDRD) Af Amer 51 L, Est GFR (MDRD) Non-Af 42 L, BUN/Creatinine Ratio 19.8, Glucose 287 H, Calcium 8.9, Total Bilirubin 0.40, AST 8 L, ALT 19, Alkaline Phosphatase 95, Troponin I < 0.015, Total Protein 7.4, Albumin 3.8, Globulin 3.6, Albumin/Globulin Ratio 1.1 06/11/20 19:25: B-Natriuretic Peptide 107.1 H 06/11/20 20:46: Urine Color Yellow, Urine Clarity Clear, Urine pH 5.0, Ur Specific [place] 1.020, Urine Protein 30 H, Urine Glucose (UA) 100 H, Urine Ketones Negative, Urine Occult Blood Negative, Urine Nitrite Negative, Urine Bilirubin Negative, Urine Urobilinogen Normal, Ur Leukocyte Esterase Negative, Urine RBC 0 SEEN, Urine WBC 0 SEEN, Ur Squamous Epith Cells 0 SEEN, Urine Bacteria 0 SEEN, Urine Mucus 0 SEEN Assessment/Plan All Active Problems (Last Reviewed 06/12/20 @ 00:[address] Jayjay Clay MD) Generalized weakness (Acute) History of aortic valve replacement with bioprosthetic valve (Resolved 01/24/16) H/O mitral valve repair (Resolved 01/24/16) Presence of permanent cardiac pacemaker (Resolved 02/02/16) Aortic stenosis, severe (Resolved) Hypokalemia (Resolved) Pneumonia (Resolved) Severe sepsis (Resolved) Shortness of breath (Resolved) Supratherapeutic INR (Resolved) The patient is a 79 year old M with a significant history of heart failure preserved ejection fraction; atrial fibrillation status post maze procedure; severe aortic valve disease status post aortic valve replacement; mitral valve disease status post mitral valve repair, 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 Multiple falls falls and generalized weakness PT and OT to work with patient for strengthening balance training Check vitamin B12; TSH; and vitamin D ordered. Shortness of breath and wheezes Patient with mild rales at lung base. Wheeze on examination Given breathing treatment at the emergency department. DuoNeb every 4 hours while awake and as needed albuterol ordered Rapid Covid was negative. Will check influenza. Radiologist impression of chest x-ray: ASHD. No acute cardiopulmonary pathology. Actual image of chest x-ray was independently interpreted. Patient with cardiomegaly and diffuse pulmonary opacities. Review of previous chest x- ray shows diffuse pulmonary opacities. New chest x-ray appears to show more increase in cardiac silhouette heart. Will check BNP. Review of records. Echocardiogram on 07/15/2018: Ejection fraction was 60%. Stage III diastolic dysfunction. Pacemaker was interrogated 04/20/2020. Lasix continued Clinical monitoring. Diabetes mellitus Patient with hyperglycemia on presentation NPH continued Glimepiride continued Metformin held Accu-Chek [facility] with correction scale insulin ordered. Atrial fibrillation that is post maze procedure From review of records previously on beta-blockers but was changed to Cardizem secondary to depression. Cardizem continued. Not on anticoagulation. Hypertension Blood pressure is within goal for age Lisinopril; Cardizem and Lasix continued. Trend blood pressure and adjust blood pressure medications. Obstructive sleep apnea Home CPAP continued GERD Protonix continued DVT prophylaxis Subcutaneous Lovenox. OBSV E&M: [id number] Initial observation care L3
--- NOTE | 2020-06-11 22:41 | NURSING ---
Pt states his came to the ER with him and reviewed his medications with the ER per his list. took pt's wallet which contains the list and he does not know when he last took meds.
--- NOTE | 2020-06-11 23:11 | NURSING ---
Respiratory called for rapid flu.
[2020-06-11] MEDS: Insulin Lispro 100 UNIT/ML INSULN.PEN SC (23:23)
[2020-06-11] MEDS: Glimepiride 4 MG Tablet PO (23:24)
[2020-06-11] MEDS: Pantoprazole Sodium 40 MG Tablet PO (23:24)
[2020-06-11 23:36] LABS: Bedside Glucose 290 mg/dL (70-110)
--- NOTE | 2020-06-11 23:40 | CPS ---
pt wears CPAP at home HS but refused to wear hospital CPAP
[2020-06-11] MEDS: Albuterol 2.5 MG/3 ML VIAL.NEB. INHALATION (23:41)
--- NOTE | 2020-06-11 23:56 | NURSING ---
Lab called and stated that we needed to complete the intervention for nasal swab. It was just collected by Gracy from respiratory so intervention completed. Lab states they already have the specimen.
[2020-06-12 05:00] VITALS: BP 132/65; PULSE 100; RESP 18; TEMP 37; O2SAT 93
[2020-06-12 05:30] LABS: Basophil# 0.03 X10^3/uL; Basophil% 0.7 % (0-1); Eosinophil# 0.02 X10^3/uL; Eosinophils% 0.5 % (0-5); Hematocrit 28.4 % (40-54); Hemoglobin 8.3 g/dL (13.0-16.5); Lymphocyte % 12.2 % (19-41); Mean Corp Hgb Conc 29.2 g/dL (32-36); Mean Corpuscular Volume 78.7 fL (80-94); Mean Platelet Vol. 10.6 fl (6.2-12.0); Monocyte# 0.52 X10^3/uL; Monocyte% 12.7 % (0-10); NRBC Flagged by Analyzer 0 % (0-5); Neutrophil # 3.02 X10^3/uL (2.7-7.7); Neutrophil % 73.4 % (47-70); POSITIVE DIFFERENTIAL YES; Platelet Count 174 K/mm3 (150-450); RBC Distribution Width CV 16.1 % (11.6-14.6); RBC Distribution Width SD 45.7 fl (35.1-43.9); Red Blood Count 3.61 M/mm3 (4.6-6.2); White Blood Count 4.1 K/mm3 (4.4-11.0)
[2020-06-12 05:32] LABS: Differential Indicated SCAN CRITERIA MET
[2020-06-12 05:46] LABS: BNP,B-Type NATRIURETIC PEPTIDE 153.8 pg/mL (0-100)
[2020-06-12 05:57] LABS: Anion Gap 8 (5-15); BUN 31 mg/dL (7-18); BUN/Creat Ratio 20.4 RATIO (10-20); Calcium,Total 8.7 mg/dL (8.5-10.1); Chloride 106 mmol/L (98-107); Creatinine, Serum 1.52 mg/dL (0.70-1.30); EST Glomerular Filtration Rate 47 mL/min (>60); Est Glom Filt Rate - Afr Amer 57 mL/min (>60); Estimated Creatinine Clearance 37.45 ml/min; Glucose 280 mg/dL (74-106); Potassium 4.5 mmol/L (3.5-5.1); Sodium Level 138 mmol/L (136-145); Thyroid Stim Hormone (TSH) 4.65 uIU/mL (0.358-3.74)
[2020-06-12] MEDS: Insulin Lispro 100 UNIT/ML INSULN.PEN SC ×2 (06:42→12:03)
[2020-06-12 06:50] LABS: Bedside Glucose 283 mg/dL (70-110)
[2020-06-12 06:58] VITALS: PULSE 88; RESP 20; O2SAT 90
[2020-06-12] MEDS: Ipratropium/Albuterol Sulfate 3 ML AMPUL.NEB INHALATION ×2 (06:58→10:40)
[2020-06-12] MEDS: Glimepiride 4 MG Tablet PO (08:43)
[2020-06-12] MEDS: Insulin NPH Human 100 UNITS/ML PEN 25 UNITS SC (08:43)
[2020-06-12 08:50] LABS: Bedside Glucose 202 mg/dL (70-110)
[2020-06-12 09:10] LABS: Vitamin B12 277 pg/mL (211-911); Vitamin D,25 Hydroxy 21.9 ng/mL
--- NOTE | 2020-06-12 09:59 | CASEMGMT ---
LW/Healthcare POA forms in summary tab of Jessi dove is listed as Healthcare POA. ZO Riley
[2020-06-12 10:01] VITALS: BP 112/54; PULSE 102; RESP 18; TEMP 36.9; O2SAT 98
[2020-06-12] MEDS: dilTIAZem CD 240 MG Capsule PO (10:03)
[2020-06-12] MEDS: Furosemide 40 MG Tablet PO (10:03)
[2020-06-12] MEDS: Lisinopril 2.5 MG Tablet PO (10:03)
[2020-06-12] MEDS: Enoxaparin 40 MG/0.4 ML Syringe SC (10:03)
[2020-06-12] MEDS: Pantoprazole Sodium 40 MG Tablet PO (10:03)
--- NOTE | 2020-06-12 10:30 | CASEMGMT ---
RN MARISELA Face to Face with patient for initial transition planning/care coordination assessment. RN CM introduced self and role at [facility]. Patient sitting in chair, alert and oriented, at bedside. Patient willing to participate in assessment and is able to answer all questions appropriately. Care providers, pharmacy, and demographics verified. Patient wishes to discharge home, denies need for home health at this time. Patient states he has no further needs or concerns at this time. CM to follow for discharge planning needs that may arise. PCP: [facility] Specialists: Anitra, washer operator; Ivan jigsaw operator [facility]acy[facility] Insurance: [employer] mutual Prescription Benefit: yes Living Will/HPOA: yes, Jessi Guajardo LNOK: Living Arrangements: Patient lives with in a single story home with 2 steps and grab bar to enter the home. Patient is independent at home. Transportation: /self DME/HHC: Patient has shower chair, raised toilet, cane, walker, grab bars, and cpap at home. Patient has been to [facility] previously. Patient has done outpatient therapy previously. Disposition Plan: Patient to discharge home with family support and follow-up plans in place. Will monitor for need for HHC vs Outpatient therapy Sarah SAPP, RN, CM
[2020-06-12 10:40] VITALS: PULSE 82; RESP 16
--- NOTE | 2020-06-12 11:47 | DCINST_ITS ---
- Discharge Diagnoses Current Active Problems: Current Active and Chronic Problems (Last Reviewed 06/12/20 @ 00:[address] Jayjay Clay MD) Generalized weakness (Acute) Obstructive sleep apnea (Chronic) Lung nodule (Chronic) Nonrheumatic aortic (valve) stenosis (Chronic) Nonrheumatic mitral valve regurgitation (Chronic) Non-rheumatic tricuspid valve insufficiency (Chronic) Secondary pulmonary arterial hypertension (Chronic) Chronic diastolic (congestive) heart failure (Chronic) Sick sinus syndrome (Chronic) Paroxysmal atrial fibrillation (Chronic) Maze procedure 01/2016 Essential (primary) hypertension (Chronic) Hyperlipidemia (Chronic) Iron deficiency anemia (Chronic) Carotid stenosis, bilateral (Chronic) mild, 20-39% You will use the following diet at home:: Cardiac Your food should be the consistency of: Regular Your liquids should be the consistency of: Regular/Thin Discharge Activity: Return to Normal Activity Weight Bearing Status: Weight bearing as tolerated Call your doctor if you observe: Fever of 101 or Higher, - - weakness, frequent falls Instructions: When a Patient Falls, Preventing Falls: Are You At Risk of Falling?, Preventing Falls: Making Changes in Your Living Space Additional Instructions: to have outpatient PT/OT Allergies/Adverse Reactions: Allergies No Known Allergies Allergy (Verified 06/11/20 18:24) Medications to take at Discharge pantoprazole 40 mg tablet,delayed release 40 mg PO BID tab 03/13/17 metformin 500 mg tablet 1,000 mg PO BIDCM tab 01/22/18 glimepiride 4 mg tablet 4 mg PO BID tab 02/10/20 insulin NPH isoph U-100 human 100 unit/mL subcutaneous suspension 25 units SC BREAKFAST 02/10/20 lisinopril 2.5 mg tablet 2.5 mg PO DAILY #90 tab 02/28/20 furosemide 40 mg tablet 40 mg PO DAILY #90 tab 03/20/20 albuterol sulfate 90 mcg/actuation aerosol inhaler 2 puff INHALATION Q4H PRN #18 g 05/10/20 diltiazem HCl 240 mg capsule,24 hr,extended release 240 mg PO DAILY #30 cap 05/31/20 Primary Care Physician: Lei Funes DO [Primary Care Provider] - Please follow up with your Primary Care Physician in: 1-2 weeks Test Results: Test results from this visit will be discussed in further detail at your follow- up appointment, if applicable. Proposed Discharge Date: 06/12/20
--- NOTE | 2020-06-12 11:49 | PCM.DC.SUM ---
Discharge Date and Diagnosis - Problem List Patient Problems: Active and Suspected Problems (Last Reviewed 06/12/20 @ 00:[address] Jayjay Clay MD) Generalized weakness (Acute) Date of Admission: 06/11/20 Date of Discharge: 06/12/20 - Primary Discharge Diagnosis Acute Problems: Active Problems (Last Reviewed 06/12/20 @ 00:[address] Jayjay Clay MD) Generalized weakness (Acute) debility - Secondary Discharge Diagnosis Chronic Problems: Chronic Problems (Last Reviewed 06/12/20 @ 00:[address] 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 No evidence for acute intracranial bleed. Electronically Signed: Grzegorz Heller MD at 19:47 EST , Service support , Chest X-Ray 06/11/20 19:06 IMPRESSION: ASHD. No acute cardiopulmonary pathology Electronically Signed: Grzegorz Heller MD at 20:09 EST , Service support , Operations: None Procedures: None Summary of Care Provided: The patient is a 79 year old M with a past medical history as outlined was admitted through the ED on 06/12/2019 with a complaint of multiple falls. Patient said his legs just gave way and he felt weak and he fell. He also has some mild shortness of breath and in the ED he was found to be wheezing and so had breathing treatments. He was admitted and managed for debility due to mechanical falls. BNP was 107. CT Of the brain showed no acute intracranial process and CXR showed no acute cardiopulmonary pathology. PT OT was consulted. Patient went for physical therapy and was able to ambulate on his own. He remained stable and was discharged home on 06/12/2020 with a prescription for outpatient physical therapy. He had follow-up with his PCP in 1 to 2 weeks. Patient seen and examined prior to discharge. He had no complaints. Review of systems otherwise negative. Labs and vitals reviewed. Medication reviewed and reconciled. O/E: Vital Signs Temp Pulse Resp BP Pulse Ox 98.2 F 110 H 18 135/71 H 97 06/12/20 13:32 06/12/20 13:32 06/12/20 13:32 06/12/20 13:32 06/12/20 13:32 [] General: Alert, Oriented x3, Cooperative HEENT: Atraumatic, PERRLA, EOMI, Normocephalic Neck: Supple, No JVD, Negative Carotid Bruits Lungs: Rales - Mild, Wheezes - Mild Cardiovascular: Regular rate, Normal S1, Normal S2 Abdomen: Bowel Sounds Present, Soft, Non Tender Extremities: No edema, Capillary Refill Less than 3 Seconds Skin: No rashes, No breakdown Musculoskeletal: No Tenderness to Palpation of Joints or Extremities Neurological: Cranial nerves II-XII grossly intact Psych/Mental Status: Normal Affect, Appropriate Plan is for discharge home today with outpatient PT/OT. Patient Problems: Active and Suspected Problems (Last Reviewed 06/12/20 @ 00:[address] Jayjay Clay MD) Generalized weakness (Acute) - Physical Exam Vitals/I&O's: Vital Signs Temp Pulse Resp BP Pulse Ox 98.4 F 82 16 112/54 L 98 06/12/20 10:01 06/12/20 10:40 06/12/20 10:40 06/12/20 10:01 06/12/20 10:01 Oxygen Delivery Method Room Air Weight: 200 lb 2.876 oz Body Mass Index (BMI) 31.3 Finger Stick Blood Glucose 357 Microbiology Past 72 Hours 06/11/20 23:35 Mucosa - Nose Influenza Types A,B Direct FA (KARLA) - Final 06/11/20 19:20 Mucosa - Nasopharyngeal SARS-CoV-2 Antigen (Rapid) - Final Laboratory Results 06/11/20 19:25: WBC 4.8, RBC 4.01 L, Hgb 9.3 L, Hct 32.0 L, MCV 79.8 L, MCH 23.2 L, MCHC 29.1 L, RDW Std Deviation 46.0 H, RDW Coeff of Heidi 16.0 H, Plt Count 221, MPV 10.8, Immature Gran % (Auto) 0.400, Neut % (Auto) 78.1 H, Lymph % (Auto) 10.4 L, [place] % (Auto) 9.1, Eos % (Auto) 1.2, Baso % (Auto) 0.8, Absolute Neuts (auto) 3.8, Absolute Lymphs (auto) 0.50 L, Nucleated RBC % 0, Differential Comment SCANNED, Plt Morphology Comment LARGE, Hypochromasia RARE, Anisocytosis RARE 06/11/20 19:25: Sodium 138, Potassium 4.4, Chloride 106, Carbon Dioxide 23.0, Anion Gap 9, BUN 33 H, Creatinine 1.67 H, Estim Creat Clear Calc 34.08, Est GFR (MDRD) Af Amer 51 L, Est GFR (MDRD) Non-Af 42 L, BUN/Creatinine Ratio 19.8, Glucose 287 H, Calcium 8.9, Total Bilirubin 0.40, AST 8 L, ALT 19, Alkaline Phosphatase 95, Troponin I < 0.015, Total Protein 7.4, Albumin 3.8, Globulin 3.6, Albumin/Globulin Ratio 1.1 06/11/20 19:25: B-Natriuretic Peptide 107.1 H 06/11/20 20:46: Urine Color Yellow, Urine Clarity Clear, Urine pH 5.0, Ur Specific [place] 1.020, Urine Protein 30 H, Urine Glucose (UA) 100 H, Urine Ketones Negative, Urine Occult Blood Negative, Urine Nitrite Negative, Urine Bilirubin Negative, Urine Urobilinogen Normal, Ur Leukocyte Esterase Negative, Urine RBC 0 SEEN, Urine WBC 0 SEEN, Ur Squamous Epith Cells 0 SEEN, Urine Bacteria 0 SEEN, Urine Mucus 0 SEEN 06/11/20 23:22: POC Glucose 290 H 06/12/20 05:12: WBC 4.1 L, RBC 3.61 L, Hgb 8.3 L, Hct 28.4 L, MCV 78.7 L, MCH 23.0 L, MCHC 29.2 L, RDW Std Deviation 45.7 H, RDW Coeff of Heidi 16.1 H, Plt Count 174, MPV 10.6, Immature Gran % (Auto) 0.500, Neut % (Auto) 73.4 H, Lymph % (Auto) 12.2 L, [place] % (Auto) 12.7 H, Eos % (Auto) 0.5, Baso % (Auto) 0.7, Absolute Neuts (auto) 3.0, Absolute Lymphs (auto) 0.50 L, Nucleated RBC % 0, Diff Path Review August06/12/20 05:12: Sodium 138, Potassium 4.5, Chloride 106, Carbon Dioxide 24.0, Anion Gap 8, BUN 31 H, Creatinine 1.52 H, Estim Creat Clear Calc 37.45, Est GFR (MDRD) Af Amer 57 L, Est GFR (MDRD) Non-Af 47 L, BUN/Creatinine Ratio 20.4 H, Glucose 280 H, Calcium 8.7, TSH 4.65 H 06/12/20 05:12: Vitamin B12 277, Vitamin D 25-Hydroxy 21.9, Cortisol 13.40 06/12/20 05:12: B-Natriuretic Peptide 153.8 H 06/12/20 06:40: POC Glucose 283 H 06/12/20 08:41: POC Glucose 202 H Diagnostic Data Brain CT 06/11/20 19:06 IMPRESSION: Moderate atrophy and advanced periventricular white matter ischemic change. No evidence for acute intracranial bleed. Electronically Signed: Grzegorz Heller MD at 19:47 EST , Service support , Chest X-Ray 06/11/20 19:06 IMPRESSION: ASHD. No acute cardiopulmonary pathology Electronically Signed: Grzegorz Heller MD at 20:09 EST , Service support , Current Medications Acetaminophen (Acetaminophen 325 Mg Tablet) 650 mg PO Q6H PRN PRN PRN Reason: Pain Score 1-10/Temp > 100.7 F Albuterol Sulfate (Albuterol 2.5 Mg/3 Ml Vial.Neb.) 2.5 mg INHALATION Q2H PRN PRN PRN Reason: SOB/Wheezing Last Admin: 06/11/20 23:41 Dose: 2.5 mg Documented by: Albuterol/Ipratropium (Ipratropium/Albuterol Sulfate 3 Ml Ampul.Neb) 3 ml INHALATION Q4HWA.RT [facility] Last Admin: 06/12/20 10:40 Dose: 3 ml Documented by: Dextrose (Dextrose 50%-Water 25 Gm/50 Ml Disp.Syrin) 0 gm IV X1 PRN; Protocol PRN Reason: Hypoglycemia Diltiazem HCl (Diltiazem Cd 240 Mg Capsule) 240 mg PO DAILY [facility] Last Admin: 06/12/20 10:03 Dose: 240 mg Documented by: Enoxaparin Sodium (Enoxaparin 40 Mg/0.4 Ml Syringe) 40 mg SC DAILY [facility] Last Admin: 06/12/20 10:03 Dose: 40 mg Documented by: Furosemide (Furosemide 40 Mg Tablet) 40 mg PO DAILY [facility] Last Admin: 06/12/20 10:03 Dose: 40 mg Documented by: Glimepiride (Glimepiride 4 Mg Tablet) 4 mg PO BIDCM [facility] Last Admin: 06/12/20 08:43 Dose: 4 mg Documented by: Glucagon (Glucagon 1 Mg/Ml Syringe) 1 mg IM .X1 PRN PRN Reason: Hypoglycemia Insulin Human Lispro (Insulin Lispro 100 Unit/Ml Insuln.Pen) 0 unit SC ACHS [facility]; Protocol Last Admin: 06/12/20 06:42 Dose: 6 units Documented by: Insulin Human NPH (Insulin Nph Human 100 Units/Ml Pen) 25 units SC 0700 [facility] Last Admin: 06/12/20 08:43 Dose: 25 u Documented by: Lisinopril (Lisinopril 2.5 Mg Tablet) 2.5 mg PO DAILY [facility] Last Admin: 06/12/20 10:03 Dose: 2.5 mg Documented by: Melatonin (Melatonin 3 Mg Tablet) 3 mg PO QHS PRN PRN PRN Reason: INSOMNIA Ondansetron HCl (Ondansetron 4 Mg/2 Ml Vial) 4 mg IV Q8H PRN PRN PRN Reason: NAUSEA/VOMITING Pantoprazole Sodium (Pantoprazole Sodium 40 Mg Tablet) 40 mg PO BID [facility] Last Admin: 06/12/20 10:03 Dose: 40 mg Documented by: Sodium Chloride (0.9% Saline Lock 10 Ml Syringe) 10 - 40 ml IV UD PRN PRN Reason: SALINE FLUSH Discharge Diet: Low fat/ Low Cholesterol Discharge Activity: Return to Normal Activity Weight Bearing Status: Weight bearing as tolerated Call your doctor if you observe: Fever of 101 or Higher, - - weakness, frequent falls Home Medications: Medications to take at Discharge pantoprazole 40 mg tablet,delayed release 40 mg PO BID tab 03/13/17 metformin 500 mg tablet 1,000 mg PO BIDCM tab 01/22/18 glimepiride 4 mg tablet 4 mg PO BID tab 02/10/20 insulin NPH isoph U-100 human 100 unit/mL subcutaneous suspension 25 units SC BREAKFAST 02/10/20 lisinopril 2.5 mg tablet 2.5 mg PO DAILY #90 tab 02/28/20 furosemide 40 mg tablet 40 mg PO DAILY #90 tab 03/20/20 albuterol sulfate 90 mcg/actuation aerosol inhaler 2 puff INHALATION Q4H PRN #18 g 05/10/20 diltiazem HCl 240 mg capsule,24 hr,extended release 240 mg PO DAILY #30 cap 05/31/20 Primary Care Physician: Lei Funes DO [Primary Care Provider] - Please follow up with your Primary Care Physician in: 1-2 weeks Patient Instructions: When a Patient Falls, Preventing Falls: Are You At Risk of Falling?, Preventing Falls: Making Changes in Your Living Space Disposition: Home Minutes spent on discharge:: 35 Patient Condition:: Stable Medical Necessity - Tobacco Use Smoking Status: Former smoker Tobacco Use: Cigarettes Meaningful Use Info Meaningful Use Diagnoses (Choose all that apply): None applicable OBSV E&M: 30728 Observation care discharge
--- NOTE | 2020-06-12 12:00 | CASEMGMT ---
WILLEM ANTONIO in to discuss HHC vs outpatient therapy after reviewing therapy notes. and patient agreeable to outpatient therapy. Script for outpatient therapy received. WILLEM ANTONIO inquired if they would like CM to schedule appt. prefers to take script to outpatient therapy center of their choice and schedule appt. WILLEM ANTONIO gave patient script and placed in discharge folder. Patient and had no further questions or concerns at this time.
[2020-06-12 12:10] LABS: Bedside Glucose 245 mg/dL (70-110)
[2020-06-12 13:32] VITALS: BP 135/71; PULSE 110; RESP 18; TEMP 36.8; O2SAT 97
[2020-06-13 10:14] LABS: Pathologist Review Reviewed
== END 2020-06-12 13:38 | disposition home or self-care (01) ==
LOC: ED 19:59 → MS3 21:50
PROVIDERS: Admitting Provider Hospitalist; Emergency Provider Emergency Medicine; PCP Family Medicine; Visit Provider Student in an Organized Health Care Education/Training Program
DX: R53.1 Weakness (principal); G47.33 Obstructive sleep apnea (adult) (pediatric); E78.5 Hyperlipidemia, unspecified; I27.21 Secondary pulmonary arterial hypertension; I11.0 Hypertensive heart disease with heart failure; I25.10 Atherosclerotic heart disease of native coronary artery without angina pectoris; R29.6 Repeated falls; E66.9 Obesity, unspecified; E11.65 Type 2 diabetes mellitus with hyperglycemia; I50.32 Chronic diastolic (congestive) heart failure; I48.0 Paroxysmal atrial fibrillation; R06.02 Shortness of breath; D50.9 Iron deficiency anemia, unspecified; R91.1 Solitary pulmonary nodule; Z79.4 Long term (current) use of insulin; Z79.899 Other long term (current) drug therapy; Z95.0 Presence of cardiac pacemaker; Z95.3 Presence of xenogenic heart valve; Z87.891 Personal history of nicotine dependence; K21.9 Gastro-esophageal reflux disease without esophagitis; M81.0 Age-related osteoporosis without current pathological fracture
CPT/HCPCS: 70450; 71045; 80048; 80053; 81001; 82306; 82533; 82607; 82962; 83880; 84443; 84484; 85025; 87426; 87804; 93005; 94640; 96372; 97162; 97166; 99218; 99285; A4216; G0378

== ENCOUNTER → 2020-08-04 07:29 | Outpatient (CLI) | payer MEDICARE, OTHER, SELFPAY ==
[2020-05-10 10:51] VITALS: BMI 30.8
[2020-06-11 22:39] VITALS: BMI 31.3
[2020-08-04 10:02] LABS: Absolute Lymphocyte Count 0.75 X10^3/uL (0.83-4.51); Absolute Neutrophil Count 3.5 X10^3/uL (2.0-7.7); Basophil# 0.05 X10^3/uL; Eosinophil# 0.08 X10^3/uL; Eosinophils% 1.6 % (0-5); Hematocrit 32.4 % (40-54); Hemoglobin 8.9 g/dL (13.0-16.5); Lymphocyte # 0.75 X10^3/ul (0.83-4.51); Lymphocyte % 15.2 % (19-41); Mean Corp Hgb Conc 27.5 g/dL (32-36); Mean Corpuscular Hgb 20.8 pg (27.0-32.0); Mean Corpuscular Volume 75.7 fL (80-94); Mean Platelet Vol. 11.1 fl (6.2-12.0); Monocyte# 0.54 X10^3/uL; NRBC Flagged by Analyzer 0 % (0-5); Platelet Count 215 K/mm3 (150-450); RBC Distribution Width CV 17.8 % (11.6-14.6); RBC Distribution Width SD 48.1 fl (35.1-43.9); Red Blood Count 4.28 M/mm3 (4.6-6.2); White Blood Count 4.9 K/mm3 (4.4-11.0)
[2020-08-04 10:33] LABS: Hemoglobin A1c 8.9 % (3.8-5.6)
[2020-08-04 10:36] LABS: ALB/GLOB Ratio 1.1 RATIO (0.9-2.4); AST(SGOT) 12 U/L (15-37); Alanine Aminotransfer ALT/SGPT 19 U/L (16-61); Albumin, Serum 3.8 g/dL (3.2-5.0); Alkaline Phosphatase 109 U/L (45-117); Anion Gap 6 (5-15); BUN 29 mg/dL (7-18); BUN/Creat Ratio 20.7 RATIO (10-20); Calcium,Total 8.8 mg/dL (8.5-10.1); Chloride 109 mmol/L (98-107); Cholesterol 112 mg/dL (200); EST Glomerular Filtration Rate 52 mL/min (>60); Est Glom Filt Rate - Afr Amer 63 mL/min (>60); Ferritin 11 ng/mL (26-388); Globulin 3.6 g/dL (2.2-4.2); Glucose 157 mg/dL (74-106); High Density Lipoprotein 29 mg/dL; Iron 28 ug/dL (65-175); Potassium 4.3 mmol/L (3.5-5.1); Protein, Total 7.4 g/dL (6.4-8.2); Sodium Level 139 mmol/L (136-145); Triglycerides 95 mg/dL; Very Low Density Lipoprotein 19 mg/dL (5-40)
== END ==
PROVIDERS: PCP Family Medicine; Referring Provider Family Medicine; Visit Provider Family Medicine
DX: I10 Essential (primary) hypertension (principal); D50.9 Iron deficiency anemia, unspecified; E08.21 Diabetes mellitus due to underlying condition with diabetic nephropathy
CPT/HCPCS: 36415; 80053; 80061; 82728; 83036; 83540; 85025

== ENCOUNTER → 2020-08-21 16:55 | Outpatient (CLI) | payer MEDICARE, OTHER, SELFPAY ==
[2020-08-16 06:26] VITALS: BMI 32.8
--- NOTE | 2020-08-21 17:05 | CT_ITS ---
STUDY: CT CHEST WITHOUT CONTRAST REASON FOR EXAM: Male, 79 years old. Lung Nodule RADIATION DOSAGE (If Supplied By Facility): CTDIvol = ( 17.39 ) mGy, DLP = ( 612.64 ) mGycm TECHNIQUE: Transaxial imaging was performed without the administration of intravenous contrast material. Individualized dose optimization techniques were used for this CT. COMPARISON: 2017 FINDINGS: Lung windows show that the previously described subcentimeter nodule in the right middle lobe has increased in size since the previous study. Previously measured 0.8 x 0.9 cm, on current study measures 1.55 x 1.29 cm. Because it is increased in size since the previous study, further evaluation with PET/CT is recommended to assess for metabolic activity. There is interstitial edema in both lung hoang with small bilateral pleural effusions and dependent atelectasis. No other suspicious noncalcified mass or nodule is noted. Soft tissue windows show normal-appearing thyroid gland. There are scattered subcentimeter axillary lymph nodes. There are borderline enlarged mediastinal lymph nodes measuring up to 1.56 cm in short axis dimension. 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 There is cardiomegaly. Pacer lead noted on the heart base. There are multi-level degenerative changes of the thoracic spine. There is no demonstrated abnormality of the visualized upper abdomen. CT/Chest without Contrast IMPRESSION: Previously described 0.8 x 0.9 cm noncalcified nodule in the right middle lobe is increased in size since the previous study, now measuring 1.55 x 1.29 cm. Because it is increased in size since the previous study, further evaluation with PET/CT recommended to assess for metabolic activity No other suspicious noncalcified mass or nodule. There is interstitial edema with small pleural effusions. Remote CABG with cardiomegaly. Enlarged mediastinal lymph nodes measuring up to 1.56 cm in short axis dimension concerning for possible metastasis Degenerative bony changes Electronically Signed: Jean Carlos Quiles MD at 10:53 EDT , Service support ,
== END ==
PROVIDERS: PCP Family Medicine; Referring Provider Internal Medicine Critical Care Medicine; Visit Provider Internal Medicine Critical Care Medicine
DX: R91.1 Solitary pulmonary nodule (principal)
CPT/HCPCS: 71250

== ENCOUNTER → 2020-08-24 10:14 | Outpatient (CLI) | payer MEDICARE, OTHER, SELFPAY ==
[2020-08-24 09:21] VITALS: BMI 32.8
[2020-08-24 10:38] LABS: Platelet Count 210 K/mm3 (150-450)
[2020-08-24 10:43] LABS: International Normalized Ratio 1.4; Prothrombin Time (Protime)PT. 16.5 SECONDS (11.7-14.9)
[2020-08-24 10:44] LABS: Partial Thromboplast Time 31.1 Seconds (24.1-36.2)
[2020-08-24 18:29] LABS: Xtra Tube EP Lab EXTRA TUBE
== END ==
PROVIDERS: PCP Family Medicine; Referring Provider Nurse Practitioner Acute Care; Visit Provider Nurse Practitioner Acute Care
DX: I50.32 Chronic diastolic (congestive) heart failure (principal); R91.1 Solitary pulmonary nodule; I35.0 Nonrheumatic aortic (valve) stenosis
CPT/HCPCS: 36415; 85049; 85610; 85730

== ENCOUNTER → 2020-08-28 20:04 | Outpatient (CLI) | payer MEDICARE, OTHER, SELFPAY ==
[2020-08-16 06:26] VITALS: BMI 32.8
[2020-08-24 09:21] VITALS: BMI 32.8
== END ==
PROVIDERS: PCP Family Medicine; Visit Provider Internal Medicine Critical Care Medicine
DX: G47.33 Obstructive sleep apnea (adult) (pediatric) (principal)
CPT/HCPCS: 95811

== ENCOUNTER → 2020-09-06 09:04 | Outpatient (CLI) | payer MEDICARE, OTHER, SELFPAY ==
[2020-08-24 09:21] VITALS: BMI 32.8
[2020-09-06] VITALS (16 sets, daily range): BP systolic 111–167; BP diastolic 49–77; PULSE 81–102; RESP 17–34; TEMP 36.7; O2SAT 70–100; BMI 32.8
--- NOTE | 2020-09-06 | ASPIGT_PTH ---
PATIENT: MIKALA WILSON LOC: [place] U#:[id number] AGE/SX: 84/M ROOM: RE09/06/[address]: ALEX Huber : 1940 BED: DIS: SPEC #: [id number] RECD: 09/06/20 10:30 STATUS: TRACIE MARYURI #: [id number] BRISEIDA: 09/06/20 00:[address]: Brissa Santoro NP DEPT: SURGICAL PATHOLOGY RECD BY: Markel Ferrer ENTERED: 09/06/20 11:21 SP TYPE: ASP RAD OTHR DR: Dr. 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 See comment. PAULO:luda 09/07/2020 COMMENT The specimen is evaluated at the time of biopsy by Dr. De La Vega. Immediate Evaluation = Atypical cells noted. Core biopsy predominantly consists of unremarkable lung parenchymal tissue with focal area of epithelial atypia. Smears prepared at the time of core biopsy shows atypical cells suspicious for malignancy, non-small cell carcinoma, bronchioloalveolar type. Correlation with clinical, radiologic findings and appropriate follow up are necessary. Re-biopsy is suggested if clinically indicated. Case has been reviewed in consultation with Dr. Ford who concurs with the above diagnosis. IDC:AM MICROSCOPIC DESCRIPTION Slides are reviewed. GROSS DESCRIPTION Received in fixative is one container labeled with the patient's name and designated right lung nodule. The specimen consists of multiple irregular fragments of pena soft tissue that in aggregate measure 1 x 0.1 x <0.1 cm. The specimen is totally submitted in one cassette. Two touch imprints are prepared at the time of core biopsy. / PAULO:luda 09/06/20 TC:5 CPT: 51670, 33981
--- NOTE | 2020-09-06 09:07 | CT_ITS ---
PROCEDURE: CT GUIDED CORE NEEDLE BIOPSY OF A right middle lobe LUNG LESION INDICATION: Male, 79 years old. Right middle lobe nodule now 1.5X1.3 cm PHYSICIAN: Dr. JEANETTE Daugherty CONSENT: Written informed consent was obtained having explained the risks, benefits and alternatives in detail with the patient who accepted the risks and agreed to proceed. Laboratory review and clinical assessment was performed. CONSCIOUS SEDATION PROTOCOL: The Drugs used were: 2 mg Versed, IV., and 50 mcg Fentanyl, IV. The sedation time was: 15 minutes. Conscious sedation was started at 10:11 AM and terminated at 1026. The conscious sedation protocol was independently monitored. RADIATION DOSAGE (If Supplied By Facility): CTDIvol = ( 19.6 ) mGy, DLP = ( 673.09 ) mGycm Individualized dose optimization techniques were used for this CT. TECHNIQUE: The patient was placed in the supine position position. A noncontrast CT was performed to localize the lesion in the medial right middle lobe . The skin surface was prepped and draped in a sterile fashion. 1% lidocaine was used for local anesthesia. Using CT guidance, a 20-gauge coaxial biopsy device was advanced to the periphery of the lesion. A total of 3 core specimens were obtained. The specimens were placed in a formalin solution. A post procedure CT demonstrated no adverse sequelae or pneumothorax. The patient tolerated the procedure well without adverse event. A negative biopsy does not exclude malignancy. Further imaging or clinical followup based on patient condition and degree of clinical suspicion for malignancy. Suggest rebiopsy, if biopsy results do not match with clinical scenario. CT/Biopsy/Inj or Needle Placement IMPRESSION: 1. CT directed core needle biopsy of the right middle lobe pulmonary nodule using CT image guidance with image documentation as described. Pathology results are pending. 2. Conscious Sedation protocol utilized with independent monitoring. Electronically Signed: Kalyan Grimm MD at 11:14 EDT , Service support ,
[2020-09-06] MEDS: Midazolam 2 MG/2 ML Syringe IV (10:11)
[2020-09-06] MEDS: fentaNYL 100 MCG/2 ML Ampul IV (10:11)
--- NOTE | 2020-09-06 10:38 | RAD_ITS ---
STUDY: X-RAY CHEST REASON FOR EXAM: Male, 79 years old. LUNG BX -- immediately post lung biopsy TECHNIQUE: AP inspiration and expiration views. COMPARISON: Comparison is made with prior study dated 06/11/2020. FINDINGS: The patient is status post right lung biopsy. No evidence of pneumothorax. RAD/Chest Insp/Exp 2 View IMPRESSION: No evidence of pneumothorax on the immediate postright lung biopsy radiographs. Electronically Signed: Kalyan Grimm MD at 11:09 EDT , Service support ,
--- NOTE | 2020-09-06 10:57 | NURSING ---
DR REID REMAINS IN ROOM WHILE PATH REVIEWS SAMPLES. PT DYSPNEIC AND COUGHING, HEMOPTYSIS. NRB APPLIED.
--- NOTE | 2020-09-06 10:59 | NURSING ---
PT TO RAD 3 FOR POST BIOPSY CXR. PT A&O X3. COUGHING RESOLVING.
--- NOTE | 2020-09-06 11:01 | NURSING ---
PT IN [place]. DENIES NEED TO COUGH, O2 SAT STILL REMAINS IN 80'S. DR REID REVIEWED CXR, NEGATIVE. PT DENIES NEEDS.
--- NOTE | 2020-09-06 11:20 | NURSING ---
PT'S FAMILY BROUGHT BACK TO THE [place] AND UPDATED REGARDING THE PT'S LOW PULSE OX. PT ALERT TO VOICE. RESTING WITH EYES CLOSED. DENIES SOB, NEED TO COUGH, OR PAIN.
--- NOTE | 2020-09-06 12:11 | NURSING ---
PT SWITCHED TO NC, BUT SATS NOT COMPARABLE, LOW 80'S. RETURNED TO NRB.
--- NOTE | 2020-09-06 12:12 | NURSING ---
PT 91% ON NRB. RESPIRATORY CALLED TO RADIOLOGY TO EVALUATE PT ON NRB. WILL KEEP PT ON NRB SATS ARE INCREASING AND PT IS NOT A RETAINER.
--- NOTE | 2020-09-06 12:30 | RAD_ITS ---
STUDY: X-RAY CHEST REASON FOR EXAM: Male, 79 years old. LUNG BIOPSY -- 2 hours post lung biopsy TECHNIQUE: AP inspiration and expiration views. COMPARISON: Comparison is made with prior examination done earlier today. FINDINGS: No evidence of pneumothorax on the 2 hour delayed postright lung biopsy examination. Increased markings at the right lung base most likely secondary to the biopsy. RAD/Chest Insp/Exp 2 View IMPRESSION: No evidence of pneumothorax on the 2 hour post right lung biopsy radiograph. Electronically Signed: Kalyan Grimm MD at 13:00 EDT , Service support ,
--- NOTE | 2020-09-06 13:31 | NURSING ---
PT C/O RT CHEST PAIN AT SITE OF BIOPSY. COMES AND GOES. DR ALMAZAN MADE AWARE. PAIN 08/14.
--- NOTE | 2020-09-06 13:36 | NURSING ---
PAIN 0/10.
--- NOTE | 2020-09-06 14:58 | NURSING ---
THIS RN CALLED [facility] OFFICE TO UPDATE THAT PT HAVING EXTENDED HYPOXIA FOLLOWING LUNG BX DESPITE NEGATIVE CXR. GIVEN ORDERS TO SEND PT TO ER IF HYPOXIC WITHOUT OXYGEN. PT AND WISH TO CONTINUE TO WAIT IN RADIOLOGY FOR OBSERVATION.
--- NOTE | 2020-09-06 15:00 | NURSING ---
PT AND BOTH VERBALIZED UNDERSTANDING OF SX TO RETURN TO ED WITH, SOB/CP. PT HAS HOME BP/SPO2 MONITOR TO CHECK AT HOME.
== END ==
PROVIDERS: PCP Family Medicine; Referring Provider Nurse Practitioner Acute Care; Visit Provider Nurse Practitioner Acute Care
DX: R91.1 Solitary pulmonary nodule (principal); I11.0 Hypertensive heart disease with heart failure; I50.32 Chronic diastolic (congestive) heart failure; I48.0 Paroxysmal atrial fibrillation; E11.9 Type 2 diabetes mellitus without complications; I25.10 Atherosclerotic heart disease of native coronary artery without angina pectoris; E78.5 Hyperlipidemia, unspecified; E03.9 Hypothyroidism, unspecified; D50.9 Iron deficiency anemia, unspecified; G47.33 Obstructive sleep apnea (adult) (pediatric); E66.9 Obesity, unspecified; M81.0 Age-related osteoporosis without current pathological fracture; Z79.4 Long term (current) use of insulin; Z79.899 Other long term (current) drug therapy; Z87.891 Personal history of nicotine dependence
CPT/HCPCS: 32408; 71046; 77012; 88172; 88305; 88313; 99156; J7040; A4216

== ENCOUNTER → 2020-09-19 14:26 | Outpatient (CLI) | payer MEDICARE, OTHER, SELFPAY ==
[2020-09-08 09:49] VITALS: BMI 32.8
--- NOTE | 2020-09-19 14:30 | PET_ITS ---
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 COMPARISON EXAMINATION: CT of the chest report dated 08/21/20 INDEX LESION SIZE SUV INTERPRETATION Right lower anterior lung-right middle lobe 18.3-mm (frame 206) 2.7 Fulfills quantitative criteria for viable neoplasm TECHNIQUE: Following the intravenous administration of 13.99 mCi of F-18 deoxyglucose via the left antecubital fossa, multiplanar image acquisitions of the neck, chest, abdomen and pelvis to level of mid thigh, obtained at one hour post radiopharmaceutical administration contemporaneously interpreted with the current CT of the neck, chest, abdomen and pelvis to level of mid thigh, dated 09/19/[address] of the chest report dated 08/21/20 reveal: SERUM GLUCOSE LEVEL: 60 mg/dl. HEIGHT: 63 inches. WEIGHT: 210 lbs. FINDINGS: 1. Focal increased glucose metabolism is defined in the right lower anterior lung-right middle lobe generating a calculated maximal standard uptake value of 2.7. The maximal axial diameter of the corresponding parenchymal density on review of CT of the chest dated 09/19/20 is 18.3-mm (transverse). 2. Normal physiologic distribution of the radiopharmaceutical is apparent in the hepatic (2.1) and splenic parenchyma, both renal units, bladder and visualized intestinal tract. The visualized portion of the cerebral cortical-subcortical structures demonstrate symmetric and preserved glucose metabolism. Diffuse radiopharmaceutical concentration is noted in all four quadrants of the abdomen and pelvis. A linear increase in tracer concentration is discerned in the mediastinal structures oriented in the horizontal plane most consistent with metallic reconstruction artifact. Pertinent CT findings are as follows: CHEST: There is evidence of prior median sternotomy. There is atherosclerotic calcification defined in the thoracic aorta without evidence of dilatation-aneurysm formation. Coronary arterial calcification is observed. Bilateral hemithorax pleural effusions demonstrate no evidence of quantitatively significant increased FDG uptake. Right and left axillary and scattered mediastinal soft tissue with fatty hilus is ametabolic. There are no additional parenchymal densities-nodules defined in the right and left hemithorax with discernible increased FDG concentration. ABDOMEN AND PELVIS: There is atherosclerotic calcification defined in the abdominal aorta without evidence of dilatation-aneurysm formation. Abdominal-pelvic arterial calcification is demonstrated. A fat containing right inguinal hernia is noted. Right and left inguinal soft tissue densities with fatty hilus are ametabolic. Exophytic and cortical cyst formation is defined in the bilateral kidneys. SKELETAL: Degenerative changes are noted in the cervical, thoracic and lumbar spine without evidence of increased radiopharmaceutical concentration. PET/PET/CT Tumor Base -Thigh Init IMPRESSION: 1. ABNORMAL EXAMINATION INDICATIVE OF MALIGNANT VIABLE NEOPLASM. 2. Increased glucose concentration observed in the right lower anterior lung-right middle lobe fulfills quantitative criteria for malignant transformation. (Tripathi et al, Annals of Internal Medicine, 138:724, 2003). 3. No other quantitatively significant hypermetabolic abnormalities are noted. There is no definitive scintigraphic evidence of distant metastatic disease. Electronic Signature Melvin Shen D.O. Accurate Quantification of SUVs for this report are calculated using the exclusive [employer] Technology. (U.S. Patent No. 10, 674, 983). Standardization and correction of the FDG SUV metric via [employer] technology allow for vendor non-specific objective quantitative examination comparison and optimization of the sensitivity and specificity of the FDG PET-CT examination. Electronically Signed: Melvin Shen DO at 22:27 EDT Tel , Service support ,
== END ==
PROVIDERS: PCP Family Medicine; Referring Provider Nurse Practitioner Acute Care; Visit Provider Nurse Practitioner Acute Care
DX: R91.8 Other nonspecific abnormal finding of lung field (principal); C34.2 Malignant neoplasm of middle lobe, bronchus or lung
CPT/HCPCS: 78815; A9552

== ENCOUNTER → 2020-11-02 11:17 | Outpatient (CLI) | payer MEDICARE, OTHER, SELFPAY ==
[2020-06-11 22:39] VITALS: BMI 31.3
[2020-09-21 16:10] VITALS: BMI 31.5
[2020-11-02 15:21] LABS: Absolute Lymphocyte Count 0.46 X10^3/uL (0.83-4.51); Absolute Neutrophil Count 3.6 X10^3/uL (2.0-7.7); Basophil# 0.03 X10^3/uL; Basophil% 0.6 % (0-1); Eosinophil# 0.06 X10^3/uL; Eosinophils% 1.3 % (0-5); Hematocrit 31.6 % (40-54); Hemoglobin 8.9 g/dL (13.0-16.5); Lymphocyte # 0.46 X10^3/ul (0.83-4.51); Lymphocyte % 9.9 % (19-41); Mean Corp Hgb Conc 28.2 g/dL (32-36); Mean Corpuscular Hgb 21.8 pg (27.0-32.0); Mean Corpuscular Volume 77.5 fL (80-94); Monocyte# 0.44 X10^3/uL; Monocyte% 9.5 % (0-10); NRBC Flagged by Analyzer 0 % (0-5); Neutrophil # 3.64 X10^3/uL (2.7-7.7); Neutrophil % 78.3 % (47-70); POSITIVE DIFFERENTIAL YES; POSITIVE MORPHOLOGY YES; Platelet Count 162 K/mm3 (150-450); RBC Distribution Width CV 20.6 % (11.6-14.6); RBC Distribution Width SD 57.4 fl (35.1-43.9); Red Blood Count 4.08 M/mm3 (4.6-6.2); White Blood Count 4.7 K/mm3 (4.4-11.0)
[2020-11-02 15:22] LABS: Differential Indicated SCAN CRITERIA MET
[2020-11-02 15:35] LABS: Hemoglobin A1c 7.9 % (3.8-5.6)
[2020-11-02 15:37] LABS: PSA,Total- Diagnostic 0.33 ng/mL (0.0-4.0)
[2020-11-02 15:43] LABS: Ferritin 15 ng/mL (26-388); Iron 39 ug/dL (65-175)
[2020-11-02 15:55] LABS: Anisocytosis 1+; Crenated RBC RARE; Ovalocyte RARE
[2020-11-02 15:56] LABS: Differential Comment SCANNED
== END ==
LOC: MTRAD 11:19 → MTLAB 11:21
PROVIDERS: Urology; PCP Family Medicine; Referring Provider Family Medicine; Visit Provider Family Medicine
DX: E11.40 Type 2 diabetes mellitus with diabetic neuropathy, unspecified (principal); D50.9 Iron deficiency anemia, unspecified; C61 Malignant neoplasm of prostate
CPT/HCPCS: 36415; 82728; 83036; 83540; 84153; 85025

== ENCOUNTER → 2021-01-15 13:03 | Outpatient (CLI) | payer MEDICARE, OTHER, SELFPAY ==
--- NOTE | 2021-01-15 13:05 | CT_ITS ---
STUDY: CT CHEST WITHOUT CONTRAST REASON FOR EXAM: Male, 80 years old. Monitoring lung cancer. RADIATION DOSAGE (If Supplied By Facility): CTDIvol = ( 15.69 ) mGy, DLP = ( 525.41 ) mGycm TECHNIQUE: Transaxial imaging was performed without the administration of intravenous contrast material. Individualized dose optimization techniques were used for this CT. COMPARISON: 21 Aug 2020 FINDINGS: Examination is technically different compared to prior with worse breath-holding resulting in indistinctness of appearance of interstitium and nodule borders. Diagnostic information is available. Right middle lobe lateral segment pleural-based nodule measures approximately 1.5 cm in greatest longitudinal dimension. The nodule has a flat border sitting on the major fissure. There has been development of minimal adjacent parenchymal extension/spiculation. However, allowing for differences between studies size is stable. There are multifocal dominantly peripheral groundglass opacities representing early intralobular fibrosis. Lungs are emphysematous. Airways are patent. There is a minimal left pleural effusion. 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 There are enlarged mediastinal lymph nodes, largest in the pretracheal location up to 1.5 cm, subcarinal station 1.9 cm. However, enlarged lymph nodes are within expected range in a patient with prior open heart surgery and with emphysema/fibrosis. CT/Chest without Contrast IMPRESSION: 1. Stable size, 1.5 cm, pleural-based right middle lobe nodule. 2. Possibly minimal development of surrounding spiculation, this can be reassessed at the time of subsequent follow-up. 3. Emphysema, early UIP. 4. Extensive cardiac disease. Electronically Signed: Bao Means MD at 18:30 EDT Tel , Service support ,
== END ==
PROVIDERS: PCP Family Medicine; Referring Provider Internal Medicine Medical Oncology; Visit Provider Internal Medicine Medical Oncology
DX: C34.2 Malignant neoplasm of middle lobe, bronchus or lung (principal)
CPT/HCPCS: 71250